=== PATIENT | female | born 1955 | race Caucasian/White ===

== ENCOUNTER → 2016-08-24 | Outpatient (REF) | payer OTHER ==
[~2016-08-24] MED LIST: ACET500T37 PO; AMLO5TAB2 PO; AMOX875T2 PO; BACITAB3 PO; BACT800T5 PO; CALMOIN EX; CEFA1INJ5 IV; COUM7.5T PO; DOCU10CA PO; DULC10SU2 PR; ELIQ5TAB PO; EUCECRE3 EXT; EUCECRE3 TOP; FERG1TAB PO; FERR32TA PO; FLUC10TA PO; FOLI1TAB2 PO; FURO40TA2 PO; GABA300C3 PO; GLIP5TAB15 PO; GLUC5TAB3 PO; HEPA100I16 IV; HEPA500020 SQ; INSUDET SC; INSUH10VL SC; INVO300T PO; LEVEINJ SC; METO10TA2 PO; MILKSUS PO; MIRA3350 PO; MOM30SS PO; MULT1TAB8 PO; NORCOTAB PO; NORM0.9I9 IV; NORV5TAB PO; NYST10PW TOP; PANT40TA2 PO; PERC5TAB6 PO; PHEN200T14 PO; PRED1SUS OS; PRIL40CA PO; PROT1TAB2 PO; PROTPAK PO; REGL10TA6 PO; SENN1TAB2 PO; SENO8.6T2 PO; SUCR1TA PO; TOPR25TA PO; TRAD5TAB PO; TYLE325T5 PO; ZOFR8TAB PO; ZOFR8TAB4 PO; [UNRECOGNIZED DRUG - CODE] IV
[2016-08-24 16:24] LABS: BASO # 0.2 K/mm3 (0.0-0.2); BASO % 2.2 % (0.0-1.0); EOS # 0.3 K/mm3 (0.0-0.50); EOS % 3.5 % (0.0-3.0); LARGE UNSTAINED CELL # 0.1 K/mm3 (0.0-0.4); LARGE UNSTAINED CELL % 1.6 % (0.0-4.0); LYMPH # 1.8 K/mm3 (1.5-4.5); LYMPH % 17.7 % (24.0-44.0); MEAN CORPUSCULAR HEMOGLOBIN 28.1 pg (27.0-33.0); MEAN CORPUSCULAR HGB CONC 31.6 g/dl (32.0-36.5); MEAN CORPUSCULAR VOLUME 88.8 fl (80.0-96.0); MONO # 0.4 K/mm3 (0.0-0.8); MONO % 4.4 % (0.0-5.0); NEUTROPHILS # 6.4 K/mm3 (1.8-7.7); NEUTROPHILS % 70.6 % (36.0-66.0); PLATELET COUNT, AUTOMATED 402 k/mm3 (150-450); RED CELL DISTRIBUTION WIDTH 15.1 % (11.5-14.5); WHITE BLOOD COUNT 9.1 K/mm3 (4.0-10.0)
[2016-08-24 16:49] LABS: ERYTHROCYTE SEDIMENTATION RATE 62 mm/hr (0-30)
[2016-08-24 17:59] LABS: ALBUMIN 3.2 GM/DL (3.2-5.2); ALBUMIN/GLOBULIN RATIO 0.71 (1.00-1.93); ALKALINE PHOSPHATASE 139 U/L (45-117); ALT/SGPT 22 U/L (12-78); ANION GAP 12 MEQ/L (8-16); AST/SGOT 32 U/L (15-37); BILIRUBIN,TOTAL 0.7 MG/DL (0.2-1.0); BLOOD UREA NITROGEN 16 MG/DL (7-18); CALCIUM LEVEL 8.9 MG/DL (8.8-10.2); CARBON DIOXIDE LEVEL 22 MEQ/L (21-32); CHLORIDE LEVEL 106 MEQ/L (98-107); CREATININE FOR GFR 0.92 MG/DL (0.55-1.02); GLOMERULAR FILTRATION RATE > 60.0 (>45); GLUCOSE, FASTING 97 MG/DL (80-110); POTASSIUM SERUM 5.1 MEQ/L (3.5-5.1); SODIUM LEVEL 140 MEQ/L (136-145); TOTAL PROTEIN 7.7 GM/DL (6.4-8.2)
== END ==
LOC: M SFHCPLAZ 15:22
PROVIDERS: ATTEND Internal Medicine Infectious Disease
DX: M86.172 Other acute osteomyelitis, left ankle and foot (principal); E11.621 Type 2 diabetes mellitus with foot ulcer

== ENCOUNTER → 2016-09-13 | Outpatient (CLI) | payer OTHER ==
[2016-09-13 15:02] LABS: BASO % 0.4 % (0.0-1.0); EOS # 0.2 K/mm3 (0.0-0.50); EOS % 2.9 % (0.0-3.0); LARGE UNSTAINED CELL # 0.1 K/mm3 (0.0-0.4); LARGE UNSTAINED CELL % 1.6 % (0.0-4.0); LYMPH # 1.7 K/mm3 (1.5-4.5); LYMPH % 19.8 % (24.0-44.0); MEAN CORPUSCULAR HEMOGLOBIN 27.9 pg (27.0-33.0); MEAN CORPUSCULAR HGB CONC 31.6 g/dl (32.0-36.5); MEAN CORPUSCULAR VOLUME 88.2 fl (80.0-96.0); MONO # 0.4 K/mm3 (0.0-0.8); MONO % 4.3 % (0.0-5.0); NEUTROPHILS % 70.9 % (36.0-66.0); PLATELET COUNT, AUTOMATED 413 k/mm3 (150-450); RED CELL DISTRIBUTION WIDTH 13.7 % (11.5-14.5); WHITE BLOOD COUNT 8.5 K/mm3 (4.0-10.0)
[2016-09-13 15:03] LABS: INR 1.26
[2016-09-13 15:08] LABS: CREATININE FOR GFR 1.04 MG/DL (0.55-1.02); GLOMERULAR FILTRATION RATE 57.2 (>45); POTASSIUM SERUM 4.9 MEQ/L (3.5-5.1)
== END ==
LOC: M LAB 14:08
PROVIDERS: ATTEND Surgery Vascular Surgery
DX: Z01.818 Encounter for other preprocedural examination (principal); I70.212 Atherosclerosis of native arteries of extremities with intermittent claudication, left leg; D69.8 Other specified hemorrhagic conditions

== ENCOUNTER → 2016-09-29 | Outpatient (REF) | payer OTHER ==
[2016-09-29 14:26] LABS: BASO % 0.2 % (0.0-1.0); EOS # 0.3 K/mm3 (0.0-0.50); EOS % 3.5 % (0.0-3.0); LARGE UNSTAINED CELL # 0.1 K/mm3 (0.0-0.4); LARGE UNSTAINED CELL % 1.4 % (0.0-4.0); LYMPH # 1.3 K/mm3 (1.5-4.5); LYMPH % 16.4 % (24.0-44.0); MEAN CORPUSCULAR HEMOGLOBIN 28.4 pg (27.0-33.0); MEAN CORPUSCULAR HGB CONC 31.8 g/dl (32.0-36.5); MEAN CORPUSCULAR VOLUME 89.3 fl (80.0-96.0); MONO # 0.3 K/mm3 (0.0-0.8); MONO % 3.8 % (0.0-5.0); NEUTROPHILS # 6.1 K/mm3 (1.8-7.7); NEUTROPHILS % 74.8 % (36.0-66.0); PLATELET COUNT, AUTOMATED 367 k/mm3 (150-450); RED CELL DISTRIBUTION WIDTH 13.5 % (11.5-14.5); WHITE BLOOD COUNT 8.1 K/mm3 (4.0-10.0)
[2016-09-29 15:42] LABS: ERYTHROCYTE SEDIMENTATION RATE 49 mm/hr (0-30)
== END ==
LOC: M SFHCPLAZ 13:26
PROVIDERS: ATTEND Internal Medicine Infectious Disease
DX: L97.512 Non-pressure chronic ulcer of other part of right foot with fat layer exposed (principal)

== ENCOUNTER → 2016-09-30 | Outpatient (REF) | payer OTHER | LOC: M LAB REF 16:26 | PROVIDERS: ATTEND Surgery | DX: E11.621 Type 2 diabetes mellitus with foot ulcer (principal); L97.414 Non-pressure chronic ulcer of right heel and midfoot with necrosis of bone ==

== ENCOUNTER → 2016-10-21 | Outpatient (REF) | payer OTHER | LOC: M LAB REF 17:08 | PROVIDERS: ATTEND Surgery | DX: E11.621 Type 2 diabetes mellitus with foot ulcer (principal); L97.519 Non-pressure chronic ulcer of other part of right foot with unspecified severity ==

== ENCOUNTER → 2016-11-01 | Outpatient (REF) | payer OTHER | LOC: M SFHCPLAZ 15:07 | PROVIDERS: ATTEND Internal Medicine Infectious Disease | DX: M86.371 Chronic multifocal osteomyelitis, right ankle and foot (principal) ==

== ENCOUNTER → 2016-11-02 | Outpatient (CLI) | payer OTHER ==
[2016-11-02 16:53] LABS: BASO % 0.4 % (0.0-1.0); EOS # 0.3 K/mm3 (0.0-0.50); EOS % 3.1 % (0.0-3.0); LARGE UNSTAINED CELL # 0.1 K/mm3 (0.0-0.4); LARGE UNSTAINED CELL % 1.3 % (0.0-4.0); LYMPH # 1.7 K/mm3 (1.5-4.5); LYMPH % 19.3 % (24.0-44.0); MEAN CORPUSCULAR HGB CONC 32.2 g/dl (32.0-36.5); MEAN CORPUSCULAR VOLUME 93.1 fl (80.0-96.0); MONO # 0.4 K/mm3 (0.0-0.8); MONO % 4.4 % (0.0-5.0); NEUTROPHILS # 5.9 K/mm3 (1.8-7.7); NEUTROPHILS % 71.4 % (36.0-66.0); PLATELET COUNT, AUTOMATED 350 k/mm3 (150-450); RED CELL DISTRIBUTION WIDTH 13.6 % (11.5-14.5); WHITE BLOOD COUNT 8.3 K/mm3 (4.0-10.0)
[2016-11-02 17:05] LABS: ANION GAP 7 MEQ/L (8-16); BLOOD UREA NITROGEN 27 MG/DL (7-18); CALCIUM LEVEL 8.8 MG/DL (8.8-10.2); CARBON DIOXIDE LEVEL 25 MEQ/L (21-32); CHLORIDE LEVEL 104 MEQ/L (98-107); CREATININE FOR GFR 0.93 MG/DL (0.55-1.02); GLOMERULAR FILTRATION RATE > 60.0 (>45); GLUCOSE, FASTING 129 MG/DL (80-110); SODIUM LEVEL 136 MEQ/L (136-145)
[2016-11-02 17:10] LABS: POTASSIUM SERUM 5.7 MEQ/L (3.5-5.1)
[2016-11-02 17:24] LABS: ERYTHROCYTE SEDIMENTATION RATE 49 mm/hr (0-30)
== END ==
LOC: M WUC 12:10
PROVIDERS: ATTEND Internal Medicine Infectious Disease
DX: M86.371 Chronic multifocal osteomyelitis, right ankle and foot (principal)

== ENCOUNTER 2017-03-05 23:40 | Inpatient (IN) | payer OTHER ==
[~2017-03-05] VITALS: Ht 162.6 cm; Wt 77.2 kg
[~2017-03-05 23:40] MED LIST changes: +ACET-683 PO; -ACET500T37 PO; +BACITAB PO; -BACITAB3 PO; -FOLI1TAB2 PO; +FOLI1TAB4 PO; +GABA-282 PO; -GABA300C3 PO; +GLIP1TAB49 PO; -GLIP5TAB15 PO; +PERC5TAB12 PO; -PERC5TAB6 PO; +PHEN-501 PO; -PHEN200T14 PO; -SENO8.6T2 PO; +SENO8.6T5 PO
[2017-03-05] MEDS ORDERED: INVO100T PO (23:59)
[2017-03-05] MEDS ORDERED: BRIM2OPD OS (23:59)
[2017-03-05] MEDS ORDERED: NOVOINJ3 SC (23:59)
[2017-03-05] MEDS ORDERED: GABA-279 PO (23:59)
[2017-03-05] MEDS ORDERED: LATA5OPD OS (23:59)
[2017-03-06 01:59] LABS: BASO % 0.6 % (0.0-1.0); EOS # 0.3 K/mm3 (0.0-0.50); EOS % 4.5 % (0.0-3.0); LARGE UNSTAINED CELL # 0.2 K/mm3 (0.0-0.4); LARGE UNSTAINED CELL % 2.7 % (0.0-4.0); LYMPH # 1.4 K/mm3 (1.5-4.5); LYMPH % 19.5 % (24.0-44.0); MEAN CORPUSCULAR HEMOGLOBIN 29.9 pg (27.0-33.0); MEAN CORPUSCULAR HGB CONC 33.2 g/dl (32.0-36.5); MEAN CORPUSCULAR VOLUME 90.2 fl (80.0-96.0); MONO # 0.4 K/mm3 (0.0-0.8); NEUTROPHILS # 4.7 K/mm3 (1.8-7.7); NEUTROPHILS % 66.6 % (36.0-66.0); PLATELET COUNT, AUTOMATED 372 k/mm3 (150-450); RED CELL DISTRIBUTION WIDTH 13.1 % (11.5-14.5)
[2017-03-06 02:20] LABS: ANION GAP 7 MEQ/L (8-16); BLOOD UREA NITROGEN 20 MG/DL (7-18); CALCIUM LEVEL 8.1 MG/DL (8.8-10.2); CARBON DIOXIDE LEVEL 25 MEQ/L (21-32); CHLORIDE LEVEL 106 MEQ/L (98-107); CREATININE FOR GFR 0.95 MG/DL (0.55-1.02); GLOMERULAR FILTRATION RATE > 60.0 (>45); GLUCOSE, FASTING 178 MG/DL (80-110); SODIUM LEVEL 138 MEQ/L (136-145)
[2017-03-06 03:38] LABS: ERYTHROCYTE SEDIMENTATION RATE 61 mm/hr (0-30)
[2017-03-06] MEDS ORDERED: ALEV220C2 PO (04:20)
[2017-03-06] MEDS ORDERED: INSUDET SC (04:20)
[2017-03-06] MEDS ORDERED: NORC1TAB4 PO (04:20)
[2017-03-06] MEDS ORDERED: FERR325T16 PO (04:20)
[2017-03-06] MEDS ORDERED: ONDANSETRON 4MG/2ML VIAL (J2405) IV PRN (04:30)
[2017-03-06] MEDS ORDERED: DEXTROSE 50% 50 ML SYRINGE IV PRN (04:30)
[2017-03-06] MEDS ORDERED: GLUCAGON FOR INJ 1 MG VIAL (J1610) SC PRN (04:30)
[2017-03-06] MEDS ORDERED: GLUCOSE 4 GM CHEW TABLET PO PRN (04:30)
[2017-03-06] MEDS ORDERED: ACETAMINOPHEN TAB 650MG DOSE (2X325MG) PO PRN (04:30)
--- NOTE | 2017-03-06 04:44 | REP ---
Clinical: Gangrene. Technique: AP, lateral, bilateral oblique views of the left toes. Findings: The osseous structures demonstrate a somewhat mottled heterogeneous appearance primarily noted extending from the mid metatarsal bones to the distal phalanges. Destructive changes at the second proximal interphalangeal joint is appreciated. Swelling and scattered subcutaneous emphysema primarily involving the first toe with ulceration at the terminal tuft is suggested. Impression: Swelling and advanced degenerative changes as described above. Subcutaneous emphysema and ulceration primarily involving the first toe. Signed by Wallace Renae MD 03/06/2017 04:36 A
[2017-03-06] MEDS ORDERED: ISOVUE-370 76% 100ML VIAL (Q9967) As Ordered ONE (04:55)
[2017-03-06] MEDS ORDERED: NS 1,000 ML IV SCH (05:00)
[2017-03-06 06:00] VITALS: BP 160/75
[2017-03-06] MEDS: MEROPENEM INJ 1 GM in D5W MINI-BAG PLUS 100 ML IV SCH ×3 (06:18→22:41)
--- NOTE | 2017-03-06 06:20 | REPUSA ---
Indication: Bilateral lower extremities also. Evaluate perfusion. Technique: Axial CT angiographic images with intravenous contrast. Reformatted coronal and sagittal i mages. Volume rendering images. Findings: Atherosclerotic calcifications of the infrarenal aorta without high-grade stenosis. Mild multifocal narrowing of the right external iliac artery secondary to atheromatous plaques. Mild narrowing of the right common femoral artery. Moderate narrowing of the takeoff of the right superficial femoral artery. Mild multifocal narrowing of the right deep femoral artery. Moderate multifocal narrowing of the right superficial femoral artery marked prominent in its distal third. Moderate narrowing of the right popliteal artery. Diffuse atheromatous plaques in the right posterior tibial, anterior tibial and peroneal arteries. As sociated mild multilevel narrowing. Mild multifocal narrowing of the left external iliac artery. Mild multifocal narrowing of the left superficial femoral artery. Moderate narrowing of the distal third of the left superficial femoral artery. Moderate to severe narrowing of the left popliteal artery. Moderate multifocal narrowing of the left posterior tibial, anterior tibial and peroneal arteries. Bilateral calcaneal soft tissue ulcers are noted. Impression: Bilateral calcaneal soft tissue ulcers. Moderate to severe multilevel occlusive atheromatous disease of the arteries of the lower extremities as detailed above.
[2017-03-06 06:41] LABS: BASO % 0.3 % (0.0-1.0); EOS # 0.4 K/mm3 (0.0-0.50); EOS % 5.3 % (0.0-3.0); LARGE UNSTAINED CELL # 0.2 K/mm3 (0.0-0.4); LYMPH # 1.6 K/mm3 (1.5-4.5); MEAN CORPUSCULAR HGB CONC 33.4 g/dl (32.0-36.5); MEAN CORPUSCULAR VOLUME 89.9 fl (80.0-96.0); MONO # 0.5 K/mm3 (0.0-0.8); MONO % 7.6 % (0.0-5.0); NEUTROPHILS # 4.5 K/mm3 (1.8-7.7); NEUTROPHILS % 63.8 % (36.0-66.0); PLATELET COUNT, AUTOMATED 360 k/mm3 (150-450); RED CELL DISTRIBUTION WIDTH 13.3 % (11.5-14.5)
[2017-03-06 06:59] LABS: ALBUMIN 2.5 GM/DL (3.2-5.2); ALBUMIN/GLOBULIN RATIO 0.58 (1.00-1.93); ALKALINE PHOSPHATASE 152 U/L (45-117); ALT/SGPT 22 U/L (12-78); ANION GAP 6 MEQ/L (8-16); AST/SGOT 19 U/L (15-37); BILIRUBIN,TOTAL 0.5 MG/DL (0.2-1.0); BLOOD UREA NITROGEN 17 MG/DL (7-18); CALCIUM LEVEL 8.3 MG/DL (8.8-10.2); CARBON DIOXIDE LEVEL 25 MEQ/L (21-32); CHLORIDE LEVEL 108 MEQ/L (98-107); CREATININE FOR GFR 0.87 MG/DL (0.55-1.02); GLOMERULAR FILTRATION RATE > 60.0 (>45); GLUCOSE, FASTING 85 MG/DL (80-110); MAGNESIUM LEVEL 2.4 MG/DL (1.8-2.4); POTASSIUM SERUM 3.9 MEQ/L (3.5-5.1); SODIUM LEVEL 139 MEQ/L (136-145); TOTAL PROTEIN 6.8 GM/DL (6.4-8.2)
--- NOTE | 2017-03-06 07:20 | HPE ---
DATE OF ADMISSION: 03/06/2017 CHIEF COMPLAINT: Left foot maggot. PRIMARY CARE PROVIDER: Dr. Stephanie Murphy. IMPRESSION PRINTER: Dr. Ledbetter. INFECTIOUS DISEASE: Dr. Power. PODIATRY: Dr. Raya. VASCULAR SURGEON: Dr. Espinoza. 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 The patient was brought in here because earlier today the patient has been receiving wound care services from Dr. Ledbteter, last wound care was Monday. Earlier today the patient had a dressing change by and saw maggot in her left great toe, subsequently called emergency medical services (EMS). The patient denies any fever or chills, chest pain, pressure or discomfort. The patient stated that she has been following wound care recommendation by Dr. Ledbetter. Also, the patient reported that recently, a year ago, she had seen Dr. Espinoza with balloon angioplasty for peripheral vascular disease. Denies any vision or hearing change, nausea or vomiting. She is tolerating oral. ALLERGIES: CODEINE and HEPARIN. PAST MEDICAL HISTORY: 1. Cataracts. 2. DVT. 3. Hypertension. 4. Type 2 diabetes, insulin dependent. 5. Right hip fracture. 6. Bilateral heel ulcers with osteomyelitis, Pseudomonas, VRE and Enterobacter. PAST SURGICAL HISTORY: 1. Debridement of right heel January 2016. 2. Right hip fracture with hemiarthroplasty January 2016. 3. Hysterectomy. 4. Cholecystectomy. 5. Bilateral cataract surgery. 6. Bilateral lower extremity balloon angioplasty. FAMILY HISTORY: Father with coronary artery disease. Mother with diabetes. Sister with diabetes. SOCIAL HISTORY: The patient lives at home with . Denies smoking or alcohol usage. No illicit drug use. REVIEW OF SYSTEMS: Negative except for bilateral lower extremity wound. HOME MEDICATIONS: - [place] 5/325 every eight hours as needed - Aleve 220 mg by mouth every eight hours as needed - Eliquis 5 mg by mouth twice a day - brimonidine eye drops three times daily - Invokana 100 mg by mouth daily - ferrous gluconate 324 mg by mouth twice a day - gabapentin 100 mg by mouth twice a day - NovoLog 5 units sub cu every evening - Levemir insulin 4 units sub cu every evening - Latanoprost eye drops intraocular every evening PHYSICAL EXAMINATION: VITAL SIGNS: Temperature 98.6, pulse 70, respirations 18, blood pressure 142/63, pulse oxygen 98% on room air. GENERAL: The patient is awake, alert and oriented times three, in no acute distress. HEENT: Normocephalic atraumatic. PULMONARY; Bilaterally clear to auscultation. Cardiac: Regular rate and rhythm, normal S1, S2. ABDOMEN: Soft, nontender, positive bowel sounds. EXTREMITIES: Dorsalis pedal/ posterior tibial (DP/PT) pulses bilateral thready. Extremities seem to be warm and perfused. Right foot, great toe with stage II ulcers and also stage III heel ulcers. Left foot great toe with bleeding and maggots small in size crawling. They are numerous, more in the teens and close to 200 maggots and also heel ulcers stage III with mild erythema and tissue necrosis on the great toe as well. LABORATORY DATA: WBC 7, hemoglobin 10.5, hematocrit 31.8, platelets 372. Chemistries: Sodium 138, potassium 4, chloride 106, bicarbonate 25, BUN 20, creatinine 0.95, C-reactive protein 12. RADIOLOGIC IMAGING: Still pending. ASSESSMENT AND PLAN: This is a 61-year-old female patient with underlying medical history of deep venous thrombosis (DVT), cataracts, type 2 diabetes insulin dependent, hypertension, bilateral heel osteomyelitis, with vancomycin resistant Enterococci (VRE) Pseudomonas and Enterobacter cultures, with diabetic foot ulcer presented with maggots crawling on her left great toe. PROBLEMS: 1. Maggots crawling on her left great toe likely with tissue necrosis, likely osteomyelitis. Will get MRI of bilateral lower extremities, as well as CT angio to assess blood perfusion. Will consult Dr. Raya in the morning. Followup cultures, would culture, blood culture, given history of infection. The patient has elevated C-reactive protein. The patient likely also has osteomyelitis given history of Pseudomonas, VRE, as well as Enterobacter will place the patient on Meropenem, Linezolid for the time being. The patient does not appear septic but will likely give some intravenous fluids given patient will be given contrast for the CT angio. Will consider vascular consultation based on the CT angio report. Obtain infectious disease consult based on cultures. Will obtain A1c to assess diabetic glucose control. 2. History of deep venous thrombosis (DVT): Continue Eliquis. 3. Diabetes type 2. Continue basal bolus insulin. Followup A1c. Followup fingersticks. 4. Hypertension. Continue to monitor blood pressure. Patient is currently not on any blood pressure medication. 5. Iron deficiency. Continue iron supplementation. 6. Cataracts. Continue home medication. 7. Deep venous thrombosis prophylaxis. The patient is on Eliquis for treatment of DVT. DISPOSITION: Pending clinical improvement, podiatry followup, wound care.
[2017-03-06] MEDS: HumaLOG INSULIN (NovoLOG) PER UNIT SC SCH ×4 (07:30→20:20)
[2017-03-06] MEDS: LACTOBACILLUS ACIDOPHILUS CAP (BACID) PO SCH ×3 (08:57→18:17)
[2017-03-06] MEDS: LINEZOLID 600 MG in APPROPRIATE DILUENT 1 EA IV SCH ×2 (08:57→20:19)
[2017-03-06] MEDS: APIXABAN 5 MG TAB (ELIQUIS) PO SCH ×2 (08:58→20:19)
[2017-03-06] MEDS: GABAPENTIN 100 MG CAP PO SCH ×2 (08:58→20:19)
[2017-03-06] MEDS: FERROUS GLUCONATE 324 MG TAB PO SCH ×2 (08:58→20:19)
[2017-03-06] MEDS: BRIMONIDINE 0.15% OPHTH SOLN 5 ML OS SCH ×3 (08:59→20:19)
[2017-03-06] MEDS: SENOKOT S TAB PO SCH ×2 (08:59→20:19)
[2017-03-06 14:00] VITALS: BP 185/84
--- NOTE | 2017-03-06 15:58 | IPN ---
DATE: 03/06/2017 Time: 11:30 a.m. The patient has been seen and examined at the bedside. No acute events overnight. The patient denies any chest pain, trouble breathing, abdominal pains, nausea, vomiting. Still admits to maggots in the left big toe. At the time of interview, Dr. Raya was also in the room and was going to start debridement of the necrotic skin and try to remove the maggots. PHYSICAL EXAMINATION: VITAL SIGNS: Temperature 97.2, pulse 82, respirations 18, blood pressure 160/75. Oxygen saturation at 99% on room air. GENERAL: The patient was alert, awake, oriented times three. Does not appear to be in distress. Laying comfortably in bed with head elevated at 45 degree angle. HEENT: Normocephalic, atraumatic. Extraocular motors intact. Mucous moist. NECK: Supple. No neck lymphadenopathy. CARDIOVASCULAR: Regular rate and rhythm, normal S1, S2. Difficult to auscultate due to increased AP diameter. ABDOMEN: Obese, positive bowel sounds. Soft. No peritoneal signs. No ecchymosis. EXTREMITIES: Trace edema in bilateral lower extremity. The patient has floating boats on bilateral lower extremity. Big toe bilaterally shows necrotic wounds. The left side is much worse. The left side of the big toe also has numerous maggots on the tip of the big toe. At least 10 of them. Appears to be roughly half a centimeter long and 1 mm wide and appears to be very active, moving around on the toe. SKIN: Warm and dry. NEUROLOGICAL: Cranial nerves II through XII intact. LABS: WBC 7, hemoglobin 10.5, hematocrit 31.3 with platelet count of 360 and MCV of 89.9. Sodium 139, potassium 3.9, chloride 108. Bicarbonate 25, anion gap was 6. BUN 17 , creatinine 0.87. GFR greater than 60. Fasting glucose 85. Ac1 was 6. Calcium 8.3 , magnesium 2.4, total bilirubin 0.5, AST 19, ALT 22, alkaline phosphatase 152. CRP was 13.2, total protein 6.8, albumin 2.5. The patient's glucose was 199. Gram stain and culture of the right and also left foot are pending. Blood cultures times two are pending. The patient's toe x-ray from earlier this morning shows swelling and advanced degenerative changes, subcutaneous emphysema and ulceration primarily involving the first toe. The patient's CT angio of the left lower extremity shows bilateral calcaneal soft tissue ulcer, moderate to severe, multiple occlusions through atheromatous disease of the arteries of the lower extremity. ASSESSMENT AND PLAN: 61-year-old female with past medical history most significantly for history of deep venous thrombosis (DVT), hypertension, insulin dependent type 2 diabetes, right hip fracture, bilateral heel ulcers and osteomyelitis with pseudomonas and vancomycin-resistant Enterococci (VRE) and Enterobacter in the past. Status post debridement presented with: 1. Maggots infestation of the left great toe, likely secondary to tissue necrosis and possibly osteomyelitis. MRI of bilateral lower extremities has been ordered. CT angio shows significant peripheral vascular disease. Dr. Raya has seen patient this morning and will start on debridement and maggot removal. In addition, Dr. Espinoza our vascular surgeon will be consulted who has seen the patient in the past. At this point, will start the patient on IV antibiotics linezolid and meropenem for suspected osteomyelitis and continue to followup with wound culture and blood culture. 2. History of DVT. Continue Eliquis. 3. Type 2 diabetes. Continue basal insulin. A1c appears to be 6, at goal. Continue to monitor. 4. Hypertension. Continue to monitor blood pressure. 5. Iron deficiency anemia. Continue iron supplement. 6. Cataracts. Continue home medication. 7. DVT prophylaxis. On Eliquis. DISPOSITION: Pending debridement of the left big toe by Dr. Raya. Dr. Espinoza will be consulted for possibly vascular procedure. At this point will continue wound care and continue IV antibiotics for possible osteomyelitis. The patient has been discussed with attending doctor, Dr. Dorsey. I have both independently examined this patient as well as reviewed the dictated note. I have discussed in detail with the resident the findings and plan of treatment as documented in the residents note. I will continue to follow the patient and offer further guidance to the patients care as necessary during this hospital stay. TERESA
--- NOTE | 2017-03-06 16:09 | ECGEPIP ---
Stationary ECG Study [facility] Test Date: 2017-03-06 Pat Name: SPEEDY DUEÑAS Department: Room: [place] [address] Gender: F Education And Training Coordinator: REEMA : 1955 Requested By: ISMAEL MARR Order Number: [id number] Reading MD: Pepe Dorsey Measurements Intervals [place] Rate: 80 P: 48 [place]: 162 QRS: -32 QRSD: 75 T: 78 QT: 398 QTc: 460 Interpretive Statements SINUS RHYTHM MARKED LEFT AXIS DEVIATION NONSPECIFIC T-WAVE ABNORMALITY Borderline prolonged QTc Electronically Signed On 03-06-2017 16:08:51 EDT by Pepe Dorsey
[2017-03-06] MEDS: NORCO, ANEXSIA 5/325MG TABLET (HYDROcodone/ACETAMINOPHEN) PO PRN (19:00)
--- NOTE | 2017-03-06 19:10 | REPUSA ---
MRI of the left foot with and without contrast Clinical History: infection, rule out osteomyelitis. Technique: Multiecho, Multiplanar MRI images of the Left foot were obtained before and after admini stration of intravenous gadolinium contrast. Comparison: None. Findings: There are ill-defined areas of T1 hypointensity within the calcaneus along the lateral aspe ct, and demonstrates T2 edema. A soft tissue defect is seen adjacent to the lateral aspect of the ramy caneus in the region of the heel. No focal evidence of abscess is identified, although inflammatory c hanges are seen throughout the subcutaneous tissues at the site. Impression: 1. Signal abnormalities within the lateral posterior aspect of the left calcaneus with the lateral sk in defect. This the findings are suspicious for a tiny focus of osteomyelitis with possible small are a of cellulitis in the lateral heel. 2. No focal enhancing mass or abscess is identified.
[2017-03-06] MEDS: LATANOPROST 0.005% OPHTH SOLN 2.5 ML OS SCH (20:19)
[2017-03-06] MEDS: LEVEMIR (INSULIN DETEMIR) 1 UNITS/0.01ML SC SCH (20:20)
[2017-03-06 22:00] VITALS: BP 131/62
[2017-03-07] MEDS: MEROPENEM INJ 1 GM in D5W MINI-BAG PLUS 100 ML IV SCH ×3 (05:40→23:23)
[2017-03-07 06:00] VITALS: BP 144/63
--- NOTE | 2017-03-07 06:07 | IPN ---
DATE: 03/06/2017, approximately 12:15 p.m. CHIEF COMPLAINT: 61-year-old female seen for evaluation of ulcer with necrotic changes on her left great toe. Patient is seen today for evaluation. PAST MEDICAL HISTORY: Cataracts. Deep vein thrombosis. Hypertension. Type 2 diabetes. Right hip fracture. Bilateral heel ulcers. PAST SURGICAL HISTORY: Debridement of right heel ulcer. Repair of hip fracture with hemiarthroplasty. Hysterectomy. Cholecystectomy. Bilateral cataracts. Lower extremity balloon angioplasties. HOME MEDICATIONS: - [place] 5/325 - Aleve 220 - Eliquis 5 mg - Brimonidine three times a day - Invokana 100 mg daily - ferrous gluconate 324 mg - gabapentin 100 mg twice a day - NovoLog 5 units subcutaneous - Levemir insulin 4 units subcutaneous every evening - Latanoprost eye drops every evening Evaluation of the patient's foot reveals an ulceration present on the plantar surface of the left foot. This ulceration has necrotic changes at the end and there is maggots in the interdigital spaces as well as the ulcer itself. The ulcer on the right hallux measures 2.5 cm from medial to lateral and 3.5 cm from distal to proximal. The distal phalanx is visible in the wound with some discoloration. The plantar ulcer is dark in color. Her pedal pulses are not palpable. Maggots are present in the wound as well as in the interdigital spaces. After appropriate informed consent and appropriate time out, utilizing a sterile curette, the ulcer was debrided. The maggots were sent for identification. The wound was cleaned with saline and a dry sterile dressing was applied. Patient is a patient of Dr. Espinoza'kimberly who will evaluate this patient for her arterial disease. Her hallux does not appear to be salvageable. Her questions are answered. Dr. Ledbetter has been treating her bilateral extremity ulcers. Would recommend continuing with his therapy on the heels and right hallux. Dressings on the right foot would include daily wound changes with utilizing Vashe, however, amputation will probably be required. Her questions are answered. Thank you for this consultation.
[2017-03-07 06:37] LABS: MEAN CORPUSCULAR HEMOGLOBIN 29.8 pg (27.0-33.0); MEAN CORPUSCULAR HGB CONC 32.8 g/dl (32.0-36.5); MEAN CORPUSCULAR VOLUME 90.7 fl (80.0-96.0); RED CELL DISTRIBUTION WIDTH 13.3 % (11.5-14.5); WHITE BLOOD COUNT 8.2 K/mm3 (4.0-10.0)
[2017-03-07 07:38] LABS: ANION GAP 7 MEQ/L (8-16); BLOOD UREA NITROGEN 11 MG/DL (7-18); CALCIUM LEVEL 7.9 MG/DL (8.8-10.2); CARBON DIOXIDE LEVEL 24 MEQ/L (21-32); CHLORIDE LEVEL 111 MEQ/L (98-107); CREATININE FOR GFR 0.83 MG/DL (0.55-1.02); GLOMERULAR FILTRATION RATE > 60.0 (>45); GLUCOSE, FASTING 149 MG/DL (80-110); MAGNESIUM LEVEL 2.3 MG/DL (1.8-2.4); POTASSIUM SERUM 4.2 MEQ/L (3.5-5.1); SODIUM LEVEL 142 MEQ/L (136-145)
[2017-03-07] MEDS: HumaLOG INSULIN (NovoLOG) PER UNIT SC SCH ×4 (08:38→21:00)
[2017-03-07] MEDS: NORCO, ANEXSIA 5/325MG TABLET (HYDROcodone/ACETAMINOPHEN) PO PRN ×2 (08:39→17:11)
[2017-03-07] MEDS: FERROUS GLUCONATE 324 MG TAB PO SCH ×2 (08:39→21:10)
[2017-03-07] MEDS: LACTOBACILLUS ACIDOPHILUS CAP (BACID) PO SCH ×3 (08:39→17:07)
[2017-03-07] MEDS: LINEZOLID 600 MG in APPROPRIATE DILUENT 1 EA IV SCH ×2 (08:39→20:00)
[2017-03-07] MEDS: APIXABAN 5 MG TAB (ELIQUIS) PO SCH ×2 (08:39→21:11)
[2017-03-07] MEDS: SENOKOT S TAB PO SCH ×2 (08:39→21:10)
[2017-03-07] MEDS: GABAPENTIN 100 MG CAP PO SCH ×2 (08:39→21:11)
[2017-03-07] MEDS: BRIMONIDINE 0.15% OPHTH SOLN 5 ML OS SCH ×3 (08:40→21:12)
[2017-03-07] MEDS ORDERED: BUPIVACAINE HCL 0.5% 30 ML VIAL As Ordered ONE (12:36)
[2017-03-07] MEDS ORDERED: LIDOCAINE 1% SDV INJ 30 ML VIAL As Ordered ONE (12:36)
[2017-03-07] MEDS ORDERED: MIDAZOLAM INJ 2 MG/2 ML VIAL (J2250) As Ordered ONE (12:37)
[2017-03-07] MEDS ORDERED: fentaNYL 100 MCG/2 ML INJECTION (J3010) As Ordered ONE (12:38)
--- NOTE | 2017-03-07 13:49 | IPN ---
DATE: 03/07/2017 Time: 1300 hours The patient has been seen and examined at the bedside. No acute events overnight. The patient did have a low grade temperature of 100 yesterday at 10:00; however, no full blown fever. The patient denies any chest pain, trouble breathing, abdominal pain, nausea, vomiting, diarrhea, constipation today. There is a planned operating room for tip of the toe removal this afternoon. PHYSICAL EXAMINATION: VITAL SIGNS: Temperature 98.8, pulse 63, respirations 18, blood pressure 144/63. Oxygen saturation at 98% on room air. GENERAL: The patient is an obese, elderly female who was alert, awake, oriented times three. Does not appear to be in distress. Resting comfortably in her bed with head elevated roughly 30 degree. HEENT: Normocephalic, atraumatic. Extraocular motors intact. Mucosa moist. NECK: Supple. No neck lymphadenopathy. CARDIOVASCULAR: Regular rate and rhythm. S1, S2. Difficult to auscultate due to increased AP diameter. LUNGS: Clear to auscultation bilaterally. No wheezes, rales or rhonchi. ABDOMEN: Positive bowel sounds. Soft, nontender, nondistended. Obese. No peritoneal signs. EXTREMITIES: No pitting edema; however, patient's left big toe still appears to be infested by maggots and they were still very active moving about her toes. LABS: WBC 8.2, hemoglobin 9.7, hematocrit 29.6 with platelet count of 359, MCV of 90.7. Sodium 142, potassium 4.2, chloride 101. Bicarbonate 24, BUN 11, creatinine 0.83, GFR greater than 60, fasting glucose 149, BUN 17, creatinine 0.87. GFR greater than 60. Fasting glucose 149, calcium 7.9, C-reactive protein was reduced compared to the day prior at 10.6. Accu-Check glucose shows 187, 225. The patient's foot culture came back positive for Streptococcus and also Streptococcus agalactiae and cornyebacterium. The patient's right wound culture result is pending. The patient's tissue biopsy result is pending. The patient's foot MRI done yesterday afternoon shows signal abnormalities within the lateral posterior aspect of the left calcaneus with lateral skin defect. Findings suspicious for tiny focal osteomyelitis with possible small area of cellulitis in the lateral heel. ASSESSMENT AND PLAN: 61-year-old female with past medical history most significantly for history of deep venous thrombosis (DVT), hypertension, insulin dependent type 2 diabetes, right hip fracture, bilateral heel ulcers and osteomyelitis with pseudomonas and vancomycin-resistant Enterococci (VRE) and Enterobacter in the past. Status post debridement with Dr. Raya presented with: 1. Maggots infestation of the left great toe, likely secondary to tissue necrosis. The patient was status post bedside debridement with Dr. Raya yesterday and the patient will undergo partial toe amputation this afternoon with Dr. Espinoza. The patient's wound culture does come back to show Streptococcus, Staphylococcus and also corynebacterium. Right sided culture is pending. We will followup. We will continue patient on IV antibiotics with linezolid and also meropenem and continue to monitor the patient's WBC and continue to follow the patient's culture. 2. History of deep vein thrombosis (DVT). Continue Eliquis. 3. Type 2 diabetes. A1c appears to be 6. Continue insulin sliding scale. 4. Hypertension. Continue blood pressure medication. 5. Iron deficiency anemia. Continue iron supplement. 6. Cataracts. Continue home medication. 7. DVT prophylaxis. On Eliquis. DISPOSITION: The patient is status post bedside debridement with Dr. Raya. The patient will have partial toe amputation with Dr. Espinoza this afternoon. Continue IV antibiotics. There is suspicion of osteomyelitis at the left heel, however. The patient has been discussed with attending doctor, Dr. Khanna. My preceptor for this patient encounter was Dr. Khanna. The preceptor was physically present in the building during the encounter and was fully available. As needed, all aspects of the patient interview, examination, medical decision making process, and medical care plan development were reviewed and approved by the preceptor. The preceptor is aware and concurs with the plan as stated in the body of this note and will attest to such by his/her cosignature.
--- NOTE | 2017-03-07 14:17 | IPNPDOC ---
Date Seen The patient was seen on 03/07/17. Progress Note SUBJECTIVE: Patient has infection of her left first toe with maggot infestation and gangrene at the tip of the toe with exposed bone. Patient has worsening cellulitis of the forefoot. OBJECTIVE PHYSICAL EXAMINATION: VITAL SIGNS: Please see below. GENERAL: Lying in bed in no apparent distress HEENT: Normal CARDIOVASCULAR: Regular rate and rhythm. RESPIRATORY: To auscultation. ABDOMINAL: Soft nontender nondistended EXTREMITIES: Left foot wounds are clean with some granulation tissue. The left first toe wound shows gangrenous changes at the tip of the toe with exposed bone and maggots within the wound. Right foot wounds are clean with good granulation tissue. NEUROLOGICAL: Awake alert oriented 3 with no focal deficits PSYCHOLOGICAL: Normal LABORATORY DATA: Please see below. MICROBIOLOGY: Please see below. ASSESSMENT AND PLAN: This is a 61-year-old white female with atherosclerotic arterial occlusive disease in both her extremity is with nonhealing ulcers in the right and left feet. Patient has worsening cellulitis and an infected left first toe with gangrene osteomyelitis with exposed bone and maggot infestation. PROBLEMS: 1. Left first toe gangrene, cellulitis and maggot infestation: Patient requires emergent debridement of the left first toe with removal of all nonviable tissue , gangrenous tissue gangrenous bone and maggots. 2. Bilateral lower extremity arterial insufficiency with atherosclerotic arterial occlusive disease: She will require angiography of the lower extremities with possible angioplasty and stent this will be set up in the next 24-48 hours. VS, I&O, 24H, Fishbone Vital Signs/I&O Vital Signs Date Time Temp Pulse Resp B/P (MAP) Pulse Ox O2 Delivery O2 Flow Rate FiO2 03/07/17 09:09 18 03/07/17 06:00 98.8 63 144/63 (90) 98 Room Air I&O- Last 24 Hours up to 6 AM 03/07/17 06:00 Intake Total 1600 ml Output Total 2100 ml Balance -500 ml Laboratory Data 24H LABS Laboratory Tests 2 03/06/17 18:08: Bedside Glucose (Misc Panel) 149H 03/06/17 20:04: Bedside Glucose (Misc Panel) 187H 03/07/17 06:18: Anion Gap 7L, Glomerular Filtration Rate > 60.0, Blood Urea Nitrogen 11, Creatinine 0.83, Sodium Level 142, Potassium Level 4.2, Chloride Level 111H, Carbon Dioxide Level 24, Calcium Level 7.9L, Magnesium Level 2.3, C-Reactive Protein, Quantitative 10.60H 03/07/17 11:43: Bedside Glucose (Misc Panel) 225H CBC/BMP Laboratory Tests 03/07/17 06:18 Red Blood Count 3.27 L, Mean Corpuscular Volume 90.7, Mean Corpuscular Hemoglobin 29.8, Mean Corpuscular Hemoglobin Concent 32.8, Red Cell Distribution Width 13.3, Calcium Level 7.9 L Microbiology Microbiology 03/06/17 Blood Culture - Preliminary, Resulted No growth after 24 hours . All specim... 03/06/17 Blood Culture - Preliminary, Resulted No growth after 24 hours . All specim... 03/06/17 Gram Stain - Final, Resulted 03/06/17 Wound Culture, Resulted Pending 03/06/17 Gram Stain - Final, Resulted 03/06/17 Wound Culture - Preliminary, Resulted Staphylococcus Sp Coag Neg Strep Agalactiae Group B Corynebacterium Species Serg Espinoza MD Mar 07, 2017 14:17
--- NOTE | 2017-03-07 14:19 | ED PDOC ---
Provider Note 03/07/2017 Patient requires emergent debridement and removal of infectious tissue from the left first toe which shows gangrene, cellulitis, exposed infected bone, and maggot infestation. Patient ate a full breakfast this morning and requires emergent surgical intervention. The patient understands the risks of proceeding with surgery after eating a full breakfast and the procedure will be attempted under local only. This is an emergent surgery due to ascending cellulitis and gangrene and infection in the left foot. Serg Espinoza MD Mar 07, 2017 14:18
--- NOTE | 2017-03-07 14:28 | ROOPDOC ---
[facility] Report Of Operation Report of Operation DATE OF PROCEDURE: 03/07/17 PREPROCEDURE DIAGNOSES: Left first toe gangrene, maggot infestation in the left first toe wound, osteomyelitis with exposed gangrenous bone, nonhealing left heel ulcer and cellulitis of the left foot. Femoral-popliteal arterial atherosclerotic occlusive disease. POSTPROCEDURE DIAGNOSES: Left first toe gangrene, maggot infestation in the left first toe wound, osteomyelitis with exposed gangrenous bone, nonhealing left heel ulcer and cellulitis of the left foot. Femoral-popliteal arterial atherosclerotic occlusive disease.. PROCEDURE: Sharp excisional debridement of the left first toe bone, skin, subcutaneous tissue and muscle. INDICATION: Patient is a 61-year-old female with ulcerations of the left and right heels as well as the left first toe. The patient has maggots in the left first toe wound and necrotic gangrenous tissue with exposed bone. The foot is more cellulitic then upon admission. Patient will require debridement of all nonviable tissue and removal of nonviable bone and maggots. Risks benefits and alternative treatment options were discussed with the patient. Alternative treatment options included but were not limited to no intervention. Benefits included but were not limited to removal of infectious tissue causing cellulitis in the foot and risking possible loss of limb. Risks included but were not limited to infection, bleeding, renal failure requiring hemodialysis, possible need for further surgical intervention and/or amputation, cerebrovascular accident, myocardial infarction, pulmonary and was, DVT, loss of limb, loss of life and poor outcome. He understands and accepts these risks and consents to proceed. SURGEON: Mulugeta Espinoza M.D. TERMITE CONTROL SERVICER: None ANESTHESIA: Local with 10 mL of 1% lidocaine mixed with half percent Marcaine. ESTIMATED BLOOD LOSS: Approximately 5 mL. COMPLICATIONS: None. REMARKS: Deep tissue was sent for culture and sensitivity. DESCRIPTION OF PROCEDURE: Patient was taken to the operating room placed the stretcher in the left foot was prepped and draped in a standard surgical fashion after a timeout was performed confirming the appropriate patient and procedure. The nonviable tissue on the left first toe was then debridement using sharp debridement with a scalpel with removal of all nonviable tissue including skin and subcutaneous tissue muscle and exposed dehydrated gangrenous bone. Once all nonviable tissue was removed a wet to dry dressing was placed on the left first toe a Xeroform dressing was placed on the heel ulcer and the foot was wrapped with Kerlix. Patient was transferred to the recovery room in stable condition. Serg Espinoza MD Mar 07, 2017 14:28
[2017-03-07] MEDS ORDERED: LR 1,000 ML IV SCH (14:30)
[2017-03-07] MEDS ORDERED: ONDANSETRON 4MG/2ML VIAL (J2405) IV PRN (14:30)
[2017-03-07] MEDS ORDERED: fentaNYL 100 MCG/2 ML INJECTION (J3010) IV PRN (14:30)
[2017-03-07 15:00] VITALS: BP 140/62
[2017-03-07 20:25] VITALS: BP 195/70
[2017-03-07 20:30] VITALS: BP 148/70
[2017-03-07] MEDS: LEVEMIR (INSULIN DETEMIR) 1 UNITS/0.01ML SC SCH (21:00)
[2017-03-07] MEDS: LATANOPROST 0.005% OPHTH SOLN 2.5 ML OS SCH (21:12)
[2017-03-08] MEDS: MEROPENEM INJ 1 GM in D5W MINI-BAG PLUS 100 ML IV SCH ×2 (05:03→18:24)
[2017-03-08] MEDS: NORCO, ANEXSIA 5/325MG TABLET (HYDROcodone/ACETAMINOPHEN) PO PRN ×2 (05:42→17:00)
[2017-03-08 06:00] VITALS: BP 117/57
[2017-03-08] MEDS: DAKIN'S 0.25% HALF-STRENGTH SOLN 480 ML TOP SCH ×4 (06:00→23:19)
[2017-03-08 06:55] LABS: MEAN CORPUSCULAR HEMOGLOBIN 29.7 pg (27.0-33.0); MEAN CORPUSCULAR HGB CONC 33.1 g/dl (32.0-36.5); MEAN CORPUSCULAR VOLUME 89.7 fl (80.0-96.0); RED CELL DISTRIBUTION WIDTH 13.2 % (11.5-14.5); WHITE BLOOD COUNT 8.3 K/mm3 (4.0-10.0)
[2017-03-08 07:05] LABS: ANION GAP 7 MEQ/L (8-16); BLOOD UREA NITROGEN 15 MG/DL (7-18); CALCIUM LEVEL 8.6 MG/DL (8.8-10.2); CARBON DIOXIDE LEVEL 23 MEQ/L (21-32); CHLORIDE LEVEL 104 MEQ/L (98-107); CREATININE FOR GFR 0.79 MG/DL (0.55-1.02); GLOMERULAR FILTRATION RATE > 60.0 (>45); GLUCOSE, FASTING 171 MG/DL (80-110); MAGNESIUM LEVEL 2.2 MG/DL (1.8-2.4)
[2017-03-08 07:11] LABS: SODIUM LEVEL 134 MEQ/L (136-145)
[2017-03-08] MEDS: LINEZOLID 600 MG in APPROPRIATE DILUENT 1 EA IV SCH ×2 (08:00→16:29)
[2017-03-08] MEDS: APIXABAN 5 MG TAB (ELIQUIS) PO SCH ×2 (08:29→23:15)
[2017-03-08] MEDS: LACTOBACILLUS ACIDOPHILUS CAP (BACID) PO SCH ×3 (08:29→18:24)
[2017-03-08] MEDS: FERROUS GLUCONATE 324 MG TAB PO SCH ×2 (08:29→23:15)
[2017-03-08] MEDS: SENOKOT S TAB PO SCH ×2 (08:29→23:20)
[2017-03-08] MEDS: GABAPENTIN 100 MG CAP PO SCH ×2 (08:29→23:15)
[2017-03-08] MEDS: BRIMONIDINE 0.15% OPHTH SOLN 5 ML OS SCH ×3 (08:30→23:18)
[2017-03-08] MEDS: HumaLOG INSULIN (NovoLOG) PER UNIT SC SCH ×4 (08:31→21:00)
[2017-03-08 14:00] VITALS: BP 129/65
[2017-03-08 15:10] VITALS: BP 145/80
--- NOTE | 2017-03-08 21:25 | IPNPDOC ---
Text Note Date of Service The patient was seen on 03/08/17. NOTE Subjective: Patient seen and examined at bedside. Patient had sharp excision debridement of her left first toe yesterday with Dr. Espinoza, which she tolerated well. She denies any pain in the toes today. She couldn't get IV access after surgery last night, multiple nurses tried and without success. Denies any chest pain, sob, abdominal pain, nausea, vomiting, diarrhea, constipation, blood in urine or stool. Denies any other current new complaints. Objective: Vitals: (See below) General: Patient is a obese elderly lady laying comfortably in bed, AAOx3, not in apparent distress, with head elevated at 30 degrees HEENT: Normal cephalic atraumatic, Extraocular motion intact, pupil equal round and reactive to light, mucosal membrane moist, neck supple, no neck lymphadenopathy Cardio: RRR, Normal S1, S2, No murmur/rubs/gallops Pulm: Clear to auscultations bilaterally, no wheezing, rales, or rhonchi. Abdomen: + bowel sounds, soft, none tender, none distended, no peritoneal signs , no ecchymosis, no masses that were palpable Ext: Dressing on the left foot was dry, clean and intact Skin: Warm and dry Neuro: Cranial Nerve 2 through 12 intact, No focal neurological deficit Labs ( See below) Most significantly: Hgb 10, Na 134, glucose 171, CRP 7.7 Tissue pathology of left toe shows live maggots. Images/Procedures: 03/07/17 Dr. Espinoza performed debridement of left first toe. Assessment and Plan: 61-year-old female with past medical history most significantly for history of deep venous thrombosis (DVT), hypertension, insulin dependent type 2 diabetes, right hip fracture, bilateral heel ulcers and osteomyelitis with pseudomonas and vancomycin-resistant Enterococci (VRE) and Enterobacter in the past. Status post debridement with Dr. Raya presented with: 1. Osteomyelitis, gangrenous, and maggots infested first left great toe s/p bedside debridement by Dr. Raya and emergent OR sharp excisional debridement by Dr. Espinoza POD#1. The patient's wound culture does come back to show Streptococcus, Staphylococcus and also corynebacterium. No sensitivity yet. Right sided culture is pending. We will continue patient on IV antibiotics with linezolid and also meropenem and continue to monitor the patient's WBC and continue to follow the patient's culture. 2. Poor IV access. S/P PICC line this afternoon. IV abx was resumed. 3. Nonehealing left heel ulcer. Will follow Dr. Espinoza recommendation. Patient also had right foot ulcer that was managed by Dr. Ledbetter outpatient according to patient, consulted PT wound care for management. 4. Femoral popliteal arteral atherosclerotic occlusive disease. Possible angiography of LLE with possible angioplasty.Will follow Dr. Espinoza recommendation. 5. History of deep vein thrombosis (DVT). Continue Eliquis. 6. Type 2 diabetes. A1c appears to be 6. Continue insulin sliding scale. Patient stated she was on 50 u insulin at home instead of 5, I have increased it to 10 u tonight due to her glucose appears to be controlled with only 5 unit. 7. Hypertension. Continue blood pressure medication. 8. Iron deficiency anemia. Continue iron supplement. Checking iron panel again to see if she needs additional supplement. 6. Cataracts. Continue home medication. DVT prophylaxis: Eliquis Fluid, Electrolytes, Nutrition: Diabetic diet Code: No advanced directive discussion yet Disposition: Continue to follow Dr. Espinoza recommendation and continue antibiotic will deescalate when sensitivity back for the wound culture. Patient discussed with Dr. Khanna. VS,Alvaro, I+O VS, Alvaro, I+O Laboratory Tests 03/08/17 06:35 Red Blood Count 3.38 L, Mean Corpuscular Volume 89.7, Mean Corpuscular Hemoglobin 29.7, Mean Corpuscular Hemoglobin Concent 33.1, Red Cell Distribution Width 13.2, Calcium Level 8.6 L Vital Signs Date Time Temp Pulse Resp B/P (MAP) Pulse Ox O2 Delivery O2 Flow Rate FiO2 03/08/17 17:30 14 03/08/17 17:00 Room Air 03/08/17 15:10 98.0 75 145/80 (101) 99 I&O- Last 24 Hours up to 6 AM 03/08/17 06:00 Intake Total 1565 ml Output Total 4850 ml Balance -3285 ml GME ATTESTATION GME ATTESTATION My preceptor for this patient encounter was physically present in the building during the encounter and was fully available. As needed, all aspects of the patient interview, examination, medical decision making process, and medical care plan development were reviewed and approved by the preceptor. Preceptor is aware and concurs with the plan as stated in the body of this note and will attest to such by his/her cosignature. SILVESTRE VAN DO Mar 08, 2017 21:25
[2017-03-08 22:00] VITALS: BP 123/58
[2017-03-08] MEDS: LATANOPROST 0.005% OPHTH SOLN 2.5 ML OS SCH (23:18)
[2017-03-08] MEDS: LEVEMIR (INSULIN DETEMIR) 1 UNITS/0.01ML SC SCH (23:18)
[2017-03-09] MEDS: MEROPENEM INJ 1 GM in D5W MINI-BAG PLUS 100 ML IV SCH ×3 (02:59→19:31)
[2017-03-09] MEDS: LINEZOLID 600 MG in APPROPRIATE DILUENT 1 EA IV SCH ×2 (05:00→17:25)
[2017-03-09] MEDS: DAKIN'S 0.25% HALF-STRENGTH SOLN 480 ML TOP SCH ×2 (05:50→15:10)
[2017-03-09 06:00] VITALS: BP 145/69
[2017-03-09 06:26] LABS: MEAN CORPUSCULAR HEMOGLOBIN 29.1 pg (27.0-33.0); MEAN CORPUSCULAR HGB CONC 32.2 g/dl (32.0-36.5); MEAN CORPUSCULAR VOLUME 90.2 fl (80.0-96.0); RED CELL DISTRIBUTION WIDTH 13.2 % (11.5-14.5); WHITE BLOOD COUNT 6.8 K/mm3 (4.0-10.0)
[2017-03-09 06:43] LABS: ANION GAP 7 MEQ/L (8-16); BLOOD UREA NITROGEN 17 MG/DL (7-18); CALCIUM LEVEL 8.3 MG/DL (8.8-10.2); CARBON DIOXIDE LEVEL 26 MEQ/L (21-32); CHLORIDE LEVEL 103 MEQ/L (98-107); CREATININE FOR GFR 0.73 MG/DL (0.55-1.02); GLOMERULAR FILTRATION RATE > 60.0 (>45); GLUCOSE, FASTING 131 MG/DL (80-110); MAGNESIUM LEVEL 2.4 MG/DL (1.8-2.4); POTASSIUM SERUM 4.2 MEQ/L (3.5-5.1); SODIUM LEVEL 136 MEQ/L (136-145)
[2017-03-09] MEDS: HumaLOG INSULIN (NovoLOG) PER UNIT SC SCH ×4 (08:58→22:10)
[2017-03-09] MEDS: APIXABAN 5 MG TAB (ELIQUIS) PO SCH ×2 (08:59→23:53)
[2017-03-09] MEDS: FERROUS GLUCONATE 324 MG TAB PO SCH ×2 (08:59→23:53)
[2017-03-09] MEDS: SENOKOT S TAB PO SCH ×2 (08:59→23:53)
[2017-03-09] MEDS: BRIMONIDINE 0.15% OPHTH SOLN 5 ML OS SCH ×3 (08:59→23:55)
[2017-03-09] MEDS: LACTOBACILLUS ACIDOPHILUS CAP (BACID) PO SCH ×3 (08:59→17:25)
[2017-03-09] MEDS: GABAPENTIN 100 MG CAP PO SCH ×2 (08:59→23:54)
[2017-03-09] MEDS: NS 1,000 ML IV SCH (09:00)
[2017-03-09] MEDS ORDERED: SODIUM CHLORIDE 0.9% INJ 10 ML SYR IV PRN (10:00)
[2017-03-09 11:53] LABS: FOLATE > 24.0 NG/ML (>5.4)
[2017-03-09 11:56] LABS: VITAMIN B12 LEVEL 558 PG/ML (247-911)
[2017-03-09] MEDS ORDERED: ISOVUE-300 61% 50ML VIAL (Q9967) As Ordered ONE (12:13)
[2017-03-09] MEDS ORDERED: HEPARIN 1,000 UNITS/ML 10ML VIAL (FOR RADIOLOGY& DIALYSIS ONLY) As Ordered ONE (12:13)
[2017-03-09] MEDS ORDERED: MIDAZOLAM INJ 2 MG/2 ML VIAL (J2250) As Ordered ONE (12:44)
[2017-03-09] MEDS ORDERED: fentaNYL 100 MCG/2 ML INJECTION (J3010) As Ordered ONE (12:44)
[2017-03-09 13:04] LABS: FERRITIN 92 NG/ML (8-252); PERCENT SATURATION 25.4 % (13.2-37.4); TOTAL IRON BINDING CAPACITY 181 UG/DL (250-450)
[2017-03-09] MEDS: NORCO, ANEXSIA 5/325MG TABLET (HYDROcodone/ACETAMINOPHEN) PO PRN ×2 (15:10→23:54)
[2017-03-09 15:15] VITALS: BP 173/76
[2017-03-09 15:30] VITALS: BP 136/63
[2017-03-09] MEDS: SODIUM CHLORIDE 0.9% INJ 10 ML SYR IV SCH (17:25)
--- NOTE | 2017-03-09 17:25 | IPNPDOC ---
Text Note Date of Service The patient was seen on 03/09/17. NOTE Subjective: Patient seen and examined at bedside. Patient had angiogram and angioplasty of left lower extremity with Dr. Espinoza today, which she tolerated well. She denies any pain in the toes today. Denies any chest pain, sob, abdominal pain, nausea , vomiting, diarrhea, constipation, blood in urine or stool. Denies any other current new complaints. Objective: Vitals: (See below) General: Patient is a obese elderly lady laying comfortably in bed, AAOx3, not in apparent distress, with head elevated at 30 degrees HEENT: Normal cephalic atraumatic, Extraocular motion intact, pupil equal round and reactive to light, mucosal membrane moist, neck supple, no neck lymphadenopathy Cardio: RRR, Normal S1, S2, No murmur/rubs/gallops Pulm: Clear to auscultations bilaterally, no wheezing, rales, or rhonchi. Abdomen: + bowel sounds, soft, none tender, none distended, no peritoneal signs , no ecchymosis, no masses that were palpable Ext: Dressing on the left foot was dry, clean and intact Skin: Warm and dry Neuro: Cranial Nerve 2 through 12 intact, No focal neurological deficit Labs ( See below) Most significantly: Hgb 9.8, Na 136, glucose 131, CRP 5.27 Images/Procedures: 03/07/17 Dr. Espinoza performed angiogram with angioplasty of the left lower extremity Assessment and Plan: 61-year-old female with past medical history most significantly for history of deep venous thrombosis (DVT), hypertension, insulin dependent type 2 diabetes, right hip fracture, bilateral heel ulcers and osteomyelitis with pseudomonas and vancomycin-resistant Enterococci (VRE) and Enterobacter in the past. Status post debridement with Dr. Raya presented with: 1. Osteomyelitis, gangrenous, and maggots infested first left great toe s/p bedside debridement by Dr. Raya and emergent OR sharp excisional debridement by Dr. Epsinoza POD#2. Angiogram and angioplasty of LLE POD#0. The patient's wound culture does come back to show Streptococcus, Staphylococcus and also corynebacterium. Sensitivity shows only strep agalactiae resistant of Tetracycline. We will continue patient on IV antibiotics with linezolid and also meropenem and continue to monitor the patient's WBC and continue to follow the patient's culture. Planning to discharge patient tomorrow. Infectious disease Dr. Power has been consulted regarding deescalating antibiotic and discharge antibiotic medications for osteomyelitis of left great toe, we appreciate her help. 2. Poor IV access. S/P PICC line 03/08/17. IV abx was resumed. 3. Nonehealing left heel ulcer. Will follow Dr. Espinoza recommendation. Patient also had right foot ulcer that was managed by Dr. Ledbetter outpatient according to patient, consulted PT wound care for management. 4. Femoral popliteal arteral atherosclerotic occlusive disease. S/P angiography of LLE with angioplasty. Will follow Dr. Espinoza recommendation. 5. History of deep vein thrombosis (DVT). Continue Eliquis. 6. Type 2 diabetes. A1c appears to be 6. Continue insulin sliding scale. Patient stated she was on 50 u insulin at home instead of 5, I have increased it to 10 u tonight due to her glucose appears to be controlled with only 5 unit. 7. Hypertension. Continue blood pressure medication. 8. Iron deficiency anemia. Checking iron panel again to see if she needs additional supplement, ferritin still on lower side despite infection. Continue iron supplement. 6. Cataracts. Continue home medication. DVT prophylaxis: Eliquis Fluid, Electrolytes, Nutrition: Diabetic diet Code: No advanced directive discussion yet Disposition: Possible discharge tomorrow, will follow Dr. Power's recommendation regarding management of the osteomyelitis. Patient discussed with Dr. Khanna. VS,Fishbone, I+O VS, Fishbone, I+O Laboratory Tests 03/09/17 06:12 Red Blood Count 3.39 L, Mean Corpuscular Volume 90.2, Mean Corpuscular Hemoglobin 29.1, Mean Corpuscular Hemoglobin Concent 32.2, Red Cell Distribution Width 13.2 03/09/17 06:13 Calcium Level 8.3 L Vital Signs Date Time Temp Pulse Resp B/P (MAP) Pulse Ox O2 Delivery O2 Flow Rate FiO2 03/09/17 15:40 14 Room Air 03/09/17 15:30 98.7 76 136/63 (87) 98 I&O- Last 24 Hours up to 6 AM 03/09/17 06:00 Intake Total 2300 ml Output Total 2375 ml Balance -75 ml GME ATTESTATION GME ATTESTATION My preceptor for this patient encounter was physically present in the building during the encounter and was fully available. As needed, all aspects of the patient interview, examination, medical decision making process, and medical care plan development were reviewed and approved by the preceptor. Preceptor is aware and concurs with the plan as stated in the body of this note and will attest to such by his/her cosignature. SILVESTRE VAN DO Mar 09, 2017 17:25
--- NOTE | 2017-03-09 17:51 | REP ---
Procedure: PICC line insertion with Rene-Tom The procedure was performed under the direct supervision of Dr. Spaulding. The risks and benefits of the procedure were explained to the patient and informed consent was obtained. The right basilic vein was localized using ultrasound guidance. The skin was prepped and draped in a sterile fashion. 2% lidocaine was used as a local anesthetic. Using ultrasound guidance the basilic vein was cannulated and a 0.018 guidewire was inserted and advanced to the SVC using fluoroscopic guidance. The needle was removed and a 5.5 Maldivian dilator and peel-away sheath was inserted over the guide wire. A 5.5 Maldivian dual lumen catheter was cut to length of 40 cm. The dilator was removed and the catheter was inserted over the guide wire with the tip ending in the SVC. The peel-away sheath was removed and the catheter was flushed with heparinized saline as per Hospital protocol. The catheter was affixed to the skin and a sterile dressing was applied. The the patient tolerated the procedure well and there were no immediate complications. 0.3 minutes of fluoro time was utilized for this procedure. Reviewed by MARY Stern 03/08/2017 03:24 PSigned by George Spaulding MD 03/09/2017 05:39 P
[2017-03-09 22:00] VITALS: BP 144/67
--- NOTE | 2017-03-09 23:16 | IPNPDOC ---
Date Seen The patient was seen on 03/09/17. Progress Note SUBJECTIVE: Patient is without complaint status post left superficial femoral and popliteal artery angioplasty. OBJECTIVE PHYSICAL EXAMINATION: VITAL SIGNS: Please see below. GENERAL: Awake alert in no apparent distress HEENT: Normal CARDIOVASCULAR: Regular rate and rhythm. RESPIRATORY: Clear to auscultation bilaterally. ABDOMINAL: Soft nontender nondistended EXTREMITIES: Wounds are healing well. Good Doppler posterior tibial and dorsalis pedis signals bilaterally. NEUROLOGICAL: Awake alert oriented x3 with no focal deficits PSYCHOLOGICAL: R Aleyda LABORATORY DATA: Please see below. MICROBIOLOGY: Please see below. IMAGING: Patient underwent a left lower extremity angiogram with angioplasty of the left superficial femoral and popliteal arteries with good angiographic, result patient has single vessel runoff into the left foot via the anterior tibial artery. ASSESSMENT AND PLAN: This is a 61-year-old white female with a left first toe gangrene, osteomyelitis and maggot infestation. Patient underwent treatment of the left first toe and has subsequently undergone angiogram of the left lower extremity with angioplasty of the left popliteal and superficial femoral arteries. PROBLEMS: 1. left first toe gangrene and infection: Patient's left foot is improving after undergoing debridement of the left first toe and angiogram of the left lower extremity with angioplasty of the superficial femoral and popliteal arteries.. 2. right lower extremity arterial atherosclerotic occlusive disease and foot wounds: Patient has superficial femoral and popliteal arterial atherosclerotic occlusive disease on the CT angiogram and ulcers of the right foot. These are stable and the patient will require right lower extremity angiogram with possible angioplasty and stent but this can be done as an outpatient. DISPOSITION: Patient is stable and may be ready for discharge in 24-48 hours. VS, I&O, 24H, [facility] Vital Signs/I&O Vital Signs Date Time Temp Pulse Resp B/P (MAP) Pulse Ox O2 Delivery O2 Flow Rate FiO2 03/09/17 15:40 14 Room Air 03/09/17 15:30 98.7 76 136/63 (87) 98 I&O- Last 24 Hours up to 6 AM 03/09/17 05:59 Intake Total 1940 ml Output Total 2975 ml Balance -1035 ml Laboratory Data 24H LABS Laboratory Tests 2 03/09/17 06:13: Anion Gap 7L, Glomerular Filtration Rate > 60.0, Blood Urea Nitrogen 17, Creatinine 0.73, Sodium Level 136, Potassium Level 4.2, Chloride Level 103, Carbon Dioxide Level 26, Calcium Level 8.3L, Magnesium Level 2.4, C-Reactive Protein, Quantitative 5.27H 03/09/17 06:14: Iron Level 46L, Total Iron Binding Capacity 181L, Transferrin % Saturation 25.4 , Ferritin 92, Vitamin B12 Level 558, Folate > 24.0 03/09/17 20:18: Bedside Glucose (Misc Panel) 189H CBC/BMP Laboratory Tests 03/09/17 06:12 Red Blood Count 3.39 L, Mean Corpuscular Volume 90.2, Mean Corpuscular Hemoglobin 29.1, Mean Corpuscular Hemoglobin Concent 32.2, Red Cell Distribution Width 13.2 03/09/17 06:13 Calcium Level 8.3 L Microbiology Microbiology 03/06/17 Blood Culture - Preliminary, Resulted No Growth after 72 hours. All specime... 03/06/17 Blood Culture - Preliminary, Resulted No Growth after 72 hours. All specime... 03/07/17 Wound Culture - Preliminary, Resulted Strep Agalactiae Group B 03/06/17 Gram Stain - Final, Complete 03/06/17 Wound Culture - Final, Complete Pseudomonas Aeruginosa Corynebacterium Species Strep Agalactiae Group B 03/06/17 Gram Stain - Final, Complete 03/06/17 Wound Culture - Final, Complete Staphylococcus Sp Coag Neg Strep Agalactiae Group B Corynebacterium Species Pseudomonas Aeruginosa Serg Espinoza MD Mar 09, 2017 23:16
[2017-03-09] MEDS: LEVEMIR (INSULIN DETEMIR) 1 UNITS/0.01ML SC SCH (23:53)
[2017-03-09] MEDS: LATANOPROST 0.005% OPHTH SOLN 2.5 ML OS SCH (23:55)
[2017-03-10] MEDS: NS 1,000 ML IV SCH (00:49)
[2017-03-10 06:00] VITALS: BP 140/86
[2017-03-10] MEDS ORDERED: LevoFLOXacin 750 MG TABLET PO SCH (06:00)
[2017-03-10] MEDS: SODIUM CHLORIDE 0.9% INJ 10 ML SYR IV SCH (06:55)
[2017-03-10] MEDS: DAKIN'S 0.25% HALF-STRENGTH SOLN 480 ML TOP SCH ×2 (06:59)
[2017-03-10 07:04] LABS: MEAN CORPUSCULAR HEMOGLOBIN 29.8 pg (27.0-33.0); MEAN CORPUSCULAR HGB CONC 32.9 g/dl (32.0-36.5); MEAN CORPUSCULAR VOLUME 90.5 fl (80.0-96.0); RED CELL DISTRIBUTION WIDTH 13.1 % (11.5-14.5); WHITE BLOOD COUNT 7.6 K/mm3 (4.0-10.0)
[2017-03-10 07:15] LABS: ANION GAP 10 MEQ/L (8-16); BLOOD UREA NITROGEN 15 MG/DL (7-18); CARBON DIOXIDE LEVEL 25 MEQ/L (21-32); CHLORIDE LEVEL 105 MEQ/L (98-107); CREATININE FOR GFR 0.76 MG/DL (0.55-1.02); GLOMERULAR FILTRATION RATE > 60.0 (>45); GLUCOSE, FASTING 156 MG/DL (80-110); MAGNESIUM LEVEL 2.3 MG/DL (1.8-2.4); POTASSIUM SERUM 4.7 MEQ/L (3.5-5.1); SODIUM LEVEL 140 MEQ/L (136-145)
[2017-03-10] MEDS: HumaLOG INSULIN (NovoLOG) PER UNIT SC SCH (08:22)
[2017-03-10] MEDS: LACTOBACILLUS ACIDOPHILUS CAP (BACID) PO SCH (08:22)
[2017-03-10] MEDS: GABAPENTIN 100 MG CAP PO SCH (08:22)
[2017-03-10] MEDS: SENOKOT S TAB PO SCH (08:22)
[2017-03-10] MEDS: FERROUS GLUCONATE 324 MG TAB PO SCH (08:22)
[2017-03-10] MEDS: APIXABAN 5 MG TAB (ELIQUIS) PO SCH (08:22)
[2017-03-10] MEDS: BRIMONIDINE 0.15% OPHTH SOLN 5 ML OS SCH (09:53)
[2017-03-10] MEDS ORDERED: LEVA750T7 PO (10:19)
--- NOTE | 2017-03-10 11:36 | DSES ---
DATE OF ADMISSION: 03/06/2017 DATE OF DISCHARGE: 03/10/2017 ADMISSION DIAGNOSES: 1. Maggot infestation and osteomyelitis of the left great toe. 2. History of deep vein thrombosis (DVT) on Eliquis. 3. History of type 2 diabetes. 4. Hypertension. 5. Iron deficiency. 6. Cataract. DISCHARGE DIAGNOSES: 1. Osteomyelitis gangrenous and maggot infected first great toe status post bedside debridement by Dr. Raya and emergent operating room sharp excisional debridement by Dr. Espinoza. Also angiogram and angioplasty of the left lower extremity. 2. Poor IV access status post PICC line insertion and removal. 3. Nonhealing left heel ulcer that has been treated in the past. 4. Femoral popliteal arterial atheromatous occlusive disease status post angiography and angioplasty. 5. History of deep vein thrombosis (DVT) on Eliquis. 6. Insulin dependent type 2 diabetes. 7. Hypertension. 8. Iron deficiency anemia. CONSULTANTS: Dr. Raya from podiatry. Dr. Espinoza from vascular surgery. Dr. Power from infectious disease. PROCEDURES/IMAGINGS: Patient on 03/06/2017 had a toe x-ray on the left side that shows swelling and advanced degenerative changes with subcutaneous emphysema and ulceration involving the first toe. On the same day she had a CT angio of the bilateral lower extremities, which shows bilateral calcaneus soft tissue ulcers, moderate to severe multilevel occlusive atheromatous disease of the arteries of the lower extremity. On the same day she also had a bilateral foot MRI which shows signal abnormalities within the lateral posterior aspect of the left calcaneus with lateral skin defect. Suspicious for a tiny focus of osteomyelitis, possible area of cellulitis of the lateral heel. PROCEDURES: Patient received a bedside debridement with Dr. Raya on 03/07/2017 and received a operating room sharp excisional debridement of the left great toe with Dr. Espinoza on 03/07/2017 and on 03/09/2017 the patient had an angioplasty and angiogram of the left lower extremity with Dr. Espinoza. HISTORY OF PRESENT ILLNESS: 61-year-old female with underlying medical history of insulin dependent type 2 diabetes, DVT, cataract, hypertension, left heel osteomyelitis with vancomycin resistant enterococci, also left heel ulcers, Pseudomonas and enterobacter in the culture. The patient was brought in earlier on the day of admission after receiving wound care service from Dr. Ledbetter. Last wound care was Monday. Patient had dressing change by and the saw maggots in the great toe. Subsequently called emergency medical services (EMS). Patient denies any fevers or chills, chest pain, pressure or discomfort. Patient says she has been following wound care recommendations by Dr. Ledbetter. Also patient reportedly recently that a year she had seen Dr. Espinoza for a balloon arthroplasty and peripheral vascular disease. Denies any vision or hearing changes. No nausea or vomiting. She is tolerating oral. HOSPITAL COURSE: On the day of admission, patient was placed on broad spectrum antibiotics with linezolid and also meropenem. The patient had initially x-ray of the left great toe then a CT angio of the lower extremities, which showed severe peripheral vascular disease and the following day the patient had a bedside debridement with Dr. Ryaa. The following day, the patient had an OR debridement by Dr. Espinoza and after that the patient had an angiogram angioplasty of the left lower extremity. On March 10 Dr. Power was consulted as well and recommended to place the patient on by mouth levofloxacin due to the patient will have the left great toe amputated likely next week by Dr. Espinoza. DISCHARGE CONDITION: Stable. DISPOSITION: Discharge to home. DISCHARGE MEDICATIONS: Including new medication: - levofloxacin 750 mg one tablet by mouth daily Continue home medications: - [place] 5/325 one tablet by mouth every 8 hours - Aleve 220 mg by mouth every 8 hours - Eliquis 5 mg one tablet by mouth twice a day - eye droplet - Invokana 100 mg by mouth daily - ferrous gluconate 324 by mouth twice a day - gabapentin 100 mg one tablet by mouth twice a day - insulin sliding scale 40 units subcutaneously every evening FOLLOWUP: Patient should followup with Dr. Ledbetter on 03/17/2017 at 1:[address] Espinoza on 03/15/2017 at 8:[address] Power within a month and also Dr. Murphy to keep her current appointment. Patient has been discussed with attending doctor, Dr. Khanna. My preceptor for this patient encounter was Dr. Sunny Khanna. The preceptor was physically present in the building during the encounter and was fully available. As needed, all aspects of the patient interview, examination, medical decision making process, and medical care plan development were reviewed and approved by the preceptor. The preceptor is aware and concurs with the plan as stated in the body of this note and will attest to such by his/her cosignature. Edited: fiona 03/11/2017 1229 MTDD
--- NOTE | 2017-03-10 17:09 | REP ---
IMAGES DURING ABDOMINAL AORTA AND LEFT LOWER EXTREMITY ARTERIOGRAM: Multiple images obtained during abdominal aortogram and left lower extremity angiogram. The pelvic arteries are visualized as well as the left lower extremity arteries. 4.2 minutes of fluoroscopy time was utilized. Signed by George Spaulding MD 03/21/2017 08:37 A
[2017-03-10] MEDS ORDERED: LEVO750T13 PO (18:07)
--- NOTE | 2017-03-10 19:52 | CR ---
DATE OF CONSULTATION: 03/09/2017 REASON FOR CONSULTATION: Asked to consult by hospitalist for evaluation of osteomyelitis of the left foot. HISTORY OF PRESENT ILLNESS: Mrs. Moreno is a 61-year-old insulin-dependent diabetic, well known to me from of multiple outpatient visits and inpatient hospitalization. The patient has had chronic osteomyelitis of the left heel, has had multiple cultures in the past with vancomycin-resistant enterococcus (VRE) and Pseudomonas. The patient was brought into the hospital because she had been at Dr. Ledbetter's office and was noted to have maggots on her foot and gangrenous infection of the great toe. She denied having any fever or chills, chest pain, shortness of breath, nausea, vomiting or diarrhea. The patient had a bedside debridement done by Dr. Raya on the first day and then was taken to the operating room (OR) for sharper debridement of the bone by Dr. Espinoza. She also had some associated cellulitis. She is doing much better. She had no fever or chills. She is anxious to go home tomorrow. ALLERGIES: CODEINE and HEPARIN. PAST MEDICAL HISTORY: Significant for: 1. Insulin-dependent diabetes, noncompliant. 2. Cataract. 3. Deep venous thrombosis (DVT). 4. Hypertension. 5. Right hip fracture. 6. Bilateral heel ulcers with osteomyelitis, previous cultures positive for Pseudomonas VRE 7. Peripheral vascular disease status post balloon angioplasty. PAST SURGICAL HISTORY: 1. Multiple debridements of heels, right and left. 2. Right hip fracture with hemiarthroplasty January 2016. 3. Hysterectomy, cholecystectomy. 4. Bilateral cataract surgery. 5. Bilateral lower extremity balloon angioplasty. 6. Recent debridement of the left toe done by Dr. Espinoza. FAMILY HISTORY: Coronary artery disease and diabetes. SOCIAL HISTORY: She lives with her . She denies any smoking, alcohol or illicit drug use. REVIEW OF SYSTEMS: As previously mentioned, no nausea, vomiting, diarrhea, abdominal pain, fever or chills. The patient feels well. Her appetite is good. She does not have significant sensation in her feet except when she steps she has some heel pain on the right. REVIEW OF SYSTEMS: Negative. MEDICATIONS: - meropenem 1 gram intravenous (IV) every eight hours - linezolid 600 mg IV every 12 hours - Levemir 10 units subcutaneous every evening - Xalatan one drop left eye at bedtime - sliding scale - Eliquis 5 mg by mouth twice a day - ferrous gluconate 325 mg by mouth twice a day - gabapentin 100 mg twice a day - Senokot one tablet by mouth twice a day - probiotic one tablet by mouth with meals - hydrocodone - Tylenol one tablet every eight as needed LABORATORY DATA: White count is 6.8, hemoglobin 9.8, hematocrit 30.5 platelets 414. Sodium 136, potassium 4.2, chloride 103, bicarb 26, BUN 17, creatinine 0.7, glucose 131, calcium 8.3, magnesium 2.4, TIBC 181, iron saturation 25, ferritin 92. CRP was 12.0 on admission down to 5.27. Vitamin B12 and folate are within normal. MICROBIOLOGY: Wound cultures left foot had Group B streptococcus, staphylococcus coagulase negtive, Corynebacterium and Pseudomonas. The right foot Pseudomonas group B strep and Corynebacterium, and left foot culture again had BGS Two sets of blood cultures were done on admission and were negative. IMAGING: Foot MRI done on 03/06 shows abnormalities within the left posterior aspect of the left calcaneus with skin defect. These findings are suspicious for tiny focus of osteomyelitis in the lateral heel. Lower extremity CT angiogram done on 03/06 PE : VS stable afebrile Sick looking female in NAD Heart Normal S1-2 no murmurs Lungs clear no wheezed rales or ronchi Abdomen soft NT no HSN Extremty no edema clubbing or cyanosis right foot toe ulcer healing 2x1 cm heel 3x2 cm granulating nicely no surrounding cellulitis left foot big toe amputation distal phalynx with exposed bone, mild cellulitis heel ulcer clean 4.5x 5.5 cm IMPRESSION: Gangrene of left first toe with maggot infestation Culture positive for GBS and pseudomonas Hx left calcaneous osteomyelitis with residual abnormal MRI findings previoucly treated with IV antibiotics PVD SP angioplasty left leg PLAN DC IV meropenem Vancomycin Switch to PO levaquin 750 mg for 2 weeks Patieny will be scheduled for outpatient amputation of big toe FU with Dr Ledbetter and Dr Alexis Power MD [facility]
--- NOTE | 2017-03-11 13:53 | IPN ---
DATE: 03/10/2017 Leatha is anxious to go home. She has no nausea, vomiting, diarrhea, abdominal pain, fever, or chills. She is afebrile. Her last fever was on 03/06/2017 and was 100. LABORATORY DATA: White count is 7.6, hemoglobin 9.9, hematocrit 30, platelets 423. Sodium 140, potassium 4.7, chloride 105, bicarbonate 25, BUN 15, creatinine 0.76, glucose 156, calcium 8, magnesium 2.3, CRP down to 3.52. Wound cultures had mostly group B Streptococcus, Pseudomonas and Staphylococcus coagulase negative. Wounds, bilateral heel ulcers have good granulation tissue. No surrounding cellulitis, minimal drainage. The left wound measures about 5.5 x 3 cm. The right one is smaller at 4.5 x 2.4 cm. Left toe distal amputation with exposed bone, minimal swelling. No gangrenous changes. Right total has a small ulcer measuring 2 x 1 cm, clean with no drainage. IMPRESSION: Gangrene of the left big toe, status post amputation and maggot infestation with group B Streptococcus on cultures, bilateral heel ulcers with a previous history of osteomyelitis treated previously, currently have group B Streptococcus and Pseudomonas on both heels, but no evidence of clinical osteomyelitis. This MRI finding is residual from previous findings. PLAN: Discontinue IV antibiotics. Switch to oral Levaquin 750 mg daily for two weeks. The plan is to do an angioplasty on the left leg and probably the patient will need further amputation of that big toe at some later time. This will be followed up by Dr. Lebdetter and Dr. Espinoza.
--- NOTE | 2017-03-21 22:27 | ROOPDOC ---
[facility] Report Of Operation Report of Operation DATE OF PROCEDURE: 03/09/17 PREOPERATIVE DIAGNOSES: Bilateral nonhealing heel ulcers and left first toe gangrene and osteomyelitis. Left foot cellulitis. POSTOPERATIVE DIAGNOSES: Bilateral nonhealing heel ulcers and left first toe gangrene and osteomyelitis. Left foot cellulitis.. PROCEDURE: Aortogram. Iliofemoral angiogram. Selective left common femoral artery catheter placement with left lower extremity angiogram. Selective left popliteal artery catheter placement with left lower extremity angiogram. Left superficial femoral arterial angioplasty with 5 mm x 200 mm balloon. Left popliteal artery angioplasty with 5 mm x 200 mm balloon. Mynx closure of the right common femoral arteriotomy SURGEON: Dr. Mulugeta Espinoza MD [employer] MA[employer]GER: None INDICATION: Patient is a 61-year-old white female with nonhealing heel ulcers bilaterally. The patient also has left foot cellulitis and a left first toe gangrenous ulcer with exposed bone and maggots within the ulcer. Patient has undergone debridement of the left first toe wound and has been undergoing antibiotic therapy for the left foot cellulitis. Patient has nonpalpable pulses distally and will now undergo left lower extremity angiogram with possible angioplasty, stent and/or atherectomy. Risks benefits and alternative treatment options were discussed with the patient. Benefits include but are not limited to resolution of symptoms and healing of ulcers in the left foot. Alternative treatment options included but are not limited to no intervention. Risks included but are not limited to infection, bleeding, renal failure requiring hemodialysis, retroperitoneal hematoma, possible need for open surgical intervention, cerebrovascular accident, myocardial infarction, pulmonary embolus, DVT, contrast dye reaction, loss of limb, loss of life and poor outcome. All the patient's questions were answered. The patient understands these risks, benefits and alternative treatment options and accepts the risks associated with the procedure and the patient agrees to proceed with the procedure. ANESTHESIA: Local with sedation with 2 mg of Versed, 100 g of fentanyl and 10 cc of 2% lidocaine.. SEDATION TIME: 12:50 PM to 13:38 PM. The sedation and cardiopulmonary monitoring were performed by the RN in the room, under my direct supervision. The entire case was completed under my direction and I was present for the entire case. ESTIMATED BLOOD LOSS: Approximately 20 mL. IV FLUIDS: 125 HEPARIN: None PROTAMINE: None FLUORO TIME: 4.2 min. CONTRAST: 23 cc COMPLICATIONS: None. DRAINS: None SPECIMENS: None IMPLANTS: Right common femoral Mynx closure device PROCEDURE: The patient was taken to the angiography suite, placed supine on the angiography room table and prepped and draped in a standard surgical fashion. A procedural time out was performed by myself and the members of the team in the procedure room confirming the correct procedure, patient and laterality. The right common femoral artery was then cannulated with a micropuncture needle after anesthetizing the overlying skin with 2% lidocaine. The micropuncture wire was advanced through the micropuncture needle which was upsized to a micropuncture sheath. The Roque wire was then advanced through the micropuncture sheath which was upsized to a 5 [place]i sheath. The Omni flush catheter was advanced over the Roque wire placed in the aorta and in aortogram was performed. The catheter was pulled down to the bifurcation of the iliac arteries in an iliofemoral angiogram was performed. The catheter was then directed over the bifurcation of the iliac arteries using the Roque wire and placed selectively in the left common femoral artery and a left lower extremity angiogram was performed. This showed stenosis in the superficial femoral artery extending into the popliteal artery which was approximately 70-80% stenotic. There was also a stenosis noted in the below-knee popliteal artery which is approximately 85%.. A 6 [place]i destination sheath was then exchanged for the 5 [place]i sheath and the 6 [place]i destination sheath was brought up and over the bifurcation and positioned with the tip in the left common femoral artery. A angle Glidewire and catheter were then used to cross lesion in the superficial femoral and popliteal arteries. The catheter was placed into the popliteal artery and a selective angiogram performed to confirm intraluminal positioning which was noted after causing the stenosis in the superficial femoral and popliteal arteries. The superficial femoral artery and popliteal artery with an angioplasty with a 5 mm x 200 mm balloon. A completion angiogram was then performed showing resolution of the stenoses with good flow through the superficial femoral artery into the popliteal artery and distally into the tibial vessels. Catheters and wires were removed. The 6 [place]i destination sheath was exchanged for a short 6 [place]i sheath. The arteriotomy in the right common femoral artery was closed using a Mynx closure device with an additional 10 min. of adjunctive pressure applied for hemostasis, which was noted. Dressings were then applied. There were no complications. Dr. Espinoza was present for and directed the entire case. The patient was transferred to the holding area and subsequently discharged in stable condition. RADIOLOGIC SUPERVISION AND INTERPRETATION: The aortogram showed a suprarenal aortic to be widely patent with good filling of the intercostal vessels. The superior mesenteric and celiac arteries were widely patent. The renal arteries were patent bilaterally. The infrarenal aorta was patent with good filling of lumbar vessels. The common iliac external and internal iliac arteries were patent bilaterally with no significant stenosis or disease noted. The right common femoral artery was widely patent as well as the proximal superficial femoral and profunda femoris arteries on the right with no visualization below the puncture site on the right. The catheter was advanced up and over placed selectively in the left common femoral artery and angiogram performed showing the left common femoral and proximal superficial femoral and profunda femoris arteries to be widely patent. At the junction of the superficial femoral and popliteal arteries there was a stenosis of proximal leg 70-80%. There was also a stenosis noted in the below-knee popliteal artery which is approximately 85% A catheter and wire were used to cross the lesions and selectively placed in the popliteal artery and a left lower extremity angiogram was performed showing single vessel runoff via the anterior tibial artery into the foot. The posterior tibial and peroneal arteries were occluded shortly after their takeoff. The popliteal artery and superficial femoral artery with an angioplasty with a 5 mm x 200 mm balloon. A completion and 2 g showed resolution of the stenoses with preserved anterior tibial runoff into the foot. A Mynx closure device was used to close the arteriotomy in the right common femoral artery. Serg Espinoza MD Mar 21, 2017 22:27
== END 2017-03-10 13:40 | disposition home health service (06) | DRG 314 ==
LOC: M ED 23:40 → EDBD 23:40 → EDSEX 23:40 → M ED INP 03-06 04:27 → M MS5PR 03-06 05:45 → M MS4PR 03-07 20:35 → M MS5PR 03-08 15:15
PROVIDERS: ADMIT Hospitalist; ATTEND Internal Medicine
PROC: 0QBP0ZZ Excision of Left Metatarsal, Open Approach (ICD-10-PCS; 2017-03-07)
PROC: 0KBW0ZZ Excision of Left Foot Muscle, Open Approach (ICD-10-PCS; 2017-03-07)
PROC: 0JBR0ZZ Excision of Left Foot Subcutaneous Tissue and Fascia, Open Approach (ICD-10-PCS; 2017-03-07)
PROC: 0YBN0ZZ Excision of Left Foot, Open Approach (ICD-10-PCS; principal; 2017-03-07 12:26)
PROC: 02HV33Z Insertion of Infusion Device into Superior Vena Cava, Percutaneous Approach (ICD-10-PCS; 2017-03-08)
PROC: B31 Imaging, Upper Arteries, Fluoroscopy (ICD-10-PCS; 2017-03-09)
DX: M86.172 Other acute osteomyelitis, left ankle and foot (principal); E11.621 Type 2 diabetes mellitus with foot ulcer; I70.262 Atherosclerosis of native arteries of extremities with gangrene, left leg; J98.2 Interstitial emphysema; E11.52 Type 2 diabetes mellitus with diabetic peripheral angiopathy with gangrene; I10 Essential (primary) hypertension; B87.1 Wound myiasis; Z86.718 Personal history of other venous thrombosis and embolism; D50.9 Iron deficiency anemia, unspecified; Z79.899 Other long term (current) drug therapy; Z79.4 Long term (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 of insulin; Z88.5 Allergy status to narcotic agent; H26.9 Unspecified cataract; L03.032 Cellulitis of left toe; Z91.19 Patient's noncompliance with other medical treatment and regimen; B95.5 Unspecified streptococcus as the cause of diseases classified elsewhere; B95.7 Other staphylococcus as the cause of diseases classified elsewhere

== ENCOUNTER → 2017-03-22 | Outpatient (CLI) | payer OTHER ==
[~2017-03-22] MED LIST changes: +ALEV220C2 PO; +BRIM2OPD OS; +FERR325T16 PO; +GABA-279 PO; +INVO100T PO; +LATA5OPD OS; +LEVA750T7 PO; +LEVO750T13 PO; +NORC1TAB4 PO; +NOVOINJ3 SC
[2017-03-22 18:49] LABS: MEAN CORPUSCULAR HEMOGLOBIN 29.4 pg (27.0-33.0); MEAN CORPUSCULAR HGB CONC 32.2 g/dl (32.0-36.5); MEAN CORPUSCULAR VOLUME 91.3 fl (80.0-96.0); RED CELL DISTRIBUTION WIDTH 13.8 % (11.5-14.5); WHITE BLOOD COUNT 7.9 K/mm3 (4.0-10.0)
[2017-03-22 20:29] LABS: CALCIUM LEVEL 8.7 MG/DL (8.8-10.2); CREATININE FOR GFR 1.07 MG/DL (0.55-1.02); GLOMERULAR FILTRATION RATE 55.1 (>45); POTASSIUM SERUM 4.7 MEQ/L (3.5-5.1)
== END ==
LOC: M LAB 17:21
PROVIDERS: ATTEND Surgery Vascular Surgery
DX: I70.239 Atherosclerosis of native arteries of right leg with ulceration of unspecified site (principal)

== ENCOUNTER → 2017-04-04 | Outpatient (CLI) | payer OTHER ==
[~2017-04-04] MED LIST changes: +HEPARIN 1,000 UNITS/ML 10ML VIAL (FOR RADIOLOGY& DIALYSIS ONLY) As Ordered ONE; +ISOVUE-300 61% 50ML VIAL (Q9967) As Ordered ONE; +MIDAZOLAM INJ 2 MG/2 ML VIAL (J2250) As Ordered ONE; +PROTAMINE SULF INJ 50 MG/5 ML VIAL (J2720) As Ordered ONE; +fentaNYL 100 MCG/2 ML INJECTION (J3010) As Ordered ONE
--- NOTE | 2017-04-19 06:13 | REPKIM ---
DATE OF PROCEDURE: 04/04/2017 PREPROCEDURE DIAGNOSES: Nonhealing right heel ulcer, nonhealing right toe ulcers, superficial femoral popliteal arterial occlusive disease, atherosclerotic arterial occlusive disease. POSTPROCEDURE DIAGNOSES: Nonhealing right heel ulcer, nonhealing right toe ulcers, superficial femoral, popliteal arterial occlusive disease, atherosclerotic arterial occlusive disease. PROCEDURE: Iliofemoral angiogram, selective right common femoral artery catheter placement with right lower extremity angiogram, selective right superficial femoral artery catheter placement with right lower extremity angiogram, selective right popliteal artery catheter placement with right lower extremity angiogram, selective right anterior tibial artery catheter placement with right lower extremity angiogram, right popliteal artery angioplasty with 5 x 200 mm balloon, right anterior tibial artery angioplasty with 5 mm x 200 mm balloon, Mynx closure of the left common femoral arteriotomy. SURGEON: Dr. Serg Espinoza. TEST LEAD APPLICATION TESTING: Melanie Morejon. ANESTHESIA: Local with sedation with 1 mg of Versed, 50 mcg of Fentanyl and 10 mL of 2% lidocaine. ESTIMATED BLOOD LOSS: SEDATION TIME: From 9:25 a.m. to 10:30 a.m. with the sedation and cardiopulmonary monitoring performed by the RN in the room under my direct supervision and direction. I was present for and directed the entire case. FLUORO TIME: 5.1 minutes. CONTRAST: 20 mL. HEPARIN: 6000 units. PROTAMINE: 50 mg. COMPLICATIONS: None. DRAINS: None. SPECIMENS None. IMPLANTS: Left common femoral arteriotomy closure with a Mynx closure device. INDICATION: Patient is a 61-year-old female with bilateral lower extremity heel ulcers and foot ulcers which have been nonhealing. The patient underwent evaluation and was noted to have superficial femoral and arterial popliteal arterial atherosclerotic occlusive disease bilaterally. Patient underwent a left lower extremity angiogram with angioplasty and improved slow to the left foot with better wound healing. Patient will now undergo a right lower extremity angiogram with angioplasty and/or stent. Risks, benefits and alternative treatment options were discussed with the patient. Alternative treatment options included but were not limited to no intervention. Benefits included but were not limited to improved blood flow with healing of wounds and prevention of limb loss. Risks included but were not limited to infection, bleeding, renal failure requiring hemodialysis, possible need for open surgical intervention, retroperitoneal hematoma, cerebrovascular accident, myocardial infarction, pulmonary embolus, deep venous thrombosis, loss of limb, loss of life, and poor outcome. Patient's questions were answered. Patient voices understanding of these risks, benefits and alternative treatment options. Patient accepts these risks associated with the procedure and consents to proceed with a right lower extremity angiogram with possible angioplasty and/or stent. PROCEDURE: Patient was taken to the angiography suite and placed supine on the angiography room table and then prepped and draped in a standard surgical fashion. The left common femoral artery was cannulated with a micropuncture needle after anesthetizing the overlying skin with 1% lidocaine. The micropuncture wire was advanced through the micropuncture needle which was upsized to a micropuncture sheath. A [place] wire was advanced through the micropuncture sheath which was upsized to a #5-Stateless sheath. An Omniflush catheter was advanced over the [place] wire and placed in the bifurcation of the iliac arteries and an iliofemoral angiogram was performed. The catheter was directed over the bifurcation of the iliac arteries and placed in the right common femoral artery and a right lower extremity angiogram was performed. This showed an approximate 20-30% stenosis in the superficial femoral artery shortly after its origin. The remainder of the superficial femoral artery was patent with some luminal irregularities which were mild. The catheter was advanced into the superficial femoral artery and a angiogram was performed showing the above knee popliteal artery to be patent for a short distance where there was a stenosis in the above knee popliteal artery of approximately 60%. Catheter was advanced through the stenosis and into the popliteal artery and a selective popliteal artery angiogram was performed showing long segment stenosis in the popliteal artery extending into the anterior tibial artery. This was approximately 60-70% stenosis. There was no visualization of the peroneal or posterior tibial arteries in the upper calf. The catheter was advanced through the stenosis in the popliteal and anterior tibial artery and a selected anterior tibial artery angiogram was performed confirming intraluminal positioning after which the anterior tibial artery was angioplastied with a 5 x 200 mm balloon. The popliteal artery was angioplastied with a 5 x 200 mm balloon. A completion angiogram was performed showing resolution of the stenoses with excellent flow through the popliteal artery into the anterior tibial artery and distally. Catheters and wires were removed. The sheath was removed and a Mynx closure device used to close the arteriotomy in the left common femoral artery where an additional 10 minutes of adjunctive pressure applied to hemostasis. Dressings were then applied. Patient tolerated the procedure well. All instrument, sponge and needle counts were correct at the end of the case. There were no complications. Dr. Espinoza was present for and directed the entire case. Patient was transferred to the holding area and subsequently to the floor in stable condition. RADIOLOGIC SUPERVISION INTERPRETATION: The initial iliofemoral angiogram showed the iliac arteries to be patent bilaterally. The common iliac, external and internal iliac arteries were patent bilaterally. The left common femoral artery and proximal superficial femoral and profunda femoris arteries were also noted to be patent. There was no visualization of the left lower extremity below the puncture site. The right common femoral artery was patent as well as the right superficial femoral and profunda femoris artery with some minor narrowing in the proximal right superficial femoral artery. Along the length of the right superficial femoral artery, there was some mild luminal irregularities extending into the popliteal artery. The popliteal artery in the above knee region shows stenosis as well as below knee popliteal artery arterial stenosis extending into the anterior tibial. The anterior tibial and popliteal arteries were angioplastied with a 5 mm x 200 mm balloon and with a completion angiogram showing resolution of the stenosis. The runoff into the foot was via the anterior tibial artery which supplied collaterals to the distally reconstituted peroneal artery and the posterior tibial artery which was small but open into the heel and foot region. A Mynx closure device was used to close the arteriotomy in the left common femoral artery.
== END | disposition home or self-care (01) ==
LOC: M IRPRO 07:39
PROVIDERS: ATTEND Surgery Vascular Surgery
DX: I70.234 Atherosclerosis of native arteries of right leg with ulceration of heel and midfoot (principal); L97.419 Non-pressure chronic ulcer of right heel and midfoot with unspecified severity; I70.235 Atherosclerosis of native arteries of right leg with ulceration of other part of foot; L97.519 Non-pressure chronic ulcer of other part of right foot with unspecified severity
CPT/HCPCS: 37224; 37228; C1725; C1760; C1769; C1887; C1894; J2250; J2720; J3010; Q9967

== ENCOUNTER → 2017-05-24 | Outpatient (CLI) | payer OTHER ==
[~2017-05-24] MED LIST changes: -HEPARIN 1,000 UNITS/ML 10ML VIAL (FOR RADIOLOGY& DIALYSIS ONLY) As Ordered ONE; -ISOVUE-300 61% 50ML VIAL (Q9967) As Ordered ONE; -MIDAZOLAM INJ 2 MG/2 ML VIAL (J2250) As Ordered ONE; -PROTAMINE SULF INJ 50 MG/5 ML VIAL (J2720) As Ordered ONE; -fentaNYL 100 MCG/2 ML INJECTION (J3010) As Ordered ONE
--- NOTE | 2017-05-24 16:58 | REP ---
Bilateral lower extremity duplex arterial ultrasound: History: Peripheral vascular disease. Findings: Systolic hypertension was observed with brachial pressures on the right at 200 systolic and on the left at 180 systolic. The referring physician's office was notified. Noncompressible lower extremity arteries precluded ankle brachial index calculation. We were not able to visualize common iliac or external iliac arteries on either side due to bowel gas. Biphasic wave forms noted in the thigh arteries bilaterally. Monophasic waveforms are noted below the knee and in the calf vessels bilaterally. We were not able to visualize the proximal posterior tibial arteries in either calf. Velocity chart right lower extremity: Right HORTICULTURAL SPECIALTY GROWER 90 cm/S Right profunda 102 Proximal SFA 62 Mid SFA 107 Distal SFA 59 Popliteal 122 Tibioperoneal trunk 59 Distal HORSE BREAKER 10 Distal anterior tibial artery 98 peroneal 56. Velocity chart left lower extremity: HORTICULTURAL SPECIALTY GROWER 93 cm/S Profunda 144 Proximal SFA 79 Mid SFA 66 Distal SFA 71 Popliteal 74 Proximal anterior tibial artery 43 Tibioperoneal trunk 116 Distal HORSE BREAKER 13 Distal NESTOR 112 Peroneal 123. Impression: Abnormal phasicity bilaterally particularly in the calf, monophasic flow. Noncompressible distal arteries. Multifocal atherosclerosis suggested. Low flow velocities in the distal posterior tibial arteries bilaterally suggestive of a reconstituted flow. Neither proximal tibial artery could be visualized. Signed by Maurice Jonas MD 05/24/2017 05:08 P
== END ==
LOC: M RAD 08:24
PROVIDERS: ATTEND Surgery Vascular Surgery
DX: I73.9 Peripheral vascular disease, unspecified (principal)

== ENCOUNTER → 2017-06-29 | Outpatient (CLI) | payer OTHER ==
--- NOTE | 2017-06-29 11:50 | REP ---
CAROTID ULTRASOUND: Real-time ultrasound evaluation and duplex Doppler interrogation of the extracranial carotid vasculature is performed. There is mild plaquing and narrowing in both carotid bulbs extending into the internal and external carotid arteries. Luminal narrowing is less than 50%. There is no evidence of hemodynamically significant stenosis of either internal carotid artery. Normal flow velocities are seen. The vertebral arteries demonstrate normal direction of flow. RIGHT LEFT Peak systolic velocity ICA 72.9 with cm/s 86.6 cm/s End diastolic velocity ICA 32.4 cm/s 33.3 cm/s Peak systolic velocity CCA 82.3 cm/s 98.5 cm/s Peak systolic velocity ECA 93.7 cm/s 94.9 cm/s ICA/CCA ratio 0.89 0.88 IMPRESSION: Bilateral luminal narrowing of the internal carotid arteries less than 50%. No evidence of hemodynamically significant stenosis. Signed by George Spaulding MD 06/29/2017 11:41 A
== END ==
LOC: M RAD 10:28
PROVIDERS: ATTEND Physician Assistant Medical
DX: I65.23 Occlusion and stenosis of bilateral carotid arteries (principal)

== ENCOUNTER → 2017-07-14 | Outpatient (REF) | payer OTHER | LOC: M LAB REF 18:27 | PROVIDERS: ATTEND Physician Assistant Surgical | DX: M86.071 Acute hematogenous osteomyelitis, right ankle and foot (principal); E11.621 Type 2 diabetes mellitus with foot ulcer; L97.414 Non-pressure chronic ulcer of right heel and midfoot with necrosis of bone ==

== ENCOUNTER → 2017-07-21 | Outpatient (CLI) | payer OTHER ==
[~2017-07-21] MED LIST changes: -BRIM2OPD OS; +BRIM2OPD OU; +DIAM500C PO; +DORZ2SOL5 OU; +KETO5OPD OD; -LATA5OPD OS; +LATA5OPD OU; +PRED1SUS OD; +PREDOPD; +SENN-23 PO; +TOBR0.3S OD; +[UNRECOGNIZED DRUG - CODE] OD
[2017-07-21 12:37] LABS: MEAN CORPUSCULAR HEMOGLOBIN 29.5 pg (27.0-33.0); MEAN CORPUSCULAR VOLUME 89.2 fl (80.0-96.0); PLATELET COUNT, AUTOMATED 346 10^3/uL (150-450); RED CELL DISTRIBUTION WIDTH 14.1 % (11.5-14.5); WHITE BLOOD COUNT 8.9 10^3/uL (4.0-10.0)
[2017-07-21 12:57] LABS: ERYTHROCYTE SEDIMENTATION RATE 57 mm/hr (0-30)
[2017-07-21 13:22] LABS: ALBUMIN 3.3 GM/DL (3.2-5.2); ALBUMIN/GLOBULIN RATIO 0.69 (1.00-1.93); ALKALINE PHOSPHATASE 154 U/L (45-117); ALT/SGPT 21 U/L (12-78); ANION GAP 10 MEQ/L (8-16); AST/SGOT 12 U/L (7-37); BILIRUBIN,TOTAL 0.5 MG/DL (0.2-1.0); BLOOD UREA NITROGEN 21 MG/DL (7-18); CALCIUM LEVEL 8.6 MG/DL (8.8-10.2); CARBON DIOXIDE LEVEL 15 MEQ/L (21-32); CHLORIDE LEVEL 115 MEQ/L (98-107); GLOMERULAR FILTRATION RATE > 60.0 (>45); GLUCOSE, FASTING 168 MG/DL (80-110); POTASSIUM SERUM 4.1 MEQ/L (3.5-5.1); SODIUM LEVEL 140 MEQ/L (136-145); TOTAL PROTEIN 8.1 GM/DL (6.4-8.2)
== END ==
LOC: M LAB 11:48
PROVIDERS: ATTEND Surgery
DX: E11.621 Type 2 diabetes mellitus with foot ulcer (principal); L97.509 Non-pressure chronic ulcer of other part of unspecified foot with unspecified severity

== ENCOUNTER 2017-07-25 06:05 | Day surgery (SDC) | payer OTHER ==
[~2017-07-25] VITALS: Ht 162.6 cm; Wt 80.3 kg
[~2017-07-25 06:05] MED LIST changes: +ACETAMINOPHEN 325 MG TAB PO PRN; -DIAM500C PO; -DORZ2SOL5 OU; -KETO5OPD OD; -PRED1SUS OD; -PREDOPD; -SENN-23 PO; +SLF 3 ML SYR IV PRN; +SLF 3 ML SYR IV SCH; -TOBR0.3S OD; -[UNRECOGNIZED DRUG - CODE] OD
[2017-07-25] MEDS ORDERED: BETAMETHASONE SOLUSPAN 6MG/ML INJ 5ML (J0702) As Ordered ONE (06:32)
[2017-07-25] MEDS ORDERED: TOBRAMYCIN INJ 80 MG/2 ML VIAL (J3260) As Ordered ONE (06:32)
[2017-07-25] MEDS ORDERED: TOBRADEX OPHTH OINT 3.5 GM As Ordered ONE (06:33)
[2017-07-25] MEDS ORDERED: LIDOCAINE 2% W/EPIN INJ 20ML **PRES FREE As Ordered ONE (06:33)
[2017-07-25] MEDS ORDERED: POVIDONE-IODINE 5% OPHTH PREP SOL 30ML As Ordered ONE (06:55)
[2017-07-25] MEDS ORDERED: OFLOXACIN 0.3 % (OCUFLOX) OPTH SOL 5ML OD ONE (07:00)
[2017-07-25] MEDS ORDERED: LIDOCAINE 3.5 % 1ML OPHTH TOPICAL GEL OU ONE (07:00)
[2017-07-25] MEDS ORDERED: PROPARACAINE 0.5% OPHTH SOL 15ML OD PRN (07:01)
[2017-07-25] MEDS ORDERED: CEFUROXIME 1MG/0.1ML INTRACAMERAL INJ As Ordered ONE (07:21)
[2017-07-25] MEDS ORDERED: mitoMYcin 0.2 MG/VIAL KIT FOR OPHTHALMIC USE (J7315 PER 0.2MG) As Ordered ONE (07:39)
[2017-07-25] MEDS ORDERED: fentaNYL 100 MCG/2 ML INJECTION (J3010) As Ordered ONE (07:46)
[2017-07-25] MEDS ORDERED: MIDAZOLAM INJ 2 MG/2 ML VIAL (J2250) As Ordered ONE (07:46)
[2017-07-25] MEDS ORDERED: HEALON DUET (HEALON 10MG/ML 0.55ML & HEALON ENDOCOAT 30MG/ML 0.85ML) As Ordered ONE (08:10)
[2017-07-25] MEDS ORDERED: ONDANSETRON 4MG/2ML VIAL (J2405) As Ordered ONE (08:38)
--- NOTE | 2017-07-25 08:53 | RO ---
DATE OF PROCEDURE: 07/25/2017 POSTOPERATIVE DIAGNOSIS: Advanced glaucoma right eye. POSTOPERATIVE DIAGNOSIS: Advanced glaucoma right eye. PROCEDURE: Placement of a Ahmed valve right eye. SURGEON: Dr. Irene Woods FOAM CUTTING SUPERVISOR: None. ANESTHESIA: COMPLICATIONS: None. PROCEDURE IN DETAIL: Patient was brought to the operating room, laid in supine position. The eye was prepped and draped in a sterile fashion for ophthalmic surgery and a lid speculum was placed. A #7-0 Vicryl suture was then used to rotate the eye inferiorly and nasally. Conjunctival peritomy was done for 3-4 o'clock hours in supratemporal area and the subconjunctival dissection was carried out about 14 mm behind the limbus. Hemostasis was obtained as necessary. The Ahmed valve was primed and then sutured in place 9 mm behind the limbus with two #10-0 nylon sutures. A scleral tunnel was then created and the eye was entered into the anterior chamber with the help of a super sharp blade. The length of the Ahmed valve was then cut to size and it was introduced through the scleral tunnel into the anterior chamber. It was also secured in place with #10-0 nylon suture. Conjunctiva was closed with #8-0 Vicryl and #10-0 nylon sutures. No leaks were noted. Chamber was soft but deep. A small amount of EndoCoat was injected. Lid speculum was removed. Maxitrol ointment applied, TobraDex ointment applied and the eye was patched. Patient returned to the recovery room in stable condition.
[2017-07-25] MEDS ORDERED: TRIMETHOBENZAMIDE 300 MG CAP PO PRN (09:00)
[2017-07-25] MEDS ORDERED: KETOROLAC 0.5% OPHTH SOLN OD ONE (09:00)
[2017-07-25] MEDS ORDERED: ONDANSETRON 4MG/2ML VIAL (J2405) IV PRN (09:00)
[2017-07-25 09:30] VITALS: BP 123/64
[2017-07-26] MEDS ORDERED: [UNRECOGNIZED DRUG - CODE] OD (18:46)
[2017-07-26] MEDS ORDERED: TOBR0.3S OD (18:46)
[2017-07-26] MEDS ORDERED: PREDOPD (18:46)
[2017-07-26] MEDS ORDERED: PRED1SUS OD (18:46)
[2017-07-26] MEDS ORDERED: SENN-23 PO (18:46)
[2017-07-26] MEDS ORDERED: NORC1TAB4 PO (22:59)
[2017-07-26] MEDS ORDERED: GABA-282 PO (22:59)
[2017-07-26] MEDS ORDERED: PROT1TAB2 PO (22:59)
[2017-07-26] MEDS ORDERED: KETO5OPD OD (22:59)
[2017-07-26] MEDS ORDERED: DIAM500C PO (22:59)
[2017-07-26] MEDS ORDERED: DORZ2SOL5 OU (22:59)
[2017-07-26] MEDS ORDERED: METO10TA2 PO (22:59)
[2017-07-30] MEDS ORDERED: LINE60TAB PO (14:49)
== END 2017-07-25 09:32 | disposition home or self-care (01) ==
LOC: M SDC 06:05
PROVIDERS: ATTEND Ophthalmology
DX: H40.9 Unspecified glaucoma (principal); K21.9 Gastro-esophageal reflux disease without esophagitis; E10.621 Type 1 diabetes mellitus with foot ulcer; E10.40 Type 1 diabetes mellitus with diabetic neuropathy, unspecified; L97.529 Non-pressure chronic ulcer of other part of left foot with unspecified severity; L97.519 Non-pressure chronic ulcer of other part of right foot with unspecified severity; Z86.19 Personal history of other infectious and parasitic diseases; Z86.73 Personal history of transient ischemic attack (TIA), and cerebral infarction without residual deficits; Z86.711 Personal history of pulmonary embolism; Z88.5 Allergy status to narcotic agent; Z88.8 Allergy status to other drugs, medicaments and biological substances; Z79.899 Other long term (current) drug therapy; Z79.01 Long term (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 of anticoagulants

== ENCOUNTER 2017-07-26 18:30 | Inpatient (IN) | payer OTHER ==
[2017-07-26] MEDS: GASTROGRAFIN SOLUTION 30ML PO (19:15)
[2017-07-26] MEDS: NS 1,000 ML IV (19:20)
[2017-07-26] MEDS: ONDANSETRON 4MG/2ML VIAL (J2405) IV ×2 (19:20→20:45)
[2017-07-26 19:24] LABS: BEDSIDE GLUCOSE 308 MG/DL (80-115)
[2017-07-26 19:27] LABS: BASO % 0.2 % (0.0-1.0); HEMATOCRIT 31.5 % (36.0-47.0); HEMOGLOBIN 10.6 g/dl (12.0-16.0); IMMATURE GRANULOCYTE # 0.1 10^3/uL (0-0); IMMATURE GRANULOCYTE % 0.5 % (0-0); LYMPH # 1.2 10^3/uL (1.5-4.5); LYMPH % 5.9 % (24.0-44.0); MEAN CORPUSCULAR HEMOGLOBIN 29.7 pg (27.0-33.0); MEAN CORPUSCULAR HGB CONC 33.7 g/dl (32.0-36.5); MEAN CORPUSCULAR VOLUME 88.2 fl (80.0-96.0); MONO % 5.2 % (0.0-5.0); NEUTROPHILS # 17.3 10^3/uL (1.8-7.7); NEUTROPHILS % 88.2 % (36.0-66.0); PLATELET COUNT, AUTOMATED 480 10^3/uL (150-450); RED BLOOD COUNT 3.57 10^6/uL (4.00-5.40); WHITE BLOOD COUNT 19.7 10^3/uL (4.0-10.0)
[2017-07-26] MEDS: GASTROGRAFIN SOLUTION 30ML (Q9963) PO (19:45)
[2017-07-26 19:52] LABS: ALBUMIN/GLOBULIN RATIO 0.64 (1.00-1.93); ALKALINE PHOSPHATASE 139 U/L (45-117); ALT/SGPT 24 U/L (12-78); ANION GAP 10 MEQ/L (8-16); AST/SGOT 52 U/L (7-37); BILIRUBIN,DIRECT 0.2 MG/DL (0.0-0.2); BILIRUBIN,TOTAL 0.6 MG/DL (0.2-1.0); BLOOD UREA NITROGEN 34 MG/DL (7-18); CALCIUM LEVEL 8.7 MG/DL (8.8-10.2); CARBON DIOXIDE LEVEL 15 MEQ/L (21-32); CHLORIDE LEVEL 114 MEQ/L (98-107); CREATININE FOR GFR 1.14 MG/DL (0.55-1.02); GLOMERULAR FILTRATION RATE 51.2 (>45); GLUCOSE, FASTING 317 MG/DL (80-110); LIPASE 54 U/L (73-393); POTASSIUM SERUM 3.6 MEQ/L (3.5-5.1); SODIUM LEVEL 139 MEQ/L (136-145); TOTAL PROTEIN 7.7 GM/DL (6.4-8.2)
[2017-07-26] MEDS ORDERED: ISOVUE-370 76% 100ML VIAL (Q9967) As Ordered (20:37)
[2017-07-26] MEDS: PANTOPRAZOLE 40MG INJ (PROTONIX) (C9113) IV (22:15)
[2017-07-26] MEDS: PIPERACILLIN/TAZOBACTAM SOD 3.375 GM in APPROPRIATE DILUENT 1 EA IV (23:05)
[2017-07-26 23:32] LABS: INR 1.77; PROTHROMBIN TIME 21.1 SECONDS (12.4-14.5)
[2017-07-26 23:33] LABS: PARTIAL THROMBOPLASTIN TIME 34.8 SECONDS (26.8-37.9)
[2017-07-27] MEDS: methylPREDNISolone INJ 40 MG/1 ML VIAL (J2920) IV ×3 (00:20→23:32)
[2017-07-27] MEDS: VANCOMYCIN HCL 1,000 MG, VIAL MATE ADAPTER 1 EACH in D5W 250 ML IV (00:21)
[2017-07-27] MEDS: NS 1,000 ML IV ×3 (00:21→09:46)
[2017-07-27] MEDS ORDERED: MORPHINE 2 MG/ML 1ML SYRINGE IV (00:30)
[2017-07-27] MEDS ORDERED: GLUCAGON FOR INJ 1 MG VIAL (J1610) SC (00:30)
[2017-07-27] MEDS ORDERED: GLUCOSE 4 GM CHEW TABLET PO (00:30)
[2017-07-27] MEDS ORDERED: DEXTROSE 50% 50 ML SYRINGE IV (00:30)
[2017-07-27] MEDS ORDERED: HEPARIN SOD (PORCINE) 5000 UNITS/ML VIAL SC (00:30)
[2017-07-27] MEDS: PROMETHAZINE INJ 25 MG/ML VIAL (J2550) IV (01:22)
[2017-07-27] MEDS: PIPERACILLIN/TAZOBACTAM SOD 3.375 GM in APPROPRIATE DILUENT 1 EA IV ×4 (06:27→23:32)
[2017-07-27 06:59] LABS: HEMOGLOBIN 10.2 g/dl (12.0-16.0); MEAN CORPUSCULAR HEMOGLOBIN 30.1 pg (27.0-33.0); MEAN CORPUSCULAR VOLUME 88.5 fl (80.0-96.0); PLATELET COUNT, AUTOMATED 449 10^3/uL (150-450); RED BLOOD COUNT 3.39 10^6/uL (4.00-5.40); RED CELL DISTRIBUTION WIDTH 15.3 % (11.5-14.5); WHITE BLOOD COUNT 20.5 10^3/uL (4.0-10.0)
[2017-07-27 07:01] LABS: ADD MANUAL DIFFER YES; DIFF SLIDE NUMBER 91; LEFT SHIFT POS FLAG; POSITIVE MORPH POS FLAG
[2017-07-27 07:14] LABS: ANION GAP 12 MEQ/L (8-16); BLOOD UREA NITROGEN 29 MG/DL (7-18); CALCIUM LEVEL 8.3 MG/DL (8.8-10.2); CARBON DIOXIDE LEVEL 15 MEQ/L (21-32); CHLORIDE LEVEL 114 MEQ/L (98-107); CREATININE FOR GFR 0.96 MG/DL (0.55-1.02); GLOMERULAR FILTRATION RATE > 60.0 (>45); GLUCOSE, FASTING 316 MG/DL (80-110); POTASSIUM SERUM 3.2 MEQ/L (3.5-5.1); SODIUM LEVEL 141 MEQ/L (136-145)
[2017-07-27 07:52] LABS: ANISOCYTOSIS 1+; BANDS 11 % (< 11); LYMPHOCYTES 2 % (16-52); MICROCYTOSIS 1+; MONOCYTES 2 % (0-8); NEUTROPHILS 85 % (35-75); PLATELET ESTIMATE NORMAL (NORMAL)
[2017-07-27] MEDS: KETOROLAC 0.5% OPHTH SOLN OD (09:00)
[2017-07-27] MEDS: ONDANSETRON 4MG/2ML VIAL (J2405) IV (09:45)
[2017-07-27] MEDS: HumaLOG INSULIN (NovoLOG) PER UNIT SC ×4 (09:46→21:00)
[2017-07-27] MEDS: PANTOPRAZOLE 40MG INJ (PROTONIX) (C9113) IV (09:46)
[2017-07-27] MEDS: GABAPENTIN 300 MG CAP PO ×2 (09:47→22:14)
[2017-07-27] MEDS: NORCO, ANEXSIA 5/325MG TABLET (HYDROcodone/ACETAMINOPHEN) PO (09:47)
[2017-07-27] MEDS: COSOPT OCUMETER PLUS 10ML (DORZOLAMIDE/TIMOLOL) OU (09:48)
[2017-07-27] MEDS: APIXABAN 5 MG TAB (ELIQUIS) PO ×2 (09:48→22:15)
[2017-07-27] MEDS: AcetaZOLAMIDE 500 MG ER CAP PO (09:48)
[2017-07-27] MEDS: CYCLOPENTOLATE 1% OPHTH SOLN 2 ML BTL OD ×2 (09:48→21:20)
[2017-07-27] MEDS: BRIMONIDINE 0.15% OPHTH SOLN 5 ML OU (09:48)
[2017-07-27 11:41] LABS: BEDSIDE GLUCOSE 305 MG/DL (80-115)
[2017-07-27] MEDS: TUBERCULIN PPD 5 UNITS/0.1 ML ID (12:00)
[2017-07-27 15:03] LABS: MAGNESIUM LEVEL 2.1 MG/DL (1.8-2.4)
[2017-07-27 15:24] LABS: ABG BASE EXCESS -12.2 (-2.0-2.0); ABG HCO3 12.3 MEQ/L (22.0-26.0); ABG O2 SATURATION 93.4 % (95.0-99.0); ABG PARTIAL PRESSURE O2 71.2 mmHg (75.0-100.0); ABG STANDARD HCO3 14.8 MEQ/L (22.0-26.0); ABG pH (ARTERIAL) 7.326 UNITS (7.350-7.450)
[2017-07-27 16:48] LABS: BEDSIDE GLUCOSE 173 MG/DL (80-115)
[2017-07-27] MEDS: POTASSIUM CHLORIDE 10 MEQ SR TABLET PO (17:41)
[2017-07-27] MEDS: prednisoLONE ACET 1% OPHTH SUSP 5ML OD ×2 (17:47→21:20)
[2017-07-27] MEDS: BRIMONIDINE 0.15% OPHTH SOLN 5 ML OS ×2 (17:48→21:20)
[2017-07-27] MEDS: TOBRADEX OPHTH SUSP 2.5 ML OD ×2 (17:54→23:33)
[2017-07-27 20:13] LABS: BEDSIDE GLUCOSE 175 MG/DL (80-115)
[2017-07-27] MEDS: COSOPT OCUMETER PLUS 10ML (DORZOLAMIDE/TIMOLOL) OS (21:00)
[2017-07-27] MEDS ORDERED: LATANOPROST 0.005% OPHTH SOLN 2.5 ML OU (21:00)
[2017-07-27] MEDS: LATANOPROST 0.005% OPHTH SOLN 2.5 ML OS (23:33)
[2017-07-28] MEDS: TOBRADEX OPHTH SUSP 2.5 ML OD ×4 (05:36→23:19)
[2017-07-28] MEDS: PIPERACILLIN/TAZOBACTAM SOD 3.375 GM in APPROPRIATE DILUENT 1 EA IV ×5 (05:36→23:17)
[2017-07-28 07:02] LABS: ALBUMIN 2.3 GM/DL (3.2-5.2); ALKALINE PHOSPHATASE 130 U/L (45-117); ALT/SGPT 28 U/L (12-78); ANION GAP 14 MEQ/L (8-16); AST/SGOT 41 U/L (7-37); BILIRUBIN,TOTAL 0.8 MG/DL (0.2-1.0); BLOOD UREA NITROGEN 32 MG/DL (7-18); CALCIUM LEVEL 8.7 MG/DL (8.8-10.2); CARBON DIOXIDE LEVEL 11 MEQ/L (21-32); CHLORIDE LEVEL 120 MEQ/L (98-107); CREATININE FOR GFR 1.04 MG/DL (0.55-1.02); GLUCOSE, FASTING 253 MG/DL (80-110); MAGNESIUM LEVEL 2.3 MG/DL (1.8-2.4); POTASSIUM SERUM 3.8 MEQ/L (3.5-5.1); SODIUM LEVEL 145 MEQ/L (136-145); TOTAL PROTEIN 6.9 GM/DL (6.4-8.2)
[2017-07-28] MEDS: COSOPT OCUMETER PLUS 10ML (DORZOLAMIDE/TIMOLOL) OS ×2 (09:00→23:18)
[2017-07-28] MEDS: HumaLOG INSULIN (NovoLOG) PER UNIT SC ×3 (10:27→19:12)
[2017-07-28] MEDS ORDERED: DEXTROSE 50% 50 ML SYRINGE IV (10:30)
[2017-07-28] MEDS ORDERED: GLUCAGON FOR INJ 1 MG VIAL (J1610) SC (10:30)
[2017-07-28] MEDS ORDERED: GLUCOSE 4 GM CHEW TABLET PO (10:30)
[2017-07-28] MEDS: prednisoLONE ACET 1% OPHTH SUSP 5ML OD ×3 (10:37→23:19)
[2017-07-28] MEDS: APIXABAN 5 MG TAB (ELIQUIS) PO ×2 (10:37→23:18)
[2017-07-28] MEDS: GABAPENTIN 300 MG CAP PO ×2 (10:37→23:17)
[2017-07-28] MEDS: PANTOPRAZOLE 40MG INJ (PROTONIX) (C9113) IV (10:37)
[2017-07-28] MEDS: BRIMONIDINE 0.15% OPHTH SOLN 5 ML OS ×3 (10:38→23:18)
[2017-07-28] MEDS: CYCLOPENTOLATE 1% OPHTH SOLN 2 ML BTL OD ×2 (10:38→21:00)
[2017-07-28 10:42] LABS: HEMATOCRIT 32.8 % (36.0-47.0); HEMOGLOBIN 10.7 g/dl (12.0-16.0); MEAN CORPUSCULAR HEMOGLOBIN 30.1 pg (27.0-33.0); MEAN CORPUSCULAR HGB CONC 32.6 g/dl (32.0-36.5); MEAN CORPUSCULAR VOLUME 92.4 fl (80.0-96.0); PLATELET COUNT, AUTOMATED 523 10^3/uL (150-450); RED BLOOD COUNT 3.55 10^6/uL (4.00-5.40); WHITE BLOOD COUNT 22.7 10^3/uL (4.0-10.0)
[2017-07-28 11:49] LABS: BEDSIDE GLUCOSE 245 MG/DL (80-115)
[2017-07-28] MEDS ORDERED: VANCOMYCIN HCL 1,000 MG, VIAL MATE ADAPTER 1 EACH in D5W 250 ML IV ×2 (14:00→15:00)
[2017-07-28] MEDS: methylPREDNISolone INJ 40 MG/1 ML VIAL (J2920) IV ×2 (17:18→23:17)
[2017-07-28] MEDS: SODIUM CHLORIDE 0.9% INJ 10 ML SYR IV (17:18)
[2017-07-28] MEDS: VANCOMYCIN HCL 1,000 MG, VIAL MATE ADAPTER 1 EACH in D5W 250 ML IV ×2 (17:20→19:12)
[2017-07-28 17:57] LABS: BEDSIDE GLUCOSE 223 MG/DL (80-115)
[2017-07-28] MEDS: LATANOPROST 0.005% OPHTH SOLN 2.5 ML OS (23:18)
[2017-07-28] MEDS: NORCO, ANEXSIA 5/325MG TABLET (HYDROcodone/ACETAMINOPHEN) PO (23:18)
[2017-07-29 02:09] LABS: BEDSIDE GLUCOSE 271 MG/DL (80-115)
[2017-07-29] MEDS: SODIUM CHLORIDE 0.9% INJ 10 ML SYR IV ×2 (05:14→17:27)
[2017-07-29] MEDS: PIPERACILLIN/TAZOBACTAM SOD 3.375 GM in APPROPRIATE DILUENT 1 EA IV ×4 (05:14→23:31)
[2017-07-29 06:31] LABS: ALBUMIN 2.1 GM/DL (3.2-5.2); ALBUMIN/GLOBULIN RATIO 0.55 (1.00-1.93); ALKALINE PHOSPHATASE 114 U/L (45-117); ALT/SGPT 23 U/L (12-78); ANION GAP 11 MEQ/L (8-16); AST/SGOT 21 U/L (7-37); BILIRUBIN,TOTAL 0.9 MG/DL (0.2-1.0); BLOOD UREA NITROGEN 43 MG/DL (7-18); CALCIUM LEVEL 8.5 MG/DL (8.8-10.2); CARBON DIOXIDE LEVEL 15 MEQ/L (21-32); CHLORIDE LEVEL 119 MEQ/L (98-107); GLOMERULAR FILTRATION RATE > 60.0 (>45); GLUCOSE, FASTING 310 MG/DL (80-110); MAGNESIUM LEVEL 2.4 MG/DL (1.8-2.4); POTASSIUM SERUM 3.5 MEQ/L (3.5-5.1); SODIUM LEVEL 145 MEQ/L (136-145); TOTAL PROTEIN 5.9 GM/DL (6.4-8.2)
[2017-07-29] MEDS: HumaLOG INSULIN (NovoLOG) PER UNIT SC ×4 (06:56→17:27)
[2017-07-29] MEDS: TOBRADEX OPHTH SUSP 2.5 ML OD ×4 (06:57→23:32)
[2017-07-29] MEDS: APIXABAN 5 MG TAB (ELIQUIS) PO ×2 (09:21→23:31)
[2017-07-29] MEDS: COSOPT OCUMETER PLUS 10ML (DORZOLAMIDE/TIMOLOL) OS ×2 (09:21→23:33)
[2017-07-29] MEDS: PANTOPRAZOLE 40MG INJ (PROTONIX) (C9113) IV (09:21)
[2017-07-29] MEDS: GABAPENTIN 300 MG CAP PO ×2 (09:21→23:31)
[2017-07-29] MEDS: CYCLOPENTOLATE 1% OPHTH SOLN 2 ML BTL OD ×2 (09:22→23:33)
[2017-07-29] MEDS: prednisoLONE ACET 1% OPHTH SUSP 5ML OD ×3 (09:22→23:33)
[2017-07-29] MEDS: BRIMONIDINE 0.15% OPHTH SOLN 5 ML OS ×3 (09:22→23:32)
[2017-07-29] MEDS ORDERED: PPD DOCUMENTATION ENTRY MISC XX (12:00)
[2017-07-29 14:10] LABS: QUANTIFERON GOLD TB Negative (Negative); TB Test (QFT) Antigen 0.04 IU/mL (.); TB Test (QFT) Mitogen 0.57 IU/mL (.); TB Test (QFT) Nil 0.04 IU/mL (.)
[2017-07-29] MEDS: ACETAMINOPHEN TAB 650MG DOSE (2X325MG) PO (14:18)
[2017-07-29 17:27] LABS: BEDSIDE GLUCOSE 250 MG/DL (80-115)
[2017-07-29] MEDS: VANCOMYCIN HCL 1,000 MG, VIAL MATE ADAPTER 1 EACH in D5W 250 ML IV (17:27)
[2017-07-29] MEDS: NORCO, ANEXSIA 5/325MG TABLET (HYDROcodone/ACETAMINOPHEN) PO (23:32)
[2017-07-29] MEDS: LATANOPROST 0.005% OPHTH SOLN 2.5 ML OS (23:32)
[2017-07-30 00:32] LABS: BEDSIDE GLUCOSE 330 MG/DL (80-115)
[2017-07-30] MEDS: PIPERACILLIN/TAZOBACTAM SOD 3.375 GM in APPROPRIATE DILUENT 1 EA IV (04:53)
[2017-07-30] MEDS: SODIUM CHLORIDE 0.9% INJ 10 ML SYR IV ×2 (04:53→17:41)
[2017-07-30] MEDS: TOBRADEX OPHTH SUSP 2.5 ML OD ×3 (04:54→17:41)
[2017-07-30 06:11] LABS: ALBUMIN 2.1 GM/DL (3.2-5.2); ALBUMIN/GLOBULIN RATIO 0.55 (1.00-1.93); ALKALINE PHOSPHATASE 116 U/L (45-117); ALT/SGPT 20 U/L (12-78); AST/SGOT 15 U/L (7-37); BILIRUBIN,TOTAL 1.1 MG/DL (0.2-1.0); BLOOD UREA NITROGEN 41 MG/DL (7-18); CALCIUM LEVEL 8.5 MG/DL (8.8-10.2); CARBON DIOXIDE LEVEL 16 MEQ/L (21-32); CHLORIDE LEVEL 121 MEQ/L (98-107); GLOMERULAR FILTRATION RATE 59.6 (>45); GLUCOSE, FASTING 230 MG/DL (80-110); MAGNESIUM LEVEL 2.2 MG/DL (1.8-2.4); TOTAL PROTEIN 5.9 GM/DL (6.4-8.2)
[2017-07-30 06:14] LABS: ANION GAP 9 MEQ/L (8-16); SODIUM LEVEL 146 MEQ/L (136-145)
[2017-07-30 06:17] LABS: POTASSIUM SERUM 2.9 MEQ/L (3.5-5.1)
[2017-07-30] MEDS: HumaLOG INSULIN (NovoLOG) PER UNIT SC ×4 (06:51→17:41)
[2017-07-30] MEDS: POTASSIUM CHLORIDE 10 MEQ SR TABLET PO ×2 (06:51→09:16)
[2017-07-30] MEDS: APIXABAN 5 MG TAB (ELIQUIS) PO ×2 (09:16→22:13)
[2017-07-30] MEDS: COSOPT OCUMETER PLUS 10ML (DORZOLAMIDE/TIMOLOL) OS ×2 (09:16→22:15)
[2017-07-30] MEDS: PANTOPRAZOLE 40MG INJ (PROTONIX) (C9113) IV (09:16)
[2017-07-30] MEDS: GABAPENTIN 300 MG CAP PO ×2 (09:16→22:13)
[2017-07-30] MEDS: CYCLOPENTOLATE 1% OPHTH SOLN 2 ML BTL OD ×2 (09:17→22:14)
[2017-07-30] MEDS: prednisoLONE ACET 1% OPHTH SUSP 5ML OD ×3 (09:17→22:14)
[2017-07-30] MEDS: BRIMONIDINE 0.15% OPHTH SOLN 5 ML OS ×3 (09:17→22:14)
[2017-07-30] MEDS: LINEZOLID 600MG TABLET (ZYVOX) PO ×2 (09:48→22:13)
[2017-07-30 13:32] LABS: BEDSIDE GLUCOSE 181 MG/DL (80-115)
[2017-07-30 16:45] LABS: HEMATOCRIT 27.3 % (36.0-47.0); HEMOGLOBIN 9.2 g/dl (12.0-16.0); MEAN CORPUSCULAR HGB CONC 33.7 g/dl (32.0-36.5); MEAN CORPUSCULAR VOLUME 88.9 fl (80.0-96.0); PLATELET COUNT, AUTOMATED 464 10^3/uL (150-450); RED BLOOD COUNT 3.07 10^6/uL (4.00-5.40); RED CELL DISTRIBUTION WIDTH 16.5 % (11.5-14.5); WHITE BLOOD COUNT 19.5 10^3/uL (4.0-10.0)
[2017-07-30 17:09] LABS: ANION GAP 9 MEQ/L (8-16); BLOOD UREA NITROGEN 34 MG/DL (7-18); CALCIUM LEVEL 8.1 MG/DL (8.8-10.2); CARBON DIOXIDE LEVEL 16 MEQ/L (21-32); CHLORIDE LEVEL 124 MEQ/L (98-107); CREATININE FOR GFR 0.83 MG/DL (0.55-1.02); GLOMERULAR FILTRATION RATE > 60.0 (>45); GLUCOSE, FASTING 240 MG/DL (80-110); POTASSIUM SERUM 3.7 MEQ/L (3.5-5.1); SODIUM LEVEL 149 MEQ/L (136-145)
[2017-07-30 18:08] LABS: BEDSIDE GLUCOSE 221 MG/DL (80-115)
[2017-07-30] MEDS: LATANOPROST 0.005% OPHTH SOLN 2.5 ML OS (22:14)
[2017-07-31 00:11] LABS: BEDSIDE GLUCOSE 282 MG/DL (80-115)
[2017-07-31] MEDS: HumaLOG INSULIN (NovoLOG) PER UNIT SC ×4 (00:39→18:05)
[2017-07-31] MEDS: TOBRADEX OPHTH SUSP 2.5 ML OD ×4 (00:39→18:08)
[2017-07-31] MEDS: SODIUM CHLORIDE 0.9% INJ 10 ML SYR IV ×2 (05:50→18:06)
[2017-07-31 06:20] LABS: BEDSIDE GLUCOSE 228 MG/DL (80-115)
[2017-07-31 06:54] LABS: ALBUMIN 1.9 GM/DL (3.2-5.2); ALBUMIN/GLOBULIN RATIO 0.53 (1.00-1.93); ALKALINE PHOSPHATASE 110 U/L (45-117); ALT/SGPT 18 U/L (12-78); ANION GAP 10 MEQ/L (8-16); AST/SGOT 17 U/L (7-37); BILIRUBIN,TOTAL 1.2 MG/DL (0.2-1.0); BLOOD UREA NITROGEN 28 MG/DL (7-18); CALCIUM LEVEL 8.4 MG/DL (8.8-10.2); CARBON DIOXIDE LEVEL 17 MEQ/L (21-32); CHLORIDE LEVEL 123 MEQ/L (98-107); CREATININE FOR GFR 0.69 MG/DL (0.55-1.02); GLOMERULAR FILTRATION RATE > 60.0 (>45); GLUCOSE, FASTING 215 MG/DL (80-110); MAGNESIUM LEVEL 2.4 MG/DL (1.8-2.4); POTASSIUM SERUM 3.7 MEQ/L (3.5-5.1); SODIUM LEVEL 150 MEQ/L (136-145); TOTAL PROTEIN 5.5 GM/DL (6.4-8.2)
[2017-07-31] MEDS: APIXABAN 5 MG TAB (ELIQUIS) PO ×2 (09:41→22:33)
[2017-07-31] MEDS: PANTOPRAZOLE 40MG INJ (PROTONIX) (C9113) IV (09:41)
[2017-07-31] MEDS: POTASSIUM CHLORIDE 10 MEQ SR TABLET PO (09:41)
[2017-07-31] MEDS: D5W 1,000 ML IV ×2 (09:41→16:20)
[2017-07-31] MEDS: LINEZOLID 600MG TABLET (ZYVOX) PO ×2 (09:42→22:33)
[2017-07-31] MEDS: GABAPENTIN 300 MG CAP PO ×2 (09:42→22:33)
[2017-07-31] MEDS: BRIMONIDINE 0.15% OPHTH SOLN 5 ML OS ×3 (09:42→22:34)
[2017-07-31] MEDS: CYCLOPENTOLATE 1% OPHTH SOLN 2 ML BTL OD ×2 (10:07→22:30)
[2017-07-31] MEDS: COSOPT OCUMETER PLUS 10ML (DORZOLAMIDE/TIMOLOL) OS ×2 (10:08→22:32)
[2017-07-31] MEDS: prednisoLONE ACET 1% OPHTH SUSP 5ML OD ×3 (10:08→22:31)
[2017-07-31 12:07] LABS: BEDSIDE GLUCOSE 287 MG/DL (80-115)
[2017-07-31 14:37] LABS: HEMATOCRIT 30.7 % (36.0-47.0); HEMOGLOBIN 9.9 g/dl (12.0-16.0); MEAN CORPUSCULAR HEMOGLOBIN 29.8 pg (27.0-33.0); MEAN CORPUSCULAR HGB CONC 32.2 g/dl (32.0-36.5); MEAN CORPUSCULAR VOLUME 92.5 fl (80.0-96.0); PLATELET COUNT, AUTOMATED 437 10^3/uL (150-450); RED BLOOD COUNT 3.32 10^6/uL (4.00-5.40); RED CELL DISTRIBUTION WIDTH 17.2 % (11.5-14.5); WHITE BLOOD COUNT 20.5 10^3/uL (4.0-10.0)
[2017-07-31 18:37] LABS: BEDSIDE GLUCOSE 318 MG/DL (80-115)
[2017-07-31 18:54] LABS: ANION GAP 9 MEQ/L (8-16); BLOOD UREA NITROGEN 22 MG/DL (7-18); CALCIUM LEVEL 7.9 MG/DL (8.8-10.2); CARBON DIOXIDE LEVEL 17 MEQ/L (21-32); CHLORIDE LEVEL 116 MEQ/L (98-107); CREATININE FOR GFR 0.83 MG/DL (0.55-1.02); GLOMERULAR FILTRATION RATE > 60.0 (>45); GLUCOSE, FASTING 353 MG/DL (80-110); POTASSIUM SERUM 3.8 MEQ/L (3.5-5.1); SODIUM LEVEL 142 MEQ/L (136-145)
[2017-07-31] MEDS: LATANOPROST 0.005% OPHTH SOLN 2.5 ML OS (22:35)
[2017-08-01 00:49] LABS: BEDSIDE GLUCOSE 272 MG/DL (80-115)
[2017-08-01] MEDS: TOBRADEX OPHTH SUSP 2.5 ML OD ×4 (00:49→17:50)
[2017-08-01] MEDS: HumaLOG INSULIN (NovoLOG) PER UNIT SC ×4 (06:00→17:49)
[2017-08-01] MEDS: SODIUM CHLORIDE 0.9% INJ 10 ML SYR IV ×3 (06:00→17:50)
[2017-08-01 07:47] LABS: HEMATOCRIT 25.2 % (36.0-47.0); HEMOGLOBIN 8.4 g/dl (12.0-16.0); MEAN CORPUSCULAR HEMOGLOBIN 29.9 pg (27.0-33.0); MEAN CORPUSCULAR HGB CONC 33.3 g/dl (32.0-36.5); MEAN CORPUSCULAR VOLUME 89.7 fl (80.0-96.0); PLATELET COUNT, AUTOMATED 420 10^3/uL (150-450); RED BLOOD COUNT 2.81 10^6/uL (4.00-5.40); RED CELL DISTRIBUTION WIDTH 16.6 % (11.5-14.5); WHITE BLOOD COUNT 20.9 10^3/uL (4.0-10.0)
[2017-08-01 08:16] LABS: ANION GAP 11 MEQ/L (8-16); BLOOD UREA NITROGEN 22 MG/DL (7-18); CALCIUM LEVEL 7.9 MG/DL (8.8-10.2); CARBON DIOXIDE LEVEL 17 MEQ/L (21-32); CHLORIDE LEVEL 119 MEQ/L (98-107); CREATININE FOR GFR 0.75 MG/DL (0.55-1.02); GLOMERULAR FILTRATION RATE > 60.0 (>45); GLUCOSE, FASTING 207 MG/DL (80-110); MAGNESIUM LEVEL 2.3 MG/DL (1.8-2.4); POTASSIUM SERUM 3.7 MEQ/L (3.5-5.1); SODIUM LEVEL 147 MEQ/L (136-145)
[2017-08-01] MEDS: PANTOPRAZOLE 40MG INJ (PROTONIX) (C9113) IV (09:00)
[2017-08-01] MEDS: COSOPT OCUMETER PLUS 10ML (DORZOLAMIDE/TIMOLOL) OS ×2 (09:37→20:46)
[2017-08-01] MEDS: PANTOPRAZOLE 40MG TAB (PROTONIX) PO (09:38)
[2017-08-01] MEDS: BRIMONIDINE 0.15% OPHTH SOLN 5 ML OS ×3 (09:38→20:45)
[2017-08-01] MEDS: APIXABAN 5 MG TAB (ELIQUIS) PO ×2 (09:38→20:42)
[2017-08-01] MEDS: LINEZOLID 600MG TABLET (ZYVOX) PO ×2 (09:38→20:44)
[2017-08-01] MEDS: GABAPENTIN 300 MG CAP PO ×2 (09:38→20:42)
[2017-08-01] MEDS: prednisoLONE ACET 1% OPHTH SUSP 5ML OD ×3 (09:44→20:45)
[2017-08-01] MEDS: CYCLOPENTOLATE 1% OPHTH SOLN 2 ML BTL OD ×2 (10:21→20:44)
[2017-08-01] MEDS: NORCO, ANEXSIA 5/325MG TABLET (HYDROcodone/ACETAMINOPHEN) PO (10:22)
[2017-08-01 10:24] LABS: LACTIC ACID SEPSIS PROTOCOL 1.5 MMOL/L (0.4-2.0)
[2017-08-01 11:40] LABS: BEDSIDE GLUCOSE 216 MG/DL (80-115)
[2017-08-01 16:47] LABS: BEDSIDE GLUCOSE 217 MG/DL (80-115)
[2017-08-01 18:26] LABS: BEDSIDE GLUCOSE 290 MG/DL (80-115)
[2017-08-01] MEDS: LATANOPROST 0.005% OPHTH SOLN 2.5 ML OS (20:46)
[2017-08-02] MEDS: HumaLOG INSULIN (NovoLOG) PER UNIT SC ×4 (00:39→16:48)
[2017-08-02] MEDS: TOBRADEX OPHTH SUSP 2.5 ML OD ×5 (00:39→16:50)
[2017-08-02 00:41] LABS: BEDSIDE GLUCOSE 265 MG/DL (80-115)
[2017-08-02] MEDS: SODIUM CHLORIDE 0.9% INJ 10 ML SYR IV ×3 (06:00→16:49)
[2017-08-02 06:16] LABS: BEDSIDE GLUCOSE 199 MG/DL (80-115)
[2017-08-02 07:21] LABS: HEMATOCRIT 24.1 % (36.0-47.0); HEMOGLOBIN 8.1 g/dl (12.0-16.0); MEAN CORPUSCULAR HEMOGLOBIN 29.8 pg (27.0-33.0); MEAN CORPUSCULAR HGB CONC 33.6 g/dl (32.0-36.5); MEAN CORPUSCULAR VOLUME 88.6 fl (80.0-96.0); PLATELET COUNT, AUTOMATED 391 10^3/uL (150-450); RED BLOOD COUNT 2.72 10^6/uL (4.00-5.40); RED CELL DISTRIBUTION WIDTH 16.3 % (11.5-14.5); WHITE BLOOD COUNT 16.7 10^3/uL (4.0-10.0)
[2017-08-02 07:32] LABS: ANION GAP 9 MEQ/L (8-16); BLOOD UREA NITROGEN 19 MG/DL (7-18); CALCIUM LEVEL 7.4 MG/DL (8.8-10.2); CARBON DIOXIDE LEVEL 20 MEQ/L (21-32); CHLORIDE LEVEL 117 MEQ/L (98-107); CREATININE FOR GFR 0.72 MG/DL (0.55-1.02); GLOMERULAR FILTRATION RATE > 60.0 (>45); GLUCOSE, FASTING 193 MG/DL (80-110); MAGNESIUM LEVEL 2.4 MG/DL (1.8-2.4); POTASSIUM SERUM 4.3 MEQ/L (3.5-5.1); SODIUM LEVEL 146 MEQ/L (136-145)
[2017-08-02] MEDS: CYCLOPENTOLATE 1% OPHTH SOLN 2 ML BTL OD ×2 (10:03→22:12)
[2017-08-02] MEDS: LINEZOLID 600MG TABLET (ZYVOX) PO ×2 (10:03→22:12)
[2017-08-02] MEDS: GABAPENTIN 300 MG CAP PO ×2 (10:03→22:11)
[2017-08-02] MEDS: APIXABAN 5 MG TAB (ELIQUIS) PO ×2 (10:03→22:12)
[2017-08-02] MEDS: PANTOPRAZOLE 40MG TAB (PROTONIX) PO (10:03)
[2017-08-02] MEDS: BRIMONIDINE 0.15% OPHTH SOLN 5 ML OS ×3 (10:04→22:12)
[2017-08-02] MEDS: COSOPT OCUMETER PLUS 10ML (DORZOLAMIDE/TIMOLOL) OS ×2 (10:06→22:13)
[2017-08-02] MEDS: prednisoLONE ACET 1% OPHTH SUSP 5ML OD ×3 (10:06→22:12)
[2017-08-02 12:01] LABS: BEDSIDE GLUCOSE 308 MG/DL (80-115)
[2017-08-02 17:01] LABS: BEDSIDE GLUCOSE 319 MG/DL (80-115)
[2017-08-02] MEDS: LATANOPROST 0.005% OPHTH SOLN 2.5 ML OS (22:13)
[2017-08-02 23:57] LABS: BEDSIDE GLUCOSE 342 MG/DL (80-115)
[2017-08-03] MEDS: TOBRADEX OPHTH SUSP 2.5 ML OD ×4 (00:02→18:26)
[2017-08-03] MEDS: HumaLOG INSULIN (NovoLOG) PER UNIT SC ×4 (00:02→18:25)
[2017-08-03 04:48] LABS: BEDSIDE GLUCOSE 258 MG/DL (80-115)
[2017-08-03] MEDS: SODIUM CHLORIDE 0.9% INJ 10 ML SYR IV ×2 (04:53→18:26)
[2017-08-03 05:04] LABS: HEMATOCRIT 23.9 % (36.0-47.0); HEMOGLOBIN 7.7 g/dl (12.0-16.0); MEAN CORPUSCULAR HGB CONC 32.2 g/dl (32.0-36.5); PLATELET COUNT, AUTOMATED 382 10^3/uL (150-450); RED BLOOD COUNT 2.57 10^6/uL (4.00-5.40); RED CELL DISTRIBUTION WIDTH 16.6 % (11.5-14.5); WHITE BLOOD COUNT 13.7 10^3/uL (4.0-10.0)
[2017-08-03 05:35] LABS: ANION GAP 8 MEQ/L (8-16); BLOOD UREA NITROGEN 18 MG/DL (7-18); CALCIUM LEVEL 7.3 MG/DL (8.8-10.2); CARBON DIOXIDE LEVEL 23 MEQ/L (21-32); CHLORIDE LEVEL 116 MEQ/L (98-107); CREATININE FOR GFR 0.84 MG/DL (0.55-1.02); GLOMERULAR FILTRATION RATE > 60.0 (>45); GLUCOSE, FASTING 275 MG/DL (80-110); MAGNESIUM LEVEL 2.3 MG/DL (1.8-2.4); POTASSIUM SERUM 4.2 MEQ/L (3.5-5.1); SODIUM LEVEL 147 MEQ/L (136-145)
[2017-08-03] MEDS: PANTOPRAZOLE 40MG TAB (PROTONIX) PO (09:50)
[2017-08-03] MEDS: GABAPENTIN 300 MG CAP PO ×2 (09:50→22:10)
[2017-08-03] MEDS: APIXABAN 5 MG TAB (ELIQUIS) PO ×2 (09:50→22:10)
[2017-08-03] MEDS: COSOPT OCUMETER PLUS 10ML (DORZOLAMIDE/TIMOLOL) OS ×2 (09:51→22:10)
[2017-08-03] MEDS: CYCLOPENTOLATE 1% OPHTH SOLN 2 ML BTL OD ×2 (09:51→22:10)
[2017-08-03] MEDS: BRIMONIDINE 0.15% OPHTH SOLN 5 ML OS ×3 (09:52→22:11)
[2017-08-03] MEDS: prednisoLONE ACET 1% OPHTH SUSP 5ML OD ×3 (09:52→22:11)
[2017-08-03] MEDS: ACETAMINOPHEN TAB 650MG DOSE (2X325MG) PO ×2 (09:58→22:16)
[2017-08-03] MEDS: LINEZOLID 600MG TABLET (ZYVOX) PO ×2 (10:02→22:10)
[2017-08-03 10:51] LABS: BASO % 0.1 % (0.0-1.0); EOS # 0.5 10^3/uL (0.0-0.50); EOS % 3.8 % (0.0-3.0); HEMATOCRIT 23.9 % (36.0-47.0); HEMOGLOBIN 7.7 g/dl (12.0-16.0); IMMATURE GRANULOCYTE # 0.1 10^3/uL (0-0); IMMATURE GRANULOCYTE % 0.6 % (0-0); LYMPH # 1.7 10^3/uL (1.5-4.5); LYMPH % 12.6 % (24.0-44.0); MEAN CORPUSCULAR HEMOGLOBIN 30.1 pg (27.0-33.0); MEAN CORPUSCULAR HGB CONC 32.2 g/dl (32.0-36.5); MEAN CORPUSCULAR VOLUME 93.4 fl (80.0-96.0); MONO # 0.5 10^3/uL (0.0-0.8); MONO % 4.1 % (0.0-5.0); NEUTROPHILS # 10.3 10^3/uL (1.8-7.7); NEUTROPHILS % 78.8 % (36.0-66.0); PLATELET COUNT, AUTOMATED 393 10^3/uL (150-450); RED BLOOD COUNT 2.56 10^6/uL (4.00-5.40); RED CELL DISTRIBUTION WIDTH 16.7 % (11.5-14.5); WHITE BLOOD COUNT 13.1 10^3/uL (4.0-10.0)
[2017-08-03 11:27] LABS: RETIC HEMOGLOBIN EQUIVALENT 28.5 pg (24-36); RETICULOCYTE # 105.6 10^9/L (17-77); RETICULOCYTE % 4.1 % (0.5-1.5)
[2017-08-03 12:00] LABS: BEDSIDE GLUCOSE 350 MG/DL (80-115)
[2017-08-03 13:28] LABS: IMMEDIATE SPIN CROSSMATCH 1 1
[2017-08-03 15:12] LABS: KETONE, URINE AUTO RFX NEGATIVE (NEGATIVE); LEUKOCYTE ESTERASE UR AUTO RFX NEGATIVE (NEGATIVE); MUCUS, URINE RFX SMALL (NEGATIVE); NITRITE, URINE AUTO RFX NEGATIVE (NEGATIVE); RBC, URINE AUTO RFX 4 /HPF (0-3); SPECIFIC GRAVITY UR AUTO RFX 1.023 (1.002-1.035); SQUAM EPITHELIAL CELL UR AURFX 0 /HPF (0-6); WBC, URINE AUTO RFX 1 /HPF (0-3)
[2017-08-03 18:10] LABS: BEDSIDE GLUCOSE 306 MG/DL (80-115)
[2017-08-03] MEDS: LATANOPROST 0.005% OPHTH SOLN 2.5 ML OS (22:12)
[2017-08-04 00:19] LABS: BEDSIDE GLUCOSE 320 MG/DL (80-115)
[2017-08-04] MEDS: HumaLOG INSULIN (NovoLOG) PER UNIT SC ×4 (00:34→18:23)
[2017-08-04] MEDS: TOBRADEX OPHTH SUSP 2.5 ML OD ×4 (00:35→18:24)
[2017-08-04] MEDS: SODIUM CHLORIDE 0.9% INJ 10 ML SYR IV ×2 (05:15→18:22)
[2017-08-04 05:38] LABS: BEDSIDE GLUCOSE 183 MG/DL (80-115)
[2017-08-04 05:39] LABS: HEMATOCRIT 27.2 % (36.0-47.0); HEMOGLOBIN 8.9 g/dl (12.0-16.0); MEAN CORPUSCULAR HEMOGLOBIN 29.6 pg (27.0-33.0); MEAN CORPUSCULAR HGB CONC 32.7 g/dl (32.0-36.5); MEAN CORPUSCULAR VOLUME 90.4 fl (80.0-96.0); PLATELET COUNT, AUTOMATED 367 10^3/uL (150-450); RED BLOOD COUNT 3.01 10^6/uL (4.00-5.40); RED CELL DISTRIBUTION WIDTH 17.2 % (11.5-14.5); WHITE BLOOD COUNT 13.6 10^3/uL (4.0-10.0)
[2017-08-04 06:04] LABS: ANION GAP 6 MEQ/L (8-16); BLOOD UREA NITROGEN 13 MG/DL (7-18); CALCIUM LEVEL 7.1 MG/DL (8.8-10.2); CARBON DIOXIDE LEVEL 26 MEQ/L (21-32); CHLORIDE LEVEL 112 MEQ/L (98-107); GLOMERULAR FILTRATION RATE > 60.0 (>45); GLUCOSE, FASTING 202 MG/DL (80-110); MAGNESIUM LEVEL 2.4 MG/DL (1.8-2.4); POTASSIUM SERUM 4.5 MEQ/L (3.5-5.1); SODIUM LEVEL 144 MEQ/L (136-145)
[2017-08-04] MEDS: LINEZOLID 600MG TABLET (ZYVOX) PO ×2 (09:48→21:37)
[2017-08-04] MEDS: GABAPENTIN 300 MG CAP PO ×2 (09:49→21:37)
[2017-08-04] MEDS: BRIMONIDINE 0.15% OPHTH SOLN 5 ML OS ×3 (09:49→21:38)
[2017-08-04] MEDS: APIXABAN 5 MG TAB (ELIQUIS) PO ×2 (09:49→21:37)
[2017-08-04] MEDS: PANTOPRAZOLE 40MG TAB (PROTONIX) PO (09:49)
[2017-08-04] MEDS: COSOPT OCUMETER PLUS 10ML (DORZOLAMIDE/TIMOLOL) OS ×2 (09:49→21:38)
[2017-08-04] MEDS: CYCLOPENTOLATE 1% OPHTH SOLN 2 ML BTL OD ×2 (09:49→21:38)
[2017-08-04] MEDS: prednisoLONE ACET 1% OPHTH SUSP 5ML OD ×3 (09:50→21:37)
[2017-08-04 12:40] LABS: BEDSIDE GLUCOSE 341 MG/DL (80-115)
[2017-08-04 18:24] LABS: BEDSIDE GLUCOSE 395 MG/DL (80-115)
[2017-08-04] MEDS: LATANOPROST 0.005% OPHTH SOLN 2.5 ML OS (21:38)
[2017-08-05 00:21] LABS: BEDSIDE GLUCOSE 259 MG/DL (80-115)
[2017-08-05] MEDS: HumaLOG INSULIN (NovoLOG) PER UNIT SC ×4 (00:37→17:38)
[2017-08-05] MEDS: TOBRADEX OPHTH SUSP 2.5 ML OD ×4 (00:37→17:40)
[2017-08-05] MEDS: FLUCONAZOLE 100 MG TAB PO ×2 (00:37→22:24)
[2017-08-05] MEDS: NYSTATIN 100,000 UNITS/GM TOPICAL PWD 15 GM TOP ×3 (00:52→21:00)
[2017-08-05] MEDS: ALBUTEROL SULFATE 2.5 MG/0.5 ML INH NEB SOLN INH (01:15)
[2017-08-05] MEDS: SODIUM CHLORIDE 0.9% INJ 10 ML SYR IV ×3 (05:23→17:39)
[2017-08-05 05:34] LABS: BEDSIDE GLUCOSE 191 MG/DL (80-115)
[2017-08-05 05:46] LABS: HEMATOCRIT 27.5 % (36.0-47.0); HEMOGLOBIN 8.9 g/dl (12.0-16.0); MEAN CORPUSCULAR HGB CONC 32.4 g/dl (32.0-36.5); MEAN CORPUSCULAR VOLUME 89.6 fl (80.0-96.0); PLATELET COUNT, AUTOMATED 391 10^3/uL (150-450); RED BLOOD COUNT 3.07 10^6/uL (4.00-5.40); RED CELL DISTRIBUTION WIDTH 16.3 % (11.5-14.5); WHITE BLOOD COUNT 13.9 10^3/uL (4.0-10.0)
[2017-08-05 06:08] LABS: ANION GAP 7 MEQ/L (8-16); BLOOD UREA NITROGEN 13 MG/DL (7-18); CARBON DIOXIDE LEVEL 27 MEQ/L (21-32); CHLORIDE LEVEL 107 MEQ/L (98-107); GLOMERULAR FILTRATION RATE > 60.0 (>45); GLUCOSE, FASTING 203 MG/DL (80-110); POTASSIUM SERUM 4.6 MEQ/L (3.5-5.1); SODIUM LEVEL 141 MEQ/L (136-145)
[2017-08-05 08:58] LABS: C REACTIVE PROTEIN QUANTITATIV 9.24 MG/DL (0.00-0.30)
[2017-08-05] MEDS: COSOPT OCUMETER PLUS 10ML (DORZOLAMIDE/TIMOLOL) OS ×2 (09:10→22:25)
[2017-08-05] MEDS: CYCLOPENTOLATE 1% OPHTH SOLN 2 ML BTL OD ×2 (09:11→22:26)
[2017-08-05] MEDS: BRIMONIDINE 0.15% OPHTH SOLN 5 ML OS ×3 (09:11→22:26)
[2017-08-05] MEDS: prednisoLONE ACET 1% OPHTH SUSP 5ML OD ×3 (09:11→22:25)
[2017-08-05] MEDS: APIXABAN 5 MG TAB (ELIQUIS) PO (09:12)
[2017-08-05] MEDS: PANTOPRAZOLE 40MG TAB (PROTONIX) PO (09:12)
[2017-08-05] MEDS: LINEZOLID 600MG TABLET (ZYVOX) PO ×2 (09:12→22:25)
[2017-08-05] MEDS: GABAPENTIN 300 MG CAP PO ×2 (09:12→22:24)
[2017-08-05 11:55] LABS: BEDSIDE GLUCOSE 335 MG/DL (80-115)
[2017-08-05 17:19] LABS: BEDSIDE GLUCOSE 265 MG/DL (80-115)
[2017-08-05] MEDS: ENOXAPARIN 80 MG/0.8 ML SYRINGE (J1650) SC (17:38)
[2017-08-05] MEDS: guaiFENesin ER 600 MG TAB PO (22:25)
[2017-08-05] MEDS: LATANOPROST 0.005% OPHTH SOLN 2.5 ML OS (22:26)
[2017-08-06 00:33] LABS: BEDSIDE GLUCOSE 286 MG/DL (80-115)
[2017-08-06] MEDS: TOBRADEX OPHTH SUSP 2.5 ML OD ×4 (00:49→17:47)
[2017-08-06] MEDS: HumaLOG INSULIN (NovoLOG) PER UNIT SC ×4 (00:49→17:46)
[2017-08-06 05:30] LABS: BEDSIDE GLUCOSE 189 MG/DL (80-115)
[2017-08-06] MEDS: ENOXAPARIN 80 MG/0.8 ML SYRINGE (J1650) SC ×2 (05:59→17:46)
[2017-08-06 06:04] LABS: HEMATOCRIT 27.6 % (36.0-47.0); HEMOGLOBIN 8.7 g/dl (12.0-16.0); MEAN CORPUSCULAR HEMOGLOBIN 28.6 pg (27.0-33.0); MEAN CORPUSCULAR HGB CONC 31.5 g/dl (32.0-36.5); MEAN CORPUSCULAR VOLUME 90.8 fl (80.0-96.0); PLATELET COUNT, AUTOMATED 359 10^3/uL (150-450); RED BLOOD COUNT 3.04 10^6/uL (4.00-5.40); RED CELL DISTRIBUTION WIDTH 15.5 % (11.5-14.5); WHITE BLOOD COUNT 11.1 10^3/uL (4.0-10.0)
[2017-08-06 06:16] LABS: ANION GAP 4 MEQ/L (8-16); BLOOD UREA NITROGEN 13 MG/DL (7-18); CALCIUM LEVEL 7.4 MG/DL (8.8-10.2); CARBON DIOXIDE LEVEL 30 MEQ/L (21-32); CHLORIDE LEVEL 105 MEQ/L (98-107); CREATININE FOR GFR 0.72 MG/DL (0.55-1.02); GLOMERULAR FILTRATION RATE > 60.0 (>45); GLUCOSE, FASTING 178 MG/DL (80-110); SODIUM LEVEL 139 MEQ/L (136-145)
[2017-08-06] MEDS ORDERED: GLUCAGON FOR INJ 1 MG VIAL (J1610) SC (08:00)
[2017-08-06] MEDS ORDERED: DEXTROSE 50% 50 ML SYRINGE IV (08:00)
[2017-08-06] MEDS ORDERED: GLUCOSE 4 GM CHEW TABLET PO (08:00)
[2017-08-06] MEDS: LINEZOLID 600MG TABLET (ZYVOX) PO ×2 (11:12→22:18)
[2017-08-06] MEDS: guaiFENesin ER 600 MG TAB PO ×2 (11:12→22:18)
[2017-08-06] MEDS: GABAPENTIN 300 MG CAP PO ×2 (11:12→22:18)
[2017-08-06] MEDS: PANTOPRAZOLE 40MG TAB (PROTONIX) PO (11:12)
[2017-08-06] MEDS: BRIMONIDINE 0.15% OPHTH SOLN 5 ML OS ×3 (11:13→22:19)
[2017-08-06] MEDS: COSOPT OCUMETER PLUS 10ML (DORZOLAMIDE/TIMOLOL) OS ×2 (11:13→22:23)
[2017-08-06] MEDS: prednisoLONE ACET 1% OPHTH SUSP 5ML OD ×3 (11:14→22:22)
[2017-08-06] MEDS: CYCLOPENTOLATE 1% OPHTH SOLN 2 ML BTL OD ×2 (11:15→22:19)
[2017-08-06] MEDS: NYSTATIN 100,000 UNITS/GM TOPICAL PWD 15 GM TOP ×2 (11:15→22:25)
[2017-08-06 11:57] LABS: BEDSIDE GLUCOSE 244 MG/DL (80-115)
[2017-08-06 17:25] LABS: BEDSIDE GLUCOSE 293 MG/DL (80-115)
[2017-08-06] MEDS: FLUCONAZOLE 100 MG TAB PO (22:18)
[2017-08-06] MEDS: LATANOPROST 0.005% OPHTH SOLN 2.5 ML OS (22:25)
[2017-08-06] MEDS: ALBUTEROL SULFATE 2.5 MG/0.5 ML INH NEB SOLN INH (22:34)
[2017-08-07] MEDS: TOBRADEX OPHTH SUSP 2.5 ML OD ×4 (00:26→17:36)
[2017-08-07 00:27] LABS: BEDSIDE GLUCOSE 270 MG/DL (80-115)
[2017-08-07] MEDS: ENOXAPARIN 80 MG/0.8 ML SYRINGE (J1650) SC ×2 (05:11→17:35)
[2017-08-07 06:42] LABS: ANION GAP 6 MEQ/L (8-16); BLOOD UREA NITROGEN 11 MG/DL (7-18); CALCIUM LEVEL 7.7 MG/DL (8.8-10.2); CARBON DIOXIDE LEVEL 29 MEQ/L (21-32); CHLORIDE LEVEL 99 MEQ/L (98-107); CREATININE FOR GFR 0.67 MG/DL (0.55-1.02); GLOMERULAR FILTRATION RATE > 60.0 (>45); GLUCOSE, FASTING 262 MG/DL (80-110); SODIUM LEVEL 134 MEQ/L (136-145)
[2017-08-07 06:44] LABS: POTASSIUM SERUM 5.5 MEQ/L (3.5-5.1)
[2017-08-07 07:12] LABS: HEMOGLOBIN 9.2 g/dl (12.0-16.0); MEAN CORPUSCULAR HEMOGLOBIN 29.6 pg (27.0-33.0); MEAN CORPUSCULAR HGB CONC 31.7 g/dl (32.0-36.5); MEAN CORPUSCULAR VOLUME 93.2 fl (80.0-96.0); PLATELET COUNT, AUTOMATED 346 10^3/uL (150-450); RED BLOOD COUNT 3.11 10^6/uL (4.00-5.40); RED CELL DISTRIBUTION WIDTH 14.7 % (11.5-14.5)
[2017-08-07] MEDS: guaiFENesin ER 600 MG TAB PO ×2 (08:47→20:44)
[2017-08-07] MEDS: PANTOPRAZOLE 40MG TAB (PROTONIX) PO (08:47)
[2017-08-07] MEDS: LINEZOLID 600MG TABLET (ZYVOX) PO ×2 (08:47→20:44)
[2017-08-07] MEDS: HumaLOG INSULIN (NovoLOG) PER UNIT SC ×3 (08:47→17:35)
[2017-08-07] MEDS: GABAPENTIN 300 MG CAP PO ×2 (08:47→20:44)
[2017-08-07] MEDS: BRIMONIDINE 0.15% OPHTH SOLN 5 ML OS ×3 (08:48→20:45)
[2017-08-07] MEDS: COSOPT OCUMETER PLUS 10ML (DORZOLAMIDE/TIMOLOL) OS ×2 (08:48→20:46)
[2017-08-07] MEDS: CYCLOPENTOLATE 1% OPHTH SOLN 2 ML BTL OD ×2 (08:49→20:47)
[2017-08-07] MEDS: prednisoLONE ACET 1% OPHTH SUSP 5ML OD ×3 (08:49→20:47)
[2017-08-07] MEDS: NYSTATIN 100,000 UNITS/GM TOPICAL PWD 15 GM TOP ×2 (08:50→20:50)
[2017-08-07 11:49] LABS: BEDSIDE GLUCOSE 283 MG/DL (80-115)
[2017-08-07 12:44] LABS: ANION GAP 8 MEQ/L (8-16); BLOOD UREA NITROGEN 12 MG/DL (7-18); CALCIUM LEVEL 7.6 MG/DL (8.8-10.2); CARBON DIOXIDE LEVEL 28 MEQ/L (21-32); CHLORIDE LEVEL 98 MEQ/L (98-107); CREATININE FOR GFR 0.67 MG/DL (0.55-1.02); GLOMERULAR FILTRATION RATE > 60.0 (>45); GLUCOSE, FASTING 287 MG/DL (80-110); SODIUM LEVEL 134 MEQ/L (136-145)
[2017-08-07] MEDS: ACETAMINOPHEN TAB 650MG DOSE (2X325MG) PO (15:05)
[2017-08-07 19:27] LABS: BEDSIDE GLUCOSE 299 MG/DL (80-115)
[2017-08-07 20:12] LABS: BEDSIDE GLUCOSE 275 MG/DL (80-115)
[2017-08-07] MEDS: FLUCONAZOLE 100 MG TAB PO (20:44)
[2017-08-07] MEDS: LATANOPROST 0.005% OPHTH SOLN 2.5 ML OS (20:48)
[2017-08-08] MEDS: TOBRADEX OPHTH SUSP 2.5 ML OD ×5 (00:49→23:37)
[2017-08-08] MEDS: ENOXAPARIN 80 MG/0.8 ML SYRINGE (J1650) SC ×2 (06:10→17:56)
[2017-08-08 06:38] LABS: HEMATOCRIT 26.3 % (36.0-47.0); HEMOGLOBIN 8.5 g/dl (12.0-16.0); MEAN CORPUSCULAR HEMOGLOBIN 29.2 pg (27.0-33.0); MEAN CORPUSCULAR HGB CONC 32.3 g/dl (32.0-36.5); MEAN CORPUSCULAR VOLUME 90.4 fl (80.0-96.0); PLATELET COUNT, AUTOMATED 343 10^3/uL (150-450); RED BLOOD COUNT 2.91 10^6/uL (4.00-5.40); RED CELL DISTRIBUTION WIDTH 13.9 % (11.5-14.5); WHITE BLOOD COUNT 6.5 10^3/uL (4.0-10.0)
[2017-08-08 06:57] LABS: ANION GAP 3 MEQ/L (8-16); BLOOD UREA NITROGEN 11 MG/DL (7-18); CALCIUM LEVEL 7.1 MG/DL (8.8-10.2); CARBON DIOXIDE LEVEL 32 MEQ/L (21-32); CHLORIDE LEVEL 99 MEQ/L (98-107); CREATININE FOR GFR 0.61 MG/DL (0.55-1.02); GLOMERULAR FILTRATION RATE > 60.0 (>45); GLUCOSE, FASTING 287 MG/DL (80-110); POTASSIUM SERUM 4.9 MEQ/L (3.5-5.1); SODIUM LEVEL 134 MEQ/L (136-145)
[2017-08-08] MEDS: guaiFENesin ER 600 MG TAB PO ×2 (09:28→22:48)
[2017-08-08] MEDS: PANTOPRAZOLE 40MG TAB (PROTONIX) PO (09:28)
[2017-08-08] MEDS: LINEZOLID 600MG TABLET (ZYVOX) PO (09:28)
[2017-08-08] MEDS: HumaLOG INSULIN (NovoLOG) PER UNIT SC ×3 (09:29→17:57)
[2017-08-08] MEDS: GABAPENTIN 300 MG CAP PO ×2 (09:29→22:48)
[2017-08-08] MEDS: BRIMONIDINE 0.15% OPHTH SOLN 5 ML OS ×3 (09:30→22:50)
[2017-08-08] MEDS: COSOPT OCUMETER PLUS 10ML (DORZOLAMIDE/TIMOLOL) OS ×2 (09:30→22:49)
[2017-08-08] MEDS: prednisoLONE ACET 1% OPHTH SUSP 5ML OD ×3 (09:31→22:50)
[2017-08-08] MEDS: NYSTATIN 100,000 UNITS/GM TOPICAL PWD 15 GM TOP ×2 (09:31→22:51)
[2017-08-08] MEDS: CYCLOPENTOLATE 1% OPHTH SOLN 2 ML BTL OD ×2 (09:32→21:00)
[2017-08-08 09:58] LABS: BASO % 0.3 % (0.0-1.0); EOS # 0.2 10^3/uL (0.0-0.50); EOS % 3.4 % (0.0-3.0); IMMATURE GRANULOCYTE % 0.3 % (0-0); LYMPH # 1.1 10^3/uL (1.5-4.5); LYMPH % 16.4 % (24.0-44.0); MONO # 0.5 10^3/uL (0.0-0.8); NEUTROPHILS # 4.7 10^3/uL (1.8-7.7); NEUTROPHILS % 72.6 % (36.0-66.0)
[2017-08-08 11:41] LABS: APPEARANCE, URINE CLOUDY (CLEAR); BACTERIA, URINE AUTO 2+ (NEGATIVE); BILIRUBIN, URINE AUTO NEGATIVE (NEGATIVE); BLOOD, URINE BLOOD 2+ (NEGATIVE); COLOR, URINE YELLOW (YELLOW); GLUCOSE, URINE (UA) AUTO 3+ mg/dL (NEGATIVE); KETONE, URINE AUTO NEGATIVE (NEGATIVE); LEUKOCYTE ESTERASE, URINE AUTO 3+ (NEGATIVE); MUCUS, URINE SMALL (NEGATIVE); NITRITE, URINE AUTO POSITIVE (NEGATIVE); PROTEIN, URINE AUTO 1+ mg/dL (NEGATIVE); RBC, URINE AUTO 167 /HPF (0-3); SPECIFIC GRAVITY URINE AUTO 1.027 (1.002-1.035); SQUAMOUS EPITHELIAL CELL UR AU 0 /HPF (0-6); UROBILINOGEN, URINE AUTO 0.2 mg/dL (0.0-2.0); WBC, URINE AUTO TNTC /HPF (0-3); YEAST LIKE CELL URINE AUTO LARGE
[2017-08-08 11:57] LABS: BEDSIDE GLUCOSE 313 MG/DL (80-115)
[2017-08-08 13:48] LABS: DIFF SLIDE NUMBER 4; PLATELET ESTIMATE NORMAL (NORMAL)
[2017-08-08 17:09] LABS: BEDSIDE GLUCOSE 173 MG/DL (80-115)
[2017-08-08] MEDS: CIPROFLOXACIN 500 MG TAB PO (17:56)
[2017-08-08] MEDS: WARFARIN SOD 7.5 MG TAB PO (17:57)
[2017-08-08 21:00] LABS: BEDSIDE GLUCOSE 241 MG/DL (80-115)
[2017-08-08] MEDS: FLUCONAZOLE 100 MG TAB PO (22:48)
[2017-08-08] MEDS: TAMSULOSIN 0.4 MG CAP PO (22:48)
[2017-08-08] MEDS: LATANOPROST 0.005% OPHTH SOLN 2.5 ML OS (22:51)
[2017-08-09 06:23] LABS: HEMATOCRIT 26.4 % (36.0-47.0); HEMOGLOBIN 8.5 g/dl (12.0-16.0); MEAN CORPUSCULAR HEMOGLOBIN 29.3 pg (27.0-33.0); MEAN CORPUSCULAR HGB CONC 32.2 g/dl (32.0-36.5); PLATELET COUNT, AUTOMATED 344 10^3/uL (150-450); RED CELL DISTRIBUTION WIDTH 13.6 % (11.5-14.5); WHITE BLOOD COUNT 5.8 10^3/uL (4.0-10.0)
[2017-08-09 06:30] LABS: ANION GAP 4 MEQ/L (8-16); BLOOD UREA NITROGEN 12 MG/DL (7-18); CALCIUM LEVEL 7.6 MG/DL (8.8-10.2); CARBON DIOXIDE LEVEL 32 MEQ/L (21-32); CHLORIDE LEVEL 96 MEQ/L (98-107); CREATININE FOR GFR 0.57 MG/DL (0.55-1.02); GLOMERULAR FILTRATION RATE > 60.0 (>45); GLUCOSE, FASTING 255 MG/DL (80-110); POTASSIUM SERUM 4.6 MEQ/L (3.5-5.1); SODIUM LEVEL 132 MEQ/L (136-145)
[2017-08-09 06:36] LABS: INR 1.07; PROTHROMBIN TIME 14.1 SECONDS (12.4-14.5)
[2017-08-09] MEDS: ENOXAPARIN 80 MG/0.8 ML SYRINGE (J1650) SC ×2 (06:38→18:06)
[2017-08-09] MEDS: TOBRADEX OPHTH SUSP 2.5 ML OD ×3 (06:39→18:07)
[2017-08-09] MEDS: CIPROFLOXACIN 500 MG TAB PO ×2 (06:39→18:06)
[2017-08-09] MEDS: PANTOPRAZOLE 40MG TAB (PROTONIX) PO (08:19)
[2017-08-09] MEDS: guaiFENesin ER 600 MG TAB PO ×2 (08:19→21:55)
[2017-08-09] MEDS: GABAPENTIN 300 MG CAP PO ×2 (08:19→21:55)
[2017-08-09] MEDS: COSOPT OCUMETER PLUS 10ML (DORZOLAMIDE/TIMOLOL) OS ×2 (08:20→21:56)
[2017-08-09] MEDS: HumaLOG INSULIN (NovoLOG) PER UNIT SC ×3 (08:20→18:05)
[2017-08-09] MEDS: CYCLOPENTOLATE 1% OPHTH SOLN 2 ML BTL OD ×2 (08:21→21:56)
[2017-08-09] MEDS: prednisoLONE ACET 1% OPHTH SUSP 5ML OD ×3 (08:21→21:56)
[2017-08-09] MEDS: BRIMONIDINE 0.15% OPHTH SOLN 5 ML OS ×3 (08:21→21:55)
[2017-08-09] MEDS: NYSTATIN 100,000 UNITS/GM TOPICAL PWD 15 GM TOP ×2 (08:22→21:57)
[2017-08-09 12:07] LABS: BEDSIDE GLUCOSE 343 MG/DL (80-115)
[2017-08-09 17:11] LABS: BEDSIDE GLUCOSE 338 MG/DL (80-115)
[2017-08-09] MEDS: WARFARIN SOD 7.5 MG TAB PO (18:06)
[2017-08-09 21:33] LABS: BEDSIDE GLUCOSE 290 MG/DL (80-115)
[2017-08-09] MEDS: TAMSULOSIN 0.4 MG CAP PO (21:55)
[2017-08-09] MEDS: FLUCONAZOLE 100 MG TAB PO (21:55)
[2017-08-09] MEDS: LATANOPROST 0.005% OPHTH SOLN 2.5 ML OS (21:56)
[2017-08-10] MEDS: TOBRADEX OPHTH SUSP 2.5 ML OD ×4 (00:49→17:11)
[2017-08-10] MEDS: CIPROFLOXACIN 500 MG TAB PO ×2 (06:27→17:10)
[2017-08-10] MEDS: ENOXAPARIN 80 MG/0.8 ML SYRINGE (J1650) SC ×2 (06:27→17:08)
[2017-08-10 06:53] LABS: BEDSIDE GLUCOSE 276 MG/DL (80-115)
[2017-08-10 07:07] LABS: INR 1.53; PROTHROMBIN TIME 18.8 SECONDS (12.4-14.5)
[2017-08-10] MEDS: HumaLOG INSULIN (NovoLOG) PER UNIT SC ×4 (08:28→21:00)
[2017-08-10 08:50] LABS: HEMATOCRIT 25.6 % (36.0-47.0); HEMOGLOBIN 8.1 g/dl (12.0-16.0); MEAN CORPUSCULAR HGB CONC 31.6 g/dl (32.0-36.5); MEAN CORPUSCULAR VOLUME 91.8 fl (80.0-96.0); PLATELET COUNT, AUTOMATED 360 10^3/uL (150-450); RED BLOOD COUNT 2.79 10^6/uL (4.00-5.40); RED CELL DISTRIBUTION WIDTH 13.7 % (11.5-14.5); WHITE BLOOD COUNT 5.7 10^3/uL (4.0-10.0)
[2017-08-10 09:01] LABS: ANION GAP 4 MEQ/L (8-16); BLOOD UREA NITROGEN 9 MG/DL (7-18); CALCIUM LEVEL 7.6 MG/DL (8.8-10.2); CARBON DIOXIDE LEVEL 33 MEQ/L (21-32); CHLORIDE LEVEL 98 MEQ/L (98-107); CREATININE FOR GFR 0.68 MG/DL (0.55-1.02); GLOMERULAR FILTRATION RATE > 60.0 (>45); GLUCOSE, FASTING 272 MG/DL (80-110); POTASSIUM SERUM 4.6 MEQ/L (3.5-5.1); SODIUM LEVEL 135 MEQ/L (136-145)
[2017-08-10] MEDS: GABAPENTIN 300 MG CAP PO ×2 (10:15→21:56)
[2017-08-10] MEDS: PANTOPRAZOLE 40MG TAB (PROTONIX) PO (10:15)
[2017-08-10] MEDS: guaiFENesin ER 600 MG TAB PO ×2 (10:15→21:56)
[2017-08-10] MEDS: CYCLOPENTOLATE 1% OPHTH SOLN 2 ML BTL OD ×2 (10:15→21:00)
[2017-08-10] MEDS: prednisoLONE ACET 1% OPHTH SUSP 5ML OD ×3 (10:16→21:57)
[2017-08-10] MEDS: BRIMONIDINE 0.15% OPHTH SOLN 5 ML OS ×3 (10:17→21:58)
[2017-08-10] MEDS: COSOPT OCUMETER PLUS 10ML (DORZOLAMIDE/TIMOLOL) OS ×2 (10:18→21:56)
[2017-08-10] MEDS: NYSTATIN 100,000 UNITS/GM TOPICAL PWD 15 GM TOP ×2 (10:19→21:59)
[2017-08-10 12:22] LABS: BEDSIDE GLUCOSE 199 MG/DL (80-115)
[2017-08-10] MEDS: WARFARIN SOD 2 MG TAB PO (17:10)
[2017-08-10 20:53] LABS: BEDSIDE GLUCOSE 224 MG/DL (80-115)
[2017-08-10] MEDS: LATANOPROST 0.005% OPHTH SOLN 2.5 ML OS (21:00)
[2017-08-10] MEDS: FLUCONAZOLE 100 MG TAB PO (21:56)
[2017-08-10] MEDS: TAMSULOSIN 0.4 MG CAP PO (21:56)
[2017-08-10] MEDS: ACETAMINOPHEN TAB 650MG DOSE (2X325MG) PO (22:06)
[2017-08-11] MEDS: TOBRADEX OPHTH SUSP 2.5 ML OD (00:32)
[2017-08-11] MEDS: ACETAMINOPHEN TAB 650MG DOSE (2X325MG) PO ×2 (02:40→21:31)
[2017-08-11] MEDS: ENOXAPARIN 80 MG/0.8 ML SYRINGE (J1650) SC ×2 (05:28→18:22)
[2017-08-11] MEDS: CIPROFLOXACIN 500 MG TAB PO ×2 (05:28→18:22)
[2017-08-11 06:30] LABS: INR 1.87; PROTHROMBIN TIME 22.1 SECONDS (12.4-14.5)
[2017-08-11 06:36] LABS: ANION GAP 4 MEQ/L (8-16); BLOOD UREA NITROGEN 9 MG/DL (7-18); CALCIUM LEVEL 7.6 MG/DL (8.8-10.2); CARBON DIOXIDE LEVEL 31 MEQ/L (21-32); CHLORIDE LEVEL 101 MEQ/L (98-107); CREATININE FOR GFR 0.73 MG/DL (0.55-1.02); GLOMERULAR FILTRATION RATE > 60.0 (>45); GLUCOSE, FASTING 245 MG/DL (80-110); POTASSIUM SERUM 4.5 MEQ/L (3.5-5.1); SODIUM LEVEL 136 MEQ/L (136-145)
[2017-08-11] MEDS: HumaLOG INSULIN (NovoLOG) PER UNIT SC ×4 (07:57→21:00)
[2017-08-11] MEDS: PANTOPRAZOLE 40MG TAB (PROTONIX) PO (08:00)
[2017-08-11] MEDS: CYCLOPENTOLATE 1% OPHTH SOLN 2 ML BTL OD (08:00)
[2017-08-11] MEDS: guaiFENesin ER 600 MG TAB PO ×2 (08:00→21:31)
[2017-08-11] MEDS: GABAPENTIN 300 MG CAP PO ×2 (08:00→21:31)
[2017-08-11] MEDS: BRIMONIDINE 0.15% OPHTH SOLN 5 ML OS ×3 (08:02→21:32)
[2017-08-11] MEDS: prednisoLONE ACET 1% OPHTH SUSP 5ML OD ×3 (08:02→21:31)
[2017-08-11] MEDS: COSOPT OCUMETER PLUS 10ML (DORZOLAMIDE/TIMOLOL) OS ×2 (08:03→21:32)
[2017-08-11] MEDS: NYSTATIN 100,000 UNITS/GM TOPICAL PWD 15 GM TOP ×2 (08:04→21:00)
[2017-08-11 08:35] LABS: HEMATOCRIT 26.3 % (36.0-47.0); HEMOGLOBIN 8.6 g/dl (12.0-16.0); MEAN CORPUSCULAR HEMOGLOBIN 29.3 pg (27.0-33.0); MEAN CORPUSCULAR HGB CONC 32.7 g/dl (32.0-36.5); MEAN CORPUSCULAR VOLUME 89.5 fl (80.0-96.0); PLATELET COUNT, AUTOMATED 325 10^3/uL (150-450); RED BLOOD COUNT 2.94 10^6/uL (4.00-5.40); RED CELL DISTRIBUTION WIDTH 13.9 % (11.5-14.5); WHITE BLOOD COUNT 8.7 10^3/uL (4.0-10.0)
[2017-08-11 11:21] LABS: BEDSIDE GLUCOSE 224 MG/DL (80-115)
[2017-08-11 15:06] LABS: BEDSIDE GLUCOSE 180 MG/DL (80-115)
[2017-08-11 16:34] LABS: BEDSIDE GLUCOSE 228 MG/DL (80-115)
[2017-08-11] MEDS: WARFARIN SOD 2 MG TAB PO (18:24)
[2017-08-11] MEDS: NORCO, ANEXSIA 5/325MG TABLET (HYDROcodone/ACETAMINOPHEN) PO (18:34)
[2017-08-11 20:22] LABS: BEDSIDE GLUCOSE 213 MG/DL (80-115)
[2017-08-11] MEDS: TAMSULOSIN 0.4 MG CAP PO (21:31)
[2017-08-11] MEDS: LATANOPROST 0.005% OPHTH SOLN 2.5 ML OS (21:32)
[2017-08-12] MEDS: NORCO, ANEXSIA 5/325MG TABLET (HYDROcodone/ACETAMINOPHEN) PO ×2 (00:51→23:46)
[2017-08-12 05:59] LABS: HEMATOCRIT 25.2 % (36.0-47.0); HEMOGLOBIN 7.9 g/dl (12.0-16.0); MEAN CORPUSCULAR HEMOGLOBIN 28.7 pg (27.0-33.0); MEAN CORPUSCULAR HGB CONC 31.3 g/dl (32.0-36.5); MEAN CORPUSCULAR VOLUME 91.6 fl (80.0-96.0); PLATELET COUNT, AUTOMATED 343 10^3/uL (150-450); RED BLOOD COUNT 2.75 10^6/uL (4.00-5.40); RED CELL DISTRIBUTION WIDTH 13.9 % (11.5-14.5); WHITE BLOOD COUNT 7.8 10^3/uL (4.0-10.0)
[2017-08-12 06:11] LABS: INR 2.03; PROTHROMBIN TIME 23.6 SECONDS (12.4-14.5)
[2017-08-12 06:24] LABS: ANION GAP 4 MEQ/L (8-16); BLOOD UREA NITROGEN 8 MG/DL (7-18); CALCIUM LEVEL 7.5 MG/DL (8.8-10.2); CARBON DIOXIDE LEVEL 31 MEQ/L (21-32); CHLORIDE LEVEL 101 MEQ/L (98-107); CREATININE FOR GFR 0.61 MG/DL (0.55-1.02); GLOMERULAR FILTRATION RATE > 60.0 (>45); GLUCOSE, FASTING 213 MG/DL (80-110); POTASSIUM SERUM 4.7 MEQ/L (3.5-5.1); SODIUM LEVEL 136 MEQ/L (136-145)
[2017-08-12] MEDS: CIPROFLOXACIN 500 MG TAB PO ×2 (06:28→18:46)
[2017-08-12] MEDS: ENOXAPARIN 80 MG/0.8 ML SYRINGE (J1650) SC (06:29)
[2017-08-12] MEDS: HumaLOG INSULIN (NovoLOG) PER UNIT SC ×4 (10:32→21:00)
[2017-08-12] MEDS: GABAPENTIN 300 MG CAP PO ×2 (10:32→23:45)
[2017-08-12] MEDS: guaiFENesin ER 600 MG TAB PO ×2 (10:32→23:45)
[2017-08-12] MEDS: PANTOPRAZOLE 40MG TAB (PROTONIX) PO (10:32)
[2017-08-12] MEDS: prednisoLONE ACET 1% OPHTH SUSP 5ML OD ×3 (10:33→23:47)
[2017-08-12] MEDS: COSOPT OCUMETER PLUS 10ML (DORZOLAMIDE/TIMOLOL) OS ×2 (10:34→23:47)
[2017-08-12] MEDS: NYSTATIN 100,000 UNITS/GM TOPICAL PWD 15 GM TOP ×2 (10:34→21:00)
[2017-08-12] MEDS: BRIMONIDINE 0.15% OPHTH SOLN 5 ML OS ×3 (10:34→23:46)
[2017-08-12 12:22] LABS: BEDSIDE GLUCOSE 222 MG/DL (80-115)
[2017-08-12 12:57] LABS: REASON FOR REVIEW COMPREHENSIVE REVIEW; SLIDE REVIEW Report; SOURCE PERIPHERAL SMEAR
[2017-08-12] MEDS: ESCITALOPRAM OXALATE 10 MG TAB (LEXAPRO) PO (13:12)
[2017-08-12 13:42] LABS: FERRITIN 157 NG/ML (8-252); IRON (FE) 28 UG/DL (50-170); PERCENT SATURATION 12.7 % (13.2-45.0); TOTAL IRON BINDING CAPACITY 221 UG/DL (250-450)
[2017-08-12 16:30] LABS: IMMEDIATE SPIN CROSSMATCH 1 2
[2017-08-12] MEDS: ACETAMINOPHEN TAB 650MG DOSE (2X325MG) PO (16:46)
[2017-08-12] MEDS: WARFARIN SOD 2 MG TAB PO (17:00)
[2017-08-12] MEDS: ONDANSETRON 4MG/2ML VIAL (J2405) IV ×2 (18:46→23:45)
[2017-08-12 19:18] LABS: BEDSIDE GLUCOSE 214 MG/DL (80-115)
[2017-08-12] MEDS: LATANOPROST 0.005% OPHTH SOLN 2.5 ML OS (21:00)
[2017-08-12] MEDS: TAMSULOSIN 0.4 MG CAP PO (23:45)
[2017-08-13] MEDS: CIPROFLOXACIN 500 MG TAB PO ×2 (06:06→17:09)
[2017-08-13 06:19] LABS: HEMATOCRIT 33.1 % (36.0-47.0); MEAN CORPUSCULAR HEMOGLOBIN 29.5 pg (27.0-33.0); MEAN CORPUSCULAR HGB CONC 32.9 g/dl (32.0-36.5); MEAN CORPUSCULAR VOLUME 89.5 fl (80.0-96.0); PLATELET COUNT, AUTOMATED 372 10^3/uL (150-450); RED CELL DISTRIBUTION WIDTH 14.2 % (11.5-14.5); WHITE BLOOD COUNT 9.3 10^3/uL (4.0-10.0)
[2017-08-13 06:21] LABS: HEMOGLOBIN 10.9 g/dl (12.0-16.0)
[2017-08-13 06:29] LABS: INR 2.39
[2017-08-13 06:37] LABS: ANION GAP 3 MEQ/L (8-16); BLOOD UREA NITROGEN 7 MG/DL (7-18); CALCIUM LEVEL 7.5 MG/DL (8.8-10.2); CARBON DIOXIDE LEVEL 31 MEQ/L (21-32); CHLORIDE LEVEL 100 MEQ/L (98-107); CREATININE FOR GFR 0.59 MG/DL (0.55-1.02); GLOMERULAR FILTRATION RATE > 60.0 (>45); GLUCOSE, FASTING 201 MG/DL (80-110); POTASSIUM SERUM 5.1 MEQ/L (3.5-5.1); SODIUM LEVEL 134 MEQ/L (136-145)
[2017-08-13] MEDS: ESCITALOPRAM OXALATE 10 MG TAB (LEXAPRO) PO (10:28)
[2017-08-13] MEDS: guaiFENesin ER 600 MG TAB PO ×2 (10:28→22:32)
[2017-08-13] MEDS: GABAPENTIN 300 MG CAP PO ×2 (10:28→22:32)
[2017-08-13] MEDS: PANTOPRAZOLE 40MG TAB (PROTONIX) PO (10:28)
[2017-08-13] MEDS: HumaLOG INSULIN (NovoLOG) PER UNIT SC ×4 (10:30→21:00)
[2017-08-13] MEDS: prednisoLONE ACET 1% OPHTH SUSP 5ML OD ×3 (10:31→22:34)
[2017-08-13] MEDS: COSOPT OCUMETER PLUS 10ML (DORZOLAMIDE/TIMOLOL) OS ×2 (10:32→22:33)
[2017-08-13] MEDS: BRIMONIDINE 0.15% OPHTH SOLN 5 ML OS ×3 (10:32→22:33)
[2017-08-13] MEDS: NYSTATIN 100,000 UNITS/GM TOPICAL PWD 15 GM TOP ×2 (10:33→22:34)
[2017-08-13 11:54] LABS: BEDSIDE GLUCOSE 250 MG/DL (80-115)
[2017-08-13 12:14] LABS: BEDSIDE GLUCOSE 231 MG/DL (80-115)
[2017-08-13] MEDS: WARFARIN SOD 2 MG TAB PO (17:09)
[2017-08-13] MEDS: LATANOPROST 0.005% OPHTH SOLN 2.5 ML OS (21:00)
[2017-08-13 21:16] LABS: BEDSIDE GLUCOSE 154 MG/DL (80-115)
[2017-08-13 21:16] LABS: BEDSIDE GLUCOSE 188 MG/DL (80-115)
[2017-08-13] MEDS: TAMSULOSIN 0.4 MG CAP PO (22:32)
[2017-08-14] MEDS: CIPROFLOXACIN 500 MG TAB PO ×2 (06:09→18:03)
[2017-08-14 06:42] LABS: HEMATOCRIT 35.4 % (36.0-47.0); HEMOGLOBIN 11.6 g/dl (12.0-16.0); MEAN CORPUSCULAR HEMOGLOBIN 29.8 pg (27.0-33.0); MEAN CORPUSCULAR HGB CONC 32.8 g/dl (32.0-36.5); PLATELET COUNT, AUTOMATED 322 10^3/uL (150-450); RED BLOOD COUNT 3.89 10^6/uL (4.00-5.40); RED CELL DISTRIBUTION WIDTH 14.6 % (11.5-14.5); WHITE BLOOD COUNT 8.4 10^3/uL (4.0-10.0)
[2017-08-14] MEDS: COSOPT OCUMETER PLUS 10ML (DORZOLAMIDE/TIMOLOL) OS ×2 (09:00→21:00)
[2017-08-14] MEDS: ESCITALOPRAM OXALATE 10 MG TAB (LEXAPRO) PO (09:26)
[2017-08-14] MEDS: PANTOPRAZOLE 40MG TAB (PROTONIX) PO (09:26)
[2017-08-14] MEDS: guaiFENesin ER 600 MG TAB PO ×2 (09:27→21:35)
[2017-08-14] MEDS: NYSTATIN 100,000 UNITS/GM TOPICAL PWD 15 GM TOP ×2 (09:27→21:42)
[2017-08-14] MEDS: GABAPENTIN 300 MG CAP PO ×2 (09:27→21:35)
[2017-08-14] MEDS: HumaLOG INSULIN (NovoLOG) PER UNIT SC ×4 (09:27→21:00)
[2017-08-14] MEDS: BRIMONIDINE 0.15% OPHTH SOLN 5 ML OS ×4 (09:28→21:00)
[2017-08-14] MEDS: prednisoLONE ACET 1% OPHTH SUSP 5ML OD ×4 (09:28→21:00)
[2017-08-14 09:35] LABS: BEDSIDE GLUCOSE 226 MG/DL (80-115)
[2017-08-14 12:15] LABS: BEDSIDE GLUCOSE 159 MG/DL (80-115)
[2017-08-14 12:38] LABS: PROTHROMBIN TIME 30.7 SECONDS (12.4-14.5)
[2017-08-14 12:45] LABS: ANION GAP 6 MEQ/L (8-16); BLOOD UREA NITROGEN 6 MG/DL (7-18); CALCIUM LEVEL 7.4 MG/DL (8.8-10.2); CARBON DIOXIDE LEVEL 28 MEQ/L (21-32); CHLORIDE LEVEL 101 MEQ/L (98-107); CREATININE FOR GFR 0.72 MG/DL (0.55-1.02); GLOMERULAR FILTRATION RATE > 60.0 (>45); GLUCOSE, FASTING 171 MG/DL (80-110); POTASSIUM SERUM 4.7 MEQ/L (3.5-5.1); SODIUM LEVEL 135 MEQ/L (136-145)
[2017-08-14 16:57] LABS: BEDSIDE GLUCOSE 174 MG/DL (80-115)
[2017-08-14] MEDS: WARFARIN SOD 2 MG TAB PO (18:03)
[2017-08-14] MEDS: LATANOPROST 0.005% OPHTH SOLN 2.5 ML OS (21:00)
[2017-08-14 21:12] LABS: BEDSIDE GLUCOSE 195 MG/DL (80-115)
[2017-08-14] MEDS: TAMSULOSIN 0.4 MG CAP PO (21:35)
[2017-08-15] MEDS: CIPROFLOXACIN 500 MG TAB PO ×2 (05:25→17:36)
[2017-08-15 07:23] LABS: BEDSIDE GLUCOSE 203 MG/DL (80-115)
[2017-08-15 07:59] LABS: INR 2.29; PROTHROMBIN TIME 26.1 SECONDS (12.4-14.5)
[2017-08-15 08:02] LABS: HEMATOCRIT 34.8 % (36.0-47.0); HEMOGLOBIN 11.4 g/dl (12.0-16.0); MEAN CORPUSCULAR HEMOGLOBIN 29.6 pg (27.0-33.0); MEAN CORPUSCULAR HGB CONC 32.8 g/dl (32.0-36.5); MEAN CORPUSCULAR VOLUME 90.4 fl (80.0-96.0); PLATELET COUNT, AUTOMATED 495 10^3/uL (150-450); RED BLOOD COUNT 3.85 10^6/uL (4.00-5.40); RED CELL DISTRIBUTION WIDTH 14.7 % (11.5-14.5); WHITE BLOOD COUNT 6.7 10^3/uL (4.0-10.0)
[2017-08-15 08:18] LABS: ANION GAP 7 MEQ/L (8-16); BLOOD UREA NITROGEN 6 MG/DL (7-18); CALCIUM LEVEL 7.6 MG/DL (8.8-10.2); CARBON DIOXIDE LEVEL 28 MEQ/L (21-32); CHLORIDE LEVEL 100 MEQ/L (98-107); CREATININE FOR GFR 0.68 MG/DL (0.55-1.02); GLOMERULAR FILTRATION RATE > 60.0 (>45); GLUCOSE, FASTING 224 MG/DL (80-110); POTASSIUM SERUM 4.7 MEQ/L (3.5-5.1); SODIUM LEVEL 135 MEQ/L (136-145)
[2017-08-15] MEDS: prednisoLONE ACET 1% OPHTH SUSP 5ML OD ×3 (09:00→20:12)
[2017-08-15] MEDS: BRIMONIDINE 0.15% OPHTH SOLN 5 ML OS ×3 (09:00→20:12)
[2017-08-15] MEDS: COSOPT OCUMETER PLUS 10ML (DORZOLAMIDE/TIMOLOL) OS ×2 (09:00→20:12)
[2017-08-15] MEDS: NYSTATIN 100,000 UNITS/GM TOPICAL PWD 15 GM TOP ×2 (09:00→20:14)
[2017-08-15] MEDS: GABAPENTIN 300 MG CAP PO ×2 (09:21→20:13)
[2017-08-15] MEDS: ESCITALOPRAM OXALATE 10 MG TAB (LEXAPRO) PO (09:21)
[2017-08-15] MEDS: guaiFENesin ER 600 MG TAB PO ×2 (09:21→20:13)
[2017-08-15] MEDS: PANTOPRAZOLE 40MG TAB (PROTONIX) PO (09:21)
[2017-08-15] MEDS: HumaLOG INSULIN (NovoLOG) PER UNIT SC ×4 (09:21→19:47)
[2017-08-15 11:48] LABS: BEDSIDE GLUCOSE 248 MG/DL (80-115)
[2017-08-15] MEDS: WARFARIN SOD 2 MG TAB PO (16:18)
[2017-08-15 17:02] LABS: BEDSIDE GLUCOSE 190 MG/DL (80-115)
[2017-08-15] MEDS: LATANOPROST 0.005% OPHTH SOLN 2.5 ML OS (20:12)
[2017-08-15] MEDS: TAMSULOSIN 0.4 MG CAP PO (20:13)
[2017-08-15 20:24] LABS: BEDSIDE GLUCOSE 212 MG/DL (80-115)
[2017-08-16] MEDS: CIPROFLOXACIN 500 MG TAB PO ×2 (05:15→17:16)
[2017-08-16 07:07] LABS: HEMATOCRIT 34.1 % (36.0-47.0); HEMOGLOBIN 11.1 g/dl (12.0-16.0); MEAN CORPUSCULAR HEMOGLOBIN 29.8 pg (27.0-33.0); MEAN CORPUSCULAR HGB CONC 32.6 g/dl (32.0-36.5); MEAN CORPUSCULAR VOLUME 91.4 fl (80.0-96.0); PLATELET COUNT, AUTOMATED 460 10^3/uL (150-450); RED BLOOD COUNT 3.73 10^6/uL (4.00-5.40); RED CELL DISTRIBUTION WIDTH 14.5 % (11.5-14.5); WHITE BLOOD COUNT 6.8 10^3/uL (4.0-10.0)
[2017-08-16 07:09] LABS: INR 1.89; PROTHROMBIN TIME 22.3 SECONDS (12.4-14.5)
[2017-08-16 07:32] LABS: ANION GAP 4 MEQ/L (8-16); BLOOD UREA NITROGEN 5 MG/DL (7-18); CALCIUM LEVEL 7.9 MG/DL (8.8-10.2); CARBON DIOXIDE LEVEL 30 MEQ/L (21-32); CHLORIDE LEVEL 100 MEQ/L (98-107); CREATININE FOR GFR 0.57 MG/DL (0.55-1.02); GLOMERULAR FILTRATION RATE > 60.0 (>45); GLUCOSE, FASTING 195 MG/DL (80-110); POTASSIUM SERUM 4.6 MEQ/L (3.5-5.1); SODIUM LEVEL 134 MEQ/L (136-145)
[2017-08-16] MEDS: ESCITALOPRAM OXALATE 10 MG TAB (LEXAPRO) PO (08:07)
[2017-08-16] MEDS: GABAPENTIN 300 MG CAP PO ×2 (08:07→20:58)
[2017-08-16] MEDS: guaiFENesin ER 600 MG TAB PO ×2 (08:07→20:58)
[2017-08-16] MEDS: PANTOPRAZOLE 40MG TAB (PROTONIX) PO (08:07)
[2017-08-16] MEDS: NYSTATIN 100,000 UNITS/GM TOPICAL PWD 15 GM TOP ×2 (08:08→21:00)
[2017-08-16] MEDS: COSOPT OCUMETER PLUS 10ML (DORZOLAMIDE/TIMOLOL) OS ×2 (08:08→20:59)
[2017-08-16] MEDS: prednisoLONE ACET 1% OPHTH SUSP 5ML OD ×3 (08:08→20:59)
[2017-08-16] MEDS: HumaLOG INSULIN (NovoLOG) PER UNIT SC ×4 (08:08→20:58)
[2017-08-16] MEDS: BRIMONIDINE 0.15% OPHTH SOLN 5 ML OS ×3 (08:08→20:59)
[2017-08-16 12:04] LABS: BEDSIDE GLUCOSE 228 MG/DL (80-115)
[2017-08-16] MEDS: WARFARIN SOD 2 MG TAB PO (17:16)
[2017-08-16 17:21] LABS: BEDSIDE GLUCOSE 190 MG/DL (80-115)
[2017-08-16 20:52] LABS: BEDSIDE GLUCOSE 216 MG/DL (80-115)
[2017-08-16] MEDS: TAMSULOSIN 0.4 MG CAP PO (20:58)
[2017-08-16] MEDS: LATANOPROST 0.005% OPHTH SOLN 2.5 ML OS (21:00)
[2017-08-16] MEDS: NORCO, ANEXSIA 5/325MG TABLET (HYDROcodone/ACETAMINOPHEN) PO (22:35)
[2017-08-17] MEDS: CIPROFLOXACIN 500 MG TAB PO ×2 (05:55→17:02)
[2017-08-17 06:35] LABS: HEMATOCRIT 34.4 % (36.0-47.0); HEMOGLOBIN 11.1 g/dl (12.0-16.0); MEAN CORPUSCULAR HEMOGLOBIN 29.5 pg (27.0-33.0); MEAN CORPUSCULAR HGB CONC 32.3 g/dl (32.0-36.5); MEAN CORPUSCULAR VOLUME 91.5 fl (80.0-96.0); PLATELET COUNT, AUTOMATED 494 10^3/uL (150-450); RED BLOOD COUNT 3.76 10^6/uL (4.00-5.40); RED CELL DISTRIBUTION WIDTH 14.2 % (11.5-14.5); WHITE BLOOD COUNT 7.4 10^3/uL (4.0-10.0)
[2017-08-17 06:50] LABS: ANION GAP 6 MEQ/L (8-16); BLOOD UREA NITROGEN 7 MG/DL (7-18); CALCIUM LEVEL 7.9 MG/DL (8.8-10.2); CARBON DIOXIDE LEVEL 28 MEQ/L (21-32); CHLORIDE LEVEL 99 MEQ/L (98-107); CREATININE FOR GFR 0.66 MG/DL (0.55-1.02); GLOMERULAR FILTRATION RATE > 60.0 (>45); GLUCOSE, FASTING 229 MG/DL (80-110); POTASSIUM SERUM 4.7 MEQ/L (3.5-5.1); SODIUM LEVEL 133 MEQ/L (136-145)
[2017-08-17 06:51] LABS: PROTHROMBIN TIME 23.4 SECONDS (12.4-14.5)
[2017-08-17] MEDS: HumaLOG INSULIN (NovoLOG) PER UNIT SC ×4 (07:30→20:56)
[2017-08-17] MEDS: PANTOPRAZOLE 40MG TAB (PROTONIX) PO (09:09)
[2017-08-17] MEDS: guaiFENesin ER 600 MG TAB PO ×2 (09:09→20:56)
[2017-08-17] MEDS: BRIMONIDINE 0.15% OPHTH SOLN 5 ML OS ×3 (09:09→20:59)
[2017-08-17] MEDS: ESCITALOPRAM OXALATE 10 MG TAB (LEXAPRO) PO (09:09)
[2017-08-17] MEDS: GABAPENTIN 300 MG CAP PO ×2 (09:09→20:56)
[2017-08-17] MEDS: COSOPT OCUMETER PLUS 10ML (DORZOLAMIDE/TIMOLOL) OS ×2 (09:09→20:57)
[2017-08-17] MEDS: NYSTATIN 100,000 UNITS/GM TOPICAL PWD 15 GM TOP ×2 (09:10→20:58)
[2017-08-17] MEDS: prednisoLONE ACET 1% OPHTH SUSP 5ML OD ×3 (09:10→21:00)
[2017-08-17 11:47] LABS: BEDSIDE GLUCOSE 314 MG/DL (80-115)
[2017-08-17 16:51] LABS: BEDSIDE GLUCOSE 113 MG/DL (80-115)
[2017-08-17] MEDS: WARFARIN SOD 2 MG TAB PO (17:00)
[2017-08-17] MEDS: MAXITROL OPHTH OINT 3.5 GM OD ×2 (17:01→20:57)
[2017-08-17] MEDS: predniSONE 20 MG TAB PO (17:05)
[2017-08-17] MEDS: TAMSULOSIN 0.4 MG CAP PO (20:55)
[2017-08-17 20:56] LABS: BEDSIDE GLUCOSE 274 MG/DL (80-115)
[2017-08-17] MEDS: LATANOPROST 0.005% OPHTH SOLN 2.5 ML OS (20:59)
[2017-08-18] MEDS: CIPROFLOXACIN 500 MG TAB PO ×2 (05:39→16:56)
[2017-08-18 06:35] LABS: HEMATOCRIT 35.5 % (36.0-47.0); HEMOGLOBIN 11.6 g/dl (12.0-16.0); MEAN CORPUSCULAR HEMOGLOBIN 29.5 pg (27.0-33.0); MEAN CORPUSCULAR HGB CONC 32.7 g/dl (32.0-36.5); MEAN CORPUSCULAR VOLUME 90.3 fl (80.0-96.0); PLATELET COUNT, AUTOMATED 567 10^3/uL (150-450); RED BLOOD COUNT 3.93 10^6/uL (4.00-5.40); RED CELL DISTRIBUTION WIDTH 13.8 % (11.5-14.5); WHITE BLOOD COUNT 8.1 10^3/uL (4.0-10.0)
[2017-08-18 06:56] LABS: ANION GAP 4 MEQ/L (8-16); BLOOD UREA NITROGEN 13 MG/DL (7-18); CARBON DIOXIDE LEVEL 29 MEQ/L (21-32); CHLORIDE LEVEL 99 MEQ/L (98-107); CREATININE FOR GFR 0.72 MG/DL (0.55-1.02); GLOMERULAR FILTRATION RATE > 60.0 (>45); GLUCOSE, FASTING 353 MG/DL (80-110); POTASSIUM SERUM 5.1 MEQ/L (3.5-5.1); SODIUM LEVEL 132 MEQ/L (136-145)
[2017-08-18] MEDS: GABAPENTIN 300 MG CAP PO ×2 (08:54→21:36)
[2017-08-18] MEDS: predniSONE 20 MG TAB PO (08:54)
[2017-08-18] MEDS: HumaLOG INSULIN (NovoLOG) PER UNIT SC ×4 (08:54→21:37)
[2017-08-18] MEDS: ESCITALOPRAM OXALATE 10 MG TAB (LEXAPRO) PO (08:55)
[2017-08-18] MEDS: MAXITROL OPHTH OINT 3.5 GM OD ×4 (08:55→21:40)
[2017-08-18] MEDS: COSOPT OCUMETER PLUS 10ML (DORZOLAMIDE/TIMOLOL) OS ×2 (08:55→21:42)
[2017-08-18] MEDS: BRIMONIDINE 0.15% OPHTH SOLN 5 ML OS ×3 (08:55→21:42)
[2017-08-18] MEDS: guaiFENesin ER 600 MG TAB PO ×2 (08:55→21:36)
[2017-08-18] MEDS: PANTOPRAZOLE 40MG TAB (PROTONIX) PO (08:55)
[2017-08-18] MEDS: NYSTATIN 100,000 UNITS/GM TOPICAL PWD 15 GM TOP ×2 (08:56→21:40)
[2017-08-18] MEDS: prednisoLONE ACET 1% OPHTH SUSP 5ML OD ×3 (08:56→21:40)
[2017-08-18 11:50] LABS: BEDSIDE GLUCOSE 269 MG/DL (80-115)
[2017-08-18 16:46] LABS: BEDSIDE GLUCOSE 297 MG/DL (80-115)
[2017-08-18] MEDS: WARFARIN SOD 2 MG TAB PO (16:56)
[2017-08-18 20:34] LABS: BEDSIDE GLUCOSE 436 MG/DL (80-115)
[2017-08-18] MEDS: TAMSULOSIN 0.4 MG CAP PO (21:36)
[2017-08-18] MEDS: NORCO, ANEXSIA 5/325MG TABLET (HYDROcodone/ACETAMINOPHEN) PO (21:39)
[2017-08-18] MEDS: LATANOPROST 0.005% OPHTH SOLN 2.5 ML OS (21:41)
[2017-08-19] MEDS: CIPROFLOXACIN 500 MG TAB PO ×2 (06:03→18:19)
[2017-08-19 06:07] LABS: HEMATOCRIT 34.3 % (36.0-47.0); MEAN CORPUSCULAR HEMOGLOBIN 29.3 pg (27.0-33.0); MEAN CORPUSCULAR HGB CONC 32.1 g/dl (32.0-36.5); MEAN CORPUSCULAR VOLUME 91.2 fl (80.0-96.0); PLATELET COUNT, AUTOMATED 559 10^3/uL (150-450); RED BLOOD COUNT 3.76 10^6/uL (4.00-5.40)
[2017-08-19 06:24] LABS: ANION GAP 6 MEQ/L (8-16); BLOOD UREA NITROGEN 22 MG/DL (7-18); CALCIUM LEVEL 8.1 MG/DL (8.8-10.2); CARBON DIOXIDE LEVEL 28 MEQ/L (21-32); CHLORIDE LEVEL 100 MEQ/L (98-107); CREATININE FOR GFR 0.73 MG/DL (0.55-1.02); GLOMERULAR FILTRATION RATE > 60.0 (>45); GLUCOSE, FASTING 310 MG/DL (80-110); POTASSIUM SERUM 4.7 MEQ/L (3.5-5.1); SODIUM LEVEL 134 MEQ/L (136-145)
[2017-08-19] MEDS: ESCITALOPRAM OXALATE 10 MG TAB (LEXAPRO) PO (08:13)
[2017-08-19] MEDS: guaiFENesin ER 600 MG TAB PO ×2 (08:13→22:18)
[2017-08-19] MEDS: HumaLOG INSULIN (NovoLOG) PER UNIT SC ×4 (08:13→22:19)
[2017-08-19] MEDS: predniSONE 20 MG TAB PO (08:14)
[2017-08-19] MEDS: PANTOPRAZOLE 40MG TAB (PROTONIX) PO (08:14)
[2017-08-19] MEDS: GABAPENTIN 300 MG CAP PO ×2 (08:14→22:18)
[2017-08-19] MEDS: MAXITROL OPHTH OINT 3.5 GM OD ×4 (08:14→22:22)
[2017-08-19] MEDS: BRIMONIDINE 0.15% OPHTH SOLN 5 ML OS ×3 (08:14→22:22)
[2017-08-19] MEDS: COSOPT OCUMETER PLUS 10ML (DORZOLAMIDE/TIMOLOL) OS ×2 (08:15→22:22)
[2017-08-19] MEDS: prednisoLONE ACET 1% OPHTH SUSP 5ML OD ×3 (08:16→22:23)
[2017-08-19] MEDS: NYSTATIN 100,000 UNITS/GM TOPICAL PWD 15 GM TOP ×2 (08:22→22:21)
[2017-08-19 11:44] LABS: BEDSIDE GLUCOSE 248 MG/DL (80-115)
[2017-08-19 16:38] LABS: BEDSIDE GLUCOSE 370 MG/DL (80-115)
[2017-08-19] MEDS: WARFARIN SOD 2 MG TAB PO (18:20)
[2017-08-19 20:33] LABS: BEDSIDE GLUCOSE 387 MG/DL (80-115)
[2017-08-19] MEDS: TAMSULOSIN 0.4 MG CAP PO (22:18)
[2017-08-19] MEDS: LEVEMIR (INSULIN DETEMIR) 1 UNITS/0.01ML SC (22:19)
[2017-08-19] MEDS: NORCO, ANEXSIA 5/325MG TABLET (HYDROcodone/ACETAMINOPHEN) PO (22:21)
[2017-08-19] MEDS: LATANOPROST 0.005% OPHTH SOLN 2.5 ML OS (22:22)
[2017-08-20] MEDS: CIPROFLOXACIN 500 MG TAB PO ×2 (05:52→17:49)
[2017-08-20] MEDS: HumaLOG INSULIN (NovoLOG) PER UNIT SC ×4 (09:33→20:55)
[2017-08-20] MEDS: LEVEMIR (INSULIN DETEMIR) 1 UNITS/0.01ML SC ×2 (09:33→20:55)
[2017-08-20] MEDS: predniSONE 20 MG TAB PO (09:34)
[2017-08-20] MEDS: GABAPENTIN 300 MG CAP PO ×2 (09:34→20:54)
[2017-08-20] MEDS: PANTOPRAZOLE 40MG TAB (PROTONIX) PO (09:34)
[2017-08-20] MEDS: guaiFENesin ER 600 MG TAB PO ×2 (09:34→20:54)
[2017-08-20] MEDS: ESCITALOPRAM OXALATE 10 MG TAB (LEXAPRO) PO (09:34)
[2017-08-20] MEDS: NYSTATIN 100,000 UNITS/GM TOPICAL PWD 15 GM TOP ×2 (09:35→20:58)
[2017-08-20] MEDS: COSOPT OCUMETER PLUS 10ML (DORZOLAMIDE/TIMOLOL) OS ×2 (09:35→20:57)
[2017-08-20] MEDS: BRIMONIDINE 0.15% OPHTH SOLN 5 ML OS ×3 (09:35→20:57)
[2017-08-20] MEDS: MAXITROL OPHTH OINT 3.5 GM OD ×4 (09:35→20:56)
[2017-08-20] MEDS: prednisoLONE ACET 1% OPHTH SUSP 5ML OD ×3 (09:35→20:55)
[2017-08-20 10:58] LABS: BEDSIDE GLUCOSE 138 MG/DL (80-115)
[2017-08-20 11:57] LABS: BEDSIDE GLUCOSE 108 MG/DL (80-115)
[2017-08-20 16:47] LABS: BEDSIDE GLUCOSE 248 MG/DL (80-115)
[2017-08-20] MEDS: WARFARIN SOD 2 MG TAB PO (17:49)
[2017-08-20 20:41] LABS: BEDSIDE GLUCOSE 321 MG/DL (80-115)
[2017-08-20] MEDS: TAMSULOSIN 0.4 MG CAP PO (20:54)
[2017-08-20] MEDS: NORCO, ANEXSIA 5/325MG TABLET (HYDROcodone/ACETAMINOPHEN) PO (20:54)
[2017-08-20] MEDS: LATANOPROST 0.005% OPHTH SOLN 2.5 ML OS (20:56)
[2017-08-21] MEDS: CIPROFLOXACIN 500 MG TAB PO ×2 (05:22→17:18)
[2017-08-21 08:30] LABS: BEDSIDE GLUCOSE 258 MG/DL (80-115)
[2017-08-21] MEDS: GABAPENTIN 300 MG CAP PO ×2 (08:50→20:41)
[2017-08-21] MEDS: HumaLOG INSULIN (NovoLOG) PER UNIT SC ×4 (08:50→20:42)
[2017-08-21] MEDS: PANTOPRAZOLE 40MG TAB (PROTONIX) PO (08:50)
[2017-08-21] MEDS: predniSONE 20 MG TAB PO (08:50)
[2017-08-21] MEDS: LEVEMIR (INSULIN DETEMIR) 1 UNITS/0.01ML SC ×2 (08:50→20:42)
[2017-08-21] MEDS: guaiFENesin ER 600 MG TAB PO ×2 (08:50→20:41)
[2017-08-21] MEDS: ESCITALOPRAM OXALATE 10 MG TAB (LEXAPRO) PO (08:50)
[2017-08-21] MEDS: MAXITROL OPHTH OINT 3.5 GM OD ×4 (08:51→20:43)
[2017-08-21] MEDS: BRIMONIDINE 0.15% OPHTH SOLN 5 ML OS ×3 (08:51→20:45)
[2017-08-21] MEDS: prednisoLONE ACET 1% OPHTH SUSP 5ML OD ×2 (08:51→17:18)
[2017-08-21] MEDS: COSOPT OCUMETER PLUS 10ML (DORZOLAMIDE/TIMOLOL) OS ×2 (08:51→20:44)
[2017-08-21] MEDS: NYSTATIN 100,000 UNITS/GM TOPICAL PWD 15 GM TOP ×2 (08:52→20:45)
[2017-08-21 11:55] LABS: BEDSIDE GLUCOSE 230 MG/DL (80-115)
[2017-08-21 13:36] LABS: INR 1.44; PROTHROMBIN TIME 17.9 SECONDS (12.4-14.5)
[2017-08-21 16:49] LABS: BEDSIDE GLUCOSE 260 MG/DL (80-115)
[2017-08-21] MEDS: WARFARIN SOD 2 MG TAB PO (17:18)
[2017-08-21 20:26] LABS: BEDSIDE GLUCOSE 350 MG/DL (80-115)
[2017-08-21] MEDS: NORCO, ANEXSIA 5/325MG TABLET (HYDROcodone/ACETAMINOPHEN) PO (20:41)
[2017-08-21] MEDS: TAMSULOSIN 0.4 MG CAP PO (20:41)
[2017-08-21] MEDS: LATANOPROST 0.005% OPHTH SOLN 2.5 ML OS (20:43)
[2017-08-22] MEDS: CIPROFLOXACIN 500 MG TAB PO ×2 (06:13→17:15)
[2017-08-22] MEDS: ESCITALOPRAM OXALATE 10 MG TAB (LEXAPRO) PO (07:58)
[2017-08-22] MEDS: HumaLOG INSULIN (NovoLOG) PER UNIT SC ×4 (07:58→20:42)
[2017-08-22] MEDS: guaiFENesin ER 600 MG TAB PO ×2 (07:58→20:41)
[2017-08-22] MEDS: LEVEMIR (INSULIN DETEMIR) 1 UNITS/0.01ML SC ×2 (07:59→20:42)
[2017-08-22] MEDS: predniSONE 20 MG TAB PO (07:59)
[2017-08-22] MEDS: GABAPENTIN 300 MG CAP PO ×2 (07:59→20:41)
[2017-08-22] MEDS: PANTOPRAZOLE 40MG TAB (PROTONIX) PO (07:59)
[2017-08-22] MEDS: MAXITROL OPHTH OINT 3.5 GM OD ×4 (07:59→20:43)
[2017-08-22] MEDS: NYSTATIN 100,000 UNITS/GM TOPICAL PWD 15 GM TOP ×2 (08:00→20:43)
[2017-08-22] MEDS: COSOPT OCUMETER PLUS 10ML (DORZOLAMIDE/TIMOLOL) OS ×2 (08:00→20:43)
[2017-08-22] MEDS: BRIMONIDINE 0.15% OPHTH SOLN 5 ML OS ×3 (08:00→20:43)
[2017-08-22 11:40] LABS: BEDSIDE GLUCOSE 162 MG/DL (80-115)
[2017-08-22 11:49] LABS: BEDSIDE GLUCOSE 214 MG/DL (80-115)
[2017-08-22 17:14] LABS: BEDSIDE GLUCOSE 316 MG/DL (80-115)
[2017-08-22] MEDS: WARFARIN SOD 2 MG TAB PO (17:15)
[2017-08-22 20:21] LABS: BEDSIDE GLUCOSE 303 MG/DL (80-115)
[2017-08-22] MEDS: TAMSULOSIN 0.4 MG CAP PO (20:41)
[2017-08-22] MEDS: NORCO, ANEXSIA 5/325MG TABLET (HYDROcodone/ACETAMINOPHEN) PO (20:41)
[2017-08-22] MEDS: LATANOPROST 0.005% OPHTH SOLN 2.5 ML OS (20:43)
[2017-08-23] MEDS: CIPROFLOXACIN 500 MG TAB PO ×2 (05:09→17:08)
[2017-08-23 06:13] LABS: BEDSIDE GLUCOSE 182 MG/DL (80-115)
[2017-08-23] MEDS: ESCITALOPRAM OXALATE 10 MG TAB (LEXAPRO) PO (07:56)
[2017-08-23] MEDS: PANTOPRAZOLE 40MG TAB (PROTONIX) PO (07:57)
[2017-08-23] MEDS: GABAPENTIN 300 MG CAP PO ×2 (07:57→21:32)
[2017-08-23] MEDS: guaiFENesin ER 600 MG TAB PO ×2 (07:57→21:32)
[2017-08-23] MEDS: predniSONE 20 MG TAB PO (07:57)
[2017-08-23] MEDS: HumaLOG INSULIN (NovoLOG) PER UNIT SC ×4 (07:58→21:33)
[2017-08-23] MEDS: LEVEMIR (INSULIN DETEMIR) 1 UNITS/0.01ML SC ×2 (07:58→21:32)
[2017-08-23] MEDS: NYSTATIN 100,000 UNITS/GM TOPICAL PWD 15 GM TOP ×2 (07:59→21:33)
[2017-08-23] MEDS: BRIMONIDINE 0.15% OPHTH SOLN 5 ML OS ×3 (08:00→21:34)
[2017-08-23] MEDS: COSOPT OCUMETER PLUS 10ML (DORZOLAMIDE/TIMOLOL) OS ×2 (08:00→21:34)
[2017-08-23] MEDS: MAXITROL OPHTH OINT 3.5 GM OD ×4 (08:00→21:00)
[2017-08-23] MEDS: LATANOPROST 0.005% OPHTH SOLN 2.5 ML OS (08:01)
[2017-08-23 10:44] LABS: INR 1.31; PROTHROMBIN TIME 16.6 SECONDS (12.4-14.5)
[2017-08-23 11:59] LABS: BEDSIDE GLUCOSE 266 MG/DL (80-115)
[2017-08-23 16:41] LABS: BEDSIDE GLUCOSE 300 MG/DL (80-115)
[2017-08-23] MEDS ORDERED: WARFARIN SOD 3 MG TAB PO (17:00)
[2017-08-23] MEDS: WARFARIN SOD 4 MG TAB PO (17:08)
[2017-08-23] MEDS: WARFARIN SOD 1 MG TAB PO (17:08)
[2017-08-23 20:37] LABS: BEDSIDE GLUCOSE 352 MG/DL (80-115)
[2017-08-23] MEDS: TAMSULOSIN 0.4 MG CAP PO (21:32)
[2017-08-23] MEDS: NORCO, ANEXSIA 5/325MG TABLET (HYDROcodone/ACETAMINOPHEN) PO (21:32)
[2017-08-24] MEDS: CIPROFLOXACIN 500 MG TAB PO ×2 (05:06→16:56)
[2017-08-24 07:11] LABS: BEDSIDE GLUCOSE 238 MG/DL (80-115)
[2017-08-24] MEDS: LEVEMIR (INSULIN DETEMIR) 1 UNITS/0.01ML SC ×2 (07:54→20:36)
[2017-08-24] MEDS: HumaLOG INSULIN (NovoLOG) PER UNIT SC ×4 (07:54→20:35)
[2017-08-24] MEDS: PANTOPRAZOLE 40MG TAB (PROTONIX) PO (07:55)
[2017-08-24] MEDS: predniSONE 20 MG TAB PO (07:55)
[2017-08-24] MEDS: BRIMONIDINE 0.15% OPHTH SOLN 5 ML OS ×3 (07:55→20:36)
[2017-08-24] MEDS: MAXITROL OPHTH OINT 3.5 GM OD ×4 (07:55→20:36)
[2017-08-24] MEDS: NYSTATIN 100,000 UNITS/GM TOPICAL PWD 15 GM TOP ×2 (07:55→20:36)
[2017-08-24] MEDS: guaiFENesin ER 600 MG TAB PO ×2 (07:55→20:37)
[2017-08-24] MEDS: COSOPT OCUMETER PLUS 10ML (DORZOLAMIDE/TIMOLOL) OS ×2 (07:55→20:36)
[2017-08-24] MEDS: ESCITALOPRAM OXALATE 10 MG TAB (LEXAPRO) PO (07:55)
[2017-08-24] MEDS: GABAPENTIN 300 MG CAP PO ×2 (07:55→20:37)
[2017-08-24 11:55] LABS: BEDSIDE GLUCOSE 253 MG/DL (80-115)
[2017-08-24 16:41] LABS: BEDSIDE GLUCOSE 302 MG/DL (80-115)
[2017-08-24] MEDS: WARFARIN SOD 4 MG TAB PO (16:56)
[2017-08-24] MEDS: NORCO, ANEXSIA 5/325MG TABLET (HYDROcodone/ACETAMINOPHEN) PO (17:00)
[2017-08-24 20:09] LABS: BEDSIDE GLUCOSE 341 MG/DL (80-115)
[2017-08-24] MEDS: LATANOPROST 0.005% OPHTH SOLN 2.5 ML OS (20:36)
[2017-08-24] MEDS: TAMSULOSIN 0.4 MG CAP PO (20:37)
[2017-08-25] MEDS: CIPROFLOXACIN 500 MG TAB PO (05:12)
[2017-08-25 05:50] LABS: BEDSIDE GLUCOSE 117 MG/DL (80-115)
[2017-08-25 06:42] LABS: INR 1.37; PROTHROMBIN TIME 17.2 SECONDS (12.4-14.5)
[2017-08-25] MEDS: guaiFENesin ER 600 MG TAB PO ×2 (07:38→21:39)
[2017-08-25] MEDS: PANTOPRAZOLE 40MG TAB (PROTONIX) PO (07:38)
[2017-08-25] MEDS: GABAPENTIN 300 MG CAP PO ×2 (07:38→21:38)
[2017-08-25] MEDS: LEVEMIR (INSULIN DETEMIR) 1 UNITS/0.01ML SC ×2 (07:39→21:40)
[2017-08-25] MEDS: ESCITALOPRAM OXALATE 10 MG TAB (LEXAPRO) PO (07:39)
[2017-08-25] MEDS: predniSONE 20 MG TAB PO (07:39)
[2017-08-25] MEDS: BRIMONIDINE 0.15% OPHTH SOLN 5 ML OS ×3 (07:40→21:40)
[2017-08-25] MEDS: COSOPT OCUMETER PLUS 10ML (DORZOLAMIDE/TIMOLOL) OS ×2 (07:40→21:41)
[2017-08-25] MEDS: NYSTATIN 100,000 UNITS/GM TOPICAL PWD 15 GM TOP ×2 (07:40→21:38)
[2017-08-25] MEDS: HumaLOG INSULIN (NovoLOG) PER UNIT SC ×4 (07:40→21:00)
[2017-08-25] MEDS: MAXITROL OPHTH OINT 3.5 GM OD ×4 (07:40→21:40)
[2017-08-25] MEDS: SANTYL OINT 30GM TOP (09:00)
[2017-08-25 11:47] LABS: BEDSIDE GLUCOSE 252 MG/DL (80-115)
[2017-08-25 17:02] LABS: BEDSIDE GLUCOSE 308 MG/DL (80-115)
[2017-08-25] MEDS: WARFARIN SOD 4 MG TAB PO (17:53)
[2017-08-25] MEDS: WARFARIN SOD 2 MG TAB PO (17:54)
[2017-08-25] MEDS ORDERED: LEVEMIR (INSULIN DETEMIR) 1 UNITS/0.01ML SC (21:00)
[2017-08-25 21:15] LABS: BEDSIDE GLUCOSE 246 MG/DL (80-115)
[2017-08-25] MEDS: TAMSULOSIN 0.4 MG CAP PO (21:38)
[2017-08-25] MEDS: NORCO, ANEXSIA 5/325MG TABLET (HYDROcodone/ACETAMINOPHEN) PO (21:39)
[2017-08-25] MEDS: LATANOPROST 0.005% OPHTH SOLN 2.5 ML OS (21:40)
[2017-08-26 05:50] LABS: INR 1.46; PROTHROMBIN TIME 18.1 SECONDS (12.4-14.5)
[2017-08-26 07:57] LABS: BEDSIDE GLUCOSE 120 MG/DL (80-115)
[2017-08-26] MEDS: HumaLOG INSULIN (NovoLOG) PER UNIT SC ×4 (08:18→21:25)
[2017-08-26] MEDS: predniSONE 20 MG TAB PO (08:18)
[2017-08-26] MEDS: LEVEMIR (INSULIN DETEMIR) 1 UNITS/0.01ML SC ×2 (08:19→21:25)
[2017-08-26] MEDS: ESCITALOPRAM OXALATE 10 MG TAB (LEXAPRO) PO (08:19)
[2017-08-26] MEDS: GABAPENTIN 300 MG CAP PO ×2 (08:19→21:24)
[2017-08-26] MEDS: guaiFENesin ER 600 MG TAB PO ×2 (08:19→21:23)
[2017-08-26] MEDS: PANTOPRAZOLE 40MG TAB (PROTONIX) PO (08:20)
[2017-08-26] MEDS: MAXITROL OPHTH OINT 3.5 GM OD ×4 (08:20→21:26)
[2017-08-26] MEDS: COSOPT OCUMETER PLUS 10ML (DORZOLAMIDE/TIMOLOL) OS ×2 (08:21→21:25)
[2017-08-26] MEDS: NYSTATIN 100,000 UNITS/GM TOPICAL PWD 15 GM TOP ×2 (08:21→21:26)
[2017-08-26] MEDS: BRIMONIDINE 0.15% OPHTH SOLN 5 ML OS ×3 (08:21→21:25)
[2017-08-26 12:28] LABS: BEDSIDE GLUCOSE 267 MG/DL (80-115)
[2017-08-26] MEDS: NORCO, ANEXSIA 5/325MG TABLET (HYDROcodone/ACETAMINOPHEN) PO ×2 (13:22→21:24)
[2017-08-26] MEDS: WARFARIN SOD 2 MG TAB PO (16:58)
[2017-08-26] MEDS: WARFARIN SOD 4 MG TAB PO (16:58)
[2017-08-26 17:34] LABS: BEDSIDE GLUCOSE 304 MG/DL (80-115)
[2017-08-26 21:16] LABS: BEDSIDE GLUCOSE 257 MG/DL (80-115)
[2017-08-26] MEDS: TAMSULOSIN 0.4 MG CAP PO (21:24)
[2017-08-26] MEDS: LATANOPROST 0.005% OPHTH SOLN 2.5 ML OS (21:26)
[2017-08-27 06:16] LABS: BEDSIDE GLUCOSE 192 MG/DL (80-115)
[2017-08-27 06:20] LABS: INR 1.58; PROTHROMBIN TIME 19.3 SECONDS (12.4-14.5)
[2017-08-27] MEDS: ESCITALOPRAM OXALATE 10 MG TAB (LEXAPRO) PO (08:36)
[2017-08-27] MEDS: predniSONE 20 MG TAB PO (08:36)
[2017-08-27] MEDS: PANTOPRAZOLE 40MG TAB (PROTONIX) PO (08:36)
[2017-08-27] MEDS: GABAPENTIN 300 MG CAP PO ×2 (08:36→21:35)
[2017-08-27] MEDS: guaiFENesin ER 600 MG TAB PO ×2 (08:36→21:35)
[2017-08-27] MEDS: HumaLOG INSULIN (NovoLOG) PER UNIT SC ×4 (08:36→21:34)
[2017-08-27] MEDS: LEVEMIR (INSULIN DETEMIR) 1 UNITS/0.01ML SC ×2 (08:37→21:34)
[2017-08-27] MEDS: NYSTATIN 100,000 UNITS/GM TOPICAL PWD 15 GM TOP ×2 (08:37→21:36)
[2017-08-27] MEDS: MAXITROL OPHTH OINT 3.5 GM OD ×4 (08:38→21:36)
[2017-08-27] MEDS: COSOPT OCUMETER PLUS 10ML (DORZOLAMIDE/TIMOLOL) OS ×2 (08:38→21:36)
[2017-08-27] MEDS: BRIMONIDINE 0.15% OPHTH SOLN 5 ML OS ×3 (08:38→21:36)
[2017-08-27 11:59] LABS: BEDSIDE GLUCOSE 172 MG/DL (80-115)
[2017-08-27] MEDS: SANTYL OINT 30GM TOP (14:40)
[2017-08-27 16:38] LABS: BEDSIDE GLUCOSE 288 MG/DL (80-115)
[2017-08-27] MEDS: WARFARIN SOD 4 MG TAB PO (17:18)
[2017-08-27] MEDS: WARFARIN SOD 3 MG TAB PO (17:18)
[2017-08-27 21:27] LABS: BEDSIDE GLUCOSE 256 MG/DL (80-115)
[2017-08-27] MEDS: TAMSULOSIN 0.4 MG CAP PO (21:35)
[2017-08-27] MEDS: NORCO, ANEXSIA 5/325MG TABLET (HYDROcodone/ACETAMINOPHEN) PO (21:35)
[2017-08-27] MEDS: LATANOPROST 0.005% OPHTH SOLN 2.5 ML OS (21:36)
[2017-08-28 06:45] LABS: BEDSIDE GLUCOSE 71 MG/DL (80-115)
[2017-08-28] MEDS: HumaLOG INSULIN (NovoLOG) PER UNIT SC ×5 (07:23→22:03)
[2017-08-28 07:53] LABS: INR 1.95; PROTHROMBIN TIME 22.9 SECONDS (12.4-14.5)
[2017-08-28] MEDS: LEVEMIR (INSULIN DETEMIR) 1 UNITS/0.01ML SC ×2 (08:39→21:32)
[2017-08-28] MEDS: predniSONE 20 MG TAB PO (08:42)
[2017-08-28] MEDS: guaiFENesin ER 600 MG TAB PO ×2 (08:42→21:30)
[2017-08-28] MEDS: GABAPENTIN 300 MG CAP PO ×2 (08:42→21:30)
[2017-08-28] MEDS: ESCITALOPRAM OXALATE 10 MG TAB (LEXAPRO) PO (08:42)
[2017-08-28] MEDS: PANTOPRAZOLE 40MG TAB (PROTONIX) PO (08:42)
[2017-08-28] MEDS: BRIMONIDINE 0.15% OPHTH SOLN 5 ML OS ×3 (08:43→21:31)
[2017-08-28] MEDS: NYSTATIN 100,000 UNITS/GM TOPICAL PWD 15 GM TOP ×2 (08:44→21:31)
[2017-08-28] MEDS: COSOPT OCUMETER PLUS 10ML (DORZOLAMIDE/TIMOLOL) OS ×2 (08:50→21:30)
[2017-08-28] MEDS: MAXITROL OPHTH OINT 3.5 GM OD ×4 (08:50→21:30)
[2017-08-28 12:06] LABS: BEDSIDE GLUCOSE 242 MG/DL (80-115)
[2017-08-28] MEDS: WARFARIN SOD 4 MG TAB PO (16:00)
[2017-08-28 16:50] LABS: BEDSIDE GLUCOSE 291 MG/DL (80-115)
[2017-08-28 21:02] LABS: BEDSIDE GLUCOSE 314 MG/DL (80-115)
[2017-08-28] MEDS: ONDANSETRON 4 MG ORAL DISINTEGRATING TAB (S0181) PO (21:30)
[2017-08-28] MEDS: TAMSULOSIN 0.4 MG CAP PO (21:30)
[2017-08-28] MEDS: LATANOPROST 0.005% OPHTH SOLN 2.5 ML OS (21:31)
[2017-08-29] MEDS: NORCO, ANEXSIA 5/325MG TABLET (HYDROcodone/ACETAMINOPHEN) PO ×2 (04:20→22:00)
[2017-08-29 06:46] LABS: BEDSIDE GLUCOSE 184 MG/DL (80-115)
[2017-08-29 08:09] LABS: INR 2.11; PROTHROMBIN TIME 24.4 SECONDS (12.4-14.5)
[2017-08-29] MEDS: ESCITALOPRAM OXALATE 10 MG TAB (LEXAPRO) PO (08:44)
[2017-08-29] MEDS: guaiFENesin ER 600 MG TAB PO ×2 (08:44→22:00)
[2017-08-29] MEDS: GABAPENTIN 300 MG CAP PO ×2 (08:44→22:00)
[2017-08-29] MEDS: predniSONE 20 MG TAB PO (08:45)
[2017-08-29] MEDS: PANTOPRAZOLE 40MG TAB (PROTONIX) PO (08:45)
[2017-08-29] MEDS: HumaLOG INSULIN (NovoLOG) PER UNIT SC ×4 (08:48→22:02)
[2017-08-29] MEDS: LEVEMIR (INSULIN DETEMIR) 1 UNITS/0.01ML SC ×2 (08:48→22:01)
[2017-08-29] MEDS: MAXITROL OPHTH OINT 3.5 GM OD ×4 (08:49→22:02)
[2017-08-29] MEDS: BRIMONIDINE 0.15% OPHTH SOLN 5 ML OS ×3 (08:49→22:03)
[2017-08-29] MEDS: SANTYL OINT 30GM TOP (08:49)
[2017-08-29] MEDS: COSOPT OCUMETER PLUS 10ML (DORZOLAMIDE/TIMOLOL) OS ×2 (08:49→22:03)
[2017-08-29] MEDS: NYSTATIN 100,000 UNITS/GM TOPICAL PWD 15 GM TOP ×2 (08:49→22:02)
[2017-08-29 12:03] LABS: BEDSIDE GLUCOSE 212 MG/DL (80-115)
[2017-08-29] MEDS: WARFARIN SOD 4 MG TAB PO (16:38)
[2017-08-29 16:45] LABS: BEDSIDE GLUCOSE 245 MG/DL (80-115)
[2017-08-29 20:28] LABS: BEDSIDE GLUCOSE 395 MG/DL (80-115)
[2017-08-29] MEDS: TAMSULOSIN 0.4 MG CAP PO (22:00)
[2017-08-29] MEDS: LATANOPROST 0.005% OPHTH SOLN 2.5 ML OS (22:02)
[2017-08-30 06:04] LABS: BEDSIDE GLUCOSE 109 MG/DL (80-115)
[2017-08-30 07:01] LABS: INR 1.83; PROTHROMBIN TIME 21.7 SECONDS (12.4-14.5)
[2017-08-30] MEDS: predniSONE 20 MG TAB PO (08:23)
[2017-08-30] MEDS: guaiFENesin ER 600 MG TAB PO ×2 (08:23→21:53)
[2017-08-30] MEDS: PANTOPRAZOLE 40MG TAB (PROTONIX) PO (08:23)
[2017-08-30] MEDS: GABAPENTIN 300 MG CAP PO ×2 (08:23→21:53)
[2017-08-30] MEDS: ESCITALOPRAM OXALATE 10 MG TAB (LEXAPRO) PO (08:23)
[2017-08-30] MEDS: HumaLOG INSULIN (NovoLOG) PER UNIT SC ×4 (08:24→21:54)
[2017-08-30] MEDS: LEVEMIR (INSULIN DETEMIR) 1 UNITS/0.01ML SC ×2 (08:24→21:53)
[2017-08-30] MEDS: COSOPT OCUMETER PLUS 10ML (DORZOLAMIDE/TIMOLOL) OS ×2 (08:25→21:55)
[2017-08-30] MEDS: MAXITROL OPHTH OINT 3.5 GM OD ×4 (08:25→21:54)
[2017-08-30] MEDS: NYSTATIN 100,000 UNITS/GM TOPICAL PWD 15 GM TOP ×2 (08:25→21:56)
[2017-08-30] MEDS: BRIMONIDINE 0.15% OPHTH SOLN 5 ML OS ×3 (08:25→21:55)
[2017-08-30] MEDS: ONDANSETRON 4 MG ORAL DISINTEGRATING TAB (S0181) PO (09:29)
[2017-08-30] MEDS: NORCO, ANEXSIA 5/325MG TABLET (HYDROcodone/ACETAMINOPHEN) PO (10:08)
[2017-08-30 11:49] LABS: BEDSIDE GLUCOSE 138 MG/DL (80-115)
[2017-08-30 16:53] LABS: BEDSIDE GLUCOSE 315 MG/DL (80-115)
[2017-08-30] MEDS: WARFARIN SOD 5 MG TAB PO (17:17)
[2017-08-30 21:02] LABS: BEDSIDE GLUCOSE 302 MG/DL (80-115)
[2017-08-30] MEDS: TAMSULOSIN 0.4 MG CAP PO (21:53)
[2017-08-30] MEDS: LATANOPROST 0.005% OPHTH SOLN 2.5 ML OS (21:55)
[2017-08-31] MEDS: LISINOPRIL 10 MG TAB PO (06:11)
[2017-08-31 06:42] LABS: INR 2.23; PROTHROMBIN TIME 25.5 SECONDS (12.4-14.5)
[2017-08-31] MEDS: HumaLOG INSULIN (NovoLOG) PER UNIT SC ×4 (07:30→21:43)
[2017-08-31 08:50] LABS: BEDSIDE GLUCOSE 59 MG/DL (80-115)
[2017-08-31 08:50] LABS: BEDSIDE GLUCOSE 113 MG/DL (80-115)
[2017-08-31] MEDS: PANTOPRAZOLE 40MG TAB (PROTONIX) PO (10:01)
[2017-08-31] MEDS: guaiFENesin ER 600 MG TAB PO ×2 (10:01→21:33)
[2017-08-31] MEDS: predniSONE 20 MG TAB PO (10:01)
[2017-08-31] MEDS: GABAPENTIN 300 MG CAP PO ×2 (10:01→21:33)
[2017-08-31] MEDS: ESCITALOPRAM OXALATE 10 MG TAB (LEXAPRO) PO (10:01)
[2017-08-31] MEDS: MAXITROL OPHTH OINT 3.5 GM OD ×4 (10:02→21:33)
[2017-08-31] MEDS: BRIMONIDINE 0.15% OPHTH SOLN 5 ML OS ×3 (10:02→21:34)
[2017-08-31] MEDS: LEVEMIR (INSULIN DETEMIR) 1 UNITS/0.01ML SC ×2 (10:02→21:35)
[2017-08-31] MEDS: NYSTATIN 100,000 UNITS/GM TOPICAL PWD 15 GM TOP ×2 (10:03→21:34)
[2017-08-31] MEDS: COSOPT OCUMETER PLUS 10ML (DORZOLAMIDE/TIMOLOL) OS ×2 (10:03→21:34)
[2017-08-31] MEDS: SANTYL OINT 30GM TOP (10:04)
[2017-08-31 11:42] LABS: BEDSIDE GLUCOSE 181 MG/DL (80-115)
[2017-08-31 16:50] LABS: BEDSIDE GLUCOSE 227 MG/DL (80-115)
[2017-08-31] MEDS: WARFARIN SOD 5 MG TAB PO (17:29)
[2017-08-31 20:58] LABS: BEDSIDE GLUCOSE 313 MG/DL (80-115)
[2017-08-31] MEDS: TAMSULOSIN 0.4 MG CAP PO (21:33)
[2017-08-31] MEDS: NORCO, ANEXSIA 5/325MG TABLET (HYDROcodone/ACETAMINOPHEN) PO (21:33)
[2017-08-31] MEDS: LATANOPROST 0.005% OPHTH SOLN 2.5 ML OS (21:34)
[2017-09-01 07:50] LABS: BEDSIDE GLUCOSE 170 MG/DL (80-115)
[2017-09-01] MEDS: HumaLOG INSULIN (NovoLOG) PER UNIT SC ×4 (08:22→20:53)
[2017-09-01] MEDS: ESCITALOPRAM OXALATE 10 MG TAB (LEXAPRO) PO (08:22)
[2017-09-01] MEDS: PANTOPRAZOLE 40MG TAB (PROTONIX) PO (08:23)
[2017-09-01] MEDS: GABAPENTIN 300 MG CAP PO ×2 (08:23→20:51)
[2017-09-01] MEDS: BRIMONIDINE 0.15% OPHTH SOLN 5 ML OS ×3 (08:23→20:53)
[2017-09-01] MEDS: COSOPT OCUMETER PLUS 10ML (DORZOLAMIDE/TIMOLOL) OS ×2 (08:23→20:54)
[2017-09-01] MEDS: predniSONE 20 MG TAB PO (08:23)
[2017-09-01] MEDS: guaiFENesin ER 600 MG TAB PO ×2 (08:23→20:52)
[2017-09-01] MEDS: LEVEMIR (INSULIN DETEMIR) 1 UNITS/0.01ML SC ×2 (08:23→20:53)
[2017-09-01] MEDS: MAXITROL OPHTH OINT 3.5 GM OD ×4 (08:23→20:53)
[2017-09-01] MEDS: NYSTATIN 100,000 UNITS/GM TOPICAL PWD 15 GM TOP ×2 (08:24→20:52)
[2017-09-01 12:01] LABS: BEDSIDE GLUCOSE 266 MG/DL (80-115)
[2017-09-01] MEDS: NORCO, ANEXSIA 5/325MG TABLET (HYDROcodone/ACETAMINOPHEN) PO ×2 (12:15→20:52)
[2017-09-01 17:00] LABS: BEDSIDE GLUCOSE 173 MG/DL (80-115)
[2017-09-01] MEDS: WARFARIN SOD 5 MG TAB PO (17:48)
[2017-09-01] MEDS: TAMSULOSIN 0.4 MG CAP PO (20:52)
[2017-09-01] MEDS: LATANOPROST 0.005% OPHTH SOLN 2.5 ML OS (20:54)
[2017-09-02 06:01] LABS: BEDSIDE GLUCOSE 142 MG/DL (80-115)
[2017-09-02] MEDS: guaiFENesin ER 600 MG TAB PO ×2 (08:22→20:26)
[2017-09-02] MEDS: GABAPENTIN 300 MG CAP PO ×2 (08:23→20:26)
[2017-09-02] MEDS: ESCITALOPRAM OXALATE 10 MG TAB (LEXAPRO) PO (08:23)
[2017-09-02] MEDS: predniSONE 20 MG TAB PO (08:23)
[2017-09-02] MEDS: NORCO, ANEXSIA 5/325MG TABLET (HYDROcodone/ACETAMINOPHEN) PO ×2 (08:23→20:26)
[2017-09-02] MEDS: PANTOPRAZOLE 40MG TAB (PROTONIX) PO (08:24)
[2017-09-02] MEDS: LEVEMIR (INSULIN DETEMIR) 1 UNITS/0.01ML SC ×2 (08:24→20:27)
[2017-09-02] MEDS: HumaLOG INSULIN (NovoLOG) PER UNIT SC ×4 (08:24→20:27)
[2017-09-02] MEDS: NYSTATIN 100,000 UNITS/GM TOPICAL PWD 15 GM TOP ×2 (08:25→21:00)
[2017-09-02] MEDS: COSOPT OCUMETER PLUS 10ML (DORZOLAMIDE/TIMOLOL) OS ×2 (08:25→20:28)
[2017-09-02] MEDS: MAXITROL OPHTH OINT 3.5 GM OD ×4 (08:25→20:28)
[2017-09-02] MEDS: BRIMONIDINE 0.15% OPHTH SOLN 5 ML OS ×3 (08:25→20:28)
[2017-09-02] MEDS: SANTYL OINT 30GM TOP (11:48)
[2017-09-02 11:59] LABS: BEDSIDE GLUCOSE 261 MG/DL (80-115)
[2017-09-02] MEDS: WARFARIN SOD 5 MG TAB PO (16:48)
[2017-09-02 17:17] LABS: BEDSIDE GLUCOSE 113 MG/DL (80-115)
[2017-09-02] MEDS: TAMSULOSIN 0.4 MG CAP PO (20:27)
[2017-09-02] MEDS: LATANOPROST 0.005% OPHTH SOLN 2.5 ML OS (20:28)
[2017-09-02 21:17] LABS: BEDSIDE GLUCOSE 272 MG/DL (80-115)
[2017-09-03 06:40] LABS: BEDSIDE GLUCOSE 70 MG/DL (80-115)
[2017-09-03] MEDS: HumaLOG INSULIN (NovoLOG) PER UNIT SC ×4 (07:19→22:41)
[2017-09-03] MEDS: PANTOPRAZOLE 40MG TAB (PROTONIX) PO (08:42)
[2017-09-03] MEDS: guaiFENesin ER 600 MG TAB PO ×2 (08:42→22:40)
[2017-09-03] MEDS: ESCITALOPRAM OXALATE 10 MG TAB (LEXAPRO) PO (08:43)
[2017-09-03] MEDS: GABAPENTIN 300 MG CAP PO ×2 (08:43→22:40)
[2017-09-03] MEDS: NORCO, ANEXSIA 5/325MG TABLET (HYDROcodone/ACETAMINOPHEN) PO ×3 (08:43→22:40)
[2017-09-03] MEDS: predniSONE 20 MG TAB PO (08:43)
[2017-09-03] MEDS: COSOPT OCUMETER PLUS 10ML (DORZOLAMIDE/TIMOLOL) OS ×2 (08:44→22:44)
[2017-09-03] MEDS: BRIMONIDINE 0.15% OPHTH SOLN 5 ML OS ×3 (08:44→22:43)
[2017-09-03] MEDS: MAXITROL OPHTH OINT 3.5 GM OD ×4 (08:44→22:46)
[2017-09-03] MEDS: NYSTATIN 100,000 UNITS/GM TOPICAL PWD 15 GM TOP ×2 (08:44→21:00)
[2017-09-03] MEDS: LEVEMIR (INSULIN DETEMIR) 1 UNITS/0.01ML SC ×2 (08:45→22:41)
[2017-09-03 09:23] LABS: HEMATOCRIT 37.1 % (36.0-47.0); HEMOGLOBIN 11.8 g/dl (12.0-16.0); MEAN CORPUSCULAR HEMOGLOBIN 29.5 pg (27.0-33.0); MEAN CORPUSCULAR HGB CONC 31.8 g/dl (32.0-36.5); MEAN CORPUSCULAR VOLUME 92.8 fl (80.0-96.0); PLATELET COUNT, AUTOMATED 231 10^3/uL (150-450); RED CELL DISTRIBUTION WIDTH 13.4 % (11.5-14.5); WHITE BLOOD COUNT 10.7 10^3/uL (4.0-10.0)
[2017-09-03 09:47] LABS: INR 3.45; PROTHROMBIN TIME 36.4 SECONDS (12.4-14.5)
[2017-09-03 09:48] LABS: ANION GAP 5 MEQ/L (8-16); BLOOD UREA NITROGEN 23 MG/DL (7-18); CALCIUM LEVEL 7.9 MG/DL (8.8-10.2); CARBON DIOXIDE LEVEL 29 MEQ/L (21-32); CHLORIDE LEVEL 99 MEQ/L (98-107); CREATININE FOR GFR 0.76 MG/DL (0.55-1.02); GLOMERULAR FILTRATION RATE > 60.0 (>45); GLUCOSE, FASTING 249 MG/DL (80-110); POTASSIUM SERUM 4.9 MEQ/L (3.5-5.1); SODIUM LEVEL 133 MEQ/L (136-145)
[2017-09-03 12:12] LABS: BEDSIDE GLUCOSE 265 MG/DL (80-115)
[2017-09-03 20:30] LABS: BEDSIDE GLUCOSE 334 MG/DL (80-115)
[2017-09-03] MEDS: TAMSULOSIN 0.4 MG CAP PO (22:40)
[2017-09-03] MEDS: LATANOPROST 0.005% OPHTH SOLN 2.5 ML OS (22:44)
[2017-09-04] MEDS: NORCO, ANEXSIA 5/325MG TABLET (HYDROcodone/ACETAMINOPHEN) PO (05:55)
[2017-09-04 07:04] LABS: BEDSIDE GLUCOSE 192 MG/DL (80-115)
[2017-09-04 07:04] LABS: HEMATOCRIT 36.9 % (36.0-47.0); MEAN CORPUSCULAR HEMOGLOBIN 29.1 pg (27.0-33.0); MEAN CORPUSCULAR HGB CONC 32.5 g/dl (32.0-36.5); MEAN CORPUSCULAR VOLUME 89.6 fl (80.0-96.0); PLATELET COUNT, AUTOMATED 256 10^3/uL (150-450); RED BLOOD COUNT 4.12 10^6/uL (4.00-5.40); RED CELL DISTRIBUTION WIDTH 13.2 % (11.5-14.5); WHITE BLOOD COUNT 10.6 10^3/uL (4.0-10.0)
[2017-09-04 07:16] LABS: INR 2.91; PROTHROMBIN TIME 31.7 SECONDS (12.4-14.5)
[2017-09-04 07:24] LABS: ANION GAP 7 MEQ/L (8-16); BLOOD UREA NITROGEN 19 MG/DL (7-18); CALCIUM LEVEL 8.3 MG/DL (8.8-10.2); CARBON DIOXIDE LEVEL 32 MEQ/L (21-32); CHLORIDE LEVEL 100 MEQ/L (98-107); CREATININE FOR GFR 0.68 MG/DL (0.55-1.02); GLOMERULAR FILTRATION RATE > 60.0 (>45); GLUCOSE, FASTING 131 MG/DL (80-110); POTASSIUM SERUM 4.3 MEQ/L (3.5-5.1); SODIUM LEVEL 139 MEQ/L (136-145)
[2017-09-04] MEDS: HumaLOG INSULIN (NovoLOG) PER UNIT SC ×2 (08:01→12:25)
[2017-09-04] MEDS: predniSONE 20 MG TAB PO (08:01)
[2017-09-04] MEDS: LEVEMIR (INSULIN DETEMIR) 1 UNITS/0.01ML SC (08:01)
[2017-09-04] MEDS: MAXITROL OPHTH OINT 3.5 GM OD ×2 (08:02→12:25)
[2017-09-04] MEDS: guaiFENesin ER 600 MG TAB PO (08:02)
[2017-09-04] MEDS: GABAPENTIN 300 MG CAP PO (08:02)
[2017-09-04] MEDS: PANTOPRAZOLE 40MG TAB (PROTONIX) PO (08:02)
[2017-09-04] MEDS: ESCITALOPRAM OXALATE 10 MG TAB (LEXAPRO) PO (08:02)
[2017-09-04] MEDS: BRIMONIDINE 0.15% OPHTH SOLN 5 ML OS (08:03)
[2017-09-04] MEDS: NYSTATIN 100,000 UNITS/GM TOPICAL PWD 15 GM TOP (08:03)
[2017-09-04] MEDS: COSOPT OCUMETER PLUS 10ML (DORZOLAMIDE/TIMOLOL) OS (08:03)
[2017-09-04] MEDS: SANTYL OINT 30GM TOP (08:03)
[2017-09-04 12:20] LABS: BEDSIDE GLUCOSE 142 MG/DL (80-115)
== END 2017-09-04 14:37 | disposition home health service (06) | DRG 720 ==
LOC: M ED INP 07-27 00:22 → M MSPAV 07-27 15:36 → M ED 18:30
PROVIDERS: Hospitalist
PROC: 02HV33Z Insertion of Infusion Device into Superior Vena Cava, Percutaneous Approach (ICD-10-PCS; 2017-07-28)
PROC: 30233N1 Transfusion of Nonautologous Red Blood Cells into Peripheral Vein, Percutaneous Approach (ICD-10-PCS; principal; 2017-08-03)
DX: A41.9 Sepsis, unspecified organism (principal); J69.0 Pneumonitis due to inhalation of food and vomit; E87.0 Hyperosmolality and hypernatremia; I82.621 Acute embolism and thrombosis of deep veins of right upper extremity; E87.2 Acidosis; E11.621 Type 2 diabetes mellitus with foot ulcer; E11.40 Type 2 diabetes mellitus with diabetic neuropathy, unspecified; E11.65 Type 2 diabetes mellitus with hyperglycemia; L97.529 Non-pressure chronic ulcer of other part of left foot with unspecified severity; L97.519 Non-pressure chronic ulcer of other part of right foot with unspecified severity; N31.9 Neuromuscular dysfunction of bladder, unspecified; Z88.5 Allergy status to narcotic agent; Z87.891 Personal history of nicotine dependence; Z79.01 Long term (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 of anticoagulants; H40.89 Other specified glaucoma; R11.2 Nausea with vomiting, unspecified; E87.6 Hypokalemia; H54.8 Legal blindness, as defined in USA; D64.9 Anemia, unspecified; R10.9 Unspecified abdominal pain; N39.0 Urinary tract infection, site not specified; Z79.4 Long term (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 of insulin

== ENCOUNTER → 2017-09-14 | Outpatient (REF) | payer OTHER | LOC: M LAB REF 17:49 | DX: E11.621 Type 2 diabetes mellitus with foot ulcer (principal) ==

== ENCOUNTER → 2017-09-21 | Outpatient (REF) | payer OTHER ==
[2017-09-21 19:52] LABS: HEMATOCRIT 40.3 % (36.0-47.0); HEMOGLOBIN 13.1 g/dl (12.0-16.0); MEAN CORPUSCULAR HEMOGLOBIN 29.6 pg (27.0-33.0); MEAN CORPUSCULAR HGB CONC 32.5 g/dl (32.0-36.5); MEAN CORPUSCULAR VOLUME 91.2 fl (80.0-96.0); PLATELET COUNT, AUTOMATED 326 10^3/uL (150-450); RED BLOOD COUNT 4.42 10^6/uL (4.00-5.40); RED CELL DISTRIBUTION WIDTH 13.9 % (11.5-14.5); WHITE BLOOD COUNT 10.9 10^3/uL (4.0-10.0)
[2017-09-21 20:13] LABS: ERYTHROCYTE SEDIMENTATION RATE 14 mm/hr (0-30)
[2017-09-21 20:43] LABS: ALBUMIN 3.1 GM/DL (3.2-5.2); ALBUMIN/GLOBULIN RATIO 0.91 (1.00-1.93); ALKALINE PHOSPHATASE 131 U/L (45-117); ALT/SGPT 37 U/L (12-78); ANION GAP 8 MEQ/L (8-16); AST/SGOT 23 U/L (7-37); BILIRUBIN,TOTAL 0.9 MG/DL (0.2-1.0); BLOOD UREA NITROGEN 28 MG/DL (7-18); C REACTIVE PROTEIN QUANTITATIV 1.59 MG/DL (0.00-0.30); CALCIUM LEVEL 8.1 MG/DL (8.8-10.2); CARBON DIOXIDE LEVEL 24 MEQ/L (21-32); CHLORIDE LEVEL 105 MEQ/L (98-107); CREATININE FOR GFR 1.05 MG/DL (0.55-1.30); GLOMERULAR FILTRATION RATE 56.3 (>45); GLUCOSE, FASTING 379 MG/DL (70-100); SODIUM LEVEL 137 MEQ/L (136-145); TOTAL PROTEIN 6.5 GM/DL (6.4-8.2)
[2017-09-21 20:55] LABS: POTASSIUM SERUM 5.3 MEQ/L (3.5-5.1)
== END ==
LOC: M LAB REF 19:19
DX: E11.621 Type 2 diabetes mellitus with foot ulcer (principal)

== ENCOUNTER → 2017-10-11 | Outpatient (REF) | payer OTHER, MEDICAID | LOC: M LAB REF 17:40 | DX: L97.424 Non-pressure chronic ulcer of left heel and midfoot with necrosis of bone (principal); L97.414 Non-pressure chronic ulcer of right heel and midfoot with necrosis of bone ==

== ENCOUNTER → 2017-11-09 | Outpatient (REF) | payer MEDICAID ==
[2017-11-09 13:30] LABS: ANION GAP 4 MEQ/L (8-16); BLOOD UREA NITROGEN 25 MG/DL (7-18); C REACTIVE PROTEIN QUANTITATIV 2.13 MG/DL (0.00-0.30); CALCIUM LEVEL 8.4 MG/DL (8.8-10.2); CARBON DIOXIDE LEVEL 24 MEQ/L (21-32); CHLORIDE LEVEL 110 MEQ/L (98-107); CREATININE FOR GFR 0.94 MG/DL (0.55-1.30); GLOMERULAR FILTRATION RATE > 60.0 (>45); GLUCOSE, FASTING 154 MG/DL (70-100); SODIUM LEVEL 138 MEQ/L (136-145)
[2017-11-09 13:35] LABS: BASO % 0.4 % (0.0-1.0); EOS # 0.4 10^3/uL (0.0-0.50); EOS % 4.6 % (0.0-3.0); HEMATOCRIT 31.9 % (36.0-47.0); HEMOGLOBIN 9.9 g/dl (12.0-15.5); IMMATURE GRANULOCYTE % 0.4 % (0-3.0); LYMPH # 1.5 10^3/uL (1.5-4.5); MEAN CORPUSCULAR HEMOGLOBIN 29.8 pg (27.0-33.0); MEAN CORPUSCULAR VOLUME 96.1 fl (80.0-96.0); MONO # 0.6 10^3/uL (0.0-0.8); NEUTROPHILS # 6.4 10^3/uL (1.8-7.7); NEUTROPHILS % 70.6 % (36.0-66.0); PLATELET COUNT, AUTOMATED 454 10^3/uL (150-450); RED BLOOD COUNT 3.32 10^6/uL (4.00-5.40); RED CELL DISTRIBUTION WIDTH 15.2 % (11.5-14.5)
[2017-11-09 13:59] LABS: POTASSIUM SERUM 6.2 MEQ/L (3.5-5.1)
[2017-11-09 14:47] LABS: ERYTHROCYTE SEDIMENTATION RATE 66 mm/hr (0-30)
== END ==
LOC: M SFHCPLAZ 09:50
DX: L97.424 Non-pressure chronic ulcer of left heel and midfoot with necrosis of bone (principal); E11.621 Type 2 diabetes mellitus with foot ulcer

== ENCOUNTER → 2017-11-10 | Outpatient (CLI) | payer MEDICAID ==
[2017-11-10 13:48] LABS: ANION GAP 5 MEQ/L (8-16); BLOOD UREA NITROGEN 17 MG/DL (7-18); CALCIUM LEVEL 8.4 MG/DL (8.8-10.2); CARBON DIOXIDE LEVEL 26 MEQ/L (21-32); CHLORIDE LEVEL 108 MEQ/L (98-107); CREATININE FOR GFR 0.79 MG/DL (0.55-1.30); GLOMERULAR FILTRATION RATE > 60.0 (>45); GLUCOSE, FASTING 170 MG/DL (70-100); POTASSIUM SERUM 4.8 MEQ/L (3.5-5.1); SODIUM LEVEL 139 MEQ/L (136-145)
== END ==
LOC: M LAB 12:11
DX: E87.5 Hyperkalemia (principal)
CPT/HCPCS: 36415

== ENCOUNTER → 2017-11-28 | Outpatient (REF) | payer MEDICAID, OTHER ==
[2017-11-28 17:32] LABS: FERRITIN 67 NG/ML (8-252); IRON (FE) 51 UG/DL (50-170); PERCENT SATURATION 17.2 % (13.2-45.0); TOTAL IRON BINDING CAPACITY 297 UG/DL (250-450)
[2017-11-28 19:02] LABS: VITAMIN B12 LEVEL 599 PG/ML (247-911)
== END ==
LOC: M LAB REF 16:37
DX: D50.9 Iron deficiency anemia, unspecified (principal)

== ENCOUNTER → 2018-02-20 | Outpatient (CLI) | payer MEDICAID | LOC: M PAIN 15:00 | DX: E11.42 Type 2 diabetes mellitus with diabetic polyneuropathy (principal); E11.621 Type 2 diabetes mellitus with foot ulcer; M79.671 Pain in right foot; M79.672 Pain in left foot; G89.29 Other chronic pain; I10 Essential (primary) hypertension; Z79.01 Long term (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 of anticoagulants; Z79.899 Other long term (current) drug therapy; Z88.5 Allergy status to narcotic agent; Z88.8 Allergy status to other drugs, medicaments and biological substances; Z86.718 Personal history of other venous thrombosis and embolism | CPT/HCPCS: G0463 ==

== ENCOUNTER → 2018-03-13 | Outpatient (CLI) | payer MEDICAID | LOC: M PAIN 12:45 | DX: E11.42 Type 2 diabetes mellitus with diabetic polyneuropathy (principal); E11.621 Type 2 diabetes mellitus with foot ulcer; L97.424 Non-pressure chronic ulcer of left heel and midfoot with necrosis of bone; L97.512 Non-pressure chronic ulcer of other part of right foot with fat layer exposed; I10 Essential (primary) hypertension; Z79.01 Long term (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 of anticoagulants; Z79.899 Other long term (current) drug therapy; Z88.5 Allergy status to narcotic agent; Z88.8 Allergy status to other drugs, medicaments and biological substances | CPT/HCPCS: G0463 ==

== ENCOUNTER → 2018-08-17 | Outpatient (CLI) | payer MEDICARE, MEDICAID ==
[~2018-08-17] MED LIST changes: -ACETAMINOPHEN 325 MG TAB PO PRN; +ALPH0.156 OS; -AMLO5TAB2 PO; +AMLO5TAB6 PO; +COSOPT OS; +DELT1TAB PO; +DIAM500C PO; +DORZ2SOL5 OU; +FLOM0.4C39 PO; +FOLI1TAB11 PO; -FOLI1TAB4 PO; +GABA-1171 PO; -GABA-279 PO; -GABA-282 PO; +GABA-843 PO; -GLIP1TAB49 PO; +GLIP5TAB20 PO; +KETO5OPD OD; +LEXA1TAB2 PO; +LINE60TAB PO; +MAXI0.1O OD; +MILK120011 PO; -MILKSUS PO; -PANT40TA2 PO; +PANT40TA3 PO; -PRED1SUS OS; +PRED1SUS2 OD; +PRED1SUS2 OS; +PREDOPD; +SANT250O8 TOP; +SENN-23 PO; -SLF 3 ML SYR IV PRN; -SLF 3 ML SYR IV SCH; +TOBR0.3S OD; -TOPR25TA PO; +TOPR25TA13 PO; +WARF-20 PO; +XALA0.007 OS; -ZOFR8TAB PO; +ZOFR8TAB22 PO; +ZOFR8TAB24 PO; -ZOFR8TAB4 PO; +[UNRECOGNIZED DRUG - CODE] OD
--- NOTE | 2018-09-01 23:47 | ECWPNPC ---
PATIENT NAME: SPEEDY DUEÑAS : 1955 GENDER: FEMALE VISIT DATE: 08/17/2018 DISCHARGE DATE: 08/17/18 1107 VISIT LOCKED DATE TIME: PHYSICIAN: SHERRY MCKEON MD RESOURCE: SHERRY MCKEON MD REASON FOR APPOINTMENT 1. FEET-PT IS BLIND NEEDS HELP WITH FORMS HISTORY OF PRESENT ILLNESS HISTORY OF PRESENT ILLNESS: PAIN THE PATIENT DESCRIBES THE PAIN... 62 YEAR OLD FEMALE PATIENT WITH A HISTORY OF CHRONIC DIABETIC PERIPHERAL NEUROPATHY. THE PATIENT DESCRIBES THE PAIN SORE AND TENDER WITH A PAIN SCORE OF 0-6/10 DEPENDING ON PHYSICAL ACTIVITY. THE PATIENT IS CURRENTLY USING GABAPENTIN AND CYMBALTA TO AID IN PAIN RELIEF AND REPORTS THAT THEY ARE HELPING GIVE HER SIGNIFICANT PAIN RELIEF. PATIENT DENIES UNEXPLAINABLE WEIGHT LOSS, FEVER, CHILLS, NEW CHANGES ON HER URINARY OR BOWEL CONTROL. FALL RISK SCREENING: SCREENING :NO FALLS IN THE PAST YEAR CURRENT MEDICATIONS TAKING BRIMONIDINE TARTRATE 0.15 % SOLUTION 1 DROP INTO AFFECTED EYE OPHTHALMIC THREE TIMES A DAY TAKING LEVEMIR SOLUTION 40 UNITS SUBCUTANEOUS DAILY TAKING PANTOPRAZOLE SODIUM 40 MG TABLET DELAYED RELEASE 1 TABLET ORALLY TWICE A DAY TAKING WARFARIN SODIUM 4 MG TABLET 1 TABLET ORALLY ONCE A DAY, MONDAY HALF TAB, NOTES: 1 1/2 TABS MWF TAKING CYMBALTA 30 MG CAPSULE DELAYED RELEASE PARTICLES 1 CAPSULE ORALLY WITH FOOD ONCE A DAY TAKING GABAPENTIN 400 MG CAPSULE 1 TABLET ORALLY FOR PAIN THREE TIMES DAILY MDD3 TAKING INSULIN ASPART 100 UNIT/ML SOLUTION SUBCUTANEOUS 4 UNITS NOT-TAKING NORCO 5-325 MG TABLET 1 TABLET NEEDED ORALLY EVERY 4 HRS NEEDED FOR PAIN 4-10 NOT-TAKING SANTYL 250 UNIT/GM OINTMENT 1 APPLICATION TO AFFECTED AREA EXTERNALLY ONCE A DAY NOT-TAKING KAYEXALATE 15GM/60ML SUSPENSION DIRECTED ORALLY ONCE MEDICATION LIST REVIEWED AND RECONCILED WITH THE PATIENT PAST MEDICAL HISTORY CATARACTS DVT HTN DIABETES TYPE II RIGHT HIP FRACTURE RIGHT HEEL ULCER OSTEOMYELITIS VRE INFECTION HEEL ACUTE OSTEOMYELITIS OF THE LEFT HEEL WITH CULTURE POSITIVE FOR PSEUDOMONAS AERUGINOSA AND ENTEROBACTER STARTED ON IV ANTIBIOTIC ZOSYN THROUGH PICC LINE 07/20/16 PNEUMONIA GLAUCOMA ALLERGIES CODEINE PHOSPHATE: PUT PT IN COMA: ALLERGY CELEBREX: PURPLE SKIN,ITCHY: ALLERGY SURGICAL HISTORY DEBRIDEMENT OF WOUND TO RIGHT HEEL JANUARY 2016 RIGHT HIP FRACTURE WITH HEMIARTHROPLASTY JANUARY 2016 HYSERECTOMY GALL BLADDER REMOVED ANTONY CATARACT PICC LINE 2015 REVASC - RIGHT LEG 09/22/2016 LEFT GREAT TOE AMPUTATION 02/2017 REVASC - LEFT LEG 02/2017 RIGHT EYE SURGERY 07/2017 FAMILY HISTORY FATHER: , DIAGNOSED WITH HEART DISEASE MOTHER: , DIAGNOSED WITH DIABETES SIBLINGS: DIAGNOSED WITH DIABETES 1 BROTHER(S) , 2 SISTER(S) . 2 SON(S) , 1 DAUGHTER(S) - HEALTHY. SOCIAL HISTORY GENERAL: TOBACCO USE ARE YOU A:NONSMOKER BMI CARE GOAL FOLLOW-UP ABOVE NORMAL BMI FOLLOW-UPDIETARY MANAGEMENT EDUCATION, GUIDANCE, AND COUNSELING ALCOHOL SCREENING POINTS: 0, INTERPRETATION: NEGATIVE. RECREATIONAL DRUG USE DRUG USE?NO CAFFEINE CAFFEINE USE?YES HOW OFTEN AND HOW MUCH? OCCASIONAL CUP OF COFFEE HIV / HEP-C SCREENING HIV TEST OFFERED TO PATIENT:YES DATE OFFERED:07/28/2016 TEST ACCEPTED:NO REASON:PATIENT DECLINED HEP-C TEST OFFERED TO PATIENT:YES DATE OFFERED:07/28/2016 TEST ACCEPTED:NO REASON:PATIENT DECLINED HINDU HINDU NO MORMONISM BELIEFS THAT WOULD IMPACT HEALTH CARE; NO MORMONISM PREFERENCE LANGUAGE MALIAN. 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 DIET: NO CONCENTRATED SWEETS.. EXERCISE: NONE. MARITAL STATUS: . OTHERS AT HOME: SPOUSE. PAIN CLINIC PFS, CLERGY, PUBLIC HEALTH REFERRALS HAS THE PATIENT BEEN EDUCATED REGARDING HIS/HER PLAN OF CARE?YES HAS THE PATIENT BEEN EDUCATED REGARDING PAIN, THE RISK FOR PAIN, THE IMPORTANCE OF EFFECTIVE PAIN MANAGEMENT, AND THE PAIN ASSESSMENT PROCESS?YES HOUSING: OWNS HOME. ADVANCE DIRECTIVE ADVANCE DIRECTIVE DISCUSSED WITH PATIENT:YES HEALTH CARE PROXY DOUGLAS DUEÑAS [phone] REVIEWED WITH PT 03/13/18 Win VELAZCO. HOSPITALIZATION/MAJOR DIAGNOSTIC PROCEDURE DEBRIDEMENT OF WOUND TO RIGHT HEEL JANUARY 2016 ILLNESS, SENT TO [facility] 06/2014 PACREATITIS AND BRAIN INFECTION 06/2014 GALL BLADDER AND HYSTERECTOMY HIP SURGERY JANUARY 2016 INFECTED TOE 02/2017 WEAKNESS 07/2017 REVIEW OF SYSTEMS REVIEWED BY: PROVIDER: SHERRY MCKEON MD . CONSTITUTIONAL: ANY CHANGE IN YOUR MEDICAL CONDITION? NO . CHILLS NO . FEVER NO . INFECTION: DO YOU HAVE NEW INFECTIONS? NO . DO YOU HAVE HISTORY OF MRSA? NO . MUSCULOSKELETAL: ANY NEW PATTERNS OF PAIN OR NUMBNESS? NO . GASTROENTEROLOGY: ANY NEW CHANGE IN BOWEL CONTROL? NO . GENITOURINARY: ANY NEW CHANGE IN BLADDER CONTROL? NO . IS THERE A CHANCE YOU COULD BE ? NO . HEMATOLOGY/LYMPH: DO YOU TAKE ANY BLOOD THINNERS? (FOR EXAMPLE- COUMADIN, PLAVIX, AGGRENOX, PLATEL, PRADAXA, OR XARELTO) NO . WHEN WAS YOUR LAST DOSE? DATE: TIME: . NEUROLOGY: HAVE YOU FALLEN IN THE PAST 6 MONTHS? NO . ANY NEW EXTREMITY NUMBNESS OR WEAKNESS? NO . CARDIOLOGY: DO YOU HAVE A PACEMAKER OR DEFIBRILLATOR? NO . RESPIRATORY: HAVE YOU BEEN SICK IN THE PAST WEEK? NO . FEVER NO . FLU LIKE SYMPTOMS? NO . COUGH NO . INTEGUMENTARY: DO YOU HAVE ANY RASHES OR OPEN SORES? YES SEEING DR BEVERLY ONCE A WEEK FPOR WOUND CARE . ALLERGIC/IMMUNO: ARE YOU ALLERGIC TO SHELLFISH OR IV DYE? NO . ANY NEW ALLERGIES? NO . PSYCHIATRIC: DO YOU HAVE THOUGHTS OF HURTING YOURSELF OR SOMEONE ELSE? NO . ARE YOU ABUSED, NEGLECTED, OR IN AN UNSAFE ENVIRONMENT? NO . ENDOCRINOLOGY: ARE YOU DIABETIC? YES . OTHER: DO YOU NEED ANY PRESCRIPTIONS? NO . IF YES, PLEASE LIST: ____ . ANY NEW PROBLEMS WITH YOUR MEDICATIONS? NO . WHEN DID YOU LAST EAT? ____ . WHEN DID YOU LAST DRINK? ____ . WHAT DID YOU LAST DRINK? ____ . NAME OF PERSON DRIVING YOU HOME? ____ . DO YOU HAVE ANY OTHER QUESTIONS OR CONCERNS NO . VITAL SIGNS WT 193 LBS, HT 5'4", BMI 33.12 INDEX, BP 132/60 MM HG, HR 72 /MIN, RR 16 /MIN, TEMP 98.1 F, OXYGEN SAT % 100%, NA INITIALS AW 0947. EXAMINATION GENERAL EXAMINATION: PATIENT IS ALERT O X 3 AND COOPERATIVE. PATIENT IS IN A WHEELCHAIR. ASSESSMENTS DIABETIC PERIPHERAL NEUROPATHY - E11.42 (PRIMARY) TYPE 2 DIABETES MELLITUS WITH FOOT ULCER - E11.621 TREATMENT DIABETIC PERIPHERAL NEUROPATHY CLINICAL NOTES: WE DISCUSSED SEVERAL ISSUES WITH MRS. DUEÑAS'S PAIN MANAGEMENT CASE. THE PATIENT WILL CONTINUE USING GABAPENTIN AND CYMBALTA FOR THE NEUROPATHIC PAIN. THE PATIENT'S CONDITION IS STABLE AND SHE IS DOING WELL, SO SHE WILL FOLLOW UP IN 3 MONTHS. INSTRUCTIONS WERE GIVEN, QUESTIONS WERE ANSWERED, PATIENT REPORTS UNDERSTANDING AND AGREES WITH THE PLAN. I, KARLA MORTON, DOCUMENTED THE ABOVE INFORMATION ACTING A SCRIBE FOR DR. MCKEON. I HAVE REVIEWED THE ABOVE DOCUMENT, WRITTEN BY KARLA NGUYENIBJonel AND I VERIFY THAT IT IS ACCURATE. TYPE 2 DIABETES MELLITUS WITH FOOT ULCER REFILL CYMBALTA CAPSULE DELAYED RELEASE PARTICLES, 30 MG, 1 CAPSULE, ORALLY WITH FOOD, ONCE A DAY, 30 DAY(S), 30, REFILLS 2 REFILL GABAPENTIN CAPSULE, 400 MG, 1 TABLET, ORALLY FOR PAIN, THREE TIMES DAILY MDD3, 30 DAY(S), 90, REFILLS 2 PROCEDURE CODES FA211 ESTABILISHED PATIENT [facility] FACILITY CHARGE G8427 CURRENT MEDS W/DOSAGES DOCUMENTED G8730 PAIN ASSESS POS TOOL F/U PLAN DOC DISPOSITION & COMMUNICATION FOLLOW UP 3 MONTHS ELECTRONICALLY SIGNED BY SHERRY MCKEON MD, MD ON 09/01/2018 AT 09:30 PM EST DISCLAIMER : THIS IS A VISIT SUMMARY EXTRACTED FROM THE [employer] CHART. IT IS NOT A COPY OF THE [employer] PROGRESS NOTE. MTDD
== END ==
LOC: M PAIN 09:30
PROVIDERS: ATTEND Anesthesiology
DX: E11.42 Type 2 diabetes mellitus with diabetic polyneuropathy (principal); E11.621 Type 2 diabetes mellitus with foot ulcer; L97.522 Non-pressure chronic ulcer of other part of left foot with fat layer exposed; L97.412 Non-pressure chronic ulcer of right heel and 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; L97.521 Non-pressure chronic ulcer of other part of left foot limited to breakdown of skin; I10 Essential (primary) hypertension; Z79.01 Long term (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 of anticoagulants; Z79.4 Long term (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 of insulin; Z79.899 Other long term (current) drug therapy; Z88.5 Allergy status to narcotic agent; Z88.8 Allergy status to other drugs, medicaments and biological substances

== ENCOUNTER → 2019-01-30 | Outpatient (REF) | payer MEDICARE, MEDICAID ==
[~2019-01-30] MED LIST changes: +DULO30CA9 PO; -FERG1TAB PO; +FERG27TA PO; +FEXO180T70 PO; +GABA-845 PO; +HYDR-3715 PO; +KEFL500C17 PO; +KETO0.5S2 OD; -KETO5OPD OD; +LATA0.0013 OU; -LATA5OPD OU; +LINE1TAB PO; -LINE60TAB PO; +LISI10TA15 PO; +LISI20TA19 PO; -NORC1TAB4 PO; +NORC1TAB7 PO; -NORCOTAB PO; +NYST-15 TOP; -NYST10PW TOP; +SENN-53 PO; -SENN1TAB2 PO; +SING10TA32 PO; +TOPR25TA PO; -TOPR25TA13 PO; +XALA0.007 OU; +[UNRECOGNIZED DRUG - CODE] OD; -[UNRECOGNIZED DRUG - CODE] OD
== END ==
LOC: M LAB REF 16:27
PROVIDERS: ATTEND Surgery
DX: M86.10 Other acute osteomyelitis, unspecified site (principal); E11.621 Type 2 diabetes mellitus with foot ulcer

== ENCOUNTER 2019-02-03 22:13 | Inpatient (IN) | payer MEDICARE, MEDICAID ==
[~2019-02-03] VITALS: Ht 162.6 cm; Wt 97.0 kg
[~2019-02-03 22:13] MED LIST changes: -DULO30CA9 PO; -FEXO180T70 PO; -GABA-845 PO; -KEFL500C17 PO; -LISI10TA15 PO; -LISI20TA19 PO; -SENN-53 PO; +SENN1TAB40 PO; -SING10TA32 PO; -XALA0.007 OU
[2019-02-03] MEDS ORDERED: DORZ2SOL5 OU (22:22)
[2019-02-03] MEDS ORDERED: SING10TA32 PO (22:22)
[2019-02-03] MEDS ORDERED: LISI20TA PO (22:26)
[2019-02-03] MEDS ORDERED: DULO30CA9 PO (22:26)
[2019-02-03] MEDS ORDERED: FEXO180T70 PO (22:26)
[2019-02-03 23:58] LABS: INR 2.28; PROTHROMBIN TIME 24.9 SECONDS (11.8-14.0)
[2019-02-03 23:59] LABS: PARTIAL THROMBOPLASTIN TIME 53.9 SECONDS (25.0-38.4)
[2019-02-04 00:09] LABS: ALBUMIN 2.9 GM/DL (3.2-5.2); BILIRUBIN,DIRECT 0.2 MG/DL (0.0-0.2); BILIRUBIN,TOTAL 0.7 MG/DL (0.2-1.0); C REACTIVE PROTEIN QUANTITATIV 14.4 MG/DL (0.00-0.30); CALCIUM LEVEL 8.2 MG/DL (8.8-10.2); CREATININE FOR GFR 1.38 MG/DL (0.55-1.30); GLOMERULAR FILTRATION RATE 40.8 (>45); POTASSIUM SERUM 4.8 MEQ/L (3.5-5.1); TOTAL PROTEIN 8.1 GM/DL (6.4-8.2)
[2019-02-04 00:13] LABS: BASO % 0.4 % (0.0-1.0); EOS # 0.2 10^3/uL (0.0-0.50); EOS % 2.1 % (0.0-3.0); HEMOGLOBIN 10.8 g/dl (12.0-15.5); LYMPH # 1.6 10^3/uL (1.5-4.5); LYMPH % 14.3 % (24.0-44.0); MEAN CORPUSCULAR HEMOGLOBIN 29.3 pg (27.0-33.0); MEAN CORPUSCULAR HGB CONC 31.8 g/dl (32.0-36.5); MEAN CORPUSCULAR VOLUME 92.1 fl (80.0-96.0); MONO # 0.9 10^3/uL (0.0-0.8); MONO % 8.2 % (0.0-5.0); NEUTROPHILS # 8.1 10^3/uL (1.8-7.7); NEUTROPHILS % 74.4 % (36.0-66.0); PLATELET COUNT, AUTOMATED 391 10^3/uL (150-450); RED BLOOD COUNT 3.69 10^6/uL (4.00-5.40); WHITE BLOOD COUNT 10.9 10^3/uL (4.0-10.0)
[2019-02-04] MEDS ORDERED: NS 500 ML IV ONE (00:30)
[2019-02-04 00:38] LABS: ERYTHROCYTE SEDIMENTATION RATE 85 mm/hr (0-30)
--- NOTE | 2019-02-04 00:45 | REPVR ---
EXAM: XR Left Foot Complete EXAM DATE/TIME: 02/03/2019 10:58 PM CLINICAL HISTORY: 63 years old, female; Pain; Foot; Left; Additional info: Left foot swelling; R/O osteomyelitis TECHNIQUE: Imaging protocol: XR Left foot. Views: 3 or more views. COMPARISON: MRI Left Foot W/O FOL WITH 03/06/2017 4:05:37 PM CR Left Foot, complete 07/14/2016 2:38 PM FINDINGS: Bones/joints: There has been an amputation of the left great toe down to the level of the distal diaphysis of the proximal phalanx. There is a deformity of the distal portion of the proximal phalanx of the left second toe, and a bony fusion across the proximal interphalangeal joint of the left second toe has occurred since the prior MRI on 03/06/2017. There has been an amputation of the left third toe down to the level of the base of the middle phalanx since the prior MRI on 03/06/2017. There is also a defect in the neck of the proximal phalanx of the left third proximal phalanx, which may represent an amputation defect or old fracture. There is an erosion involving the lateral aspect of the head of the left fifth metatarsal that is new compared to the prior MRI on 03/06/2017. There is a soft tissue ulcer lateral to the region of the left fifth metatarsophalangeal joint. There is a plantar calcaneal spur at the origin of the plantar fascia. The bones have a demineralized appearance. No acute fracture is noted. The Lisfranc alignment is preserved. Soft tissues: There is soft tissue swelling in the dorsal aspect of the left foot. Vasculature: There are atherosclerotic calcifications. IMPRESSION: Erosion involving the lateral aspect of the head of the left fifth metatarsal and a soft tissue ulcer lateral to the region of the left fifth metatarsophalangeal joint, which are new findings compared to the prior MRI on 03/06/2017 and are suspicious for osteomyelitis. Electronically signed by: Daryl Rodrigues On 02/04/2019 00:45:02 AM
[2019-02-04] MEDS ORDERED: PIPERACILLIN/TAZOBACTAM SOD 2.25 GM in D5W MINI-BAG PLUS 50 ML IV ONE (01:00)
[2019-02-04] MEDS ORDERED: LISI10TA2 PO (01:13)
[2019-02-04] MEDS ORDERED: GABA-845 PO (01:13)
[2019-02-04] MEDS ORDERED: XALA0.007 OU (01:13)
[2019-02-04] MEDS ORDERED: WARF-20 PO (01:13)
[2019-02-04] MEDS ORDERED: NOVOINJ3 SC ×2 (01:15)
[2019-02-04] MEDS ORDERED: MAALOX 30 ML SUSP *UDC PO PRN (02:30)
[2019-02-04] MEDS ORDERED: MOM 30ML SUSPENSION UDC PO PRN (02:30)
[2019-02-04] MEDS ORDERED: GLUCAGON FOR INJ 1 MG VIAL (J1610) SC PRN (03:00)
[2019-02-04] MEDS ORDERED: DEXTROSE 50% 50 ML SYRINGE IV PRN (03:00)
[2019-02-04] MEDS ORDERED: GLUCOSE 4 GM CHEW TABLET PO PRN (03:00)
--- NOTE | 2019-02-04 03:26 | HPEPDOC ---
General Date of Admission 02/04/19 Date of Service: Feb 04, 2019 Chief Complaint The patient is a 63-year-old female admitted with a reason for visit of Leg Swelling. Source: Patient, RN/, Old records History of Present Illness 63 year old female with diabetes, neuropathy, retinopathy, chronic diabetic foot ulcer on the left lateral foot following with Dr Pacheco presented to the ED with redness and swelling of her left foot which she noticed on the evening of 02/03/19. She said the the swelling started suddenly along with the redness of the top of her left foot, there was no pain , no fever or chills. She has a chronic wound about 5 x 5 cm on the lateral aspect of left foot which is deep reaching the bones with area significant amount of drainage from it. 5 days ago it was debrided by Dr Pacheco. Xray of foot showed Erosion involving the lateral aspect of the head of the left fifth metatarsal and a soft tissue ulcer lateral to the region of the left fifth metatarsophalangeal joint. She was admitted for osteomyelitis of foot. Home Medications Scheduled Dorzolamide HCl/Timolol Maleat (Dorzolamide-Timolol Eye Drops) 10 Ml Drops, 1 DROP OU BID, (Reported) Duloxetine Hcl (Duloxetine HCl) 30 Mg Capsule.dr, 30 MG PO DAILY, (Reported) Gabapentin (Gabapentin) 400 Mg Capsule, 400 MG PO TID, (Reported) Insulin Aspart (Novolog Flexpen) 100 Unit/1 Ml Insuln.pen, 8 UNITS SC BID, (Reported) BEFORE BREAKFAST AND LUNCH Insulin Aspart (Novolog Flexpen) 100 Unit/1 Ml Insuln.pen, 10 UNITS SC QPM, (Reported) BEFORE DINNER Insulin Detemir (Levemir) 1 Units/0.01 Ml Susp, 50 UNITS SC QPM, (Reported) AFTER DINNER Latanoprost (Xalatan) 0.005% 2.5ML Drops, 1 DROP OU QHS, (Reported) Lisinopril/Hydrochlorothiazide (Lisinopril-Hctz 10-12.5 mg Tab) 1 Each Tablet, 1 TAB PO DAILY, (Reported) Montelukast Sodium (Singulair) 10 Mg Tablet, 10 MG PO QHS, (Reported) Pantoprazole Sodium (Protonix) 40 Mg Tab, 40 MG PO DAILY, (Reported) Warfarin Sodium (Warfarin Sodium) 4 Mg Tab, 4 MG PO 4XWK, (Reported) TU, TH, SAT, SUN Warfarin Sodium (Warfarin Sodium) 4 Mg Tablet, 6 MG PO 3XW, (Reported) MON, WED, MON Scheduled PRN Fexofenadine HCl (Fexofenadine HCl) 180 Mg Tablet, 180 MG PO DAILY PRN for ALLERGY SYMPTOMS, (Reported) Allergies Coded Allergies: heparin (Unverified Allergy, Severe, HEPARIN INDUCED THROMBOCYTOPENIA, 02/04/19) codeine (Unverified Adverse Reaction, Unknown, COMA FOR 5 DAYS, 02/04/19) Past Medical History Medical History CATARACTS DVT LEFT LATERAL FOOT CHRONIC WOUND HTN DIABETES TYPE 2 RIGHT HIP FRACTURE RIGHT HEEL ULCER OSTEOMYELITIS NOW CLOSED VRE INFECTION HEEL ACUTE OSTEOMYELITIS OF THE LEFT HEEL WITH CULTURE POSITIVE FOR PSEUDOMONAS AERUGINOSA AND ENTEROBACTER GLAUCOMA BLINDNESS Surgical History MULTIPLE TOES AMPUTATIONS IN BOTH FEET DEBRIDEMENT OF WOUND TO RIGHT HEEL JANUARY 2016, HYPERBARIC THERAPY RIGHT HIP FRACTURE WITH HEMIARTHROPLASTY JANUARY 2016 HYSTERECTOMY GALL BLADDER REMOVED ANTONY CATARACT SURGERY IN RIGHT EYE FOR GLAUCOMA PICC LINE 2015 REVASC - RIGHT LEG 09/22/2016 LEFT GREAT TOE AMPUTATION 02/2017 REVASC - LEFT LEG 02/2017 RIGHT EYE SURGERY 07/2017 Family History FATHER: , DIAGNOSED WITH HEART DISEASE MOTHER: , DIABETES SIBLINGS: DIABETES 1 BROTHER(S) , 2 SISTER(S) . 2 SON(S) , 1 DAUGHTER(S) - HEALTHY. Social History * Smoker: Denies Alcohol: Denies Drugs: denies A-FIB/CHADSVASC A-FIB History Current/History of A-Fib/PAF?: No Review of Systems Constitutional: Denies: Chills, Fever, Night Sweats Eyes: Denies: Pain, Vision change ENT: Denies: Head Aches, Ear Pain, Dysphagia Skin: Reports: Dry, Breakdown Pulmonary: Denies: Dyspnea, Cough Cardiovascular: Denies: Chest Pain, Palpitations, Orthopnea, Paroxysmal Noc. Dyspnea, Lt Headedness Gastrointestinal: Denies: Nausea, Vomiting, Abdominal Pain, Diarrhea Genitourinary: Denies: Dysuria, Frequency, Incontinence, Retention Hematologic: Denies: Bruising, Bleeding Excessively Musculoskeletal: Reports: Back Pain; Denies: Neck Pain Physical Examination General Exam: Positive: Alert, Cooperative, No Acute Distress Eye Exam: Positive: Ptosis (left eye), Other Eye Symptoms (blind both eyes , can see some light perception on the right eye); Negative: Sclera icteric ENT Exam: Positive: Atraumatic, Mucous membr. moist/pink, Pharynx Normal Neck Exam: Positive: Supple; Negative: JVD, thyromegaly Chest Exam: Positive: Clear to auscultation, Normal air movement Heart Exam: Positive: Rate Normal, Regular Rhythm, Normal S1, Normal S2; Negative: Murmurs, Rubs Abdomen Exam: Positive: Normal bowel sounds, Soft; Negative: Tenderness, Hepatospenomegaly Extremity Exam: Positive: Swelling (left foot), Other (dorsum of left foot, amputatedrightsecond, third toe and possibly first metatarsal bone, on left amputated first toe, second and third toes); Negative: Clubbing, Cyanosis, Edema, Tenderness Skin Exam: Positive: Lesion (5x5cm lesion on the latral aspect of left foot extending to the bone.), Other skin issue (dry thick skin of both the heels with caluses there.) Vital Signs Vital Signs Date Time Temp Pulse Resp B/P (MAP) Pulse Ox O2 Delivery O2 Flow Rate FiO2 02/03/19 22:34 02/03/19 22:14 98.3 84 19 98 Laboratory Data Labs 24H Laboratory Tests 2 02/03/19 23:37: Immature Granulocyte % (Auto) 0.6, White Blood Count 10.9H, Red Blood Count 3.69L, Hemoglobin 10.8L, Hematocrit 34.0L, Mean Corpuscular Volume 92.1, Mean Corpuscular Hemoglobin 29.3, Mean Corpuscular Hemoglobin Concent 31.8L, Red Cell Distribution Width 13.0, Platelet Count 391, Neutrophils (%) (Auto) 74.4H, Lymphocytes (%) (Auto) 14.3L, Monocytes (%) (Auto) 8.2H, Eosinophils (%) (Auto) 2.1, Basophils (%) (Auto) 0.4, Neutrophils # (Auto) 8.1H, Lymphocytes # (Auto) 1.6, Monocytes # (Auto) 0.9H, Eosinophils # (Auto) 0.2, Basophils # (Auto) 0.0, Nucleated Red Blood Cells % (auto) 0.0, Erythrocyte Sedimentation Rate 85H, Prot hrombin Time 24.9H, Prothromb Time International Ratio 2.28, Activated Partial Thromboplast Time 53.9H, Anion Gap 6L, Glomerular Filtration Rate 40.8L, Lactic Acid Level 1.2, Calcium Level 8.2L, Aspartate Amino Transf (AST/SGOT) 13, Alanine Aminotransferase (ALT/SGPT) 18, Alkaline Phosphatase 152H, Total Bilirubin 0.7, Direct Bilirubin 0.2, C-Reactive Protein, Quantitative 14.40H, Total Protein 8.1, Albumin 2.9L, Albumin/Globulin Ratio 0.56L CBC/BMP Laboratory Tests 02/03/19 23:37 Red Blood Count 3.69 L, Mean Corpuscular Volume 92.1, Mean Corpuscular Hemoglobin 29.3, Mean Corpuscular Hemoglobin Concent 31.8 L, Red Cell Distribution Width 13.0, Neutrophils (%) (Auto) 74.4 H, Lymphocytes (%) (Auto) 14.3 L, Monocytes (%) (Auto) 8.2 H, Eosinophils (%) (Auto) 2.1, Basophils (%) (Auto) 0.4, Neutrophils # (Auto) 8.1 H, Lymphocytes # (Auto) 1.6, Monocytes # (Auto) 0.9 H, Eosinophils # (Auto) 0.2, Basophils # (Auto) 0.0 Microbiology Microbiology 02/03/19 Blood Culture, Received Pending 02/03/19 Blood Culture, Received Pending Assessment/Plan 63 year old female with PMH of DVT, diabetes, neuropathy, retinopathy, chronic diabetic foot ulcer on the left lateral foot following with Dr Pacheco presented to the ED with redness and swelling of her left foot which she noticed on the evening of 02/03/19. She said the the swelling started suddenly along with the redness of the top of her left foot, there was no pain , no fever or chills. She has a chronic wound about 5 x 5 cm on the lateral aspect of left foot which is deep reaching the bones with area significant amount of drainage from it. 5 days ago it was debrided by Dr Pacheco. Xray of foot showed Erosion involving the lateral aspect of the head of the left fifth metatarsal and a soft tissue ulcer lateral to the region of the left fifth metatarsophalangeal joint. She was admitted for osteomyelitis of foot. Left foot infected diabetic ulcer with osteomyelitis and cellulitis. will send wound culture give alex consult ID as will probably need long duration of antibiotics consult Dr pacheco for wound care. Diabetes type 2, insulin dependent with neuropathy, retinopathy continue levemir and lispro FS AC and HS. continue cymbalta and gabapentin Hypertension continue lisipril and hctz glaucoma with blindness continue home eye drops DVT INR therapeutic will order coumadin but will hold tomorrow dose as unsure if pateint will need any surgical procedure or not. Plan / VTE VTE Prophylaxis Ordered?: Yes PRAFUL VELAZCO MD Feb 04, 2019 02:22
[2019-02-04 04:00] VITALS: BP 120/52
[2019-02-04] MEDS ORDERED: VANCOMYCIN HCL 1,000 MG, VIAL MATE ADAPTER 1 EACH in D5W 250 ML IV ONE (04:30)
[2019-02-04 06:17] LABS: BASO % 0.3 % (0.0-1.0); EOS # 0.2 10^3/uL (0.0-0.50); EOS % 2.6 % (0.0-3.0); HEMATOCRIT 28.8 % (36.0-47.0); HEMOGLOBIN 9.1 g/dl (12.0-15.5); LYMPH # 1.8 10^3/uL (1.5-4.5); LYMPH % 19.8 % (24.0-44.0); MEAN CORPUSCULAR HEMOGLOBIN 28.5 pg (27.0-33.0); MEAN CORPUSCULAR HGB CONC 31.6 g/dl (32.0-36.5); MEAN CORPUSCULAR VOLUME 90.3 fl (80.0-96.0); MONO # 0.9 10^3/uL (0.0-0.8); MONO % 9.8 % (0.0-5.0); NEUTROPHILS % 67.3 % (36.0-66.0); PLATELET COUNT, AUTOMATED 337 10^3/uL (150-450); RED BLOOD COUNT 3.19 10^6/uL (4.00-5.40); WHITE BLOOD COUNT 8.9 10^3/uL (4.0-10.0)
[2019-02-04 06:26] LABS: INR 2.49; PROTHROMBIN TIME 26.8 SECONDS (11.8-14.0)
[2019-02-04 06:27] LABS: PARTIAL THROMBOPLASTIN TIME 56.4 SECONDS (25.0-38.4)
[2019-02-04 06:38] LABS: CALCIUM LEVEL 8.1 MG/DL (8.8-10.2); CREATININE FOR GFR 1.04 MG/DL (0.55-1.30); GLOMERULAR FILTRATION RATE 56.6 (>45); POTASSIUM SERUM 4.3 MEQ/L (3.5-5.1)
[2019-02-04] MEDS: VANCOMYCIN HCL 1,000 MG, VIAL MATE ADAPTER 1 EACH in D5W 250 ML IV SCH (07:00)
[2019-02-04] MEDS: PIPERACILLIN/TAZOBACTAM SOD 3.375 GM in D5W MINI-BAG PLUS 50 ML IV SCH ×3 (08:00→20:24)
[2019-02-04] MEDS: HumaLOG INSULIN (NovoLOG) PER UNIT SC SCH ×4 (09:13→20:25)
[2019-02-04] MEDS: DULoxetine 30 MG CAP (CYMBALTA) PO SCH (09:14)
[2019-02-04] MEDS: GABAPENTIN 400 MG CAP PO SCH ×3 (09:14→20:24)
[2019-02-04] MEDS: DOCUSATE SODIUM 100 MG CAP PO SCH ×2 (09:14→20:24)
[2019-02-04] MEDS: hydroCHLOROthiazide 12.5 MG CAPSULE PO SCH (09:14)
[2019-02-04] MEDS: PANTOPRAZOLE 40MG TAB (PROTONIX) PO SCH (09:14)
[2019-02-04] MEDS: LISINOPRIL 10 MG TAB PO SCH (09:17)
--- NOTE | 2019-02-04 13:21 | IPNPDOC ---
Date Seen The patient was seen on 02/04/19. Progress Note SUBJECTIVE: Patient reports pain in the L. foot as well as agitated being NPO but otherwise no other complaints. Diet was resumed. Afebrile overnight, no acute events reported. OBJECTIVE PHYSICAL EXAMINATION: VITAL SIGNS: Please see below. General: No acute distress, Alert Eyes: Normal sclera, EOMI, LEOBARDO HENT: Atraumatic, neck supple, moist mucous membranes Cardiovascular: Normal rate, normal rhythm. No murmurs appreciated. Pulmonary: Clear to auscultation b/l, no wheezing GI: Soft, nontender, nondistended MSK: L. foot w s/p partial amputation of 1st and 3rd digit. 5th toe swelling with open wound that was packed tightly. Skin: Warm and dry Neuro: CN grossly intact. No focal deficits. Strengths equal b/l. Psych: oriented x 3 LABORATORY DATA, IMAGING STUDIES, MICROBIOLOGY: Please see below. L. Foot XR- IMPRESSION: Erosion involving the lateral aspect of the head of the left fifth metatarsal and a soft tissue ulcer lateral to the region of the left fifth metatarsophalangeal joint, which are new findings compared to the prior MRI on 03/06/2017 and are suspicious for osteomyelitis. ASSESSMENT AND PLAN: 1. L. foot infected diabetic foot ulcer with Osteomyelitis - f/u Wound and blood cultures. - ESR 85 with evidence of erosion on XR and bone probe. - Follows with Dr. Ledbetter as outpatient and had debridement 5 days prior to presentation. - Podiatry consulted. - Tentatively plan for surgical intervention tomorrow. - c/w Vanc and Zosyn for now. 2. DM - c/w Levemir and ISS coverage. - Accuchecks ACHS. 3. HTN - resume home meds. 4. Glaucoma with blindness - c/w home eye drops 5. DVT on warfarin - INR therapeutic but hold for now with plan for surgical intervention. DVT ppx: Hold warfarin for now. INR therapeutic DVT prophylaxis: HSQ and SCD DISPOSITION: . VS, I&O, 24H, Fishbone Vital Signs/I&O Vital Signs Date Time Temp Pulse Resp B/P (MAP) Pulse Ox O2 Delivery O2 Flow Rate FiO2 02/04/19 09:17 128/76 02/04/19 04:00 97.0 76 18 98 02/04/19 02:52 Room Air I&O- Last 24 Hours up to 6 AM 02/04/19 05:59 Intake Total 550 ml Output Total 0 ml Balance 550 ml Laboratory Data 24H LABS Laboratory Tests 2 02/03/19 23:37: Immature Granulocyte % (Auto) 0.6, White Blood Count 10.9H, Red Blood Count 3.69L, Hemoglobin 10.8L, Hematocrit 34.0L, Mean Corpuscular Volume 92.1, Mean Corpuscular Hemoglobin 29.3, Mean Corpuscular Hemoglobin Concent 31.8L, Red Cell Distribution Width 13.0, Platelet Count 391, Neutrophils (%) (Auto) 74.4H, Lymphocytes (%) (Auto) 14.3L, Monocytes (%) (Auto) 8.2H, Eosinophils (%) (Auto) 2.1, Basophils (%) (Auto) 0.4, Neutrophils # (Auto) 8.1H, Lymphocytes # (Auto) 1.6, Monocytes # (Auto) 0.9H, Eosinophils # (Auto) 0.2, Basophils # (Auto) 0.0, Nucleated Red Blood Cells % (auto) 0.0, Erythrocyte Sedimentation Rate 85H, Prothrombin Time 24.9H, Prothromb Time International Ratio 2.28, Activated Partial Thromboplast Time 53.9H, Anion Gap 6L, Glomerular Filtration Rate 40.8L, Lactic Acid Level 1.2, Calcium Level 8.2L, Aspartate Amino Transf (AST/SGOT) 13, Alanine Aminotransferase (ALT/SGPT) 18, Alkaline Phosphatase 152H, Total Bilirubin 0.7, Direct Bilirubin 0.2, C-Reactive Protein, Quantitative 14.40H, Total Protein 8.1, Albumin 2.9L, Albumin/Globulin Ratio 0.56L 02/04/19 05:41: Immature Granulocyte % (Auto) 0.2, White Blood Count 8.9, Red Blood Count 3.19L, Hemoglobin 9.1L, Hematocrit 28.8L, Mean Corpuscular Volume 90.3, Mean Corpuscular Hemoglobin 28.5, Mean Corpuscular Hemoglobin Concent 31.6L, Red Cell Distribution Width 13.1, Platelet Count 337, Neutrophils (%) (Auto) 67.3H, Lymphocytes (%) (Auto) 19.8L, Monocytes (%) (Auto) 9.8H, Eosinophils (%) (Auto) 2.6, Basophils (%) (Auto) 0.3, Neutrophils # (Auto) 6.0, Lymphocytes # (Auto) 1.8, Monocytes # (Auto) 0.9H, Eosinophils # (Auto) 0.2, Basophils # (Auto) 0.0, Nucleated Red Blood Cells % (auto) 0.0, Prothrombin Time 26.8H, Prothromb Time International Ratio 2.49, Activated Partial Thromboplast Time 56.4H, Anion Gap 5L, Glomerular Filtration Rate 56.6, Calcium Level 8.1L, Blood Urea Nitrogen 26H, Creatinine 1.04, Sodium Level 138, Potassium Level 4.3, Chloride Level 109H, Carbon Dioxide Level 24 02/04/19 11:47: Bedside Glucose (Misc Panel) 187H CBC/BMP Laboratory Tests 02/03/19 23:37 Red Blood Count 3.69 L, Mean Corpuscular Volume 92.1, Mean Corpuscular Hemoglobin 29.3, Mean Corpuscular Hemoglobin Concent 31.8 L, Red Cell Distribution Width 13.0, Neutrophils (%) (Auto) 74.4 H, Lymphocytes (%) (Auto) 14.3 L, Monocytes (%) (Auto) 8.2 H, Eosinophils (%) (Auto) 2.1, Basophils (%) (Auto) 0.4, Neutrophils # (Auto) 8.1 H, Lymphocytes # (Auto) 1.6, Monocytes # (Auto) 0.9 H, Eosinophils # (Auto) 0.2, Basophils # (Auto) 0.0 02/04/19 05:41 Red Blood Count 3.19 L, Mean Corpuscular Volume 90.3, Mean Corpuscular Hemoglobin 28.5, Mean Corpuscular Hemoglobin Concent 31.6 L, Red Cell Distribution Width 13.1, Neutrophils (%) (Auto) 67.3 H, Lymphocytes (%) (Auto) 19.8 L, Monocytes (%) (Auto) 9.8 H, Eosinophils (%) (Auto) 2.6, Basophils (%) (Auto) 0.3, Neutrophils # (Auto) 6.0, Lymphocytes # (Auto) 1.8, Monocytes # (Auto) 0.9 H, Eosinophils # (Auto) 0.2, Basophils # (Auto) 0.0, Calcium Level 8.1 L Microbiology Microbiology 02/03/19 Blood Culture, Received Pending 02/03/19 Blood Culture, Received Pending 02/04/19 Gram Stain - Final, Resulted 02/04/19 Wound Culture, Resulted Pending CHANCE CLEMENT MD Feb 04, 2019 13:21
[2019-02-04 14:00] VITALS: BP 134/63
[2019-02-04] MEDS ORDERED: WARFARIN SOD 4 MG TAB PO SCH (17:00)
--- NOTE | 2019-02-04 18:28 | IPN ---
DATE: 02/04/2019 Time: 5:31 p.m. CHIEF COMPLAINT: This 63-year-old female was seen for evaluation of an ulceration on the lateral aspect of her left foot. The patient has a history of recurrent ulcerations on both feet. The patient has been seen in our office in the past, and she is presently seeing Dr. Ledbetter for this wound on her left foot. The patient states she had her foot debrided, and Dr. Ledbetter advised her it is down to bone but they were going to try to save the foot. Unfortunately, the patient states that on the evening of 02/03/2019, she noticed increased redness and streaking up her leg and went to the emergency room, had x-rays which revealed erosive changes over her present ulceration, was admitted for osteomyelitis of her left foot, and she is seen today for evaluation. HOME MEDICATIONS: - timolol drops - duloxetine 30 mg - gabapentin - insulin - Xalatan - lisinopril hydrochlorothiazide - Singulair - Protonix - warfarin ALLERGIES: HEPARIN, CODEINE. PAST MEDICAL HISTORY: Positive for cataracts, deep vein thrombosis, chronic wounds, hypertension, type 2 diabetes, right hip fracture, right heel ulceration, osteomyelitis - eventually healed, previous amputation of the 2nd and 3rd toes of the right foot and the hallux and 3rd toe of the left foot, glaucoma and blindness. PAST SURGICAL HISTORY: Debridement of osteomyelitis of the right heel, amputation of the hallux and 3rd toe of the left foot and the 2nd and 3rd toes of the right foot, right hip fracture with hemiarthroplasty, hysterectomy, cholecystectomy, bilateral cataract surgery, and eye surgeries. PHYSICAL EXAM: Reveals an alert, well-oriented 63-year-old female in no acute distress. Evaluation of her foot reveals an ulceration present on the lateral aspect of her left foot over the 5th metatarsal head, which is directly visible in the wound. There is some black necrotic changes around this ulceration, which measures 2 cm x 2 cm and approximately 5 mm in depth, extending to bone. Erythema extends around the forefoot to the mid arch level. Dorsalis pedis and posterior tibial pulses are not palpable. Swelling is noted of the left foot. No swelling of the right foot. Patient has hyperkeratotic lesions on the heel but is appropriately offloaded with heel boots. Patient is missing the 2nd and 3rd digits on the right foot from a prior amputation in the posterior aspect of the right heel. This wound is healed on the right foot. Hyperkeratotic lesion is noted on the left heel with the only ulcer being that over the 5th metatarsal (met) head as described. Pedal pulses are not palpable. X-rays were reviewed revealing an ulceration to bone as well as cortical loss of the 5th metatarsal consistent with osteomyelitis. Laboratory studies reveal on admission a white count of 10.9; it is 8.9 today. ESR is 85 on admission. C-reactive protein is 14.4. ASSESSMENT: Osteomyelitis left 5th metatarsal. PLAN: We discussed with the patient a surgical correction consisting of a 5th ray amputation with packing of the wound. We discussed with the patient after several days a delayed primary closure. Patient's questions were answered. Consent was signed. The patient will have surgery tomorrow, approximately around 5:00 p.m. Patient will be nothing by mouth after breakfast. Her questions were answered.
[2019-02-04] MEDS ORDERED: LEVEMIR (INSULIN DETEMIR) 1 UNITS/0.01ML SC SCH (18:30)
[2019-02-04] MEDS: MONTELUKAST 10 MG TAB PO SCH (20:24)
[2019-02-04] MEDS: LATANOPROST 0.005% OPHTH SOLN 2.5 ML OU SCH (20:24)
[2019-02-04 22:00] VITALS: BP 158/64
[2019-02-05] VITALS (7 sets, daily range): BP systolic 124–138; BP diastolic 52–72
[2019-02-05] MEDS: PIPERACILLIN/TAZOBACTAM SOD 3.375 GM in D5W MINI-BAG PLUS 50 ML IV SCH ×4 (02:28→20:42)
[2019-02-05 06:30] LABS: BASO % 0.4 % (0.0-1.0); EOS # 0.3 10^3/uL (0.0-0.50); EOS % 3.6 % (0.0-3.0); HEMATOCRIT 30.9 % (36.0-47.0); HEMOGLOBIN 9.8 g/dl (12.0-15.5); LYMPH # 1.6 10^3/uL (1.5-4.5); LYMPH % 17.7 % (24.0-44.0); MEAN CORPUSCULAR HEMOGLOBIN 28.7 pg (27.0-33.0); MEAN CORPUSCULAR HGB CONC 31.7 g/dl (32.0-36.5); MEAN CORPUSCULAR VOLUME 90.6 fl (80.0-96.0); MONO # 0.8 10^3/uL (0.0-0.8); NEUTROPHILS # 6.3 10^3/uL (1.8-7.7); PLATELET COUNT, AUTOMATED 398 10^3/uL (150-450); RED BLOOD COUNT 3.41 10^6/uL (4.00-5.40); WHITE BLOOD COUNT 9.1 10^3/uL (4.0-10.0)
[2019-02-05] MEDS: VANCOMYCIN HCL 1,000 MG, VIAL MATE ADAPTER 1 EACH in D5W 250 ML IV SCH (06:33)
[2019-02-05 06:42] LABS: INR 2.41; PROTHROMBIN TIME 26.1 SECONDS (11.8-14.0)
[2019-02-05 06:59] LABS: CALCIUM LEVEL 8.5 MG/DL (8.8-10.2); CREATININE FOR GFR 1.07 MG/DL (0.55-1.30); GLOMERULAR FILTRATION RATE 54.8 (>45); POTASSIUM SERUM 4.3 MEQ/L (3.5-5.1)
[2019-02-05] MEDS: HumaLOG INSULIN (NovoLOG) PER UNIT SC SCH ×4 (07:30→20:36)
--- NOTE | 2019-02-05 08:37 | IPNPDOC ---
Date Seen The patient was seen on 02/05/19. Progress Note SUBJECTIVE: Patient denies any complaints today including pain. No acute events reported overnight. Seen by podiatry yesterday, plan for surgery this evening. OBJECTIVE PHYSICAL EXAMINATION: VITAL SIGNS: Please see below. General: No acute distress, Alert Eyes: Normal sclera, EOMI, LEOBARDO HENT: Atraumatic, neck supple, moist mucous membranes Cardiovascular: Normal rate, normal rhythm. No murmurs appreciated. Pulmonary: Clear to auscultation b/l, no wheezing GI: Soft, nontender, nondistended MSK: L. foot w s/p partial amputation of 1st and 3rd digit. 5th toe swelling with open wound that was packed. Skin: Warm and dry Neuro: CN grossly intact. No focal deficits. Strengths equal b/l. Psych: oriented x 3 LABORATORY DATA, IMAGING STUDIES, MICROBIOLOGY: Please see below. L. Foot XR- IMPRESSION: Erosion involving the lateral aspect of the head of the left fifth metatarsal and a soft tissue ulcer lateral to the region of the left fifth metatarsophalangeal joint, which are new findings compared to the prior MRI on 03/06/2017 and are suspicious for osteomyelitis. ASSESSMENT AND PLAN: 1. L. foot infected diabetic foot ulcer with Osteomyelitis - f/u Wound and blood cultures. - ESR 85 with evidence of erosion on XR and bone probe. - Follows with Dr. Ledbetter as outpatient and had debridement 5 days prior to presentation. - Podiatry following, surgery today. - On Vanc and Zosyn. f/u wound and blood cultures. 2. DM - c/w Levemir and ISS coverage. - Accuchecks ACHS. 3. HTN - resume home meds. 4. Glaucoma with blindness - c/w home eye drops 5. DVT on warfarin - INR therapeutic but hold for now with plan for surgical intervention. DVT ppx: Hold warfarin for now. INR therapeutic DVT prophylaxis: HSQ and SCD DISPOSITION: Home once stable post op. VS, I&O, 24H, [place] Vital Signs/I&O Vital Signs Date Time Temp Pulse Resp B/P (MAP) Pulse Ox O2 Delivery O2 Flow Rate FiO2 02/05/19 06:00 97.5 78 20 96 02/04/19 22:00 158/64 (95) 02/04/19 02:52 Room Air I&O- Last 24 Hours up to 6 AM 02/05/19 06:00 Intake Total 2150 ml Output Total 300 ml Balance 1850 ml Laboratory Data 24H LABS Laboratory Tests 2 02/04/19 11:47: Bedside Glucose (Misc Panel) 187H 02/04/19 16:53: Bedside Glucose (Misc Panel) 146H 02/04/19 20:25: Bedside Glucose (Misc Panel) 135H 02/05/19 05:32: Immature Granulocyte % (Auto) 0.3, White Blood Count 9.1, Red Blood Count 3.41L, Hemoglobin 9.8L, Hematocrit 30.9L, Mean Corpuscular Volume 90.6, Mean Corpuscular Hemoglobin 28.7, Mean Corpuscular Hemoglobin Concent 31.7L, Red Cell Distribution Width 13.0, Platelet Count 398, Neutrophils (%) (Auto) 69.0H, Lymphocytes (%) (Auto) 17.7L, Monocytes (%) (Auto) 9.0H, Eosinophils (%) (Auto) 3.6H, Basophils (%) (Auto) 0.4, Neutrophils # (Auto) 6.3, Lymphocytes # (Auto) 1.6, Monocytes # (Auto) 0.8, Eosinophils # (Auto) 0.3, Basophils # (Auto) 0.0, Nucleated Red Blood Cells % (auto) 0.0, Prothrombin Time 26.1H, Prothromb Time International Ratio 2.41, Anion Gap 8, Glomerular Filtration Rate 54.8, Blood Urea Nitrogen 19H, Creatinine 1.07, Sodium Level 139, Potassium Level 4.3, Chloride Level 107, Carbon Dioxide Level 24, Calcium Level 8.5L CBC/BMP Laboratory Tests 02/05/19 05:32 Red Blood Count 3.41 L, Mean Corpuscular Volume 90.6, Mean Corpuscular Hemoglobin 28.7, Mean Corpuscular Hemoglobin Concent 31.7 L, Red Cell Distribution Width 13.0, Neutrophils (%) (Auto) 69.0 H, Lymphocytes (%) (Auto) 17.7 L, Monocytes (%) (Auto) 9.0 H, Eosinophils (%) (Auto) 3.6 H, Basophils (%) (Auto) 0.4, Neutrophils # (Auto) 6.3, Lymphocytes # (Auto) 1.6, Monocytes # (Auto) 0.8, Eosinophils # (Auto) 0.3, Basophils # (Auto) 0.0, Calcium Level 8.5 L Microbiology Microbiology 02/03/19 Blood Culture - Preliminary, Resulted No growth after 24 hours . All specim... 02/03/19 Blood Culture - Preliminary, Resulted No growth after 24 hours . All specim... 02/04/19 Gram Stain - Final, Resulted 02/04/19 Wound Culture, Resulted Pending CHANCE CLEMENT MD Feb 05, 2019 08:37
[2019-02-05] MEDS: GABAPENTIN 400 MG CAP PO SCH ×3 (09:00→20:41)
[2019-02-05] MEDS: DOCUSATE SODIUM 100 MG CAP PO SCH ×2 (09:00→20:41)
[2019-02-05] MEDS: PANTOPRAZOLE 40MG TAB (PROTONIX) PO SCH (09:01)
[2019-02-05] MEDS: LISINOPRIL 10 MG TAB PO SCH (09:01)
[2019-02-05] MEDS: hydroCHLOROthiazide 12.5 MG CAPSULE PO SCH (09:01)
--- NOTE | 2019-02-05 09:01 | CR ---
DATE OF CONSULTATION: 02/04/2019 REASON FOR CONSULTATION: Regarding evaluation of osteomyelitis of the left fifth metatarsal bone. HISTORY OF PRESENT ILLNESS: Mrs. Moreno is a 63-year-old female with a history of insulin-dependent diabetes with neuropathy, retinopathy, legal blindness, and a diabetic foot ulcer that started about a month prior to admission. That ulcer was on the left lateral foot. The patient had been followed up with Dr. Ledbetter for debridement. On February 03, noticed increased swelling and redness of the left foot with extension to the leg and therefore she presented to the hospital. There was no pain due to neuropathy. No fever or chills. No nausea, vomiting or diarrhea. The patient was started on broad-spectrum antibiotics, including IV vancomycin and Zosyn. X-ray of the foot showed erosion of the lateral aspect of the head of the left fifth metatarsal and an ulcer. There is foul-smelling discharge. The patient was admitted for osteomyelitis and consultation with podiatry is pending. PAST MEDICAL HISTORY: Insulin-dependent diabetes, diabetic neuropathy, retinopathy, bilateral calcaneal osteomyelitis with ulcerations of both heels, finally both have healed up and the patient has been walking with a walker at home for the past 2 months hypertension, right hip fracture, bilateral heel osteomyelitis, glaucoma, peripheral vascular disease, history of herpes encephalitis. PAST SURGICAL HISTORY: Multiple toe amputations done by Dr. Ledbetter, multiple debridements for bilateral heel osteomyelitis, right hip fracture with hemiarthroplasty January 2018, hysterectomy, cholecystectomy, cataract surgery, right eye glaucoma surgery, revascularization of right leg in September 2016, left great toe amputation in February 2017. SOCIAL HISTORY: She is . She lives with her . She is mostly in a wheelchair, but she is now ambulating with the help of a walker at home. She does not drink, smoke or use drugs. LABORATORIES: White count on admission was 10.9, today 8.9, hemoglobin 9.1, hematocrit 28.8, platelets 337, 67% neutrophils, 20% lymphocytes, 9% monocytes. ESR 85. Sodium 138, potassium 4.3, chloride 109, bicarbonate 24, BUN 26 creatinine 1.04, glucose 137, calcium 8.1 and CRP 14.4. PT 26.8, PTT 56.4. Blood cultures, two sets, are pending. Gram stain on the left foot has many gram positive cocci in pairs and clusters, few gram-negative rods, culture is pending. IMAGING STUDIES: Foot x-ray shows erosion in the lateral aspect of the head of the left fifth metatarsal, which is new compared to MRI done 02/2017. PHYSICAL EXAMINATION: On physical exam, temperature is 98.7, pulse 77, respirations 19, blood pressure 134/63, O2 sat 98% on room air. Heart: Normal S1, S2 with no murmurs, rubs or gallops. Lungs are clear. No wheezes or rhonchi. Abdomen: Obese, soft, nontender. Extremities: +1 ankle edema bilaterally. Multiple toe amputations of both feet. Left foot has fourth and fifth toe that are intact but there is an ulcer along the left first metatarsal measuring about 3 x 2 cm with purulent drainage, necrotic base. Pulses diminished. She has bilateral scabs on heels that are closed, dry and calloused heels but no purulent discharge and no redness or tenderness of the heels. IMPRESSION: Acute osteomyelitis of the left fifth metatarsal in a patient with history of diabetic neuropathy, chronic osteomyelitis of bilateral calcaneus that has now healed, poor healing. The patient is currently on broad-spectrum antibiotics, including IV vancomycin and Zosyn, which is appropriate coverage. She has a history of multiple drug resistant organisms. ALLERGIES: CODEINE and HEPARIN. MEDICATIONS: - Xalatan one drop OU at night - montelukast 10 mg by mouth at night - insulin 50 units subcutaneous daily - Colace 100 mg by mouth twice a day - gabapentin 400 mg by mouth three times a day - pantoprazole 40 mg by mouth daily - lisinopril 10 mg daily - hydrochlorothiazide 12.5 mg daily - duloxetine 30 mg daily - Zosyn 3.375 grams IV every 6 hours - vancomycin 1 gram IV every 24 hours - insulin sliding scale - milk of magnesia as needed - Mylanta as needed PLAN Continue with current antibiotics. We will decide on de-escalation regimen once cultures are available. I agree with the consultation with Dr. Raya. The patient will probably benefit from reamputation of the fifth toe. The patient had very poor healing and I suspect this would give her a better chance with healing and less broad spectrum antibiotics. She has a history of bilateral calcaneus osteomyelitis that took over 2 years to heal. [facility]
[2019-02-05] MEDS: DULoxetine 30 MG CAP (CYMBALTA) PO SCH (09:02)
[2019-02-05] MEDS: VANCOMYCIN HCL 500 MG in D5W MINI-BAG PLUS 100 ML IV SCH (10:41)
[2019-02-05] MEDS ORDERED: LIDOCAINE 2% MDV 20 ML VIAL As Ordered ONE (14:06)
[2019-02-05] MEDS ORDERED: BUPIVACAINE HCL 0.5% 10 ML VIAL As Ordered ONE (14:06)
[2019-02-05] MEDS ORDERED: GENTAMICIN SULF INJ 80MG/2ML VIAL (J1580) As Ordered ONE ×2 (14:07→16:47)
--- NOTE | 2019-02-05 14:26 | PHACANCOPD ---
PHARMACY VANCOMYCIN DOSING Pt Demographics Demographics Patient Age:63 , Weight:98.600 , Gender: female Adjusted Body Weight Date: 02/05/19, Adjusted Body Weight: Kg Events Past 24 Hours Events Past 24 Hours: NO: Dialysis, Diuretic Therapy, Change in CrCl, Fever, Elevation in WBC, Pending Diagnostics, Pending Procedures, Other Vancomycin Vancomycin indication: Osteomylitis Vancomycin Target Ranges: 15-20 mcg/ml Vancomycin Load Y/N: Yes Load Dose Date Time Vancomycin Load Dose: Date: Time: Vancomycin Dose Date: 02/05/19. Current Vancomycin Dose: [1500mg iv q24h@07] Intermittent Dosing?: No Labs Labs Item Value Date Time White Blood Count 10.9 10^3/uL H 02/03/192336 White Blood Count 8.9 10^3/uL 02/04/19 0541 White Blood Count 9.1 10^3/uL 02/05/19 0532 Erythrocyte Sedimentation Rate 85 mm/hr H 02/03/192336 Creatinine 1.04 MG/DL 02/04/19 0541 Creatinine 1.38 MG/DL H 02/03/192336 Creatinine 1.07 MG/DL 02/05/19 0532 C-Reactive Protein, Quantitative 14.40 MG/DL H 02/03/19 2337 Vital Signs Label Value Date Time Patient Temperature 97.9 degrees F 02/05/19 1400 Temperature Source Temporal 02/05/19 1400 Micro Microbiology 02/03/19 Blood Culture - Preliminary, Resulted No growth after 24 hours . All specim... 02/03/19 Blood Culture - Preliminary, Resulted 02/04/19 Gram Stain - Final, Resulted 02/04/19 Wound Culture, Resulted Pending Creatinine Clearance Date:02/05/19. Creatinine Clearance: . Assessment and Plan Maintaining Current Dose?: Yes Reason for dose change: Change in serum Cr Pharmacist Note Pharmacist Note Date: 02/05/19. Pharmacist note: Today is day #2 of empiric treatment of osteomylitis with Vancomycin and zosyn. The patient was loaded yesterday on 2000mg of Vancomycin then continued on 1gm IV q24h. Today his dose was increased due to improving SCR and body weight. He has a preliminary blood culture that is growing gram + cocci in clusters and he has a wound culture pending. His WBC has improved and he is afebrile. There is a trough scheduled for tomorrow morning. We will continue to monitor and make adjustments as necessary. [facility] Feb 05, 2019 14:26
[2019-02-05 14:46] LABS: C REACTIVE PROTEIN QUANTITATIV 11.8 MG/DL (0.00-0.30)
[2019-02-05 16:42] LABS: PROTHROMBIN TIME 22.4 SECONDS (11.8-14.0)
--- NOTE | 2019-02-05 16:59 | IPN ---
INFECTIOUS DISEASE PROGRESS NOTE: DATE: 02/05/2019 SUBJECTIVE: Patient examined at bedside. Has no new complaints. Is scheduled to undergo amputation of the left fifth metatarsal and debridement later today. No fever, chills, or events overnight. She continues on IV vancomycin and Zosyn with one positive blood culture of gram positive cocci in clusters, and wound culture with gram positive cocci and gram negative rods. Is otherwise doing well without any complaints. PHYSICAL EXAMINATION: VITALS: Temperature 97.5, pulse 78, respirations 20, blood pressure 124/62, mean arterial pressure (MAP) of 82. Pulse oximetry 96% on room air. GENERAL: Resting comfortably in bed. No acute distress. Alert and oriented times three. Fully conversant. CARDIAC: Normal S1, S2. Without any appreciable murmurs or clicks. LUNGS: Clear bilaterally without any adventitious sounds. ABDOMEN: Soft, nontender. Nondistended with normoactive bowel sounds. EXTREMITIES: Trace edema bilaterally. Left toe is in a boot with multiple amputations of that foot. Lateral plantar aspect of the foot is under a dressing which was removed with 3 x 2 cm ulcer with purulent drainage on the bandage. MUSCULOSKELETAL: Range of motion and strength intact throughout. SKIN: No other visible lesions or rashes. LABS: WBC 9.1, hemoglobin and hematocrit 9.8, 30.9. Platelets 398. Sodium and potassium 139 and 4.3. BUN and creatinine 19 and 1.07. CRP is down from 14.4 to 11.8. ASSESSMENT AND PLAN: Acute osteomyelitis of the left 5th metatarsal in the setting of diabetic neuropathy, uncontrolled diabetes and chronic osteomyelitis of the calcaneus with delayed healing. She is scheduled to go to the OR later today for possible amputation and debridement of the affected bone and soft tissue. She has one of two blood cultures that is growing gram positive cocci in clusters and wound culture reveals many gram positive cocci in pairs and clusters along with a few gram negative rods. Continue coverage with IV vancomycin and Zosyn. Will consider narrowing down antibiotics postoperatively. CRPs trending down and she is overall clinically doing well. My faculty preceptor for this patient encounter was physically present during the encounter and was fully available. All aspects of the patient interview, examination, medical decision making process, and medical care plan development were reviewed and approved by the faculty preceptor. The faculty preceptor is aware and concurs with the plan as stated in the body of this note and will attest to such by his/her co-signature.
[2019-02-05] MEDS ORDERED: WARFARIN SOD 4 MG TAB PO SCH (17:00)
[2019-02-05] MEDS ORDERED: fentaNYL 100 MCG/2 ML INJECTION (J3010) As Ordered ONE (17:11)
[2019-02-05] MEDS ORDERED: LIDOCAINE 2% INJ 100 MG/5 ML SDV (FOR ANES.) As Ordered ONE (17:11)
[2019-02-05] MEDS ORDERED: MIDAZOLAM INJ 2 MG/2 ML VIAL (J2250) As Ordered ONE (17:11)
[2019-02-05] MEDS ORDERED: PROPOFOL 200 MG/20 ML VIAL As Ordered ONE (17:11)
[2019-02-05] MEDS ORDERED: PHENYLephrine HCL 500 MCG/5 ML (100MCG/ML) SYRINGE (J2370) As Ordered ONE (17:22)
[2019-02-05] MEDS ORDERED: PERCOCET 5MG/325MG TAB As Ordered ONE (17:51)
[2019-02-05] MEDS ORDERED: KETOROLAC 30 MG/ML VIAL (J1885) IV PRN (18:00)
[2019-02-05] MEDS ORDERED: diphenhydrAMINE INJ 50MG/ML VIAL (J1200) IV PRN (18:00)
[2019-02-05] MEDS ORDERED: MEPERIDINE INJ 25 MG/ML VIAL (J2175) IV PRN (18:00)
[2019-02-05] MEDS ORDERED: oxyCODONE 5MG TAB PO PRN (18:00)
[2019-02-05] MEDS ORDERED: LR 1,000 ML IV SCH (18:00)
[2019-02-05] MEDS ORDERED: PERCOCET 5MG/325MG TAB PO PRN (18:00)
[2019-02-05] MEDS ORDERED: NALBUPHINE HCL 10 MG/ML AMP (J2300) IV PRN (18:00)
[2019-02-05] MEDS ORDERED: fentaNYL 100 MCG/2 ML INJECTION (J3010) IV PRN (18:00)
[2019-02-05] MEDS ORDERED: NORCO, ANEXSIA 5/325MG TABLET (HYDROcodone/ACETAMINOPHEN) PO PRN (18:00)
[2019-02-05] MEDS ORDERED: ONDANSETRON 4MG/2ML VIAL (J2405) IV PRN (18:00)
[2019-02-05] MEDS ORDERED: HYDROMORPHONE HCL 0.5 MG/ 0.5 ML SYRINGE (J1170 PER 1) IV PRN (18:00)
[2019-02-05] MEDS ORDERED: MORPHINE 10 MG/ML 1ML VIAL (J2270) IV PRN (18:00)
[2019-02-05] MEDS ORDERED: PROMETHAZINE INJ 25 MG/ML VIAL (J2550) IV PRN (18:00)
[2019-02-05] MEDS ORDERED: METOCLOPRAMIDE INJ 10MG/2ML VIAL (J2765) IV PRN (18:00)
[2019-02-05] MEDS: LEVEMIR (INSULIN DETEMIR) 1 UNITS/0.01ML SC SCH (18:49)
[2019-02-05] MEDS: MONTELUKAST 10 MG TAB PO SCH (20:41)
[2019-02-05] MEDS: LATANOPROST 0.005% OPHTH SOLN 2.5 ML OU SCH (20:42)
[2019-02-06 02:00] VITALS: BP 124/70
[2019-02-06] MEDS: PIPERACILLIN/TAZOBACTAM SOD 3.375 GM in D5W MINI-BAG PLUS 50 ML IV SCH ×4 (02:28→20:12)
[2019-02-06 06:00] VITALS: BP 147/70
[2019-02-06 06:31] LABS: BASO % 0.4 % (0.0-1.0); EOS # 0.3 10^3/uL (0.0-0.50); EOS % 4.2 % (0.0-3.0); HEMATOCRIT 26.5 % (36.0-47.0); HEMOGLOBIN 8.4 g/dl (12.0-15.5); LYMPH # 1.3 10^3/uL (1.5-4.5); LYMPH % 17.8 % (24.0-44.0); MEAN CORPUSCULAR HEMOGLOBIN 28.6 pg (27.0-33.0); MEAN CORPUSCULAR HGB CONC 31.7 g/dl (32.0-36.5); MEAN CORPUSCULAR VOLUME 90.1 fl (80.0-96.0); MONO # 0.7 10^3/uL (0.0-0.8); MONO % 8.9 % (0.0-5.0); NEUTROPHILS % 68.4 % (36.0-66.0); PLATELET COUNT, AUTOMATED 320 10^3/uL (150-450); RED BLOOD COUNT 2.94 10^6/uL (4.00-5.40); WHITE BLOOD COUNT 7.3 10^3/uL (4.0-10.0)
[2019-02-06 06:44] LABS: INR 2.12; PROTHROMBIN TIME 23.5 SECONDS (11.8-14.0)
[2019-02-06 06:58] LABS: CALCIUM LEVEL 8.2 MG/DL (8.8-10.2); CREATININE FOR GFR 1.03 MG/DL (0.55-1.30); GLOMERULAR FILTRATION RATE 57.3 (>45); POTASSIUM SERUM 4.2 MEQ/L (3.5-5.1); VANCOMYCIN LEVEL TROUGH 12.4 UG/ML (10.0-20.0)
[2019-02-06] MEDS: HumaLOG INSULIN (NovoLOG) PER UNIT SC SCH ×4 (07:30→20:12)
--- NOTE | 2019-02-06 07:30 | PHACANCOPD ---
PHARMACY VANCOMYCIN DOSING Pt Demographics Demographics Patient Age:63 , Weight:99.000 , Gender: female Adjusted Body Weight Date: 02/05/19, Adjusted Body Weight: Kg Vancomycin Vancomycin indication: Osteomylitis Vancomycin Target Ranges: 15-20 mcg/ml Vancomycin Load Y/N: Yes Load Dose Date Time Vancomycin Load Dose: Date: Time: Vancomycin Dose Date: 02/05/19. Current Vancomycin Dose: [1500mg iv q24h@07] Intermittent Dosing?: No Labs Micro Microbiology 02/03/19 Blood Culture - Preliminary, Resulted No Growth after 48 hours. All Specime... 02/03/19 Blood Culture - Preliminary, Resulted 02/05/19 Gram Stain - Final, Resulted 02/05/19 Wound Culture, Resulted Pending 02/05/19 Anaerobic Culture, Resulted Pending 02/04/19 Gram Stain - Final, Resulted 02/04/19 Wound Culture, Resulted Pending Creatinine Clearance Date:02/05/19. Creatinine Clearance: . Assessment and Plan Maintaining Current Dose?: Yes Reason for dose change: No Dose Change Pharmacist Note Pharmacist Note 02/06/19: Day #3 empiric vancomycin therapy. Trough level today resulted at 12.4mcg/ml prior to the 3rd dose, however, this level is not yet reflective of steady-state. We will continue the patient on her current regimen of 1500mg IV q24h, continue to monitor her renal function, and draw a follow-up level accordingly when the level is more reflective of steady-state. Date: 02/05/19. Pharmacist note: Today is day #2 of empiric treatment of osteomylitis with Vancomycin and zosyn. The patient was loaded yesterday on 2000mg of Vancomycin then continued on 1gm IV q24h. Today his dose was increased due to improving SCR and body weight. He has a preliminary blood culture that is growing gram + cocci in clusters and he has a wound culture pending. His WBC has improved and he is afebrile. There is a trough scheduled for tomorrow morning. We will continue to monitor and make adjustments as necessary. LENCHO ELDER [facility] Feb 06, 2019 07:30
[2019-02-06] MEDS: VANCOMYCIN HCL 1,000 MG, VIAL MATE ADAPTER 1 EACH in D5W 250 ML IV SCH (07:36)
--- NOTE | 2019-02-06 08:38 | RO ---
DATE OF PROCEDURE: 02/05/2019 PREPROCEDURE DIAGNOSIS: Osteomyelitis of the fifth metatarsal, left foot. POSTPROCEDURE DIAGNOSIS: Osteomyelitis of the fifth metatarsal, left foot. PROCEDURE PERFORMED: Partial fifth ray amputation of the left foot. SURGEON: Serg Raya DPM SENSOR TECHNICIAN: None ANESTHESIA: Local MAC. IRRIGATION: Dilute vancomycin solution 3 liters with a low pressure pulse lavage system. HEMOSTASIS: None. ESTIMATED BLOOD LOSS: Less than 50 mL. DESCRIPTION OF PROCEDURE: On 02/05/2019, this 63-year-old female was taken from her hospital room and to the operating room and placed supine on the operating room table in the supine position. Following the induction of IV sedation, local and regional anesthesia, the left lower extremity was prepped and draped in the usual aseptic manner. Attention was directed to the patient's left foot where there was noted to be an ulceration over the fifth metatarsal head. At this time, an elliptical incision was placed, ending at the proximal interphalangeal joint of the fifth toe in a modified fishmouth incision and the ulcer was debrided to bone. The dorsal incision was carried down to the mid shaft of the fifth metatarsal. The fifth toe was disarticulated and removed. Utilizing a metatarsal elevator, the soft tissue was removed from the lateral and medial margins of the fifth ray and an osteotomy was made in the distal shaft of the fifth metatarsal biased in a dorsal to plantar direction and a medial to lateral direction. The bone was then sent to pathology for aerobic and anaerobic. The wound was flushed with 3 liters of dilute gentamicin solution with a low pressure pulse lavage system. All bleeders as encountered were electrocoagulated. The wound was packed with 1/2 inch iodoform gauze and utilizing three stitches of 4-0 nylon to prevent retraction of the skin margins for a delayed primary closure. Orders were written to change the bandage once a day, pulling the packing and placing in the wound Drytec rope. We will continue her present antibiotics until a culture becomes available. TERESA
[2019-02-06] MEDS ORDERED: LIDOCAINE 1% MDV 20ML VIAL As Ordered ONE (09:10)
[2019-02-06] MEDS: GABAPENTIN 400 MG CAP PO SCH ×3 (10:29→20:12)
[2019-02-06] MEDS: LISINOPRIL 10 MG TAB PO SCH (10:29)
[2019-02-06] MEDS: VANCOMYCIN HCL 500 MG in D5W MINI-BAG PLUS 100 ML IV SCH (10:29)
[2019-02-06] MEDS: PANTOPRAZOLE 40MG TAB (PROTONIX) PO SCH (10:30)
[2019-02-06] MEDS: DULoxetine 30 MG CAP (CYMBALTA) PO SCH (10:30)
[2019-02-06] MEDS: hydroCHLOROthiazide 12.5 MG CAPSULE PO SCH (10:30)
[2019-02-06] MEDS: DOCUSATE SODIUM 100 MG CAP PO SCH ×2 (10:32→20:12)
[2019-02-06] MEDS ORDERED: SODIUM CHLORIDE 0.9% INJ 10 ML SYR IV PRN (12:00)
--- NOTE | 2019-02-06 13:06 | IPNPDOC ---
Date Seen The patient was seen on 02/06/19. Progress Note SUBJECTIVE: Patient denies any complaints today including pain. No acute events reported overnight. Seen by podiatry yesterday, plan for surgery this evening. OBJECTIVE PHYSICAL EXAMINATION: VITAL SIGNS: Please see below. General: No acute distress, Alert Eyes: Normal sclera, EOMI, LEOBARDO HENT: Atraumatic, neck supple, moist mucous membranes Cardiovascular: Normal rate, normal rhythm. No murmurs appreciated. Pulmonary: Clear to auscultation b/l, no wheezing GI: Soft, nontender, nondistended MSK: L. foot w s/p partial amputation of 1st and 3rd digit. 5th toe swelling with open wound that was packed. Skin: Warm and dry Neuro: CN grossly intact. No focal deficits. Strengths equal b/l. Psych: oriented x 3 LABORATORY DATA, IMAGING STUDIES, MICROBIOLOGY: Please see below. L. Foot XR- IMPRESSION: Erosion involving the lateral aspect of the head of the left fifth metatarsal and a soft tissue ulcer lateral to the region of the left fifth metatarsophalangeal joint, which are new findings compared to the prior MRI on 03/06/2017 and are suspicious for osteomyelitis. ASSESSMENT AND PLAN: 1. L. foot infected diabetic foot ulcer with Osteomyelitis - s/p partial 5th ray amputation of L. foot. - ESR 85 with evidence of erosion on XR and bone probe. - Follows with Dr. Ledbetter as outpatient and had debridement 5 days prior to presentation. - Podiatry following, - On Vanc and Zosyn. Wound culture w/Klebsiella, s. aureus, corynebacterium. Blood cultures with GPC in clusters x1. f/u ID and sensitivities. 2. DM - c/w Levemir and ISS coverage. Levemir 55 daily at home, had been reduced to 35 units daily due to AM hypoglycemia. - Accuchecks ACHS. 3. HTN - resume home meds. 4. Glaucoma with blindness - c/w home eye drops 5. DVT on warfarin - Had been on held for surgery. resume this evening. DVT ppx: warfarin. DVT prophylaxis: warfarin SCD DISPOSITION: Home once stable post op. VS, I&O, 24H, Fishbone Vital Signs/I&O Vital Signs Date Time Temp Pulse Resp B/P (MAP) Pulse Ox O2 Delivery O2 Flow Rate FiO2 02/06/19 10:29 146/94 02/06/19 06:00 97.5 64 18 97 02/04/19 02:52 Room Air I&O- Last 24 Hours up to 6 AM 02/06/19 06:00 Intake Total 1565 ml Output Total 750 ml Balance 815 ml Laboratory Data 24H LABS Laboratory Tests 2 02/05/19 14:56: Prothrombin Time 22.4H, Prothromb Time International Ratio 2.00 02/05/19 18:25: Bedside Glucose (Misc Panel) 92 02/05/19 20:28: Bedside Glucose (Misc Panel) 188H 02/06/19 05:29: Prothrombin Time 23.5H, Prothromb Time International Ratio 2.12, Immature Granulocyte % (Auto) 0.3, White Blood Count 7.3, Red Blood Count 2.94L, Hemoglobin 8.4L, Hematocrit 26.5L, Mean Corpuscular Volume 90.1, Mean Corpuscular Hemoglobin 28.6, Mean Corpuscular Hemoglobin Concent 31.7L, Red Cell Distribution Width 12.8, Platelet Count 320, Neutrophils (%) (Auto) 68.4H, Lymphocytes (%) (Auto) 17.8L, Monocytes (%) (Auto) 8.9H, Eosinophils (%) (Auto) 4.2H, Basophils (%) (Auto) 0.4, Neutrophils # (Auto) 5.0, Lymphocytes # (Auto) 1.3L, Monocytes # (Auto) 0.7, Eosinophils # (Auto) 0.3, Basophils # (Auto) 0.0, Nucleated Red Blood Cells % (auto) 0.0, Anion Gap 5L, Glomerular Filtration Rate 57.3, Blood Urea Nitrogen 20H, Creatinine 1.03, Sodium Level 136, Potassium Level 4.2, Chloride Level 105, Carbon Dioxide Level 26, Calcium Level 8.2L, Vancomycin Level Trough 12.4 02/06/19 11:26: Bedside Glucose (Misc Panel) 232H CBC/BMP Laboratory Tests 02/06/19 05:29 Red Blood Count 2.94 L, Mean Corpuscular Volume 90.1, Mean Corpuscular Hemoglo bin 28.6, Mean Corpuscular Hemoglobin Concent 31.7 L, Red Cell Distribution Width 12.8, Neutrophils (%) (Auto) 68.4 H, Lymphocytes (%) (Auto) 17.8 L, Monocytes (%) (Auto) 8.9 H, Eosinophils (%) (Auto) 4.2 H, Basophils (%) (Auto) 0.4, Neutrophils # (Auto) 5.0, Lymphocytes # (Auto) 1.3 L, Monocytes # (Auto) 0.7, Eosinophils # (Auto) 0.3, Basophils # (Auto) 0.0, Calcium Level 8.2 L Microbiology Microbiology 02/03/19 Blood Culture - Preliminary, Resulted No Growth after 48 hours. All Specime... 02/03/19 Blood Culture - Preliminary, Resulted 02/05/19 Gram Stain - Final, Resulted 02/05/19 Wound Culture - Preliminary, Resulted Staphylococcus Aureus 02/05/19 Anaerobic Culture, Resulted Pending 02/04/19 Gram Stain - Final, Resulted 02/04/19 Wound Culture - Preliminary, Resulted Klebsiella Pneumoniae Staphylococcus Aureus Staphylococcus Sp Coag Neg Corynebacterium Species CHANCE CLEMENT MD Feb 06, 2019 13:06
--- NOTE | 2019-02-06 16:40 | REP ---
PICC line insertion under ultrasound guidance. The procedure was performed by MARY Morel, under the direct supervision of Dr. Jonas. The risks and benefits of the procedure were explained to the patient and informed consent was obtained the verbally and written. Directly prior to the start of the procedure, a formal timeout was completed in the procedure room. The right basilic vein was localized using ultrasound guidance. The skin was prepped and draped in the sterile fashion. 3 ml 1% lidocaine was used as a local anesthetic. Using ultrasound guidance the right basilic vein was cannulated and a 0.018 guidewire was inserted and advanced to the SVC using fluoroscopic guidance. The needle was removed and a 4.5 Kittitian dilator and peel-away sheath was inserted over the guidewire. A 4.5 Kitt[place] single lumen catheter was cut to the length of 37 cm. The dilator was removed and the catheter was inserted over the guide wire with the tip ending in the SVC. The peel-away sheath was removed and the catheter was flushed with heparinized saline as per hospital protocol. The catheter was affixed to the skin and a sterile dressing was applied. The patient tolerated the procedure well and there were no immediate complications. 1.2 minutes of fluoroscopy time was utilized for this procedure. Some fluoroscopic images are performed with last image hold technology. These images require no additional radiation. Reviewed by MARY Israel 02/06/2019 04:12 P Electronically Signed by Maurice Jonas MD 02/06/2019 04:31 P
[2019-02-06] MEDS: SODIUM CHLORIDE 0.9% INJ 10 ML SYR IV SCH (17:29)
[2019-02-06] MEDS: LEVEMIR (INSULIN DETEMIR) 1 UNITS/0.01ML SC SCH (17:29)
[2019-02-06] MEDS: MONTELUKAST 10 MG TAB PO SCH (20:12)
[2019-02-06] MEDS: LATANOPROST 0.005% OPHTH SOLN 2.5 ML OU SCH (20:12)
[2019-02-06 22:00] VITALS: BP 123/68
[2019-02-07] MEDS: PIPERACILLIN/TAZOBACTAM SOD 3.375 GM in D5W MINI-BAG PLUS 50 ML IV SCH ×4 (01:41→21:34)
[2019-02-07 05:58] LABS: BASO % 0.5 % (0.0-1.0); EOS # 0.3 10^3/uL (0.0-0.50); EOS % 5.3 % (0.0-3.0); HEMATOCRIT 26.5 % (36.0-47.0); HEMOGLOBIN 8.3 g/dl (12.0-15.5); LYMPH # 1.2 10^3/uL (1.5-4.5); LYMPH % 21.2 % (24.0-44.0); MEAN CORPUSCULAR HEMOGLOBIN 28.3 pg (27.0-33.0); MEAN CORPUSCULAR HGB CONC 31.3 g/dl (32.0-36.5); MEAN CORPUSCULAR VOLUME 90.4 fl (80.0-96.0); MONO # 0.5 10^3/uL (0.0-0.8); MONO % 8.2 % (0.0-5.0); NEUTROPHILS # 3.8 10^3/uL (1.8-7.7); NEUTROPHILS % 64.6 % (36.0-66.0); PLATELET COUNT, AUTOMATED 316 10^3/uL (150-450); RED BLOOD COUNT 2.93 10^6/uL (4.00-5.40); WHITE BLOOD COUNT 5.9 10^3/uL (4.0-10.0)
[2019-02-07 06:00] VITALS: BP 135/63
[2019-02-07 06:09] LABS: INR 1.59; PROTHROMBIN TIME 18.7 SECONDS (11.8-14.0)
[2019-02-07 06:17] LABS: CALCIUM LEVEL 8.3 MG/DL (8.8-10.2); CREATININE FOR GFR 1.05 MG/DL (0.55-1.30); POTASSIUM SERUM 4.1 MEQ/L (3.5-5.1)
[2019-02-07] MEDS: SODIUM CHLORIDE 0.9% INJ 10 ML SYR IV SCH ×2 (06:19→17:57)
[2019-02-07] MEDS: VANCOMYCIN HCL 1,000 MG, VIAL MATE ADAPTER 1 EACH in D5W 250 ML IV SCH ×2 (06:19→06:40)
[2019-02-07] MEDS: LISINOPRIL 10 MG TAB PO SCH (09:11)
[2019-02-07] MEDS: DULoxetine 30 MG CAP (CYMBALTA) PO SCH (09:11)
[2019-02-07] MEDS: hydroCHLOROthiazide 12.5 MG CAPSULE PO SCH (09:11)
[2019-02-07] MEDS: DOCUSATE SODIUM 100 MG CAP PO SCH ×2 (09:11→21:33)
[2019-02-07] MEDS: GABAPENTIN 400 MG CAP PO SCH ×3 (09:11→21:33)
[2019-02-07] MEDS: PANTOPRAZOLE 40MG TAB (PROTONIX) PO SCH (09:11)
[2019-02-07] MEDS: HumaLOG INSULIN (NovoLOG) PER UNIT SC SCH ×4 (09:12→21:00)
[2019-02-07] MEDS: VANCOMYCIN HCL 500 MG in D5W MINI-BAG PLUS 100 ML IV SCH (09:16)
[2019-02-07] MEDS: LACTOBACILLUS ACIDOPHILUS CAP (BACID) PO SCH ×2 (12:18→21:33)
[2019-02-07 14:00] VITALS: BP 155/62
--- NOTE | 2019-02-07 17:57 | IPN ---
DATE: 02/07/2019 Leatha is doing great. She is hoping to go Monday, at the latest Monday. According to Dr. Raya, he probably would discharge her on Monday. Tomorrow the plan would be to take her back to the operating room (OR) for closure of the wound. She had a partial 5th ray amputation of the left foot. She denies any fever or chills. No nausea, vomiting, or diarrhea. No abdominal pain. LABORATORY DATA: White count is 5.9, hemoglobin 8.3, hematocrit 26.5, platelets 316. Sodium 134, potassium 4.1, chloride 104, bicarbonate 25, BUN 21, creatinine 1.05, glucose 132. CRP was 14.4 on admission, 11.8 yesterday. Foot culture on February 04 had Klebsiella pneumoniae, Staphylococcus aureus, Staphylococcus coagulase negative Corynebacterium species, and intraoperative culture had only methicillin-sensitive Staphylococcus aureus (MSSA). IMPRESSION: 1. Acute osteomyelitis of the 5th toe of the left foot along with cellulitis of the foot, most likely caused by MSSA. The patient is doing well status post 5th ray reamputation. 2. Insulin-dependent diabetes. Legally blind. PLAN: Discontinue IV vancomycin. Continue IV Zosyn until tomorrow. The patient could be switched postoperatively to Keflex 500 mg by mouth four times a day for 1 week post discharge. I agree with hopefully discharging the patient in the next 24-48 hours. Discharged home on by mouth Keflex 500 mg by mouth four times a day for 7 days. Infectious disease signing off. She does not need infectious disease (ID) followup. She can follow up with Dr. Raya, as there is no residual bone infection.
[2019-02-07] MEDS: LEVEMIR (INSULIN DETEMIR) 1 UNITS/0.01ML SC SCH (17:58)
--- NOTE | 2019-02-07 21:18 | IPNPDOC ---
Subjective Date Seen The patient was seen on 02/07/19. Subjective Chief Complaint/HPI 63-year-old female with history of diabetes, peripheral vascular disease, remote pulmonary embolus on warfarin, and hypertension. Patient was admitted with osteomyelitis of the left foot, status post partial amputation. Patient has no complaints, is anxious to be discharged. Plan is for wound closure in the OR tomorrow General: Reports: Normal Appetite; Denies: Chills, Night Sweats, Fatigue, Malaise Constitutional: Denies: Chills, Fever, Night Sweats Eyes: Denies: Pain, Vision change ENT: Denies: Head Aches, Ear Pain, Dysphagia Skin: Denies: Rash, Lesions, Breakdown Pulmonary: Denies: Dyspnea, Cough Cardiovascular: Denies: Chest Pain, Palpitations, Orthopnea, Paroxysmal Noc. Dyspnea, Lt Headedness Gastrointestinal: Denies: Nausea, Vomiting, Abdominal Pain, Diarrhea, Constipation Genitourinary: Denies: Dysuria, Frequency, Incontinence, Retention Hematologic: Denies: Bruising, Bleeding Excessively Musculoskeletal: Denies: Foot Pain Neurological: Denies: Weakness, Numbness, Change in speech, Confusion Psych: Reports: Mood Normal; Denies: Depression, Memory Issues Objective Physical Examination General Exam: Positive: Alert, Cooperative, No Acute Distress Eye Exam: Positive: Ptosis (left eye), Other Eye Symptoms (blind both eyes , can see some light perception on the right eye); Negative: Sclera icteric ENT Exam: Positive: Atraumatic, Mucous membr. moist/pink, Pharynx Normal Neck Exam: Positive: Supple; Negative: JVD, thyromegaly Chest Exam: Positive: Clear to auscultation, Normal air movement Heart Exam: Positive: Rate Normal, Regular Rhythm, Normal S1, Normal S2; Negative: Murmurs, Rubs Abdomen Exam: Positive: Normal bowel sounds, Soft; Negative: Tenderness, Hepatospenomegaly Extremity Exam: Positive: Swelling (left foot), Other (dorsum of left foot, amputatedrightsecond, third toe and possibly first metatarsal bone, on left amputated first toe, second and third toes); Negative: Clubbing, Cyanosis, Edema, Tenderness Skin Exam: Positive: Lesion (5x5cm lesion on the latral aspect of left foot extending to the bone.), Other skin issue (dry thick skin of both the heels with caluses there.) Assessment /Plan Assessment 63-year-old female presenting with left foot osteomyelitis. Likely due to MSSA. Seen by infectious disease today. Vancomycin DC'd. Continue Zosyn until after surgery. Plan for Keflex on discharge. To OR for wound closure tomorrow Diabetes. Continue fingersticks before meals and at bedtime Continue long-acting insulin. Continue sliding scale coverage. Diabetic diet. Remote PE. Off Coumadin for now going to OR. No need for heparin bridge. Resume Coumadin after surgery. Glaucoma. Blindness. Continue eyedrops Plan/VTE VTE Prophylaxis Ordered?: Yes VS, I&O, 24H, Fishbone Vital Signs/I&O Vital Signs Date Time Temp Pulse Resp B/P (MAP) Pulse Ox O2 Delivery O2 Flow Rate FiO2 02/07/19 14:00 97.6 71 19 155/62 (93) 99 02/04/19 02:52 Room Air I&O- Last 24 Hours up to 6 AM 02/07/19 06:00 Intake Total 1720 ml Output Total 550 ml Balance 1170 ml Laboratory Data 24H LABS Laboratory Tests 2 02/07/19 05:30: Immature Granulocyte % (Auto) 0.2, White Blood Count 5.9, Red Blood Count 2.93L, Hemoglobin 8.3L, Hematocrit 26.5L, Mean Corpuscular Volume 90.4, Mean Corpuscular Hemoglobin 28.3, Mean Corpuscular Hemoglobin Concent 31.3L, Red Cell Distribution Width 12.6, Platelet Count 316, Neutrophils (%) (Auto) 64.6, Lymphocytes (%) (Auto) 21.2L, Monocytes (%) (Auto) 8.2H, Eosinophils (%) (Auto) 5.3H, Basophils (%) (Auto) 0.5, Neutrophils # (Auto) 3.8, Lymphocytes # (Auto) 1.2L, Monocytes # (Auto) 0.5, Eosinophils # (Auto) 0.3, Basophils # (Auto) 0.0, Nucleated Red Blood Cells % (auto) 0.0, Anion Gap 5L, Glomerular Filtration Rate 56.0, Blood Urea Nitrogen 21H, Creatinine 1.05, Sodium Level 134L, Potassium Level 4.1, Chloride Level 104, Carbon Dioxide Level 25, Calcium Level 8.3L 02/07/19 05:31: Prothrombin Time 18.7H, Prothromb Time International Ratio 1.59 02/07/19 11:23: Bedside Glucose (Misc Panel) 204H 02/07/19 16:44: Bedside Glucose (Misc Panel) 124H 02/07/19 20:25: Bedside Glucose (Misc Panel) 168H CBC/BMP Laboratory Tests 02/07/19 05:30 Red Blood Count 2.93 L, Mean Corpuscular Volume 90.4, Mean Corpuscular Hemogl obin 28.3, Mean Corpuscular Hemoglobin Concent 31.3 L, Red Cell Distribution Width 12.6, Neutrophils (%) (Auto) 64.6, Lymphocytes (%) (Auto) 21.2 L, Monocytes (%) (Auto) 8.2 H, Eosinophils (%) (Auto) 5.3 H, Basophils (%) (Auto) 0.5, Neutrophils # (Auto) 3.8, Lymphocytes # (Auto) 1.2 L, Monocytes # (Auto) 0.5, Eosinophils # (Auto) 0.3, Basophils # (Auto) 0.0, Calcium Level 8.3 L Microbiology Microbiology 02/03/19 Blood Culture - Preliminary, Resulted No Growth after 72 hours. All specime... 02/03/19 Blood Culture - Final, Complete Staphylococcus Capitis 02/05/19 Gram Stain - Final, Complete 02/05/19 Wound Culture - Final, Complete Staphylococcus Aureus 02/05/19 Anaerobic Culture - Final, Complete 02/04/19 Gram Stain - Final, Complete 02/04/19 Wound Culture - Final, Complete Klebsiella Pneumoniae Staphylococcus Aureus Staphylococcus Sp Coag Neg Corynebacterium Species KENNEY CALIX MD Feb 07, 2019 21:18
[2019-02-07] MEDS: MONTELUKAST 10 MG TAB PO SCH (21:33)
[2019-02-07] MEDS: LATANOPROST 0.005% OPHTH SOLN 2.5 ML OU SCH (21:33)
[2019-02-07 22:00] VITALS: BP 148/58
--- NOTE | 2019-02-07 22:58 | ECGEPIP ---
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
[2019-02-08] VITALS (9 sets, daily range): BP systolic 142–198; BP diastolic 70–92
[2019-02-08] MEDS: PIPERACILLIN/TAZOBACTAM SOD 3.375 GM in D5W MINI-BAG PLUS 50 ML IV SCH ×3 (02:35→14:20)
[2019-02-08] MEDS: SODIUM CHLORIDE 0.9% INJ 10 ML SYR IV SCH (05:17)
[2019-02-08 06:21] LABS: BASO % 0.5 % (0.0-1.0); EOS # 0.4 10^3/uL (0.0-0.50); EOS % 6.1 % (0.0-3.0); HEMATOCRIT 27.4 % (36.0-47.0); HEMOGLOBIN 8.8 g/dl (12.0-15.5); LYMPH # 1.1 10^3/uL (1.5-4.5); LYMPH % 16.8 % (24.0-44.0); MEAN CORPUSCULAR HEMOGLOBIN 28.7 pg (27.0-33.0); MEAN CORPUSCULAR HGB CONC 32.1 g/dl (32.0-36.5); MEAN CORPUSCULAR VOLUME 89.3 fl (80.0-96.0); MONO # 0.5 10^3/uL (0.0-0.8); MONO % 7.4 % (0.0-5.0); NEUTROPHILS # 4.5 10^3/uL (1.8-7.7); NEUTROPHILS % 68.7 % (36.0-66.0); PLATELET COUNT, AUTOMATED 349 10^3/uL (150-450); RED BLOOD COUNT 3.07 10^6/uL (4.00-5.40); WHITE BLOOD COUNT 6.6 10^3/uL (4.0-10.0)
[2019-02-08 06:26] LABS: INR 1.37; PROTHROMBIN TIME 16.6 SECONDS (11.8-14.0)
[2019-02-08 06:37] LABS: C REACTIVE PROTEIN QUANTITATIV 6.1 MG/DL (0.00-0.30); CALCIUM LEVEL 8.3 MG/DL (8.8-10.2); CREATININE FOR GFR 1.03 MG/DL (0.55-1.30); GLOMERULAR FILTRATION RATE 57.3 (>45); POTASSIUM SERUM 4.4 MEQ/L (3.5-5.1)
[2019-02-08] MEDS ORDERED: NEOSPORIN GU IRRIG 20 ML VIAL As Ordered ONE (07:13)
[2019-02-08] MEDS ORDERED: BUPIVACAINE HCL 0.5% 30 ML VIAL As Ordered ONE (07:13)
[2019-02-08] MEDS ORDERED: LIDOCAINE 2% MDV 20 ML VIAL As Ordered ONE (07:13)
[2019-02-08] MEDS ORDERED: dexameTHASONE 4 MG/ML 1ML VIAL (J1100) As Ordered ONE (07:13)
[2019-02-08] MEDS ORDERED: BACITRACIN PWD 50,000 UNITS VIAL As Ordered ONE (07:13)
[2019-02-08] MEDS: HumaLOG INSULIN (NovoLOG) PER UNIT SC SCH ×2 (07:30→12:00)
[2019-02-08] MEDS ORDERED: fentaNYL 100 MCG/2 ML INJECTION (J3010) As Ordered ONE (07:46)
[2019-02-08] MEDS ORDERED: MIDAZOLAM INJ 2 MG/2 ML VIAL (J2250) As Ordered ONE (07:46)
[2019-02-08] MEDS ORDERED: PROPOFOL 200 MG/20 ML VIAL As Ordered ONE ×2 (07:52→07:53)
[2019-02-08] MEDS ORDERED: LIDOCAINE 2% INJ 100 MG/5 ML SDV (FOR ANES.) As Ordered ONE (07:53)
[2019-02-08] MEDS ORDERED: TOBRAMYCIN SULF 1.2 GM VIAL As Ordered ONE ×2 (09:21→09:22)
[2019-02-08] MEDS ORDERED: TOBRAMYCIN INJ 80 MG/2 ML VIAL (J3260) As Ordered ONE (09:22)
[2019-02-08] MEDS ORDERED: GENTAMICIN SULF INJ 80MG/2ML VIAL (J1580) As Ordered ONE (09:22)
[2019-02-08] MEDS ORDERED: ONDANSETRON 4MG/2ML VIAL (J2405) IV PRN (11:15)
[2019-02-08] MEDS ORDERED: fentaNYL 100 MCG/2 ML INJECTION (J3010) IV PRN (11:15)
[2019-02-08] MEDS ORDERED: LR 1,000 ML IV SCH (11:15)
[2019-02-08] MEDS ORDERED: PERCOCET 5MG/325MG TAB PO PRN (11:15)
[2019-02-08] MEDS: LACTOBACILLUS ACIDOPHILUS CAP (BACID) PO SCH (11:34)
[2019-02-08] MEDS: GABAPENTIN 400 MG CAP PO SCH ×2 (11:35→16:11)
[2019-02-08] MEDS: DULoxetine 30 MG CAP (CYMBALTA) PO SCH (11:35)
[2019-02-08] MEDS: hydroCHLOROthiazide 12.5 MG CAPSULE PO SCH (11:35)
[2019-02-08] MEDS: LISINOPRIL 10 MG TAB PO SCH (11:36)
[2019-02-08] MEDS: DOCUSATE SODIUM 100 MG CAP PO SCH (11:36)
[2019-02-08] MEDS: PANTOPRAZOLE 40MG TAB (PROTONIX) PO SCH (11:36)
--- NOTE | 2019-02-08 13:48 | RO ---
DATE OF PROCEDURE: 02/08/2019 PREOPERATIVE DIAGNOSIS: Stage IV wound status post fifth ray amputation left foot. POSTPROCEDURE DIAGNOSIS: Stage IV wound status post fifth ray amputation left foot. PROCEDURES PERFORMED: Excisional debridement, including muscle, left foot with insertion of antibiotic beads and delayed primary closure left foot. SURGEON: Serg Raya DPM DIRECTOR OF CUSTOMER SERVICE: None. ANESTHESIA: Local monitored anesthesia care (MAC). IRRIGATIONS: Dilute gentamicin solution. IMPLANTS UTILIZED: Tobramycin impregnated beads. DRAINS UTILIZED: None. DESCRIPTION OF OPERATION: On 02/08/2019, this 63-year-old female was taken from her hospital room to the operating room, placed on the operating room table in supine position. Following the induction of IV sedation, local and regional anesthesia, the left lower extremity was prepped and draped in the usual aseptic manner. Prior to prepping the wound, retention sutures were removed and a Betadine prep was performed in the usual fashion. The wound was inspected. All necrotic tissue was debrided with a sharp jenkins dermal curette. Incision was then carried down to muscle and the wound was beveled to create adequate closure without tension. The wound was then copiously lavaged with 3 liters of dilute tobramycin solution with low pressure pulse lavage system. The bone was intact. No signs of osteomyelitis. Ten small 2 mm vancomycin impregnated beads were placed throughout the wound and the wound was closed over with #2-0 nylon suture in a simple interrupted type fashion. A dry sterile dressing was applied. The patient apparently having tolerated the surgical procedure well was taken from the OR to her hospital room. Podiatrically speaking, we discussed with the patient on discharge to start Keflex 500 mg one by mouth every 8 hours times 10 days. The patient will follow-up with Dr. Ledbetter. The patient is a patient of Dr. Ledbetter's and sees him usually on Monday'. Her questions were answered.
[2019-02-08] MEDS ORDERED: KEFL500C17 PO (15:49)
--- NOTE | 2019-02-09 14:03 | DS.PDOC ---
Discharge Summary General Date of Admission Feb 04, 2019 at 02:30 Date of Discharge 02.08.19 Discharge Summary PROCEDURES PERFORMED DURING STAY: [left foot fifth ray amputation, delayed primary closure]. ADMITTING DIAGNOSES: 1. [Osteomyelitis]. DISCHARGE DIAGNOSES: 1. [Osteomyelitis]. COMPLICATIONS/CHIEF COMPLAINT: Osteomyelitis Of Left Foot. HISTORY OF PRESENT ILLNESS: [63 year old female with diabetes, neuropathy, retinopathy, chronic diabetic foot ulcer on the left lateral foot following with Dr Ledbetter presented to the ED with redness and swelling of her left foot which she noticed on the evening of 02/03/19. She said the swelling started suddenly along with the redness of the top of her left foot, there was no pain , no fever or chills. She has a chronic wound about 5 x 5 cm on the lateral aspect of left foot which is deep reaching the bones with area significant amount of drainage from it. 5 days ago it was debrided by Dr Ledbetter. Xray of foot showed Erosion involving the lateral aspect of the head of the left fifth metatarsal and a soft tissue ulcer lateral to the region of the left fifth metatarsophalangeal joint. She was admitted for osteomyelitis of foot.]. HOSPITAL COURSE: [She was started on broad spectrum antibiotics. Podiatry Dr Raya was consulted. she underwent a fifth ray amputation with delayed primary closure. ID was also consulted. blood culture grew staph capitis, wound cx staph aureus and gram negatives. After several days of iv antibiotics and closure of the surgical wound she was switched to po keflex and dced home]. DISCHARGE MEDICATIONS: Please see below. ALLERGIES: Please see below. PHYSICAL EXAMINATION ON DISCHARGE: VITAL SIGNS: Please see below. General Exam: Positive: Alert, Cooperative, No Acute Distress Eye Exam: Positive: Ptosis (left eye), Other Eye Symptoms (blind both eyes , can see some light perception on the right eye); Negative: Sclera icteric ENT Exam: Positive: Atraumatic, Mucous membr. moist/pink, Pharynx Normal Neck Exam: Positive: Supple; Negative: JVD, thyromegaly Chest Exam: Positive: Clear to auscultation, Normal air movement Heart Exam: Positive: Rate Normal, Regular Rhythm, Normal S1, Normal S2; Negative: Murmurs, Rubs Abdomen Exam: Positive: Normal bowel sounds, Soft; Negative: Tenderness, Hepatospenomegaly Extremity Exam: Positive: Swelling (left foot), Other (dorsum of left foot, amputatedrightsecond, third toe and possibly first metatarsal bone, on left amputated first toe, second and third toes); Negative: Clubbing, Cyanosis, Edema, Tenderness Skin Exam: Positive: Lesion (5x5cm lesion on the latral aspect of left foot ext ending to the bone.), Other skin issue (dry thick skin of both the heels with caluses there.) LABORATORY DATA: Please see below. ACTIVITY: [As tolerated]. DIET: [diabetic] DISCHARGE PLAN: [follow up with Dr Ledbetter] DISPOSITION: Home, Self-Care. DISCHARGE CONDITION: [Stable]. Vital Signs/I&Os Vital Signs Date Time Temp Pulse Resp B/P (MAP) Pulse Ox O2 Delivery O2 Flow Rate FiO2 02/08/19 16:15 97.7 73 20 167/82 (110) 97 02/08/19 10:23 10 02/04/19 02:52 Room Air I&O- Last 24 Hours up to 6 AM 02/09/19 06:00 Intake Total 614 ml Output Total 1280 ml Balance -666 ml Microbiology Microbiology 02/03/19 Blood Culture - Final, Complete NO GROWTH AFTER 5 DAYS 02/03/19 Blood Culture - Final, Complete Staphylococcus Capitis 02/05/19 Gram Stain - Final, Complete 02/05/19 Wound Culture - Final, Complete Staphylococcus Aureus 02/05/19 Anaerobic Culture - Final, Complete 02/04/19 Gram Stain - Final, Complete 02/04/19 Wound Culture - Final, Complete Klebsiella Pneumoniae Staphylococcus Aureus Staphylococcus Sp Coag Neg Corynebacterium Species Discharge Medications Scheduled Cephalexin (Keflex) 500 Mg Capsule, 500 MG PO TID Dorzolamide HCl/Timolol Maleat (Dorzolamide-Timolol Eye Drops) 10 Ml Drops, 1 DROP OU BID, (Reported) Duloxetine Hcl (Duloxetine HCl) 30 Mg Capsule.dr, 30 MG PO DAILY, (Reported) Gabapentin (Gabapentin) 400 Mg Capsule, 400 MG PO TID, (Reported) Insulin Aspart (Novolog Flexpen) 100 Unit/1 Ml Insuln.pen, 8 UNITS SC BID, (Reported) BEFORE BREAKFAST AND LUNCH Insulin Aspart (Novolog Flexpen) 100 Unit/1 Ml Insuln.pen, 10 UNITS SC QPM, (Rep orted) BEFORE DINNER Insulin Detemir (Levemir) 1 Units/0.01 Ml Susp, 50 UNITS SC QPM, (Reported) AFTER DINNER Latanoprost (Xalatan) 0.005% 2.5ML Drops, 1 DROP OU QHS, (Reported) Lisinopril/Hydrochlorothiazide (Lisinopril-Hctz 10-12.5 mg Tab) 1 Each Tablet, 1 TAB PO DAILY, (Reported) Montelukast Sodium (Singulair) 10 Mg Tablet, 10 MG PO QHS, (Reported) Pantoprazole Sodium (Protonix) 40 Mg Tab, 40 MG PO DAILY, (Reported) Warfarin Sodium (Warfarin Sodium) 4 Mg Tab, 4 MG PO 4XWK, (Reported) , , MON, SUN Warfarin Sodium (Warfarin Sodium) 4 Mg Tablet, 6 MG PO 3XW, (Reported) MON, WED, FRI Scheduled PRN Fexofenadine HCl (Fexofenadine HCl) 180 Mg Tablet, 180 MG PO DAILY PRN for ALLERGY SYMPTOMS, (Reported) Allergies Coded Allergies: heparin (Unverified Allergy, Severe, HEPARIN INDUCED THROMBOCYTOPENIA, 02/04/19) codeine (Unverified Adverse Reaction, Unknown, COMA FOR 5 DAYS, 02/04/19) KENNEY CALIX MD Feb 09, 2019 14:03
== END 2019-02-08 16:30 | disposition home health service (06) | DRG 617 ==
LOC: M ED 22:13 → M ED INP 02-04 02:30 → M MSPAV 02-04 03:18
PROVIDERS: ADMIT Internal Medicine Nephrology; ATTEND Hospitalist
PROC: 0Y6Y0Z1 Detachment at Left 5th Toe, High, Open Approach (ICD-10-PCS; principal; 2019-02-05 16:30)
PROC: 02HV33Z Insertion of Infusion Device into Superior Vena Cava, Percutaneous Approach (ICD-10-PCS; 2019-02-06)
DX: E11.69 Type 2 diabetes mellitus with other specified complication (principal); L03.116 Cellulitis of left lower limb; E11.621 Type 2 diabetes mellitus with foot ulcer; E11.40 Type 2 diabetes mellitus with diabetic neuropathy, unspecified; E11.319 Type 2 diabetes mellitus with unspecified diabetic retinopathy without macular edema; L97.529 Non-pressure chronic ulcer of other part of left foot with unspecified severity; Z79.899 Other long term (current) drug therapy; Z79.4 Long term (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 of insulin; Z88.5 Allergy status to narcotic agent; Z88.8 Allergy status to other drugs, medicaments and biological substances; B96.1 Klebsiella pneumoniae [K. pneumoniae] as the cause of diseases classified elsewhere; B95.61 Methicillin susceptible Staphylococcus aureus infection as the cause of diseases classified elsewhere; I10 Essential (primary) hypertension; H40.9 Unspecified glaucoma; H54.8 Legal blindness, as defined in USA

== ENCOUNTER → 2019-03-19 | Outpatient (CLI) | payer MEDICARE, MEDICAID ==
[~2019-03-19] MED LIST changes: +DULO30CA9 PO; +FEXO180T70 PO; +GABA-845 PO; +KEFL500C17 PO; +LISI10TA15 PO; +LISI20TA18 PO; +SING10TA32 PO; +XALA0.007 OU
== END ==
LOC: M PT 11:07
PROVIDERS: ATTEND Internal Medicine
DX: Z46.89 Encounter for fitting and adjustment of other specified devices (principal)

== ENCOUNTER → 2019-07-29 | Outpatient (REF) | payer MEDICARE, MEDICAID ==
[~2019-07-29] MED LIST changes: -LISI20TA18 PO; +LISI20TA19 PO; +SENN-53 PO; -SENN1TAB40 PO
[2019-07-29 19:38] LABS: PERCENT SATURATION 8.3 % (13.2-45.0)
== END ==
LOC: M LAB REF 18:49
PROVIDERS: ATTEND Internal Medicine
DX: D50.9 Iron deficiency anemia, unspecified (principal)

== ENCOUNTER → 2019-11-20 | Outpatient (REF) | payer MEDICARE, MEDICAID ==
[2019-11-20 13:48] LABS: PERCENT SATURATION 21.2 % (13.2-45.0)
== END ==
LOC: M LAB REF 12:10
PROVIDERS: ATTEND Internal Medicine
DX: D50.9 Iron deficiency anemia, unspecified (principal)
CPT/HCPCS: 11042; 82728; 83550; G0463

== ENCOUNTER 2020-01-15 11:08 | Emergency (ER) | payer MEDICARE, MEDICAID ==
[~2020-01-15] VITALS: Ht 162.6 cm; Wt 107.7 kg
[2020-01-15 11:08] VITALS: BP 136/66
[~2020-01-15 11:08] MED LIST changes: -COUM7.5T PO; +COUM7.5T6 PO
[2020-01-15] MEDS ORDERED: LISI10TA4 (11:20)
[2020-01-15 12:57] LABS: BASO % 0.3 % (0.0-1.0); EOS # 0.1 10^3/uL (0.0-0.5); EOS % 1.1 % (0.0-3.0); HEMATOCRIT 35.2 % (36.0-47.0); HEMOGLOBIN 11.1 g/dl (12.0-15.5); LYMPH # 0.6 10^3/uL (1.5-5.0); LYMPH % 6.2 % (24.0-44.0); MEAN CORPUSCULAR HEMOGLOBIN 30.2 pg (27.0-33.0); MEAN CORPUSCULAR HGB CONC 31.5 g/dl (32.0-36.5); MEAN CORPUSCULAR VOLUME 95.9 fl (80.0-96.0); MONO # 0.6 10^3/uL (0.0-0.8); MONO % 6.2 % (0.0-5.0); NEUTROPHILS # 8.7 10^3/uL (1.5-8.5); NEUTROPHILS % 85.8 % (36.0-66.0); PLATELET COUNT, AUTOMATED 336 10^3/uL (150-450); RED BLOOD COUNT 3.67 10^6/uL (4.00-5.40); WHITE BLOOD COUNT 10.1 10^3/uL (4.0-10.0)
--- NOTE | 2020-01-15 13:49 | REP ---
CHEST, SINGLE VIEW: Single view of the chest is performed. There is moderate cardiomegaly. There is no acute infiltrate. Mediastinal silhouette is unremarkable. IMPRESSION: Moderate cardiomegaly. No acute pulmonary disease. Electronically Signed by George Spaulding MD 01/16/2020 07:07 P
== END 2020-01-15 13:55 | disposition home or self-care (01) ==
LOC: M ED 11:08
DX: R50.9 Fever, unspecified (principal); I51.7 Cardiomegaly; E11.9 Type 2 diabetes mellitus without complications; Z11.59 Encounter for screening for other viral diseases

== ENCOUNTER → 2020-01-22 | Outpatient (REF) | payer MEDICARE, MEDICAID ==
[~2020-01-22] MED LIST changes: +LISI10TA4
== END ==
LOC: M LAB REF 15:49
PROVIDERS: ATTEND Surgery
DX: E11.621 Type 2 diabetes mellitus with foot ulcer (principal)

== ENCOUNTER 2020-02-23 12:31 | Emergency (ER) | payer MEDICARE, MEDICAID ==
[~2020-02-23] VITALS: Ht 162.6 cm; Wt 109.5 kg
[2020-02-23] MEDS ORDERED: METOCLOPRAMIDE INJ 10MG/2ML VIAL (J2765 PER 1) IV ONE (12:45)
[2020-02-23] MEDS ORDERED: NS 1,000 ML IV SCH (12:45)
[2020-02-23 13:31] LABS: BASO % 0.5 % (0.0-1.0); EOS # 0.4 10^3/uL (0.0-0.5); EOS % 6.8 % (0.0-3.0); HEMATOCRIT 36.5 % (36.0-47.0); HEMOGLOBIN 10.9 g/dl (12.0-15.5); LYMPH # 0.8 10^3/uL (1.5-5.0); LYMPH % 14.2 % (24.0-44.0); MEAN CORPUSCULAR HEMOGLOBIN 28.8 pg (27.0-33.0); MEAN CORPUSCULAR HGB CONC 29.9 g/dl (32.0-36.5); MEAN CORPUSCULAR VOLUME 96.6 fl (80.0-96.0); MONO # 0.4 10^3/uL (0.0-0.8); MONO % 7.1 % (0.0-5.0); NEUTROPHILS # 4.2 10^3/uL (1.5-8.5); NEUTROPHILS % 70.6 % (36.0-66.0); PLATELET COUNT, AUTOMATED 318 10^3/uL (150-450); RED BLOOD COUNT 3.78 10^6/uL (4.00-5.40); WHITE BLOOD COUNT 5.9 10^3/uL (4.0-10.0)
[2020-02-23 13:44] LABS: INR 2.39; PROTHROMBIN TIME 25.9 SECONDS (11.8-14.0)
[2020-02-23 14:05] LABS: BLOOD UREA NITROGEN 22 MG/DL (7-18); CALCIUM LEVEL 8.4 MG/DL (8.8-10.2); CARBON DIOXIDE LEVEL 22 MEQ/L (21-32); CHLORIDE LEVEL 107 MEQ/L (98-107); CK-MB VALUE MASS 3.1 NG/ML (<3.6); CPK CREATINE PHOSPHOKINASE 92 U/L (26-192); CREATININE FOR GFR 1.28 MG/DL (0.55-1.30); ETHYL ALCOHOL (ETHANOL) < 0.003 % (0.000-0.010); GLOMERULAR FILTRATION RATE 44.4 (>45); GLUCOSE, FASTING 142 MG/DL (70-100); MB/CK RELATIVE INDEX 3.37 (< OR =4); POTASSIUM SERUM 5.1 MEQ/L (3.5-5.1); SODIUM LEVEL 135 MEQ/L (136-145); TROPONIN I 0.03 NG/ML (< 0.10)
[2020-02-23 16:30] VITALS: BP 164/70
--- NOTE | 2020-02-23 19:14 | ECGEPIP ---
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
--- NOTE | 2020-02-24 00:20 | REP ---
AP PORTABLE CHEST, 02/23/2020. CLINICAL HISTORY: Syncope/near syncope. COMPARISON: 01/15/2020, 08/05/2017 AP; 07/28/2017 CT. FINDINGS: There is cardiomegaly with left atrial and ventricular enlargement. There is some vascular redistribution. Prominence of interstitial markings, right greater than left. Could not exclude some degree of interstitial edema. These findings are more apparent than on the 01/15/2020 examination. The aorta is mildly tortuous at the arch but unchanged. Airway intact. Small posterior pleural effusions are difficult to exclude. Bones are demineralized. IMPRESSION: 1. Cardiomegaly with left atrial and ventricular enlargement, some vascular redistribution, and suspected interstitial edema based on heavier interstitial markings than 01/15/2020 prior. No dense consolidation or gross effusion, but small effusion difficult to exclude with portable lordotic technique. Electronically Signed by Alfredo Kelly MD 02/24/2020 08:35 A
--- NOTE | 2020-02-24 01:15 | REP ---
CT BRAIN WITHOUT CONTRAST: 02/23/2020. COMPARISON: 07/16/2014. CLINICAL HISTORY: Syncope. FINDINGS: Standard noncontrast technique utilized with coronal reconstruction. As interval change, there is progression of the process in the right temporal lobe with severe encephalomalacia. There is progressive and diffuse atrophy with ventriculomegaly and ex vacuo phenomenon of the right lateral ventricle. There is no midline shift. Third and fourth ventricles were also proportionate. There is cerebellar atrophy, as well. There is no intra- or extra-axial hemorrhage, mass, mass effect, or edema. Basal ganglia appear grossly symmetric and intact. Skull base shows mastoids, visualized sinuses, and calvarium were intact. There are calcifications in the carotid siphons. IMPRESSION: 1. Severe encephalomalacia involving the right temporal lobe and empty middle cranial fossa on the right as a progression of process noted on 07/16/2014. With the progression of atrophy and ventriculomegaly, the right lateral ventricle shows ex vacuo phenomenon. Cerebellar atrophy also noted. Basal cisterns intact. No bleed, mass, or acute infarct. 2. Carotid siphon calcifications noted. The skull base, calvarium, sinuses, and mastoids without acute finding. Electronically Signed by Alfredo Kelly MD 02/24/2020 08:41 A
== END 2020-02-23 16:48 | disposition home or self-care (01) ==
LOC: EDBD 12:31 → M ED 12:31
DX: R55 Syncope and collapse (principal); G31.9 Degenerative disease of nervous system, unspecified; G93.89 Other specified disorders of brain; E11.9 Type 2 diabetes mellitus without complications; I11.9 Hypertensive heart disease without heart failure; Z79.4 Long term (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 of insulin; Z79.01 Long term (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 of anticoagulants; Z79.899 Other long term (current) drug therapy; Z88.5 Allergy status to narcotic agent; Z88.8 Allergy status to other drugs, medicaments and biological substances
CPT/HCPCS: 70450; 71045; 80048; 82550; 82553; 84443; 84484; 85025; 85610; 93005; 93041; 94760; 96360; 96374; 99285; G0480; J2765

== ENCOUNTER 2020-04-05 20:12 | Emergency (ER) | payer MEDICARE, MEDICAID ==
[~2020-04-05] VITALS: Ht 162.6 cm; Wt 116.0 kg
[~2020-04-05 20:12] MED LIST changes: +AMLO1TAB24 PO; -AMLO5TAB6 PO; -LISI20TA19 PO; +LISI20TA35 PO; +PANT40TA29 PO; -PANT40TA3 PO
[2020-04-05 21:56] LABS: BASO % 0.3 % (0.0-1.0); EOS # 0.2 10^3/uL (0.0-0.5); EOS % 1.3 % (0.0-3.0); HEMATOCRIT 34.5 % (36.0-47.0); HEMOGLOBIN 10.5 g/dl (12.0-15.5); LYMPH # 0.8 10^3/uL (1.5-5.0); LYMPH % 7.6 % (24.0-44.0); MEAN CORPUSCULAR HGB CONC 30.4 g/dl (32.0-36.5); MEAN CORPUSCULAR VOLUME 95.3 fl (80.0-96.0); MONO # 0.6 10^3/uL (0.0-0.8); MONO % 5.8 % (0.0-5.0); NEUTROPHILS # 9.4 10^3/uL (1.5-8.5); NEUTROPHILS % 84.5 % (36.0-66.0); PLATELET COUNT, AUTOMATED 326 10^3/uL (150-450); RED BLOOD COUNT 3.62 10^6/uL (4.00-5.40); WHITE BLOOD COUNT 11.1 10^3/uL (4.0-10.0)
--- NOTE | 2020-04-05 22:09 | REPVR ---
PROCEDURE INFORMATION: Exam: CT Head Without Contrast Exam date and time: 04/05/2020 9:44 PM Age: 64 years old Clinical indication: Altered mental status/memory loss; Confusion or disorientation; Additional info: AMS TECHNIQUE: Imaging protocol: Computed tomography of the head without contrast. Axial and coronal reformatted images were created and reviewed. Radiation optimization: All CT scans at this facility use at least one of these dose optimization techniques: automated exposure control; mA and/or kV adjustment per patient size (includes targeted exams where dose is matched to clinical indication); or iterative reconstruction. COMPARISON: CT Head without contrast 02/23/2020 1:53 PM FINDINGS: Brain: Right temporal encephalomalacia, similar to prior. Patchy areas of hypoattenuation in the periventricular and subcortical white matter, consistent with chronic small vessel ischemic disease. No CT evidence of acute intracranial hemorrhage or acute territorial infarction. No significant mass effect or midline shift. Basal cisterns patent. Ventricles: Prominence of the cortical sulci, cisterns and ventricular system, consistent with cerebral and cerebellar volume loss. Bones/joints: No acute osseous abnormality. Sinuses: Grossly unremarkable. Mastoid air cells: Grossly unremarkable. Vasculature: Calcific atherosclerotic disease in the cavernous internal carotid arteries. Soft tissues: Grossly unremarkable. IMPRESSION: 1. No CT evidence of acute intracranial pathology. 2. Additional findings, as above. Electronically signed by: Ellis Little On 04/05/2020 22:10:02 PM
[2020-04-05 22:12] LABS: INR 1.32; PROTHROMBIN TIME 16.7 SECONDS (11.8-14.0)
[2020-04-05 22:13] LABS: PARTIAL THROMBOPLASTIN TIME 32.2 SECONDS (25.0-38.4)
[2020-04-05 22:33] LABS: ALBUMIN 3.1 GM/DL (3.2-5.2); ALT/SGPT 31 U/L (12-78); BILIRUBIN,DIRECT 0.3 MG/DL (0.0-0.2); BILIRUBIN,TOTAL 0.6 MG/DL (0.2-1.0); BLOOD UREA NITROGEN 29 MG/DL (7-18); CALCIUM LEVEL 8.2 MG/DL (8.8-10.2); CARBON DIOXIDE LEVEL 24 MEQ/L (21-32); CHLORIDE LEVEL 105 MEQ/L (98-107); CREATININE FOR GFR 1.23 MG/DL (0.55-1.30); ETHYL ALCOHOL (ETHANOL) < 0.003 % (0.000-0.010); FREE THYROXINE INDEX 2.9 % (1.3-4.8); GLOMERULAR FILTRATION RATE 46.5 (>45); GLUCOSE, FASTING 66 MG/DL (70-100); POTASSIUM SERUM 5.1 MEQ/L (3.5-5.1); SODIUM LEVEL 138 MEQ/L (136-145); T UPTAKE 35 % (30-39); THYROXINE (T4) 8.3 UG/DL (4.5-12.0)
[2020-04-05] MEDS: D10W 500 ML IV SCH ×2 (22:58→23:24)
[2020-04-06] MEDS ORDERED: D10W 500 ML IV SCH (00:45)
[2020-04-06 02:30] VITALS: BP 168/86
--- NOTE | 2020-04-28 11:56 | ECGEPIP ---
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
== END 2020-04-06 03:04 | disposition home or self-care (01) ==
LOC: M ED 20:12
DX: E11.649 Type 2 diabetes mellitus with hypoglycemia without coma (principal); I10 Essential (primary) hypertension; Z86.718 Personal history of other venous thrombosis and embolism; Z88.6 Allergy status to analgesic agent; Z88.8 Allergy status to other drugs, medicaments and biological substances; Z79.4 Long term (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 of insulin; Z79.899 Other long term (current) drug therapy
CPT/HCPCS: 70450; 80048; 80076; 84436; 84443; 84479; 85025; 85610; 85730; 93005; 96365; 99284; G0480

== ENCOUNTER → 2020-04-08 | Outpatient (REF) | payer MEDICARE, MEDICAID | LOC: M LAB REF 18:03 | PROVIDERS: ATTEND Surgery | DX: E11.621 Type 2 diabetes mellitus with foot ulcer (principal); L97.524 Non-pressure chronic ulcer of other part of left foot with necrosis of bone ==

== ENCOUNTER → 2020-06-19 | Outpatient (REF) | payer MEDICARE, MEDICAID ==
[2020-06-19 18:22] LABS: HEPATITIS C VIRUS ABY INDEX 0.1 INDEX (<0.8)
== END ==
LOC: M LAB REF 16:18
PROVIDERS: ATTEND Internal Medicine
DX: Z01.89 Encounter for other specified special examinations (principal); D50.9 Iron deficiency anemia, unspecified

== ENCOUNTER → 2020-07-20 | Outpatient (REF) | payer MEDICARE, MEDICAID | LOC: M LAB REF 15:53 | PROVIDERS: ATTEND Surgery | DX: E11.621 Type 2 diabetes mellitus with foot ulcer (principal) ==

== ENCOUNTER → 2020-08-25 | Outpatient (REF) | payer MEDICARE, MEDICAID ==
[~2020-08-25] MED LIST changes: +GABA-282 PO; -GABA-843 PO
[2020-08-25 13:15] LABS: INR 3.88
== END ==
LOC: M LAB REF 12:22
PROVIDERS: ATTEND Internal Medicine
DX: Z79.01 Long term (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 of anticoagulants (principal); Z51.81 Encounter for therapeutic drug level monitoring

== ENCOUNTER → 2020-09-02 | Outpatient (CLI) | payer MEDICARE, MEDICAID ==
[~2020-09-02] MED LIST changes: +BRIM0.2S13 OU; +CEPH500C PO; +FLUTISP; +FURO20TA2 PO; +LISI10TA22 PO; -LISI10TA4; +SIMV10TA21 PO
--- NOTE | 2020-09-06 19:55 | REP ---
INDICATION: ATHROSCL OF LT LEG WITH ULCERATION COMPARISON: None. TECHNIQUE: Real time spaulding scale and color Doppler evaluation of the bilateral lower extremity arterial vasculature using linear high frequency transducer. FINDINGS: Spaulding scale and color images demonstrate is markedly limited due to diffuse bilateral edema and associated technical factors decreasing sonographic through transmission and penetration. Markedly calcified atherosclerotic changes are noted bilaterally. The right lower extremity demonstrates biphasic wave patterns similar to prior examination with non visualization of the tibioperoneal trunk and proximal/distal posterior tibial artery along with moderate 3:1 stenosis identified in the anterior tibial artery and these findings are not significantly changed when compared to prior examination and allowing for variations in technique and limiting factors. The left lower extremity demonstrates triphasic and biphasic wave patterns involving the common femoral artery through mid superficial femoral artery followed by monophasic wave patterns from the distal superficial femoral artery through the proximal posterior tibial artery. The tibioperoneal trunk as well as the distal aspect of the posterior tibial artery and anterior tibial artery are not visualized and possibly occluded. Peak systolic velocities (cm/sec) Common femoral artery: Right 85.7; Left 100.5 Profunda femoris: Right 144.1; Left 86.8 SFA (proximal): Right 84.2; Left 104.1 SFA (mid): Right 60.4; Left 75.8 SFA (distal): Right 64.9; Left 68.0 Popliteal artery: Right 58.4; Left 72.2 NESTOR (prox.): Right 147.9; Left 62.9 Tibioperoneal trunk: Right nonvisualized; Left nonvisualized PROPULSION MACHINERY SERVICE ENGINEER (prox.): Right nonvisualized; Left 31.7 PROPULSION MACHINERY SERVICE ENGINEER (distal): Right nonvisualized; Left nonvisualized/occluded NESTOR (distal): Right 40.2; Left nonvisualized/occluded IMPRESSION: Significant bilateral atherosclerotic changes with stenosis in the right proximal anterior tibial artery and limited evaluation to the more distal bilateral lower arterial structures including suggestions for occlusion. <Electronically signed by Wallace Renae > 09/06/201951
== END ==
LOC: M RAD 12:58
PROVIDERS: ATTEND Physician Assistant
DX: I70.245 Atherosclerosis of native arteries of left leg with ulceration of other part of foot (principal); I70.201 Unspecified atherosclerosis of native arteries of extremities, right leg; L97.529 Non-pressure chronic ulcer of other part of left foot with unspecified severity

== ENCOUNTER → 2020-09-03 | Outpatient (REF) | payer MEDICARE, MEDICAID ==
[2020-09-03 17:01] LABS: INR 1.88
== END ==
LOC: M LAB REF 16:07
PROVIDERS: ATTEND Internal Medicine
DX: Z79.01 Long term (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 of anticoagulants (principal); Z51.81 Encounter for therapeutic drug level monitoring

== ENCOUNTER → 2020-09-09 | Outpatient (CLI) | payer MEDICARE, MEDICAID ==
[~2020-09-09] MED LIST changes: -BRIM0.2S13 OU; -CEPH500C PO; +ISOVUE-300 61% 50ML VIAL As Ordered ONE; +LIDOCAINE 1% MDV 20ML VIAL As Ordered ONE; -LISI10TA22 PO; +LISI10TA4; +MIDAZOLAM INJ 2MG/2ML VIAL (J2250 PER 1MG) As Ordered ONE; +fentaNYL 100 MCG/2 ML INJECTION (J3010) As Ordered ONE
[2020-09-09 07:56] LABS: CALCIUM LEVEL 8.6 MG/DL (8.8-10.2); CREATININE FOR GFR 1.47 MG/DL (0.55-1.30); GLOMERULAR FILTRATION RATE 37.9 (>45); POTASSIUM SERUM 4.8 MEQ/L (3.5-5.1)
[2020-09-09 07:59] LABS: INR 1.65; PROTHROMBIN TIME 19.9 SECONDS (12.5-14.3)
[2020-09-09 08:08] LABS: HEMATOCRIT 37.7 % (36.0-47.0); HEMOGLOBIN 11.3 g/dl (12.0-15.5); MEAN CORPUSCULAR HEMOGLOBIN 29.4 pg (27.0-33.0); MEAN CORPUSCULAR VOLUME 98.2 fl (80.0-96.0); PLATELET COUNT, AUTOMATED 328 10^3/uL (150-450); RED BLOOD COUNT 3.84 10^6/uL (4.00-5.40); WHITE BLOOD COUNT 6.3 10^3/uL (4.0-10.0)
--- NOTE | 2020-09-09 13:14 | ROOPDOC ---
[facility] Report Of Operation Report of Operation DATE OF PROCEDURE: 09/09/20 PREPROCEDURE DIAGNOSES: Atherosclerosis of the barrow arteries with wounds left distal foot POSTPROCEDURE DIAGNOSES: Same PROCEDURE: 1. Ultrasound-guided access right common femoral artery 2. Aortoiliofemoral arteriogram 3. Selection left superficial femoral artery and left lower extremity runoff 4. Angioplasty proximal left popliteal artery and distal superficial femoral artery with 4 x 200 Robins balloon 5. Attempt to cross chronic total occlusion left posterior tibial artery and peroneal artery, aborted 6. Selection left anterior tibial artery and runoff SURGEON: Stephanie White MD ANESTHESIA: Local anesthesia 6 mL lidocaine. Moderate intravenous conscious sedation with supervised by Dr. White. The patient was independently monitored by registered nurse assigned to the Department of radiology using automated blood pressure, EKG, and pulse oximetry. A detailed sedation records permanently started in the hospital information system. The following is a sedation record: Start time 08:04, stop time 08:55, Versed 1 mg IV, fentanyl 50 g IV, heparin 4000 units IV. CONTRAST: 31 mL Isovue-300 INDICATION FOR PROCEDURE: This is a very pleasant 64-year-old patient who has atherosclerosis barrow arteries and nonhealing wound to the distal left foot. She is scheduled to undergo a transmetatarsal amputation with Dr. Moser. We are hoping that we may be able to improve her arterial flow to help with postop healing. Risks benefits and alternatives to an arteriogram potential intervention were explained to the patient she is agreeable to proceed. Informed consent was obtained. INTERPRETATION: 1. The distal aorta, common iliac arteries, hypogastric arteries, and external iliac arteries bilaterally are widely patent. They have excellent flow into the common femoral arteries bilaterally. 2. The left common femoral artery has excellent flow into the profunda and the left superficial femoral artery. There is some ectasia in the distal superficial femoral artery and proximal popliteal artery with intermittent 30-40% stenoses. Distal to this, the popliteal arteries widely patent with single-vessel runoff through the anterior tibial artery which is the single-vessel supply to the foot. The posterior tibial artery and peroneal artery occluded at the origin and do not reconstitute. There are some collateral vessels on the medial calf proximally. 3. After angioplasty of the left distal superficial femoral artery proximal popliteal artery, there is widely patent flow with no flow-limiting stenoses remaining, no extravasation dissection or embolization. No stent was needed at this occasion. 4. After attempting to cross both the left peroneal artery and the left posterior tibial artery chronic total occlusion, there was no extravasation after aggressive attempts to cross. Attempts to cross were aborted and ultimately unsuccessful. 5. Selection of the left anterior tibial artery shows widely patent flow through the vessel to the ankle and the dorsal pedis artery in the foot with excellent collateralization to both pedal arteries. No collateralization to the distal peroneal artery or posterior tibial arteries noted. REPORT OF OPERATION: Patient was brought to the angiographic suite in stable condition. Her bilateral groins were prepped and draped in sterile fashion. Timeout was performed. Sedation was administered without complication. Local anesthesia was a marketing content specialist to skin and subcutaneous tissue over the right common femoral artery. A microneedle was used to access the artery under ultrasound guidance. A wire was passed through this access and a 4 Maldivian sheath was placed and flushed with saline. A Glidewire and flushing catheter were advanced into the distal aorta under fluoroscopic guidance. Aortoiliofemoral arteriogram performed, please interpretation above. We then went up and over the bifurcation with a Glidewire and catheter. We advanced the wire into the distal left popliteal artery. We attempted to place a 6 x 65 cm sheath, but her bifurcation was angled and narrow, so we placed a short 6 Maldivian sheath, placed a Glidecath up and over the bifurcation, exchange the wire for an Amplatz superstiff wire, and then exchange the sheath for this 6 x 65 cm destination sheath. This sheath was then flushed with saline. Over the wire, we angioplasty the proximal popliteal artery in the distal superficial femoral artery with a 4 x 200 Robins balloon. Three-minute inflations were performed. Following this, there is widely patent flow with no dissection embolization or extravasation noted. We then exchanged the wire for a 018 Glidewire advantage and is 018 [place] catheter. We attempted to cross the occlusion in the posterior tibial artery as well as the peroneal artery, both for about 20 minutes, but could not get past the initial blockage with dense calcium at the proximal aspect of both vessels. Despite our best efforts, these we could not revascularize these vessels today. We then selected the left anterior tibial artery with the wire and advanced the [place] catheter into the proximal aspect of the vessel. A runoff of the ankle and foot was performed and we had good flow through to the distal foot and the pedal arch. No significant collateralization was noted across the ankle calf or foot to the posterior tibial artery or peroneal artery. We then exchange the sheath for short 6 Maldivian sheath over the Glidewire. Mynx closure device was deployed at the right common femoral artery and pressure was held. Sterile dressings were applied and good hemostasis was noted. The patient was taken to recovery in stable condition. She tolerated the procedure and the sedation well. ESTIMATED BLOOD LOSS: Approximately 6 mL. COMPLICATIONS: None. PLAN: It is okay to resume home diet and medications. We will see the patient back in a week to check her groin access site. Unfortunately, without restoring flow through either the peroneal artery or the posterior tibial artery on the left, I am not certain she will have enough blood flow from the anterior tibial artery alone to heal a left transmetatarsal amputation. I think it would be worthwhile to try, as her pedal vessels are widely patent and there is excellent flow through the anterior tibial artery, but I have discussed with the patient that this may or may not be successful. Unfortunately, without a distal target, there is no distal bypass option for the posterior tibial artery. It does not reconstitute. Therefore, her single-vessel runoff, although good, may not be enough for left foot to heal. I discussed with her that I'll be very important for her to control the other aspects of wound healing including offloading, tight glucose control, high protein intake and she understands. We appreciate the opportunity to participate in the care of this patient. STEPHANIE WHITE MD Sep 09, 2020 13:14
[2020-09-09 13:15] VITALS: BP 160/70
== END ==
LOC: M IRPRO 06:35
PROVIDERS: ATTEND Surgery Vascular Surgery
DX: I70.245 Atherosclerosis of native arteries of left leg with ulceration of other part of foot (principal); I70.213 Atherosclerosis of native arteries of extremities with intermittent claudication, bilateral legs; L97.529 Non-pressure chronic ulcer of other part of left foot with unspecified severity; I70.92 Chronic total occlusion of artery of the extremities; I12.9 Hypertensive chronic kidney disease with stage 1 through stage 4 chronic kidney disease, or unspecified chronic kidney disease; E11.22 Type 2 diabetes mellitus with diabetic chronic kidney disease; E11.40 Type 2 diabetes mellitus with diabetic neuropathy, unspecified; E11.51 Type 2 diabetes mellitus with diabetic peripheral angiopathy without gangrene; E11.621 Type 2 diabetes mellitus with foot ulcer; E66.9 Obesity, unspecified; H40.9 Unspecified glaucoma; N18.30 Chronic kidney disease, stage 3 unspecified; Z68.41 Body mass index [BMI] 40.0-44.9, adult; Z79.01 Long term (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 of anticoagulants; Z79.899 Other long term (current) drug therapy; Z86.711 Personal history of pulmonary embolism; Z86.718 Personal history of other venous thrombosis and embolism; Z88.5 Allergy status to narcotic agent
CPT/HCPCS: 37224; 75630; 75774; 80048; 85027; 85610; 99152; 99153; C1725; C1729; C1760; C1769; C1887; C1894; J1644; J2250; J3010; Q9967

== ENCOUNTER → 2020-09-11 | Outpatient (CLI) | payer MEDICARE, MEDICAID ==
[~2020-09-11] MED LIST changes: +BRIM0.2S13 OU; +CEPH500C PO; -ISOVUE-300 61% 50ML VIAL As Ordered ONE; -LIDOCAINE 1% MDV 20ML VIAL As Ordered ONE; +LISI10TA22 PO; -LISI10TA4; -MIDAZOLAM INJ 2MG/2ML VIAL (J2250 PER 1MG) As Ordered ONE; -fentaNYL 100 MCG/2 ML INJECTION (J3010) As Ordered ONE
== END ==
LOC: M LABSMTC 12:46
PROVIDERS: ATTEND Anesthesiology
DX: Z01.812 Encounter for preprocedural laboratory examination (principal); Z20.822 Contact with and (suspected) exposure to COVID-19

== ENCOUNTER 2020-09-16 10:53 | Day surgery (SDC) | payer MEDICARE, MEDICAID ==
[~2020-09-16] VITALS: Ht 160 cm; Wt 109.0 kg
[~2020-09-16 10:53] MED LIST changes: -BRIM0.2S13 OU; +BUPIVACAINE HCL 0.5% 10ML VIAL As Ordered ONE; -CEPH500C PO; +LIDOCAINE 1% MDV 20ML VIAL As Ordered ONE; +LIDOCAINE 2% 100MG/5ML SDV (FOR ANES.) As Ordered ONE; -LISI10TA22 PO; +LISI10TA4 PO; +LR 1,000 ML IV ONE; +MIDAZOLAM INJ 2MG/2ML VIAL (J2250 PER 1MG) As Ordered ONE; +ONDANSETRON 4MG/2ML VIAL As Ordered ONE; +ceFAZolin SOD 2 GM in IV 1 EA IV ONE; +dexameTHASONE 4 MG/ML 1ML VIAL (J1100 PER 1MG) As Ordered ONE; +fentaNYL 100 MCG/2 ML INJECTION (J3010) As Ordered ONE; +propofoL 200 MG/20 ML VIAL As Ordered ONE
[2020-09-16 11:36] LABS: INR 1.05; PROTHROMBIN TIME 13.9 SECONDS (12.5-14.3)
[2020-09-16] MEDS ORDERED: KETOROLAC 60MG 2ML VIAL As Ordered ONE (11:57)
[2020-09-16] MEDS ORDERED: ePHEDrine SULFATE 25 MG/5 ML(5MG/ML) SYRINGE As Ordered ONE (13:33)
[2020-09-16] MEDS ORDERED: ACETAMINOPHEN 1000MG 100ML IV BTL (OFIRMEV) (J0131 PER 10MG) As Ordered ONE (13:43)
--- NOTE | 2020-09-16 14:25 | RO ---
OPERATIVE NOTE DATE OF OPERATION: 09/16/2020 PREOPERATIVE DIAGNOSIS: Left foot osteomyelitis. POSTOPERATIVE DIAGNOSIS: Left foot osteomyelitis. PROCEDURE: Left foot transmetatarsal amputation. SURGEON: Jed Moser DPM PROSTHETIC TECHNICIAN: None. ANESTHESIA: General LMA with preoperative injection of 20 mL 1:1 mixture of 1% lidocaine plain and 0.5% marcaine plain. ESTIMATED BLOOD LOSS: 25 mL. SPECIMENS: Left forefoot. MATERIALS: 3-0 nylon. INJECTABLES: None. COMPLICATIONS: None. CONDITION: Stable. INDICATIONS FOR PROCEDURE: Leatha Moreno is a 64-year-old diabetic female with a longstanding ulcerations to her left foot. She has exposed bone with osteomyelitis near her left first hallux. She has had recent angioplasty and has optimized her blood flow. It was discussed previously; however, with Dr. White her vascular surgeon, that there remains some poor blood flow to the distal foot. Decision was made to bring her to the operating room for transmetatarsal amputation. The patient's side and site were identified and marked in the preoperative holding area. Consent was reviewed and obtained. The risks, complications, and alternatives to the procedure were explained to the patient in detail and all questions were answered. DESCRIPTION OF PROCEDURE: The patient was brought to the operating room and placed on the operating room table in the supine position. General LMA anesthesia was delivered by the anesthesia team. A preop injection of 20 mL of 1:1 mixture of 1% lidocaine plain and 0.5% marcaine plain was injected into the left foot. The left foot was prepped and draped in normal sterile fashion. Tourniquet was applied to the left ankle and was not inflated during the procedure. A fishmouth-type incision was made around the forefoot of the remaining toes and carried through with a #10-blade. The overlying soft tissue attachments to the metatarsals were released using a sagittal saw. The remaining distal portions of metatarsals one through four were resected. The fifth metatarsal had previously been removed. The forefoot was released of the remaining soft tissue attachments and sent for pathology. Following this, Bovee was used to maintain hemostasis. There was fair bleeding throughout the case. The site was irrigated with normal saline. Nonvital soft tissue and tendon was released and the incision was repaired using 3-0 nylon. Sterile dressings were applied. The tourniquet was deflated. The patient was brought to the PACU with vital signs stable and neurovascular status intact. She will be admitted for antibiotics and monitoring. TERESA
[2020-09-16] MEDS ORDERED: LR 1,000 ML IV SCH (14:45)
[2020-09-16] MEDS ORDERED: oxyCODONE 5MG TAB PO PRN (14:45)
[2020-09-16] MEDS ORDERED: ONDANSETRON 4MG/2ML VIAL IV PRN (14:45)
[2020-09-16] MEDS ORDERED: PERCOCET 5MG/325MG TAB PO PRN (14:45)
[2020-09-16] MEDS ORDERED: fentaNYL 100 MCG/2 ML INJECTION (J3010) IV PRN (14:45)
[2020-09-16 15:15] VITALS: BP 142/69
[2020-09-16 15:45] VITALS: BP 140/70
[2020-09-16] MEDS ORDERED: MORPHINE 2 MG/ML 1ML VIAL (J2270) IV PRN (15:45)
[2020-09-16] MEDS ORDERED: BRIM0.2S13 OU (16:10)
[2020-09-16] MEDS ORDERED: ACETAMINOPHEN TAB 650MG DOSE (2X325MG) PO PRN (16:30)
[2020-09-16] MEDS ORDERED: MAALOX 30 ML SUSP *UDC PO PRN (16:30)
[2020-09-16] MEDS ORDERED: MOM 30ML SUSPENSION UDC PO PRN (16:30)
[2020-09-16 16:45] VITALS: BP 142/75
--- NOTE | 2020-09-16 16:51 | HPEPDOC ---
[facility] Medical History & Physical Date of Admission Sep 16, 2020 Date of Service: Sep 16, 2020 History and Physical CHIEF COMPLAINT: L foot osteomyelitis HISTORY OF PRESENT ILLNESS: 64-year-old female with a history of DVT, diabetes type 2, neuropathy, retinopathy, Asthma, chronic diabetic foot ulcers on the left lateral foot follows with Dr. Ledbetter and Dr. Moser. She underwent a left TMA on 09/16/[address] Moser for L foot osteomyelitis (L hallux). She previously had vascular intervention but continue to have poor flow to the distal foot. Patient will be admitted to hospitalist service for observation. Patient denies chest pain, shortness of breath, palpitations, fevers, chills, n /v/d or foot pain. She has not yet voided post operatively. PAST MEDICAL HISTORY: CATARACTS DVT LEFT LATERAL FOOT CHRONIC WOUND HTN DIABETES TYPE 2 ASTHMA RIGHT HIP FRACTURE RIGHT HEEL ULCER OSTEOMYELITIS NOW CLOSED VRE INFECTION HEEL ACUTE OSTEOMYELITIS OF THE LEFT HEEL WITH CULTURE POSITIVE FOR PSEUDOMONAS AERUGINOSA AND ENTEROBACTER GLAUCOMA BLINDNESS PAST SURGICAL HISTORY: MULTIPLE TOES AMPUTATIONS IN BOTH FEET DEBRIDEMENT OF WOUND TO RIGHT HEEL JANUARY 2016, HYPERBARIC THERAPY RIGHT HIP FRACTURE WITH HEMIARTHROPLASTY JANUARY 2016 HYSTERECTOMY GALL BLADDER REMOVED ANTONY CATARACT SURGERY IN RIGHT EYE FOR GLAUCOMA REVASC - RIGHT LEG 09/22/2016 LEFT GREAT TOE AMPUTATION 02/2017 REVASC - LEFT LEG 02/2017 RIGHT EYE SURGERY 07/2017 SOCIAL HISTORY: Patient denies smoking Patient denies etoh use Patient denies illicit drug use FAMILY HISTORY: FATHER: , DIAGNOSED WITH HEART DISEASE MOTHER: , DIABETES SIBLINGS: DIABETES 1 BROTHER(S) , 2 SISTER(S) . 2 SON(S) , 1 DAUGHTER(S) - HEALTHY. ALLERGIES: Please see below. REVIEW OF SYSTEMS: 10 point HOME MEDICATIONS: Please see below. PHYSICAL EXAMINATION: 10 point ROS completed, and pertinent positives are in HPI. LABORATORY DATA: See below. MICROBIOLOGY: Please see below. ASSESSMENT: 64-year-old female with a history of DVT, diabetes type 2, neuropathy, retinopathy, chronic diabetic foot ulcers on the left lateral foot follows with Dr. Ledbetter and Dr. Moser. She underwent a left TMA on 09/16/[address] Moser. Patient will be admitted to hospitalist service for observation. . PLAN: L foot osteomyelitis - s/p L foot TMA by Dr. Moser - PT/OT - pain control - monitor for urinary retention - incentive spirometry DM2 with neuropathy - ISS, FSBS AC and HS - hypoglycemic precautions - home levemir 40 units SC qpm - home novolog 10 units SC TID - gabapentin 400 mg TID Asthma - resume montelukast Hx of DVT - resume warfarin on 09/17/[address] Moser - 2 mg 3x/ week, 4 mg 4x/ week - check INR Iron deficiency anemia - continue ferrous sulfate Dispo: expect return home after 24 hours observation. Vital Signs Vital Signs Date Time Temp Pulse Resp B/P (MAP) Pulse Ox O2 Delivery O2 Flow Rate FiO2 09/16/20 14:56 98.2 63 20 155/73 (100) 99 Nasal Cannula 2 Laboratory Data Labs 24H Laboratory Tests 2 09/16/20 11:11: Prothrombin Time 13.9, Prothromb Time International Ratio 1.05 09/16/20 12:01: Bedside Glucose (Misc Panel) 142H 09/16/20 14:24: Bedside Glucose (Misc Panel) 135H Home Medications Scheduled Brimonidine Tartrate (Brimonidine Tartrate) 0.2% 5ML Drops, 1 DROP OU BID Dorzolamide HCl/Timolol Maleat (Dorzolamide-Timolol Eye Drops) 10 Ml Drops, 1 DROP OU BID Duloxetine Hcl (Duloxetine HCl) 30 Mg Capsule.dr, 30 MG PO DAILY Ferrous Gluconate (Ferrous Gluconate) 324 Mg Tablet, 324 MG PO Q2D Fluticasone Propionate (Fluticasone Propionate) 16 Gm [place].susp, 2 SPRAYS NA DAILY Furosemide (Furosemide) 20 Mg Tablet, 20 MG PO DAILY Gabapentin (Gabapentin) 400 Mg Capsule, 400 MG PO TID Insulin Aspart (Novolog Flexpen) 100 Unit/1 Ml Insuln.pen, 10 UNITS SC TID Insulin Detemir (Levemir) 1 Units/0.01 Ml Susp, 40 UNITS SC QPM AFTER DINNER Latanoprost (Xalatan) 0.005% 2.5ML Drops, 1 DROP OU QHS Lisinopril (Lisinopril) 10 Mg Tablet, 10 MG PO DAILY Montelukast Sodium (Singulair) 10 Mg Tablet, 10 MG PO QHS Pantoprazole Sodium (Protonix) 40 Mg Tab, 40 MG PO BID Simvastatin (Simvastatin) 10 Mg Tablet, 5 MG PO DAILY Warfarin Sodium (Warfarin Sodium) 4 Mg Tab, 2 MG PO 3XW TUES, TH, SAT Warfarin Sodium (Warfarin Sodium) 4 Mg Tablet, 4 MG PO 4XWK MON, WED, FRI, SUN Scheduled PRN Fexofenadine HCl (Fexofenadine HCl) 180 Mg Tablet, 180 MG PO DAILY PRN for ALLERGY SYMPTOMS Allergies Coded Allergies: codeine (Unverified Adverse Reaction, Unknown, COMA FOR 5 DAYS, 09/16/20) A-FIB/CHADSVASC A-FIB History Current/History of A-Fib/PAF?: No Current PO Anticoag Therapy: No ALONA PHIPPS MD Sep 16, 2020 16:51
[2020-09-16] MEDS ORDERED: PILL CUTTER 1 EACH XX PRN (17:00)
[2020-09-16 17:45] VITALS: BP 171/64
[2020-09-16] MEDS ORDERED: LEVEMIR (INSULIN DETEMIR) 1 UNITS/0.01ML SC SCH (18:00)
[2020-09-16 18:45] VITALS: BP 165/69
[2020-09-16] MEDS: HumaLOG INSULIN (NovoLOG) PER UNIT SC SCH (18:53)
[2020-09-16] MEDS ORDERED: SIMVASTATIN 10 MG TAB PO SCH (21:00)
[2020-09-16] MEDS ORDERED: LATANOPROST 0.005% OPHTH SOLN 2.5 ML OU SCH (21:00)
[2020-09-16] MEDS ORDERED: MONTELUKAST 10 MG TAB PO SCH (21:00)
[2020-09-16] MEDS: DOCUSATE SODIUM 100MG CAPSULE PO SCH (21:00)
[2020-09-16] MEDS: GABAPENTIN 400 MG CAP PO SCH (21:30)
[2020-09-16] MEDS: ceFAZolin SOD 2 GM in IV 1 EA IV SCH (21:31)
[2020-09-16] MEDS: PANTOPRAZOLE 40MG TAB (PROTONIX) PO SCH (21:31)
[2020-09-16] MEDS: COSOPT OCUMETER PLUS 10ML (DORZOLAMIDE/TIMOLOL) OU SCH (21:45)
[2020-09-16] MEDS: BRIMONIDINE 0.15% OPHTH SOLN 5 ML OU SCH (21:54)
[2020-09-16 22:00] VITALS: BP 119/85
[2020-09-17] MEDS: ceFAZolin SOD 2 GM in IV 1 EA IV SCH (05:05)
[2020-09-17 06:00] VITALS: BP 145/70
[2020-09-17] MEDS: COSOPT OCUMETER PLUS 10ML (DORZOLAMIDE/TIMOLOL) OU SCH (08:35)
[2020-09-17] MEDS: BRIMONIDINE 0.15% OPHTH SOLN 5 ML OU SCH (08:37)
[2020-09-17 08:38] VITALS: BP 145/70
[2020-09-17] MEDS: FUROSEMIDE 20 MG TAB PO SCH ×2 (08:38→08:41)
[2020-09-17] MEDS: DOCUSATE SODIUM 100MG CAPSULE PO SCH (08:38)
[2020-09-17] MEDS: GABAPENTIN 400 MG CAP PO SCH (08:38)
[2020-09-17] MEDS: HumaLOG INSULIN (NovoLOG) PER UNIT SC SCH (08:39)
[2020-09-17] MEDS: PANTOPRAZOLE 40MG TAB (PROTONIX) PO SCH (08:39)
[2020-09-17] MEDS ORDERED: FLUTICASONE PROP 0.05% NASAL SPRAY 16 GM (FLONASE) SCH (09:00)
[2020-09-17] MEDS ORDERED: lisinopriL 10 MG TAB PO SCH (09:00)
[2020-09-17] MEDS ORDERED: DULoxetine 30 MG CAP (CYMBALTA) PO SCH (09:00)
[2020-09-17] MEDS ORDERED: CEPH500C PO (10:00)
--- NOTE | 2020-09-17 12:21 | IPN ---
PROGRESS NOTE DATE: 09/16/2020 SUBJECTIVE: Leatha Moreno was admitted yesterday. She underwent a left transmetatarsal amputation by Dr. Moser for osteomyelitis. She was admitted overnight for observation. Plan is apparently for discharge today after he sees her. She feels well and is eager to go home. PHYSICAL EXAMINATION: VITAL SIGNS: Stable, afebrile. LUNGS: clear. ABDOMEN: Soft, nontender. EXTREMITIES: Left foot has a little bit of blood on the undersurface of the dressing. IMPRESSION: Osteomyelitis. PLAN: I expect that she is going to be discharged today. She will be maintained on her usual medications upon discharge. We will wait for Dr. Moser's rounds.
[2020-09-17] MEDS ORDERED: WARFARIN SOD 2MG TAB PO SCH (17:00)
[2020-09-18] MEDS ORDERED: FERROUS GLUCONATE 324 MG TAB PO SCH (09:00)
[2020-09-18] MEDS ORDERED: WARFARIN SOD 4MG TAB PO SCH (17:00)
== END 2020-09-17 12:30 | disposition home or self-care (01) ==
LOC: M SDC 10:53 → M MS5PR 15:15 → M SDC 09-17 12:30
PROVIDERS: ATTEND Podiatrist Foot & Ankle Surgery
DX: M86.172 Other acute osteomyelitis, left ankle and foot (principal); E11.621 Type 2 diabetes mellitus with foot ulcer; I70.245 Atherosclerosis of native arteries of left leg with ulceration of other part of foot; L97.529 Non-pressure chronic ulcer of other part of left foot with unspecified severity; E11.40 Type 2 diabetes mellitus with diabetic neuropathy, unspecified; E78.00 Pure hypercholesterolemia, unspecified; H40.9 Unspecified glaucoma; I10 Essential (primary) hypertension; J45.909 Unspecified asthma, uncomplicated; K21.9 Gastro-esophageal reflux disease without esophagitis; Z79.01 Long term (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 of anticoagulants; Z79.4 Long term (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 of insulin; Z79.52 Long term (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 of systemic steroids; Z79.899 Other long term (current) drug therapy; Z88.5 Allergy status to narcotic agent; Z86.711 Personal history of pulmonary embolism; Z86.718 Personal history of other venous thrombosis and embolism; Z96.641 Presence of right artificial hip joint
CPT/HCPCS: 28805; 36415; 85610; 88304; 88311; 96360; 96361; 96372; 97116; 97161; 97165; J0131; J0690; J1100; J1885; J2250; J2405; J3010

== ENCOUNTER → 2020-11-19 | Outpatient (CLI) | payer MEDICARE, MEDICAID ==
[~2020-11-19] MED LIST changes: +BRIM0.2S13 OU; -BUPIVACAINE HCL 0.5% 10ML VIAL As Ordered ONE; +CEPH500C PO; +FERR324T21 PO; -FERR325T16 PO; -LIDOCAINE 1% MDV 20ML VIAL As Ordered ONE; -LIDOCAINE 2% 100MG/5ML SDV (FOR ANES.) As Ordered ONE; +LISI10TA22 PO; -LISI10TA4 PO; -LR 1,000 ML IV ONE; -MIDAZOLAM INJ 2MG/2ML VIAL (J2250 PER 1MG) As Ordered ONE; -ONDANSETRON 4MG/2ML VIAL As Ordered ONE; -ceFAZolin SOD 2 GM in IV 1 EA IV ONE; -dexameTHASONE 4 MG/ML 1ML VIAL (J1100 PER 1MG) As Ordered ONE; -fentaNYL 100 MCG/2 ML INJECTION (J3010) As Ordered ONE; -propofoL 200 MG/20 ML VIAL As Ordered ONE
== END ==
LOC: M WUC 11:58
PROVIDERS: ATTEND Surgery
DX: E11.621 Type 2 diabetes mellitus with foot ulcer (principal); T86.828 Other complications of skin graft (allograft) (autograft)
CPT/HCPCS: 36415; 83036; G0277

== ENCOUNTER → 2020-11-26 | Outpatient (REF) | payer MEDICARE, MEDICAID ==
[2020-11-26 21:00] LABS: PERCENT SATURATION 18.3 % (13.2-45.0)
== END ==
LOC: M LAB REF 16:22
PROVIDERS: ATTEND Internal Medicine
DX: D50.9 Iron deficiency anemia, unspecified (principal); E11.621 Type 2 diabetes mellitus with foot ulcer; T86.828 Other complications of skin graft (allograft) (autograft)
CPT/HCPCS: 11042; 15271; 82728; 83550; G0277; Q4110

== ENCOUNTER → 2021-05-19 | Outpatient (REF) | payer MEDICARE, MEDICAID ==
[~2021-05-19] MED LIST changes: +GABA-283 PO; -GABA-845 PO
[2021-05-19 18:01] LABS: PERCENT SATURATION 18.6 % (13.2-45.0)
[2021-05-19 18:40] LABS: HEPATITIS C VIRUS ABY INDEX 0.1 INDEX (<0.8)
== END ==
LOC: M LAB REF 16:35
PROVIDERS: ATTEND Internal Medicine
DX: Z01.89 Encounter for other specified special examinations (principal); D50.9 Iron deficiency anemia, unspecified

== ENCOUNTER 2021-06-02 12:43 | Inpatient (IN) | payer MEDICARE, OTHER ==
[~2021-06-02] VITALS: Ht 160 cm; Wt 108.1 kg
[~2021-06-02 12:43] MED LIST changes: -FLUTISP; +FLUTISP NARES
[2021-06-02 14:15] LABS: BASO # 0.1 10^3/uL (0.0-0.2); BASO % 0.3 % (0.0-1.0); EOS # 0.1 10^3/uL (0.0-0.5); EOS % 0.3 % (0.0-3.0); HEMATOCRIT 43.4 % (36.0-47.0); HEMOGLOBIN 13.4 g/dl (12.0-15.5); LYMPH # 0.7 10^3/uL (1.5-5.0); LYMPH % 3.4 % (24.0-44.0); MEAN CORPUSCULAR HEMOGLOBIN 29.8 pg (27.0-33.0); MEAN CORPUSCULAR HGB CONC 30.9 g/dl (32.0-36.5); MEAN CORPUSCULAR VOLUME 96.4 fl (80.0-96.0); MONO # 0.9 10^3/uL (0.0-0.8); MONO % 4.4 % (2.0-8.0); NEUTROPHILS # 18.1 10^3/uL (1.5-8.5); NEUTROPHILS % 91.1 % (36.0-66.0); PLATELET COUNT, AUTOMATED 295 10^3/uL (150-450); WHITE BLOOD COUNT 19.8 10^3/uL (4.0-10.0)
[2021-06-02 14:39] LABS: RSV AMPLIFICATION NEGATIVE (NEGATIVE)
--- NOTE | 2021-06-02 15:12 | REP ---
INDICATION: DYSPNEA/COUGH. COMPARISON: Multiple the latest 02/23/2020 also portable TECHNIQUE: Portable FINDINGS: The technique utilized in obtaining the radiograph has magnified the cardiac silhouette and accentuated the interstitial markings. There is global cardiomegaly accentuated by technique status quo. Once again, there is a diffuse increase in the interstitial markings throughout the lung cooley accentuated by technique. There is evidence of pulmonary vascular redistribution, however, the examination is portable. The pleural angles remain sharp. There is no change in the osseous structures. IMPRESSION: Global cardiomegaly and possible mild interstitial edema. <Electronically signed by Laurent Lane > 06/02/21 [id number]
[2021-06-02] MEDS ORDERED: ACETAMINOPHEN 325 MG TAB PO ONE (15:35)
[2021-06-02] MEDS ORDERED: PIPERACILLIN/TAZOBACTAM SOD 4.5 GM in D5W MINI-BAG PLUS 50 ML IV ONE (15:45)
[2021-06-02] MEDS ORDERED: NS 1,000 ML IV ONE ×2 (15:50→18:35)
[2021-06-02 15:54] LABS: ALBUMIN 3.2 GM/DL (3.2-5.2); BILIRUBIN,DIRECT 0.6 MG/DL (0.0-0.2); BILIRUBIN,TOTAL 1.9 MG/DL (0.2-1.0); CALCIUM LEVEL 8.6 MG/DL (8.8-10.2); CREATININE FOR GFR 1.49 MG/DL (0.55-1.30); GLOMERULAR FILTRATION RATE 37.2 (>45); POTASSIUM SERUM 5.3 MEQ/L (3.5-5.1)
[2021-06-02] MEDS ORDERED: LIDOCAINE 2% 5ML JELLY UROJET TOP ONE (16:00)
[2021-06-02 16:25] LABS: CK-MB VALUE MASS 6.4 NG/ML (<3.6); MB/CK RELATIVE INDEX 4.71 (< OR =4); TROPONIN I 0.58 NG/ML (< 0.10)
--- OUTSIDE RECORDS SUMMARY | 2021-06-02 16:52 | CCD | Continuity of Care Document ---
Author Author Leatha MURPHY Organization Unknown Address [address] [facility] [address] [place] [address] Phone [phone] Care Team Providers Care Grinder Operator External Tool Name Role Phone Russel Yoder MD AUTM [phone] Stephanie Murphy DO AUTM Unavailable Tiana Power MD AUTM [phone] Serg Ledbetter MD AUTM [phone] Umesh Queen III, MD AUTM Unavailable Roseline Ponce AUTM [phone] Pepe Griffiths MD AUTM [phone] Irene Woods MD AUTM [phone] [facility] Radiology AUTM [phone] Problems Active Problems Provider Date Disorder of eye due to type 2 diabetes mellitus RAEGAN Jeronimo Onset: 01/28/2015 Nonproliferative retinopathy due to diabetes mellitus RAEGAN Piper Onset: 01/28/2015 Encephalitis RAEGAN Piper Onset: 01/28/2015 Pulmonary embolism RAEGAN Piper Onset: 01/28/2015 Deficiency anemias RAEGAN Piper Onset: 01/28/2015 Essential hypertension RAEGAN Piper Onset: 5 Pure hypercholesterolemia Anali Maciel D.O. Onset: 01/28/2015 Social History Type Date Description Comments Sex Unknown ETOH Use Denies alcohol use Tobacco Use Start: Unknown Patient has never smoked Allergies and adverse reactions Active Allergies Criticality Reaction | Severity Comments Date Celebrex Unable to assess criticality PURPLE SKIN WITH ITCHING AND BURNING KNEE AND FOOT 04/25/2013 Codeine Unable to assess criticality COMA FOR A WEEK 04/25/2013 Medications Active Medications SIG Qnty Indications Ordering Provide r Date Eliquis 5mg Tablets take 1 tablet by mouth twice daily 60tabs Stephanie Murphy,DO 11/26/2020 BD Pen Needle/Mahsa 2ND Gen/32G X 5/32" 32G X 4 mm Misc use daily with levemir 90units Stephanie Murphy,DO Allergy 180mg T salvatore 1 Tablet By Mouth In The Morning 30units Stephanie Murphy,DO 04/13/2020 Furosemide 20mg Tablets Take 1 Tablet By Mouth Once Daily as Needed For Edema 30tabs Stephanie Murphy ,DO 04/13/2020 Clotrimazole/Betamethasone Dipropionate 1-0.05% Cream Apply To Groin Twice Daily as Needed For Rash 15units LANE Phillips JR 03/19/2020 Glucose Instant Energy 4-6GM-mg Ch ewtabs Take one as needed for low bloodsugars 30units LANE Phillips JR 03/19/2020 Eq Allergy Relief 180mg Tablets take 1 tablet by mouth once daily in the morning 30tabs Stephanie Murphy, 02/10/2020 Flonase Allergy Relief 50mcg/Act Suspension 2 sprays per nostril every in the morning as needed 29.7ml Stephanie Murphy, 01/14/2020 Simvastatin 5mg Tablets Take 1 Tablet By Mouth AT Bedtime 90tabs Stephanie Murphy,DO 09/26/2019 Senna-S 8.6-50mg Tablets Take 1 tablet by mouth once daily 30tabs Stephanie Murphy,DO 09/16/2019 Lisinopril 10mg Tablets Take 1 tablet by mouth once daily 90tabs Stephanie Murphy,DO 07/30/2019 Ferrous Gluconate 324(38Fe) mg Tab lets take one tablet by mouth every other day. 45tabs Ramiro Phillips M.D. 07/30/2019 Gabapentin 400mg Capsules Take 1 Capsule By Mouth Three Times Daily 270caps Stephanie Murphy,DO 12/26 Montelukast Sodium 10mg Tablets Take 1 Tablet By Mouth AT Bedtime 30tabs Stephanie Murphy,DO 08/23 Duloxetine HCL 30mg Caps DR Marizol take 1 capsule by mouth twice daily 60caps Stephanie Murphy,DO 05/2019 Aleve 220mg Capsules 2 po qhs as Needed Stephanie Murphy,DO 02/09/2018 Onetouch Delica Lancets Extra Fine 33G Misc Test bid E11.42 200units Stephanie Murphy,DO 8 Onetouch Ultra 2 w/Device Kit test twice a day and as directed e11.9 1units Andrés Alexander, [facility] 01/13 Onetouch Ultra Strips Use 1 Strip To Check Glucose Three Times Daily And as Needed For Hypoglycemia 300units E11.42 L[address] Phillips JR 02/06/2017 Onetouch Suresoft Lancing Device/21G Misc testing twice a day dx: e11.9 1units Stephanie Murphy ,DO 02/06/2017 Novolog Flexpen 100U nit/ML Solution Pen-Inject use 5 units before breakfast, 5 units at lunch and 5 at dinner. 30ml Stephanie Murphy,DO 10/04/2016 BD Pen Needle/Short/Ultrafine/31G X 5/16 " 31G X 8 mm Misc Use qid With Insulin Pens 360units E11.8 Darius Miller O 04/12/2016 Optifoam 6"X6" Pads apply to ulcer every other day. 10units Anjelica Powers, [employer] 03/29/2016 Pantoprazole Sodium 40mg Tablets D R Take 1 tablet by mouth once daily 90tabs Stephanie Murphy,DO 12/21 Levemir Flextouch 10 0Unit/ML Solution Pen-Inject Inject 50 Units Subcutaneously Once Amira y, DO Not Exceed 55 Units Per 24 Hours 45units Stephanie Murphy,DO 08/19/2014 Xalatan 0.005% Solution OU AT Bedtime Unknown Dorzolamide HCL/Timolol Maleate 22.3-6.8mg/ml Solution one drop both eyes twice daily Unknown Brimonidine Tartrate 0.2% Solution one drop in each eye daily Unknown 0 Medications Administered in Office Medication SIG Qnty Indications Ordering Provider Date Covid-19 vaccine, Unspecified Inj ection Unknown 11/13/2020 Immunizations CPT Code Status Date Vaccine Lot # [id number] Given 07/04/2017 Pneumovax 23 [id number] Refused 05/21/2019 Influenza Vaccin e Quadrivalent Preser/Antibiotic Free [place] Use [id number] Refused 05/24/2018 Influenza Virus Vaccine, Quadrivalent ([id number]), Derived From Cell [id number] Refused 07/04/2017 Influenza Vaccin e Quadrivalent Preser/Antibiotic Free Im Use Vital Signs Date Vital Result Comment 05/19/2021 10:55am BP Systolic 122 mmHg BP Diastolic 72 mmHg Heart Rate 72 /min Height 63.5 inches 5'3.50" Weight 238.00 lb O2 % BldC Oximetry 97 % BMI (Body Mass Index) 41.5 kg/m2 11/26/2020 2:09pm BP Systolic 102 mmHg BP Diastolic 60 mmHg Heart Rate 79 /min Height 63.5 inches 5'3.50" Weight 240.00 lb BMI (Body Mass Index) 41.8 kg/m2 Results Test Acquired Date Facility Test Result H/L Range Note Total Iron Binding Capacit 05/19/[address] [address] [phone] Iron (Fe) 66 g/dL Normal 50-170 Total Iron Binding Capacity 354 g/dL Normal 250-450 Percent Saturation 18.6 % Normal 13.2-45.0 Laboratory test finding 05/19/[address] [address] [phone] Hepatitis C Virus Keysha Index 0.1 INDEX Normal <0.8 1 Ferritin 58 NG/ML Normal 8-252 Complete Blood Count 05/19/2021 [facility] Salesforce Trainer: [place] [address] [phone] WBC 7.4 x10*3/UL 4.1 - 10.9 RBC 4.41 x10*6/UL 4.20 - 6.30 Hemoglobin 13.1 g/dL 12.0 - 18.0 Hematocrit 39.9 % 37.0 - 51.0 MCV 90.5 fL 80.0 - 97.0 MCH 29.7 pg 26.0 - 32.0 MCHC 32.8 g/dL 31.0 - 38.0 RDW 13.7 % 11.6 - 13.7 PLT 273 x10*3/UL 140 - 440 MPV 8.0 FL 7.8 - 11.0 Lymph % 15.2 % 10.0 - 58.5 Mid % 4.0 % 1.7 - 9.3 Neut % 80.8 % 37.0 - 92.0 Lymph # 1.1 x10*3/UL 0.6 - 4.1 Mid # 0.3 x10*3/UL 0.1 - 0.6 Neut # 6.0 x10*3/UL 2.0 - 7.8 A1c 05/19/2021 [facility] , Salesforce Trainer: [place] [address] [phone] Hba1c 7.0 % High <5.7 2 Est Avg Glucose 154 mg/dL High 60 - 110 Comprehensive Chem Profile 05/19/2021 [facility], Salesforce Trainer: [place] [address] [phone] Glucose 93 mg/dL 74 - 99 3 BUN 19 mg/dL High 7 - 18 Creatinine 1.2 mg/dL 0.6 - 1.3 Sodium 139 mEq/L 136 - 145 Potassium 4.6 mEq/L 3.5 - 5.1 Chloride 104 mEq/L 98 - 107 Carbon Dioxide 25 mEq/L 21 - 32 Calcium 8.8 mg/dL 8.5 - 10.1 Alk. Phosphatase 175 mg/dL High 46 - 116 4 Total Bilirubin 1.6 mg/dL High 0.2 - 1.0 Ast (Sgot) 19 U/L 15 - 37 Alt (SGPT) 16 U/L 12 - 78 Albumin 3.6 g/dL 3.4 - 5.0 Total Protein 8.0 g/dL 6.4 - 8.2 A/G Ratio 0.82 CALC Low 1.00 - 1.90 GFR 45 mL/min Low >60 GFR 54 mL/min Low >60 5 Lipid Profile 05/19/2021 [facility] , Salesforce Trainer: [place] [address] [phone] Cholesterol 117 mg/dL Low 131 - 200 Triglycerides 88 mg/dL 30 - 150 HDL Cholesterol 50 mg/dL 35 - 60 LDL (Calculated) 49 CALC Low 50 - 159 Microalbumin/Creatinine Urine 05/19/2021 [facility] Salesforce Trainer: [place] [address] [phone] Microalbumin Urine 6.1 mg/L 1.3 - 20.0 Urine Creatinine 20.3 mg/dL Low 30.0 - 125.0 Microalb/Creat Ratio 30.0 ug/mg High 0.0 - 30.0 Laboratory test finding 12/01/2020 Wi-Inr Inr 1.2 Laboratory test finding 11/26/2020 Wi-Inr Inr 2.6 Total Iron Binding Capacit 11/26/[address] [address] [phone] Iron (Fe) 64 g/dL Normal 50-170 Total Iron Binding Capacity 350 g/dL Normal 250-450 Percent Saturation 18.3 % Normal 13.2-45.0 Laboratory test finding 11/26/[address] [address] [phone] Ferritin 52 NG/ML Normal 8-252 Complete Blood Count 11/26/2020 [facility] Salesforce Trainer: [place] [address] [phone] WBC 6.7 x10*3/UL 4.1 - 10.9 RBC 4.12 x10*6/UL Low 4.20 - 6.30 Hemoglobin 12.3 g/dL 12.0 - 18.0 Hematocrit 37.6 % 37.0 - 51.0 MCV 91.1 fL 80.0 - 97.0 MCH 29.8 pg 26.0 - 32.0 MCHC 32.6 g/dL 31.0 - 38.0 RDW 13.5 % 11.6 - 13.7 PLT 326 x10*3/UL 140 - 440 MPV 8.3 FL 7.8 - 11.0 Lymph % 13.2 % 10.0 - 58.5 Mid % 3.2 % 1.7 - 9.3 Neut % 83.6 % 37.0 - 92.0 Lymph # 0.9 x10*3/UL 0.6 - 4.1 Mid # 0.2 x10*3/UL 0.1 - 0.6 Neut # 5.6 x10*3/UL 2.0 - 7.8 A1c 11/26/2020 [facility] Salesforce Trainer: Dr Venu Olea [place], [place] [address] [phone] Hba1c 7.4 % High <5.7 6 Est Avg Glucose 166 mg/dL High 60 - 110 Basic Metabolic Panel 11/26/2020 [facility] Salesforce Trainer: Dr Venu Olea [place], [place] [id number] [phone] Glucose 255 mg/dL High 74 - 99 7 BUN 25 mg/dL High 7 - 18 Creatinine 1.5 mg/dL High 0.6 - 1.3 Sodium 134 mEq/L Low 136 - 145 Potassium 5.1 mEq/L 3.5 - 5.1 Chloride 101 mEq/L 98 - 107 Carbon Dioxide 28 mEq/L 21 - 32 Calcium 8.9 mg/dL 8.5 - 10.1 GFR 35 mL/min Low >60 GFR 42 mL/min Low >60 8 1 Negative Not infected with HCV, unless recent infection is suspected or other evidence exists to indicate HCV infection. 2 Lab Result Notes: Pre-Diabetes 5.7 - 6.4 % Diabetes = or > 6.5% 3 100-125 mg/dL PRE-DIABET ES/FASTING >126 mg/dL DIABETES/FASTING 4 NOTE: mary ann wayne verified 5 CHRONIC KIDNEY DISEASE STAGI NG PER NKF STAGE I & II GFR >= 60 NORMAL TO MILDLY DECREASED STAGE III GFR 30-59 MODERATELY DECREASED STAGE IV GFR 15-29 SEVERELY DECREASED STAGE V GFR <15 VERY LITTLE GFR LEFT ESRD GFR <15 ON PROJECT FINANCE ANALYST 6 Lab Result Notes: Pre-Diabetes 5.7 - 6.4 % Diabetes = or > 6.5% 7 100-125 mg/dL PRE-DIABET ES/FASTING >126 mg/dL DIABETES/FASTING 8 CHRONIC KIDNEY DISEASE STAGI NG PER NKF STAGE I & II GFR >= 60 NORMAL TO MILDLY DECREASED STAGE III GFR 30-59 MODERATELY DECREASED STAGE IV GFR 15-29 SEVERELY DECREASED STAGE V GFR <15 VERY LITTLE GFR LEFT ESRD GFR <15 ON PROJECT FINANCE ANALYST Procedures Date Code Description Status 05/19/2021 27728 Office/Outpatient Established Mo d MDM 30-39 Min Completed 05/13/2021 [id number] Diabetic Retinal Eye Exam Comple yadiel 04/02/2021 51450 Chronic Care MGMT 20 Mins Clinical Staff Time Per Calendar Month Completed 04/02/2021 68158 Chronic Care Management Services Ea Addl 20 Min Completed 02/26/2021 40799 Chronic Care Management Services Ea Addl 20 Min Completed 02/26/2021 39789 Chronic Care MGMT 20 Mins Clinical Staff Time Per Calendar Month Completed 02/09/2021 71183 Complex Chronic Care Management SVC 1St 60 Min Completed 02/09/2021 08336 Complex Chronic Care MGMT Servic e Ea Addl 30 Min Completed 01/04/2021 30432 Chronic Care MGMT 20 Mins Clinical Staff Time Per Calendar Month Completed 11/26/2020 76311 Office/Outpatient Established Mo d MDM 30-39 Min Completed 11/25/2020 99833 Chronic Care Management Services Ea Addl 20 Min Completed 11/25/2020 07223 Chronic Care MGMT 20 Mins Clinical Staff Time Per Calendar Month Completed 04/23/2020 [id number] Mammogram Completed 06/27/2019 [id number] Diabetic Retinal Eye Exam [facility]ple [facility] 04/19/2019 138515116 Bone Mineral Density Test Comple [facility] 04/19/2019 94455017 Mammogram Completed 02/20/2018 97121591 Mammogram Completed 06/08/2017 [id number] Diabetic Retinal Eye Exam Comple [facility] 12/15/2016 [id number] Diabetic Retinal Eye Exam Comple [facility] 12/24/2015 134103939 Diabetic Retinal Eye Exam Comple [facility] 07/13/2015 810118420 Diabetic Retinal Eye Exam Com[facility] 12/04/2014 21726028 Colonoscopy Completed 10/30/2014 172628284 Diabetic Retinal Eye Exam Comple yadiel 03/17/2014 002018924 Diabetic Retinal Eye Exam Comple yadiel 01/20/2014 719159422 Diabetic Retinal Eye Exam Com[facility] 09/20/2013 619466265 Diabetic Retinal Eye Exam [facility] 04/30/2013 97510242 Mammogram Completed 01/18/2013 432184576 Diabetic Retinal Eye Exam [facility] Medical Devices Description No Information Available Encounters Type Date Location Provider Dx Diagnosis Office Visit 05/19/2021 11:[facility]a [facility] Murphy DO E11.42 Type 2 diabetes mellitus with diabetic polyneuropathy Z79.4 care home (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 of i nsulin D50.9 Iron deficiency anemia, unsp ecified Z86.711 Personal history of pulmonar y embolism Z79.01 parts counterman (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 of a nticoagulants G89.29 Other chronic pain Z89.411 Acquired absence of right gr eat toe Z89.432 Acquired absence of left primo t Z86.010 Personal history of colonic polyps E78.00 Pure hypercholesterolemia, u nspecified Z13.89 Encounter for screening for other disorder Office Visit [facility]26[facility] D50.9 Iron deficiency anemia, unspecified Z86.711 Personal history of pulmonar y embolism Z79.01 care home (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 of a nticoagulants I10 Essential (primary) hyperten frieda G89.29 Other chronic pain E11.42 Type 2 diabetes mellitus wit h diabetic polyneuropathy Z79.4 care home (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 of i nsulin Z89.411 Acquired absence of right gr eat toe Assessments Date Code Description Provider 05/19/2021 E11.42 Type 2 diabetes mellitus with di abetic polyneuropathy Stephaniesanna Murphy,DO 05/19/2021 Z79.4 parts counterman (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 of insul in Stephanie Murphy,DO 05/19/2021 D50.9 Iron deficiency anemia, unspecif ied Stephanie Jeffrey,DO 05/19/2021 Z86.711 Personal history of pulmonary em bolism Stephanie Murphy,DO 05/19/2021 Z79.01 care home (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 Stephanie Murphy,DO 05/19/2021 G89.29 Other chronic pain Stephanie Murphy,D O 05/19/2021 Z89.411 Acquired absence of right great toe Stephanie Murphy,DO 05/19/2021 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 Stephanie Murphy,DO 05/19/2021 Z86.010 Personal history of colonic poly ps Stephanie Murphy,DO 05/19/2021 E78.00 Pure hypercholesterolemia, unspe cified Stephanie Murphy,DO 05/19/2021 Z13.89 Encounter for screening for othe r disorder Stephanie Jeffrey,DO 04/02/2021 E11.42 Type 2 diabetes mellitus with di abetic polyneuropathy Stephanie Jeffrey,DO 04/02/2021 K21.9 Gastro-esophageal reflux disease without esophagitis Stephanie Jeffrey,DO 04/02/2021 I26.99 Other pulmonary embolism without acute cor pulmonale Stephanie Jeffrey,DO 02/26/2021 E11.42 Type 2 diabetes mellitus with di abetic polyneuropathy Stephanie Jeffrey,DO 02/26/2021 K21.9 Gastro-esophageal reflux disease without esophagitis Stephanie Jeffrey,DO 02/26/2021 I26.99 Other pulmonary embolism without acute cor pulmonale Stephanie Jeffrey,DO 02/09/2021 I26.99 Other pulmonary embolism without acute cor pulmonale Stephanie Jeffrey,DO 02/09/2021 E11.42 Type 2 diabetes mellitus with di abetic polyneuropathy Stephanie Jeffrey,DO 02/09/2021 K21.9 Gastro-esophageal reflux disease without esophagitis Stephanie Jeffrey,DO 01/04/2021 E11.42 Type 2 diabetes mellitus with di abetic polyneuropathy Stephanie Jeffrey,DO 01/04/2021 K21.9 Gastro-esophageal reflux disease without esophagitis Stephanie Jeffrey,DO 12/01/2020 Z51.81 Encounter for therapeutic drug l evel monitoring Anjelica Powers, [facility] 12/01/2020 Z51.81 Encounter for therapeutic drug l evel monitoring Protime 12/01/2020 Z79.01 parts counterman (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 Anjelica Powers, [facility] 12/01/2020 Z79.01 parts counterman (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 Protime 12/01/2020 Z86.711 Personal history of pulmonary em bolism Anjelica Powers, [facility] 12/01/2020 Z86.711 Personal history of pulmonary em bolism Protime 11/26/2020 Z51.81 Encounter for therapeutic drug l evel monitoring Anjelica Powers, [facility] 11/26/2020 D50.9 Iron deficiency anemia, unspecif ied Stephanie Murphy,DO 11/26/2020 Z86.711 Personal history of pulmonary em bolism Stephanie Murphy,DO 11/26/2020 Z51.81 Encounter for therapeutic drug l kelsieel monitoring Protime 11/26/2020 Z79.01 care home (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 Stephanie Murphy,DO 11/26/2020 I10 Essential (primary) hypertension Stephanie Murphy,DO 11/26/2020 Z86.711 Personal history of pulmonary em bolism Anjelica Powers, [employer] 11/26/2020 G89.29 Other chronic pain Stephanie MurphyD O 11/26/2020 E11.42 Type 2 diabetes mellitus with di abetic polyneuropathy Stephanie Murphy,DO 11/26/2020 Z86.711 Personal history of pulmonary em bolism Protime 11/26/2020 Z79.4 parts counterman (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 of insul in Stephanie Murphy,DO 11/26/2020 Z89.411 Acquired absence of right great toe Stephanie Murphy,DO 11/26/2020 Z79.01 parts counterman (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 Anjelica Powers, [employer] 11/26/2020 Z79.01 care home (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 Protime 11/25/2020 I10 Essential (primary) hypertension Stephanie Murphy,DO 11/25/2020 G89.29 Other chronic pain Stephaniesanna MurphyDarius O 11/25/2020 E11.42 Type 2 diabetes mellitus with di abetic polyneuropathy Stephanie Murphy,DO 11/25/2020 K21.9 Gastro-esophageal reflux disease without esophagitis Stephanie Murphy DO Plan of Treatment Future Appointment(s):* 10/26/2021 10:40 am - Stephanie Murphy DO at [facility] 05/19/2021 - Stephanie Murphy DO* E11.42 Type 2 diabetes mellitus with diabetic polyneuropathy * Z79.4 care home (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 of insulin * D50.9 Iron deficiency anemia, unspecified * Z86.711 Personal history of pulmonary embolism * Z79.01 care home (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 of anticoagulants * G89.29 Other chronic pain * Z89.411 Acquired absence of right great toe * Z89.432 History of amputation of left midfoot * Z86.010 Personal history of colonic polyps * E78.00 Pure hypercholesterolemia, unspecified * Z13.89 Encounter for screening for other disorder * All * Comments:* Given her age she is having Hep C screening. She scored negative on her depression screening, falls and negative on her cognitive dysfunction. Functional Status Description No Information Available Mental Status Description No Information Available Referrals Description No Information Available
--- OUTSIDE RECORDS SUMMARY | 2021-06-02 16:52 | CCD ---
Author Author [facility] Organization [facility] Address Unknown Phone Unavailable Care Team Providers Care Sales And Leasing Consultant Name Role Phone Serg Ledbetter Unavailable PROBLEMS Type Condition ICD9-CM Code EJO64-NN Code Onset Dates Condition S tatus W/U Status Risk SNOMED Code Notes Problem PVD (peripheral vascular disease) I73.9 Active confirmed 626955661 Problem Osteomyelitis of foot, left, acute M86.172 Activ e confirmed 34258044 Problem Gastroesophageal reflux disease without esophagitis K21.9 Active confirmed 146735440 Problem Non-pressure chronic ulcer o f other part of right foot with fat layer exposed L97.512 Active confirmed 163689472 Problem Chronic ulcer of right great toe with fat layer exposed L97.512 Active confirmed 829509811 Problem Infection due to Enterobacter cloacae A49.8 Ac tive confirmed 963140988 Problem 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 Active confirmed 629639945 Problem Charcot foot due to diabetes mellitus E11.610 Ac tive confirmed 161229062 Problem Streptococcal infection, unspecified site A49.1 Active confirmed 945565014 Problem Non-pressure chronic ulcer o f other part of left foot limited to breakdown of skin L97.521 Active confirmed 726354526 Problem Suspected deep tissue injury of unknown depth of heel S90.30XA Active confirmed 239035861 Problem 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 Active confirmed 854530933 Problem Resistance to vancomycin Z16.21 Active confirmed 96075779 Problem Non-pressure chronic ulcer o f other part of left foot with fat layer exposed L97.522 Active confirmed 410783323 Problem Chronic multifocal osteomyelitis of right foot M86 .371 Active confirmed 124924252 Problem Pain in right foot M79.671 Active confirmed 31378343 Problem Ischemic ulcer of toe of right foot with necrosis of bone L97.514 Active confirmed 456141480 Problem Pain of left foot M79.672 Active confirmed 3 11002881242903 Problem 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 of muscle L97.413 Active confirmed 887979613 Problem Type 2 diabetes mellitus with foot ulcer E11.621 Active confirmed 196554465 Problem Diabetic peripheral neuropathy E11.42 Active confir med 299239674 Problem 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 L97.414 Active confirmed 265663403 Problem 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 Active confirmed 478743058 Problem Ulcer of left heel, with fat layer exposed L97.422 Active confirmed 889137231 Problem Non-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 and 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 L97.412 Active confirmed 175850020 Problem Non-pressure chronic ulcer o f other part of left foot with unspecified severity L97.529 Active confirmed 102085260 Problem Pressure injury of right heel, stage 2 L89.612 A ctive confirmed 129080642 Problem 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 with unspecified severity L97.429 Active confirmed Problem Postoperative wound dehiscence, subsequent encounter T81.31XD Active confirmed 214431080 Problem 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 Active confirmed 401102895 Problem Deep tissue injury T14.8 Active confirmed 2 75669269 Problem Chronic venous hypertension (idiopathic) with ulcer of left lower extremity I87.312 Active confirmed 862663688438692 Problem Pseudomonas aeruginosa infection A49.8 Active conf irmed 68461999 Problem Abrasion of left heel, initial encounter S90.812A Active confirmed 886090574 Problem 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 L97.422 Active confirmed 376778730 Problem Postoperative dehiscence of skin wound, initial encounter T81.31XA Active confirmed 651302244 Problem Non-pressure ulcer of left lower extremity L97.929 Active confirmed 26190684 Problem Deep tissue injury T14.8XXA Active confirmed 335015930 ALLERGIES Allergen (clinical drug ingredient) Drug/Non Drug Allergy do cumented on EMR Reaction Allergy Type Onset Date Status Codeine Phosphate([facility] Code:[address]-57) put pt in coma D rug Allergy Active celecoxib Celebrex([facility] Code:[address]-65) purple skin,itchy Drug Al lergy Active ENCOUNTERS from 1955 to 2021-05-31 Encounter Location Date Provider Diagnosis [facility] [phone] [place] [address] May, Serg Ledbetter Type 2 diabetes mellitus wit h foot ulcer E11.621 ; 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 ; Non-pressure ulcer of left lower extremity L97.929 and Non-pressure chronic ulcer of other part of right foot with fat layer exposed L97.512 IMMUNIZATIONS Vaccine Route Administration Date Status Influenza 18 yrs & older Flublok Unknown Oct 09, 2019 Refused Influenza 18 yrs & older Flublok Unknown Oct 02, 2019 Refused Influenza 18 yrs & older Flublok Unknown Sep 25, 2019 Refused Influenza 18 yrs & older Flublok Unknown Aug 21, 2019 Refused Influenza 18 yrs & older Flublok Unknown Jul 17, 2019 Refused Influenza 6mo & up Fluzone Unknown Jun 02, 2016 Other s SOCIAL HISTORY Tobacco Use: Social History Observation Description Date Details (start date - stop date) Never Smoker Sex Assigned At : Social History Observation Description Sex Assigned At Unknown Scientologist: Question Answer Notes Scientologist No taoist beliefs that would impact health care; no taoist preference BMI Care Goal Follow-Up Question Answer Notes Above Normal BMI Follow-Up Dietary management educatio n, guidance, and counseling Tobacco Use: Question Answer Notes Are you a: never smoker REASON FOR REFERRAL No Information VITAL SIGNS Weight 243 lbs May, Height 5'4" in May, BMI 41.71 kg/m2 May, Heart Rate 73 /min May, Respiratory Rate 19 /min May, Temperature 97.8 degrees Fahrenheit May, Oximetry 93% May, Blood pressure systolic 118 mm Hg May, Blood pressure diastolic 77 mm Hg May, MEDICATIONS Medication SIG (Take, Route, Frequency, Duration) Notes Start Da te End Date Status Cephalexin 500 MG 1 tablet Orally TID Active prednisoLONE Acetate 1 % 1 drop into affected eye Oph thalmic to left eye Twice a day Not-Taking Pantoprazole Sodium 40 MG 1 tablet Orally twice a day Active NovoLOG FlexPen 100 UNIT/ML as directed Subcutaneous 8 units prior to breakfast and lunch, 10 units before dinner Active Metoclopramide HCl 10 MG 1 tablet before meals Orally Twice a day for 30 day(s) Active Marydel 5-325 MG 1 tablet as needed Orally every 4 hrs as needed for pain 4-10 Active Latanoprost 0.005 % 1 drop into affected eye in the evening Ophthalmic Once a day Active Warfarin Sodium 4 MG 1 tablet Orally Once a day,monday ay 1 1/2 tabs M and F, 1/2 tab on monday Activ e Dorzolamide HCl-Timolol Mal 22.3-6.8 MG/ML 1 drop into affected eye Ophthalmic Twice a day Active Lisinopril 10 MG 1 tablet Orally Daily Active Cymbalta 30 MG 1 capsule Orally with food Once a day for 30 day (s) Feb, Active Ferrous Sulfate 325 (65 Fe) MG 1 tablet Orally every other day Active hydroCHLOROthiazide 12.5 MG 1 tablet in the morning Or ally Once a day for 30 day(s) Active Fluticasone Propionate 50 MCG/ACT 1 spray in each nost ril Nasally Once a day for 30 day(s) Active Atropine Eye Drops 1% evendays once in left eye Active Clindamycin HCl 150 MG 1 tab Orally four times daily for 30 Days Jul, Not-Taking Levemir 60 units Subcutaneous Daily after dinner Active Senna 8.6 MG 2 tablets at bedtime as needed Orally Once a day for 3 0 day(s) Active Fexofenadine HCl 180 MG 1 tablet as needed Orally Once a day for 30 day(s) Active Warfarin Sodium 4 MG 1.5 tablets Orally Once a da y monday and monday, 0.5 tablets orally on wednesdays Act sachi Simvastatin 5 MG 1 tablet in the evening Orally Once a day for 30 day (s) Active Aleve 220 MG 1 tablet with food or milk as needed Orally every 12 hrs Active Insulin Aspart 100 UNIT/ML Subcutaneous 4 units Active Gabapentin 400 MG 1 tablet Orally for pain three times william ly MDD3 for 30 day(s) Active Bactrim DS 800-160 MG 1 tablet Orally Twice a day for 10 days Active Lisinopril-hydroCHLOROthiazide 10-12.5 MG 2 tablet Orally Once a day Active Montelukast Sodium 10 MG 1 tablet Orally Once a day for 30 day(s) Active NovoLOG 100 UNIT/ML as directed Subcutaneous 10 units before breakfast 16 units before lunch, 16 units before dinner Active Santyl 250 UNIT/GM 1 application to affected ar ea Externally Once a day for 30 day(s) Sep, Not-Taking Brimonidine Tartrate 0.15 % 1 drop into affected eye O phthalmic Three times a day Active Kayexalate 15gm/60ml as directed orally once for 1 dose(s) Oct, Active PROCEDURES from 1955 to 2021-05-31 Procedure Date Ordered Result Body Site Medication: 4% Lidocaine topical cream (Anecream) 5gm 2021-05-26 N/A RESULTS No Results REASON FOR VISIT LLE wounds MEDICAL (GENERAL) HISTORY Type Description Date Medical History cataracts Medical History DVT Medical History HTN Medical History Diabetes type II Medical History Right hip fracture Medical History Right heel ulcer osteomyelitis Medical History VRE infection heel Medical History acute osteomyelitis of the l eft heel with culture positive for pseudomonas aeruginosa and Enterobacter started on IV antibiotic Zosyn through PICC line 07/20/16 Medical History pneumonia Medical History glaucoma Surgical History debridement of wound to right heel january 2016 Surgical History Right hip fracture with hemiarthroplasty January 2016 Surgical History hyserectomy Surgical History gall bladder removed Surgical History maribel cataract Surgical History picc line 2015 Surgical History revasc - right leg 09/22/2016 Surgical History left great toe amputation 02/2017 Surgical History revasc - left leg 02/2017 Surgical History Right eye surgery 07/2017 Surgical History Left pinky toe removal january 2019 Surgical History left transmetatarsal amputation 09/2020 Surgical History angioplasty 09/2020 Hospitalization History debridement of wound to right heel j une 2015 Hospitalization History illness, sent to [facility] 06/2014 Hospitalization History pacreatitis and brain infection 06/15 014 Hospitalization History gall bladder and hysterectomy Hospitalization History Hip surgery January 2016 Hospitalization History infected toe 02/2017 Hospitalization History weakness 07/2017 Hospitalization History Left foot infection/ pinky toe amput ation january 2019 Goals Section No Information Health Concerns No Information MEDICAL EQUIPMENT No Information MENTAL STATUS No Information FUNCTIONAL STATUS No Information ASSESSMENTS Encounter Date Diagnosis Assessment Notes Treatment Notes Treatm ent Clinical Notes May, Type 2 diabetes mellitus with foot ulcer (ICD-10 - E11.621) May, Other complications of skin graft (allograft) (autograft) (ICD-10 - T86.828) May, Non-pressure ulcer of left lower extremity (ICD- 10 - L97.929) May, Non-pressure chronic ulcer o f other part of right foot with fat layer exposed (ICD-10 - L97.512) PLAN OF TREATMENT Next Appt Details 2 Weeks Reason: Provider Name:Serg Ledbetter, 11:00:00 AM, [address], , [place], [address], Provider Name:Serg Ledbetter, 11:00:00 AM, [address], , [place], [address], Insurance Providers Payer Name Payer Address Payer Phone Insured Name Patient Relati onship to Insured Coverage Start Date Coverage End Date MEDICAID [employer] [address] [facility] [id number] [place] [facility] [address] [facility] [phone] [place]
--- OUTSIDE RECORDS SUMMARY | 2021-06-02 16:53 | CCD | Continuity of Care Document ---
Author Author Nurse #Leatha Hough Organization Unknown Address [address] [facility] [address] [place] [address] Phone Unavailable Care Team Providers Care Sustainability Analyst Name Role Phone Russel Yoder MD AUTM [phone] Stephanie Murphy DO AUTM Unavailable Tiana Power MD AUTM [phone] Serg Ledbetter MD AUTM [phone] Umesh Queen III, MD AUTM Unavailable Roseline Ponce AUTM [phone] Pepe Griffiths MD AUTM [phone] Irene Woods MD AUTM [phone] [facility] AUTM [phone] Problems Active Problems Provider Date Disorder of [...] ITCHING AND BURNING KNEE AND FOOT 04/25/2013 Jhonny Unable to assess criticality COMA FOR A [...] once daily in the morning 30tabs Stephanie Murphy,DO 02/10/2020 Flonase Allergy Relief 50mcg/Act Suspension 2 sprays per nostril every in the morning as needed 29.7ml Stephanie Murphy,DO 01/14/2020 Simvastatin 5mg Tablets Take 1 Tablet [...] Murphy,DO 08/23 Duloxetine HCL 30mg Caps DR Part take 1 capsule by mouth twice daily 60caps Stephanie Murphy,DO 05/2019 Aleve 220mg Capsules 2 po qhs as Needed Stephanie Murphy,DO 02/09/2018 Onetouch Delica Lancets Extra Fine 33G Misc Test bid E11.42 200units Stephanie Murphy,DO 8 Onetouch Ultra 2 w/Device Kit test twice a day and as directed e11.9 1units Andrés Alexander, PROTECTION ENGINEER 01/13 Onetouch Ultra Strips Use 1 Strip To Check Glucose Three Times Daily And as Needed For Hypoglycemia 300units E11.42 Mick Zuniga JR PA 02/06/2017 Onetouch Suresoft Lancing Device/21G Misc testing [...] ulcer every other day. 10units Anjelica Powers, PROTECTION ENGINEER 03/29/2016 Pantoprazole Sodium 40mg Tablets D R [...] CPT Code Status Date Vaccine Lot # [id number] Given 07/04/2017 Pneumovax 23 [id number] Refused 05/21/2019 Influenza Vaccin e Quadrivalent Preser/Antibiotic Free Im Use 00423 Refused 05/24/2018 Influenza Virus Vaccine, Quadrivalent (Cciiv4), Derived From Cell [id number] Refused 07/04/2017 Influenza Vaccin e Quadrivalent Preser/Antibiotic [...] Date Facility Test Result H/L Range Note Laboratory test finding 05/19/2021 [place] [id number] [phone] Hepatitis C Antibody <pending> Ferritin <pending> Laboratory test finding 05/19/2021 [place] [facility] Specialty Department Supervisor: Dr Venu Olea [place] [id number] [phone] A1c <pending> Laboratory test finding 12/01/2020 [facility] 1.2 Laboratory test finding 11/26/2020 [facility] 2.6 Total Iron Binding Capacit 11/26/2020 [place] [id number] [phone] Iron (Fe) 64 g/dL Normal 50-170 Total Iron Binding Capacity 350 g/dL Normal 250-450 Percent Saturation 18.3 % Normal 13.2-45.0 Laboratory test finding 11/26/[address] [address] [phone] Ferritin 52 NG/ML Normal 8-252 Complete Blood Count 11/26/2020 [place] [facility] [facility] Specialty Department Supervisor: [place] [address] [phone] WBC 6.7 x10*3/UL 4.1 - 10.9 RBC [...] 5.6 x10*3/UL 2.0 - 7.8 A1c 11/26/2020 [facility] Specialty Department Supervisor: [place] [address] [phone] Hba1c 7.4 % High <5.7 1 Est Avg Glucose 166 mg/dL High 60 - 110 Basic Metabolic Panel 11/26/2020 [facility] Specialty Department Supervisor: [place] [address] [phone] Glucose 255 mg/dL High 74 - 99 2 BUN 25 mg/dL High 7 - 18 Creatinine 1.5 mg/dL High 0.6 - 1.3 Sodium 134 mEq/L Low 136 - 145 Potassium 5.1 mEq/L 3.5 - 5.1 Chloride 101 mEq/L 98 - 107 Carbon Dioxide 28 mEq/L 21 - 32 Calcium 8.9 mg/dL 8.5 - 10.1 GFR 35 mL/min Low >60 GFR 42 mL/min Low >60 3 1 Lab Result Notes: Pre-Diabetes 5.7 - 6.4 % Diabetes = or > 6.5% 2 100-125 mg/dL PRE-DIABET ES/FASTING >126 mg/dL DIABETES/FASTING 3 CHRONIC KIDNEY DISEASE STAGI NG PER NKF STAGE I & II GFR >= 60 NORMAL TO MILDLY DECREASED STAGE III GFR 30-59 MODERATELY DECREASED STAGE IV GFR 15-29 SEVERELY DECREASED STAGE V GFR <15 VERY LITTLE GFR LEFT ESRD GFR <15 ON [place] HISTORY PROFESSOR Procedures Date Code Description Status 04/02/2021 62965 Chronic Care Management Services Ea Addl 20 Min Completed 04/02/2021 94291 Chronic Care MGMT 20 Mins Clinical Staff Time Per Calendar Month Completed 02/26/2021 13983 Chronic Care MGMT 20 Mins Clinical Staff Time Per Calendar Month Completed 02/26/2021 69860 Chronic Care Management Services Ea Addl 20 Min Completed 02/09/2021 63278 Complex Chronic Care MGMT Servic e Ea Addl 30 Min Completed 02/09/2021 77214 Complex Chronic Care Management SVC 1St 60 Min Completed 01/04/2021 54334 Chronic Care MGMT 20 Mins Clinical Staff Time Per Calendar Month Completed 11/26/2020 52754 Office/Outpatient Established Mo d MDM 30-39 Min Completed 11/25/2020 30534 Chronic Care MGMT 20 Mins Clinical Staff Time Per Calendar Month Completed 11/25/2020 98847 Chronic Care Management Services Ea Addl 20 Min Completed 04/23/2020 28322198 Mammogram Completed 06/27/2019 805404162 Diabetic Retinal Eye Exam Comple [facility] 04/19/2019 53046394 Mammogram Completed 04/19/2019 165120963 Bone Mineral Density Test Comple [facility] 02/20/2018 38595659 Mammogram Completed 06/08/2017 854726578 Diabetic Retinal Eye Exam Comple [facility] 12/15/2016 966661235 Diabetic Retinal Eye Exam Comple [facility] 12/24/2015 797977994 Diabetic Retinal Eye Exam Comple [facility] 07/13/2015 201499729 Diabetic Retinal Eye Exam Comple [facility] 12/04/2014 77688483 Colonoscopy Completed 10/30/2014 703778679 Diabetic Retinal Eye Exam Comple [facility] 03/17/2014 372067718 Diabetic Retinal Eye Exam Comple [facility] 01/20/2014 896988997 Diabetic Retinal Eye Exam Comple [facility] 09/20/2013 080053804 Diabetic Retinal Eye Exam Comple [facility] 04/30/2013 28066677 Mammogram Completed 01/18/2013 565847724 Diabetic Retinal Eye Exam [facility] Medical Devices Description No Information Available Encounters Type Date Location Provider Dx Diagnosis Office Visit 11/26/2020 2:00p [facility] Stephanie Murphy ,DO D50.9 Iron deficiency anemia, unspecified Z86.711 Personal history of pulmonar y embolism Z79.01 skilled nursing (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 of a nticoagulants I10 Essential (primary) hyperten frieda G89.29 Other chronic pain E11.42 Type 2 diabetes mellitus wit h diabetic polyneuropathy Z79.4 terminologist (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 of i nsulin Z89.411 Acquired absence of right gr eat toe Assessments Date Code Description Provider 05/19/2021 Z12.31 Encounter for screen ing mammogram for malignant neoplasm of breast Stephanie Murphy,DO 05/19/2021 E11.42 Type 2 diabetes mellitus with di abetic polyneuropathy Stephanie Jeffrey,DO 05/19/2021 D50.9 Iron deficiency anemia, unspecif ied Stephanie Murphy,DO 05/19/2021 Z79.01 terminologist (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 Stephanie Jeffrey,DO 05/19/2021 Z86.711 Personal history of pulmonary em bolism Stephanie Murphy,DO 05/19/2021 G89.29 Other chronic pain Stephanie Murphy,D O 05/19/2021 Z79.4 skilled nursing (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 of insul in Stephanie Murphy,DO 05/19/2021 Z89.411 Acquired absence of right great toe Stephanie Murphy,DO 05/19/2021 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 Stephanie Murphy,DO 05/19/2021 Z86.010 Personal history of colonic poly ps Stephanie Jeffrey,DO 04/02/2021 E11.42 Type 2 diabetes mellitus with di abetic polyneuropathy Stephanie Murphy,DO 04/02/2021 K21.9 Gastro-esophageal reflux disease without esophagitis Stephanie Murphy,DO 04/02/2021 I26.99 Other pulmonary embolism without acute cor pulmonale Stephanie Murphy,DO 02/26/2021 E11.42 Type 2 diabetes mellitus with di abetic polyneuropathy Stephanie Ramirezgs,DO 02/26/2021 K21.9 Gastro-esophageal reflux disease without esophagitis Stephanie Murphy,DO 02/26/2021 I26.99 Other pulmonary embolism without acute cor pulmonale Stephanie Murphy,DO 02/09/2021 I26.99 Other pulmonary embolism without acute cor pulmonale Stephanie Jeffrey,DO 02/09/2021 E11.42 Type 2 diabetes mellitus with di abetic polyneuropathy Stephanie Murphy,DO 02/09/2021 K21.9 Gastro-esophageal reflux disease without esophagitis Stephanie Jeffrey,DO 01/04/2021 E11.42 Type 2 diabetes mellitus with di abetic polyneuropathy Stephanie Jeffrey,DO 01/04/2021 K21.9 Gastro-esophageal reflux disease without esophagitis Stephanie Murphy,DO 12/01/2020 Z51.81 Encounter for therapeutic drug l evel monitoring Anjelica Powers, [facility] 12/01/2020 Z51.81 Encounter for therapeutic drug l evel monitoring Protime 12/01/2020 Z79.01 terminologist (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 Anjelica Powers, [facility] 12/01/2020 Z79.01 terminologist (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 Protime 12/01/2020 Z86.711 Personal history of pulmonary em bolism Anjelica Powers, [facility] 12/01/2020 Z86.711 Personal history of pulmonary em bolism Protime 11/26/2020 Z51.81 Encounter for therapeutic drug l evel monitoring Anjelica Powers, [facility] 11/26/2020 D50.9 Iron deficiency anemia, unspecif ied Stephanie Jeffrey,DO 11/26/2020 Z86.711 Personal history of pulmonary em bolism Stephanie Jeffrey,DO 11/26/2020 Z51.81 Encounter for therapeutic drug l evel monitoring Protime 11/26/2020 Z79.01 skilled nursing (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 Stephanie Jeffrey,DO 11/26/2020 I10 Essential (primary) hypertension Stephanie Murphy,DO 11/26/2020 Z86.711 Personal history of pulmonary em bolism Anjelica Powers, [facility] 11/26/2020 G89.29 Other chronic pain Stephanie Murphy,D O 11/26/2020 E11.42 Type 2 diabetes mellitus with di abetic polyneuropathy Stephanie Murphy,DO 11/26/2020 Z86.711 Personal history of pulmonary em bolism Protime 11/26/2020 Z79.4 skilled nursing (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 of insul in Stephanie Murphy DO 11/26/2020 Z89.411 Acquired absence of right great toe Stephanie Murphy DO 11/26/2020 Z79.01 terminologist (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 Anjelica Cynthia Coleman, PROTECTION ENGINEER 11/26/2020 Z79.01 terminologist (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 Protime 11/25/2020 I10 Essential (primary) hypertension Stephanie Murphy DO 11/25/2020 G89.29 Other chronic pain Darius Miller O 11/25/2020 E11.42 Type 2 diabetes mellitus with di abetic polyneuropathy Stephanie Murphy DO 11/25/2020 K21.9 Gastro-esophageal reflux disease without esophagitis Stephanie Murphy DO Plan of Treatment Future Appointment(s):* 10/26/2021 10:40 am - Stephanie Murphy DO at [facility] 05/19/2021 - Stephanie Murphy DO* Z12.31 Encounter for screening mammogram for malignant neoplasm of breast* New Xrays:* 3D Bi-Lateral Mammogram, Ordered: 05/19/21 * E11.42 Type 2 diabetes mellitus with diabetic polyneuropathy * D50.9 Iron deficiency anemia, unspecified * Z79.01 skilled nursing (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 of anticoagulants * Z86.711 Personal history of pulmonary embolism * G89.29 Other chronic pain * Z79.4 skilled nursing (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 of insulin * Z89.411 Acquired absence of right great toe * Z89.432 History of amputation of left midfoot * Z86.010 Personal history of colonic polyps Functional Status Description No Information Available Mental Status Description No Information Available Referrals Description No Information Available
--- OUTSIDE RECORDS SUMMARY | 2021-06-02 16:53 | CCD ---
Continuity of Care Document (CCD) Created on: 05/19/2021 Leatha Moreno External Reference #: [id number] : 1955 Sex: Female Author Author Nurse #Leatha Hough Organization Unknown Address [address] [facility] [address] [place] [address] Phone Unavailable Care Team Providers Care Sealant Mixer Name Role Phone Russel Yoder MD AUTM [phone] Stephanie Murphy DO AUTM Unavailable Tiana Power MD AUTM [phone] Serg Ledbetter MD AUTM [phone] Umesh Queen III, MD AUTM Unavailable Roseline Ponce AUTM [phone] Pepe Griffiths MD AUTM [phone] Irene Woods MD AUTM [phone] [facility] AUTM [phone] Problems Active Problems Provider Date Disorder of eye due to type 2 diabetes mellitus RAEGAN Jeronimo Onset: 01/28/2015 Nonproliferative retinopathy due to diabetes mellitus RAEGAN Piper Onset: 01/28/2015 Encephalitis RAEGAN Piper Onset: 01/28/2015 Pulmonary embolism REAGAN Piper Onset: 01/28/2015 Deficiency anemias RAEGAN Piper [...] and as directed e11.9 1units Andrés Alexander, APPLICATION DEVELOPMENT DIRECTOR 01/13 Onetouch Ultra Strips Use 1 Strip [...] ulcer every other day. 10units Anjelica Powers, APPLICATION DEVELOPMENT DIRECTOR 03/29/2016 Pantoprazole Sodium 40mg Tablets D R [...] CPT Code Status Date Vaccine Lot # [id number] Given 07/04/2017 Pneumovax 23 [id number] Refused 05/21/2019 Influenza Vaccin e Quadrivalent Preser/Antibiotic Free Im Use [id number] Refused 05/24/2018 Influenza Virus Vaccine, Quadrivalent (Cciiv4), Derived From Cell [id number] Refused 07/04/2017 Influenza Vaccin e Quadrivalent Preser/Antibiotic [...] H/L Range Note Laboratory test finding 05/19/2021 [facility] [address] [place] [address] [phone] Hepatitis C Antibody <pending> Ferritin <pending> Complete Blood Count 05/19/2021 [facility] [employer]: [place] [address] [phone] WBC 7.4 x10*3/UL 4.1 - 10.9 RBC [...] 6.0 x10*3/UL 2.0 - 7.8 A1c 05/19/2021 [facility] , Production Mechan[employer] Tin Cans: [place] [address] [phone] Hba1c 7.0 % High <5.7 1 Est Avg Glucose 154 mg/dL High 60 - 110 Comprehensive Chem Profile 05/19/2021 [facility], Production Mechanic Tin Cans: [place] [address] [phone] Glucose 93 mg/dL 74 - 99 2 BUN 19 mg/dL High 7 - 18 Creatinine 1.2 mg/dL 0.6 - 1.3 Sodium 139 mEq/L 136 - 145 Potassium 4.6 mEq/L 3.5 - 5.1 Chloride 104 mEq/L 98 - 107 Carbon Dioxide 25 mEq/L 21 - 32 Calcium 8.8 mg/dL 8.5 - 10.1 Alk. Phosphatase 175 mg/dL High 46 - 116 3 Total Bilirubin 1.6 mg/dL High 0.2 - 1.0 Ast (Sgot) 19 U/L 15 - 37 Alt (SGPT) 16 U/L 12 - 78 Albumin 3.6 g/dL 3.4 - 5.0 Total Protein 8.0 g/dL 6.4 - 8.2 A/G Ratio 0.82 CALC Low 1.00 - 1.90 GFR 45 mL/min Low >60 GFR 54 mL/min Low >60 4 Lipid Profile 05/19/2021 [facility] , Production Mechanic Tin Cans: [place] [address] [phone] Cholesterol 117 mg/dL Low 131 - 200 Triglycerides 88 mg/dL 30 - 150 HDL Cholesterol 50 mg/dL 35 - 60 LDL (Calculated) 49 CALC Low 50 - 159 Microalbumin/Creatinine Urine 05/19/2021 [facility], [facility] Tin Cans: [place] [address] [phone] Microalbumin Urine 6.1 mg/L 1.3 - 20.0 Urine Creatinine 20.3 mg/dL Low 30.0 - 125.0 Microalb/Creat Ratio 30.0 ug/mg High 0.0 - 30.0 Laboratory test finding 12/01/2020 [facility] In[facility] 1.2 Laboratory test finding 11/26/2020 [facility] 2.6 Total Iron Binding Capacit 11/26/2020 [facility] [address] [place] [address] [phone] Iron (Fe) 64 g/dL Normal 50-170 Total Iron Binding Capacity 350 g/dL Normal 250-450 Percent Saturation 18.3 % Normal 13.2-45.0 Laboratory test finding 11/26/2020 [facility] [address] [place] [address] [phone] Ferritin 52 NG/ML Normal 8-252 Complete Blood Count 11/26/2020 [facility] [employer] Cans: Dr Venu Olea [place] [id number] [phone] WBC 6.7 x10*3/UL 4.1 - 10.9 RBC [...] 5.6 x10*3/UL 2.0 - 7.8 A1c 11/26/2020 [facility] Production Mechanic Tin Cans: [place] [address] [phone] Hba1c 7.4 % High <5.7 5 Est Avg Glucose 166 mg/dL High 60 - 110 Basic Metabolic Panel 11/26/2020 [facility] [employer] Cans: Dr [address]enu Ole[address] [place], [place] [address] [phone] Glucose 255 mg/dL High 74 - 99 6 BUN 25 mg/dL High 7 - 18 Creatinine 1.5 mg/dL High 0.6 - 1.3 Sodium 134 mEq/L Low 136 - 145 Potassium 5.1 mEq/L 3.5 - 5.1 Chloride 101 mEq/L 98 - 107 Carbon Dioxide 28 mEq/L 21 - 32 Calcium 8.9 mg/dL 8.5 - 10.1 GFR 35 mL/min Low >60 GFR 42 mL/min Low >60 7 1 Lab Result Notes: Pre-Diabetes 5.7 - 6.4 % Diabetes = or > 6.5% 2 100-125 mg/dL PRE-DIABET ES/FASTING >126 mg/dL DIABETES/FASTING 3 NOTE: mary ann wayne verified 4 CHRONIC KIDNEY DISEASE STAGI NG PER NKF STAGE I & II GFR >= 60 NORMAL TO MILDLY DECREASED STAGE III GFR 30-59 MODERATELY DECREASED STAGE IV GFR 15-29 SEVERELY DECREASED STAGE V GFR <15 VERY LITTLE GFR LEFT ESRD GFR <15 ON SUPERVISOR INVENTORY MERCHANDISING 5 Lab Result Notes: Pre-Diabetes 5.7 - 6.4 % Diabetes = or > 6.5% 6 100-125 mg/dL PRE-DIABET ES/FASTING >126 mg/dL DIABETES/FASTING 7 CHRONIC KIDNEY DISEASE STAGI NG PER NKF STAGE I & II GFR >= 60 NORMAL TO MILDLY DECREASED STAGE III GFR 30-59 MODERATELY DECREASED STAGE IV GFR 15-29 SEVERELY DECREASED STAGE V GFR <15 VERY LITTLE GFR LEFT ESRD GFR <15 ON SUPERVISOR INVENTORY MERCHANDISING Procedures Date Code Description Status 04/02/2021 93103 Chronic Care Management Services Ea Addl 20 Min Completed 04/02/2021 95661 Chronic Care MGMT 20 Mins Clinical Staff Time Per Calendar Month Completed 02/26/2021 00252 Chronic Care MGMT 20 Mins Clinical Staff Time Per Calendar Month Completed 02/26/2021 95384 Chronic Care Management Services Ea Addl 20 Min Completed 02/09/2021 90624 Complex Chronic Care MGMT Servic e Ea Addl 30 Min Completed 02/09/2021 75684 Complex Chronic Care Management SVC 1St 60 Min Completed 01/04/2021 59769 Chronic Care MGMT 20 Mins Clinical Staff Time Per Calendar Month Completed 11/26/2020 04444 Office/Outpatient Established Mo d MDM 30-39 Min Completed 11/25/2020 95085 Chronic Care MGMT 20 Mins Clinical Staff Time Per Calendar Month Completed 11/25/2020 78995 Chronic Care Management Services Ea Addl 20 Min Completed 04/23/2020 63074029 Mammogram Completed 06/27/2019 586789351 Diabetic Retinal Eye Exam Comple yadiel 04/19/2019 36851199 Mammogram Completed 04/19/2019 408548116 Bone Mineral Density Test Comple yadiel 02/20/2018 70687982 Mammogram Completed 06/08/2017 896252246 Diabetic Retinal Eye Exam Comple yadiel 12/15/2016 519591003 Diabetic Retinal Eye Exam Comple yadiel 12/24/2015 391700294 Diabetic Retinal Eye Exam Comple yadiel 07/13/2015 952351161 Diabetic Retinal Eye Exam Comple yadiel 12/04/2014 86074451 Colonoscopy Completed 10/30/2014 731157417 Diabetic Retinal Eye Exam Comple yadiel 03/17/2014 954119420 Diabetic Retinal Eye Exam Comple yadiel 01/20/2014 186684032 Diabetic Retinal Eye Exam Comple yadiel 09/20/2013 044451706 Diabetic Retinal Eye Exam Comple yadiel 04/30/2013 94738945 Mammogram Completed 01/18/2013 954335697 Diabetic Retinal Eye Exam Comple yadiel Medical Devices Description No Information Available Encounters Type Date Location Provider Dx Diagnosis Office Visit 11/26/2020 2:00p [facility] Stephanie Murphy DO D50.9 Iron deficiency anemia, unspecified Z86.711 Personal history of pulmonar y embolism Z79.01 nursing home (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 of a nticoagulants I10 Essential (primary) hyperten frieda G89.29 Other chronic pain E11.42 Type 2 diabetes mellitus wit h diabetic polyneuropathy Z79.4 nursing home (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 of i nsulin Z89.411 Acquired absence of right gr eat toe Assessments Date Code Description Provider 05/19/2021 Z12.31 Encounter for screen ing mammogram for malignant neoplasm of breast Stephanie Murphy DO 05/19/2021 E11.42 Type 2 diabetes mellitus with di abetic polyneuropathy Stephanie Murphy DO 05/19/2021 D50.9 Iron deficiency anemia, unspecif ied Stephanie Murphy,DO 05/19/2021 Z79.01 nursing home (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 Stephanie Murphy,DO 05/19/2021 Z86.711 Personal history of pulmonary em bolism Stephanie Murphy,DO 05/19/2021 G89.29 Other chronic pain Stephanie Murphy,D O 05/19/2021 Z79.4 nursing home (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 of insul in Stephanie Murphy,DO 05/19/2021 Z89.411 Acquired absence of right great toe Stephanie Murphy,DO 05/19/2021 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 Stephanie Murphy,DO 05/19/2021 Z86.010 Personal history of colonic poly ps Stephanie Murphy,DO 04/02/2021 E11.42 Type 2 diabetes mellitus with di abetic polyneuropathy Stephanie Murphy,DO 04/02/2021 K21.9 Gastro-esophageal reflux disease without esophagitis Stephanie Ramirezgs,DO 04/02/2021 I26.99 Other pulmonary embolism without acute cor pulmonale Stephanie Murphy,DO 02/26/2021 E11.42 Type 2 diabetes mellitus with di abetic polyneuropathy Stephanie Murphy,DO 02/26/2021 K21.9 Gastro-esophageal reflux disease without esophagitis Stephanie Ramirezgs,DO 02/26/2021 I26.99 Other pulmonary embolism without acute cor pulmonale Stephanie Murphy,DO 02/09/2021 I26.99 Other pulmonary embolism without acute cor pulmonale Stephanie Murphy,DO 02/09/2021 E11.42 Type 2 diabetes mellitus with di abetic polyneuropathy Stephanie Ramirezgs,DO 02/09/2021 K21.9 Gastro-esophageal reflux disease without esophagitis Stephanie Jeffrey,DO 01/04/2021 E11.42 Type 2 diabetes mellitus with di abetic polyneuropathy Stephanie Murphy,DO 01/04/2021 K21.9 Gastro-esophageal reflux disease without esophagitis Stephanie Murphy,DO 12/01/2020 Z51.81 Encounter for therapeutic drug l evel monitoring Anjelica Cynthia Coleman, APPLICATION DEVELOPMENT DIRECTOR 12/01/2020 Z51.81 Encounter for therapeutic drug l evel monitoring Protime 12/01/2020 Z79.01 nursing home (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 Anjeilca Powers, APPLICATION DEVELOPMENT DIRECTOR 12/01/2020 Z79.01 nursing home (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 Protime 12/01/2020 Z86.711 Personal history of pulmonary em bolism Anjelica Powers, APPLICATION DEVELOPMENT DIRECTOR 12/01/2020 Z86.711 Personal history of pulmonary em bolism Protime 11/26/2020 Z51.81 Encounter for therapeutic drug l evel monitoring Anjelica Powers, APPLICATION DEVELOPMENT DIRECTOR 11/26/2020 D50.9 Iron deficiency anemia, unspecif ied Stephanie Murphy,DO 11/26/2020 Z86.711 Personal history of pulmonary em bolism Stephanie Murphy,DO 11/26/2020 Z51.81 Encounter for therapeutic drug l evel monitoring Protime 11/26/2020 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 Stephanie Murphy,DO 11/26/2020 I10 Essential (primary) hypertension Stephanie Murphy,DO 11/26/2020 Z86.711 Personal history of pulmonary em bolism Anjelica Powers, APPLICATION DEVELOPMENT DIRECTOR 11/26/2020 G89.29 Other chronic pain Stephanie Murphy,D O 11/26/2020 E11.42 Type 2 diabetes mellitus with di abetic polyneuropathy Stephanie Murphy,DO 11/26/2020 Z86.711 Personal history of pulmonary em bolism Protime 11/26/2020 Z79.4 nursing home (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 of insul in Stephanie Murphy,DO 11/26/2020 Z89.411 Acquired absence of right great toe Stephanie Murphy,DO 11/26/2020 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
--- OUTSIDE RECORDS SUMMARY | 2021-06-02 16:53 | CCD ---
Author Author [facility] Organization [facility] Address Unknown Phone Unavailable Care Team Providers Care Curator Of Manuscripts Name Role Phone Serg Ledbetter Unavailable PROBLEMS Type Condition ICD9-CM Code YGH17-ZB Code Onset Dates Condition S tatus W/U Status Risk SNOMED Code Notes Problem PVD (peripheral vascular disease) I73.9 Active confirmed 456132956 Problem Osteomyelitis of foot, left, acute M86.172 Activ e confirmed 81130892 Problem Gastroesophageal reflux disease without esophagitis K21.9 Active confirmed 798547589 Problem Non-pressure chronic ulcer o f other part of right foot with fat layer exposed L97.512 Active confirmed 847820723 Problem Chronic ulcer of right great toe with fat layer exposed L97.512 Active confirmed 468923898 Problem Infection due to Enterobacter cloacae A49.8 Ac tive confirmed 077335353 Problem 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 Active confirmed 772942745 Problem Charcot foot due to diabetes mellitus E11.610 Ac tive confirmed 866285556 Problem Streptococcal infection, unspecified site A49.1 Active confirmed 396053189 Problem Non-pressure chronic ulcer o f other part of left foot limited to breakdown of skin L97.521 Active confirmed 303258965 Problem Suspected deep tissue injury of unknown depth of heel S90.30XA Active confirmed 304015277 Problem 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 Active confirmed 534151771 Problem Resistance to vancomycin Z16.21 Active confirmed 80331745 Problem Non-pressure chronic ulcer o f other part of left foot with fat layer exposed L97.522 Active confirmed 423675354 Problem Chronic multifocal osteomyelitis of right foot M86 .371 Active confirmed 114215379 Problem Pain in right foot M79.671 Active confirmed 61228539 Problem Ischemic ulcer of toe of right foot with necrosis of bone L97.514 Active confirmed 951351580 Problem Pain of left foot M79.672 Active confirmed 3 59427364744579 Problem 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 of muscle L97.413 Active confirmed 542915657 Problem Type 2 diabetes mellitus with foot ulcer E11.621 Active confirmed 058654973 Problem Diabetic peripheral neuropathy E11.42 Active confir med 933606351 Problem 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 L97.414 Active confirmed 711582751 Problem 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 Active confirmed 827350655 Problem Ulcer of left heel, with fat layer exposed L97.422 Active confirmed 782367217 Problem Non-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 and 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 L97.412 Active confirmed 664217172 Problem Non-pressure chronic ulcer o f other part of left foot with unspecified severity L97.529 Active confirmed 347332672 Problem Pressure injury of right heel, stage 2 L89.612 A ctive confirmed 765379425 Problem 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 with unspecified severity L97.429 Active confirmed Problem Postoperative wound dehiscence, subsequent encounter T81.31XD Active confirmed 423719385 Problem 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 Active confirmed 725653273 Problem Deep tissue injury T14.8 Active confirmed 2 53652397 Problem Chronic venous hypertension (idiopathic) with ulcer of left lower extremity I87.312 Active confirmed 259211212732505 Problem Pseudomonas aeruginosa infection A49.8 Active conf irmed 41966351 Problem Abrasion of left heel, initial encounter S90.812A Active confirmed 904198643 Problem 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 L97.422 Active confirmed 797353048 Problem Postoperative dehiscence of skin wound, initial encounter T81.31XA Active confirmed 617792261 Problem Non-pressure ulcer of left lower extremity L97.929 Active confirmed 25181093 Problem Deep tissue injury T14.8XXA Active confirmed 254950799 ALLERGIES Allergen (clinical drug ingredient) Drug/Non Drug Allergy do cumented on EMR Reaction Allergy Type Onset Date Status Codeine Phosphate([facility] Code:[address]-50) put pt in coma D rug Allergy Active celecoxib Celebrex([facility] Code:[address]-39) purple skin,itchy Drug Al lergy Active ENCOUNTERS from 1955 to 2021-05-03 Encounter Location Date Provider Diagnosis [facility] [address] [phone] [place] [address] Apr, Serg Ledbetter Type 2 diabetes mellitus wit [...] History Observation Description Sex Assigned At Unknown Congregational: Question Answer Notes Congregational No spiritism beliefs that would impact health care; no spiritism preference BMI Care Goal Follow-Up Question Answer Notes Above Normal BMI Follow-Up Dietary management educatio n, guidance, and counseling Tobacco Use: Question Answer Notes Are you a: never smoker REASON FOR REFERRAL No Information VITAL SIGNS Weight 247 lbs Apr, Weight-kg 112.04 kg Apr, Height 5'4" in Apr, BMI 42.39 kg/m2 Apr, Heart Rate 73 /min Apr, Respiratory Rate 16 /min Apr, Temperature 98.1 degrees Fahrenheit Apr, Oximetry 97 Apr, Blood pressure systolic 150 mm Hg Apr, Blood pressure diastolic 70 mm Hg Apr, MEDICATIONS Medication SIG (Take, Route, Frequency, Duration) Notes Start Da te End Date Status prednisoLONE Acetate 1 % 1 drop into affected eye Oph thalmic to left eye Twice a day Not-Taking Brimonidine Tartrate 0.15 % 1 drop into affected eye O phthalmic Three times a day Active Aleve 220 MG 1 tablet with food or milk as needed Orally every 12 hrs Active Metoclopramide HCl 10 MG 1 tablet before meals Orally Twice a day for 30 day(s) Active Bactrim DS 800-160 MG 1 tablet Orally Twice a day for 10 days Active Senna 8.6 MG 2 tablets at bedtime as needed Orally Once a day for 3 0 day(s) Active Kayexalate 15gm/60ml as directed orally once for 1 dose(s) Oct, Active Clindamycin HCl 150 MG 1 tab Orally four times daily for 30 Days Jul, Active Insulin Aspart 100 UNIT/ML Subcutaneous 4 units Active Dema 5-325 MG 1 tablet as needed Orally every 4 hrs as needed for pain 4-10 Active Santyl 250 UNIT/GM 1 application to affected ar ea Externally Once a day for 30 day(s) Sep, Active hydroCHLOROthiazide 12.5 MG 1 tablet in the morning Or ally Once a day for 30 day(s) Active Lisinopril 10 MG 1 tablet Orally Daily Active Cymbalta 30 MG 1 capsule Orally with food Once a day for 30 day (s) Feb, Active Gabapentin 400 MG 1 tablet Orally for pain three times william ly MDD3 for 30 day(s) Active Montelukast Sodium 10 MG 1 tablet Orally Once a day for 30 day(s) Active Warfarin Sodium 4 MG 1 tablet Orally Once a day,monday ay 1 1/2 tabs M and F, 1/2 tab on monday Activ e Latanoprost 0.005 % 1 drop into affected eye in the evening Ophthalmic Once a day Active NovoLOG 100 UNIT/ML as directed Subcutaneous 10 units before breakfast 16 units before lunch, 16 units before dinner Active Fexofenadine HCl 180 MG 1 tablet as needed Orally Once a day for 30 day(s) Active Ferrous Sulfate 325 (65 Fe) MG 1 tablet Orally every other day Active Simvastatin 5 MG 1 tablet in the evening Orally Once a day for 30 day (s) Active Cephalexin 500 MG 1 tablet Orally TID Active Atropine Eye Drops 1% evendays once in left eye Active Pantoprazole Sodium 40 MG 1 tablet Orally twice a day Active Lisinopril-hydroCHLOROthiazide 10-12.5 MG 2 tablet Orally Once a day Active NovoLOG FlexPen 100 UNIT/ML as directed Subcutaneous 8 units prior to breakfast and lunch, 10 units before dinner Active Dorzolamide HCl-Timolol Mal 22.3-6.8 MG/ML 1 drop into affected eye Ophthalmic Twice a day Active Warfarin Sodium 4 MG 1.5 tablets Orally Once a da y monday and monday, 0.5 tablets orally on wednesdays Act sachi Fluticasone Propionate 50 MCG/ACT 1 spray in each nost ril Nasally Once a day for 30 day(s) Active Levemir 60 units Subcutaneous Daily after dinner Active PROCEDURES from 1955 to 2021-05-03 Procedure Date Ordered Result Body Site Medication: 4% Lidocaine topical cream (Anecream) 5gm 2021-04-28 N/A RESULTS No Results REASON FOR VISIT BLE WOUNDS MEDICAL (GENERAL) HISTORY Type Description Date Medical [...] une 2015 Hospitalization History illness, sent to [facility] 06/2014 Hospitalization History pacreatitis and brain infection [...] Notes Treatment Notes Treatm ent Clinical Notes Apr, Type 2 diabetes mellitus with foot ulcer (ICD-10 - E11.621) Apr, Other complications of skin graft (allograft) (autograft) (ICD-10 - T86.828) Apr, Non-pressure ulcer of left lower extremity (ICD- 10 - L97.929) Apr, Non-pressure chronic ulcer o f other part of right foot with fat layer exposed (ICD-10 - L97.512) PLAN OF TREATMENT Next Appt Details 2 Weeks Reason: Provider Name:Serg Ledbetter, 01:15:00 PM, [address], , [place], [address], Insurance Providers Payer Name Payer Address Payer Phone Insured Name Patient Relati onship to Insured Coverage Start Date Coverage End Date [facility] [id number] [facility] [id number] [employer] [employer] [address] [facility] [id number] [place] self
--- OUTSIDE RECORDS SUMMARY | 2021-06-02 16:53 | CCD | Continuity of Care Document ---
Author Author Leatha MURPHY Organization Unknown Address [address] [facility] [address] [place] [address] Phone [phone] Care Team Providers Care Fur Mixer Operator Name Role Phone Russel Yoder MD AUTM [phone] Stephanie Murphy DO AUTM Unavailable Tiana Power MD AUTM [phone] Serg Ledbetter MD AUTM [phone] Umesh Queen III, MD AUTM Unavailable Roseline Ponce AUTM [phone] Pepe Griffiths MD AUTM [phone] Irene Woods MD AUTM [phone] [facility] AUTM [phone] Problems Active Problems Provider Date Disorder of [...] and as directed e11.9 1units Andrés Alexander, [facility] 01/13 Onetouch Ultra Strips Use 1 [...] ulcer every other day. 10units Anjelica Powers, SSAS DEVELOPER 03/29/2016 Pantoprazole Sodium 40mg Tablets D R [...] CPT Code Status Date Vaccine Lot # 13232 Given 07/04/2017 Pneumovax 23 [id number] Refused 05/21/2019 Influenza Vaccin e Quadrivalent Preser/Antibiotic Free Im Use 69556 Refused 05/24/2018 Influenza Virus Vaccine, Quadrivalent (Cciiv4), Derived From Cell [id number] Refused 07/04/2017 Influenza Vaccin e Quadrivalent Preser/Antibiotic [...] H/L Range Note Laboratory test finding 05/19/2021 [facility] [address], [place] [address] [phone] Hepatitis C Antibody <pending> Ferritin <pending> Complete Blood Count 05/19/2021 [facility] Marriage Therapist: [place] [address] [phone] WBC 7.4 x10*3/UL 4.1 - 10.9 RBC [...] 6.0 x10*3/UL 2.0 - 7.8 A1c 05/19/2021 [facility] , Marriage Therapist: Dr Venu Olea [place], [place] [address] [phone] Hba1c 7.0 % High <5.7 1 Est Avg Glucose 154 mg/dL High 60 - 110 Comprehensive Chem Profile 05/19/2021 [facility], Marriage Therapist: [place] [address] [phone] Glucose 93 mg/dL 74 - 99 2 [...] mL/min Low >60 4 Lipid Profile 05/19/2021 [facility] , Marriage Therapist: [place] [address] [phone] Cholesterol 117 mg/dL Low 131 - 200 Triglycerides 88 mg/dL 30 - 150 HDL Cholesterol 50 mg/dL 35 - 60 LDL (Calculated) 49 CALC Low 50 - 159 Microalbumin/Creatinine Urine 05/19/2021 [facility], Marriage Therapist: [place] [address] [phone] Microalbumin Urine 6.1 mg/L 1.3 - 20.0 Urine Creatinine 20.3 mg/dL Low 30.0 - 125.0 Microalb/Creat Ratio 30.0 ug/mg High 0.0 - 30.0 Laboratory test finding 12/01/2020 [facility] 1.2 Laboratory test finding 11/26/2020 [facility] 2.6 Total Iron Binding Capacit 11/26/2020 [facility] [address] [place] [address] [phone] Iron (Fe) 64 g/dL Normal 50-170 Total Iron Binding Capacity 350 g/dL Normal 250-450 Percent Saturation 18.3 % Normal 13.2-45.0 Laboratory test finding 11/26/2020 [facility] [address] [place] [address] [phone] Ferritin 52 NG/ML Normal 8-252 Complete Blood Count 11/26/2020 [facility] Marriage Therapist: [place] [address] [phone] WBC 6.7 x10*3/UL 4.1 - 10.9 RBC [...] 5.6 x10*3/UL 2.0 - 7.8 A1c 11/26/2020 [facility] Marriage Therapist: [place] [address] [phone] Hba1c 7.4 % High <5.7 5 Est Avg Glucose 166 mg/dL High 60 - 110 Basic Metabolic Panel 11/26/2020 [facility] Marriage Therapist: [place] [address] [phone] Glucose 255 mg/dL High 74 - 99 [...] LITTLE GFR LEFT ESRD GFR <15 ON POLICE JUDGE 5 Lab Result Notes: Pre-Diabetes 5.7 - [...] LITTLE GFR LEFT ESRD GFR <15 ON POLICE JUDGE Procedures Date Code Description Status 05/13/2021 317126313 Diabetic Retinal Eye Exam Comple yadiel 04/02/2021 61276 Chronic Care Management Services Ea Addl 20 Min Completed 04/02/2021 27741 Chronic Care MGMT 20 Mins Clinical Staff Time Per Calendar Month Completed 02/26/2021 92863 Chronic Care MGMT 20 Mins Clinical Staff Time Per Calendar Month Completed 02/26/2021 71530 Chronic Care Management Services Ea Addl 20 Min Completed 02/09/2021 38243 Complex Chronic Care MGMT Servic e Ea Addl 30 Min Completed 02/09/2021 92265 Complex Chronic Care Management SVC 1St 60 Min Completed 01/04/2021 46133 Chronic Care MGMT 20 Mins Clinical Staff Time Per Calendar Month Completed 11/26/2020 34430 Office/Outpatient Established Mo d MDM 30-39 Min Completed 11/25/2020 15261 Chronic Care MGMT 20 Mins Clinical Staff Time Per Calendar Month Completed 11/25/2020 79105 Chronic Care Management Services Ea Addl 20 Min Completed 04/23/2020 20843081 Mammogram Completed 06/27/2019 672995900 Diabetic Retinal Eye Exam Comple yadiel 04/19/2019 69775998 Mammogram Completed 04/19/2019 077781671 Bone Mineral Density Test Comple yadiel 02/20/2018 19122164 Mammogram Completed 06/08/2017 977224124 Diabetic Retinal Eye Exam Comple yadiel 12/15/2016 282793069 Diabetic Retinal Eye Exam Comple yadiel 12/24/2015 393732346 Diabetic Retinal Eye Exam Comple yadiel 07/13/2015 127723841 Diabetic Retinal Eye Exam Comple yadiel 12/04/2014 93547622 Colonoscopy Completed 10/30/2014 132817837 Diabetic Retinal Eye Exam Comple yadiel 03/17/2014 608739734 Diabetic Retinal Eye Exam Comple yadiel 01/20/2014 030935981 Diabetic Retinal Eye Exam Comple yadiel 09/20/2013 833827200 Diabetic Retinal Eye Exam Comple yadiel 04/30/2013 70738889 Mammogram Completed 01/18/2013 633587839 Diabetic Retinal Eye Exam Comple [facility] Medical Devices Description No Information Available Encounters Type Date Location Provider Dx Diagnosis Office Visit 11/26/2020 2:00p [facility] 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 of a nticoagulants I10 Essential (primary) hyperten frieda G89.29 Other chronic pain E11.42 Type 2 diabetes mellitus wit h diabetic polyneuropathy Z79.4 intermediate project manager (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 of i nsulin Z89.411 Acquired absence of right gr eat toe Assessments Date Code Description Provider 05/19/2021 Z12.31 Encounter for screen ing mammogram for malignant neoplasm of breast Stephanie Murhpy DO 05/19/2021 E11.42 Type 2 diabetes mellitus with di abetic polyneuropathy Stephanie Murphy,DO 05/19/2021 D50.9 Iron deficiency anemia, unspecif ied Stephanie Murphy,DO 05/19/2021 Z79.01 [facility] (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 Stephanie Murphy,DO 05/19/2021 Z86.711 Personal history of pulmonary em bolism Stephanie Murphy,DO 05/19/2021 G89.29 Other chronic pain Stephanie Murphy,D O 05/19/2021 Z79.4 intermediate project manager (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 of insul in Stephanie Murphy,DO 05/19/2021 Z89.411 Acquired absence of right great toe Stephanie Murphy,DO 05/19/2021 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 Stephanie Murphy,DO 05/19/2021 Z86.010 Personal history of colonic poly ps Stephanie Murphy,DO 04/02/2021 E11.42 Type 2 diabetes mellitus with di abetic polyneuropathy Stephanie Ramirezgs,DO 04/02/2021 K21.9 Gastro-esophageal reflux disease without esophagitis Stephanie Jeffrey,DO 04/02/2021 I26.99 Other pulmonary embolism without acute cor pulmonale Stephanie Murphy,DO 02/26/2021 E11.42 Type 2 diabetes mellitus with di abetic polyneuropathy Stephanie Ramirezgs,DO 02/26/2021 K21.9 Gastro-esophageal reflux disease without esophagitis Stephanie Jeffrey,DO 02/26/2021 I26.99 Other pulmonary embolism without acute cor pulmonale Stephanie Murphy,DO 02/09/2021 I26.99 Other pulmonary embolism without acute cor pulmonale Stephaniesanna Murphy,DO 02/09/2021 E11.42 Type 2 diabetes mellitus with di abetic polyneuropathy Stephanie Murphy,DO 02/09/2021 K21.9 Gastro-esophageal reflux disease without esophagitis [facility],DO 01/04/2021 E11.42 Type 2 diabetes mellitus with di abetic polyneuropathy Stephanie Murphy,DO 01/04/2021 K21.9 Gastro-esophageal reflux disease without esophagitis Stephanie Ramirezgs,DO 12/01/2020 Z51.81 Encounter for therapeutic drug l evel franky Powers, SSAS DEVELOPER 12/01/2020 Z51.81 Encounter for therapeutic drug l evel monitoring Protime 12/01/2020 Z79.01 intermediate project manager (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 Anjelica Powers, SSAS DEVELOPER 12/01/2020 Z79.01 [facility] (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 Protime 12/01/2020 Z86.711 Personal history of pulmonary em bolism Anjelica Powers, SSAS DEVELOPER 12/01/2020 Z86.711 Personal history of pulmonary em bolism Protime 11/26/2020 Z51.81 Encounter for therapeutic drug l evel monitoring Anjelica Powers, SSAS DEVELOPER 11/26/2020 D50.9 Iron deficiency anemia, unspecif ied Stephanie Murphy,DO 11/26/2020 Z86.711 Personal history of pulmonary em bolism Stephanie Murphy,DO 11/26/2020 Z51.81 Encounter for therapeutic drug l evel monitoring Protime 11/26/2020 Z79.01 intermediate project manager (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 Stephanie Murphy,DO 11/26/2020 I10 Essential (primary) hypertension Stephanie Murphy,DO 11/26/2020 Z86.711 Personal history of pulmonary em bolism Anjelica Powers, SSAS DEVELOPER 11/26/2020 G89.29 Other chronic pain Stephanie Murphy,D O 11/26/2020 E11.42 Type 2 diabetes mellitus with di abetic polyneuropathy Stephanie Murphy,DO 11/26/2020 Z86.711 Personal history of pulmonary em bolism Protime 11/26/2020 Z79.4 intermediate project manager (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 of insul in Stephanie Murphy,DO 11/26/2020 Z89.411 Acquired absence of right great toe Stephanie Murphy,DO 11/26/2020 Z79.01 [facility] (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 Anjelica Powers, SSAS DEVELOPER 11/26/2020 Z79.01 intermediate project manager (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 Protime 11/25/2020 I10 Essential (primary) hypertension Stephanie Murhpy,DO 11/25/2020 G89.29 Other chronic pain Stephanie Jeffrey,D O 11/25/2020 E11.42 Type 2 diabetes mellitus with di abetic polyneuropathy Stephanie Murphy DO 11/25/2020 K21.9 Gastro-esophageal reflux disease without esophagitis Stephanie Murphy DO Plan of Treatment Future Appointment(s):* 10/26/2021 10:40 am - Stephanie Murphy DO at [facility] 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
--- OUTSIDE RECORDS SUMMARY | 2021-06-02 16:53 | CCD | Continuity of Care Document ---
Author Author Leatha MURPHY Organization Unknown Address [address] [facility] [address] [place] [address] Phone [phone] Care Team Providers Care Roller Shop Utility Worker Name Role Phone Russel Yoder MD AUTM [phone] Stephanie Murphy DO AUTM Unavailable Tiana Power MD AUTM [phone] Serg Ledbetter MD AUTM [phone] Umesh Queen III, MD AUTM Unavailable Roseline Ponce AUTM [phone] Pepe Griffiths MD AUTM [phone] Irene Woods MD AUTM [phone] [facility] AUTM [phone] Problems Active Problems Provider Date Disorder of [...] Tablet By Mouth AT Bedtime 90tabs Stephanie Mruphy,DO 09/26/2019 Senna-S 8.6-50mg Tablets Take 1 tablet [...] and as directed e11.9 1units Andrés Alexander, [facility] 01/13 Onetouch Ultra Strips Use 1 Strip [...] ulcer every other day. 10units Anjelica Powers, SENIOR DATA MODELER 03/29/2016 Pantoprazole Sodium 40mg Tablets D R [...] CPT Code Status Date Vaccine Lot # 89489 Given 07/04/2017 Pneumovax 23 [id number] Refused 05/21/2019 Influenza Vaccin e Quadrivalent Preser/Antibiotic Free Im Use 39231 Refused 05/24/2018 Influenza Virus Vaccine, Quadrivalent (Cciiv4), Derived From Cell 31281 Refused 07/04/2017 Influenza Vaccin e Quadrivalent Preser/Antibiotic [...] H/L Range Note Laboratory test finding 05/19/2021 [place] [address] [phone] Hepatitis C Antibody <pending> Ferritin <pending> Laboratory test finding 05/19/2021 [facility] Plating Equipment Tender: [place] [address] [phone] A1c <pending> Laboratory test finding 12/01/2020 Wi-In[facility] Inr 1.2 Laboratory test finding 11/26/2020 [facility] 2.6 Total Iron Binding Capacit 11/26/2020 [place] [address] [phone] Iron (Fe) 64 g/dL Normal 50-170 Total Iron Binding Capacity 350 g/dL Normal 250-450 Percent Saturation 18.3 % Normal 13.2-45.0 Laboratory test finding 11/26/2020 [place] [address] [phone] Ferritin 52 NG/ML Normal 8-252 Complete Blood Count 11/26/2020 [facility] Plating Equipment Tender: [place] [address] [phone] WBC 6.7 x10*3/UL 4.1 - 10.9 RBC [...] 5.6 x10*3/UL 2.0 - 7.8 A1c 11/26/2020 [facility] Plating Equipment Tender: [place] [address] [phone] Hba1c 7.4 % High <5.7 1 Est Avg Glucose 166 mg/dL High 60 - 110 Basic Metabolic Panel 11/26/2020 [facility] Plating Equipment Tender: [place] [address] [phone] Glucose 255 mg/dL High 74 - 99 [...] LITTLE GFR LEFT ESRD GFR <15 ON AIRPLANE RIGGER Procedures Date Code Description Status 04/02/2021 19250 Chronic Care Management Services Ea Addl 20 Min Completed 04/02/2021 72189 Chronic Care MGMT 20 Mins Clinical Staff Time Per Calendar Month Completed 02/26/2021 97423 Chronic Care MGMT 20 Mins Clinical Staff Time Per Calendar Month Completed 02/26/2021 77246 Chronic Care Management Services Ea Addl 20 Min Completed 02/09/2021 94509 Complex Chronic Care MGMT Servic e Ea Addl 30 Min Completed 02/09/2021 90352 Complex Chronic Care Management SVC 1St 60 Min Completed 01/04/2021 25147 Chronic Care MGMT 20 Mins Clinical Staff Time Per Calendar Month Completed 11/26/2020 46058 Office/Outpatient Established Mo d MDM 30-39 Min Completed 11/25/2020 89036 Chronic Care MGMT 20 Mins Clinical Staff Time Per Calendar Month Completed 11/25/2020 14143 Chronic Care Management Services Ea Addl 20 Min Completed 04/23/2020 [id number] Mammogram Completed 06/27/2019 283912739 Diabetic Retinal Eye Exam [facility] 04/19/2019 68938889 Mammogram Completed 04/19/2019 040204614 Bone Mineral Density Test [facility] 02/20/2018 [id number] Mammogram Completed 06/08/2017 246063757 Diabetic Retinal Eye Exam [facility] 12/15/2016 956658648 Diabetic Retinal Eye Exam [facility] 12/24/2015 140592334 Diabetic Retinal Eye Exam [facility] 07/13/2015 021981045 Diabetic Retinal Eye Exam [facility] 12/04/2014 05831990 Colonoscopy Completed 10/30/2014 753194300 Diabetic Retinal Eye Exam [facility] 03/17/2014 274776312 Diabetic Retinal Eye Exam [facility] 01/20/2014 098461383 Diabetic Retinal Eye Exam [facility] 09/20/2013 492367966 Diabetic Retinal Eye Exam [facility] 04/30/2013 09599629 Mammogram Completed 01/18/2013 524035571 Diabetic Retinal Eye Exam [facility] Medical Devices Description No Information Available Encounters Type Date Location Provider Dx Diagnosis Office Visit 11/26/2020 2:00p [facility] 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 Z89.411 Acquired absence of right gr eat toe Assessments Date Code Description Provider 05/19/2021 Z12.31 Encounter for screen ing mammogram for malignant neoplasm of breast Stephanie Jeffrey,DO 05/19/2021 E11.42 Type 2 diabetes mellitus with di abetic polyneuropathy Stephanie Jeffrey,DO 05/19/2021 D50.9 Iron deficiency anemia, unspecif ied Stephanie Murphy,DO 05/19/2021 Z79.01 correction (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 Stephanie Ramirezgs,DO 05/19/2021 Z86.711 Personal history of pulmonary em bolism Stephanie Murphy,DO 05/19/2021 G89.29 Other chronic pain Stephanie Murphy,D O 05/19/2021 Z79.4 correction (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 of insul in Stephanie Murphy,DO 05/19/2021 Z89.411 Acquired absence of right great toe Stephanie Murphy,DO 05/19/2021 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 Stpehanie Murphy,DO 05/19/2021 Z86.010 Personal history of colonic [...] therapeutic drug l evel monitoring Anjelica Powers, [facility] 12/01/2020 Z51.81 Encounter for therapeutic drug l evel monitoring Protime 12/01/2020 Z79.01 correction (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 Anjelica Powers, [facility] 12/01/2020 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.01 petroleum 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 (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 Protime 12/01/2020 Z86.711 Personal history of pulmonary em bolism Anjelica Powers, [facility] 12/01/2020 Z86.711 Personal history of pulmonary em bolism Protime 11/26/2020 Z51.81 Encounter for therapeutic drug l evel monitoring Anjelica Powers, [facility] 11/26/2020 D50.9 Iron deficiency anemia, unspecif ied Stephanie Jeffrey,DO 11/26/2020 Z86.711 Personal history of pulmonary em bolism Stephanie Jeffrey,DO 11/26/2020 Z51.81 Encounter for therapeutic drug l evel monitoring Protime 11/26/2020 Z79.01 correction (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 Stephanie Ramirezgs,DO 11/26/2020 I10 Essential (primary) hypertension Stephanie Murphy,DO 11/26/2020 Z86.711 Personal history of pulmonary em bolism Anjelica Powers, [facility] 11/26/2020 G89.29 Other chronic pain Stephanie Murphy,D O 11/26/2020 E11.42 Type 2 diabetes mellitus with di abetic polyneuropathy Stephanie Murphy,DO 11/26/2020 Z86.711 Personal history of pulmonary em bolism Protime 11/26/2020 Z79.4 petroleum 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 (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 of insul in Stephanie RamirezDO kathleen 11/26/2020 Z89.411 Acquired absence of right great toe Stephanie DO Jeffrey 11/26/2020 Z79.01 correction (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 Anjelica Cynthia Coleman, SENIOR DATA MODELER 11/26/2020 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
--- OUTSIDE RECORDS SUMMARY | 2021-06-02 16:53 | CCD | Continuity of Care Document ---
Author Author Leahta MURPHY Organization Unknown Address [address] [facility] [address] [place] [address] Phone [phone] Care Team Providers Care Chairman & Ceo Name Role Phone Russel Yoder MD AUTM [phone] Stephanie Murphy DO AUTM Unavailable Tiana Power MD AUTM [phone] Serg Ledbetter MD AUTM [phone] Umesh Queen III, MD AUTM Unavailable Roseline Ponce AUTM [phone] Pepe Griffiths MD AUTM [phone] Irene Woods MD AUTM [phone] [facility] Radiology AUTM [phone] Problems Active Problems Provider Date Disorder of [...] 1 tablet by mouth twice daily 60tabs Stehpanie Murphy,DO 11/26/2020 BD Pen Needle/Mahsa 2ND Gen/32G [...] and as directed e11.9 1units Andrés Alexander, [facility] 01/13 Onetouch Ultra Strips Use 1 [...] ulcer every other day. 10units Anjelica Powers, VICE CHAIR 03/29/2016 Pantoprazole Sodium 40mg Tablets D R [...] CPT Code Status Date Vaccine Lot # [id number] Given 07/04/2017 Pneumovax 23 [id number] Refused 05/21/2019 Influenza Vaccin e Quadrivalent Preser/Antibiotic Free [place] Use 80712 Refused 05/24/2018 Influenza Virus Vaccine, Quadrivalent (Cciiv4), Derived From Cell 00702 Refused 07/04/2017 Influenza Vaccin e Quadrivalent Preser/Antibiotic [...] H/L Range Note Laboratory test finding 05/19/2021 [place] [address] [phone] Hepatitis C Antibody <pending> Ferritin <pending> Laboratory test finding 05/19/2021 [facility] [employer] Hand: [place] [address] [phone] A1c <pending> Laboratory test finding 12/01/2020 Wi-Inr Inr 1.2 Laboratory test finding 11/26/2020 Wi-Inr Inr 2.6 Total Iron Binding Capacit 11/26/2020 [place] [address] [phone] Iron (Fe) 64 g/dL Normal 50-170 Total Iron Binding Capacity 350 g/dL Normal 250-450 Percent Saturation 18.3 % Normal 13.2-45.0 Laboratory test finding 11/26/2020 [place] [address] [phone] Ferritin 52 NG/ML Normal 8-252 Complete Blood Count 11/26/2020 [facility] [employer] Hand: [place] [address] [phone] WBC 6.7 x10*3/UL 4.1 - 10.9 RBC [...] 5.6 x10*3/UL 2.0 - 7.8 A1c 11/26/2020 [facility] [employer] Hand: [place] [address] [phone] Hba1c 7.4 % High <5.7 1 Est Avg Glucose 166 mg/dL High 60 - 110 Basic Metabolic Panel 11/26/2020 [facility] [employer] Hand: [place] [address] [phone] Glucose 255 mg/dL High 74 - 99 [...] LITTLE GFR LEFT ESRD GFR <15 ON UNIT SUPERVISOR Procedures Date Code Description Status 04/02/2021 66441 Chronic Care Management Services Ea Addl 20 Min Completed 04/02/2021 65283 Chronic Care MGMT 20 Mins Clinical Staff Time Per Calendar Month Completed 02/26/2021 07640 Chronic Care MGMT 20 Mins Clinical Staff Time Per Calendar Month Completed 02/26/2021 59027 Chronic Care Management Services Ea Addl 20 Min Completed 02/09/2021 01945 Complex Chronic Care MGMT Servic e Ea Addl 30 Min Completed 02/09/2021 44283 Complex Chronic Care Management SVC 1St 60 Min Completed 01/04/2021 84315 Chronic Care MGMT 20 Mins Clinical Staff Time Per Calendar Month Completed 11/26/2020 28397 Office/Outpatient Established Mo d MDM 30-39 Min Completed 11/25/2020 99500 Chronic Care MGMT 20 Mins Clinical Staff Time Per Calendar Month Completed 11/25/2020 96136 Chronic Care Management Services Ea Addl 20 Min Completed 04/23/2020 [id number] Mammogram Completed 06/27/2019 [id number] Diabetic Retinal Eye Exam Comple [facility] 04/19/2019 79233091 Mammogram Completed 04/19/2019 831041579 Bone Mineral Density Test Comple [facility] 02/20/2018 14292181 Mammogram Completed 06/08/2017 408635681 Diabetic Retinal Eye Exam [facility]ple [facility] 12/15/2016 430598360 Diabetic Retinal Eye Exam Comple [facility] 12/24/2015 057279653 Diabetic Retinal Eye Exam Comple [facility] 07/13/2015 744593796 Diabetic Retinal Eye Exam Comple [facility] 12/04/2014 97376006 Colonoscopy Completed 10/30/2014 483284061 Diabetic Retinal Eye Exam [facility]ple [facility] 03/17/2014 980521933 Diabetic Retinal Eye Exam [facility]ple [facility] 01/20/2014 978323598 Diabetic Retinal Eye Exam [facility]ple [facility] 09/20/2013 526950301 Diabetic Retinal Eye Exam [facility] 04/30/2013 58752480 Mammogram Completed 01/18/2013 [id number] Diabetic Retinal Eye Exam [facility] Medical Devices Description No Information Available Encounters Type Date Location Provider Dx Diagnosis Office Visit 11/26/2020 2:00p [facility] 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 Z89.411 Acquired absence of right gr eat toe Assessments Date Code Description Provider 05/19/2021 Z12.31 Encounter for screen ing mammogram for malignant neoplasm of breast Stephanie Jeffrey,DO 05/19/2021 E11.42 Type 2 diabetes mellitus with di abetic polyneuropathy Stephanie Jeffrey,DO 05/19/2021 D50.9 Iron deficiency anemia, unspecif ied Stephanie Murphy,DO 05/19/2021 Z79.01 retirement (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 Stephanie Ramirezgs,DO 05/19/2021 Z86.711 Personal history of pulmonary em bolism Stephanie Murphy,DO 05/19/2021 G89.29 Other chronic pain Stephanie Murphy,D O 05/19/2021 Z79.4 retirement (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 of insul in Stephanie Murphy,DO [...] therapeutic drug l evel monitoring Anjelica Powers, [facility] 12/01/2020 Z51.81 Encounter for therapeutic drug l evel monitoring Protime 12/01/2020 Z79.01 retirement (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 Anjelica Powers, [facility] 12/01/2020 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.01 terminal supervisor (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 Protime 12/01/2020 Z86.711 Personal history of pulmonary em bolism Anjelica Powers, [facility] 12/01/2020 Z86.711 Personal history of pulmonary em bolism Protime 11/26/2020 Z51.81 Encounter for therapeutic drug l evel monitoring Anjelica Powers, [facility] 11/26/2020 D50.9 Iron deficiency anemia, unspecif ied Stephanie Jeffrey,DO 11/26/2020 Z86.711 Personal history of pulmonary em bolism Stephanie Jeffrey,DO 11/26/2020 Z51.81 Encounter for therapeutic drug l evel monitoring Protime 11/26/2020 Z79.01 retirement (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 Stephanie Ramirezgs,DO 11/26/2020 I10 Essential (primary) hypertension Stephanie Murphy,DO 11/26/2020 Z86.711 Personal history of pulmonary em bolism Anjelica Powers, [facility] 11/26/2020 G89.29 Other chronic pain Stephanie Murphy,D O 11/26/2020 E11.42 Type 2 diabetes mellitus with di abetic polyneuropathy Stephanie Murphy,DO 11/26/2020 Z86.711 Personal history of pulmonary em bolism Protime 11/26/2020 Z79.4 terminal supervisor (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 of insul in Stephanie RamirezDO kathleen 11/26/2020 Z89.411 Acquired absence of right great toe Stephanie DO Jeffrey 11/26/2020 Z79.01 retirement (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 Anjelica Cynthia Coleman, VICE CHAIR 11/26/2020 Z79.01 terminal supervisor (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 Protime 11/25/2020 I10 Essential (primary) hypertension Stephanie Murphy DO 11/25/2020 G89.29 Other chronic pain Darius Miller O 11/25/2020 E11.42 Type 2 diabetes mellitus with di abetic polyneuropathy Stephanie Murphy DO 11/25/2020 K21.9 Gastro-esophageal reflux disease without esophagitis Stephanie Murphy DO Plan of Treatment Future Appointment(s):* 10/26/2021 10:40 am - Stephanie uMrphy DO at [facility] 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
--- OUTSIDE RECORDS SUMMARY | 2021-06-02 16:53 | CCD | Continuity of Care Document ---
Author Author Leatha MURPHY Organization Unknown Address [address] [facility] [address] [place] [address] Phone [phone] Care Team Providers Care Brattice Builder Name Role Phone Russel Yoder MD AUTM [phone] Stephanie Murphy DO AUTM Unavailable Tiana Power MD AUTM [phone] Serg Ledbetter MD AUTM [phone] Umesh Queen III, MD AUTM Unavailable Roseline Ponce AUTM [phone] Pepe Griffiths MD AUTM [phone] Irene Woods MD AUTM [phone] [facility] Radiology AUTM [phone] Problems Active Problems Provider Date Disorder of [...] and as directed e11.9 1units Andrés Alexander, [facility] 01/13 Onetouch Ultra Strips Use 1 [...] ulcer every other day. 10units Anjelica Powers, RN BABY 03/29/2016 Pantoprazole Sodium 40mg Tablets D R [...] CPT Code Status Date Vaccine Lot # 43836 Given 07/04/2017 Pneumovax 23 [id number] Refused 05/21/2019 Influenza Vaccin e Quadrivalent Preser/Antibiotic Free Im Use 24095 Refused 05/24/2018 Influenza Virus Vaccine, Quadrivalent (Cciiv4), Derived From Cell 44374 Refused 07/04/2017 Influenza Vaccin e Quadrivalent Preser/Antibiotic [...] Range Note Total Iron Binding Capacit 05/19/[address] [address] [phone] Iron (Fe) 66 g/dL Normal 50-170 Total Iron Binding Capacity 354 g/dL Normal 250-450 Percent Saturation 18.6 % Normal 13.2-45.0 Laboratory test finding 05/19/[address] [address] [phone] Hepatitis C Virus Keysha Index 0.1 INDEX Normal <0.8 1 Ferritin 58 NG/ML Normal 8-252 Complete Blood Count 05/19/2021 [facility] Lead Person: [place] [address] [phone] WBC 7.4 x10*3/UL 4.1 - 10.9 RBC [...] 6.0 x10*3/UL 2.0 - 7.8 A1c 05/19/2021 [facility] , Lead Person: [place] [address] [phone] Hba1c 7.0 % High <5.7 2 Est Avg Glucose 154 mg/dL High 60 - 110 Comprehensive Chem Profile 05/19/2021 [facility], Lead Person: [place] [address] [phone] Glucose 93 mg/dL 74 - 99 3 [...] mL/min Low >60 5 Lipid Profile 05/19/2021 [facility] , Lead Person: [place] [address] [phone] Cholesterol 117 mg/dL Low 131 - 200 Triglycerides 88 mg/dL 30 - 150 HDL Cholesterol 50 mg/dL 35 - 60 LDL (Calculated) 49 CALC Low 50 - 159 Microalbumin/Creatinine Urine 05/19/2021 [facility] Lead Person: [place] [address] [phone] Microalbumin Urine 6.1 mg/L 1.3 - 20.0 Urine Creatinine 20.3 mg/dL Low 30.0 - 125.0 Microalb/Creat Ratio 30.0 ug/mg High 0.0 - 30.0 Laboratory test finding 12/01/2020 Wi-Inr Inr 1.2 Laboratory test finding 11/26/2020 Wi-Inr Inr 2.6 Total Iron Binding Capacit 11/26/[address] [address] [phone] Iron (Fe) 64 g/dL Normal 50-170 Total Iron Binding Capacity 350 g/dL Normal 250-450 Percent Saturation 18.3 % Normal 13.2-45.0 Laboratory test finding 11/26/[address] [address] [phone] Ferritin 52 NG/ML Normal 8-252 Complete Blood Count 11/26/2020 [facility] Lead Person: [place] [address] [phone] WBC 6.7 x10*3/UL 4.1 - 10.9 RBC [...] 5.6 x10*3/UL 2.0 - 7.8 A1c 11/26/2020 [facility] Lead Person: Dr Venu Olea [place], [place] [address] [phone] Hba1c 7.4 % High <5.7 6 Est Avg Glucose 166 mg/dL High 60 - 110 Basic Metabolic Panel 11/26/2020 [facility] Lead Person: Dr Venu Olea [place], [place] [address] [phone] Glucose 255 mg/dL High 74 - 99 [...] LITTLE GFR LEFT ESRD GFR <15 ON PRESS LEADER 6 Lab Result Notes: Pre-Diabetes 5.7 - [...] LITTLE GFR LEFT ESRD GFR <15 ON PRESS LEADER Procedures Date Code Description Status 05/13/2021 [id number] Diabetic Retinal Eye Exam [facility] 04/02/2021 77495 Chronic Care Management Services Ea Addl 20 Min Completed 04/02/2021 98776 Chronic Care MGMT 20 Mins Clinical Staff Time Per Calendar Month Completed 02/26/2021 12944 Chronic Care MGMT 20 Mins Clinical Staff Time Per Calendar Month Completed 02/26/2021 20663 Chronic Care Management Services Ea Addl 20 Min Completed 02/09/2021 93910 Complex Chronic Care MGMT Servic e Ea Addl 30 Min Completed 02/09/2021 92410 Complex Chronic Care Management SVC 1St 60 Min Completed 01/04/2021 90805 Chronic Care MGMT 20 Mins Clinical Staff Time Per Calendar Month Completed 11/26/2020 28092 Office/Outpatient Established Mo d MDM 30-39 Min Completed 11/25/2020 36484 Chronic Care MGMT 20 Mins Clinical Staff Time Per Calendar Month Completed 11/25/2020 79945 Chronic Care Management Services Ea Addl 20 Min Completed 04/23/2020 86541586 Mammogram Completed 06/27/2019 384328470 Diabetic Retinal Eye Exam [facility] 04/19/2019 73553067 Mammogram Completed 04/19/2019 016525412 Bone Mineral Density Test Comple [facility] 02/20/2018 32344791 Mammogram Completed 06/08/2017 843457661 Diabetic Retinal Eye Exam [facility]ple [facility] 12/15/2016 607128912 Diabetic Retinal Eye Exam [facility] 12/24/2015 657127573 Diabetic Retinal Eye Exam Comple [facility] 07/13/2015 510329246 Diabetic Retinal Eye Exam [facility] 12/04/2014 64439050 Colonoscopy Completed 10/30/2014 597371410 Diabetic Retinal Eye Exam [facility]ple [facility] 03/17/2014 632441145 Diabetic Retinal Eye Exam [facility] 01/20/2014 947460089 Diabetic Retinal Eye Exam [facility] 09/20/2013 750501075 Diabetic Retinal Eye Exam [facility] 04/30/2013 07289371 Mammogram Completed 01/18/2013 362869316 Diabetic Retinal Eye Exam [facility] Medical Devices Description No Information Available Encounters Type Date Location Provider Dx Diagnosis Office Visit 11/26/2020 2:00p [facility] 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 I10 Essential (primary) hyperten frieda G89.29 Other chronic pain E11.42 Type 2 diabetes mellitus wit h diabetic polyneuropathy Z79.4 long-term (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 of i nsulin Z89.411 Acquired absence of right gr eat toe Assessments Date Code Description Provider 05/19/2021 Z12.31 Encounter for screen ing mammogram for malignant neoplasm of breast Stephanie Murphy,DO 05/19/2021 E11.42 Type 2 diabetes mellitus with di abetic polyneuropathy Stephanie Murphy,DO 05/19/2021 D50.9 Iron deficiency anemia, unspecif ied Stephanie Murphy,DO 05/19/2021 Z79.01 computer terminal operator (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 Stephanie Murphy,DO 05/19/2021 Z86.711 Personal history of pulmonary em bolism Stephanie Murphy,DO 05/19/2021 G89.29 Other chronic pain Stephanie Murphy,D O 05/19/2021 Z79.4 computer terminal operator (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 of insul in Stephanie Murphy,DO [...] Gastro-esophageal reflux disease without esophagitis Stephanie Murphy,DO 01/04/2021 E11.42 Type 2 diabetes mellitus with di abetic polyneuropathy Stephanie Murphy,DO 01/04/2021 K21.9 Gastro-esophageal reflux disease without esophagitis Stephanie Murphy,DO 12/01/2020 Z51.81 Encounter for therapeutic drug l evel monitoring Anjelica Powers, RN BABY 12/01/2020 Z51.81 Encounter for therapeutic drug l evel monitoring Protime 12/01/2020 Z79.01 long-term (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 Anjelica Powers, [facility] 12/01/2020 Z79.01 long-term (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 Protime 12/01/2020 Z86.711 Personal history of pulmonary em bolism Anjelica Powers, [facility] 12/01/2020 Z86.711 Personal history of pulmonary em bolism Protime 11/26/2020 Z51.81 Encounter for therapeutic drug l evel monitoring Anjelica Powers, [facility] 11/26/2020 D50.9 Iron deficiency anemia, unspecif ied Stephanie Murphy,DO 11/26/2020 Z86.711 Personal history of pulmonary em bolism Stephanie Murphy,DO 11/26/2020 Z51.81 Encounter for therapeutic drug l evel monitoring Protime 11/26/2020 Z79.01 computer terminal operator (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 Stephanie Murphy,DO 11/26/2020 I10 Essential (primary) hypertension Stephanie Murphy,DO 11/26/2020 Z86.711 Personal history of pulmonary em bolism Anjelica Powers, [facility] 11/26/2020 G89.29 Other chronic pain Stephanie MurphyD O 11/26/2020 E11.42 Type 2 diabetes mellitus with di abetic polyneuropathy Stephanie Murphy,DO 11/26/2020 Z86.711 Personal history of pulmonary em bolism Protime 11/26/2020 Z79.4 computer terminal operator (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 of insul in Stephanie Murphy,DO 11/26/2020 Z89.411 Acquired absence of right great toe Stephanie Murphy DO 11/26/2020 Z79.01 long-term (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 Anjelica Pwoers, RN BABY 11/26/2020 Z79.01 computer terminal operator (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 Protime 11/25/2020 I10 Essential (primary) hypertension Stephanie Murphy DO 11/25/2020 G89.29 Other chronic pain Darius Miller O 11/25/2020 E11.42 Type 2 diabetes mellitus with di abetic polyneuropathy Stephanie Murphy DO 11/25/2020 K21.9 Gastro-esophageal reflux disease without esophagitis Stephanie Murphy DO Plan of Treatment Future Appointment(s):* 10/26/2021 10:40 am - Stephanie Murphy DO at [facility] 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
--- OUTSIDE RECORDS SUMMARY | 2021-06-02 16:53 | CCD | Continuity of Care Document ---
Author Author Leatha MURPHY Organization Unknown Address [address] [facility] [address] [place] [address] Phone [phone] Care Team Providers Care Partition Making Machine Operator Name Role Phone Russel Yoder MD AUTM [phone] Stephanie Murphy DO AUTM Unavailable Tiana Power MD AUTM [phone] Serg Ledbetter MD AUTM [phone] Umesh Queen III, MD AUTM Unavailable Roseline Ponce AUTM [phone] Pepe Griffiths MD AUTM [phone] Irene Woods MD AUTM [phone] [facility] Radiology AUTM [phone] Problems Active Problems Provider Date Disorder of [...] tablet by mouth once daily 90tabs Stephanie Muprhy,DO 07/30/2019 Ferrous Gluconate 324(38Fe) mg Tab lets [...] and as directed e11.9 1units Andrés Alexander, [facility] 01/13 Onetouch Ultra Strips Use 1 [...] ulcer every other day. 10units Anjelica Powers, [employer]INGLE CAR[employer]ER 03/29/2016 Pantoprazole Sodium 40mg Tablets D R [...] CPT Code Status Date Vaccine Lot # [id number] Given 07/04/2017 Pneumovax 23 [id number] Refused 05/21/2019 Influenza Vaccin e Quadrivalent Preser/Antibiotic Free Im Use 10868 Refused 05/24/2018 Influenza Virus Vaccine, Quadrivalent ([id number]), Derived From Cell [id number] Refused 07/04/2017 Influenza Vaccin e Quadrivalent Preser/Antibiotic [...] H/L Range Note Laboratory test finding 05/19/2021 [facility] [address] [place], [place] [address] [phone] Hepatitis C Antibody <pending> Ferritin <pending> Complete Blood Count 05/19/2021 [facility] Internal Consultant: [place] [address] [phone] WBC 7.4 x10*3/UL 4.1 - 10.9 RBC [...] 6.0 x10*3/UL 2.0 - 7.8 A1c 05/19/2021 [facility] , Internal Consultant: Dr Venu [address] [place], [place] [address] [phone] Hba1c 7.0 % High <5.7 1 Est Avg Glucose 154 mg/dL High 60 - 110 Comprehensive Chem Profile 05/19/2021 [facility], Internal Consultant: [place] [address] [phone] Glucose 93 mg/dL 74 - 99 2 [...] mL/min Low >60 4 Lipid Profile 05/19/2021 [facility] , Internal Consultant: [place] [address] [phone] Cholesterol 117 mg/dL Low 131 - 200 Triglycerides 88 mg/dL 30 - 150 HDL Cholesterol 50 mg/dL 35 - 60 LDL (Calculated) 49 CALC Low 50 - 159 Microalbumin/Creatinine Urine 05/19/2021 [facility], Internal Consultant: [place] [address] [phone] Microalbumin Urine 6.1 mg/L 1.3 - 20.0 Urine Creatinine 20.3 mg/dL Low 30.0 - 125.0 Microalb/Creat Ratio 30.0 ug/mg High 0.0 - 30.0 Laboratory test finding 12/01/2020 [facility] 1.2 Laboratory test finding 11/26/2020 [facility] 2.6 Total Iron Binding Capacit 11/26/2020 [facility] [address] [place] [address] [phone] Iron (Fe) 64 g/dL Normal 50-170 Total Iron Binding Capacity 350 g/dL Normal 250-450 Percent Saturation 18.3 % Normal 13.2-45.0 Laboratory test finding 11/26/2020 [facility] [address] [place] [address] [phone] Ferritin 52 NG/ML Normal 8-252 Complete Blood Count 11/26/2020 [facility] Internal Consultant: [place] [address] [phone] WBC 6.7 x10*3/UL 4.1 - 10.9 RBC [...] 5.6 x10*3/UL 2.0 - 7.8 A1c 11/26/2020 [facility] Internal Consultant: [place] [address] [phone] Hba1c 7.4 % High <5.7 5 Est Avg Glucose 166 mg/dL High 60 - 110 Basic Metabolic Panel 11/26/2020 [facility] Internal Consultant: [place] [address] [phone] Glucose 255 mg/dL High 74 - 99 [...] LITTLE GFR LEFT ESRD GFR <15 ON CABLE SPLICER HELPER 5 Lab Result Notes: Pre-Diabetes 5.7 - [...] LITTLE GFR LEFT ESRD GFR <15 ON CABLE SPLICER HELPER Procedures Date Code Description Status 04/02/2021 70512 Chronic Care Management Services Ea Addl 20 Min Completed 04/02/2021 32788 Chronic Care MGMT 20 Mins Clinical Staff Time Per Calendar Month Completed 02/26/2021 96094 Chronic Care MGMT 20 Mins Clinical Staff Time Per Calendar Month Completed 02/26/2021 89765 Chronic Care Management Services Ea Addl 20 Min Completed 02/09/2021 22802 Complex Chronic Care MGMT Servic e Ea Addl 30 Min Completed 02/09/2021 65420 Complex Chronic Care Management SVC 1St 60 Min Completed 01/04/2021 66993 Chronic Care MGMT 20 Mins Clinical Staff Time Per Calendar Month Completed 11/26/2020 75076 Office/Outpatient Established Mo d MDM 30-39 Min Completed 11/25/2020 27628 Chronic Care MGMT 20 Mins Clinical Staff Time Per Calendar Month Completed 11/25/2020 04060 Chronic Care Management Services Ea Addl 20 Min Completed 04/23/2020 12323296 Mammogram Completed 06/27/2019 [id number] Diabetic Retinal Eye Exam Comple yadiel 04/19/2019 17878652 Mammogram Completed 04/19/2019 043226712 Bone Mineral Density Test Comple yadiel 02/20/2018 33283172 Mammogram Completed 06/08/2017 573120613 Diabetic Retinal Eye Exam Comple yadiel 12/15/2016 321307629 Diabetic Retinal Eye Exam Comple yadiel 12/24/2015 137018439 Diabetic Retinal Eye Exam Comple yadiel 07/13/2015 200349026 Diabetic Retinal Eye Exam Comple yadiel 12/04/2014 05752366 Colonoscopy Completed 10/30/2014 939082327 Diabetic Retinal Eye Exam Comple yadiel 03/17/2014 919167861 Diabetic Retinal Eye Exam Comple yadiel 01/20/2014 935501580 Diabetic Retinal Eye Exam Comple yadiel 09/20/2013 340014552 Diabetic Retinal Eye Exam Comple yadiel 04/30/2013 86037748 Mammogram Completed 01/18/2013 361381713 Diabetic Retinal Eye Exam Comple yadiel Medical Devices Description No Information Available Encounters Type Date Location Provider Dx Diagnosis Office Visit 11/26/2020 2:00p [facility] 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 I10 Essential (primary) hyperten frieda G89.29 Other chronic pain E11.42 Type 2 diabetes mellitus wit h diabetic polyneuropathy Z79.4 USP (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 of i nsulin Z89.411 Acquired absence of right gr eat toe Assessments Date Code Description Provider 05/19/2021 Z12.31 Encounter for screen ing mammogram for malignant neoplasm of breast Stephanie Murphy DO 05/19/2021 E11.42 Type 2 diabetes mellitus with di abetic polyneuropathy Stephanie Murphy DO 05/19/2021 D50.9 Iron deficiency anemia, unspecif ied Stephanie Murphy,DO 05/19/2021 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 Stephanie Murphy,DO 05/19/2021 Z86.711 Personal history of pulmonary em bolism Stephanie Murphy,DO 05/19/2021 G89.29 Other chronic pain Stephanie Murphy,D O 05/19/2021 Z79.4 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 of insul in Stephanie Murphy,DO [...] therapeutic drug l evel monitoring Anjelica Powers, LAKSHMI 12/01/2020 Z51.81 Encounter for therapeutic drug l evel monitoring Protime 12/01/2020 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 Anjelica Powers, SHINGLE CARRIER 12/01/2020 Z79.01 USP (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 Protime 12/01/2020 Z86.711 Personal history of pulmonary em bolism Anjelica Powers, SHINGLE CARRIER 12/01/2020 Z86.711 Personal history of pulmonary em bolism Protime 11/26/2020 Z51.81 Encounter for therapeutic drug l evel monitoring Anjelica Powers, SHINGLE CARRIER 11/26/2020 D50.9 Iron deficiency anemia, unspecif ied Stephanie Murphy,DO 11/26/2020 Z86.711 Personal history of pulmonary em bolism Stephanie Murphy,DO 11/26/2020 Z51.81 Encounter for therapeutic drug l evel monitoring Protime 11/26/2020 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 Stephanie Murphy,DO 11/26/2020 I10 Essential (primary) hypertension Stephanie Murphy,DO 11/26/2020 Z86.711 Personal history of pulmonary em bolism Anjelica Powers, SHINGLE CARRIER 11/26/2020 G89.29 Other chronic pain Stephanie Murphy,D O 11/26/2020 E11.42 Type 2 diabetes mellitus with di abetic polyneuropathy Stephanie Murphy,DO 11/26/2020 Z86.711 Personal history of pulmonary em bolism Protime 11/26/2020 Z79.4 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 of insul in Stephanie Murphy,DO 11/26/2020 Z89.411 Acquired absence of right great toe Stephanie Murphy,DO 11/26/2020 Z79.01 USP (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 Anjelica Powers, [facility] 11/26/2020 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
--- OUTSIDE RECORDS SUMMARY | 2021-06-02 16:53 | CCD ---
Author Author [facility] Organization [facility] Address Unknown Phone Unavailable Care Team Providers Care Timing Inspector Name Role Phone Serg Ledbetter Unavailable PROBLEMS Type Condition ICD9-CM Code QSL87-EX Code Onset Dates Condition S tatus W/U Status Risk SNOMED Code Notes Problem PVD (peripheral vascular disease) I73.9 Active confirmed 266017426 Problem Osteomyelitis of foot, left, acute M86.172 Activ e confirmed 60248405 Problem Gastroesophageal reflux disease without esophagitis K21.9 Active confirmed 638366151 Problem Non-pressure chronic ulcer o f other part of right foot with fat layer exposed L97.512 Active confirmed 009024142 Problem Chronic ulcer of right great toe with fat layer exposed L97.512 Active confirmed 402158122 Problem Infection due to Enterobacter cloacae A49.8 Ac tive confirmed 346268221 Problem 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 Active confirmed 134756299 Problem Charcot foot due to diabetes mellitus E11.610 Ac tive confirmed 988121472 Problem Streptococcal infection, unspecified site A49.1 Active confirmed 942972312 Problem Non-pressure chronic ulcer o f other part of left foot limited to breakdown of skin L97.521 Active confirmed 985996189 Problem Suspected deep tissue injury of unknown depth of heel S90.30XA Active confirmed 245791798 Problem 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 Active confirmed 549185786 Problem Resistance to vancomycin Z16.21 Active confirmed 93074764 Problem Non-pressure chronic ulcer o f other part of left foot with fat layer exposed L97.522 Active confirmed 583806056 Problem Chronic multifocal osteomyelitis of right foot M86 .371 Active confirmed 845406413 Problem Pain in right foot M79.671 Active confirmed 97457697 Problem Ischemic ulcer of toe of right foot with necrosis of bone L97.514 Active confirmed 475458646 Problem Pain of left foot M79.672 Active confirmed 3 36986045806932 Problem 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 of muscle L97.413 Active confirmed 192118985 Problem Type 2 diabetes mellitus with foot ulcer E11.621 Active confirmed 555546338 Problem Diabetic peripheral neuropathy E11.42 Active confir med 707437640 Problem 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 L97.414 Active confirmed 698631019 Problem 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 Active confirmed 630352665 Problem Ulcer of left heel, with fat layer exposed L97.422 Active confirmed 455822059 Problem Non-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 and 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 L97.412 Active confirmed 790910378 Problem Non-pressure chronic ulcer o f other part of left foot with unspecified severity L97.529 Active confirmed 968440883 Problem Pressure injury of right heel, stage 2 L89.612 A ctive confirmed 804372323 Problem 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 with unspecified severity L97.429 Active confirmed Problem Postoperative wound dehiscence, subsequent encounter T81.31XD Active confirmed 508054544 Problem 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 Active confirmed 991503488 Problem Deep tissue injury T14.8 Active confirmed 2 94241721 Problem Chronic venous hypertension (idiopathic) with ulcer of left lower extremity I87.312 Active confirmed 700208323833680 Problem Pseudomonas aeruginosa infection A49.8 Active conf irmed 03818188 Problem Abrasion of left heel, initial encounter S90.812A Active confirmed 757221013 Problem 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 L97.422 Active confirmed 261597417 Problem Postoperative dehiscence of skin wound, initial encounter T81.31XA Active confirmed 131628094 Problem Non-pressure ulcer of left lower extremity L97.929 Active confirmed 49580040 Problem Deep tissue injury T14.8XXA Active confirmed 180472130 ALLERGIES Allergen (clinical drug ingredient) Drug/Non Drug Allergy do cumented on EMR Reaction Allergy Type Onset Date Status Codeine Phosphate([facility] Code:[address]-31) put pt in coma D rug Allergy Active celecoxib Celebrex([facility] Code:[address]-88) purple skin,itchy Drug Al lergy Active ENCOUNTERS from 1955 to 2021-05-13 Encounter Location Date Provider Diagnosis [facility] [phone] [place] [address] Apr, Serg Ledbetter Type 2 diabetes mellitus [...] History Observation Description Sex Assigned At Unknown Sabianist: Question Answer Notes Sabianist No holiness beliefs that would impact health care; no holiness preference BMI Care Goal Follow-Up Question Answer Notes Above Normal BMI Follow-Up Dietary management educatio n, guidance, and counseling Tobacco Use: Question Answer Notes Are you a: never smoker REASON FOR REFERRAL No Information VITAL SIGNS Weight 247 lbs Apr, Height 5'4" in Apr, BMI 42.39 kg/m2 Apr, Heart Rate 74 /min Apr, Respiratory Rate 18 /min Apr, Temperature 97 degrees Fahrenheit Apr, Oximetry 96 Apr, Blood pressure systolic 146 mm Hg Apr, Blood pressure diastolic 64 mm Hg Apr, MEDICATIONS Medication SIG (Take, Route, Frequency, Duration) Notes Start Da te End Date Status Ballwin 5-325 MG 1 tablet as needed Orally every 4 hrs as needed for pain 4-10 Active Simvastatin 5 MG 1 tablet in the evening Orally Once a day for 30 day (s) Active Warfarin Sodium 4 MG 1 tablet Orally Once a day,monday ay 1 1/2 tabs M and F, 1/2 tab on monday Activ e Senna 8.6 MG 2 tablets at bedtime as needed Orally Once a day for 3 0 day(s) Active Lisinopril 10 MG 1 tablet Orally Daily Active Cephalexin 500 MG 1 tablet Orally TID Active Lisinopril-hydroCHLOROthiazide 10-12.5 MG 2 tablet Orally Once a day Active Pantoprazole Sodium 40 MG 1 tablet Orally twice a day Active Fluticasone Propionate 50 MCG/ACT 1 spray in each nost ril Nasally Once a day for 30 day(s) Active Metoclopramide HCl 10 MG 1 tablet before meals Orally Twice a day for 30 day(s) Active Levemir 60 units Subcutaneous Daily after dinner Active Ferrous Sulfate 325 (65 Fe) MG 1 tablet Orally every other day Active Insulin Aspart 100 UNIT/ML Subcutaneous 4 units Active Warfarin Sodium 4 MG 1.5 tablets Orally Once a da y monday and monday, 0.5 tablets orally on wednesdays Act sachi Dorzolamide HCl-Timolol Mal 22.3-6.8 MG/ML 1 drop into affected eye Ophthalmic Twice a day Active Santyl 250 UNIT/GM 1 application to affected ar ea Externally Once a day for 30 day(s) Sep, Not-Taking Cymbalta 30 MG 1 capsule Orally with food Once a day for 30 day (s) Feb, Active Fexofenadine HCl 180 MG 1 tablet as needed Orally Once a day for 30 day(s) Active Brimonidine Tartrate 0.15 % 1 drop into affected eye O phthalmic Three times a day Active Atropine Eye Drops 1% evendays once in left eye Active Bactrim DS 800-160 MG 1 tablet Orally Twice a day for 10 days Active Aleve 220 MG 1 tablet with food or milk as needed Orally every 12 hrs Active hydroCHLOROthiazide 12.5 MG 1 tablet in the morning Or ally Once a day for 30 day(s) Active Gabapentin 400 MG 1 tablet Orally for pain three times william ly MDD3 for 30 day(s) Active Kayexalate 15gm/60ml as directed orally once for 1 dose(s) Oct, Active Latanoprost 0.005 % 1 drop into affected eye in the evening Ophthalmic Once a day Active NovoLOG 100 UNIT/ML as directed Subcutaneous 10 units before breakfast 16 units before lunch, 16 units before dinner Active Montelukast Sodium 10 MG 1 tablet Orally Once a day for 30 day(s) Active Clindamycin HCl 150 MG 1 tab Orally four times daily for 30 Days Jul, Not-Taking prednisoLONE Acetate 1 % 1 drop into affected eye Oph thalmic to left eye Twice a day Not-Taking NovoLOG FlexPen 100 UNIT/ML as directed Subcutaneous 8 units prior to breakfast and lunch, 10 units before dinner Active PROCEDURES from 1955 to 2021-05-13 Procedure Date Ordered Result Body Site Medication: 4% Lidocaine topical cream (Anecream) 5gm 2021-05-12 N/A RESULTS No Results REASON FOR VISIT BLE Heel Wound MEDICAL (GENERAL) HISTORY Type Description Date Medical [...] Hospitalization History illness, sent to [facility] 06/2014 Hospitalization History pacreatitis and brain infection [...] with fat layer exposed (ICD-10 - L97.512) I, Leni Pak, documented the above order acting as a scribe for Dr. Ledbetter. I have reviewed the above order, written by tierney Weinberg, and I verify that it is accurate. PLAN OF TREATMENT Treatment Notes Assessment Notes Clinical Notes Non-pressure chronic ulcer of other part of right foot with fat layer exposed I, Leni Pak, documented the above order acting as a scribe for Dr. Ledbetter. I have reviewed the above order, written by tierney Weinberg, and I verify that it is accurate. Next Appt Details Provider Name:Serg Duttonanna, 11:15:00 AM, [address], , [place], [address], Provider Name:Serg Duttonanna, 11:00:00 AM, [address], , [place], [address], Insurance Providers Payer Name Payer Address Payer Phone Insured Name Patient Relati onship to Insured Coverage Start Date Coverage End Date [facility] [address] [facility] [phone] [employer] [place] [employer] [address] [facility] [id number] [employer] self
--- OUTSIDE RECORDS SUMMARY | 2021-06-02 16:53 | CCD | Continuity of Care Document ---
Author Author Leatha MONTELONGO DPM Organization Unknown Address [address] [place] [address], [facility] [address] [place] [address] Phone [phone] Care Team Providers Care Vacuum Cleaner Repairer Name Role Phone MD Serg Ledbetter [facility] [phone] Problems Active Problems Provider Date Type 2 diabetes mellitus with ulcer Jed Montelongo DPM Ons et: 08/26/2020 Onychomycosis Jed Montelongo DPM Onset: 02/24/2021 Social History Type Date Description Comments Sex Unknown ETOH Use Denies alcohol use Tobacco Use Start: Unknown Patient has never smoked Allergies, Adverse Reactions, Alerts Active Allergies Criticality Reaction | Severity Comments Date Codeine Unable to assess criticality 08/21/2020 Celebrex Unable to assess criticality 08/21/2020 Medications Active Medications SIG Qnty Indications Ordering Provide r Date Brimonidine Tartrate 0.2% Solution Instill 1 Drop Into Each Eye Twice Daily as Directed Unk nown Pantoprazole Sodium 40mg Tablets D R Take 1 Tablet By Mouth Twice Daily Unknown Prednisolone Acetate 1% Suspension Unknown Simvastatin 5mg Tablets Stephanie Murphy MD Warfarin Sodium 4mg Tablets Take 1 To 2 Tablets By Mouth Once Daily as Directed Unknown Insulin Aspart Flexpen 100Unit/ML Solution Pen-Inject Inject 10 Units Subq Before Breakfast 16 Units AT Lunch And 16 Units AT Dinner Unknown Novolog Flexpen 100U nit/ML Solution Pen-Inject Stephanie Murphy MD Levemir Flextouch 10 0Unit/ML Solution Pen-Inject Stephanie Murphy MD Furosemide 20mg Tablets Stephanie Murphy MD Ferrous Gluconate 324(38Fe) mg Tab lets Take 1 Tablet By Mouth Every Other Day Unknown Immunizations Description No Information Available Vital Signs Date Vital Result Comment 09/11/2020 11:25am Height 64 inches 5'4" Weight 245.00 lb BP Systolic 132 mmHg BP Diastolic 62 mmHg Heart Rate 87 /min BMI (Body Mass Index) 42.0 kg/m2 08/21/2020 7:46am Height 64 inches 5'4" Weight 227.00 lb BP Systolic 118 mmHg BP Diastolic 78 mmHg Heart Rate 72 /min BMI (Body Mass Index) 39.0 kg/m2 Results Description No Information Available Procedures Date Code Description Status 04/22/2021 29685 Debridement 5 Nails Electric Com pleted 02/11/2021 39582 Debridement 5 Nails Electric Com pleted Medical Devices Description No Information Available Encounters Type Date Location Provider Dx Diagnosis Office Visit 12/07/2020 1:00p [facility] Jed Montelongo DPM Z48.89 Encounter for other specified surgical aftercare Assessments Date Code Description Provider 04/22/2021 B35.1 Tinea unguium Jed Montelongo, CAROLEE 04/22/2021 E11.42 Type 2 diabetes mellitus with di abetic polyneuropathy Jed Montelongo DPM 02/11/2021 B35.1 Tinea unguium Jed Montelongo, CAROLEE 02/11/2021 E11.42 Type 2 diabetes mellitus with di abetic polyneuropathy Jed Montelongo DPM 12/07/2020 Z48.89 Encounter for other specified rivero rgical aftercare Jed Montelongo DPM Plan of Treatment Future Appointment(s):* 07/01/2021 2:00 pm - Jed Montelongo DPM at [facility] Functional Status Description No Information Available Mental Status Description No Information Available Referrals Description No Information Available
--- OUTSIDE RECORDS SUMMARY | 2021-06-02 16:53 | CCD | Continuity of Care Document ---
Author Author Leatha PONCE P.A.-C. Organization Unknown Address [address] [place] [address] Phone [phone] Care Team Providers Care Toll Repairer Central Office Name Role Phone JeffreyStephanie D.O. AUTM [phone] Problems Active Problems Provider Date Dizziness Russel Yoder M.D. 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 Onset: 015 Social History Type Date Description Comments Sex Unknown Tobacco Use Start: Unknown Patient has never smoked Allergies, Adverse Reactions, Alerts Active Allergies Criticality Reaction | Severity Comments Date Codeine Unable to assess criticality 02/06/2015 Invokana Unable to assess criticality dizziness 06/27/2017 Inactive Allergies NKDA Unable to assess criticality 02/06/2015 Medications Description No Active Medications Immunizations Description No Information Available Vital Signs Date Vital Result Comment 04/27/2021 7:07am BP Systolic 110 mmHg BP Diastolic 70 mmHg Heart Rate 72 /min Respiratory Rate 16 /min 04/16/2020 7:18am BP Systolic 110 mmHg BP Diastolic 70 mmHg Heart Rate 80 /min Respiratory Rate 20 /min Results Description No Information Available Procedures Date Code Description Status 04/27/2021 66032 Office/Outpatient Established Mo d MDM 30-39 Min Completed Medical Devices Description No Information Available Encounters Type Date Location Provider Dx Diagnosis Office Visit 04/27/2021 2:00p Main office - [place] Roseline almonte P.A.-C. 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 Plan of Treatment Future Appointment(s):* 10/25/2021 11:00 am - Roseline Ponce P.A.-C. at [facility] 04/27/2021 - Roseline Ponce P.A.-C.* I65.23 Occlusion and stenosis of bilateral carotid arteries* Comments:* MRA of the neck showed 50% stenosis of the left carotid bulb. She continues Coumadin and Zocor. * R55 Syncope and collapse* Comments:* Not recurrent. * R42 Dizziness and giddiness* Comments:* Not recurrent. 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 Monitor for seizure activity. * Follow up:* 6 months. Functional Status Description No Information Available Mental Status Description No Information Available Referrals Description No Information Available"
--- OUTSIDE RECORDS SUMMARY | 2021-06-02 16:53 | CCD | Continuity of Care Document ---
Author Author Nurse #Leatha Hough Organization Unknown Address [address] [facility] [address] [place] [address] Phone Unavailable Care Team Providers Care External Grinder Tool Name Role Phone Russel Yoder MD AUTM [phone] Stephanie Murphy DO AUTM Unavailable Tiana Power MD AUTM [phone] Serg Ledbetter MD AUTM [phone] Umesh Queen III, MD AUTM Unavailable Roseline Ponce AUTM [phone] Pepe Griffiths MD AUTM [phone] Irene Woods MD AUTM [phone] [facility] AUTM [phone] Problems Active Problems Provider Date Disorder of [...] and as directed e11.9 1units Andrés Alexander, PRINCIPAL STATISTICAL SCIENTIST 01/13 Onetouch Ultra Strips Use 1 Strip [...] ulcer every other day. 10units Anjelica Powers, PRINCIPAL STATISTICAL SCIENTIST 03/29/2016 Pantoprazole Sodium 40mg Tablets D R [...] CPT Code Status Date Vaccine Lot # [id number] Given 07/04/2017 Pneumovax 23 [id number] Refused 05/21/2019 Influenza Vaccin e Quadrivalent Preser/Antibiotic Free Im Use [id number] Refused 05/24/2018 Influenza Virus Vaccine, Quadrivalent ([id number]), Derived From Cell [id number] Refused 07/04/2017 Influenza Vaccin e Quadrivalent Preser/Antibiotic [...] H/L Range Note Laboratory test finding 05/19/2021 [place] [id number] [phone] Hepatitis C Antibody <pending> Ferritin <pending> Laboratory test finding 05/19/2021 [place] [employer] mary beth coughlin [employer]: Dr Venu Olea [place] [id number] [phone] A1c <pending> Laboratory test finding 12/01/2020 Wi-Inr Inr 1.2 Laboratory test finding 11/26/2020 Wi-Inr Inr 2.6 Total Iron Binding Capacit 11/26/2020 [place] [id number] [phone] Iron (Fe) 64 g/dL Normal 50-170 Total Iron Binding Capacity 350 g/dL Normal 250-450 Percent Saturation 18.3 % Normal 13.2-45.0 Laboratory test finding 11/26/[address] [address] [phone] Ferritin 52 NG/ML Normal 8-252 Complete Blood Count 11/26/2020 [place] [employer]: [place] [address] [phone] WBC 6.7 x10*3/UL 4.1 - 10.9 RBC [...] 5.6 x10*3/UL 2.0 - 7.8 A1c 11/26/2020 [facility] [employer]: [place] [address] [phone] Hba1c 7.4 % High <5.7 1 Est Avg Glucose 166 mg/dL High 60 - 110 Basic Metabolic Panel 11/26/2020 [facility] [employer]: [place] [address] [phone] Glucose 255 mg/dL High 74 - 99 [...] LITTLE GFR LEFT ESRD GFR <15 ON TRANSACTIONAL ATTORNEY Procedures Date Code Description Status 04/02/2021 93785 Chronic Care Management Services Ea Addl 20 Min Completed 04/02/2021 79478 Chronic Care MGMT 20 Mins Clinical Staff Time Per Calendar Month Completed 02/26/2021 90216 Chronic Care MGMT 20 Mins Clinical Staff Time Per Calendar Month Completed 02/26/2021 32322 Chronic Care Management Services Ea Addl 20 Min Completed 02/09/2021 59676 Complex Chronic Care MGMT Servic e Ea Addl 30 Min Completed 02/09/2021 39593 Complex Chronic Care Management SVC 1St 60 Min Completed 01/04/2021 94222 Chronic Care MGMT 20 Mins Clinical Staff Time Per Calendar Month Completed 11/26/2020 51833 Office/Outpatient Established Mo d MDM 30-39 Min Completed 11/25/2020 92580 Chronic Care MGMT 20 Mins Clinical Staff Time Per Calendar Month Completed 11/25/2020 66670 Chronic Care Management Services Ea Addl 20 Min Completed 04/23/2020 [id number] Mammogram Completed 06/27/2019 [id number] Diabetic Retinal Eye Exam Comple [facility] 04/19/2019 [id number] Mammogram Completed 04/19/2019 [id number] Bone Mineral Density Test Comple [facility] 02/20/2018 [id number] Mammogram Completed 06/08/2017 [id number] Diabetic Retinal Eye Exam Comple [facility] 12/15/2016 [id number] Diabetic Retinal Eye Exam Comple [facility] 12/24/2015 [id number] Diabetic Retinal Eye Exam Comple [facility] 07/13/2015 [id number] Diabetic Retinal Eye Exam Comple [facility] 12/04/2014 [id number] Colonoscopy Completed 10/30/2014 [id number] Diabetic Retinal Eye Exam Comple [facility] 03/17/2014 [id number] Diabetic Retinal Eye Exam Comple [facility] 01/20/2014 [id number] Diabetic Retinal Eye Exam Comple [facility] 09/20/2013 [id number] Diabetic Retinal Eye Exam Comple [facility] 04/30/2013 [id number] Mammogram Completed 01/18/2013 [id number] Diabetic Retinal Eye Exam [facility] Medical Devices Description No Information Available Encounters Type Date Location Provider Dx Diagnosis Office Visit 11/26/2020 2:00p [facility] Stephanie Murphy ,DO D50.9 Iron deficiency anemia, unspecified Z86.711 Personal history of pulmonar y embolism Z79.01 FPC (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 of a nticoagulants I10 Essential (primary) hyperten frieda G89.29 Other chronic pain E11.42 Type 2 diabetes mellitus wit h diabetic polyneuropathy Z79.4 data support specialist (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 of i nsulin Z89.411 Acquired absence of right gr eat toe Assessments Date Code Description Provider 05/19/2021 Z12.31 Encounter for screen ing mammogram for malignant neoplasm of breast Stephanie Murphy,DO 05/19/2021 E11.42 Type 2 diabetes mellitus with di abetic polyneuropathy Stephanie Jeffrey,DO 05/19/2021 D50.9 Iron deficiency anemia, unspecif ied Stephanie Murphy,DO 05/19/2021 Z79.01 data support specialist (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 Stephanie Jeffrey,DO 05/19/2021 Z86.711 Personal history of pulmonary em bolism Stephanie Murphy,DO 05/19/2021 G89.29 Other chronic pain Stephanie Murphy,D O 05/19/2021 Z79.4 FPC (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 of insul in Stephanie Murphy,DO [...] therapeutic drug l evel monitoring Anjelica Powers, [facility] 12/01/2020 Z51.81 Encounter for therapeutic drug l evel monitoring Protime 12/01/2020 Z79.01 data support specialist (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 Anjelica Powers, [facility] 12/01/2020 Z79.01 data support specialist (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 Protime 12/01/2020 Z86.711 Personal history of pulmonary em bolism Anjelica Powers, [facility] 12/01/2020 Z86.711 Personal history of pulmonary em bolism Protime 11/26/2020 Z51.81 Encounter for therapeutic drug l evel monitoring Anjelica Powers, [facility] 11/26/2020 D50.9 Iron deficiency anemia, unspecif ied Stephanie Jeffrey,DO 11/26/2020 Z86.711 Personal history of pulmonary em bolism Stephanie Jeffrey,DO 11/26/2020 Z51.81 Encounter for therapeutic drug l evel monitoring Protime 11/26/2020 Z79.01 FPC (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 Stephanie Jeffrey,DO 11/26/2020 I10 Essential (primary) hypertension Stephanie Murphy,DO 11/26/2020 Z86.711 Personal history of pulmonary em bolism Anjelica Powers, [facility] 11/26/2020 G89.29 Other chronic pain Stephanie Murphy,D O 11/26/2020 E11.42 Type 2 diabetes mellitus with di abetic polyneuropathy Stephanie Murphy,DO 11/26/2020 Z86.711 Personal history of pulmonary em bolism Protime 11/26/2020 Z79.4 FPC (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 of insul in Stephanie Murphy DO 11/26/2020 Z89.411 Acquired absence of right great toe Stephanie Murphy DO 11/26/2020 Z79.01 data support specialist (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 Anjelica Cynthia Coleman, PRINCIPAL STATISTICAL SCIENTIST 11/26/2020 Z79.01 data support specialist (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 Protime 11/25/2020 I10 Essential (primary) hypertension Stephanie Murphy DO 11/25/2020 G89.29 Other chronic pain Darius Miller O 11/25/2020 E11.42 Type 2 diabetes mellitus with di abetic polyneuropathy Stephanie Murphy DO 11/25/2020 K21.9 Gastro-esophageal reflux disease without esophagitis Stephanie Murphy DO Plan of Treatment Future Appointment(s):* 10/26/2021 10:40 am - Stephanie Murphy DO at [facility] 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
--- OUTSIDE RECORDS SUMMARY | 2021-06-02 16:54 | CCD ---
Author Author [facility] Organization [facility] Address Unknown Phone Unavailable Care Team Providers Care Photographic Intelligence Officer Name Role Phone Serg Ledbetter Unavailable PROBLEMS Type Condition ICD9-CM Code GGC65-HQ Code Onset Dates Condition S tatus W/U Status Risk SNOMED Code Notes Problem PVD (peripheral vascular disease) I73.9 Active confirmed 858924048 Problem Osteomyelitis of foot, left, acute M86.172 Activ e confirmed 76199913 Problem Gastroesophageal reflux disease without esophagitis K21.9 Active confirmed 939781962 Problem Non-pressure chronic ulcer o f other part of right foot with fat layer exposed L97.512 Active confirmed 425878554 Problem Chronic ulcer of right great toe with fat layer exposed L97.512 Active confirmed 992415933 Problem Infection due to Enterobacter cloacae A49.8 Ac tive confirmed 546373520 Problem 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 Active confirmed 724103478 Problem Charcot foot due to diabetes mellitus E11.610 Ac tive confirmed 672112782 Problem Streptococcal infection, unspecified site A49.1 Active confirmed 354008800 Problem Non-pressure chronic ulcer o f other part of left foot limited to breakdown of skin L97.521 Active confirmed 942798792 Problem Suspected deep tissue injury of unknown depth of heel S90.30XA Active confirmed 801338698 Problem 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 Active confirmed 950408583 Problem Resistance to vancomycin Z16.21 Active confirmed 88909030 Problem Non-pressure chronic ulcer o f other part of left foot with fat layer exposed L97.522 Active confirmed 672751228 Problem Chronic multifocal osteomyelitis of right foot M86 .371 Active confirmed 525274067 Problem Pain in right foot M79.671 Active confirmed 89073507 Problem Ischemic ulcer of toe of right foot with necrosis of bone L97.514 Active confirmed 331954223 Problem Pain of left foot M79.672 Active confirmed 3 77350470515701 Problem 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 of muscle L97.413 Active confirmed 328273480 Problem Type 2 diabetes mellitus with foot ulcer E11.621 Active confirmed 302093066 Problem Diabetic peripheral neuropathy E11.42 Active confir med 794405931 Problem 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 L97.414 Active confirmed 037558340 Problem 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 Active confirmed 034014024 Problem Ulcer of left heel, with fat layer exposed L97.422 Active confirmed 303163457 Problem Non-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 and 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 L97.412 Active confirmed 425171374 Problem Non-pressure chronic ulcer o f other part of left foot with unspecified severity L97.529 Active confirmed 662687886 Problem Pressure injury of right heel, stage 2 L89.612 A ctive confirmed 137244851 Problem 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 with unspecified severity L97.429 Active confirmed Problem Postoperative wound dehiscence, subsequent encounter T81.31XD Active confirmed 393719500 Problem 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 Active confirmed 215579586 Problem Deep tissue injury T14.8 Active confirmed 2 50227003 Problem Chronic venous hypertension (idiopathic) with ulcer of left lower extremity I87.312 Active confirmed 906369416301672 Problem Pseudomonas aeruginosa infection A49.8 Active conf irmed 35789108 Problem Abrasion of left heel, initial encounter S90.812A Active confirmed 369532329 Problem 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 L97.422 Active confirmed 899357213 Problem Postoperative dehiscence of skin wound, initial encounter T81.31XA Active confirmed 972243653 Problem Non-pressure ulcer of left lower extremity L97.929 Active confirmed 24706917 Problem Deep tissue injury T14.8XXA Active confirmed 985417010 ALLERGIES Allergen (clinical drug ingredient) Drug/Non Drug Allergy do cumented on EMR Reaction Allergy Type Onset Date Status Codeine Phosphate([facility] Code:[address]-81) put pt in coma D rug Allergy Active celecoxib Celebrex([facility] Code:[address]-28) purple skin,itchy Drug Al lergy Active ENCOUNTERS from 1955 to 2021-03-23 Encounter Location Date Provider Diagnosis [facility] [phone] [place] [address] Mar, Serg Ledbetter Type 2 diabetes mellitus wit [...] History Observation Description Sex Assigned At Unknown Taoism: Question Answer Notes Taoism No christian beliefs that would impact health care; no christian preference BMI Care Goal Follow-Up Question Answer Notes Above Normal BMI Follow-Up Dietary management educatio n, guidance, and counseling Tobacco Use: Question Answer Notes Are you a: never smoker REASON FOR REFERRAL No Information VITAL SIGNS Weight 247 lbs Mar, Height 5'4" in Mar, BMI 42.39 kg/m2 Mar, Heart Rate 66 /min Mar, Respiratory Rate 16 /min Mar, Temperature 96.3 degrees Fahrenheit Mar, Oximetry 93 Mar, Blood pressure systolic 117 mm Hg Mar, Blood pressure diastolic 68 mm Hg Mar, MEDICATIONS Medication SIG (Take, Route, Frequency, Duration) Notes Start Da te End Date Status [place] 5-325 MG 1 tablet as needed Orally every 4 hrs as needed for pain 4-10 Active Clindamycin HCl 150 MG 1 tab Orally four times daily for 30 Days Jul, Active Warfarin Sodium 4 MG 1 tablet Orally Once a day,monday ay 1 1/2 tabs M and F, 1/2 tab on monday Activ e prednisoLONE Acetate 1 % 1 drop into affected eye Oph thalmic to left eye Twice a day Not-Taking Santyl 250 UNIT/GM 1 application to affected ar ea Externally Once a day for 30 day(s) Sep, Active Cephalexin 500 MG 1 tablet Orally TID Active Dorzolamide HCl-Timolol Mal 22.3-6.8 MG/ML 1 drop into affected eye Ophthalmic Twice a day Active Pantoprazole Sodium 40 MG 1 tablet Orally twice a day Active Latanoprost 0.005 % 1 drop into affected eye in the evening Ophthalmic Once a day Active Ferrous Sulfate 325 (65 Fe) MG 1 tablet Orally every other day Active Simvastatin 5 MG 1 tablet in the evening Orally Once a day for 30 day (s) Active Lisinopril 10 MG 1 tablet Orally Daily Active Insulin Aspart 100 UNIT/ML Subcutaneous 4 units Active Levemir 60 units Subcutaneous Daily after dinner Active Lisinopril-hydroCHLOROthiazide 10-12.5 MG 2 tablet Orally Once a day Active NovoLOG 100 UNIT/ML as directed Subcutaneous 10 units before breakfast 16 units before lunch, 16 units before dinner Active Fluticasone Propionate 50 MCG/ACT 1 spray in each nost ril Nasally Once a day for 30 day(s) Active Senna 8.6 MG 2 tablets at bedtime as needed Orally Once a day for 3 0 day(s) Active Aleve 220 MG 1 tablet with food or milk as needed Orally every 12 hrs Active Bactrim DS 800-160 MG 1 tablet Orally Twice a day for 10 days Active Metoclopramide HCl 10 MG 1 tablet before meals Orally Twice a day for 30 day(s) Active NovoLOG FlexPen 100 UNIT/ML as directed Subcutaneous 8 units prior to breakfast and lunch, 10 units before dinner Active hydroCHLOROthiazide 12.5 MG 1 tablet in the morning Or ally Once a day for 30 day(s) Active Fexofenadine HCl 180 MG 1 tablet as needed Orally Once a day for 30 day(s) Active Warfarin Sodium 4 MG 1.5 tablets Orally Once a da y monday and monday, 0.5 tablets orally on wednesdays Act sachi Atropine Eye Drops 1% days once in left eye Active Montelukast Sodium 10 MG 1 tablet Orally Once a day for 30 day(s) Active Cymbalta 30 MG 1 capsule Orally with food Once a day for 30 day (s) Feb, Active Kayexalate 15gm/60ml as directed orally once for 1 dose(s) Oct, Active Brimonidine Tartrate 0.15 % 1 drop into affected eye O phthalmic Three times a day Active Gabapentin 400 MG 1 tablet Orally for pain three times william ly MDD3 for 30 day(s) Active PROCEDURES from 1955 to 2021-03-23 Procedure Date Ordered Result Body Site Medication: Silver Nitrate Stick topically 2021-03-17 N/A Medication: 4% Lidocaine topical cream (Anecream) 5gm 2021-03-17 N/A RESULTS No Results REASON FOR VISIT BLE wounds MEDICAL (GENERAL) HISTORY Type Description Date [...] une 2015 Hospitalization History illness, sent to [facility] 06/2014 Hospitalization History pacreatitis and brain infection [...] Notes Treatment Notes Treatm ent Clinical Notes Mar, Type 2 diabetes mellitus with foot ulcer (ICD-10 - E11.621) Mar, Other complications of skin graft (allograft) (autograft) (ICD-10 - T86.828) Mar, Non-pressure ulcer of left lower extremity (ICD- 10 - L97.929) Mar, Non-pressure chronic ulcer o f other part of right foot with fat layer exposed (ICD-10 - L97.512) PLAN OF TREATMENT Next Appt Details 1 Week Reason: Provider Name:Serg Ledbetter, 11:15:00 AM, [address], , [place], [address], Provider Name:Serg Ledbetter 11:15:00 AM, [address], , [place], [address], Provider Name:Serg Ledbetter 11:00:00 AM, [address], , [place], [address], Insurance Providers Payer Name Payer Address Payer Phone Insured Name Patient Relati onship to Insured Coverage Start Date Coverage End Date MEDICAID [employer] [address] [facility] [id number] [place] [facility] [id number] [facility] [address] [employer]
--- OUTSIDE RECORDS SUMMARY | 2021-06-02 16:54 | CCD | Continuity of Care Document ---
Author Author Leatha MONTELONGO DPM Organization Unknown Address [address] [place] [address], [facility] [address] [place] [address] Phone [phone] Care Team Providers Care Product Safety Associate Name Role Phone MD Serg Ledbetter [facility] [phone] Problems Active Problems Provider Date Type 2 [...] Information Available Procedures Date Code Description Status 02/11/2021 08184 Debridement 5 Nails Electric Com pleted Medical Devices Description No Information Available Encounters Type Date Location Provider Dx Diagnosis Office Visit 12/07/2020 1:00p [place] [facility] Jed Montelongo DPM Z48.89 Encounter for other specified surgical aftercare Assessments Date Code Description Provider 02/11/2021 B35.1 Tinea unguium Jed Montelongo DPM 02/11/2021 E11.42 Type 2 diabetes mellitus with di abetic polyneuropathy Jed Montelongo DPM 12/07/2020 Z48.89 Encounter for other specified rivero rgical aftercare Jed Montelongo DPM Plan of Treatment Future Appointment(s):* 07/01/2021 2:00 pm - Jed Montelongo DPM at [facility] Functional Status Description No Information Available Mental Status Description No Information Available Referrals Description No Information Available
--- OUTSIDE RECORDS SUMMARY | 2021-06-02 16:54 | CCD ---
Author Author [facility] Organization [facility] Address Unknown Phone Unavailable Care Team Providers Care Sliver Former Name Role Phone Serg Ledbetter Unavailable PROBLEMS Type Condition ICD9-CM Code [id number] Code Onset Dates Condition S tatus W/U Status Risk SNOMED Code Notes Problem PVD (peripheral vascular disease) I73.9 Active confirmed 509759614 Problem Osteomyelitis of foot, left, acute M86.172 Activ e confirmed 93008644 Problem Gastroesophageal reflux disease without esophagitis K21.9 Active confirmed 221831351 Problem Non-pressure chronic ulcer o f other part of right foot with fat layer exposed L97.512 Active confirmed 691401305 Problem Chronic ulcer of right great toe with fat layer exposed L97.512 Active confirmed 310542217 Problem Infection due to Enterobacter cloacae A49.8 Ac tive confirmed 405923900 Problem 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 Active confirmed 312051790 Problem Charcot foot due to diabetes mellitus E11.610 Ac tive confirmed 839348050 Problem Streptococcal infection, unspecified site A49.1 Active confirmed 146168360 Problem Non-pressure chronic ulcer o f other part of left foot limited to breakdown of skin L97.521 Active confirmed 253478449 Problem Suspected deep tissue injury of unknown depth of heel S90.30XA Active confirmed 807345585 Problem 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 Active confirmed 804919581 Problem Resistance to vancomycin Z16.21 Active confirmed 07395135 Problem Non-pressure chronic ulcer o f other part of left foot with fat layer exposed L97.522 Active confirmed 222743789 Problem Chronic multifocal osteomyelitis of right foot M86 .371 Active confirmed 557004345 Problem Pain in right foot M79.671 Active confirmed 44889080 Problem Ischemic ulcer of toe of right foot with necrosis of bone L97.514 Active confirmed 131751286 Problem Pain of left foot M79.672 Active confirmed 3 12076585014902 Problem 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 of muscle L97.413 Active confirmed 680459072 Problem Type 2 diabetes mellitus with foot ulcer E11.621 Active confirmed 799304453 Problem Diabetic peripheral neuropathy E11.42 Active confir med 954255708 Problem 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 L97.414 Active confirmed 064284161 Problem 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 Active confirmed 688852560 Problem Ulcer of left heel, with fat layer exposed L97.422 Active confirmed 257305577 Problem Non-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 and 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 L97.412 Active confirmed 631456069 Problem Non-pressure chronic ulcer o f other part of left foot with unspecified severity L97.529 Active confirmed 004094892 Problem Pressure injury of right heel, stage 2 L89.612 A ctive confirmed 966892633 Problem 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 with unspecified severity L97.429 Active confirmed Problem Postoperative wound dehiscence, subsequent encounter T81.31XD Active confirmed 624861374 Problem 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 Active confirmed 682913846 Problem Deep tissue injury T14.8 Active confirmed 2 01405153 Problem Chronic venous hypertension (idiopathic) with ulcer of left lower extremity I87.312 Active confirmed 757042234213886 Problem Pseudomonas aeruginosa infection A49.8 Active conf irmed 75357297 Problem Abrasion of left heel, initial encounter S90.812A Active confirmed 511182266 Problem 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 L97.422 Active confirmed 824682283 Problem Postoperative dehiscence of skin wound, initial encounter T81.31XA Active confirmed 963852716 Problem Non-pressure ulcer of left lower extremity L97.929 Active confirmed 62486642 Problem Deep tissue injury T14.8XXA Active confirmed 270288541 ALLERGIES Allergen (clinical drug ingredient) Drug/Non Drug Allergy do cumented on EMR Reaction Allergy Type Onset Date Status Codeine Phosphate([facility] Code:[address]-53) put pt in coma D rug Allergy Active celecoxib Celebrex([facility] Code:[address]-83) purple skin,itchy Drug Al lergy Active ENCOUNTERS from 1955 to 2021-03-09 Encounter Location Date Provider Diagnosis [facility] [address] [phone] [place] [address] Feb, Serg Ledbetter Type 2 diabetes mellitus wit h foot ulcer E11.621 ; 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 and Non-pressure ulcer of left lower extremity L97.929 IMMUNIZATIONS Vaccine Route Administration Date Status Influenza [...] History Observation Description Sex Assigned At Unknown Gnosticism: Question Answer Notes Gnosticism No worship beliefs that would impact health care; no worship preference BMI Care Goal Follow-Up Question Answer Notes Above Normal BMI Follow-Up Dietary management educatio n, guidance, and counseling Tobacco Use: Question Answer Notes Are you a: never smoker REASON FOR REFERRAL No Information VITAL SIGNS Weight 247 lbs Feb, Weight-kg PER PT kg Feb, Height 5'4" in Feb, BMI 42.39 kg/m2 Feb, Heart Rate 73 /min Feb, Respiratory Rate 19 /min Feb, Temperature 95.1 degrees Fahrenheit Feb, Oximetry 93 Feb, Blood pressure systolic 122 mm Hg Feb, Blood pressure diastolic 87 mm Hg Feb, MEDICATIONS Medication SIG (Take, Route, Frequency, Duration) Notes Start Da te End Date Status Fluticasone Propionate 50 MCG/ACT 1 spray in each nost ril Nasally Once a day for 30 day(s) Active Santyl 250 UNIT/GM 1 application to affected ar ea Externally Once a day for 30 day(s) Sep, Active Bactrim DS 800-160 MG 1 tablet Orally Twice a day for 10 days Active Clindamycin HCl 150 MG 1 tab Orally four times daily for 30 Days Jul, Active Ferrous Sulfate 325 (65 Fe) MG 1 tablet Orally every other day Active Latanoprost 0.005 % 1 drop into affected eye in the evening Ophthalmic Once a day Active Simvastatin 5 MG 1 tablet in the evening Orally Once a day for 30 day (s) Active Warfarin Sodium 4 MG 1.5 tablets Orally Once a da y monday and monday, 0.5 tablets orally on wednesdays Act sachi Brimonidine Tartrate 0.15 % 1 drop into affected eye O phthalmic Three times a day Active Insulin Aspart 100 UNIT/ML Subcutaneous 4 units Active Dorzolamide HCl-Timolol Mal 22.3-6.8 MG/ML 1 drop into affected eye Ophthalmic Twice a day Active Metoclopramide HCl 10 MG 1 tablet before meals Orally Twice a day for 30 day(s) Active hydroCHLOROthiazide 12.5 MG 1 tablet in the morning Or ally Once a day for 30 day(s) Active [place] 5-325 MG 1 tablet as needed Orally every 4 hrs as needed for pain 4-10 Active Warfarin Sodium 4 MG 1 tablet Orally Once a day,monday ay Active NovoLOG 100 UNIT/ML as directed Subcutaneous 10 units before breakfast 16 units before lunch, 16 units before dinner Active Cephalexin 500 MG 1 tablet Orally TID Active prednisoLONE Acetate 1 % 1 drop into affected eye Oph thalmic to left eye Twice a day Not-Taking Cymbalta 30 MG 1 capsule Orally with food Once a day for 30 day (s) Feb, Active Pantoprazole Sodium 40 MG 1 tablet Orally twice a day Active NovoLOG FlexPen 100 UNIT/ML as directed Subcutaneous 8 units prior to breakfast and lunch, 10 units before dinner Active Montelukast Sodium 10 MG 1 tablet Orally Once a day for 30 day(s) Active Lisinopril 10 MG 1 tablet Orally Daily Active Gabapentin 400 MG 1 tablet Orally for pain three times william ly MDD3 for 30 day(s) Active Levemir 60 units Subcutaneous Daily after dinner Active Kayexalate 15gm/60ml as directed orally once for 1 dose(s) Oct, Active Senna 8.6 MG 2 tablets at bedtime as needed Orally Once a day for 3 0 day(s) Active Fexofenadine HCl 180 MG 1 tablet as needed Orally Once a day for 30 day(s) Active Aleve 220 MG 1 tablet with food or milk as needed Orally every 12 hrs Active Lisinopril-hydroCHLOROthiazide 10-12.5 MG 2 tablet Orally Once a day Active Atropine Eye Drops 1% evendays once in left eye Active PROCEDURES from 1953 to 2021-03-09 Procedure Date Ordered Result Body Site Medication: 4% Lidocaine topical cream (Anecream) 5gm 2021-03-04 N/A RESULTS No Results REASON FOR VISIT [...] of wound to right heel j une 2016 Hospitalization History illness, sent to [facility] 06/2014 Hospitalization History pacreatitis and brain infection [...] Notes Treatment Notes Treatm ent Clinical Notes Feb, Type 2 diabetes mellitus with foot ulcer (ICD-10 - E11.621) Feb, Other complications of skin graft (allograft) (autograft) (ICD-10 - T86.828) Feb, Non-pressure ulcer of left lower extremity (ICD- 10 - L97.929) PLAN OF TREATMENT Next Appt Details 1 Week Reason: Provider Name:Serg Ledbetter, 11:00:00 AM, [address], , [place], [address], Provider Name:Serg Ledbetter, 11:15:00 AM, [address], , [place], [address], Insurance Providers Payer Name Payer Address Payer Phone Insured Name Patient Relati onship to Insured Coverage Start Date Coverage End Date [facility] [address] [facility] [id number] [place] [employer] [address] [facility] [id number] [place] self
--- OUTSIDE RECORDS SUMMARY | 2021-06-02 16:54 | CCD ---
Author Author [facility] Organization [facility] Address Unknown Phone Unavailable Care Team Providers Care Rv Repair Technician Name Role Phone Serg Ledbetter Unavailable PROBLEMS Type Condition ICD9-CM Code [id number] Code Onset Dates Condition S tatus W/U Status Risk SNOMED Code Notes Problem PVD (peripheral vascular disease) I73.9 Active confirmed 224327601 Problem Osteomyelitis of foot, left, acute M86.172 Activ e confirmed 37225240 Problem Gastroesophageal reflux disease without esophagitis K21.9 Active confirmed 395617037 Problem Non-pressure chronic ulcer o f other part of right foot with fat layer exposed L97.512 Active confirmed 196892562 Problem Chronic ulcer of right great toe with fat layer exposed L97.512 Active confirmed 888299993 Problem Infection due to Enterobacter cloacae A49.8 Ac tive confirmed 959165455 Problem 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 Active confirmed 136654579 Problem Charcot foot due to diabetes mellitus E11.610 Ac tive confirmed 208652480 Problem Streptococcal infection, unspecified site A49.1 Active confirmed 443086472 Problem Non-pressure chronic ulcer o f other part of left foot limited to breakdown of skin L97.521 Active confirmed 790371740 Problem Suspected deep tissue injury of unknown depth of heel S90.30XA Active confirmed 197410774 Problem 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 Active confirmed 042739593 Problem Resistance to vancomycin Z16.21 Active confirmed 62128801 Problem Non-pressure chronic ulcer o f other part of left foot with fat layer exposed L97.522 Active confirmed 350785038 Problem Chronic multifocal osteomyelitis of right foot M86 .371 Active confirmed 120250060 Problem Pain in right foot M79.671 Active confirmed 21912474 Problem Ischemic ulcer of toe of right foot with necrosis of bone L97.514 Active confirmed 130137885 Problem Pain of left foot M79.672 Active confirmed 3 73718652252130 Problem 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 of muscle L97.413 Active confirmed 421747074 Problem Type 2 diabetes mellitus with foot ulcer E11.621 Active confirmed 468879823 Problem Diabetic peripheral neuropathy E11.42 Active confir med 688238584 Problem 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 L97.414 Active confirmed 006212112 Problem 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 Active confirmed 467334352 Problem Ulcer of left heel, with fat layer exposed L97.422 Active confirmed 201185576 Problem Non-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 and 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 L97.412 Active confirmed 222087023 Problem Non-pressure chronic ulcer o f other part of left foot with unspecified severity L97.529 Active confirmed 363771818 Problem Pressure injury of right heel, stage 2 L89.612 A ctive confirmed 230428413 Problem 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 with unspecified severity L97.429 Active confirmed Problem Postoperative wound dehiscence, subsequent encounter T81.31XD Active confirmed 860217305 Problem 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 Active confirmed 840484078 Problem Deep tissue injury T14.8 Active confirmed 2 49663163 Problem Chronic venous hypertension (idiopathic) with ulcer of left lower extremity I87.312 Active confirmed 820174011471979 Problem Pseudomonas aeruginosa infection A49.8 Active conf irmed 95140134 Problem Abrasion of left heel, initial encounter S90.812A Active confirmed 157822872 Problem 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 L97.422 Active confirmed 568435504 Problem Postoperative dehiscence of skin wound, initial encounter T81.31XA Active confirmed 183327611 Problem Non-pressure ulcer of left lower extremity L97.929 Active confirmed 17559807 Problem Deep tissue injury T14.8XXA Active confirmed 551965423 ALLERGIES Allergen (clinical drug ingredient) Drug/Non Drug Allergy do cumented on EMR Reaction Allergy Type Onset Date Status Codeine Phosphate([facility] Code:[address]-31) put pt in coma D rug Allergy Active celecoxib Celebrex([facility] Code:[address]-24) purple skin,itchy Drug Al lergy Active ENCOUNTERS from 1955 to 2021-03-29 Encounter Location Date Provider Diagnosis [facility] [address] [phone] [place] [address] 13 Mar, 2021 Serg Ledbetter IMMUNIZATIONS Vaccine Route Administration Date Status Influenza [...] History Observation Description Sex Assigned At Unknown Yarsani: Question Answer Notes Yarsani No latter day beliefs that would impact health care; no latter day preference BMI Care Goal Follow-Up Question Answer Notes Above Normal BMI Follow-Up Dietary management educatio n, guidance, and counseling Tobacco Use: Question Answer Notes Are you a: never smoker REASON FOR REFERRAL No Information VITAL SIGNS No information MEDICATIONS Medication SIG (Take, Route, Frequency, Duration) Notes Start Da te End Date Status Fluticasone Propionate 50 MCG/ACT 1 spray in each nost ril Nasally Once a day for 30 day(s) Active Cephalexin 500 MG 1 tablet Orally TID Active Simvastatin 5 MG 1 tablet in the evening Orally Once a day for 30 day (s) Active Lisinopril-hydroCHLOROthiazide 10-12.5 MG 2 tablet Orally Once a day Active Bactrim DS 800-160 MG 1 tablet Orally Twice a day for 10 days Active Atropine Eye Drops 1% evendays once in left eye Active [place] 5-325 MG 1 tablet as needed Orally every 4 hrs as needed for pain 4-10 Active Levemir 60 units Subcutaneous Daily after dinner Active Warfarin Sodium 4 MG 1 tablet Orally Once a day,monday ay 1 1/2 tabs M and F, 1/2 tab on monday Activ e Kayexalate 15gm/60ml as directed orally once for 1 dose(s) Oct, Active Warfarin Sodium 4 MG 1.5 tablets Orally Once a da y monday and monday, 0.5 tablets orally on wednesdays Act sachi Cymbalta 30 MG 1 capsule Orally with food Once a day for 30 day (s) Feb, Active Gabapentin 400 MG 1 tablet Orally for pain three times william ly MDD3 for 30 day(s) Active Pantoprazole Sodium 40 MG 1 tablet Orally twice a day Active Dorzolamide HCl-Timolol Mal 22.3-6.8 MG/ML 1 drop into affected eye Ophthalmic Twice a day Active Montelukast Sodium 10 MG 1 tablet Orally Once a day for 30 day(s) Active Insulin Aspart 100 UNIT/ML Subcutaneous 4 units Active Aleve 220 MG 1 tablet with food or milk as needed Orally every 12 hrs Active NovoLOG FlexPen 100 UNIT/ML as directed [...] O phthalmic Three times a day Active Clindamycin HCl 150 MG 1 tab Orally four times daily for 30 Days Jul, Active Metoclopramide HCl 10 MG 1 tablet before meals Orally Twice a day for 30 day(s) Active prednisoLONE Acetate 1 % 1 drop into affected eye Oph thalmic to left eye Twice a day Not-Taking Santyl 250 UNIT/GM 1 application to affected ar ea Externally Once a day for 30 day(s) Sep, Active Lisinopril 10 MG 1 tablet Orally Daily Active NovoLOG 100 UNIT/ML as directed Subcutaneous 10 units before breakfast 16 units before lunch, 16 units before dinner Active Ferrous Sulfate 325 (65 Fe) MG 1 tablet Orally every other day Active Latanoprost 0.005 % 1 drop into affected eye in the evening Ophthalmic Once a day Active PROCEDURES No Information RESULTS No Results REASON FOR VISIT Reschedule [facility] Apt. MEDICAL (GENERAL) HISTORY Type Description Date Medical [...] une 2015 Hospitalization History illness, sent to [facility] 06/2014 Hospitalization History pacreatitis and [...] No Information FUNCTIONAL STATUS No Information ASSESSMENTS No Information PLAN OF TREATMENT Next Appt Details Provider Name:Serg Ledbetter, 03:00:00 PM, [address], , [place], [address], Provider Name:Serg Ledbetter 11:00:00 AM, [address], , [place], [address], Insurance Providers Payer Name Payer Address Payer Phone Insured Name Patient Relati onship to Insured Coverage Start Date Coverage End Date MEDICAID [employer] [address] [facility] [id number] [phone] [place] [facility] [address] [facility] [id number] [place]
--- OUTSIDE RECORDS SUMMARY | 2021-06-02 16:54 | CCD ---
Author Author [facility] Organization [facility] Address Unknown Phone Unavailable Care Team Providers Care Drum Sealer Name Role Phone Serg Ledbetter Unavailable PROBLEMS Type Condition ICD9-CM Code [id number] Code Onset Dates Condition S tatus W/U Status Risk SNOMED Code Notes Problem PVD (peripheral vascular disease) I73.9 Active confirmed 509426883 Problem Osteomyelitis of foot, left, acute M86.172 Activ e confirmed 88818206 Problem Gastroesophageal reflux disease without esophagitis K21.9 Active confirmed 094650222 Problem Non-pressure chronic ulcer o f other part of right foot with fat layer exposed L97.512 Active confirmed 319734446 Problem Chronic ulcer of right great toe with fat layer exposed L97.512 Active confirmed 921192020 Problem Infection due to Enterobacter cloacae A49.8 Ac tive confirmed 749768781 Problem 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 Active confirmed 401231010 Problem Charcot foot due to diabetes mellitus E11.610 Ac tive confirmed 678921503 Problem Streptococcal infection, unspecified site A49.1 Active confirmed 169540591 Problem Non-pressure chronic ulcer o f other part of left foot limited to breakdown of skin L97.521 Active confirmed 447511162 Problem Suspected deep tissue injury of unknown depth of heel S90.30XA Active confirmed 258526766 Problem 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 Active confirmed 939876302 Problem Resistance to vancomycin Z16.21 Active confirmed 15731688 Problem Non-pressure chronic ulcer o f other part of left foot with fat layer exposed L97.522 Active confirmed 979093323 Problem Chronic multifocal osteomyelitis of right foot M86 .371 Active confirmed 643154688 Problem Pain in right foot M79.671 Active confirmed 97824772 Problem Ischemic ulcer of toe of right foot with necrosis of bone L97.514 Active confirmed 918467689 Problem Pain of left foot M79.672 Active confirmed 3 84640375121225 Problem 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 of muscle L97.413 Active confirmed 441855833 Problem Type 2 diabetes mellitus with foot ulcer E11.621 Active confirmed 112293148 Problem Diabetic peripheral neuropathy E11.42 Active confir med 940209231 Problem 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 L97.414 Active confirmed 196083917 Problem 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 Active confirmed 007482161 Problem Ulcer of left heel, with fat layer exposed L97.422 Active confirmed 756787790 Problem Non-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 and 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 L97.412 Active confirmed 685260991 Problem Non-pressure chronic ulcer o f other part of left foot with unspecified severity L97.529 Active confirmed 013096883 Problem Pressure injury of right heel, stage 2 L89.612 A ctive confirmed 845059972 Problem 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 with unspecified severity L97.429 Active confirmed Problem Postoperative wound dehiscence, subsequent encounter T81.31XD Active confirmed 688979215 Problem 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 Active confirmed 622843124 Problem Deep tissue injury T14.8 Active confirmed 2 50681543 Problem Chronic venous hypertension (idiopathic) with ulcer of left lower extremity I87.312 Active confirmed 796078588803879 Problem Pseudomonas aeruginosa infection A49.8 Active conf irmed 82181636 Problem Abrasion of left heel, initial encounter S90.812A Active confirmed 532278909 Problem 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 L97.422 Active confirmed 025234996 Problem Postoperative dehiscence of skin wound, initial encounter T81.31XA Active confirmed 264002663 Problem Non-pressure ulcer of left lower extremity L97.929 Active confirmed 00635795 Problem Deep tissue injury T14.8XXA Active confirmed 566234293 ALLERGIES Allergen (clinical drug ingredient) Drug/Non Drug Allergy do cumented on EMR Reaction Allergy Type Onset Date Status Codeine Phosphate([facility] Code:[address]-44) put pt in coma D rug Allergy Active celecoxib Celebrex([facility] Code:[address]-34) purple skin,itchy Drug Al lergy Active ENCOUNTERS from 1955 to 2021-04-09 Encounter Location Date Provider Diagnosis [facility] Care [address] [phone] [place] [address] Mar, Serg Ledbetter Type 2 diabetes mellitus [...] History Observation Description Sex Assigned At Unknown Pentecostal: Question Answer Notes Pentecostal No baptist beliefs that would impact health care; no baptist preference BMI Care Goal Follow-Up Question Answer Notes Above Normal BMI Follow-Up Dietary management educatio n, guidance, and counseling Tobacco Use: Question Answer Notes Are you a: never smoker REASON FOR REFERRAL No Information VITAL SIGNS Weight 247 lbs Mar, Height 5'4" in Mar, BMI 42.39 kg/m2 Mar, Heart Rate 65 /min Mar, Respiratory Rate 17 /min Mar, Temperature 98.4 degrees Fahrenheit Mar, Oximetry 94 Mar, Blood pressure systolic 124 mm Hg Mar, Blood pressure diastolic 59 mm Hg Mar, MEDICATIONS Medication SIG (Take, Route, Frequency, Duration) Notes Start Da te End Date Status Bactrim DS 800-160 MG 1 tablet Orally Twice a day for 10 days Active Metoclopramide HCl 10 MG 1 tablet before meals Orally Twice a day for 30 day(s) Active Cephalexin 500 MG 1 tablet Orally TID Active Simvastatin 5 MG 1 tablet in the evening Orally Once a day for 30 day (s) Active Clindamycin HCl 150 MG 1 tab Orally four times daily for 30 Days Jul, Active Lisinopril-hydroCHLOROthiazide 10-12.5 MG 2 tablet Orally Once a day Active Senna 8.6 MG 2 tablets at bedtime as needed Orally Once a day for 3 0 day(s) Active Latanoprost 0.005 % 1 drop into affected eye in the evening Ophthalmic Once a day Active Aleve 220 MG 1 tablet with food or milk as needed Orally every 12 hrs Active Santyl 250 UNIT/GM 1 application to affected ar ea Externally Once a day for 30 day(s) Sep, Active Lisinopril 10 MG 1 tablet Orally Daily Active Fexofenadine HCl 180 MG 1 tablet as needed Orally Once a day for 30 day(s) Active Brimonidine Tartrate 0.15 % 1 drop into affected eye O phthalmic Three times a day Active Fluticasone Propionate 50 MCG/ACT 1 spray in each nost ril Nasally Once a day for 30 day(s) Active NovoLOG FlexPen 100 UNIT/ML as directed Subcutaneous 8 units prior to breakfast and lunch, 10 units before dinner Active Gabapentin 400 MG 1 tablet Orally for pain three times william ly MDD3 for 30 day(s) Active Warfarin Sodium 4 MG 1.5 tablets Orally Once a da y monday and monday, 0.5 tablets orally on wednesdays Act sachi Insulin Aspart 100 UNIT/ML Subcutaneous 4 units Active NovoLOG 100 UNIT/ML as directed Subcutaneous 10 units before breakfast 16 units before lunch, 16 units before dinner Active [place] 5-325 MG 1 tablet as needed Orally every 4 hrs as needed for pain 4-10 Active Ferrous Sulfate 325 (65 Fe) MG 1 tablet Orally every other day Active hydroCHLOROthiazide 12.5 MG 1 tablet in the morning Or ally Once a day for 30 day(s) Active prednisoLONE Acetate 1 % 1 drop into affected eye Oph thalmic to left eye Twice a day Not-Taking Montelukast Sodium 10 MG 1 tablet Orally Once a day for 30 day(s) Active Atropine Eye Drops 1% evendays once in left eye Active Dorzolamide HCl-Timolol Mal 22.3-6.8 MG/ML 1 drop into affected eye Ophthalmic Twice a day Active Warfarin Sodium 4 MG 1 tablet Orally Once a day,monday ay 1 1/2 tabs M and F, 1/2 tab on monday Activ e Levemir 60 units Subcutaneous Daily after dinner Active Cymbalta 30 MG 1 capsule Orally with food Once a day for 30 day (s) Feb, Active Pantoprazole Sodium 40 MG 1 tablet Orally twice a day Active Kayexalate 15gm/60ml as directed orally once for 1 dose(s) Oct, Active PROCEDURES from 1953 to 2021-04-09 Procedure Date Ordered Result Body Site Medication: 4% Lidocaine topical cream (Anecream) 5gm 2021-04-07 N/A RESULTS No Results REASON FOR VISIT [...] 2015 Hospitalization History illness, sent to [facility] 06/2014 Hospitalization History pacreatitis and brain [...] L97.512) PLAN OF TREATMENT Next Appt Details 3 Weeks Reason: Provider Name:Serg Ledbetter, 10:45:00 AM, [address], , [place], [address], Insurance Providers Payer Name Payer Address Payer Phone Insured Name Patient Relati onship to Insured Coverage Start Date Coverage End Date [facility] [address] [facility] [phone] [place] [employer] [address] [facility] [address] [place] self
--- OUTSIDE RECORDS SUMMARY | 2021-06-02 16:54 | CCD ---
Author Author [facility] Organization [facility] Address Unknown Phone Unavailable Care Team Providers Care Radiologic Technologist Mammogram Name Role Phone Serg Ledbetter Unavailable PROBLEMS Type Condition ICD9-CM Code [id number] Code Onset Dates Condition S tatus W/U Status Risk SNOMED Code Notes Problem PVD (peripheral vascular disease) I73.9 Active confirmed 620380719 Problem Osteomyelitis of foot, left, acute M86.172 Activ e confirmed 73796197 Problem Gastroesophageal reflux disease without esophagitis K21.9 Active confirmed 835111127 Problem Non-pressure chronic ulcer o f other part of right foot with fat layer exposed L97.512 Active confirmed 220988217 Problem Chronic ulcer of right great toe with fat layer exposed L97.512 Active confirmed 932033281 Problem Infection due to Enterobacter cloacae A49.8 Ac tive confirmed 003042735 Problem 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 Active confirmed 636663107 Problem Charcot foot due to diabetes mellitus E11.610 Ac tive confirmed 312479217 Problem Streptococcal infection, unspecified site A49.1 Active confirmed 168243819 Problem Non-pressure chronic ulcer o f other part of left foot limited to breakdown of skin L97.521 Active confirmed 794420899 Problem Suspected deep tissue injury of unknown depth of heel S90.30XA Active confirmed 582343850 Problem 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 Active confirmed 486216946 Problem Resistance to vancomycin Z16.21 Active confirmed 31119256 Problem Non-pressure chronic ulcer o f other part of left foot with fat layer exposed L97.522 Active confirmed 463976353 Problem Chronic multifocal osteomyelitis of right foot M86 .371 Active confirmed 953045129 Problem Pain in right foot M79.671 Active confirmed 35768252 Problem Ischemic ulcer of toe of right foot with necrosis of bone L97.514 Active confirmed 524030148 Problem Pain of left foot M79.672 Active confirmed 3 34815123641565 Problem 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 of muscle L97.413 Active confirmed 060102855 Problem Type 2 diabetes mellitus with foot ulcer E11.621 Active confirmed 806077853 Problem Diabetic peripheral neuropathy E11.42 Active confir med 868266074 Problem 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 L97.414 Active confirmed 548156100 Problem 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 Active confirmed 518242440 Problem Ulcer of left heel, with fat layer exposed L97.422 Active confirmed 363963992 Problem Non-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 and 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 L97.412 Active confirmed 218027230 Problem Non-pressure chronic ulcer o f other part of left foot with unspecified severity L97.529 Active confirmed 818492790 Problem Pressure injury of right heel, stage 2 L89.612 A ctive confirmed 647783716 Problem 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 with unspecified severity L97.429 Active confirmed Problem Postoperative wound dehiscence, subsequent encounter T81.31XD Active confirmed 116180436 Problem 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 Active confirmed 114135926 Problem Deep tissue injury T14.8 Active confirmed 2 30595434 Problem Chronic venous hypertension (idiopathic) with ulcer of left lower extremity I87.312 Active confirmed 947818512703542 Problem Pseudomonas aeruginosa infection A49.8 Active conf irmed 24598405 Problem Abrasion of left heel, initial encounter S90.812A Active confirmed 347062650 Problem 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 L97.422 Active confirmed 412412206 Problem Postoperative dehiscence of skin wound, initial encounter T81.31XA Active confirmed 796173585 Problem Non-pressure ulcer of left lower extremity L97.929 Active confirmed 40184469 Problem Deep tissue injury T14.8XXA Active confirmed 671942712 ALLERGIES Allergen (clinical drug ingredient) Drug/Non Drug Allergy do cumented on EMR Reaction Allergy Type Onset Date Status Codeine Phosphate([facility] Code:[address]-78) put pt in coma D rug Allergy Active celecoxib Celebrex([facility] Code:[address]-57) purple skin,itchy Drug Al lergy Active ENCOUNTERS from 1955 to 2021-04-09 Encounter Location Date Provider Diagnosis [facility] Wound Care [address] [phone] [place] [address] Mar, Serg Ledbetter Type 2 diabetes mellitus [...] Unknown Pentecostal: Question Answer Notes Pentecostal No gnosticism beliefs that would impact health care; no gnosticism preference BMI Care Goal Follow-Up Question Answer Notes Above Normal BMI Follow-Up Dietary management educatio n, guidance, and counseling Tobacco Use: Question Answer Notes Are you a: never smoker REASON FOR REFERRAL No Information VITAL SIGNS Weight 247 lbs Mar, Height 5'4" in Mar, BMI 42.39 kg/m2 Mar, Heart Rate 73 /min Mar, Respiratory Rate 16 /min Mar, Temperature 98.3 degrees Fahrenheit Mar, Oximetry 95 Mar, Blood pressure systolic 144 mm Hg Mar, Blood pressure diastolic 66 mm Hg Mar, MEDICATIONS Medication SIG (Take, [...] before lunch, 16 units before dinner Active [place] 5-325 MG 1 tablet as needed Orally [...] Medication: 4% Lidocaine topical cream (Anecream) 5gm 2021-04-02 N/A RESULTS No Results REASON FOR VISIT . BLE wounds MEDICAL (GENERAL) HISTORY Type Description [...] une 2015 Hospitalization History illness, sent to [facility] 06/2014 Hospitalization History pacreatitis and brain [...] Details 1 Week Reason: Provider Name:Serg Ledbetter, 10:45:00 AM, [address], , [place], [address], Insurance Providers Payer Name Payer Address Payer Phone Insured Name Patient Relati onship to Insured Coverage Start Date Coverage End Date [facility] [address] [facility] [phone] [place] [employer] [address] [facility] [address] [place] self
--- OUTSIDE RECORDS SUMMARY | 2021-06-02 16:54 | CCD ---
Author Author [facility] Organization [facility] Address Unknown Phone Unavailable Care Team Providers Care Assistant Paralegal Name Role Phone Serg Ledbetter Unavailable PROBLEMS Type Condition ICD9-CM Code [id number] Code Onset Dates Condition S tatus W/U Status Risk SNOMED Code Notes Problem PVD (peripheral vascular disease) I73.9 Active confirmed 550453609 Problem Osteomyelitis of foot, left, acute M86.172 Activ e confirmed 07062860 Problem Gastroesophageal reflux disease without esophagitis K21.9 Active confirmed 808504376 Problem Non-pressure chronic ulcer o f other part of right foot with fat layer exposed L97.512 Active confirmed 756231957 Problem Chronic ulcer of right great toe with fat layer exposed L97.512 Active confirmed 660540541 Problem Infection due to Enterobacter cloacae A49.8 Ac tive confirmed 658896101 Problem 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 Active confirmed 563563316 Problem Charcot foot due to diabetes mellitus E11.610 Ac tive confirmed 484758874 Problem Streptococcal infection, unspecified site A49.1 Active confirmed 736990905 Problem Non-pressure chronic ulcer o f other part of left foot limited to breakdown of skin L97.521 Active confirmed 370048555 Problem Suspected deep tissue injury of unknown depth of heel S90.30XA Active confirmed 780536098 Problem 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 Active confirmed 363069555 Problem Resistance to vancomycin Z16.21 Active confirmed 90233081 Problem Non-pressure chronic ulcer o f other part of left foot with fat layer exposed L97.522 Active confirmed 024773447 Problem Chronic multifocal osteomyelitis of right foot M86 .371 Active confirmed 019541802 Problem Pain in right foot M79.671 Active confirmed 56088821 Problem Ischemic ulcer of toe of right foot with necrosis of bone L97.514 Active confirmed 887172585 Problem Pain of left foot M79.672 Active confirmed 3 69549143523362 Problem 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 of muscle L97.413 Active confirmed 491266913 Problem Type 2 diabetes mellitus with foot ulcer E11.621 Active confirmed 593162981 Problem Diabetic peripheral neuropathy E11.42 Active confir med 675777505 Problem 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 L97.414 Active confirmed 491867703 Problem 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 Active confirmed 239399984 Problem Ulcer of left heel, with fat layer exposed L97.422 Active confirmed 537216917 Problem Non-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 and 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 L97.412 Active confirmed 872569411 Problem Non-pressure chronic ulcer o f other part of left foot with unspecified severity L97.529 Active confirmed 618907489 Problem Pressure injury of right heel, stage 2 L89.612 A ctive confirmed 646511874 Problem 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 with unspecified severity L97.429 Active confirmed Problem Postoperative wound dehiscence, subsequent encounter T81.31XD Active confirmed 443972750 Problem 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 Active confirmed 862270439 Problem Deep tissue injury T14.8 Active confirmed 2 64652123 Problem Chronic venous hypertension (idiopathic) with ulcer of left lower extremity I87.312 Active confirmed 033818242980791 Problem Pseudomonas aeruginosa infection A49.8 Active conf irmed 27039659 Problem Abrasion of left heel, initial encounter S90.812A Active confirmed 957479715 Problem 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 L97.422 Active confirmed 434913775 Problem Postoperative dehiscence of skin wound, initial encounter T81.31XA Active confirmed 688137727 Problem Non-pressure ulcer of left lower extremity L97.929 Active confirmed 82224923 Problem Deep tissue injury T14.8XXA Active confirmed 842992417 ALLERGIES Allergen (clinical drug ingredient) Drug/Non Drug Allergy do cumented on EMR Reaction Allergy Type Onset Date Status Codeine Phosphate([facility] Code:[address]-47) put pt in coma D rug Allergy Active celecoxib Celebrex([facility] Code:[address]-42) purple skin,itchy Drug Al lergy Active ENCOUNTERS from 1955 to 2021-03-29 Encounter Location Date Provider Diagnosis [facility] Wound Care [address] [phone] [place] [address] Mar, Serg Ledbetter Type 2 diabetes mellitus [...] History Observation Description Sex Assigned At Unknown Sikh: Question Answer Notes Sikh No jain beliefs that would impact health care; no jain preference BMI Care Goal Follow-Up Question Answer Notes Above Normal BMI Follow-Up Dietary management educatio n, guidance, and counseling Tobacco Use: Question Answer Notes Are you a: never smoker REASON FOR REFERRAL No Information VITAL SIGNS Weight 247 lbs Mar, Height 5'4" in Mar, BMI 42.39 kg/m2 Mar, Heart Rate 69 /min Mar, Respiratory Rate 16 /min Mar, Temperature 98.4 degrees Fahrenheit Mar, Oximetry 93 Mar, Blood pressure systolic 115 mm Hg Mar, Blood pressure diastolic 66 [...] 1% evendays once in left eye Active [place] 5-325 MG 1 tablet as needed Orally [...] evening Ophthalmic Once a day Active PROCEDURES from 1955 to 2021-03-29 Procedure Date Ordered Result Body Site Medication: Silver Nitrate Stick topically 2021-03-24 N/A Medication: 4% Lidocaine topical cream (Anecream) 5gm 2021-03-24 N/A RESULTS No Results REASON FOR VISIT [...] une 2015 Hospitalization History illness, sent to [facility] 06/2014 Hospitalization History pacreatitis and [...] Details 1 Week Reason: Provider Name:Serg Ledbetter, 03:00:00 PM, [address], , [place], [address], Provider Name:Serg Ledbetter, 11:00:00 AM, [address], , [place], [address], Insurance Providers Payer Name Payer Address Payer Phone Insured Name Patient Relati onship to Insured Coverage Start Date Coverage End Date [employer]ICAID [employer] [address] [facility] [id number] [place] [facility] [address] [facility] [address] [place]
--- OUTSIDE RECORDS SUMMARY | 2021-06-02 16:57 | CCD ---
Author Author [facility] Address Unknown Phone Unavailable Care Team Providers Care Arterial Embalmer Name Role Phone Stephanie Murphy DO Unavailable Unavailable Stephanie Murphy DO Unavailable Unavailable Stephanie Murphy DO Unavailable Unavailable Jeffrey, Stephanie DO Unavailable Unavailable Jeffrey, Stephanie DO Unavailable Unavailable Jeffrey, Stephanie DO Unavailable Unavailable Jeffrey, Stephanie DO Unavailable Unavailable Jeffrey, Stephanie DO Unavailable Unavailable Jeffrey, Stephanie DO Unavailable Unavailable Jeffrey, Stephanie DO Unavailable Unavailable Jeffrey, Stephanie DO Unavailable Unavailable Jeffrey, Stephanie DO Unavailable Unavailable Jeffrey, Stephanie DO Unavailable Unavailable Jeffrey, Stephanie DO Unavailable Unavailable Jeffrey, Stephanie DO Unavailable Unavailable Jeffrey, Stephanie DO Unavailable Unavailable Jeffrey, Stephanie DO Unavailable Unavailable Jeffrey, Stephanie DO Unavailable Unavailable Jeffrey, Stephanie DO Unavailable Unavailable Jeffrey, Stephanie DO Unavailable Unavailable Jeffrey, Stephanie DO Unavailable Unavailable Jeffrey, Stephanie DO Unavailable Unavailable Jeffrey, Stephanie DO Unavailable Unavailable Jeffrey, Stephanie DO Unavailable Unavailable Jeffrey, Stephanie DO Unavailable Unavailable Jeffrey, Stephanie DO Unavailable Unavailable Jeffrey, Stephanie DO Unavailable Unavailable Jeffrey, Stephanie DO Unavailable Unavailable Jeffrey, Stephanie DO Unavailable Unavailable Jeffrey, Stephanie DO Unavailable Unavailable Jeffrey, Stephanie DO Unavailable Unavailable Jeffrey, Stephanie DO Unavailable Unavailable Jeffrey, Stephanie DO Unavailable Unavailable Jeffrey, Stephanie DO Unavailable Unavailable Jeffrey, Stephanie DO Unavailable Unavailable Jeffrey, Stephanie DO Unavailable Unavailable Jeffrey, Stephanie DO Unavailable Unavailable Jeffrey, Stephanie DO Unavailable Unavailable Jeffrey, Stephanie DO Unavailable Unavailable Jeffrey, Stephanie DO Unavailable Unavailable Jeffrey, Stephanie DO Unavailable Unavailable Jeffrey, Stephanie DO Unavailable Unavailable Jeffrey, Stephanie DO Unavailable Unavailable Jeffrey, Stephanie DO Unavailable Unavailable Jeffrey, Stephanie DO Unavailable Unavailable Jeffrey, Stephanie DO Unavailable Unavailable Jeffrey, Stephanie DO Unavailable Unavailable Jeffrey, Stephanie DO Unavailable Unavailable Jeffrey, Stephanie DO Unavailable Unavailable Jeffrey, Stephanie DO Unavailable Unavailable Jeffrey, Stephanie DO Unavailable Unavailable Jeffrey, Stephanie DO Unavailable Unavailable Jeffrey, Stephanie DO Unavailable Unavailable Jeffrey, Stephanie DO Unavailable Unavailable Jeffrey, Stephanie DO Unavailable Unavailable Jeffrey, Stephanie DO Unavailable Unavailable Jeffrey, Stephanie DO Unavailable Unavailable Jeffrey, Stehpanie DO Unavailable Unavailable Jeffrey, Stephanie DO Unavailable Unavailable Jeffrey, Stephanie DO Unavailable Unavailable Jeffrey, Stephanie DO Unavailable Unavailable Jeffrey, Stephanie DO Unavailable Unavailable Jeffrey, Stephanie DO Unavailable Unavailable Jeffrey, Stephanie DO Unavailable Unavailable Jeffrey, Stephanie DO Unavailable Unavailable Jeffrey, Stephanie DO Unavailable Unavailable Jeffrey, Stephanie DO Unavailable Unavailable Jeffrey, Stephanie DO Unavailable Unavailable Jeffrey, Stephanie DO Unavailable Unavailable Jeffrey, Stephanie DO Unavailable Unavailable Jeffrey, Stephanie DO Unavailable Unavailable Jeffrey, Stephanie DO Unavailable Unavailable Jeffrey, Stephanie DO Unavailable Unavailable Jeffrey, Stephanie DO Unavailable Unavailable MAJAK, R YANDY DPM Unavailable Unavailable MAJAK, R YANDY DPM Unavailable Unavailable MAJAK, R YANDY DPM Unavailable Unavailable MAJAK, R YANDY DPM Unavailable Unavailable MAJAK, R YANDY DPM Unavailable Unavailable MAJAK, R YANDY DPM Unavailable Unavailable MAJAK, R YANDY DPM Unavailable Unavailable MAJAK, R YANDY DPM Unavailable Unavailable MAJAK, R YANDY DPM Unavailable Unavailable MAJAK, R YANDY DPM Unavailable Unavailable MAJAK, R YANDY DPM Unavailable Unavailable MAJAK, R YANDY DPM Unavailable Unavailable MAJAK, R YANDY DPM Unavailable Unavailable MAJAK, R YANDY DPM Unavailable Unavailable MAJAK, R YANDY DPM Unavailable Unavailable MAJAK, R YANDY DPM Unavailable Unavailable MAJAK, R YANDY DPM Unavailable Unavailable MAJAK, R YANDY DPM Unavailable Unavailable MAJAK, R YANDY DPM Unavailable Unavailable MAJAK, R YANDY DPM Unavailable Unavailable MAJAK, R YANDY DPM Unavailable Unavailable MAJAK, R YANDY DPM Unavailable Unavailable MAJAK, R YANDY DPM Unavailable Unavailable MAJAK, R YANDY DPM Unavailable Unavailable MAJAK, R YANDY DPM Unavailable Unavailable MAJAK, R YANDY DPM Unavailable Unavailable MAJAK, R YANDY DPM Unavailable Unavailable MAJAK, R YANDY DPM Unavailable Unavailable MAJAK, R YANDY DPM Unavailable Unavailable MAJAK, R YANDY DPM Unavailable Unavailable MAJAK, R YANDY DPM Unavailable Unavailable Trickey, J Roseline PA Unavailable Unavailable Trickey, J Roseline PA Unavailable Unavailable Trickey, J Roseline PA Unavailable Unavailable Trickey, J Roseline PA Unavailable Unavailable Trickey, J Roseline PA Unavailable Unavailable Trickey, J Roseline PA Unavailable Unavailable Trickey, J Roseline PA Unavailable Unavailable Trickey, J Roseline PA Unavailable Unavailable Trickey, J Roseline PA Unavailable Unavailable Trickey, J Roseline PA Unavailable Unavailable Trickey, J Roseline PA Unavailable Unavailable Trickey, J Roseline PA Unavailable Unavailable Trickey, J Roseline PA Unavailable Unavailable Trickey, J Roseline PA Unavailable Unavailable Trickey, J Roseline PA Unavailable Unavailable Trickey, J Roseline PA Unavailable Unavailable Trickey, J Roseline PA Unavailable Unavailable Trickey, J Roseline PA Unavailable Unavailable Trickey, J Roseline PA Unavailable Unavailable Trickey, J Roseline PA Unavailable Unavailable Trickey, J Roseline PA Unavailable Unavailable Trickey, J Roseline PA Unavailable Unavailable Trickey, J Roseline PA Unavailable Unavailable Trickey, J Roseline PA Unavailable Unavailable Trickey, J Roseline PA Unavailable Unavailable Trickey, J Roseline PA Unavailable Unavailable Trickey, J Roseline PA Unavailable Unavailable Trickey, J Roseline PA Unavailable Unavailable Trickey, J Roseline PA Unavailable Unavailable Trickey, J Roseline PA Unavailable Unavailable Trickey, J Roseline PA Unavailable Unavailable Trickey, J Roseline PA Unavailable Unavailable Trickey, J Roseline PA Unavailable Unavailable Trickey, J Roseline PA Unavailable Unavailable Trickey, J Roseline PA Unavailable Unavailable Trickey, J Roseline PA Unavailable Unavailable Trickey, J Roseline PA Unavailable Unavailable Trickey, J Roseline PA Unavailable Unavailable Trickey, J Roseline PA Unavailable Unavailable Trickey, J Roseline PA Unavailable Unavailable Trickey, J Roseline PA Unavailable Unavailable Trickey, J Roseline PA Unavailable Unavailable Trickey, J Roseline PA Unavailable Unavailable Trickey, J Roseline PA Unavailable Unavailable Trickey, J Roseline PA Unavailable Unavailable Trickey, J Roseline PA Unavailable Unavailable Trickey, J Roseline PA Unavailable Unavailable Trickey, J Roseline PA Unavailable Unavailable Trickey, J Roseline PA Unavailable Unavailable Re-disclosure Warning The records that you are about to access may contain information from federally-assisted alcohol or drug abuse programs. If such information is present, then the following federally mandated warning applies: This information has been disclosed to you from records protected by federal confidentiality rules (42 CFR part 2). The federal rules prohibit you from making any further disclosure of this information unless further disclosure is expressly permitted by the written consent of the person to whom it pertains or as otherwise permitted by 42 CFR part 2. A general authorization for the release of medical or other information is NOT sufficient for this purpose. The Federal rules restrict any use of the information to criminally investigate or prosecute any alcohol or drug abuse patient.The records that you are about to access may contain highly sensitive health information, the redisclosure of which is protected by Article 27-F of the [facility] Public Health law. If you continue you may have access to information: Regarding HIV / AIDS; Provided by facilities licensed or operated by the [facility] Office of Mental Health; or Provided by the [facility] Office for People With Developmental Disabilities. If such information is present, then the following [facility] mandated warning applies: This information has been disclosed to you from confidential records which are protected by state law. State law prohibits you from making any further disclosure of this information without the specific written consent of the person to whom it pertains, or as otherwise permitted by law. Any unauthorized further disclosure in violation of state law may result in a fine or halfway sentence or both. A general authorization for the release of medical or other information is NOT sufficient authorization for further disc losure. Family History Family Member Name Family Member Gender Family Member Status Date o f Status Description Data Source(s) Unknown Unknown Problem [facility] ([facility], ) Encounters Encounter Providers Location Date Indications Data Source(s ) Outpatient [address] [place] [id number] 05/26/2021 12:00:00 AM EDT eCW1 ([facility]) Outpatient Attender: Stephanie Nelson 05/19 11:00:00 AM EDT [facility] ([facility] ) Outpatient [address] [place] [phone] 05/12/2021 12:00:00 AM EDT eCW1 ([facility]) Outpatient [address] [place] [id number] 04/28/2021 12:00:00 AM EDT eCW1 ([facility]) Outpatient Attender: Roseline SHERMAN [facility] 04/27/2021 02:00:00 PM EDT MEDENT ([facility] ) ([id number]) For Template Gunn [address] [place] [id number] 04/07/2021 12:00:00 AM EDT eCW1 ([facility]) ([id number]) For Template Gunn [address] [place] [phone] 04/02/2021 12:00:00 AM EDT eCW1 ([facility]) [place] [address] [facility] [address] 03/26/2021 12:00:00 AM EDT eCW1 ([facility]) [place] [address] [facility] [address] 03/24/2021 12:00:00 AM EDT [facility]1 [facility]) ([id number]) For Template Gunn [address] [place] [address] 03/17/2021 12:00:00 AM EDT eCW1 ([facility]) ([id number]) For Template Gunn [address] [place] [address] 03/04/2021 12:00:00 AM EDT eCW1 ([facility]) [place]patient [address] [facility] [address] 02/24/2021 12:00:00 AM EDT eCW1 ([facility]) [place] [address] [facility] [address] 02/17/2021 12:00:00 AM EDT [facility]CW1 [facility] [place] [address] [facility] [address] 02/11/2021 12:00:00 AM EDT eCW1 ([facility]) ([id number]) For Template Gunn [facility] [place] [address] 02/03/2021 12:00:00 AM EDT eCW1 ([facility]) Unknown [address] [facility] [place] [address] 02/03/2021 12:00:00 AM EDT eCW1 ([facility]) Outpatient [address] [facility] [place] [address] 01/28/2021 12:00:00 AM EDT eCW1 ([facility]) Outpatient [address] [facility] [place] [address] 01/21/2021 12:00:00 AM EDT [facility]) ([id number]) For Template Gunn [address] [place] [address] 01/07/2021 12:00:00 AM EDT eCW1 ([facility]) [place] [address] [facility] [address] 12/31/2020 12:00:00 AM EDT eCW1 ([facility]) ([id number]) For Template Gunn [address] [place] [address] 12/24/2020 12:00:00 AM EDT eCW1 ([facility]) [place] [address] [facility] [address] 2020 12:00:00 AM EDT [facility]1 [facility] Outpatient [address] [facility] [address] 12/21/2020 12:00:00 AM EDT [facility]CW1 [facility]) Outpatient [address] [facility] [address] 12/18/2020 12:00:00 AM EDT eCW1 [facility]) Outpatient [address] [facility] [address] 12/17/2020 12:00:00 AM EDT eCW1 [facility]) ([id number]) For Template Gunn [address] [place] [address] 12/17/2020 12:00:00 AM EDT eCW1 ([facility]) Outpatient [address] [facility] [place] [address] 12/15/2020 12:00:00 AM EDT eCW1 ([facility]) [place]patient [address] [facility] [address] 12/11/2020 12:00:00 AM EDT [facility]CW1 [facility]) ([id number]) For Template Gunn [address] [place] [address] 12/10/2020 12:00:00 AM EDT eCW1 ([facility]) Outpatient [address] [facility] [address] 12/10/2020 12:00:00 AM EDT eCW1 ([facility]) Outpatient [address] [facility] [id number] 12/09/2020 12:00:00 AM EDT eCW1 ([facility]) Outpatient [address] [facility] [address] 12/08/2020 12:00:00 AM EDT eCW1 [facility]) Office Visit Attender: YANDY MONTELONGO [facility] Office 11/13 01:00:00 PM EDT [facility] ([facility] Outpatient [address] [facility] [address] 12/07/2020 12:00:00 AM EDT eCW1 ([facility]) Outpatient [address] [facility] [address] 12/04/2020 12:00:00 AM EDT eCW1 ([facility]) Outpatient [address] [facility] [id number] 12/03/2020 12:00:00 AM EDT eCW1 ([facility]) ([id number]) For Template [facility] [address] [place] [address] 12/03/2020 12:00:00 AM EDT eCW1 ([facility]) Outpatient [address] [facility] [address] 12/02/2020 12:00:00 AM EDT eCW1 ([facility]) Outpatient [address] [facility] [address] 12/01/2020 12:00:00 AM EDT eCW1 ([facility]) [place] [address] [facility] [address] 11/30/2020 12:00:00 AM EDT eCW1 ([facility]) [place]patient [address] [facility] [address] 11/27/2020 12:00:00 AM EDT eCW1 ([facility]) Outpatient Attender: Stephanie Nelson 11/26 02:00:00 PM EDT MED[facility] ([facility] ) ([id number]) For Template [place] [address] [place] [address] 11/26/2020 12:00:00 AM EDT eCW1 ([facility]) [place]patient [address] [facility] [address] 11/26/2020 12:00:00 AM EDT eCW1 ([facility]) [place] [address] [facility] [address] 11/25/2020 12:00:00 AM EDT eCW1 ([facility]) Outpatient [address] [facility] [address] 11/24/2020 12:00:00 AM EDT eCW1 ([facility]) Unknown [address] [place] [address], [place] [address] 11/24/2020 12:00:00 AM EDT eCW1 ([facility]) Outpatient [address] [facility] [address] 11/23/2020 12:00:00 AM EDT eCW1 ([facility]) Outpatient [address] [place] [address] [place] [address] 11/20/2020 12:00:00 AM EDT eCW1 ([facility]) Outpatient [address] [place] [address] [place] [address] 11/19/2020 12:00:00 AM EDT eCW1 ([facility]) ([id number]) For Template Gunn [address] [place] [address], [place] [address] 11/18/2020 12:00:00 AM EDT eCW1 ([facility]) Outpatient [address] [facility] [address] 11/18/2020 12:00:00 AM EDT eCW1 ([facility]) Outpatient [address] [facility] [address] 11/17/2020 12:00:00 AM EDT eCW1 ([facility]) Outpatient [address] [facility] [address] 11/16/2020 12:00:00 AM EDT eCW1 ([facility]) Outpatient [address] [facility] [address] 11/13/2020 12:00:00 AM EDT eCW1 ([facility]) ([id number]) For Template Gunn [address] [place] [address] 11/12/2020 12:00:00 AM EDT eCW1 ([facility]) Outpatient [address] [facility] [address] 11/12/2020 12:00:00 AM EDT eCW1 ([facility]) Outpatient [address] [facility] [address] 11/11/2020 12:00:00 AM EDT eCW1 ([facility]) Outpatient [address] [facility] [address] 11/10/2020 12:00:00 AM EDT eCW1 ([facility]) Outpatient [address] [facility] [address] 11/09/2020 12:00:00 AM EDT eCW1 ([facility]) Outpatient [address] [facility] [address] 11/06/2020 12:00:00 AM EDT eCW1 ([facility]) ([id number]) For Template Gunn [address] [place] [address] 11/05/2020 12:00:00 AM EDT eCW1 ([facility]) Out[place] [address] [facility] [address] 11/05/2020 12:00:00 AM EDT eCW1 ([facility]) Out[place] [address] [facility] [address] 11/04/2020 12:00:00 AM EDT eCW1 ([facility]) Outpatient [address] [facility] [address] 11/03/2020 12:00:00 AM EDT eCW1 ([facility]) Outpatient [address] [facility] [address] 11/02/2020 12:00:00 AM EDT eCW1 ([facility]) [place]patient [address] [facility] [address] 10/30/2020 12:00:00 AM EDT eCW1 ([facility]) ([id number]) For Template Gunn [address] [place] [address] 10/29/2020 12:00:00 AM EDT eCW1 ([facility]) Outpatient [address] [facility] [address] 10/29/2020 12:00:00 AM EDT eCW1 ([facility]) Outpatient [address] [facility] [address] 10/27/2020 12:00:00 AM EDT eCW1 ([facility]) Unknown [address] [facility] [address] 10/27/2020 12:00:00 AM EDT eCW1 ([facility]) Outpatient [address] [facility] [address] 10/21/2020 12:00:00 AM EST [facility] [place] [address] [facility] [address] 10/21/2020 12:00:00 AM EST eCW1 ([facility]) Outpatient [address] [facility] [address] 10/14/2020 12:00:00 AM EST eCW1 ([facility]) Office Visit Attender: YANDY MONTELONGO [facility] Office 09/15 09:45:00 AM EST [facility] ([facility] ([id number]) For Template Gunn [address] [place] [address] 10/07/2020 12:00:00 AM EST eCW1 ([facility]) Outpatient Attender: Stephanie Nelson 09/24 12:00:00 PM EST [facility] ([facility] ) ([id number]) For Template Gunn [address] [place] [address] 09/23/2020 12:00:00 AM EST eCW1 ([facility]) Office Visit Attender: YANDY MONTELONGO [facility] 12/2020 09:45:00 AM EST [facility] ([facility] Outpatient Attender: YANDY MONTELONGO [facility] 08/15 09:45:00 AM EST [facility] ([facility] Unknown [address] [facility] [id number] 09/11/2020 12:00:00 AM EST eCW1 ([facility]) Unknown [address] [facility] [id number] 09/07/2020 12:00:00 AM EST eCW1 ([facility]) ([id number]) For Template Gunn [facility] [place] [address] 08/31/2020 12:00:00 AM EST eCW1 ([facility]) Unknown [address] [facility] [address] 08/26/2020 12:00:00 AM EST [facility]CW1 ([facility]) Outpatient Attender: YANDY MONTELONGO [facility] 03/2021 09:15:00 AM EST [facility] ([facility] ([id number]) For Template Gunn [address] [place] [address] 08/19/2020 12:00:00 AM EST eCW1 ([facility]) ([id number]) For Template Gunn [address] [place] [address] 08/11/2020 12:00:00 AM EST eCW1 ([facility]) Outpatient [address] [facility] [address] 08/05/2020 12:00:00 AM EST eCW1 ([facility]) ([id number]) For Template Gunn [address] [place] [address] 07/28/2020 12:00:00 AM EST eCW1 ([facility]) Office Visit Attender: Roseline SHERMAN [facility] office - [facility] 07/23/2020 10:00:00 AM EST [facility] ([facility] ) ([id number]) For Template Gunn [address] [place] [address] 07/20/2020 12:00:00 AM EST eCW1 ([facility]) Unknown [address] [facility] [address] 07/13/2020 12:00:00 AM EST eCW1 ([facility]) Outpatient [facility] [address] 06/22/2020 12:00:00 AM EST eCW1 ([facility]) Outpatient Attender: Stephanie Nelson 06/19 01:15:00 PM EST [facility] ([facility] ) [place] [address] [facility] [place] [address] 06/16/2020 12:00:00 AM EST eCW1 ([facility]) [place] [address] [facility] [address] 06/16/2020 12:00:00 AM EST eCW1 ([facility]) ([id number]) For Template Gunn [address] [place] [address] 06/03/2020 12:00:00 AM EDT eCW1 ([facility]) ([id number]) For Template Gunn [address] [place] [address] 05/20/2020 12:00:00 AM EDT eCW1 ([facility]) Outpatient Attender: Roseline SHERMAN [facility] 04/16/2020 09:30:00 AM EDT MEDENT ([facility] ) Outpatient Attender: Stephanie Nelson 04/13 02:30:00 PM EDT MEDENT ([facility] ) Outpatient [id number] 04/08/2020 10:34:04 PM EDT [facility] Outpatient Attender: Roseline SHERMAN [facility] 04/07/2020 10:30:00 AM EDT MEDENT ([facility] bruno ) Outpatient SJP.J CARLOS-SJPCELESTINO 04/06/2020 12:00:00 AM EDT [facility] Immunizations Vaccine Date Status Description Data Source(s) COVID-19 VACCINE Dominic 11/13/2020 12:00:00 AM EDT completed [facility] Vaccine Series Complete: YESThis Data wa s Submitted to [facility] Via [employer]. Medications Medication Brand Name Start Date Product Form Dose Route Admi nistrative Instructions Pharmacy Instructions Status Indications Reaction Description Data Source(s) apixaban 5 MG Oral Tablet [Eliquis] Eliquis 11/26/2020 12:00:00 AM E DT ORAL active MEDENT ([facility]) Covid-19 vaccine, Unspecified 11/13/2020 12:00:00 AM EDT completed [facility] Medication administered onsite Clindamycin 150 MG Oral Capsule Clindamycin HCl 150 MG Clind amycin HCl 150 MG 08/11/2020 12:00:00 AM EST active Clindamycin HCl 150 MG eCW1 ([facility]) Clindamycin 150 MG Oral Capsule Clindamycin HCl 150 MG Clind amycin HCl 150 MG 08/11/2020 12:00:00 AM EST active Clindamycin HCl 150 MG eCW1 ([facility]) Clindamycin 150 MG Oral Capsule Clindamycin HCl 150 MG Clind amycin HCl 150 MG 08/11/2020 12:00:00 AM EST active Clindamycin HCl 150 MG eCW1 ([facility]) Clindamycin 150 MG Oral Capsule Clindamycin HCl 150 MG Clind amycin HCl 150 MG 08/11/2020 12:00:00 AM EST active Clindamycin HCl 150 MG eCW1 ([facility]) Clindamycin 150 MG Oral Capsule Clindamycin HCl 150 MG Clind amycin HCl 150 MG 08/11/2020 12:00:00 AM EST active Clindamycin HCl 150 MG eCW1 ([facility]) Clindamycin 150 MG Oral Capsule Clindamycin HCl 150 MG Clind amycin HCl 150 MG 08/11/2020 12:00:00 AM EST active Clindamycin HCl 150 MG eCW1 ([facility]) Clindamycin 150 MG Oral Capsule Clindamycin HCl 150 MG Clind amycin HCl 150 MG 08/11/2020 12:00:00 AM EST active Clindamycin HCl 150 MG eCW1 ([facility]) Clindamycin 150 MG Oral Capsule Clindamycin HCl 150 MG Clind amycin HCl 150 MG 08/11/2020 12:00:00 AM EST active Clindamycin HCl 150 MG eCW1 ([facility]) Clindamycin 150 MG Oral Capsule Clindamycin HCl 150 MG Clind amycin HCl 150 MG 08/11/2020 12:00:00 AM EST active Clindamycin HCl 150 MG eCW1 ([facility]) Clindamycin 150 MG Oral Capsule Clindamycin HCl 150 MG Clind amycin HCl 150 MG 08/11/2020 12:00:00 AM EST active Clindamycin HCl 150 MG eCW1 ([facility]) Clindamycin 150 MG Oral Capsule Clindamycin HCl 150 MG Clind amycin HCl 150 MG 08/11/2020 12:00:00 AM EST active Clindamycin HCl 150 MG eCW1 ([facility]) Clindamycin 150 MG Oral Capsule Clindamycin HCl 150 MG Clind amycin HCl 150 MG 08/11/2020 12:00:00 AM EST active Clindamycin HCl 150 MG eCW1 ([facility]) Clindamycin 150 MG Oral Capsule Clindamycin HCl 150 MG Clind amycin HCl 150 MG 08/11/2020 12:00:00 AM EST active Clindamycin HCl 150 MG eCW1 ([facility]) Clindamycin 150 MG Oral Capsule Clindamycin HCl 150 MG Clind amycin HCl 150 MG 08/11/2020 12:00:00 AM EST active Clindamycin HCl 150 MG eCW1 ([facility]) Clindamycin 150 MG Oral Capsule Clindamycin HCl 150 MG Clind amycin HCl 150 MG 08/11/2020 12:00:00 AM EST active Clindamycin HCl 150 MG eCW1 ([facility]) Clindamycin 150 MG Oral Capsule Clindamycin HCl 150 MG Clind amycin HCl 150 MG 08/11/2020 12:00:00 AM EST active Clindamycin HCl 150 MG eCW1 ([facility]) Clindamycin 150 MG Oral Capsule Clindamycin HCl 150 MG Clind amycin HCl 150 MG 08/11/2020 12:00:00 AM EST active Clindamycin HCl 150 MG eCW1 ([facility]) Clindamycin 150 MG Oral Capsule Clindamycin HCl 150 MG Clind amycin HCl 150 MG 08/11/2020 12:00:00 AM EST active Clindamycin HCl 150 MG eCW1 ([facility]) Clindamycin 150 MG Oral Capsule Clindamycin HCl 150 MG Clind amycin HCl 150 MG 08/11/2020 12:00:00 AM EST active Clindamycin HCl 150 MG eCW1 ([facility]) Clindamycin 150 MG Oral Capsule Clindamycin HCl 150 MG Clind amycin HCl 150 MG 08/11/2020 12:00:00 AM EST active Clindamycin HCl 150 MG eCW1 ([facility]) Clindamycin 150 MG Oral Capsule Clindamycin HCl 150 MG Clind amycin HCl 150 MG 08/11/2020 12:00:00 AM EST active Clindamycin HCl 150 MG eCW1 ([facility]) Clindamycin 150 MG Oral Capsule Clindamycin HCl 150 MG Clind amycin HCl 150 MG 08/11/2020 12:00:00 AM EST active Clindamycin HCl 150 MG eCW1 ([facility]) Clindamycin 150 MG Oral Capsule Clindamycin HCl 150 MG Clind amycin HCl 150 MG 08/11/2020 12:00:00 AM EST suspended Clindamycin HCl 150 MG eCW1 ([facility]) Clindamycin 150 MG Oral Capsule Clindamycin HCl 150 MG Clind amycin HCl 150 MG 08/11/2020 12:00:00 AM EST active Clindamycin HCl 150 MG eCW1 ([facility]) Clindamycin 150 MG Oral Capsule Clindamycin HCl 150 MG Clind amycin HCl 150 MG 08/11/2020 12:00:00 AM EST active Clindamycin HCl 150 MG eCW1 ([facility]) Clindamycin 150 MG Oral Capsule Clindamycin HCl 150 MG Clind amycin HCl 150 MG 08/11/2020 12:00:00 AM EST active Clindamycin HCl 150 MG eCW1 ([facility]) Clindamycin 150 MG Oral Capsule Clindamycin HCl 150 MG Clind amycin HCl 150 MG 08/11/2020 12:00:00 AM EST active Clindamycin HCl 150 MG eCW1 ([facility]) Clindamycin 150 MG Oral Capsule Clindamycin HCl 150 MG Clind amycin HCl 150 MG 08/11/2020 12:00:00 AM EST active Clindamycin HCl 150 MG eCW1 ([facility]) Clindamycin 150 MG Oral Capsule Clindamycin HCl 150 MG Clind amycin HCl 150 MG 08/11/2020 12:00:00 AM EST active Clindamycin HCl 150 MG eCW1 ([facility]) Clindamycin 150 MG Oral Capsule Clindamycin HCl 150 MG Clind amycin HCl 150 MG 08/11/2020 12:00:00 AM EST active Clindamycin HCl 150 MG eCW1 ([facility]) Clindamycin 150 MG Oral Capsule Clindamycin HCl 150 MG Clind amycin HCl 150 MG 08/11/2020 12:00:00 AM EST active Clindamycin HCl 150 MG eCW1 ([facility]) Clindamycin 150 MG Oral Capsule Clindamycin HCl 150 MG Clind amycin HCl 150 MG 08/11/2020 12:00:00 AM EST active Clindamycin HCl 150 MG eCW1 ([facility]) Clindamycin 150 MG Oral Capsule Clindamycin HCl 150 MG Clind amycin HCl 150 MG 08/11/2020 12:00:00 AM EST active Clindamycin HCl 150 MG eCW1 ([facility]) Clindamycin 150 MG Oral Capsule Clindamycin HCl 150 MG Clind amycin HCl 150 MG 08/11/2020 12:00:00 AM EST active Clindamycin HCl 150 MG eCW1 ([facility]) Clindamycin 150 MG Oral Capsule Clindamycin HCl 150 MG Clind amycin HCl 150 MG 08/11/2020 12:00:00 AM EST active Clindamycin HCl 150 MG eCW1 ([facility]) Clindamycin 150 MG Oral Capsule Clindamycin HCl 150 MG Clind amycin HCl 150 MG 08/11/2020 12:00:00 AM EST active Clindamycin HCl 150 MG eCW1 ([facility]) Clindamycin 150 MG Oral Capsule Clindamycin HCl 150 MG Clind amycin HCl 150 MG 08/11/2020 12:00:00 AM EST active eCW1 ([facility]) Clindamycin 150 MG Oral Capsule Clindamycin HCl 150 MG Clind amycin HCl 150 MG 08/11/2020 12:00:00 AM EST active Clindamycin HCl 150 MG eCW1 ([facility]) Clindamycin 150 MG Oral Capsule Clindamycin HCl 150 MG Clind amycin HCl 150 MG 08/11/2020 12:00:00 AM EST active Clindamycin HCl 150 MG eCW1 ([facility]) Clindamycin 150 MG Oral Capsule Clindamycin HCl 150 MG Clind amycin HCl 150 MG 08/11/2020 12:00:00 AM EST active Clindamycin HCl 150 MG eCW1 ([facility]) Clindamycin 150 MG Oral Capsule Clindamycin HCl 150 MG Clind amycin HCl 150 MG 08/11/2020 12:00:00 AM EST active Clindamycin HCl 150 MG eCW1 ([facility]) Clindamycin 150 MG Oral Capsule Clindamycin HCl 150 MG Clind amycin HCl 150 MG 08/11/2020 12:00:00 AM EST active Clindamycin HCl 150 MG eCW1 ([facility]) Clindamycin 150 MG Oral Capsule Clindamycin HCl 150 MG Clind amycin HCl 150 MG 08/11/2020 12:00:00 AM EST active Clindamycin HCl 150 MG eCW1 ([facility]) Clindamycin 150 MG Oral Capsule Clindamycin HCl 150 MG Clind amycin HCl 150 MG 08/11/2020 12:00:00 AM EST active Clindamycin HCl 150 MG eCW1 ([facility]) Clindamycin 150 MG Oral Capsule Clindamycin HCl 150 MG Clind amycin HCl 150 MG 08/11/2020 12:00:00 AM EST active Clindamycin HCl 150 MG eCW1 ([facility]) Clindamycin 150 MG Oral Capsule Clindamycin HCl 150 MG Clind amycin HCl 150 MG 08/11/2020 12:00:00 AM EST active Clindamycin HCl 150 MG eCW1 ([facility]) Clindamycin 150 MG Oral Capsule Clindamycin HCl 150 MG Clind amycin HCl 150 MG 08/11/2020 12:00:00 AM EST active Clindamycin HCl 150 MG eCW1 ([facility]) Clindamycin 150 MG Oral Capsule Clindamycin HCl 150 MG Clind amycin HCl 150 MG 08/11/2020 12:00:00 AM EST active Clindamycin HCl 150 MG eCW1 ([facility]) Clindamycin 150 MG Oral Capsule Clindamycin HCl 150 MG Clind amycin HCl 150 MG 08/11/2020 12:00:00 AM EST active Clindamycin HCl 150 MG eCW1 ([facility]) Clindamycin 150 MG Oral Capsule Clindamycin HCl 150 MG Clind amycin HCl 150 MG 08/11/2020 12:00:00 AM EST active Clindamycin HCl 150 MG eCW1 ([facility]) Clindamycin 150 MG Oral Capsule Clindamycin HCl 150 MG Clind amycin HCl 150 MG 08/11/2020 12:00:00 AM EST active Clindamycin HCl 150 MG eCW1 ([facility]) Clindamycin 150 MG Oral Capsule Clindamycin HCl 150 MG Clind amycin HCl 150 MG 08/11/2020 12:00:00 AM EST suspended Clindamycin HCl 150 MG eCW1 ([facility]) Clindamycin 150 MG Oral Capsule Clindamycin HCl 150 MG Clind amycin HCl 150 MG 08/11/2020 12:00:00 AM EST active Clindamycin HCl 150 MG eCW1 ([facility]) Clindamycin 150 MG Oral Capsule Clindamycin HCl 150 MG Clind amycin HCl 150 MG 08/11/2020 12:00:00 AM EST active Clindamycin HCl 150 MG eCW1 ([facility]) Clindamycin 150 MG Oral Capsule Clindamycin HCl 150 MG Clind amycin HCl 150 MG 08/11/2020 12:00:00 AM EST active Clindamycin HCl 150 MG eCW1 ([facility]) Clindamycin 150 MG Oral Capsule Clindamycin HCl 150 MG Clind amycin HCl 150 MG 08/11/2020 12:00:00 AM EST active Clindamycin HCl 150 MG eCW1 ([facility]) Clindamycin 150 MG Oral Capsule Clindamycin HCl 150 MG Clind amycin HCl 150 MG 08/11/2020 12:00:00 AM EST active Clindamycin HCl 150 MG eCW1 ([facility]) Clindamycin 150 MG Oral Capsule Clindamycin HCl 150 MG Clind amycin HCl 150 MG 08/11/2020 12:00:00 AM EST active Clindamycin HCl 150 MG eCW1 ([facility]) Clindamycin 150 MG Oral Capsule Clindamycin HCl 150 MG Clind amycin HCl 150 MG 08/11/2020 12:00:00 AM EST active Clindamycin HCl 150 MG eCW1 ([facility]) Clindamycin 150 MG Oral Capsule Clindamycin HCl 150 MG Clind amycin HCl 150 MG 08/11/2020 12:00:00 AM EST active Clindamycin HCl 150 MG eCW1 ([facility]) Clindamycin 150 MG Oral Capsule Clindamycin HCl 150 MG Clind amycin HCl 150 MG 08/11/2020 12:00:00 AM EST active Clindamycin HCl 150 MG eCW1 ([facility]) Clindamycin 150 MG Oral Capsule Clindamycin HCl 150 MG Clind amycin HCl 150 MG 08/11/2020 12:00:00 AM EST active Clindamycin HCl 150 MG eCW1 ([facility]) Clindamycin 150 MG Oral Capsule Clindamycin HCl 150 MG Clind amycin HCl 150 MG 08/11/2020 12:00:00 AM EST active Clindamycin HCl 150 MG eCW1 ([facility]) Clindamycin 150 MG Oral Capsule Clindamycin HCl 150 MG Clind amycin HCl 150 MG 08/11/2020 12:00:00 AM EST active Clindamycin HCl 150 MG eCW1 ([facility]) Clindamycin 150 MG Oral Capsule Clindamycin HCl 150 MG Clind amycin HCl 150 MG 08/11/2020 12:00:00 AM EST active Clindamycin HCl 150 MG eCW1 ([facility]) Clindamycin 150 MG Oral Capsule Clindamycin HCl 150 MG Clind amycin HCl 150 MG 08/11/2020 12:00:00 AM EST active Clindamycin HCl 150 MG eCW1 ([facility]) Clindamycin 150 MG Oral Capsule Clindamycin HCl 150 MG Clind amycin HCl 150 MG 08/11/2020 12:00:00 AM EST active Clindamycin HCl 150 MG eCW1 ([facility]) Clindamycin 150 MG Oral Capsule Clindamycin HCl 150 MG Clind amycin HCl 150 MG 08/11/2020 12:00:00 AM EST active Clindamycin HCl 150 MG eCW1 ([facility]) Clindamycin 150 MG Oral Capsule Clindamycin HCl 150 MG Clind amycin HCl 150 MG 08/11/2020 12:00:00 AM EST active Clindamycin HCl 150 MG eCW1 ([facility]) Clindamycin 150 MG Oral Capsule Clindamycin HCl 150 MG Clind amycin HCl 150 MG 08/11/2020 12:00:00 AM EST active Clindamycin HCl 150 MG eCW1 ([facility]) Clindamycin 150 MG Oral Capsule Clindamycin HCl 150 MG Clind amycin HCl 150 MG 08/11/2020 12:00:00 AM EST active Clindamycin HCl 150 MG eCW1 ([facility]) Clindamycin 150 MG Oral Capsule Clindamycin HCl 150 MG Clind amycin HCl 150 MG 08/11/2020 12:00:00 AM EST active Clindamycin HCl 150 MG eCW1 ([facility]) Clindamycin 150 MG Oral Capsule Clindamycin HCl 150 MG Clind amycin HCl 150 MG 08/11/2020 12:00:00 AM EST active Clindamycin HCl 150 MG eCW1 ([facility]) Clindamycin 150 MG Oral Capsule Clindamycin HCl 150 MG Clind amycin HCl 150 MG 08/11/2020 12:00:00 AM EST active Clindamycin HCl 150 MG eCW1 ([facility]) Clindamycin 150 MG Oral Capsule Clindamycin HCl 150 MG Clind amycin HCl 150 MG 08/11/2020 12:00:00 AM EST active Clindamycin HCl 150 MG eCW1 ([facility]) Clindamycin 150 MG Oral Capsule Clindamycin HCl 150 MG Clind amycin HCl 150 MG 08/11/2020 12:00:00 AM EST active Clindamycin HCl 150 MG eCW1 ([facility]) Clindamycin 150 MG Oral Capsule Clindamycin HCl 150 MG Clind amycin HCl 150 MG 08/11/2020 12:00:00 AM EST active Clindamycin HCl 150 MG eCW1 ([facility]) Clindamycin 150 MG Oral Capsule Clindamycin HCl 150 MG Clind amycin HCl 150 MG 08/11/2020 12:00:00 AM EST active Clindamycin HCl 150 MG eCW1 ([facility]) Clindamycin 150 MG Oral Capsule Clindamycin HCl 150 MG Clind amycin HCl 150 MG 08/11/2020 12:00:00 AM EST active Clindamycin HCl 150 MG eCW1 ([facility]) BD Pen Needle/Mahsa 2ND Gen/32G X 5/32" 06/30/2020 12:00:00 AM ES T active [facility] Allergy 04/13/2020 12:00:00 AM EDT active MEDENT ([facility]) Furosemide 20 MG Oral Tablet Furosemide 04/13/2020 12:00:00 AM EDT active MEDENT ([facility]) torsemide 10 MG Oral Tablet Torsemide 04/13/2020 12:00:00 AM EDT ORAL completed MEDENT ([facility]) Insurance Providers Payer name Policy type / Coverage type Policy ID Covered green party ID Covered green party's relationship to gunn Policy Gunn Plan Information [employer] PLUS [id number] SP [id number] [place]/Umr (Old) Medigap Part B [id number] 3.3.227.99.4595.32933.0 Self [id number] Umr [place] Ppo Medigap Part B [id number] 2.16.840.1.978138.3.227.9 9.4595.15515.0 Self [id number] Umr [place] Ppo Medigap Part B [id number] 2.16.840.1.861853.3.227.9 9.4595.99696.0 Self [id number] [employer]/Umr (Old) Medigap Part B [id number] 2.16.840.1.07997 3.3.227.99.4595.72573.0 Self [id number] [place] Ppo Medigap Part B [id number] 2.16.840.1.720535.3.227.99.4595. 34912.0 Self [id number] [employer]/Umr (Old) Medigap Part B [id number] Self [id number] [place]/Umr (Old) Medigap Part B [id number] 2.16.840.1.50530 3.3.227.99.4595.54591.0 Self [id number] [employer]/Umr (Old) Medigap Part B [id number] 2.16.840.1.50291 3.3.227.99.4595.64843.0 Self [id number] [employer]/Umr (Old) Medigap Part B [id number] 2.16.840.1.60794 3.3.227.99.4595.62080.0 Self [id number] Umr [place] Ppo Medigap Part B [id number] 2.16.840.1.285148.3.227.9 9.4595.28204.0 Self [id number] [place]/Umr (Old) Medigap Part B [id number] 2.16.840.1.82768 3.3.227.99.4595.66954.0 Self [id number] [facility] [id number] SP [id number] Medicaid Medicaid [id number] 2.16.840.1.417025.3.227.99.4595.66045.0 Self [id number] [facility] Commercial [id number] 2.16.840.1.220565.3.227.99.4595.64765.0 Self [id number] [facility] Commercial [id number] 2.16.840.1.889644.3.227.99.4595.84643.0 Self [id number] Medicaid Medicaid [id number] 2.16.840.1.932931.3.227.99.4595.58073.0 Self [id number] [facility] Commercial [id number] 2.16.840.1.925431.3.227.99.4595.80464.0 Self [id number] [facility] COMMUNITY PLAN [facility] [id number] SP [id number] [facility] Commercial [id number] 2.16.840.1.296343.3.227.99.4595.53305.0 Self [id number] [facility] Commercial [id number] 2.16.840.1.197405.3.227.99.4595.64706.0 Self [id number] [facility] Commercial [id number] 2.16.840.1.366166.3.227.99.4595.69875.0 Self [id number] [facility] Commercial [id number] 2.16840.1.732774.3.227.99.4595.76802.0 Self [id number] [facility] Commercial [id number] Self [id number] [facility] Commercial [id number] 2.840.1.985817.3.227.99.4595.19754.0 Self [id number] [facility] Commercial [id number] 2.840.1.882364.3.227.99.4595.70222.0 Self [id number] Medicaid Medicaid [id number] 2.840.1.274272.3.227.99.4595.71453.0 Self [id number] [facility] Commercial [id number] 2.0.1.638622.3.227.99.4595.44668.0 Self [id number] Medicaid Medicaid [id number] 2.840.1.291344.3.227.99.4595.22106.0 Self [id number] [facility] PLS Commercial [id number] Self [id number] [facility] Commercial [id number] 2.840.1.633459.3.227.99.8646.87702.0 Self [id number] Medicaid Medigap Part B [id number] Self [id number] Medicaid Medigap Part B [id number] .840.1.799756.3.227.99.4595.248 08.0 Self [id number] Medicaid Medicaid [id number] 2.840.1.749486.3.227.99.4595.81975.0 Self [id number] Medicaid Medigap Part B [id number] 2.16.840.1.080108.3.227.99.4595.248 08.0 Self [id number] Medicare Natl Govt Servic Medicare Primary [id number] MRN.[id number] Self [id number] Medicare Natl Govt Servic Medicare Primary [id number] 2.16840.1.112869.3.227.99.4595.97388.0 Self [id number] Medicare Natl Govt Servic Medicare Primary [id number] 2.16840.1.789511.3.227.99.4595.03013.0 Self [id number] [facility] Commercial [id number] Self [id number] [facility] MEDICAID [id number] [facility] [id number] [facility] [id number] ANSI-Commercial [id number] ANSI-Commercial [id number] ANSI-Not a Secondary Insurance [id number] ANSI-Medicaid [id number] ANSI-Medicare Part B [id number] ANSI-Commercial [id number] ANSI-Medicaid [id number] ANSI-Commercial [id number] ANSI-Commercial [id number] ANSI-Commercial [id number] ANSI-Medicaid [id number] ANSI-Medicare Part B [id number] ANSI-Not a Secondary Insurance [id number] ANSI-Medicaid [id number] ANSI-Commercial [id number] ANSI-Commercial [id number] ANSI-Medicaid [id number] ANSI-Commercial [id number] ANSI-Not a Secondary Insurance [id number] ANSI-Medicaid [id number] ANSI-Medicare Part B [id number] ANSI-Commercial [id number] ANSI-Medicaid [id number] ANSI-Commercial [id number] ANSI-Medicaid [id number] ANSI-Not a Secondary Insurance [id number] ANSI-Medicare Part B [id number] ANSI-Commercial [id number] ANSI-Not a Secondary Insurance [id number] ANSI-Commercial [id number] ANSI-Commercial [id number] ANSI-Medicare Part B [id number] ANSI-Medicaid [id number] ANSI-Commercial [id number] ANSI-Medicaid [id number] ANSI-Not a Secondary Insurance [id number] ANSI-Medicare Part B [id number] ANSI-Commercial [id number] ANSI-Medicaid [id number] ANSI-Commercial [id number]-[id number]-[id number] ANSI-Medicaid [id number] ANSI-Commercial [id number]-[id number] Managed Care - [facility] P UNAVAILABLE S UNAVAILABLE Medicaid Dental S [id number] S [id number] D Managed Care [facility] P [id number] S [id number] Medicaid Medigap Part B [id number] MRN.[id number] Self [id number] Medicare Part B Medicare Primary [id number] MRN.[id number] Self [id number] Unhc Dual Complete Commercial [id number] Self [id number] ANSI-Commercial [id number]-hw9y-9339-[id number] [id number]-ci5g-4112-[id number] ANSI-Medicaid [id number] ANSI-Commercial [id number]-[id number]-[id number] [id number]-92bf-[id number] ANSI-Commercial [id number]-uywn-[id number] 98s5b620-9055-1mx5-tojk-[id number] ANSI-Not a Secondary Insurance [id number]-g0p0-d2918 [id number] oi005jd3-5tq1-1qs1-j3e2-[id number] ANSI-Medicaid [id number] ANSI-Medicare Part B [id number] ANSI-Medicare Part B [id number] ANSI-Medicaid [id number] ANSI-Commercial [id number]-[id number] ANSI-Commercial [id number]-[id number]-[id number] ANSI-Medicaid [id number] ANSI-Commercial [id number]-[id number] ANSI-Not a Secondary Insurance [id number] ANSI-Not a Secondary Insurance le8g8ep2-k571-0nix-219v-1j62v j2ouwp7 ia9s1oj1-a922-2yzu-252x-3y44zn8klbx1 ANSI-Commercial 292jzy8t-hww2-199c-qhw6-l4u088b1l4ya 376mln5i-crj1-400c-oez9-b1n929w3v3yo ANSI-Commercial [id number]-[id number]-[id number]-7465-3q4r-[id number] ANSI-Medicaid [id number] ANSI-Medicaid [id number] ANSI-Commercial 69m15si0-u7w4-9993-a62f-7875q4a12949 32v95qw4-d7j7-6097-k49r-8808j8e57098 ANSI-Medicare Part B [id number]-6m62-8c7z-[id number] 9ie7w015-auof-1i13-6e3i-13k89q175pf6 ANSI-Commercial 975h7m0l-tnew-9235-vksv-034oo9w50262 340z9w5s-vpsg-4048-drlt-448ed9o75723 ANSI-Medicaid [id number]-4983-7872-[id number] 688o179c-8231-0506-j109-25qhd874m1z8 ANSI-Commercial ob206377-895h-62r0-3am8-8h6r9xk4nsv1 ta976962-674u-87n2-0rq2-1a4u9zw4rxn8 ANSI-Commercial ue04k75g-35k0-1643-6p02-51k79a1ji390 ti21h31o-73y8-1539-0l69-87i20a1fg507 ANSI-Medicare Part B [id number]-4p1c-5cx7-dfah79c5ss97 p621s140-1djy-6u7z-4tb1-qujy74b7km77 ANSI-Not a Secondary Insurance 2qk5n1u8-z3w3-75y5-je89-7283y n8gpya9 4ao9d8g9-y6m7-61l2-mp23-4879dq3pqgl1 ANSI-Medicaid [id number]-[id number] r9g6w6q3-a287-43h4-47w0-688649927e7p ANSI-Commercial 4x862i6n-y798-9j38-9699-1p739002q004 1q700q2b-d137-5k63-0964-7r033236x091 ANSI-Medicaid [id number] ANSI-Commercial 3411g3p1-9x6r-41qr-ld7j-9yqzx5hp0ahc 9341g8i7-9r8g-98qm-fl1b-0hvgv4ye1fgt ANSI-Not a Secondary Insurance 4vtg20n1-6r6d-8l88-8516-t3258 eb3u18u 9lff62u5-8v7k-1p65-4389-j0206lk9s80w ANSI-Commercial 8u20w1v7-n9u6-43es-zwoo-35r7377rg429 7r89i6q5-b3r1-21jy-fxmz-31b0797gj619 ANSI-Medicare Part B [id number]-d765-8h0q-k72v-f66fas1z369i ANSI-Medicaid [id number]-[id number] 327x1g20-e7s2-0l6m-my19-n7zr53092cda ANSI-Medicare Part B [id number] 8fo98024-7033-44s2-y72q-2u4966s1p85e ANSI-Commercial 6589vs79-y53c-4y2x-kd03-9711m19o0e7i 2053nz29-j63x-9q3k-ao78-3755v35t3r8e ANSI-Medicaid [id number]-073x-[id number]-[id number] ww5384d2-302p-072k-8b0k-k63q7925t84w ANSI-Medicaid [id number]-[id number] b644b881-j56b-2z1l-[id number] ANSI-Not a Secondary Insurance h15q5mkj-1120-5z79-u2qx-z63p5 biv919z e93f0qqk-8581-0f95-v2uw-e62c0pul434l ANSI-Commercial h6228tm6-u3hp-4875-776m-6668u2595vh9 q5557yb0-e2pt-6021-799c-7317p3988dd8 ANSI-Commercial 9478r606-1248-257j-9gs3-6626916688yq 3597v896-7361-815p-4in8-9313153938qk ANSI-Not a Secondary Insurance mi4mcy31-i206-03qh-t61d-4lf1i 1ty6q30 lx1dyp46-p923-83jd-s06w-8nl0f8xb8w46 ANSI-Commercial 9996b389-k182-9ceh-6l17-b9nn668254g9 3636l234-w653-2gas-9e70-j9vf806528d3 ANSI-Commercial 9zy76g22-49r0-48az-oma3-j0ux067o7vee 6kv99r44-45c5-49pf-etm4-b3xp910a1rvb ANSI-Medicaid [id number]-[id number]-iji0-733o46r1h75y ANSI-Commercial 524l4jk4-73m3-0323-970e-181qp05m4wi8 356d7hj4-31f1-6484-458s-250kn39y3ei4 ANSI-Medicaid [id number]-[id number] 6id9f4by-6923-9dfd-1w04-68hq4870m76x ANSI-Medicare Part B [id number]-xj6t-b7r51zhx1m6l 6chm57hy-k991-9a58-pn7q-f3o08nqc3l5s ANSI-Medicaid [id number]-2o6u-277a-n5so-[id number] yd46poan-3f8l-085n-n8yv-[id number] ANSI-Commercial 75bxxpve-9x51-8b732m41-0j15-1837-55443fd79q06 17uxwcaj-3g36-9k121n90-8u42-3049-01181xo74j73 ANSI-Medicaid [id number]-dd2m-50987os96bi9 ANSI-Commercial 1d3626q2-uhd1-81vg-2678-8b5th77ej40g 2d6304f3-nmx3-95tw-9810-2x4km37yc46c ANSI-Medicare Part B [id number]-0554-[id number] ANSI-Commercial nm606l21-50z8-2y78-687g-xd243431xdf0 aq689s29-18d3-6o58-119k-sz045933gle3 ANSI-Not a Secondary Insurance 17913888-9cya-7199-1ppb-96gnu q2u3j55 34864722-7eru-9376-8wdd-91azce7b1x36 ANSI-Medicare Part B [id number]-57lk-zq18-v4d87957w0y8 soj81870-t03q-51ls-va39-g9d61193c5y6 ANSI-Commercial 1257o4mw-915d-15oz-k268-1h5vy6k71nc1 4608v4pg-399n-01md-s536-2l0fp4d35fw2 ANSI-Medicaid [id number]-2o6m-478b-k631-[id number] ANSI-Medicaid [id number]-31ja-025i-rf5o-7ewv0k8g99d5 c7d89dxa-20bi-069g-od6b-6eaw1o2u94f8 ANSI-Commercial 5119ts90-7770-5x05-9a4u-1iy96us6277i 3697uu05-2710-7f68-3x3u-0pg28dl8635d ANSI-Commercial s5f0b6cp-1g8m-69e4-p18y-lt2289h01877 w1j0j5wt-3l9r-17o3-z56c-kc9467w92608 ANSI-Not a Secondary Insurance 0l911g7c-0t05-8x1x-1hh7-6l225 z1234w2 4f743z6w-6x90-5b0m-9yq7-6z872v0142n9 ANSI-Commercial 26n806m8-yd0x-023l-e336-o95plv284ea8 10i341e0-kh2r-479d-e106-f62qmn499ij5 ANSI-Medicaid [id number]-60o8-4287-52n3-[id number] 7408d19n-79u8-4103-92z5-o1j6a33a2y46 ANSI-Medicaid [id number]-[id number]-2140-72zv-4046-r93219w38fhj ANSI-Commercial 0l36tyq6-u3s6-8wa6-9z38-8498g20bng72 3d25dnz8-q3a1-6bi4-7x66-4400t49zkv91 ANSI-Not a Secondary Insurance 456ckzqb-e704-4s4re938-3w5j-7890-65bj7 4po30k8 852ejxie-q260-4f3dv110-0g3e-9247-45oa91lv99d6 ANSI-Commercial 3i7r546t-i639-27mt-y049-9u0150ru4y33 6i7b768h-x902-49id-n747-5y3832dk0c88 ANSI-Medicare Part B [id number]-w7pj-q7rr60w491d2 ox60m85l-l1m2-8y90-s8bg-z6hq19z489h6 ANSI-Commercial fc543oi2-6y9j-2fv6-992o-07854y75t123 sl134wn7-9u8f-7ra5-610l-19212g95m777 ANSI-Medicare Part B [id number]-2086-u078-kup739qk6fm3 86eadow5-93jd-3628-a520-tyl534ov1ez8 ANSI-Commercial 70k47ro0-yb77-2970-zj6s-0kllzh6k388c 15d69mz8-lu78-7974-kg9c-3tukts4t473c ANSI-Commercial 027fc2t0-b425-0924-8c5x-7cw8c0ew4n1w 431bz7d5-p733-3121-2x2y-3fd9g5sq2y0f ANSI-Medicaid [id number]-55ho-144d-3j80-1sh90f8emc58 7e7rs47m-69dc-739x-6l77-7sq74w4gkq07 ANSI-Medicaid [id number]-x1q5-[id number] 9o5l9l26-0n73-77pc-u0g9-ng6w938nx166 ANSI-Not a Secondary Insurance 28820524-4w7o-5588-0vvn-188c8 01494m3 73750002-9e9z-6568-0zxd-523c891767e9 ANSI-Commercial 2kvy8h2r-1xp9-8hh5-m8v8-9l2q14uj8gt0 3gnl5p1m-2mg3-6uh2-p1b3-1g1l55es7ms9 ANSI-Medicaid 325j55a2-0dcg-5771-[id number] 848s68d2-2lyi-6384-nh56-3ok26mon3sx9 ANSI-Commercial n50c0932-0156-8613-h529-05q7qa50t7zx v41b2769-6301-2498-e942-29r2uf28o4ti ANSI-Commercial 31v66eu2-30pl-38r7-8769-k4h998h3j269 96a73xl6-71lo-39k8-3636-o6g902b3j125 ANSI-Medicare Part B [id number]-ja0v914f3886 ANSI-Not a Secondary Insurance 276z2331-4571-3516-8b64-78728 515453t 212w0613-6073-1714-6y18-90811433130c ANSI-Medicaid [id number]-[id number] q085o880-69r0-8747-46g0-c86o437870w4 ANSI-Medicaid [id number]-[id number] ANSI-Commercial 6o86h8e1-1wh9-889j-dxg7-w6cs5733f6v6 7f69g6c8-1fy6-116j-nhs8-e9hd3343u7v2 ANSI-Commercial 9h3k777v-49m2-8n53-07o7-90900qly11f3 4b1m939v-09a6-5s96-45q2-08404xzx74z2 ANSI-Medicare Part B [id number]-33eg-[id number] k5zi3046-uzr9-72li-20vp-78e5l6237d61 ANSI-Commercial 7c4305wr-0s92-8095-162f-200899pe39g7 6r5890af-7z17-9237-337a-246192si77g7 ANSI-Medicaid [id number]-[id number] eo217g5h-17o0-68hq-4i30-79iz97c5q0y8 ANSI-Not a Secondary Insurance phibp039-7b44-1851-2a94-3591c 4og47g7 -2q00-9704-2z12-1978h4su06t5 ANSI-Commercial 655284i1-7l19-4q86-m4t4-2gah04o1e5f8 463752b6-9i09-1o63-l4q1-1sjm53q2n2c2 ANSI-Commercial 074398jk-4678-43q4-tf05-o917u73865ar 262419ul-2521-87s4-kg35-j317k39027fj ANSI-Medicaid [id number]-f78u-7ua8-5p69-b82mmppt9ale mc1t2l65-r44f-6um2-4c19-x58cmhki5ypt ANSI-Not a Secondary Insurance 3v4cz05w-49cn-2170-m86m-16474 7357lw4 9e3hq19r-06xy-0479-z83n-653133797xw0 ANSI-Commercial 2as4e54e-gw7c-8278-8c0z-2e3929y95gf9 9xm8p46o-ly4q-6508-7p5t-5z6376a63wl5 ANSI-Medicare Part B [id number]-3517-[id number] ANSI-Medicaid [id number]-[id number] q794398s-ib03-7h3n-fvlu-[id number] ANSI-Commercial 7199h1p4-t44a-32w5-db87-0ba7qv6rm587 0443j1j5-s41j-89f5-wi42-4wk7is8bh279 ANSI-Medicaid [id number]-0113-747r-vgpg-[id number] 3a0j3hjm-9992-808p-umyd-c2mtu40d377p ANSI-Not a Secondary Insurance p24930cl-se9i-74a0-b9nn-46v9u b14785sf-wj5x-67q1-t8bm-85k3roikeh15 ANSI-Commercial 24732j5b-9937-07b3-u4t6-1s434k7k628j 61747w5t-2783-36r3-w1c2-4h780x1x116o ANSI-Medicaid [id number]-[id number] 50505g11-060b-76l6-58t2-36fj9h28c4u2 ANSI-Commercial 3u27x2m3-s5g0-0465-n369-74255n01zn4j 3v71u0u6-r6o1-0615-t344-89456r86zr5i ANSI-Medicare Part B [id number]-y0h1-td3279j3p6p0 b8907v8j-a84l-8240-d5s5-bw4479q3g3q2 ANSI-Not a Secondary Insurance 0ekx8312-z380-3846-b0mf-8xo06 31237s4 8odd9263-q955-2759-h7qe-2lu8021043j0 ANSI-Commercial 8ica426z-279q-4215-roxl-10if524de625 5wwt128g-353i-0052-hziy-68nq434zi369 ANSI-Medicaid [id number]-[id number]-ahjs-4p91-3642-[id number] ANSI-Commercial 7o08yk28-0su4-0f2r-3489-j6g358d4di5e 8h44mv84-8bh6-5v1n-7828-c6t470m7iz9r ANSI-Commercial 5lh339n2-po3e-7wny-46l1-05pz08p01472 5pz610n7-ge3u-5ebi-87n6-43vh98l37366 ANSI-Medicaid [id number]-[id number] [id number]-[id number] ANSI-Medicare Part B [id number]-7z0l-3547-f150-[id number] ANSI-Medicaid [id number]-[id number] ANSI-Medicare Part B [id number] 9sn74nb8-239q-0698-8ta2-8w1mpd099n8h ANSI-Commercial 84ea3267-0655-586k-apab-1dz3117wr0e9 25fo1196-9995-470j-mgbq-8ru7589za7b8 ANSI-Commercial 043uc143-744z-9f6u-0t15-s064m2q39500 788va001-874q-4o0r-1z96-d349h0j43181 ANSI-Not a Secondary Insurance k0qe4yv6-8340-0344-76c3-b78pa b264420 t5cq0oz4-2465-3606-14b5-i90alg846678 ANSI-Medicaid [id number] ANSI-Commercial n9j24034-s03m-0254-x89o-11t390927qc5 e9u80456-x50m-6311-f44z-41f900748ta0 ANSI-Not a Secondary Insurance r4s81yyc-nwrm-1896-g15h-1340t bk26s31 m8y87cti-rbya-2226-l71b-3958zie12u34 ANSI-Medicaid [id number] pb0s9jo8-6t92-49z1-7zs9-3393a8wvu8r0 ANSI-Medicare Part B [id number]-6gc5-6xy0q9kxb9fn n0otm72e-33j5-8guq-6kl8-8nk0c4cze9qf ANSI-Commercial ds08h244-x1yo-3j0e-797l-6qjmqn6598hr zo30p217-f7dg-6t6s-302x-3ijpyc8893ug ANSI-Commercial 1045evod-s690-328uo334-532c-hhx3-5071h9995072 5625slvq-e219-333lb374-617i-zvz8-6589a0962912 ANSI-Commercial 9rykdzcv-71it-4m821q61-0026-47b3yo17lg5i 4gynrocl-40pr-9b802n66-0708-72c7yc61sw8k ANSI-Medicaid l906xrl2-avb6-5912-[id number] h904tla7-ynq5-1868-po70-532jkz74r20a ANSI-Medicaid [id number]-[id number] 6k9hnv98-8670-7572-8h5f-2l78tg993se0 ANSI-Not a Secondary Insurance ln2j52ej-51ym-31s3-0495-353x3 6an77v1 hw9h17wi-24aw-52b7-2426-472z37hw67r7 ANSI-Commercial f3404423-8y57-23y2-v7gh-g90z0qb04f5x f5273615-6b29-65w9-t7oi-v53g3jw59k3k ANSI-Medicare Part B [id number]-xl4h-[id number] 4d5qx992-m764-9g45-fl7k-e2l20bd13e07 ANSI-Commercial q5561k3k-2598-5kf4-5981-3k0v49db6kcq g7566h8p-8311-4mw0-8460-4r0f09la5ubn ANSI-Medicaid [id number]-4n71-47t8-[id number] 59047sbo-2w81-01i1-n987-6kg524uowys5 ANSI-Commercial 1o96li22-44d8-9311-p62p-h68c0qp6901q 5m10hz62-90d2-2695-j94n-m63y3qa4601n ANSI-Medicare Part B [id number] xhdeh34d-l25m-3217-0p94-1767292v34b8 ANSI-Commercial 2e92f895-257e-8lp6-yoqs-645a0v7rt90n 3e69q990-643u-7ev0-robt-347u4c5lg44c ANSI-Medicaid [id number]-18qh-[id number] 1501nyx8-657k-59vo-5905-969025q7djd2 ANSI-Commercial 0658q599-050f-417i-i78v-1dc7q74fu7ov 7553m508-952d-168u-u85j-3of8o48ug7dt [facility] [id number]-[id number] qevb3438-m623-1474-jfz7-7h6c2rn40270 ANSI-Commercial hi9e8046-p46m-6ejx-i956-nv40z09wglh1 xg7y1732-g62c-8bzd-d397-ob11n26nytc6 ANSI-Medicare Part B [id number]-d5q9-69f8-[id number] [facility] [id number]-[id number]-[id number] ANSI-Commercial oadey657-4327-9q8q-500u-5f5bgykk16m6 -4984-3r9g-658q-4t3cbxxf69p2 ANSI-Medicaid [id number]-3357-8n0x-6y20t2y77w94 ANSI-Commercial 78xf2u35-x827-84c9-hj01-3bs5gvng5576 58li8g06-h119-34y5-hf76-7hy1dciq2299 ANSI-Commercial t357v3u9-jz6x-3ray-cn91-soo0n184ql85 k559g0j5-bp1m-9cef-xl47-fqa7j406up65 ANSI-Medicare Part B [id number]-2ek0wx6jvxt8 890h4d7j-d481-7b23-3t9t-2uf9gw1rmoz2 ANSI-Commercial 4q2fy3n6-08a6-959k-0y05-1a183h5qj2l5 7z5aa5x2-69s6-858w-5e11-4r188q3xr2x0 ANSI-Commercial j664t07n-gj94-3202-l540-5za802453x42 r442p30e-hr69-4708-f832-9fh738597o11 ANSI-Commercial 48sqv0q1-8cr0-86o7-s6a9-30s87323840h 34kwc2g4-6zj7-12z8-g5o5-47a04239057t ANSI-Medicaid [id number]-936z-[id number] n78bof5h-7a8x-359g-0712-2ak409s6g89f ANSI-Medicaid [id number] Medicaid [facility] Part B [id number] 80.0 Self [id number] Medicare Part B Medicare Primary [id number] Self [id number] ANSI-Medicare Part B [id number]-j09h-0l30-32qz-64p2ee0un2x8 ANSI-Commercial oa8j5l9c-721h-0lt9-fi9d-m9z7m30z9168 un6i8t0r-837t-0ix6-vg1o-p6j0v18n5126 ANSI-Medicaid [id number]-[id number]-[id number] ANSI-Commercial b525839q-q708-7523-62f9-xhxadfefg699 w565468r-n602-4806-39d4-ivsionvsq017 ANSI-Medicaid [id number]-[id number] ANSI-Commercial 0rtd1j5r-62z4-4h0p-0o62-5dkle96u4n9j 3umb3u4y-90y1-5f1s-5n35-8lguj35x7p5b ANSI-Commercial 97637d4h-0h09-3283-o491-db1a4augu4e8 02603g8r-1h07-2182-i300-tj3d0wlwl6p5 [facility]-Medicaid [id number] ANSI-Medicare Part B [id number] 2pc2s790-c08q-3jy4-mhr5-im44k85d1qz2 [facility]-Medicaid [id number]-5017-8h6n-[id number] ANSI-Commercial 8ap3q610-qmpy-6hh3-fc4h-f6k4894k6hue 5dc3u689-kkiq-7ql1-cq6k-v3u4122w0ejl ANSI-Commercial 5e6n2090-6r95-2221-5zys-wh280934g4p7 1a7x9530-8j59-0071-6sqq-vn205686z6p5 ANSI-Medicaid [id number]-[id number] ANSI-Medicaid [id number] v36xz9uh-7cio-626x-[id number] ANSI-Commercial np8x1121-3p2o-6t00-0871-a26jk30207v3 rj0b3817-7z7r-4g96-7922-s25au80575g1 ANSI-Commercial sw62e332-7iw7-5082-on4d-f50505420gy4 nx87p117-0hj5-9563-kr3p-f35247331ys3 ANSI-Commercial 1kt2t6s3-40d1-6575-i50h-5uz131s7p12c 8rm8f8m5-50c7-5237-i76u-0th345g2d25y ANSI-Medicare Part B [id number] ANSI-Medicare Part B [id number] ANSI-Medicaid [id number]-lc4e-0d10-[id number] ANSI-Commercial 2934zh23-w744-92m7-n649-78667747z69n 7464zs02-o895-50a6-y610-61776064y46b ANSI-Commercial 87650v6c-76u1-8931-0387-8z6592j16a3u 93542v3o-19v3-5554-0524-3b7036z11o3n ANSI-Medicaid [id number] ANSI-Commercial w17hl18j-ab92-9e29-7z54-5z4wkg8b7053 f82ns78j-rq54-4t30-0c57-4h6zjl4g9419 ANSI-Commercial 0e1way33-3446-892h-9xd7-283o5192y56r 8q5bgn21-2347-355i-6qp1-470j7832w33o ANSI-Medicaid [id number]-6869-5467-m95g-[id number] ANSI-Medicaid [id number]-u95u-458x-[id number] ANSI-Commercial 565si2h1-1yp8-6606-k36x-1k482r9392a2 838ix2y6-5pp8-3827-a31v-4o157d5600p9 ANSI-Medicaid [id number] ANSI-Commercial e0r8q7kg-917p-05wp-3r22-r664219l714l g4n1n4vr-394s-37mr-4u32-f732262u104a ANSI-Commercial i77k9s0v-0461-3lqi-2m4w-53109o5j916i i20y4y2i-3614-2kej-5a7k-06883z1k243g [facility]-Medicaid [id number]-g55w-[id number] [facility]-Medicaid [id number] 90x0o7hi-yu0e-5209-s8c6-12z67g13w44m [facility]-Medicaid [id number]-[id number]-o205-5850-j535-w069n0foz96x ANSI-Commercial 8856qvb9-xotl-7018-l459-r2w6051pi896 8212eok3-mrko-7471-a847-o9a3156kv333 ANSI-Commercial ob68923i-5atf-8s80-c803-g2n38k4824ho ae38194h-3xpl-1r61-v811-a0a10v6786so ANSI-Commercial 3r0w5n10-1379-77w9-1864-d3f5e96k1267 8j1j3g90-9273-32d9-9506-d6f6g72c8963 [facility]-Medicaid [id number] 28067p0e-0d2l-[id number] [facility]-Medicaid [id number] 13j236iu-2e4u-4236-dfn2-2dgd9kh82923 ANSI-Commercial c74evy70-1x47-239c-aheu-9530s4m97197 t68whx55-8e23-723o-frjz-4402k3b41627 [facility]-Medicaid [id number]-2r7v-[id number] ANSI-Medicaid [id number]-ry04-999x-7q35-4h9g4d7397v3 ANSI-Commercial ezx6f295-9y1h-1z46-2913-64p922uq39rq lxb6j901-7n9p-6j19-8177-59h610ve58qa ANSI-Commercial ypb8ua70-7008-4c8m-h03l-19ni650717g3 yio7sq98-0789-7b9t-j44b-16nc482376t5 ANSI-Medicaid [id number]-e86y-1z87-[id number] x76k339a-n93f-7m29-k342-n65a0l08vd8l ANSI-Commercial 730ry07a-r263-6382-dxu2-0k72wt760243 928ko66j-u929-7348-dsw1-3j03az609449 ANSI-Commercial 3ap065n7-3twn-4428-xqh1-1954500xg2ty 0kx796l9-6tkj-8208-ppg2-4317811kr4wh ANSI-Medicaid [id number]-57hw-[id number] 72h7a0c2-4t1y-04qa-2tk6-8xt97q895734 ANSI-Commercial g1220p15-00t6-8lu2-xp89-292rqqs798i9 d6646i98-24i3-1fm8-yu19-303kqeh463h5 ANSI-Medicaid [id number]-[id number] 1zx0zo0m-7p52-73l4-lu87-hb0d079478o1 ANSI-Commercial 59109f8f-3a72-56na-0210-3994c2x980y4 25728x7k-2f51-88nb-6960-4200e7g296g2 ANSI-Medicaid [id number]-[id number] 9x57j154-rkr8-28p8-4r42-et0himd00424 ANSI-Medicaid [id number]-300t-28hs-[id number] h3x8fmyw-326b-74la-7r60-9olj7664324r ANSI-Commercial 0876d2s7-v674-7513-f5l2-w3i4959bt819 4144y7u2-k738-0860-q5g6-u9r2051qx149 ANSI-Medicaid [id number]-ti7a-[id number] 8d5pg30r-ve8u-4213-376l-513mb3w950iq ANSI-Commercial 98ip03v2-25na-248k-eqs4-753644x96c8i 74ly44f1-70dt-769p-mjj7-893562d82x0a ANSI-Commercial 3f120q3e-2e07-815u-8l92-78vv212n7on7 2g108g2i-1r01-962d-2y28-31dz267i1wu1 ANSI-Commercial z6d491v2-277z-55pq-p68q-59y7m80l0945 w2s720f7-180e-81ad-k64w-83k6n20o4617 ANSI-Medicaid [id number]-4rkn-147v-[id number] 17n199bi-6nuk-877h-v2r2-3a298m0627k7 ANSI-Medicaid [id number]-u3er-38l0-[id number] 26y832g8-y2yv-19p1-ka05-1lva15uu8eqe ANSI-Medicaid [id number]-[id number] 1f9c4pyg-5l29-9831-ji4d-[id number] ANSI-Commercial vx5t64m9-4fr9-3l80-6y01-1tcbj19f9870 ig0h80l2-7lw3-3i75-5s01-2fttb84g4455 ANSI-Medicaid [id number]-[id number] 5hnfxx7e-3972-9407-f160-p8o306c1c136 ANSI-Commercial 2y89r8e0-0536-3489-40o3-yz7l2988z2k1 2z08m6u3-8515-4670-48m2-ww6g1665i6j4 ANSI-Commercial 8mf9uk8e-7z25-0ptu-hqi8-z1idd8an2tds 4ds3yz9r-1r46-1fdk-gfr0-e2cvu0dj4swl ANSI-Medicaid [id number]-[id number] c6j42696-b9o8-8h8c-377f-275l8exu6q52 ANSI-Medicaid [id number]-p971-51y8-3sml-[id number] 09623ho0-a542-10l0-8otg-5r93k7m8om7p ANSI-Commercial 20jp2nbs-0383-3a2h-3621-78635f29mb0n 89ag5ajt-0911-3w5s-1254-89111g30wn8a ANSI-Medicaid [id number] z03l094s-07da-07kx-09i1-[id number] ANSI-Commercial 3rhq96vj-kz47-946n-8599-7586819ay49b 3glx18sw-iw57-569l-7272-7671283bz83k ANSI-Commercial 2551t20t-3z57-59cd-1435-09l510x16gk7 0549c33c-0t35-87qp-6760-79o944u91es3 ANSI-Medicaid [id number]-0hc0-[id number] 5e1263i3-m91p-9gr5-ov0u-62ig4r657c3y ANSI-Commercial 37t206fv-05v3-42o4-6axf-480315hbysh2 97x993sg-03v2-28q4-1ysf-320944whhvk1 ANSI-Medicaid [id number]-4k76-[id number] ANSI-Commercial 40246627-egja-9l6t-cx42-30h5899srd04 89897388-kmzp-1e5j-lv46-04i9064nll73 ANSI-Medicaid [id number]-67d1-[id number] 2m67uysm-b39g-00e5-b5pr-ih789d6oj84s [employer] COMM[facility] PLAN [facility] [id number] SP [id number] [place] [id number] SP [id number] MEDICAID [id number] SP [id number] SELF PAY ONLY [id number] SP [id number] Medicaid Medicaid [id number] Self [id number] [employer] COMMUNITY PLAN [facility] [id number] SP [id number] [facility] O [id number] S [id number] [facility] COMMUNITY PLAN [facility] [id number] SP [id number] Community Plan - [facility] Commercial [id number] Self [id number] [facility] Ppo Commercial [id number] Self [id number] [facility] [id number] SP [id number] [facility] Commercial [id number] Self [id number] [facility] Ppo Commercial [id number] Self 335 [facility] [id number] SP [id number] [facility] [id number] SP [id number] [facility] PPO O [id number] S [id number] [facility] Commercial [id number] Self HMO BLUE [id number] [place] S[employer] TRUST WCB [id number] SP WCB [id number] [employer] [id number] SP [id number] SELF PAY UNAVAILABLE [place] BLE [facility] (pr) Commercial [id number] Self POMCO [id number] SP [id number] SPECIAL FUNDS P [id number] S SUP [id number] [facility] PPO P [id number] S [id number] [facility] (68) [id number] 1 [id number] [facility] (68) [id number] 1 [id number] [facility] COMM SELF [id number] S [id number] [place] [id number] SP [id number] S [facility] PPO P UNAVAILABLE [id number] S [place] BLE [facility] MCRHMO [id number] SP [id number] EMEDNY [id number] SP [id number] [facility](MCAID) O [id number] S [id number] MEDICAID M [id number] S [id number] MEDICAID [id number] S [id number] [facility] DUAL COMPLET [id number] S [id number] MEDICAID [id number] S [id number] [facility] MEDICARE [id number] S [id number] Managed Care - [facility] P [id number] S [id number] Medicaid S UNAVAILABLE S [place] B[place] MEDICAID [id number] SP [id number] ANSI-Commercial [id number] gqhi8o2u-0924-369k-[id number] ANSI-Medicaid [id number] ANSI-Medicaid [id number] ANSI-Commercial v2fc578t-ht25-1858-wy64-4u1sd7g39z97 l0ir337c-mn39-0901-zi65-9a7ph2r01e48 ANSI-Medicare Part B [id number] ANSI-Commercial 7223jiws-q5cb-8554m6si-0779-612u-3a86yfr78223 9879rvgs-p1yu-7705p6km-7212-107i-7c35ewq94907 ANSI-Not a Secondary Insurance [id number]-[id number] [id number]-i4y1-1674-037x-[id number] ANSI-Medicaid [id number] ANSI-Medicaid [id number] ANSI-Commercial 209w2x94-8bqn-527g-0232-m5ki82122636 989q8e88-8kii-515k-0179-t5ec92091424 ANSI-Commercial xzq8511o-6v5o-2674-9y66-9q788658o372 kyo7726o-5a3s-[id number] ANSI-Medicare Part B [id number] ANSI-Commercial 9ls265w9-nuu4-5339-25aj-036s234s0972 2qa396q2-qwi6-7027-26le-575l780w1026 ANSI-Not a Secondary Insurance [id number]-369i-0907-8s98-96q59 [id number] nc33dk6i-213p-[id number] MEDICARE [id number] SP [id number] ANSI-Medicare Part B [id number] ANSI-Commercial 2n7n5376-u086-03o2-123z-2q39nupdoruz 2r9j3853-r201-40c1-418r-0t33occwhueu ANSI-Commercial e2146w48-d2rf-316z-l4tg-1817447s8q7t b6051i93-b5cp-251u-z0cd-6448493n4c9u ANSI-Medicaid [id number] ANSI-Commercial 7aq4841m-oq2p-64ih-69ms-8pibou60zk89 3vm2022z-db4n-93ge-63di-0lmoyb09hd21 ANSI-Not a Secondary Insurance 11794o17-l583-78tc-26q4-p68m3 5sw9c0u 92208k90-c599-12am-43r9-c18d11bs1n1z ANSI-Medicaid [id number]-06v2-h1e5-2c7pw73mo4k6 ANSI-Not a Secondary Insurance [id number]-y59px 22089x2 1po9ks68-2403-9n53-45tb-q28ee03296t1 ANSI-Medicaid [id number] ANSI-Medicare Part B [id number]-ou80-134zsr875ili ANSI-Commercial 3vg596hm-o0x4-1618-29q7-v54f82o65xln 6wv277cn-a6l8-5611-85b0-t40h38q47fdd ANSI-Medicaid [id number] ANSI-Commercial 0n942w45-y8jf-74uh-a3ew-g4i1f983ui5p 2p984t73-z2hd-86ul-a4ea-a1s8k838kp4g ANSI-Commercial 091q39yt-8500-2s23-894d-0sf21y473j5q 545g70lb-7976-4y52-782m-3gi68z292q0n Problems, Conditions, and Diagnoses Code Display Name Description Problem Type Effective Dates Data Source(s) B35.1 Onychomycosis Onychomycosis Problem 02/24/2021 12:00:00 AM EDT [facility] ([facility] I87.312 Venous ulcer of lower extrem ity due to chronic peripheral venous hypertension Chronic venous hypertension (idiopathic) with ulcer of left lower extremity Problem 12/10/2020 12:00:00 AM EDT [facility] T14.8XXA [id number] Deep tissue injury Problem 11/12/2020 12:00: 00 AM EDT eCW1 ([facility]) L97.929 [id number] Non-pressure ulcer of left lower extremit y Problem 11/12/2020 12:00:00 AM EDT eCW1 ([facility]) T86.828 [id number] 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) Problem 10/27/2020 12:00:00 AM EDT eCW1 ([facility]) T81.31XA [id number] Postoperative dehiscence of skin wound, initial encounter Problem 09/23/2020 12:00:00 AM EST eCW1 ([facility]) L89.894 Pressure ulcer of left foot stage 4 Pressure ulc er of left foot stage 4 Problem 09/11/2020 12:00:00 AM EST [facility] ([facility] E11.621 Type 2 diabetes mellitus with ulcer Type 2 diabe abhijit mellitus with ulcer Problem 08/26/2020 12:00:00 AM EST [facility] ([facility] M86.172 Acute osteomyelitis of ankle and/or foot Acute osteomyelitis of ankle and/or foot Problem 08/26/2020 12:00:00 AM EST [facility] ([facility] L89.893 Pressure ulcer of left foot stage 3 Pressure ulc er of left foot stage 3 Problem 08/26/2020 12:00:00 AM EST - 09/11/2020 12:00:00 AM ES T [facility] ([facility] Surgeries/Procedures Procedure Description Date Indications Data Source(s) FINE NEEDLE ASPIRATION W/O IMAGING GUIDANCE 05/26/2021 12:00:00 AM EDT eCW1 ([facility]) OFFICE OUTPATIENT VISIT 25 MINUTES 05/19/2021 12:00:00 AM EDT [facility] ([facility]) Diabetic Retinal Eye Exam 05/13/2021 12:00:00 AM EDT [facility] ([facility]) FINE NEEDLE ASPIRATION W/O IMAGING GUIDANCE 05/12/2021 12:00:00 AM EDT eCW1 ([facility]) FINE NEEDLE ASPIRATION W/O IMAGING GUIDANCE 04/28/2021 12:00:00 AM EDT eCW1 ([facility]) OFFICE OUTPATIENT VISIT 25 MINUTES 04/27/2021 12:00:00 AM EDT [facility] ([facility] ) DEBRIDEMENT NAIL ANY METHOD 1-5 04/22/2021 12:00:00 AM EDT [facility] ([facility] FINE NEEDLE ASPIRATION W/O IMAGING GUIDANCE 04/07/2021 12:00:00 AM EDT eCW1 ([facility]) Chronic Care Management Services Ea Addl 20 Min 2020 12:00:00 AM EDT MED[facility] ([facility]) Chronic Care MGMT 20 Mins Clinical Staff Time Per Calendar M ont 04/02/2021 12:00:00 AM EDT [facility] ([facility] ) FINE NEEDLE ASPIRATION W/O IMAGING GUIDANCE 04/02/2021 12:00:00 AM EDT eCW1 ([facility]) FINE NEEDLE ASPIRATION W/O IMAGING GUIDANCE 03/24/2021 12:00:00 AM EDT eCW1 ([facility]) Medication: Silver Nitrate Stick topically 03/24/2021 12:00:00 AM EDT eCW1 ([facility]) FINE NEEDLE ASPIRATION W/O IMAGING GUIDANCE 03/17/2021 12:00:00 AM EDT eCW1 ([facility]) Medication: Silver Nitrate Stick topically 03/17/2021 12:00:00 AM EDT eCW1 ([facility]) FINE NEEDLE ASPIRATION W/O IMAGING GUIDANCE 03/04/2021 12:00:00 AM EDT eCW1 ([facility]) Chronic Care MGMT 20 Mins Clinical Staff Time Per Calendar M ont 02/26/2021 12:00:00 AM EDT MED[facility] ([facility] ) Chronic Care Management Services Ea Addl 20 Min 2020 12:00:00 AM EDT [facility] ([facility]) FINE NEEDLE ASPIRATION W/O IMAGING GUIDANCE 02/24/2021 12:00:00 AM EDT eCW1 ([facility]) Medication: Silver Nitrate Stick topically 02/17/2021 12:00:00 AM EDT eCW1 ([facility]) FINE NEEDLE ASPIRATION W/O IMAGING GUIDANCE 02/17/2021 12:00:00 AM EDT eCW1 ([facility]) DEBRIDEMENT NAIL ANY METHOD 1-5 02/11/2021 12:00:00 AM EDT [facility] ([facility] FINE NEEDLE ASPIRATION W/O IMAGING GUIDANCE 02/11/2021 12:00:00 AM EDT eCW1 ([facility]) Medication: Silver Nitrate Stick topically 02/11/2021 12:00:00 AM EDT eCW1 ([facility]) Complex Chronic Care MGMT Service Ea Addl 30 Min 02/09 12:00:00 AM EDT [facility] ([facility]) Complex Chronic Care Management SVC 1St 60 Min 021 12:00:00 AM EDT [facility] ([facility]) Medication: Silver Nitrate Stick topically 02/03/2021 12:00:00 AM EDT eCW1 ([facility]) FINE NEEDLE ASPIRATION W/O IMAGING GUIDANCE 02/03/2021 12:00:00 AM EDT eCW1 ([facility]) FINE NEEDLE ASPIRATION W/O IMAGING GUIDANCE 01/28/2021 12:00:00 AM EDT eCW1 ([facility]) FINE NEEDLE ASPIRATION W/O IMAGING GUIDANCE 01/21/2021 12:00:00 AM EDT eCW1 ([facility]) FINE NEEDLE ASPIRATION W/O IMAGING GUIDANCE 01/07/2021 12:00:00 AM EDT eCW1 ([facility]) Medication: Silver Nitrate Stick topically 01/07/2021 12:00:00 AM EDT eCW1 ([facility]) Chronic Care MGMT 20 Mins Clinical Staff Time Per Calendar M ont 01/04/2021 12:00:00 AM EDT [facility] ([facility] ) FINE NEEDLE ASPIRATION W/O IMAGING GUIDANCE 12/31/2020 12:00:00 AM EDT eCW1 ([facility]) Medication: Silver Nitrate Stick topically 12/31/2020 12:00:00 AM EDT eCW1 ([facility]) Med: Cadexomer Iodine gel topical IODOSORB 10gm 2020 12:00:00 AM EDT eCW1 ([facility]) FINE NEEDLE ASPIRATION W/O IMAGING GUIDANCE 12/24/2020 12:00:00 AM EDT eCW1 ([facility]) 12/24/2020 12:00:00 AM EDT e CW1 ([facility]) HBO Protocol 2.0 NESTOR for 90 Minutes without Air Breaks 2020 12:00:00 AM EDT eCW1 ([facility]) Capillary Blood Glucose Pre and Post HBO Treatment 12/21/2020 12:00:00 AM EDT eCW1 ([facility]) Capillary Blood Glucose Pre and Post HBO Treatment 12/18/2020 12:00:00 AM EDT eCW1 ([facility]) FINE NEEDLE ASPIRATION W/O IMAGING GUIDANCE 12/17/2020 12:00:00 AM EDT eCW1 ([facility]) Capillary Blood Glucose Pre and Post HBO Treatment 12/17/2020 12:00:00 AM EDT eCW1 ([facility]) Capillary Blood Glucose Pre and Post HBO Treatment 12/15/2020 12:00:00 AM EDT eCW1 ([facility]) Capillary Blood Glucose Pre and Post HBO Treatment 12/11/2020 12:00:00 AM EDT eCW1 ([facility]) FINE NEEDLE ASPIRATION W/O IMAGING GUIDANCE 12/10/2020 12:00:00 AM EDT eCW1 ([facility]) Medication: Silver Nitrate Stick topically 12/10/2020 12:00:00 AM EDT eCW1 ([facility]) Capillary Blood Glucose Pre and Post HBO Treatment 12/09/2020 12:00:00 AM EDT eCW1 ([facility]) HBO Protocol 2.0 NESTOR for 90 Minutes without Air Breaks 12/08/2020 12:00:00 AM EDT eCW1 ([facility]) HBO Protocol 2.0 NESTOR for 90 Minutes without Air Breaks 12/07/2020 12:00:00 AM EDT eCW1 ([facility]) Capillary Blood Glucose Pre and Post HBO Treatment 12/04/2020 12:00:00 AM EDT eCW1 ([facility]) Capillary Blood Glucose Pre and Post HBO Treatment 12/03/2020 12:00:00 AM EDT eCW1 ([facility]) FINE NEEDLE ASPIRATION W/O IMAGING GUIDANCE 12/03/2020 12:00:00 AM EDT eCW1 ([facility]) Capillary Blood Glucose Pre and Post HBO Treatment 12/02/2020 12:00:00 AM EDT eCW1 ([facility]) Capillary Blood Glucose Pre and Post HBO Treatment 12/01/2020 12:00:00 AM EDT eCW1 ([facility]) Capillary Blood Glucose Pre and Post HBO Treatment 11/30/2020 12:00:00 AM EDT eCW1 ([facility]) Capillary Blood Glucose Pre and Post HBO Treatment 11/27/2020 12:00:00 AM EDT eCW1 ([facility]) OFFICE OUTPATIENT VISIT 25 MINUTES 11/26/2020 12:00:00 AM EDT [facility] ([facility]) FINE NEEDLE ASPIRATION W/O IMAGING GUIDANCE 11/26/2020 12:00:00 AM EDT eCW1 ([facility]) Capillary Blood Glucose Pre and Post HBO Treatment 11/26/2020 12:00:00 AM EDT eCW1 ([facility]) Chronic Care MGMT 20 Mins Clinical Staff Time Per Calendar M ont 11/25/2020 12:00:00 AM EDT LEAH ([facility] ) Chronic Care Management Services Ea Addl 20 Min 2020 12:00:00 AM EDT MEDS[facility]AH ([facility]) Capillary Blood Glucose Pre and Post HBO Treatment 11/25/2020 12:00:00 AM EDT eCW1 ([facility]) Capillary Blood Glucose Pre and Post HBO Treatment 11/24/2020 12:00:00 AM EDT eCW1 ([facility]) Capillary Blood Glucose Pre and Post HBO Treatment 11/23/2020 12:00:00 AM EDT eCW1 ([facility]) Capillary Blood Glucose Pre and Post HBO Treatment 11/20/2020 12:00:00 AM EDT eCW1 ([facility]) Capillary Blood Glucose Pre and Post HBO Treatment 11/19/2020 12:00:00 AM EDT eCW1 ([facility]) FINE NEEDLE ASPIRATION W/O IMAGING GUIDANCE 11/18/2020 12:00:00 AM EDT eCW1 ([facility]) Capillary Blood Glucose Pre and Post HBO Treatment 11/18/2020 12:00:00 AM EDT eCW1 ([facility]) Capillary Blood Glucose Pre and Post HBO Treatment 11/17/2020 12:00:00 AM EDT eCW1 ([facility]) Capillary Blood Glucose Pre and Post HBO Treatment 11/16/2020 12:00:00 AM EDT eCW1 ([facility]) Capillary Blood Glucose Pre and Post HBO Treatment 11/13/2020 12:00:00 AM EDT eCW1 ([facility]) FINE NEEDLE ASPIRATION W/O IMAGING GUIDANCE 11/12/2020 12:00:00 AM EDT eCW1 ([facility]) Capillary Blood Glucose Pre and Post HBO Treatment 11/12/2020 12:00:00 AM EDT eCW1 ([facility]) Capillary Blood Glucose Pre and Post HBO Treatment 11/11/2020 12:00:00 AM EDT eCW1 ([facility]) Capillary Blood Glucose Pre and Post HBO Treatment 11/10/2020 12:00:00 AM EDT eCW1 ([facility]) HBO Protocol 2.0 NESTOR for 90 Minutes without Air Breaks 11/09/2020 12:00:00 AM EDT eCW1 ([facility]) Capillary Blood Glucose Pre and Post HBO Treatment 11/06/2020 12:00:00 AM EDT eCW1 ([facility]) FINE NEEDLE ASPIRATION W/O IMAGING GUIDANCE 11/05/2020 12:00:00 AM EDT eCW1 ([facility]) Capillary Blood Glucose Pre and Post HBO Treatment 11/05/2020 12:00:00 AM EDT eCW1 ([facility]) Capillary Blood Glucose Pre and Post HBO Treatment 11/04/2020 12:00:00 AM EDT eCW1 ([facility]) Capillary Blood Glucose Pre and Post HBO Treatment 11/03/2020 12:00:00 AM EDT eCW1 ([facility]) Capillary Blood Glucose Pre and Post HBO Treatment 11/02/2020 12:00:00 AM EDT eCW1 ([facility]) Capillary Blood Glucose Pre and Post HBO Treatment 10/30/2020 12:00:00 AM EDT eCW1 ([facility]) Medication: Silver Nitrate Stick topically 10/29/2020 12:00:00 AM EDT eCW1 ([facility]) FINE NEEDLE ASPIRATION W/O IMAGING GUIDANCE 10/29/2020 12:00:00 AM EDT eCW1 ([facility]) Capillary Blood Glucose Pre and Post HBO Treatment 10/27/2020 12:00:00 AM EDT eCW1 ([facility]) Medication: 4% Lidocaine topical cream (Anecream) 30 gm 10/21/2020 12:00:00 AM EST eCW1 ([facility]) Medication: Silver Nitrate Stick topically 10/21/2020 12:00:00 AM EST eCW1 ([facility]) FINE NEEDLE ASPIRATION W/O IMAGING GUIDANCE 10/14/2020 12:00:00 AM EST eCW1 ([facility]) FINE NEEDLE ASPIRATION W/O IMAGING GUIDANCE 10/07/2020 12:00:00 AM EST eCW1 ([facility]) Medication: Silver Nitrate Stick topically 10/07/2020 12:00:00 AM EST eCW1 ([facility]) FINE NEEDLE ASPIRATION W/O IMAGING GUIDANCE 09/23/2020 12:00:00 AM EST eCW1 ([facility]) Amputation Foot Transmetatarsal 09/16/2020 12:00:00 AM EST [facility] ([facility] OFFICE OUTPATIENT VISIT 15 MINUTES 09/11/2020 12:00:00 AM EST [facility] ([facility] FINE NEEDLE ASPIRATION W/O IMAGING GUIDANCE 08/31/2020 12:00:00 AM EST eCW1 ([facility]) RADEX FOOT COMPLETE MINIMUM 3 VIEWS 08/21/2020 12:00:0 0 AM EST [facility] ([facility] FINE NEEDLE ASPIRATION W/O IMAGING GUIDANCE 08/19/2020 12:00:00 AM EST eCW1 ([facility]) FINE NEEDLE ASPIRATION W/O IMAGING GUIDANCE 08/11/2020 12:00:00 AM EST eCW1 ([facility]) FINE NEEDLE ASPIRATION W/O IMAGING GUIDANCE 08/05/2020 12:00:00 AM EST eCW1 ([facility]) FINE NEEDLE ASPIRATION W/O IMAGING GUIDANCE 07/28/2020 12:00:00 AM EST eCW1 ([facility]) FINE NEEDLE ASPIRATION W/O IMAGING GUIDANCE 07/20/2020 12:00:00 AM EST eCW1 ([facility]) FINE NEEDLE ASPIRATION W/O IMAGING GUIDANCE 06/22/2020 12:00:00 AM EST eCW1 ([facility]) FINE NEEDLE ASPIRATION W/O IMAGING GUIDANCE 06/03/2020 12:00:00 AM EDT eCW1 ([facility]) ELECTROENCEPHALOGRAM W/REC AWAKE&ASLEEP 05/28/2020 12: 00:00 AM EDT MED[facility] ([facility]) ELECTROENCEPHALOGRAM W/REC AWAKE&ASLEEP 05/28/2020 12: 00:00 AM EDT [facility] ([facility]) FINE NEEDLE ASPIRATION W/O IMAGING GUIDANCE 05/20/2020 12:00:00 AM EDT eCW1 ([facility]) Magnetic Resonance Angiogtaphy Head W/O Contrast Material(S) 04/25/2020 12:00:00 AM EDT [facility] ([facility]) Magnetic Resonance Angiogtaphy Head W/O Contrast Material(S) 04/25/2020 12:00:00 AM EDT [facility] ([facility]) Magnetic Resonance Angiography Neck W/O Contrast Materials 04/25/2020 12:00:00 AM EDT [facility] ([facility]) Magnetic Resonance Angiography Neck W/O Contrast Materials 04/25/2020 12:00:00 AM EDT [facility] ([facility]) MRI BRAIN BRAIN STEM W/O CONTRAST MATERIAL 04/25/2020 12:00:00 AM EDT [facility] ([facility] ) MRI BRAIN BRAIN STEM W/O CONTRAST MATERIAL 04/25/2020 12:00:00 AM EDT [facility] ([facility] ) Mammogram 04/23/2020 12:00:00 AM EDT M EDENT ([facility]) Results ID Date Data Source [id number] 05/19/2021 11:41:00 AM EDT MED[facility] ([facility]) Name Value Range Interpretation Code Description Data Kaya rce(s) Supporting Document(s) Hepatitis C virus Ab [Units/volume] in Serum by Immunoassay 0.1 INDEX MED[facility] ([facility]) Negative Not infected with HCV, unless recent infection is suspected or other evidence exists to indicate HCV infection. Ferritin [Mass/volume] in Serum or Plasma 58 ng/mL 8-252 [facility] ([facility]) ID Date Data Source [id number] 05/19/2021 11:41:00 AM EDT [facility] ([facility]) Name Value Range Interpretation Code Description Data Kaya rce(s) Supporting Document(s) Iron (Fe) 66 ug/dL 50-170 [facility]) Total Iron Binding Capacity 354 ug/dL 250-450 ND D[facility] ([facility]) Percent Saturation 18.6 % 13.2-45.0 [facility] ([facility]) ID Date Data Source [id number] 05/19/2021 11:39:00 AM EDT [facility] ([email or web address] Name Value Range Interpretation Code Description Data Kaya rce(s) Supporting Document(s) Microalbumin Urine 6.1 mg/L 1.3-20.0 [facility] ([facility]) Microalb/Creat Ratio 30.0 ug/mg 0.0-30.0 [facility] ( [facility]) Urine Creatinine 20.3 mg/dL 30.0-125.0 [facility] ([facility]) ID Date Data Source [id number] 05/19/2021 11:39:00 AM EDT [facility] ([facility]) Name Value Range Interpretation Code Description Data Kaya rce(s) Supporting Document(s) Cholesterol [Mass/volume] in Serum or Plasma 117 mg/dL 131-200 [facility] ([facility]) Cholesterol in LDL [Mass/volume] in Serum or Plasma by calcu lation 49 CALC 50-159 [facility] ([facility]) Cholesterol in HDL [Mass/volume] in Serum or Plasma 50 mg/dL 35-60 [facility] ([facility]) Triglyceride [Mass/volume] in Serum or Plasma 88 mg/dL 30-150 [facility] ([facility]) ID Date Data Source [id number] 05/19/2021 11:39:00 AM EDT [facility] ([facility]) Name Value Range Interpretation Code Description Data Kaya rce(s) Supporting Document(s) Glucose [Mass/volume] in Serum or Plasma 93 mg/dL 74-99 [facility] ([facility]) 100-125 mg/dL PRE-DIABETES/FASTING >126 mg/dL DIABETES/FASTING Urea nitrogen [Mass/volume] in Serum or Plasma 19 mg/dL 7-18 [facility] ([facility]) Creatinine 1.2 mg/dL 0.6-1.3 [facility] Chloride [Moles/volume] in Serum or Plasma 104 meq/L 98-107 [facility] ([facility]) Potassium [Moles/volume] in Serum or Plasma 4.6 meq/L 3.5-5.1 [facility] ([facility]) Sodium [Moles/volume] in Serum or Plasma 139 meq/L 136-145 [facility] ([facility]) Carbon dioxide, total [Moles/volume] in Serum or Plasma 25 meq/L 21 -32 [facility] ([facility]) Calcium [Mass/volume] in Serum or Plasma 8.8 mg/dL 8.5-10.1 [facility] ([facility]) Aspartate aminotransferase [Enzymatic activity/volume] in Serum or Plasma 19 U/L 15-37 [facility] ([facility] ) Alkaline phosphatase isoenzyme [Units/volume] in Serum or Pl asma 175 mg/dL 46-116 [facility] ([facility]) NOTE: alk phos,t.bili verified Total Bilirubin 1.6 mg/dL 0.2-1.0 [facility] ([facility]) Proteinase 3 Ab [Units/volume] in Serum 8.0 g/dL 6.4-8.2 [facility] ([facility]) A/G Ratio 0.82 CALC 1.00-1.90 [facility]) Albumin [Mass/volume] in Serum or Plasma 3.6 g/dL 3.4-5.0 [facility] ([facility]) Alanine aminotransferase [Enzymatic activity/volume] in Seru m or Plasma 16 U/L 12-78 [email or web address] Glomerular filtration rate/1.73 sq M pre dicted among blacks [Volume Rate/Area] in Serum or Plasma by Creatinine-based formula (MDRD) 54 mL/min [facility] [email or web address] <content>CHRONIC KIDNEY DISEASE STAGING PER NKF</content>
<content></content>
<content>STAGE I & II GFR >= 60 NORMAL TO MILDLY DECREASED</content>
<content>STAGE III GFR 30-59 MODERATELY DECREASED</content>
<content>STAGE IV GFR 15-29 SEVERELY DECREASED</content>
<content>STAGE V GFR <15 VERY LITTLE GFR LEFT</content>
<content>ESRD GFR <15 ON NUMERICAL CONTROL OPERATOR</content>
<content></content> Glomerular filtration rate/1.73 sq M pre dicted among non-blacks [Volume Rate/Area] in Serum or Plasma by Creatinine-based formula (MDRD) 45 mL/min [facility] [email or web address] ID Date Data Source [id number] 05/19/2021 11:39:00 AM EDT [facility] ([email or web address] Name Value Range Interpretation Code Description Data Kaya rce(s) Supporting Document(s) Hemoglobin A1c/Hemoglobin.total in Blood 7.0 % [facility] [email or web address] Lab Result Notes: Pre-Diabetes 5.7 - 6.4 % Diabetes = or > 6.5% Glucose mean value [Mass/volume] in Blood Estimated fr om glycated hemoglobin 154 mg/dL 60-110 [facility] ([facility] ) ID Date Data Source [id number] 05/19/2021 11:39:00 AM EDT [facility] ([facility]) Name Value Range Interpretation Code Description Data Kaya rce(s) Supporting Document(s) Leukocytes [#/volume] in Blood by Automated count 7.4 x10*3/UL 4.1-10 .9 [facility] [email or web address] Erythrocytes [#/volume] in Blood by Automated count 4.41 x10*6/UL 4.2 0-6.30 [facility] [email or web address] Hemoglobin [Mass/volume] in Blood 13.1 g/dL 12.0-18.0 [facility] [email or web address] Hematocrit [Volume Fraction] of Blood by Automated count 39.9 % 3 7.0-51.0 [facility] [email or web address] MCHC 32.8 g/dL 31.0-38.0 [facility] ([facility]) MCH 29.7 pg 26.0-32.0 [facility] ([facility]) MCV 90.5 fL 80.0-97.0 [facility] ([facility]) Platelets [#/volume] in Blood by Automated count 273 x10*3/UL 140-440 [facility] [email or web address] Lymph % 15.2 % 10.0-58.5 [facility] ([facility]) MPV 8.0 FL 7.8-11.0 [facility] ([facility]) Erythrocyte distribution width [Ratio] by Automated count 13.7 % 11.6-13.7 [facility] ([facility]) Mid % 4.0 % 1.7-9.3 [facility] ([facility]) Lymph # 1.1 x10*3/UL 0.6-4.1 [facility] ([facility]) Neut % 80.8 % 37.0-92.0 [facility] ([facility]) Mid # 0.3 x10*3/UL 0.1-0.6 [facility] ([facility]) Neut # 6.0 x10*3/UL 2.0-7.8 [facility] ([facility]) ID Date Data Source [id number] 05/19/2021 11:39:00 AM EDT [facility] ([facility]) Name Value Range Interpretation Code Description Data Kaya rce(s) Supporting Document(s) Hemoglobin A1c/Hemoglobin.total in Blood Laboratory test result [facility] ([facility]) ID Date Data Source [id number] 12/01/2020 12:44:00 PM EDT [facility] Name Value Range Interpretation Code Description Data Kaya rce(s) Supporting Document(s) INR in Platelet poor plasma by Coagulation assay 1.2 [facility] ([facility]) ID Date Data Source [id number] 11/26/2020 02:51:00 PM EDT [facility] ([facility]) Name Value Range Interpretation Code Description Data Kaya rce(s) Supporting Document(s) INR in Platelet poor plasma by Coagulation assay 2.6 [facility] ([facility]) ID Date Data Source [id number] 11/26/2020 02:31:00 PM EDT [facility] ([facility]) Name Value Range Interpretation Code Description Data Kaya rce(s) Supporting Document(s) Ferritin [Mass/volume] in Serum or Plasma 52 ng/mL 8-252 [facility] ([facility]) ID Date Data Source [id number] 11/26/2020 02:31:00 PM EDT [facility] ([facility]) Name Value Range Interpretation Code Description Data Kaya rce(s) Supporting Document(s) Total Iron Binding Capacity 350 ug/dL 250-450 [facility] ([facility]) Iron (Fe) 64 ug/dL 50-170 [facility] Percent Saturation 18.3 % 13.2-45.0 [facility] ([facility]) ID Date Data Source [id number] 11/26/2020 02:30:00 PM EDT [facility] ([facility]) Name Value Range Interpretation Code Description Data Kaya rce(s) Supporting Document(s) Glucose [Mass/volume] in Serum or Plasma 255 mg/dL 74-99 [facility] [facility] 100-125 mg/dL PRE-DIABETES/FASTING >126 mg/dL DIABETES/FASTING Urea nitrogen [Mass/volume] in Serum or Plasma 25 mg/dL 7-18 [facility] ([facility]) Creatinine 1.5 mg/dL 0.6-1.3 [facility] ([facility]) Sodium [Moles/volume] in Serum or Plasma 134 meq/L 136-145 [facility] ([facility]) Potassium [Moles/volume] in Serum or Plasma 5.1 meq/L 3.5-5.1 [facility] ([facility]) Chloride [Moles/volume] in Serum or Plasma 101 meq/L 98-107 [facility] ([facility]) Calcium [Mass/volume] in Serum or Plasma 8.9 mg/dL 8.5-10.1 [facility] ([facility]) Glomerular filtration rate/1.73 sq M pre dicted among non-blacks [Volume Rate/Area] in Serum or Plasma by Creatinine-based formula (MDRD) 35 mL/min [facility] ([facility]) Carbon dioxide, total [Moles/volume] in Serum or Plasma 28 meq/L 21 -32 [facility] ([facility]) Glomerular filtration rate/1.73 sq M pre dicted among blacks [Volume Rate/Area] in Serum or Plasma by Creatinine-based formula (MDRD) 42 mL/min [facility] ([facility]) <content>CHRONIC KIDNEY DISEASE STAGING PER NKF</content>
<content></content>
<content>STAGE I & II GFR >= 60 NORMAL TO MILDLY DECREASED</content>
<content>STAGE III GFR 30-59 MODERATELY DECREASED</content>
<content>STAGE IV GFR 15-29 SEVERELY DECREASED</content>
<content>STAGE V GFR <15 VERY LITTLE GFR LEFT</content>
<content>ESRD GFR <15 ON NUMERICAL CONTROL OPERATOR</content>
<content></content> ID Date Data Source [id number] 11/26/2020 02:30:00 PM EDT [facility] ([facility]) Name Value Range Interpretation Code Description Data Kaya rce(s) Supporting Document(s) Glucose mean value [Mass/volume] in Blood Estimated fr om glycated hemoglobin 166 mg/dL 60-110 [email or web address] ) Hemoglobin A1c/Hemoglobin.total in Blood 7.4 % [facility] [email or web address] Lab Result Notes: Pre-Diabetes 5.7 - 6.4 % Diabetes = or > 6.5% ID Date Data Source [id number] 11/26/2020 02:30:00 PM EDT [facility] ([email or web address] Name Value Range Interpretation Code Description Data Kaya rce(s) Supporting Document(s) Leukocytes [#/volume] in Blood by Automated count 6.7 x10*3/UL 4.1-10 .9 [facility] ([place] [email or web address] Hemoglobin [Mass/volume] in Blood 12.3 g/dL 12.0-18.0 [facility] ([place] [email or web address] Erythrocytes [#/volume] in Blood by Automated count 4.12 x10*6/UL 4.2 0-6.30 [facility] ([place] [email or web address] MCH 29.8 pg 26.0-32.0 [facility] ([facility]) MCV 91.1 fL 80.0-97.0 [facility] ([facility]) Hematocrit [Volume Fraction] of Blood by Automated count 37.6 % 3 7.0-51.0 [facility] ([place] [email or web address] Erythrocyte distribution width [Ratio] by Automated count 13.5 % 11.6-13.7 [facility] ([place] [email or web address] MPV 8.3 FL 7.8-11.0 [facility] ([facility]) Platelets [#/volume] in Blood by Automated count 326 x10*3/UL 140-440 [facility] ([place] [email or web address] MCHC 32.6 g/dL 31.0-38.0 [facility] ([facility]) Neut % 83.6 % 37.0-92.0 [facility] ([facility]) Mid % 3.2 % 1.7-9.3 [facility] ([facility]) Lymph % 13.2 % 10.0-58.5 [facility] ([facility]) Mid # 0.2 x10*3/UL 0.1-0.6 [facility] ([facility]) Neut # 5.6 x10*3/UL 2.0-7.8 [facility] ([facility]) Lymph # 0.9 x10*3/UL 0.6-4.1 [facility] ([facility]) ID Date Data Source [id number] 10/29/2020 02:33:00 PM EDT [facility] ([facility]) Name Value Range Interpretation Code Description Data Kaya rce(s) Supporting Document(s) INR in Platelet poor plasma by Coagulation assay 2.5 [facility] ([facility]) ID Date Data Source [id number] 10/22/2020 02:34:00 PM EST [facility] ([facility]) Name Value Range Interpretation Code Description Data Kaya rce(s) Supporting Document(s) INR in Platelet poor plasma by Coagulation assay 4.2 [facility] ([facility]) ID Date Data Source [id number] 09/24/2020 01:40:00 PM EST [facility] ([facility]) Name Value Range Interpretation Code Description Data Kaya rce(s) Supporting Document(s) INR in Platelet poor plasma by Coagulation assay 1.9 [facility] ([facility]) ID Date Data Source [id number] 09/17/2020 11:33:00 AM EST [facility] ([facility] Name Value Range Interpretation Code Description Data Kaya rce(s) Supporting Document(s) Glucose [Mass/volume] in Capillary blood by Glucometer 274 mg/dL 80-115 Above high normal [facility] ([facility] ID Date Data Source [id number] 09/17/2020 11:33:00 AM EST [facility] ([facility]) Name Value Range Interpretation Code Description Data Kaya rce(s) Supporting Document(s) Bedside Glucose 274 mg/dL 80-115 [facility] ([facility]) ID Date Data Source [id number] 09/17/2020 05:59:00 AM EST [facility] ([facility] Name Value Range Interpretation Code Description Data Kaya rce(s) Supporting Document(s) Glucose [Mass/volume] in Capillary blood by Glucometer 213 mg/dL 80-115 Above high normal [facility] ([facility] ID Date Data Source [id number] 09/17/2020 05:59:00 AM EST [facility] ([facility]) Name Value Range Interpretation Code Description Data Kaya rce(s) Supporting Document(s) Bedside Glucose 213 mg/dL 80-115 [facility] ([facility]) ID Date Data Source [id number] 09/16/2020 08:32:00 PM EST [facility] ([facility] Name Value Range Interpretation Code Description Data Kaya rce(s) Supporting Document(s) Glucose [Mass/volume] in Capillary blood by Glucometer 249 mg/dL 80-115 Above high normal [facility] ([facility] ID Date Data Source [id number] 09/16/2020 08:32:00 PM EST [facility] ([facility]) Name Value Range Interpretation Code Description Data Kaya rce(s) Supporting Document(s) Bedside Glucose 249 mg/dL 80-115 [facility] ([facility]) ID Date Data Source [id number] 09/16/2020 04:47:00 PM EST [facility] ([facility] Name Value Range Interpretation Code Description Data Kaya rce(s) Supporting Document(s) Glucose [Mass/volume] in Capillary blood by Glucometer 153 mg/dL 80-115 Above high normal [facility] ([facility] ID Date Data Source [id number] 09/16/2020 04:47:00 PM EST [facility] ([facility]) Name Value Range Interpretation Code Description Data Kaya rce(s) Supporting Document(s) Bedside Glucose 153 mg/dL 80-115 [facility] ([facility]) ID Date Data Source [id number] 09/16/2020 02:24:00 PM EST [facility] ([facility] Name Value Range Interpretation Code Description Data Kaya rce(s) Supporting Document(s) Glucose [Mass/volume] in Capillary blood by Glucometer 135 mg/dL 80-115 Above high normal [facility] ([facility] ID Date Data Source [id number] 09/16/2020 02:24:00 PM EST [facility] ([facility]) Name Value Range Interpretation Code Description Data Kaya rce(s) Supporting Document(s) Bedside Glucose 135 mg/dL 80-115 [facility] ([facility]) ID Date Data Source [id number] 09/16/2020 01:47:00 PM EST [facility] ([facility] Name Value Range Interpretation Code Description Data [facility] rce(s) Supporting Document(s) Surgical pathology study Laboratory test result [facility] ([facility] FINAL DIAGNOSIS Foot, left, transmetatarsal amputation: Acute cellulitis and fasciitis, extending to bone, consistent with osteomyelitis. 09/18/2020 - 1258 CLINICAL DIAGNOSIS Left foot osteomyelitis 09/17/20201329 GROSS DIAGNOSIS Received in formalin labeled "left forefoot bone and tissue" and consists of a forefoot measuring 7.5 x 4.5 x 3.5 cm. with no grossly identified normal digits. Two sites of ulceration measuring 2.5 x 1.5 cm. and 1.0 x 1.0 cm. are noted on the distal end. The proximal end is comprised of four digits with grossly unremarkable bony margins. The soft tissue margin appears viable. House[facility] Home sections of the ulcerated skin and soft with underlying bone are submitted in two blocks after decalcification. -SV 09/17/2020 - 1329 Signed MARY JO WEISS MD 09/18/2020 1409 ID Date Data Source [id number] 09/16/2020 12:01:00 PM EST [facility] ([facility] Name Value Range Interpretation Code Description Data Kaya rce(s) Supporting Document(s) Glucose [Mass/volume] in Capillary blood by Glucometer 142 mg/dL 80-115 Above high normal [facility] ([facility] ID Date Data Source [id number] 09/16/2020 12:01:00 PM EST [facility] ([facility]) Name Value Range Interpretation Code Description Data Kaya rce(s) Supporting Document(s) Bedside Glucose 142 mg/dL 80-115 [facility] ([facility]) ID Date Data Source [id number] 09/16/2020 11:11:00 AM EST [facility] ([facility] Name Value Range Interpretation Code Description Data Kaya rce(s) Supporting Document(s) Prothrombin Time 13.9 s 12.5-14.3 [facility] ([facility] Inr 1.05 [facility] ([facility] THERAPUTIC HUMAN INR VALUES INDICATIONS NORMAL RANGES PROPHYLAXIS/TREATMENT OF: VENOUS THROMBOSIS 2.0-3.0 PULMONARY EMBOLISM 2.0-3.0 PREVENTION OF SYSTEMIC EMBOLISM FROM: TISSUE HEART VALVES 2.0-3.0 ACUTE MYOCARDIAL INFARCTION 2.0-3.0 VALVULAR HEART DISEASE 2.0-3.0 ATRIAL FIBRILLATION 2.0-3.0 MECHANICAL VALVES(HIGH RISK) 2.5-3.5 RECURRENT MYOCARDIAL INFARCTION 2.5-3.5 ID Date Data Source [id number] 09/16/2020 11:11:00 AM EST [facility] ([facility]) Name Value Range Interpretation Code Description Data Kaya rce(s) Supporting Document(s) Prothrombin Time 13.9 s 12.5-14.3 [facility] ([facility]) Inr 1.05 [facility] ([place] [facility] THERAPUTIC HUMAN INR VALUES INDICATIONS NORMAL RANGES PROPHYLAXIS/TREATMENT OF: VENOUS THROMBOSIS 2.0-3.0 PULMONARY EMBOLISM 2.0-3.0 PREVENTION OF SYSTEMIC EMBOLISM FROM: TISSUE HEART VALVES 2.0-3.0 ACUTE MYOCARDIAL INFARCTION 2.0-3.0 VALVULAR HEART DISEASE 2.0-3.0 ATRIAL FIBRILLATION 2.0-3.0 MECHANICAL VALVES(HIGH RISK) 2.5-3.5 RECURRENT MYOCARDIAL INFARCTION 2.5-3.5 ID Date Data Source [id number] 09/11/2020 12:00:00 PM EST [facility] Name Value Range Interpretation Code Description Data Kyaa rce(s) Supporting Document(s) SARS coronavirus 2 RNA Not Detected [facility] [place] This lab was ordered by [facility] and reported by [facility]. ID Date Data Source [id number] 09/09/2020 07:15:00 AM EST [facility] ([facility]) Name Value Range Interpretation Code Description Data Kaya rce(s) Supporting Document(s) White Blood Count 6.3 10 4.0-10.0 [facility] ([facility]) Red Blood Count 3.84 10 4.00-5.40 [facility] ([facility]) Hemoglobin 11.3 g/dL 12.0-15.5 [facility] [facility] Hematocrit 37.7 % 36.0-47.0 [facility] ([facility]) Mean Corpuscular Volume 98.2 fl 80.0-96.0 [facility] ([facility]) Mean Corpuscular HGB Conc 30.0 g/dL 32.0-36.5 MEDE NT ([facility]) Mean Corpuscular Hemoglobin 29.4 pg 27.0-33.0 ND D[facility] ([facility]) Platelet Count, Automated 328 10 150-450 [facility] NT ([facility]) Red Cell Distribution Width 15.1 % 11.5-14.5 ME [facility] ([facility]) Nucleated Red Blood Cell % 0.0 % 0-0 [facility] ([facility]) ID Date Data Source [id number] 09/09/2020 07:15:00 AM EST [facility] ([facility]) Name Value Range Interpretation Code Description Data Kaya rce(s) Supporting Document(s) Prothrombin Time 19.9 s 12.5-14.3 [facility] ([facility]) Inr 1.65 [facility] ([place] [facility] THERAPUTIC HUMAN INR VALUES INDICATIONS NORMAL RANGES PROPHYLAXIS/TREATMENT OF: VENOUS THROMBOSIS 2.0-3.0 PULMONARY EMBOLISM 2.0-3.0 PREVENTION OF SYSTEMIC EMBOLISM FROM: TISSUE HEART VALVES 2.0-3.0 ACUTE MYOCARDIAL INFARCTION 2.0-3.0 VALVULAR HEART DISEASE 2.0-3.0 ATRIAL FIBRILLATION 2.0-3.0 MECHANICAL VALVES(HIGH RISK) 2.5-3.5 RECURRENT MYOCARDIAL INFARCTION 2.5-3.5 ID Date Data Source [id number] 09/09/2020 07:15:00 AM EST [facility] ([facility]) Name Value Range Interpretation Code Description Data Kaya rce(s) Supporting Document(s) Glucose, Fasting 108 mg/dL 70-100 [facility] ([facility]) Blood Urea Nitrogen 27 mg/dL 7-18 [facility] ([facility]) Creatinine For GFR 1.47 mg/dL 0.55-1.30 [facility] ([facility]) Glomerular Filtration Rate 37.9 [facility] ([facility]) <content>Units are mL/min/1.73 m2</content>
<content></content>
<content>Chronic Kidney Disease Staging per NKF:</content>
<content></content>
<content>Stage I & II GFR >=60 Normal to Mildly Decreased</content>
<content>Stage III GFR 30- 59 Moderately Decreased</content>
<content>Stage IV GFR 15-29 Severely Decreased</content>
<content>Stage V GFR <15 Very Little GFR Left</content>
<content>ESRD GFR <15 on NUMERICAL CONTROL OPERATOR</content>
<content></content> Sodium Level 137 meq/L 136-145 [facility] ([facility]) Potassium Serum 4.8 meq/L 3.5-5.1 [facility] ([facility]) Chloride Level 104 meq/L 98-107 [facility] ([facility]) Carbon Dioxide Level 28 meq/L 21-32 [facility] ([facility]) Anion Gap 5 meq/L 8-16 [facility] ([place] [facility]) Calcium Level 8.6 mg/dL 8.8-10.2 [facility] ([facility]) ID Date Data Source [id number] 09/03/2020 11:25:00 AM EST [facility] ([facility]) Name Value Range Interpretation Code Description Data Kaya rce(s) Supporting Document(s) Prothrombin Time 22.0 s 12.5-14.3 [facility] ([facility]) Inr 1.88 [facility] THERAPUTIC HUMAN INR VALUES INDICATIONS NORMAL RANGES PROPHYLAXIS/TREATMENT OF: VENOUS THROMBOSIS 2.0-3.0 PULMONARY EMBOLISM 2.0-3.0 PREVENTION OF SYSTEMIC EMBOLISM FROM: TISSUE HEART VALVES 2.0-3.0 ACUTE MYOCARDIAL INFARCTION 2.0-3.0 VALVULAR HEART DISEASE 2.0-3.0 ATRIAL FIBRILLATION 2.0-3.0 MECHANICAL VALVES(HIGH RISK) 2.5-3.5 RECURRENT MYOCARDIAL INFARCTION 2.5-3.5 ID Date Data Source [id number] 08/25/2020 11:40:00 AM EST [facility] ([facility]) Name Value Range Interpretation Code Description Data Kaya rce(s) Supporting Document(s) INR in Platelet poor plasma by Coagulation assay 5.3 [facility] ([facility] [place] [facility]) ID Date Data Source [id number] 08/25/2020 11:38:00 AM EST [facility] ([facility]) Name Value Range Interpretation Code Description Data Kaya rce(s) Supporting Document(s) Leukocytes [#/volume] in Blood by Automated count 9.1 x10*3/UL 4.1-10 .9 [facility] ([facility]) NOTE: CBC VERIFIED Erythrocytes [#/volume] in Blood by Automated count 3.73 x10*6/UL 4.2 0-6.30 [facility] ([facility] [place] [facility]) Hemoglobin [Mass/volume] in Blood 11.4 g/dL 12.0-18.0 [facility] ([facility]) Hematocrit [Volume Fraction] of Blood by Automated count 33.5 % 3 7.0-51.0 [facility] ([facility]) MCV 89.8 fL 80.0-97.0 [facility] [facility] MCH 30.4 pg 26.0-32.0 [facility] ([place] [facility]) MCHC 33.9 g/dL 31.0-38.0 [facility] ([facility]) Erythrocyte distribution width [Ratio] by Automated count 14.6 % 11.6-13.7 [facility] ([facility]) Platelets [#/volume] in Blood by Automated count 366 x10*3/UL 140-440 [facility] ([facility]) MPV 7.9 FL 7.8-11.0 [facility] ([place] [facility] Lymph % 11.1 % 10.0-58.5 [facility] ([place] [facility] Mid % 3.5 % 1.7-9.3 [facility] ([place] [facility] Neut % 85.4 % 37.0-92.0 [facility] ([facility]) Lymph # 1.0 x10*3/UL 0.6-4.1 [facility] ([facility]) Mid # 0.3 x10*3/UL 0.1-0.6 [facility] ([facility]) Neut # 7.8 x10*3/UL 2.0-7.8 [facility] ([facility]) ID Date Data Source [id number] 08/25/2020 11:38:00 AM EST [facility] ([facility]) Name Value Range Interpretation Code Description Data Kyaa rce(s) Supporting Document(s) Prothrombin Time 39.0 s 12.5-14.3 [facility] ([facility]) Inr 3.88 [facility] ([facility]) THERAPUTIC HUMAN INR VALUES INDICATIONS NORMAL RANGES PROPHYLAXIS/TREATMENT OF: VENOUS THROMBOSIS 2.0-3.0 PULMONARY EMBOLISM 2.0-3.0 PREVENTION OF SYSTEMIC EMBOLISM FROM: TISSUE HEART VALVES 2.0-3.0 ACUTE MYOCARDIAL INFARCTION 2.0-3.0 VALVULAR HEART DISEASE 2.0-3.0 ATRIAL FIBRILLATION 2.0-3.0 MECHANICAL VALVES(HIGH RISK) 2.5-3.5 RECURRENT MYOCARDIAL INFARCTION 2.5-3.5 ID Date Data Source [id number] 08/11/2020 11:25:00 AM EST [facility] ([facility]) Name Value Range Interpretation Code Description Data Kaya rce(s) Supporting Document(s) INR in Platelet poor plasma by Coagulation assay 3.7 [facility] ([facility]) ID Date Data Source [id number] 07/08/2020 12:00:00 AM EST [facility] Stephanie Murphy DO Patient Name: SPEEDY DUEÑAS[age] [facility] Date of : 1955[address] Date of Exam: 07/08/2020SO Owens [id number]#: Fax: [phone] EXAM: US ABDOMEN, LIMITED SINGLE ORGAN,QUADRANTCLINICAL INFORMATION: Elevated LFT's.The patient is status post cholecystectomy.Multiple ultrasonographic images of the liver shows diffuse increased echosthroughout the hepatic parenchyma without evidence of a mass or ductaldilatation. The common bile duct measures approximately 6 mm in itsgreatest transverse dimension. Images of the pancreatic region show nogross abnormality.The imaged portion of the right kidney is unremarkable.IMPRESSION:Status post cholecystectomy. Fatty infiltration of the liver.Accredited by the [employer] in General Ultrasound.BREANNA Joseph/Ana you for referring SPEEDY DUEÑAS to our office. Electronically Signed - SUJIT JON DO 07/08/20 15:31 Name Value Range Interpretation Code Description Data Kaya rce(s) Supporting Document(s) ID Date Data Source [id number] 07/06/2020 11:38:00 AM EST [facility] ([facility]) Name Value Range Interpretation Code Description Data Kaya rce(s) Supporting Document(s) INR in Platelet poor plasma by Coagulation assay 2.3 [facility] ([facility]) ID Date Data Source [id number] 06/19/2020 02:44:00 PM EST [facility] ([facility]) Name Value Range Interpretation Code Description Data Kaya rce(s) Supporting Document(s) Iron (Fe) 55 ug/dL 50-170 [facility] [facility]) Total Iron Binding Capacity 394 ug/dL 250-450 [facility] ([facility] [facility]) Percent Saturation 14.0 % 13.2-45.0 [facility] ([facility]) ID Date Data Source [id number] 06/19/2020 02:44:00 PM EST [facility] ([facility]) Name Value Range Interpretation Code Description Data Kaya rce(s) Supporting Document(s) Hepatitis C virus Ab [Units/volume] in Serum by Immunoassay 0.1 INDEX [facility] ([facility] [place] [facility]) Negative Not infected with HCV, unless recent infection is suspected or other evidence exists to indicate HCV infection. Ferritin [Mass/volume] in Serum or Plasma 43 ng/mL 8-252 [facility] ([facility] [place] [facility]) Cobalamin (Vitamin B12) [Mass/volume] in Serum or Plasma 524 pg/mL 2 47-911 [facility] ([facility]) VITAMIN B12 NORMAL RANGE NORMAL 247 - 911 PG/ML INDETERMINATE 211 - 246 PG/ML DEFICIENT LESS THAN 211 PG/ML ID Date Data Source [id number] 06/19/2020 02:42:00 PM EST [facility] ([facility]) Name Value Range Interpretation Code Description Data Kaya rce(s) Supporting Document(s) Urea nitrogen [Mass/volume] in Serum or Plasma 18 mg/dL 7-18 [facility] ([facility] [place] [facility]) Glucose [Mass/volume] in Serum or Plasma 141 mg/dL 74-99 [facility] ([place] [facility]) 100-125 mg/dL PRE-DIABETES/FASTING >126 mg/dL DIABETES/FASTING Creatinine 1.3 mg/dL 0.6-1.3 [facility] ([facility]) Sodium [Moles/volume] in Serum or Plasma 136 meq/L 136-145 [facility] ([place] [facility]) Potassium [Moles/volume] in Serum or Plasma 4.4 meq/L 3.5-5.1 [facility] ([place] [facility]) Chloride [Moles/volume] in Serum or Plasma 101 meq/L 98-107 [facility] ([place] [facility]) Carbon dioxide, total [Moles/volume] in Serum or Plasma 27 meq/L 21 -32 [facility] ([place] [facility]) Calcium [Mass/volume] in Serum or Plasma 9.0 mg/dL 8.5-10.1 [facility] ([place] [facility]) Alkaline phosphatase isoenzyme [Units/volume] in Serum or Pl asma 176 mg/dL 46-116 [facility] ([place] [facility]) NOTE: ALK PHOS,T.BILI AND ALBUMIN VERIFIED Total Bilirubin 1.4 mg/dL 0.2-1.0 [facility] ([facility]) Aspartate aminotransferase [Enzymatic activity/volume] in Serum or Plasma 16 U/L 15-37 [facility] ([facility] [place] [facility] ) Albumin [Mass/volume] in Serum or Plasma 3.1 g/dL 3.4-5.0 [facility] ([facility] [place] [facility]) Alanine aminotransferase [Enzymatic activity/volume] in Seru m or Plasma 15 U/L 12-78 [facility] ([facility] [facility]) A/G Ratio 0.69 CALC 1.00-1.90 [facility] ([place] [facility]) Proteinase 3 Ab [Units/volume] in Serum 7.6 g/dL 6.4-8.2 [facility] ([facility] [place] [facility]) Glomerular filtration rate/1.73 sq M pre dicted among non-blacks [Volume Rate/Area] in Serum or Plasma by Creatinine-based formula (MDRD) 41 mL/min [facility] ([place] [facility]) Glomerular filtration rate/1.73 sq M pre dicted among blacks [Volume Rate/Area] in Serum or Plasma by Creatinine-based formula (MDRD) 50 mL/min [facility] [email or web address] <content>CHRONIC KIDNEY DISEASE STAGING PER NKF</content>
<content></content>
<content>STAGE I & II GFR >= 60 NORMAL TO MILDLY DECREASED</content>
<content>STAGE III GFR 30-59 MODERATELY DECREASED</content>
<content>STAGE IV GFR 15-29 SEVERELY DECREASED</content>
<content>STAGE V GFR <15 VERY LITTLE GFR LEFT</content>
<content>ESRD GFR <15 ON NUMERICAL CONTROL OPERATOR</content>
<content></content> ID Date Data Source [id number] 06/19/2020 02:42:00 PM EST [facility] ([facility]) Name Value Range Interpretation Code Description Data Kaya rce(s) Supporting Document(s) Leukocytes [#/volume] in Blood by Automated count 7.8 x10*3/UL 4.1-10 .9 [facility] ([facility] [place] [facility]) Erythrocytes [#/volume] in Blood by Automated count 4.41 x10*6/UL 4.2 0-6.30 [facility] ([facility] [facility]) Hemoglobin [Mass/volume] in Blood 12.7 g/dL 12.0-18.0 [facility] ([facility] [place] [facility]) Hematocrit [Volume Fraction] of Blood by Automated count 38.9 % 3 7.0-51.0 [facility] ([facility]) MCV 88.1 fL 80.0-97.0 [facility] [facility] MCH 28.7 pg 26.0-32.0 [facility] [facility]) MCHC 32.6 g/dL 31.0-38.0 [facility] ([place] [facility]) Erythrocyte distribution width [Ratio] by Automated count 14.7 % 11.6-13.7 [facility] ([facility]) Platelets [#/volume] in Blood by Automated count 338 x10*3/UL 140-440 [facility] ([facility]) MPV 8.1 FL 7.8-11.0 [facility] [facility] Lymph % 15.8 % 10.0-58.5 [facility] [facility] Mid % 4.3 % 1.7-9.3 [facility] [facility] Neut % 79.9 % 37.0-92.0 [facility] [facility] Lymph # 1.2 x10*3/UL 0.6-4.1 [facility] ([facility]) Mid # 0.4 x10*3/UL 0.1-0.6 [facility] ([facility]) Neut # 6.2 x10*3/UL 2.0-7.8 [facility] ([facility]) ID Date Data Source [id number] 06/05/2020 12:01:00 PM EDT [facility] ([facility]) Name Value Range Interpretation Code Description Data Kaya rce(s) Supporting Document(s) INR in Platelet poor plasma by Coagulation assay 2.4 [facility] ([facility]) ID Date Data Source [id number] 05/05/2020 11:43:00 AM EDT [facility] ([facility]) Name Value Range Interpretation Code Description Data Kaya rce(s) Supporting Document(s) INR in Platelet poor plasma by Coagulation assay 2.6 [facility] ([facility]) ID Date Data Source [id number] 04/27/2020 11:18:00 AM EDT [facility] ([facility]) Name Value Range Interpretation Code Description Data Kaya rce(s) Supporting Document(s) INR in Platelet poor plasma by Coagulation assay 4.0 [facility] ([facility]) ID Date Data Source [id number] 04/23/2020 12:00:00 AM EDT [facility] Stephanie Murphy DO Patient Name: SPEEDY [id number] Date of : 1955[address] Date of Exam: 04/23/2020[place] [id number]#: Fax: [phone] EXAM: MAMMO SCREENING WITH CADCLINICAL INFORMATION: Screening.Based on the personal and family history information your patient suppliedat the time of imaging, her lifetime risk of breast cancer estimated by theTyrer-Cuzick model is 3.2%. Given that this patient has less than 20% TCrisk score, no further medical management is currently recommended at thistime.Digital screening (2D) mammography was performed bilaterally in the CC andMLO projections. Additionally, breast tomosynthesis (3D mammography) wasperformed bilaterally in the CC and MLO projections. Today's exam wascompared to the prior exam(s).By history, the patient has no complaints of a palpable breast abnormalityor other significant breast complaints.The breasts are unchanged in size and shape. There are no bebo-soft tissuedensities or spiculated masses. There is no i nternal architecturaldistortion. There are no suspicious bebo-calcific clusters. Skinthickening or nipple retraction is not present.Benign calcifications are again seen bilaterally.The Volpara volumetric breast density category is B, there are scatteredareas of fibroglandular density.IMPRESSION:BI-RADS Category 2 - Benign Finding(s). Stable mammogram. There is noevidence of malignant alteration of the breasts. Followup examinationrecommended in one year.This mammogram was read with the assistance of [employer], an FDAapproved computer aided detection system for mammography.Negative x-ray reports should not delay surgical consultation if a dominantor clinically suspicious mass is present.Not all breast cancers can be identified by mammography. Therefore, werecommend that you continue to perform regular breast self-examination andphysical examination and then promptly contact your physician of anyconcerns or changes.Adenosis and dense breasts may obscure an underlying neoplasm.BREANNA Joseph/Iggy you for referring SPEEDY DUEÑAS to our office. Electronically Signed - SUJIT JON DO 04/24/20 8:53 Name Value Range Interpretation Code Description Data Kaya rce(s) Supporting Document(s) ID Date Data Source [id number] 04/16/2020 10:27:00 AM EDT [facility] ([facility]) Name Value Range Interpretation Code Description Data Kaya rce(s) Supporting Document(s) Urea nitrogen [Mass/volume] in Serum or Plasma 17 mg/dL 7-18 [facility] ([facility]) Glucose [Mass/volume] in Serum or Plasma 120 mg/dL 74-99 [facility] ([facility]) 100-125 mg/dL PRE-DIABETES/FASTING >126 mg/dL DIABETES/FASTING Creatinine 1.4 mg/dL 0.6-1.3 [facility] Carbon dioxide, total [Moles/volume] in Serum or Plasma 25 meq/L 21 -32 [facility] ([facility]) Sodium [Moles/volume] in Serum or Plasma 130 meq/L 136-145 [facility] ([facility]) NOTE: RESULT VERIFIED. Potassium [Moles/volume] in Serum or Plasma 4.9 meq/L 3.5-5.1 [facility] ([facility]) Chloride [Moles/volume] in Serum or Plasma 96 meq/L 98-107 [facility] ([facility]) Total Bilirubin 1.3 mg/dL 0.2-1.0 [facility] ([facility]) Alkaline phosphatase isoenzyme [Units/volume] in Serum or Pl asma 346 mg/dL 46-116 [facility] ([facility]) Calcium [Mass/volume] in Serum or Plasma 8.4 mg/dL 8.5-10.1 [facility] ([facility]) NOTE: RESULT VERIFIED. Alanine aminotransferase [Enzymatic activity/volume] in Seru m or Plasma 27 U/L 12-78 [facility] ([facility]) Aspartate aminotransferase [Enzymatic activity/volume] in Serum or Plasma 20 U/L 15-37 [facility] ([facility] ) Proteinase 3 Ab [Units/volume] in Serum 6.7 g/dL 6.4-8.2 [facility] ([facility]) A/G Ratio 0.72 CALC 1.00-1.90 [facility] [facility] Albumin [Mass/volume] in Serum or Plasma 2.8 g/dL 3.4-5.0 [facility] ([facility]) NOTE: RESULT VERIFIED. Glomerular filtration rate/1.73 sq M pre dicted among non-blacks [Volume Rate/Area] in Serum or Plasma by Creatinine-based formula (MDRD) 38 mL/min [facility] [email or web address] Glomerular filtration rate/1.73 sq M pre dicted among blacks [Volume Rate/Area] in Serum or Plasma by Creatinine-based formula (MDRD) 46 mL/min [facility] [email or web address] <content>CHRONIC KIDNEY DISEASE STAGING PER NKF</content>
<content></content>
<content>STAGE I & II GFR >= 60 NORMAL TO MILDLY DECREASED</content>
<content>STAGE III GFR 30-59 MODERATELY DECREASED</content>
<content>STAGE IV GFR 15-29 SEVERELY DECREASED</content>
<content>STAGE V GFR <15 VERY LITTLE GFR LEFT</content>
<content>ESRD GFR <15 ON NUMERICAL CONTROL OPERATOR</content>
<content></content> ID Date Data Source [id number] 04/16/2020 10:27:00 AM EDT [facility] ([facility]) Name Value Range Interpretation Code Description Data Kaya rce(s) Supporting Document(s) Glucose mean value [Mass/volume] in Blood Estimated fr om glycated hemoglobin 134 mg/dL 60-110 [facility] ([facility] ) Hemoglobin A1c/Hemoglobin.total in Blood 6.3 g/dL 4.8-5.6 [facility] [email or web address] Lab Result Notes: Pre-Diabetes 5.7 - 6.4 % Diabetes = or > 6.5% ID Date Data Source [id number] 04/16/2020 10:27:00 AM EDT [facility] ([facility]) Name Value Range Interpretation Code Description Data Kaya rce(s) Supporting Document(s) Erythrocytes [#/volume] in Blood by Automated count 3.86 x10*6/UL 4.2 0-6.30 [facility] [email or web address] Leukocytes [#/volume] in Blood by Automated count 8.4 x10*3/UL 4.1-10 .9 [facility] [email or web address] MCV 85.4 fL 80.0-97.0 [facility] ([facility]) Hemoglobin [Mass/volume] in Blood 10.9 g/dL 12.0-18.0 [email or web address] Hematocrit [Volume Fraction] of Blood by Automated count 32.9 % 3 7.0-51.0 [email or web address] MCHC 33.0 g/dL 31.0-38.0 [facility] ([facility]) Erythrocyte distribution width [Ratio] by Automated count 13.4 % 11.6-13.7 [facility] [email or web address] MCH 28.2 pg 26.0-32.0 [facility] ([facility]) MPV 7.8 FL 7.8-11.0 [facility] ([facility]) Lymph % 10.8 % 10.0-58.5 [facility] ([facility]) Platelets [#/volume] in Blood by Automated count 360 x10*3/UL 140-440 [facility] ([facility]) Lymph # 0.9 x10*3/UL 0.6-4.1 [facility] ([facility]) Neut % 85.2 % 37.0-92.0 [facility] ([facility]) Mid % 4.0 % 1.7-9.3 [facility] ([facility]) Mid # 0.3 x10*3/UL 0.1-0.6 [facility] ([facility]) Neut # 7.2 x10*3/UL 2.0-7.8 [facility] ([facility]) ID Date Data Source [id number] 04/16/2020 10:27:00 AM EDT [facility] ([facility]) Name Value Range Interpretation Code Description Data Kaya rce(s) Supporting Document(s) Hemoglobin A1c/Hemoglobin.total in Blood Laboratory test result [facility] [email or web address] ID Date Data Source [id number] 04/15/2020 08:00:00 PM EDT [facility] ([facility]) Name Value Range Interpretation Code Description Data Kaya rce(s) Supporting Document(s) Urine Creatinine 75.6 mg/dL 30.0-125.0 [facility] ([facility]) Microalbumin Urine 115.2 mg/L 1.3-20.0 [facility] ([facility]) Microalb/Creat Ratio 152.4 ug/mg 0.0-30.0 [facility] ([facility]) ID Date Data Source [id number] 04/13/2020 02:09:00 PM EDT [facility] ([facility]) Name Value Range Interpretation Code Description Data Kaya rce(s) Supporting Document(s) INR in Platelet poor plasma by Coagulation assay 1.7 [facility] ([facility]) ID Date Data Source [id number] 04/13/2020 01:54:00 PM EDT [facility] ([facility]) Name Value Range Interpretation Code Description Data Kaya rce(s) Supporting Document(s) Hemoglobin A1c/Hemoglobin.total in Blood Laboratory test result [facility] ([facility]) ID Date Data Source [id number] 04/08/2020 10:28:34 PM EDT [facility] Name Value Range Interpretation Code Description Data Kaya rce(s) Supporting Document(s) &PDF [facility] XMCHOs3uMhRDGmXt27/GTFssOWPxz6DnEYspZEy4SFhpKIDqL3LjiFavQDNDTUBBFFzEEAPKZ7HALEVy vci [file] ICAgICAgICAgICAgICAgICAgICAgICAgICAgICAgICAgICAgICAgICAgICAgICAgICAgDQogICAgICAg ICAgICAgICAgICAgICAgICAgICAgICAgICAgICAgIC AgICAgICAgICAgICAgICAgICAgICAgICAgICAgICAgICAgICAgICAgICAgICAgICAgICAgICAgICAgIC AgDQogICAgICAgICAgICAgICAgICAgICAgICAgICAgICAgICAgICAgICAgICAgICAgICAgICAgICAgIC AgICAgICAgICAgICAgICAgICAgICAgICAgICAgICAg ICAgICAgICAgICAgDQogICAgICAgICAgICAgICAgICAgICAgICAgICAgICAgICAgICAgICAgICAgICAg ICAgICAgICAgICAgICAgICAgICAgICAgICAgICAgICAgICAgICAgICAgICAgICAgICAgICAgDQogICAg ICAgICAgICAgICAgICAgICAgICAgICAgICAgICAgIC AgICAgICAgICAgICAgICAgICAgICAgICAgICAgICAgICAgICAgICAgICAgICAgICAgICAgICAgICAgIC AgICAgDQogICAgICAgICAgICAgICAgICAgICAgICAgICAgICAgICAgICAgICAgICAgICAgICAgICAgIC AgICAgICAgICAgICAgICAgICAgICAgICAgICAgICAg ICAgICAgICAgICAgICAgDQogICAgICAgICAgICAgICAgICAgICAgICAgICAgICAgICAgICAgICAgICAg ICAgICAgICAgICAgICAgICAgICAgICAgICAgICAgICAgICAgICAgICAgICAgICAgICAgICAgICAgDQog ICAgICAgICAgICAgICAgICAgICAgICAgICAgICAgIC AgICAgICAgICAgICAgICAgICAgICAgICAgICAgICAgICAgICAgICAgICAgICAgICAgICAgICAgICAgIC AgICAgICAgDQogICAgICAgICAgICAgICAgICAgICAgICAgICAgICAgICAgICAgICAgICAgICAgICAgIC AgICAgICAgICAgICAgICAgICAgICAgICAgICAgICAg ICAgICAgICAgICAgICAgICAgDQogICAgICAgICAgICAgICAgICAgICAgICAgICAgICAgICAgICAgICAg ICAgICAgICAgICAgICAgICAgICAgICAgICAgICAgICAgICAgICAgICAgICAgICAgICAgICAgICAgICAg TAz8G6emVQAtSNHnPI9oBKo8Ut6+VGlMWrKmSFS1wq CocZ6HZK0lp1SePWrjNMAmo6HwIBt2IK8JKUFtRFrhLE4LOShqqk3URZOqPMRofCPRp5axZcCqRXH3TK KuJltzEB2BZOIzR3cbdjWbKKXtWKXITUfdFFSUVT1FNfSkN8CpwW80YAAHTb9+DQplbmRvYmoNCjMzID Rna3TnPRa5AG7MBXIdNOekPY0ZCKZzzG8sCSctAK7X BtWoQCQkAVITYwGiM31zeGQmYGr1P3QsBtMhKZRxUjrvLQSmJVktQmNnJQZvVfFoIJcaNP2+ID4+DQog TQ4WBLjpyfQfNQXjLq0ISFZnUYN2KDVwpIZoUiLiUHTJMXgoSL6EnWSdDWI1lR2qJSnlVUEkMUZrK6pB WgLfsSnvCC59dRighsUcuSFeFXn+Gl7LPG4uf2PrTN t3gxOgLPffKAR5DCgtDPDjGYAdHGLtQVG0NIE3NRBZOhNbFKCjMYNlQMsaKBXrVSYvsd8EPFQmGHZ8Un A9MgDnZNOnLCOxZVgqXBOtEGu3YCE0BUHyYNDsHE5NOpFwAKGlVVJyVFQtMUSoXRMegg9FCWZuFDHzRj B2LUNzKZXlIQKiIPigOUZcKLGgOgfmOILrPDLsHW6Y JqSwGKCiNPK8TXddQXQcHCRwmk6SIZHaNLAgBlO9FxIvXMNwDSDaRUokJBJkWPN8NPYdGEDnVPJlKQ1I RxKcOPUoCQsqZSddWSSeLSOrof8IWOYhQPCiFwMhJNScDPKgFBKxFUxxWOYoJMW0SAt3ZGIpNSMsKA3V FjWeKMAbBRn0NXCpUFEoNNFnxv3NMPMiPSRaAGt9NI VjFLGlCUFuLQoxWIKjLOBoXbT1HWDpMELaLA0APjUdEMPmZZPsARNyEJAjIMNouv3BOFAnXFRjZTV4Bz MgVIRkOPTlXYxlBGUlZIB1EHRfZGAtGJGmPA8KVwJtZNWlYER4FIFdBYOyHGNqub4APLDoLUHsXQL6Si AwGBNzINPgJOqmTTFwZVB7Gbk6BEGzLTDpLP5UIyRp BZGjPWJ6ZTQiOSDnXQNqxu4HOWGeZTMvUJKjPeDuLWYwVUKpMHadZFXvMCV3HopoUYGcQTInYH7PXzXs SKJsBwY0VARpTZAbCAReyx7JZHTbQAW3AAw2OXIpXKLjEIIgHTpiAAIvMCI1PmH2ILJmOZQjOX8RTuSx HGTlUwY1CpNpFFBgONHdvi7LHVZrHEI5YFd1VCUuUG KaIPTlOHifJWEoFPt4DKB0OHRrDAOuOM7CUjAhAWEwNCk1KdHbZJDqHXRtqw7GJMFvZMN9SNCuCJMgYV NlBQMcWGqyHAGeWGc7JoPlDYBzMUEcPZ2NFxFwUBqcOKDOGfw5CThgG5s1PUDnBU6BD8Sdh9SwFnSwQN YGAKtqEM0rgzWxSBXpOt2YM5hWSpboMJY7WPIvHORi OjN8WFU1VbR3PhBhUDO2HqXmMZPvCV9uPKRsZeKrOGSjUeVlNpMgDtmdYNCdGHN0KEwxSmAcXgHoVfAy WM0ZHy7KHnN4ARM6oHPeBq6HCNm2MgiIWyQuPA8AJZr= Procedure Social History Code Duration Value Status Description Data Source(s ) Smoking 05/26/2021 12:00:00 AM EDT Never Smoker completed Never S moker eCW1 ([facility]) Smoking 05/12/2021 12:00:00 AM EDT Never Smoker completed Never S moker eCW1 ([facility]) Smoking 04/28/2021 12:00:00 AM EDT Never Smoker completed Never S moker eCW1 ([facility]) Smoking 04/07/2021 12:00:00 AM EDT Never Smoker completed Never S moker eCW1 ([facility]) Smoking 04/07/2021 12:00:00 AM EDT Never Smoker completed Never S moker eCW1 ([facility]) Smoking 03/24/2021 12:00:00 AM EDT Never Smoker completed Never S moker eCW1 ([facility]) Smoking 03/24/2021 12:00:00 AM EDT Never Smoker completed Never S moker eCW1 ([facility]) Smoking 03/17/2021 12:00:00 AM EDT Never Smoker completed Never S moker eCW1 ([facility]) Smoking 03/04/2021 12:00:00 AM EDT Never Smoker completed Never S moker eCW1 ([facility]) Smoking 02/24/2021 12:00:00 AM EDT Never Smoker completed Never S moker eCW1 ([facility]) Smoking 02/17/2021 12:00:00 AM EDT Never Smoker completed Never S moker eCW1 ([facility]) Smoking 02/17/2021 12:00:00 AM EDT Never Smoker completed Never S moker eCW1 ([facility]) Smoking 02/03/2021 12:00:00 AM EDT Never Smoker completed Never S moker eCW1 ([facility]) Smoking 02/03/2021 12:00:00 AM EDT Never Smoker completed Never S moker eCW1 ([facility]) Smoking 02/03/2021 12:00:00 AM EDT Never Smoker completed Never S moker eCW1 ([facility]) Smoking 01/21/2021 12:00:00 AM EDT Never Smoker completed Never S moker eCW1 ([facility]) Smoking 01/07/2021 12:00:00 AM EDT Never Smoker completed Never S moker eCW1 ([facility]) Smoking 01/07/2021 12:00:00 AM EDT Never Smoker completed Never S moker eCW1 ([facility]) Smoking 12/24/2020 12:00:00 AM EDT Never Smoker completed Never S moker eCW1 ([facility]) Smoking 12/24/2020 12:00:00 AM EDT Never Smoker completed Never S moker eCW1 ([facility]) Smoking 2020 12:00:00 AM EDT Never Smoker completed Never S moker eCW1 ([facility]) Smoking 2020 12:00:00 AM EDT Never Smoker completed Never S moker eCW1 ([facility]) Smoking 12/21/2020 12:00:00 AM EDT Never Smoker completed Never S moker eCW1 ([facility]) Smoking 12/18/2020 12:00:00 AM EDT Never Smoker completed Never S moker eCW1 ([facility]) Smoking 12/18/2020 12:00:00 AM EDT Never Smoker completed Never S moker eCW1 ([facility]) Smoking 12/17/2020 12:00:00 AM EDT Never Smoker completed Never S moker eCW1 ([facility]) Smoking 12/15/2020 12:00:00 AM EDT Never Smoker completed Never S moker eCW1 ([facility]) Smoking 12/11/2020 12:00:00 AM EDT Never Smoker completed Never S moker eCW1 ([facility]) Smoking 12/10/2020 12:00:00 AM EDT Never Smoker completed Never S moker eCW1 ([facility]) Smoking 12/09/2020 12:00:00 AM EDT Never Smoker completed Never S moker eCW1 ([facility]) Smoking 12/09/2020 12:00:00 AM EDT Never Smoker completed Never S moker eCW1 ([facility]) Smoking 12/08/2020 12:00:00 AM EDT Never Smoker completed Never S moker eCW1 ([facility]) Smoking 12/08/2020 12:00:00 AM EDT Never Smoker completed Never S moker eCW1 ([facility]) Smoking 12/04/2020 12:00:00 AM EDT Never Smoker completed Never S moker eCW1 ([facility]) Smoking 12/02/2020 12:00:00 AM EDT Never Smoker completed Never S moker eCW1 ([facility]) Smoking 12/02/2020 12:00:00 AM EDT Never Smoker completed Never S moker eCW1 ([facility]) Smoking 12/02/2020 12:00:00 AM EDT Never Smoker completed Never S moker eCW1 ([facility]) Smoking 11/30/2020 12:00:00 AM EDT Never Smoker completed Never S moker eCW1 ([facility]) Smoking 11/30/2020 12:00:00 AM EDT Never Smoker completed Never S moker eCW1 ([facility]) Smoking 11/26/2020 12:00:00 AM EDT Never Smoker completed Never S moker eCW1 ([facility]) Smoking 11/26/2020 12:00:00 AM EDT Never Smoker completed Never S moker eCW1 ([facility]) Smoking 11/26/2020 12:00:00 AM EDT Never Smoker completed Never S moker eCW1 ([facility]) Smoking 11/24/2020 12:00:00 AM EDT Never Smoker completed Never S moker eCW1 ([facility]) Smoking 11/24/2020 12:00:00 AM EDT Never Smoker completed Never S moker eCW1 ([facility]) Smoking 11/24/2020 12:00:00 AM EDT Never Smoker completed Never S moker eCW1 ([facility]) Smoking 11/20/2020 12:00:00 AM EDT Never Smoker completed Never S moker eCW1 ([facility]) Smoking 11/20/2020 12:00:00 AM EDT Never Smoker completed Never S moker eCW1 ([facility]) Smoking 11/18/2020 12:00:00 AM EDT Never Smoker completed Never S moker eCW1 ([facility]) Smoking 11/17/2020 12:00:00 AM EDT Never Smoker completed Never S moker eCW1 ([facility]) Smoking 11/17/2020 12:00:00 AM EDT Never Smoker completed Never S moker eCW1 ([facility]) Smoking 11/17/2020 12:00:00 AM EDT Never Smoker completed Never S moker eCW1 ([facility]) Smoking 11/13/2020 12:00:00 AM EDT Never Smoker completed Never S moker eCW1 ([facility]) Smoking 11/13/2020 12:00:00 AM EDT Never Smoker completed Never S moker eCW1 ([facility]) Smoking 11/13/2020 12:00:00 AM EDT Never Smoker completed Never S moker eCW1 ([facility]) Smoking 11/13/2020 12:00:00 AM EDT Never Smoker completed Never S moker eCW1 ([facility]) Smoking 11/09/2020 12:00:00 AM EDT Never Smoker completed Never S moker eCW1 ([facility]) Smoking 11/09/2020 12:00:00 AM EDT Never Smoker completed Never S moker eCW1 ([facility]) Smoking 11/09/2020 12:00:00 AM EDT Never Smoker completed Never S moker eCW1 ([facility]) Smoking 11/06/2020 12:00:00 AM EDT Never Smoker completed Never S moker eCW1 ([facility]) Smoking 11/05/2020 12:00:00 AM EDT Never Smoker completed Never S moker eCW1 ([facility]) Smoking 11/04/2020 12:00:00 AM EDT Never Smoker completed Never S moker eCW1 ([facility]) Smoking 11/04/2020 12:00:00 AM EDT Never Smoker completed Never S moker eCW1 ([facility]) Smoking 11/02/2020 12:00:00 AM EDT Never Smoker completed Never S moker eCW1 ([facility]) Smoking 11/02/2020 12:00:00 AM EDT Never Smoker completed Never S moker eCW1 ([facility]) Smoking 10/30/2020 12:00:00 AM EDT Never Smoker completed Never S moker eCW1 ([facility]) Smoking 10/28/2020 12:00:00 AM EDT Never Smoker completed Never S moker eCW1 ([facility]) Smoking 10/28/2020 12:00:00 AM EDT Never Smoker completed Never S moker eCW1 ([facility]) Smoking 10/27/2020 12:00:00 AM EDT Never Smoker completed Never S moker eCW1 ([facility]) Smoking 10/21/2020 12:00:00 AM EST Never Smoker completed Never S moker eCW1 ([facility]) Smoking 10/21/2020 12:00:00 AM EST Never Smoker completed Never S moker eCW1 ([facility]) Smoking 10/14/2020 12:00:00 AM EST Never Smoker completed Never S moker eCW1 ([facility]) Smoking 10/07/2020 12:00:00 AM EST Never Smoker completed Never S moker eCW1 ([facility]) Smoking 08/31/2020 12:00:00 AM EST Never Smoker completed Never S moker eCW1 ([facility]) Smoking 08/31/2020 12:00:00 AM EST Never Smoker completed Never S moker eCW1 ([facility]) Smoking 08/31/2020 12:00:00 AM EST Never Smoker completed Never S moker eCW1 ([facility]) Smoking 08/31/2020 12:00:00 AM EST Never Smoker completed Never S moker eCW1 ([facility]) Smoking 08/19/2020 12:00:00 AM EST Never Smoker completed Never S moker eCW1 ([facility]) Smoking 08/11/2020 12:00:00 AM EST Never Smoker completed Never S moker eCW1 ([facility]) Smoking 08/11/2020 12:00:00 AM EST Never Smoker completed Never S moker eCW1 ([facility]) Smoking 08/05/2020 12:00:00 AM EST Never Smoker completed Never S moker eCW1 ([facility]) Smoking 07/28/2020 12:00:00 AM EST Never Smoker completed Never S moker eCW1 ([facility]) Smoking 07/28/2020 12:00:00 AM EST Never Smoker completed Never S moker eCW1 ([facility]) Smoking 06/22/2020 12:00:00 AM EST Never Smoker completed Never S moker eCW1 ([facility]) Smoking 06/22/2020 12:00:00 AM EST Never Smoker completed Never S moker eCW1 ([facility]) Smoking 06/03/2020 12:00:00 AM EDT Never Smoker completed Never S moker eCW1 ([facility]) Smoking 06/03/2020 12:00:00 AM EDT Never Smoker completed Never S moker eCW1 ([facility]) Smoking 05/20/2020 12:00:00 AM EDT Never Smoker completed Never S moker eCW1 ([facility]) Vital Signs ID Date Data Source UNK Name Value Range Interpretation Code Description Data Source(s) Heart rate 73 /min 73 /min eCW1 ([facility]) Body temperature 97.8 [degF] 97.8 [degF] eCW1 ( [facility]) Systolic blood pressure 118 mm[Hg] 118 mm[Hg] e CW1 ([facility]) Diastolic blood pressure 77 mm[Hg] 77 mm[Hg] eCW1 ([facility]) Body weight 243 [lb_av] 243 [lb_av] eCW1 ([facility]) Body height [in_i] [facility] Body mass index (BMI) [Ratio] 41.71 kg/m2 41.71 kg/m2 eCW1 ([facility]) Respiratory rate 19 /min 19 /min eCW1 ([facility]) Systolic blood pressure 122 mm[Hg] 122 mm[Hg] M EDENT ([facility]) Diastolic blood pressure 72 mm[Hg] 72 mm[Hg] MEDENT ([facility]) Heart rate 72 /min 72 /min MEDENT ([facility]) Body height 63.5 [in_i] 63.5 [in_i] MEDENT ([facility]) 5'3.50" Body weight 238.00 [lb_av] 238.00 [lb_av] MEDEN T ([facility]) Oxygen saturation in Arterial blood by Pulse oximetry 97 % 97 % MEDENT ([facility]) Body mass index (BMI) [Ratio] 41.5 kg/m2 41.5 k g/m2 MEDENT ([facility]) Body weight 247 [lb_av] 247 [lb_av] eCW1 ([facility]) Body height [in_i] eCW1 [facility] Body mass index (BMI) [Ratio] 42.39 kg/m2 42.39 kg/m2 eCW1 ([facility]) Heart rate 74 /min 74 /min eCW1 ([facility]) Respiratory rate 18 /min 18 /min eCW1 ([facility]) Body temperature 97 [degF] 97 [degF] eCW1 ([facility]) Systolic blood pressure 146 mm[Hg] 146 mm[Hg] e CW1 ([facility]) Diastolic blood pressure 64 mm[Hg] 64 mm[Hg] eCW1 ([facility]) Body weight 247 [lb_av] 247 [lb_av] eCW1 ([facility]) Body weight 112.04 kg 112.04 kg eCW1 [facility] Body height [in_i] eCW1 ([facility] Body mass index (BMI) [Ratio] 42.39 kg/m2 42.39 kg/m2 eCW1 ([facility]) Heart rate 73 /min 73 /min eCW1 ([facility]) Respiratory rate 16 /min 16 /min eCW1 ([facility]) Body temperature 98.1 [degF] 98.1 [degF] eCW1 ( [facility]) Systolic blood pressure 150 mm[Hg] 150 mm[Hg] e CW1 ([facility]) Diastolic blood pressure 70 mm[Hg] 70 mm[Hg] eCW1 ([facility]) Diastolic blood pressure 70 mm[Hg] 70 mm[Hg] MEDENT ([facility] ) Heart rate 72 /min 72 /min MEDENT ([facility] ) Respiratory rate 16 /min 16 /min MEDENT ( [facility] ) Systolic blood pressure 110 mm[Hg] 110 mm[Hg] M EDENT ([facility] ) Body weight 247 [lb_av] 247 [lb_av] eCW1 ([facility]) Body height [in_i] eCW1 [facility] Body mass index (BMI) [Ratio] 42.39 kg/m2 42.39 kg/m2 eCW1 ([facility]) Heart rate 65 /min 65 /min eCW1 ([facility]) Respiratory rate 17 /min 17 /min eCW1 ([facility]) Body temperature 98.4 [degF] 98.4 [degF] eCW1 ( [facility]) Systolic blood pressure 124 mm[Hg] 124 mm[Hg] e CW1 ([facility]) Diastolic blood pressure 59 mm[Hg] 59 mm[Hg] eCW1 ([facility]) Body weight 247 [lb_av] 247 [lb_av] eCW1 ([facility]) Body height [in_i] eCW1 [facility] Body mass index (BMI) [Ratio] 42.39 kg/m2 42.39 kg/m2 eCW1 ([facility]) Heart rate 73 /min 73 /min eCW1 ([facility]) Respiratory rate 16 /min 16 /min eCW1 ([facility]) Body temperature 98.3 [degF] 98.3 [degF] eCW1 ( [facility]) Systolic blood pressure 144 mm[Hg] 144 mm[Hg] e CW1 ([facility]) Diastolic blood pressure 66 mm[Hg] 66 mm[Hg] eCW1 ([facility]) Body weight 247 [lb_av] 247 [lb_av] eCW1 ([facility]) Body height [in_i] eCW1 [facility] Body mass index (BMI) [Ratio] 42.39 kg/m2 42.39 kg/m2 eCW1 ([facility]) Heart rate 69 /min 69 /min eCW1 ([facility]) Respiratory rate 16 /min 16 /min eCW1 ([facility]) Body temperature 98.4 [degF] 98.4 [degF] eCW1 ( [facility]) Systolic blood pressure 115 mm[Hg] 115 mm[Hg] e CW1 ([facility]) Diastolic blood pressure 66 mm[Hg] 66 mm[Hg] eCW1 ([facility]) Diastolic blood pressure 68 mm[Hg] 68 mm[Hg] eCW1 ([facility]) Body weight 247 [lb_av] 247 [lb_av] eCW1 ([facility]) Body height [in_i] eCW1 [facility] Body mass index (BMI) [Ratio] 42.39 kg/m2 42.39 kg/m2 eCW1 ([facility]) Heart rate 66 /min 66 /min eCW1 ([facility]) Respiratory rate 16 /min 16 /min eCW1 ([facility]) Body temperature 96.3 [degF] 96.3 [degF] eCW1 ( [facility]) Systolic blood pressure 117 mm[Hg] 117 mm[Hg] e CW1 ([facility]) Diastolic blood pressure 87 mm[Hg] 87 mm[Hg] eCW1 ([facility]) Systolic blood pressure 122 mm[Hg] 122 mm[Hg] e CW1 ([facility]) Body temperature 95.1 [degF] 95.1 [degF] eCW1 ( [facility]) Body weight 247 [lb_av] 247 [lb_av] eCW1 ([facility]) Body weight kg eCW1 ([facility] Body height [in_i] eCW1 ([facility] Body mass index (BMI) [Ratio] 42.39 kg/m2 42.39 kg/m2 eCW1 ([facility]) Heart rate 73 /min 73 /min eCW1 ([facility]) Respiratory rate 19 /min 19 /min eCW1 ([facility]) Body weight 247 [lb_av] 247 [lb_av] eCW1 ([facility]) Body weight kg eCW1 ([facility] Body height [in_i] eCW1 ([facility] Body mass index (BMI) [Ratio] 42.39 kg/m2 42.39 kg/m2 eCW1 ([facility]) Heart rate 71 /min 71 /min eCW1 ([facility]) Respiratory rate 18 /min 18 /min eCW1 ([facility]) Body temperature 94.9 [degF] 94.9 [degF] eCW1 ( [facility]) Systolic blood pressure 85 mm[Hg] 85 mm[Hg] e CW1 ([facility]) Diastolic blood pressure 43 mm[Hg] 43 mm[Hg] eCW1 ([facility]) Body weight 247 [lb_av] 247 [lb_av] eCW1 ([facility]) Body weight kg eCW1 ([facility] Body height [in_i] eCW1 ([facility]) Body mass index (BMI) [Ratio] 42.39 kg/m2 42.39 kg/m2 eCW1 ([facility]) Heart rate 76 /min 76 /min eCW1 ([facility]) Respiratory rate 18 /min 18 /min eCW1 ([facility]) Body temperature 98.3 [degF] 98.3 [degF] eCW1 ( [facility]) Systolic blood pressure 126 mm[Hg] 126 mm[Hg] e CW1 ([facility]) Diastolic blood pressure 60 mm[Hg] 60 mm[Hg] eCW1 ([facility]) Body weight 247 [lb_av] 247 [lb_av] eCW1 ([facility]) Body weight kg eCW1 ([facility] Body height [in_i] eCW1 ([facility]) Body mass index (BMI) [Ratio] 42.39 kg/m2 42.39 kg/m2 eCW1 ([facility]) Heart rate 68 /min 68 /min eCW1 ([facility]) Respiratory rate 18 /min 18 /min eCW1 ([facility]) Body temperature 98.2 [degF] 98.2 [degF] eCW1 ( [facility]) Systolic blood pressure 124 mm[Hg] 124 mm[Hg] e CW1 ([facility]) Diastolic blood pressure 59 mm[Hg] 59 mm[Hg] eCW1 ([facility]) Body weight 247 [lb_av] 247 [lb_av] eCW1 ([facility]) Body weight kg eCW1 ([facility] Body height [in_i] eCW1 ([facility]) Body mass index (BMI) [Ratio] 42.39 kg/m2 42.39 kg/m2 eCW1 ([facility]) Heart rate 69 /min 69 /min eCW1 ([facility]) Respiratory rate 18 /min 18 /min eCW1 ([facility]) Body temperature 98.1 [degF] 98.1 [degF] eCW1 ( [facility]) Systolic blood pressure 122 mm[Hg] 122 mm[Hg] e CW1 ([facility]) Diastolic blood pressure 61 mm[Hg] 61 mm[Hg] eCW1 ([facility]) Body weight 247 [lb_av] 247 [lb_av] eCW1 ([facility]) Body weight kg eCW1 ([facility] Diastolic blood pressure 55 mm[Hg] 55 mm[Hg] eCW1 ([facility]) Respiratory rate 17 /min 17 /min eCW1 ([facility]) Body temperature 98.3 [degF] 98.3 [degF] eCW1 ( [facility]) Systolic blood pressure 113 mm[Hg] 113 mm[Hg] e CW1 ([facility]) Body height [in_i] eCW1 ([facility] Body mass index (BMI) [Ratio] 42.39 kg/m2 42.39 kg/m2 eCW1 ([facility]) Heart rate 64 /min 64 /min eCW1 ([facility]) Body weight 247 [lb_av] 247 [lb_av] eCW1 ([facility]) Body height [in_i] eCW1 ([facility] Body mass index (BMI) [Ratio] 42.39 kg/m2 42.39 kg/m2 eCW1 ([facility]) Body temperature 97.8 [degF] 97.8 [degF] eCW1 ( [facility]) Body weight kg eCW1 ([facility] Body weight 247 [lb_av] 247 [lb_av] eCW1 ([facility]) Body weight kg eCW1 ([facility] Body height [in_i] eCW1 ([facility]) Body mass index (BMI) [Ratio] 42.39 kg/m2 42.39 kg/m2 eCW1 ([facility]) Heart rate 65 /min 65 /min eCW1 ([facility]) Respiratory rate 19 /min 19 /min eCW1 ([facility]) Body temperature 98.5 [degF] 98.5 [degF] eCW1 ( [facility]) Systolic blood pressure 123 mm[Hg] 123 mm[Hg] e CW1 ([facility]) Diastolic blood pressure 59 mm[Hg] 59 mm[Hg] eCW1 ([facility]) Body weight 247 [lb_av] 247 [lb_av] eCW1 ([facility]) Body weight kg eCW1 ([facility] Body height [in_i] eCW1 ([facility]) Body mass index (BMI) [Ratio] 42.39 kg/m2 42.39 kg/m2 eCW1 ([facility]) Heart rate 72 /min 72 /min eCW1 ([facility]) Respiratory rate 18 /min 18 /min eCW1 ([facility]) Body temperature 98.5 [degF] 98.5 [degF] eCW1 ( [facility]) Systolic blood pressure 136 mm[Hg] 136 mm[Hg] e CW1 ([facility]) Diastolic blood pressure 62 mm[Hg] 62 mm[Hg] eCW1 ([facility]) Body temperature 98.1 [degF] 98.1 [degF] eCW1 ( [facility]) Body weight 247 [lb_av] 247 [lb_av] eCW1 ([facility]) Body weight kg eCW1 ([facility] Body height [in_i] eCW1 ([facility]) Body mass index (BMI) [Ratio] 42.39 kg/m2 42.39 kg/m2 eCW1 ([facility]) Systolic blood pressure 126 mm[Hg] 126 mm[Hg] e CW1 ([facility]) Diastolic blood pressure 63 mm[Hg] 63 mm[Hg] eCW1 ([facility]) Heart rate 70 /min 70 /min eCW1 ([facility]) Respiratory rate 18 /min 18 /min eCW1 ([facility]) Body weight 247 [lb_av] 247 [lb_av] eCW1 ([facility]) Body weight kg eCW1 ([facility] Body height [in_i] eCW1 ([facility]) Body mass index (BMI) [Ratio] 42.39 kg/m2 42.39 kg/m2 eCW1 ([facility]) Heart rate 78 /min 78 /min eCW1 ([facility]) Respiratory rate 18 /min 18 /min eCW1 ([facility]) Body temperature 98.2 [degF] 98.2 [degF] eCW1 ( [facility]) Systolic blood pressure 124 mm[Hg] 124 mm[Hg] e CW1 ([facility]) Diastolic blood pressure 60 mm[Hg] 60 mm[Hg] eCW1 ([facility]) Body weight 247 [lb_av] 247 [lb_av] eCW1 ([facility]) Body weight kg eCW1 ([facility] Body height [in_i] eCW1 ([facility]) Body mass index (BMI) [Ratio] 42.39 kg/m2 42.39 kg/m2 eCW1 ([facility]) Heart rate 72 /min 72 /min eCW1 ([facility]) Respiratory rate 18 /min 18 /min eCW1 ([facility]) Body temperature 98.4 [degF] 98.4 [degF] eCW1 ( [facility]) Systolic blood pressure 125 mm[Hg] 125 mm[Hg] e CW1 ([facility]) Diastolic blood pressure 67 mm[Hg] 67 mm[Hg] eCW1 ([facility]) Body weight 247 [lb_av] 247 [lb_av] eCW1 ([facility]) Body weight kg eCW1 ([facility] Body height [in_i] eCW1 ([facility]) Body mass index (BMI) [Ratio] 42.39 kg/m2 42.39 kg/m2 eCW1 ([facility]) Heart rate 67 /min 67 /min eCW1 ([facility]) Respiratory rate 18 /min 18 /min eCW1 ([facility]) Body temperature 97.4 [degF] 97.4 [degF] eCW1 ( [facility]) Systolic blood pressure 136 mm[Hg] 136 mm[Hg] e CW1 ([facility]) Diastolic blood pressure 68 mm[Hg] 68 mm[Hg] eCW1 ([facility]) Body weight 247 [lb_av] 247 [lb_av] eCW1 ([facility]) Body weight kg eCW1 ([facility] Body height [in_i] eCW1 ([facility]) Body mass index (BMI) [Ratio] 42.39 kg/m2 42.39 kg/m2 W1 ([facility]) Heart rate 74 /min 74 /min eCW1 ([facility]) Respiratory rate 18 /min 18 /min eCW1 ([facility]) Body temperature 97.9 [degF] 97.9 [degF] eCW1 ( [facility]) Systolic blood pressure 108 mm[Hg] 108 mm[Hg] e CW1 ([facility]) Diastolic blood pressure 59 mm[Hg] 59 mm[Hg] eCW1 ([facility]) Body weight 247 [lb_av] 247 [lb_av] eCW1 ([facility]) Body weight kg eCW1 ([facility] Body height [in_i] eCW1 ([facility]) Body mass index (BMI) [Ratio] 42.39 kg/m2 42.39 kg/m2 eCW1 ([facility]) Heart rate 74 /min 74 /min eCW1 ([facility]) Respiratory rate 18 /min 18 /min eCW1 ([facility]) Body temperature 97.9 [degF] 97.9 [degF] eCW1 ( [facility]) Systolic blood pressure 108 mm[Hg] 108 mm[Hg] e CW1 ([facility]) Diastolic blood pressure 55 mm[Hg] 55 mm[Hg] eCW1 ([facility]) Body weight 247 [lb_av] 247 [lb_av] eCW1 ([facility]) Body weight kg eCW1 ([facility] Body height [in_i] eCW1 ([facility] Body mass index (BMI) [Ratio] 42.39 kg/m2 42.39 kg/m2 eCW1 ([facility]) Heart rate 67 /min 67 /min eCW1 ([facility]) Respiratory rate 18 /min 18 /min eCW1 ([facility]) Body temperature 97.0 [degF] 97.0 [degF] eCW1 ( [facility]) Systolic blood pressure 126 mm[Hg] 126 mm[Hg] e CW1 ([facility]) Diastolic blood pressure 68 mm[Hg] 68 mm[Hg] eCW1 ([facility]) Body weight 247 [lb_av] 247 [lb_av] eCW1 ([facility]) Body weight kg eCW1 ([facility] Body height [in_i] eCW1 ([facility]) Body mass index (BMI) [Ratio] 42.39 kg/m2 42.39 kg/m2 eCW1 ([facility]) Heart rate 70 /min 70 /min eCW1 ([facility]) Respiratory rate 18 /min 18 /min eCW1 ([facility]) Body temperature 98.1 [degF] 98.1 [degF] eCW1 ( [facility]) Systolic blood pressure 132 mm[Hg] 132 mm[Hg] e CW1 ([facility]) Diastolic blood pressure 63 mm[Hg] 63 mm[Hg] eCW1 ([facility]) Body weight 247 [lb_av] 247 [lb_av] eCW1 ([facility]) Body weight kg eCW1 [facility] Body height [in_i] eCW1 ([facility] Body mass index (BMI) [Ratio] 42.39 kg/m2 42.39 kg/m2 eCW1 ([facility]) Heart rate 68 /min 68 /min eCW1 ([facility]) Respiratory rate 18 /min 18 /min eCW1 ([facility]) Body temperature 97.8 [degF] 97.8 [degF] eCW1 ( [facility]) Systolic blood pressure 135 mm[Hg] 135 mm[Hg] e CW1 ([facility]) Diastolic blood pressure 63 mm[Hg] 63 mm[Hg] eCW1 ([facility]) Body weight 247 [lb_av] 247 [lb_av] eCW1 ([facility]) Body weight kg eCW1 ([facility] Body height [in_i] eCW1 ([facility] Body mass index (BMI) [Ratio] 42.39 kg/m2 42.39 kg/m2 eCW1 ([facility]) Heart rate 68 /min 68 /min eCW1 ([facility]) Respiratory rate 18 /min 18 /min eCW1 ([facility]) Body temperature 97.8 [degF] 97.8 [degF] eCW1 ( [facility]) Systolic blood pressure 135 mm[Hg] 135 mm[Hg] e CW1 ([facility]) Diastolic blood pressure 63 mm[Hg] 63 mm[Hg] eCW1 ([facility]) Body weight 247 [lb_av] 247 [lb_av] eCW1 ([facility]) Body weight kg eCW1 ([facility] Body height [in_i] eCW1 ([facility] Body mass index (BMI) [Ratio] 42.39 kg/m2 42.39 kg/m2 eCW1 ([facility]) Heart rate 71 /min 71 /min eCW1 ([facility]) Respiratory rate 18 /min 18 /min eCW1 ([facility]) Body temperature 98.2 [degF] 98.2 [degF] eCW1 ( [facility]) Systolic blood pressure 134 mm[Hg] 134 mm[Hg] e CW1 ([facility]) Diastolic blood pressure 62 mm[Hg] 62 mm[Hg] eCW1 ([facility]) Body height [in_i] eCW1 [facility] Body weight 247 [lb_av] 247 [lb_av] eCW1 ([facility]) Body mass index (BMI) [Ratio] 42.39 kg/m2 42.39 kg/m2 eCW1 ([facility]) Heart rate 66 /min 66 /min eCW1 ([facility]) Respiratory rate 18 /min 18 /min eCW1 ([facility]) Body temperature 97.9 [degF] 97.9 [degF] eCW1 ( [facility]) Systolic blood pressure 143 mm[Hg] 143 mm[Hg] e CW1 ([facility]) Diastolic blood pressure 64 mm[Hg] 64 mm[Hg] eCW1 ([facility]) Body weight kg eCW1 ([facility] Diastolic blood pressure 65 mm[Hg] 65 mm[Hg] eCW1 ([facility]) Body weight 247 [lb_av] 247 [lb_av] eCW1 ([facility]) Body weight kg eCW1 ([facility] Body height [in_i] eCW1 ([facility] Body mass index (BMI) [Ratio] 42.39 kg/m2 42.39 kg/m2 eCW1 ([facility]) Heart rate 72 /min 72 /min eCW1 ([facility]) Respiratory rate 18 /min 18 /min eCW1 ([facility]) Body temperature 98.4 [degF] 98.4 [degF] eCW1 ( [facility]) Systolic blood pressure 137 mm[Hg] 137 mm[Hg] e CW1 ([facility]) Body weight 247 [lb_av] 247 [lb_av] eCW1 ([facility]) Body weight kg eCW1 ([facility] Body height [in_i] eCW1 ([facility] Body mass index (BMI) [Ratio] 42.39 kg/m2 42.39 kg/m2 eCW1 ([facility]) Diastolic blood pressure 64 mm[Hg] 64 mm[Hg] eCW1 ([facility]) Respiratory rate 18 /min 18 /min eCW1 ([facility]) Body temperature 98.2 [degF] 98.2 [degF] eCW1 ( [facility]) Systolic blood pressure 138 mm[Hg] 138 mm[Hg] e CW1 ([facility]) Heart rate 78 /min 78 /min eCW1 ([facility]) Body weight 247 [lb_av] 247 [lb_av] eCW1 ([facility]) Body weight kg eCW1 [facility] Body height [in_i] eCW1 ([facility] Body mass index (BMI) [Ratio] 42.39 kg/m2 42.39 kg/m2 eCW1 ([facility]) Heart rate 77 /min 77 /min eCW1 ([facility]) Respiratory rate 18 /min 18 /min eCW1 ([facility]) Body temperature 97.6 [degF] 97.6 [degF] eCW1 ( [facility]) Systolic blood pressure 132 mm[Hg] 132 mm[Hg] e CW1 ([facility]) Diastolic blood pressure 60 mm[Hg] 60 mm[Hg] eCW1 ([facility]) Body weight 247 [lb_av] 247 [lb_av] eCW1 ([facility]) Body weight kg eCW1 [facility] Body height [in_i] eCW1 ([facility] Body mass index (BMI) [Ratio] 42.39 kg/m2 42.39 kg/m2 eCW1 ([facility]) Heart rate 77 /min 77 /min eCW1 ([facility]) Respiratory rate 18 /min 18 /min eCW1 ([facility]) Body temperature 97.6 [degF] 97.6 [degF] eCW1 ( [facility]) Systolic blood pressure 132 mm[Hg] 132 mm[Hg] e CW1 ([facility]) Diastolic blood pressure 60 mm[Hg] 60 mm[Hg] eCW1 ([facility]) Body weight 247 [lb_av] 247 [lb_av] eCW1 ([facility]) Body weight kg eCW1 [facility] Body height [in_i] eCW1 ([facility] Body mass index (BMI) [Ratio] 42.39 kg/m2 42.39 kg/m2 eCW1 ([facility]) Heart rate 76 /min 76 /min eCW1 ([facility]) Respiratory rate 18 /min 18 /min eCW1 ([facility]) Body temperature 98.1 [degF] 98.1 [degF] eCW1 ( [facility]) Systolic blood pressure 133 mm[Hg] 133 mm[Hg] e CW1 ([facility]) Diastolic blood pressure 63 mm[Hg] 63 mm[Hg] eCW1 ([facility]) Body weight 247 [lb_av] 247 [lb_av] eCW1 ([facility]) Body weight kg eCW1 [facility] Body height [in_i] eCW1 ([facility] Body mass index (BMI) [Ratio] 42.39 kg/m2 42.39 kg/m2 eCW1 ([facility]) Heart rate 74 /min 74 /min eCW1 ([facility]) Respiratory rate 18 /min 18 /min eCW1 ([facility]) Body temperature 97.8 [degF] 97.8 [degF] eCW1 ( [facility]) Systolic blood pressure 138 mm[Hg] 138 mm[Hg] e CW1 ([facility]) Diastolic blood pressure 63 mm[Hg] 63 mm[Hg] eCW1 ([facility]) Body weight 247 [lb_av] 247 [lb_av] eCW1 ([facility]) Body temperature 98.2 [degF] 98.2 [degF] eCW1 ( [facility]) Systolic blood pressure 131 mm[Hg] 131 mm[Hg] e CW1 ([facility]) Diastolic blood pressure 63 mm[Hg] 63 mm[Hg] eCW1 ([facility]) Body [facility] kg [facility]CW[facility] Body height [in_i] eCW1 [facility] Body mass index (BMI) [Ratio] 42.39 kg/m2 42.39 kg/m2 eCW1 ([facility]) Heart rate 75 /min 75 /min eCW1 ([facility]) Respiratory rate 18 /min 18 /min eCW1 ([facility]) Body weight 247 [lb_av] 247 [lb_av] eCW1 ([facility]) Body mass index (BMI) [Ratio] 42.39 kg/m2 42.39 kg/m2 eCW1 ([facility]) Heart rate 73 /min 73 /min eCW1 ([facility]) Body height [in_i] eCW1 [facility] Respiratory rate 20 /min 20 /min eCW1 ([facility]) Body temperature 97.9 [degF] 97.9 [degF] eCW1 ( [facility]) Diastolic blood pressure 74 mm[Hg] 74 mm[Hg] eCW1 ([facility]) Systolic blood pressure 133 mm[Hg] 133 mm[Hg] e CW1 ([facility]) Systolic blood pressure 102 mm[Hg] 102 mm[Hg] M EDENT ([facility]) Diastolic blood pressure 60 mm[Hg] 60 mm[Hg] MEDENT ([facility]) Heart rate 79 /min 79 /min MEDENT ([facility] [facility]) Body weight 240.00 [lb_av] 240.00 [lb_av] MEDEN T ([facility]) Body height 63.5 [in_i] 63.5 [in_i] MEDENT ([facility]) 5'3.50" Body mass index (BMI) [Ratio] 41.8 kg/m2 41.8 k g/m2 MEDENT ([facility]) Heart rate 66 /min 66 /min eCW1 ([facility]) Body weight 247 [lb_av] 247 [lb_av] eCW1 ([facility]) [facility] Body height [in_i] [facility] Body mass index (BMI) [Ratio] 42.39 kg/m2 42.39 kg/m2 eCW1 ([facility]) Respiratory rate 18 /min 18 /min eCW1 ([facility]) Body temperature 96.9 [degF] 96.9 [degF] eCW1 ( [facility]) Systolic blood pressure 133 mm[Hg] 133 mm[Hg] e CW1 ([facility]) Diastolic blood pressure 61 mm[Hg] 61 mm[Hg] eCW1 ([facility]) Body weight 247 [lb_av] 247 [lb_av] eCW1 ([facility]) Body weight kg eCW1 [facility] Body height [in_i] eCW1 [facility] Body mass index (BMI) [Ratio] 42.39 kg/m2 42.39 kg/m2 eCW1 ([facility]) Heart rate 66 /min 66 /min eCW1 ([facility]) Respiratory rate 18 /min 18 /min eCW1 ([facility]) Body temperature 96.9 [degF] 96.9 [degF] eCW1 ( [facility]) Systolic blood pressure 133 mm[Hg] 133 mm[Hg] e CW1 ([facility]) Diastolic blood pressure 61 mm[Hg] 61 mm[Hg] eCW1 ([facility]) Body weight 247 [lb_av] 247 [lb_av] eCW1 ([facility]) Body weight kg eCW1 [facility] Body height [in_i] eCW1 [facility] Body mass index (BMI) [Ratio] 42.39 kg/m2 42.39 kg/m2 eCW1 ([facility]) Heart rate 68 /min 68 /min eCW1 ([facility]) Respiratory rate 18 /min 18 /min eCW1 ([facility]) Body temperature 97.5 [degF] 97.5 [degF] eCW1 ( [facility]) Systolic blood pressure 137 mm[Hg] 137 mm[Hg] e CW1 ([facility]) Diastolic blood pressure 65 mm[Hg] 65 mm[Hg] eCW1 ([facility]) Body weight 247 [lb_av] 247 [lb_av] eCW1 ([facility]) Body weight kg eCW1 [facility] Body height [in_i] eCW1 ([facility] Body mass index (BMI) [Ratio] 42.39 kg/m2 42.39 kg/m2 eCW1 ([facility]) Heart rate 67 /min 67 /min eCW1 ([facility]) Respiratory rate 18 /min 18 /min eCW1 ([facility]) Body temperature 98.1 [degF] 98.1 [degF] eCW1 ( [facility]) Systolic blood pressure 133 mm[Hg] 133 mm[Hg] e CW1 ([facility]) Diastolic blood pressure 64 mm[Hg] 64 mm[Hg] eCW1 ([facility]) Body mass index (BMI) [Ratio] 42.39 kg/m2 42.39 kg/m2 eCW1 ([facility]) Body weight 247 [lb_av] 247 [lb_av] eCW1 ([facility]) Body height [in_i] eCW1 [facility] Heart rate 74 /min 74 /min eCW1 ([facility]) Respiratory rate 18 /min 18 /min eCW1 ([facility]) Body temperature 99 [degF] 99 [degF] eCW1 ([facility]) Systolic blood pressure 140 mm[Hg] 140 mm[Hg] e CW1 ([facility]) Diastolic blood pressure 63 mm[Hg] 63 mm[Hg] eCW1 ([facility]) Body weight 247 [lb_av] 247 [lb_av] eCW1 ([facility]) Body [facility] kg eCW1 [facility] Body height [in_i] eCW1 [facility] Body mass index (BMI) [Ratio] 42.39 kg/m2 42.39 kg/m2 eCW1 ([facility]) Heart rate 77 /min 77 /min eCW1 ([facility]) Respiratory rate 18 /min 18 /min eCW1 ([facility]) Body temperature 97.9 [degF] 97.9 [degF] eCW1 ( [facility]) Systolic blood pressure 134 mm[Hg] 134 mm[Hg] e CW1 ([facility]) Diastolic blood pressure 68 mm[Hg] 68 mm[Hg] eCW1 ([facility]) Body weight 247 [lb_av] 247 [lb_av] eCW1 ([facility]) Body weight kg eCW1 [facility] Body height [in_i] eCW1 [facility] Body mass index (BMI) [Ratio] 42.39 kg/m2 42.39 kg/m2 eCW1 ([facility]) Heart rate 72 /min 72 /min eCW1 ([facility]) Respiratory rate 18 /min 18 /min eCW1 ([facility]) Body temperature 98.1 [degF] 98.1 [degF] eCW1 ( [facility]) Systolic blood pressure 128 mm[Hg] 128 mm[Hg] e CW1 ([facility]) Diastolic blood pressure 61 mm[Hg] 61 mm[Hg] eCW1 ([facility]) Body weight kg eCW1 [facility] Body height [in_i] eCW1 [facility] Body mass index (BMI) [Ratio] 42.39 kg/m2 42.39 kg/m2 eCW1 ([facility]) Heart rate 76 /min 76 /min eCW1 ([facility]) Respiratory rate 18 /min 18 /min eCW1 ([facility]) Body temperature 98.1 [degF] 98.1 [degF] eCW1 ( [facility]) Systolic blood pressure 142 mm[Hg] 142 mm[Hg] e CW1 ([facility]) Diastolic blood pressure 65 mm[Hg] 65 mm[Hg] eCW1 ([facility]) Body weight 247 [lb_av] 247 [lb_av] eCW1 ([facility]) Body [facility] kg eCW1 [facility] Body weight 247 [lb_av] 247 [lb_av] eCW1 ([facility]) Body mass index (BMI) [Ratio] 42.39 kg/m2 42.39 kg/m2 eCW1 ([facility]) Heart rate 76 /min 76 /min eCW1 ([facility]) Respiratory rate 18 /min 18 /min eCW1 ([facility]) Body temperature 98.1 [degF] 98.1 [degF] eCW1 ( [facility]) Systolic blood pressure 142 mm[Hg] 142 mm[Hg] e CW1 ([facility]) Body height [in_i] eCW1 [facility] Diastolic blood pressure 65 mm[Hg] 65 mm[Hg] eCW1 ([facility]) Body weight 247 [lb_av] 247 [lb_av] eCW1 ([facility]) Body height [in_i] eCW1 [facility] Body mass index (BMI) [Ratio] 42.39 kg/m2 42.39 kg/m2 eCW1 ([facility]) Heart rate 70 /min 70 /min eCW1 ([facility]) Respiratory rate 16 /min 16 /min eCW1 ([facility]) Body temperature 98.8 [degF] 98.8 [degF] eCW1 ( [facility]) Systolic blood pressure 138 mm[Hg] 138 mm[Hg] e CW1 ([facility]) Diastolic blood pressure 63 mm[Hg] 63 mm[Hg] eCW1 ([facility]) Body weight 247 [lb_av] 247 [lb_av] eCW1 ([facility]) Body weight kg eCW1 [facility] Body height [in_i] eCW1 ([facility] Body mass index (BMI) [Ratio] 42.39 kg/m2 42.39 kg/m2 eCW1 ([facility]) Heart rate 70 /min 70 /min eCW1 ([facility]) Respiratory rate 18 /min 18 /min eCW1 ([facility]) Body temperature 97.4 [degF] 97.4 [degF] eCW1 ( [facility]) Systolic blood pressure 133 mm[Hg] 133 mm[Hg] e CW1 ([facility]) Diastolic blood pressure 75 mm[Hg] 75 mm[Hg] eCW1 ([facility]) Body weight 247 [lb_av] 247 [lb_av] eCW1 ([facility]) Body weight kg eCW1 [facility] Body height [in_i] eCW1 ([facility] Body mass index (BMI) [Ratio] 42.39 kg/m2 42.39 kg/m2 eCW1 ([facility]) Heart rate 72 /min 72 /min eCW1 ([facility]) Respiratory rate 18 /min 18 /min eCW1 ([facility]) Body temperature 98.2 [degF] 98.2 [degF] eCW1 ( [facility]) Systolic blood pressure 135 mm[Hg] 135 mm[Hg] e CW1 ([facility]) Diastolic blood pressure 73 mm[Hg] 73 mm[Hg] eCW1 ([facility]) Body temperature 98.3 [degF] 98.3 [degF] eCW1 ( [facility]) Body weight 247 [lb_av] 247 [lb_av] eCW1 ([facility]) Body [facility] kg eCW1 [facility] Body height [in_i] eCW1 ([facility] Body mass index (BMI) [Ratio] 42.39 kg/m2 42.39 kg/m2 eCW1 ([facility]) Heart rate 78 /min 78 /min eCW1 ([facility]) Respiratory rate 17 /min 17 /min eCW1 ([facility]) Systolic blood pressure 127 mm[Hg] 127 mm[Hg] e CW1 ([facility]) Diastolic blood pressure 60 mm[Hg] 60 mm[Hg] eCW1 ([facility]) Body weight 247 [lb_av] 247 [lb_av] eCW1 ([facility]) Body [facility] kg eCW1 [facility] Body height [in_i] eCW1 [facility] Body mass index (BMI) [Ratio] 42.39 kg/m2 42.39 kg/m2 eCW1 ([facility]) Heart rate 78 /min 78 /min eCW1 ([facility]) Respiratory rate 17 /min 17 /min eCW1 ([facility]) Body temperature 98.3 [degF] 98.3 [degF] eCW1 ( [facility]) Systolic blood pressure 127 mm[Hg] 127 mm[Hg] e CW1 ([facility]) Diastolic blood pressure 60 mm[Hg] 60 mm[Hg] eCW1 ([facility]) Body mass index (BMI) [Ratio] 42.39 kg/m2 42.39 kg/m2 eCW1 ([facility]) Body weight 247 [lb_av] 247 [lb_av] eCW1 ([facility]) Heart rate 69 /min 69 /min eCW1 ([facility]) Body weight kg eCW1 [facility] Body height [in_i] eCW1 ([facility] Respiratory rate 18 /min 18 /min eCW1 ([facility]) Body temperature 98.7 [degF] 98.7 [degF] eCW1 ( [facility]) Systolic blood pressure 115 mm[Hg] 115 mm[Hg] e CW1 ([facility]) Diastolic blood pressure 55 mm[Hg] 55 mm[Hg] eCW1 ([facility]) Body weight 247 [lb_av] 247 [lb_av] eCW1 ([facility]) Body weight kg eCW1 [facility] Body height [in_i] eCW1 ([facility] Body mass index (BMI) [Ratio] 42.39 kg/m2 42.39 kg/m2 eCW1 ([facility]) Heart rate 66 /min 66 /min eCW1 ([facility]) Respiratory rate 18 /min 18 /min eCW1 ([facility]) Body temperature 98.1 [degF] 98.1 [degF] eCW1 ( [facility]) Systolic blood pressure 144 mm[Hg] 144 mm[Hg] e CW1 ([facility]) Diastolic blood pressure 67 mm[Hg] 67 mm[Hg] eCW1 ([facility]) Body weight 247 [lb_av] 247 [lb_av] eCW1 ([facility]) Body weight kg eCW1 [facility] Body height [in_i] eCW1 [facility] Body mass index (BMI) [Ratio] 42.39 kg/m2 42.39 kg/m2 eCW1 ([facility]) Heart rate 69 /min 69 /min eCW1 ([facility]) Respiratory rate 16 /min 16 /min eCW1 ([facility]) Body temperature 96.9 [degF] 96.9 [degF] eCW1 ( [facility]) Systolic blood pressure 138 mm[Hg] 138 mm[Hg] e CW1 ([facility]) Diastolic blood pressure 65 mm[Hg] 65 mm[Hg] eCW1 ([facility]) Body weight 247 [lb_av] 247 [lb_av] eCW1 ([facility]) Body weight kg eCW1 [facility] Body height [in_i] eCW1 ([facility] Body mass index (BMI) [Ratio] 42.39 kg/m2 42.39 kg/m2 eCW1 ([facility]) Heart rate 64 /min 64 /min eCW1 ([facility]) Respiratory rate 18 /min 18 /min eCW1 ([facility]) Body temperature 98.1 [degF] 98.1 [degF] eCW1 ( [facility]) Systolic blood pressure 123 mm[Hg] 123 mm[Hg] e CW1 ([facility]) Diastolic blood pressure 62 mm[Hg] 62 mm[Hg] eCW1 ([facility]) Body weight 247 [lb_av] 247 [lb_av] eCW1 ([facility]) Body weight kg eCW1 [facility] Body height [in_i] eCW1 ([facility] Body mass index (BMI) [Ratio] 42.39 kg/m2 42.39 kg/m2 eCW1 ([facility]) Heart rate 71 /min 71 /min eCW1 ([facility]) Respiratory rate 20 /min 20 /min eCW1 ([facility]) Body temperature 98.3 [degF] 98.3 [degF] eCW1 ( [facility]) Systolic blood pressure 118 mm[Hg] 118 mm[Hg] e CW1 ([facility]) Diastolic blood pressure 53 mm[Hg] 53 mm[Hg] eCW1 ([facility]) Body weight 247 [lb_av] 247 [lb_av] eCW1 ([facility]) Body weight kg eCW1 [facility] Body height [in_i] eCW1 ([facility] Body mass index (BMI) [Ratio] 42.39 kg/m2 42.39 kg/m2 eCW1 ([facility]) Heart rate 71 /min 71 /min eCW1 ([facility]) Respiratory rate 20 /min 20 /min eCW1 ([facility]) Body temperature 98.3 [degF] 98.3 [degF] eCW1 ( [facility]) Systolic blood pressure 118 mm[Hg] 118 mm[Hg] e CW1 ([facility]) Diastolic blood pressure 53 mm[Hg] 53 mm[Hg] eCW1 ([facility]) Body weight 247 [lb_av] 247 [lb_av] eCW1 ([facility]) Body weight kg eCW1 [facility] Body height [in_i] eCW1 ([facility] Body mass index (BMI) [Ratio] 42.39 kg/m2 42.39 kg/m2 eCW1 ([facility]) Heart rate 68 /min 68 /min eCW1 ([facility]) Respiratory rate 18 /min 18 /min eCW1 ([facility]) Body temperature 97 [degF] 97 [degF] eCW1 ([facility]) Systolic blood pressure 112 mm[Hg] 112 mm[Hg] e CW1 ([facility]) Diastolic blood pressure 57 mm[Hg] 57 mm[Hg] eCW1 ([facility]) Body weight 247 [lb_av] 247 [lb_av] eCW1 ([facility]) Body weight kg eCW1 [facility] Body height [in_i] eCW1 ([facility] Body mass index (BMI) [Ratio] 42.39 kg/m2 42.39 kg/m2 eCW1 ([facility]) Heart rate 69 /min 69 /min eCW1 ([facility]) Respiratory rate 18 /min 18 /min eCW1 ([facility]) Body temperature 97.9 [degF] 97.9 [degF] eCW1 ( [facility]) Systolic blood pressure 113 mm[Hg] 113 mm[Hg] e CW1 ([facility]) Diastolic blood pressure 56 mm[Hg] 56 mm[Hg] eCW1 ([facility]) Body weight 247 [lb_av] 247 [lb_av] eCW1 ([facility]) Body weight kg eCW1 [facility] Body height [in_i] eCW1 [facility] Body mass index (BMI) [Ratio] 42.39 kg/m2 42.39 kg/m2 eCW1 ([facility]) Heart rate 78 /min 78 /min eCW1 ([facility]) Respiratory rate 18 /min 18 /min eCW1 ([facility]) Body temperature 98.7 [degF] 98.7 [degF] eCW1 ( [facility]) Systolic blood pressure 135 mm[Hg] 135 mm[Hg] e CW1 ([facility]) Diastolic blood pressure 61 mm[Hg] 61 mm[Hg] eCW1 ([facility]) Body mass index (BMI) [Ratio] 42.39 kg/m2 42.39 kg/m2 eCW1 ([facility]) Body weight 247 [lb_av] 247 [lb_av] eCW1 ([facility]) Body weight kg eCW1 [facility] Heart rate 71 /min 71 /min eCW1 ([facility]) Respiratory rate 16 /min 16 /min eCW1 ([facility]) Body temperature 98.3 [degF] 98.3 [degF] eCW1 ( [facility]) Systolic blood pressure 113 mm[Hg] 113 mm[Hg] e CW1 ([facility]) Diastolic blood pressure 53 mm[Hg] 53 mm[Hg] eCW1 ([facility]) Body height [in_i] eCW1 [facility] Body weight 247 [lb_av] 247 [lb_av] eCW1 ([facility]) Body weight kg eCW1 [facility] Body height [in_i] eCW1 ([facility] Body mass index (BMI) [Ratio] 42.39 kg/m2 42.39 kg/m2 eCW1 ([facility]) Heart rate 76 /min 76 /min eCW1 ([facility]) Respiratory rate 18 /min 18 /min eCW1 ([facility]) Body temperature 98.1 [degF] 98.1 [degF] eCW1 ( [facility]) Systolic blood pressure 132 mm[Hg] 132 mm[Hg] e CW1 ([facility]) Diastolic blood pressure 64 mm[Hg] 64 mm[Hg] eCW1 ([facility]) Body weight 247 [lb_av] 247 [lb_av] eCW1 ([facility]) Body weight kg eCW1 [facility] Body height [in_i] eCW1 ([facility] Body mass index (BMI) [Ratio] 42.39 kg/m2 42.39 kg/m2 eCW1 ([facility]) Heart rate 76 /min 76 /min eCW1 ([facility]) Respiratory rate 18 /min 18 /min eCW1 ([facility]) Body temperature 98.1 [degF] 98.1 [degF] eCW1 ( [facility]) Systolic blood pressure 132 mm[Hg] 132 mm[Hg] e CW1 ([facility]) Diastolic blood pressure 64 mm[Hg] 64 mm[Hg] eCW1 ([facility]) Body weight 247 [lb_av] 247 [lb_av] eCW1 ([facility]) Body weight kg eCW1 [facility] Body height [in_i] eCW1 [facility] Body mass index (BMI) [Ratio] 42.39 kg/m2 42.39 kg/m2 eCW1 ([facility]) Heart rate 74 /min 74 /min eCW1 ([facility]) Respiratory rate 18 /min 18 /min eCW1 ([facility]) Body temperature 97.8 [degF] 97.8 [degF] eCW1 ( [facility]) Systolic blood pressure 138 mm[Hg] 138 mm[Hg] e CW1 ([facility]) Diastolic blood pressure 65 mm[Hg] 65 mm[Hg] eCW1 ([facility]) Body weight 247 [lb_av] 247 [lb_av] eCW1 ([facility]) Body weight kg eCW1 [facility] Body height [in_i] eCW1 ([facility] Body mass index (BMI) [Ratio] 42.39 kg/m2 42.39 kg/m2 eCW1 ([facility]) Heart rate 71 /min 71 /min eCW1 ([facility]) Respiratory rate 18 /min 18 /min eCW1 ([facility]) Body temperature 98.2 [degF] 98.2 [degF] eCW1 ( [facility]) Systolic blood pressure 140 mm[Hg] 140 mm[Hg] e CW1 ([facility]) Diastolic blood pressure 63 mm[Hg] 63 mm[Hg] eCW1 ([facility]) Body weight 247 [lb_av] 247 [lb_av] eCW1 ([facility]) Body [facility] kg eCW1 [facility] Body height [in_i] eCW1 [facility] Body mass index (BMI) [Ratio] 42.39 kg/m2 42.39 kg/m2 eCW1 ([facility]) Heart rate 71 /min 71 /min eCW1 ([facility]) Respiratory rate 18 /min 18 /min eCW1 ([facility]) Body temperature 98.2 [degF] 98.2 [degF] eCW1 ( [facility]) Systolic blood pressure 140 mm[Hg] 140 mm[Hg] e CW1 ([facility]) Diastolic blood pressure 63 mm[Hg] 63 mm[Hg] eCW1 ([facility]) Body weight 247 [lb_av] 247 [lb_av] eCW1 ([facility]) Body height [in_i] eCW1 [facility] Body mass index (BMI) [Ratio] 42.39 kg/m2 42.39 kg/m2 eCW1 ([facility]) Heart rate 74 /min 74 /min eCW1 ([facility]) Respiratory rate 18 /min 18 /min eCW1 ([facility]) Body temperature 97.9 [degF] 97.9 [degF] eCW1 ( [facility]) Systolic blood pressure 142 mm[Hg] 142 mm[Hg] e CW1 ([facility]) Diastolic blood pressure 66 mm[Hg] 66 mm[Hg] eCW1 ([facility]) Body weight 247 [lb_av] 247 [lb_av] eCW1 ([facility]) Body [facility] kg eCW1 [facility] Body height [in_i] eCW1 [facility] Body mass index (BMI) [Ratio] 42.39 kg/m2 42.39 kg/m2 eCW1 ([facility]) Heart rate 84 /min 84 /min eCW1 ([facility]) Respiratory rate 19 /min 19 /min eCW1 ([facility]) Body temperature 97 [degF] 97 [degF] eCW1 ([facility]) Systolic blood pressure 133 mm[Hg] 133 mm[Hg] e CW1 ([facility]) Diastolic blood pressure 63 mm[Hg] 63 mm[Hg] eCW1 ([facility]) Systolic blood pressure 106 mm[Hg] 106 mm[Hg] M EDENT ([facility]) Oxygen saturation in Arterial blood by Pulse oximetry 96 % 96 % MEDENT ([facility]) RM Air Diastolic blood pressure 60 mm[Hg] 60 mm[Hg] MEDENT ([facility]) Heart rate 74 /min 74 /min MEDENT ([facility]) Body weight 247 [lb_av] 247 [lb_av] eCW1 ([facility]) Body [facility] kg eCW[facility] Body height [in_i] eCW1 [facility] Body mass index (BMI) [Ratio] 42.39 kg/m2 42.39 kg/m2 W1 ([facility]) Heart rate 68 /min 68 /min eCW1 ([facility]) Respiratory rate 18 /min 18 /min eCW1 ([facility]) Body temperature 97.3 [degF] 97.3 [degF] eCW1 ( [facility]) Systolic blood pressure 130 mm[Hg] 130 mm[Hg] e CW1 ([facility]) Diastolic blood pressure 60 mm[Hg] 60 mm[Hg] eCW1 ([facility]) Diastolic blood pressure 62 mm[Hg] 62 mm[Hg] MEDSARAH ([facility] Systolic blood pressure 132 mm[Hg] 132 mm[Hg] M EDENT ([facility] Body mass index (BMI) [Ratio] 42.0 kg/m2 42.0 k g/m2 MEDENT ([facility] Body height 64 [in_i] 64 [in_i] MEDENT ([facility] 5'4" Body weight 245.00 [lb_av] 245.00 [lb_av] MEDEN T ([facility] Heart rate 87 /min 87 /min MEDENT ([facility] Body mass index (BMI) [Ratio] 42.39 kg/m2 42.39 kg/m2 eCW1 ([facility]) Heart rate 90 /min 90 /min eCW1 ([facility]) Respiratory rate 20 /min 20 /min eCW1 ([facility]) Body temperature 97.2 [degF] 97.2 [degF] eCW1 ( [facility]) Systolic blood pressure 122 mm[Hg] 122 mm[Hg] e CW1 ([facility]) Diastolic blood pressure 58 mm[Hg] 58 mm[Hg] eCW1 ([facility]) Body weight 247 [lb_av] 247 [lb_av] eCW1 ([facility]) Body [facility] kg [facility]CW[facility] Body height [in_i] eCW1 [facility] Body weight 227.00 [lb_av] 227.00 [lb_av] MEDEN T ([facility] Body height 64 [in_i] 64 [in_i] MEDENT ([facility] 5'4" Systolic blood pressure 118 mm[Hg] 118 mm[Hg] M EDENT ([facility] Diastolic blood pressure 78 mm[Hg] 78 mm[Hg] MEDENT ([facility] Heart rate 72 /min 72 /min MEDENT ([facility] Body mass index (BMI) [Ratio] 39.0 kg/m2 39.0 k g/m2 MEDENT ([facility] Body temperature 97.2 [degF] 97.2 [degF] eCW1 ( [facility]) Body weight 227 [lb_av] 227 [lb_av] eCW1 ([facility]) Body [facility] kg [facility] Body height [in_i] eCW1 [facility] Body mass index (BMI) [Ratio] 38.96 kg/m2 38.96 kg/m2 eCW1 ([facility]) Heart rate 72 /min 72 /min eCW1 ([facility]) Respiratory rate 18 /min 18 /min eCW1 ([facility]) Systolic blood pressure 177 mm[Hg] 177 mm[Hg] e CW1 ([facility]) Diastolic blood pressure 79 mm[Hg] 79 mm[Hg] eCW1 ([facility]) Systolic blood pressure 137 mm[Hg] 137 mm[Hg] M EDENT ([facility], ) Diastolic blood pressure 73 mm[Hg] 73 mm[Hg] MEDENT ([facility], ) Body height 64 [in_i] 64 [in_i] MEDENT ([facility], ) 5'4" Body weight 245.00 [lb_av] 245.00 [lb_av] MEDEN T ([facility]) Body mass index (BMI) [Ratio] 42.0 kg/m2 42.0 k g/m2 [facility] Belva body weight 120 [lb_av] 120 [lb_av] MEDEN T ([facility]) Body weight 111.132 kg 111.132 kg [facility] Body surface area Derived from formula 2.13 m2 2.13 m2 [facility] ([facility] [facility] Respiratory rate 18 /min 18 /min eCW1 ([facility]) Body temperature 97.3 [degF] 97.3 [degF] eCW1 ( [facility]) Systolic blood pressure 117 mm[Hg] 117 mm[Hg] e CW1 ([facility]) Body weight 227 [lb_av] 227 [lb_av] eCW1 ([facility]) Diastolic blood pressure 56 mm[Hg] 56 mm[Hg] eCW1 ([facility]) [facility] Body height [in_i] [facility] Body mass index (BMI) [Ratio] 38.96 kg/m2 38.96 kg/m2 eCW1 ([facility]) Heart rate 90 /min 90 /min eCW1 ([facility]) Body weight 242.00 [lb_av] 242.00 [lb_av] MEDEN T ([facility]) Body weight kg eCW1 [facility] Body weight 227 [lb_av] 227 [lb_av] eCW1 ([facility]) Body height [in_i] eCW1 [facility] Body mass index (BMI) [Ratio] 38.96 kg/m2 38.96 kg/m2 eCW1 ([facility]) Heart rate 75 /min 75 /min eCW1 ([facility]) Respiratory rate 17 /min 17 /min eCW1 ([facility]) Body temperature 97.7 [degF] 97.7 [degF] eCW1 ( [facility]) Systolic blood pressure 104 mm[Hg] 104 mm[Hg] e CW1 ([facility]) Diastolic blood pressure 51 mm[Hg] 51 mm[Hg] eCW1 ([facility]) Body temperature 97.5 [degF] 97.5 [degF] eCW1 ( [facility]) Body weight 227 [lb_av] 227 [lb_av] eCW1 ([facility]) Body weight kg eCW1 [facility] Body height [in_i] eCW1 [facility] Body mass index (BMI) [Ratio] 38.96 kg/m2 38.96 kg/m2 eCW1 ([facility]) Heart rate 77 /min 77 /min eCW1 ([facility]) Respiratory rate 18 /min 18 /min eCW1 ([facility]) Diastolic blood pressure 63 mm[Hg] 63 mm[Hg] eCW1 ([facility]) Systolic blood pressure 131 mm[Hg] 131 mm[Hg] e CW1 ([facility]) Body mass index (BMI) [Ratio] 38.96 kg/m2 38.96 kg/m2 eCW1 ([facility]) Body weight 227 [lb_av] 227 [lb_av] eCW1 ([facility]) Body weight kg eCW1 [facility] Body height [in_i] eCW1 [facility] Heart rate 73 /min 73 /min eCW1 ([facility]) Respiratory rate 19 /min 19 /min eCW1 ([facility]) Body temperature 96.5 [degF] 96.5 [degF] eCW1 ( [facility]) Systolic blood pressure 122 mm[Hg] 122 mm[Hg] e CW1 ([facility]) Diastolic blood pressure 56 mm[Hg] 56 mm[Hg] eCW1 ([facility]) Body weight 243.00 [lb_av] 243.00 [lb_av] MEDEN T ([facility]) Body weight 227 [lb_av] 227 [lb_av] eCW1 ([facility]) Body weight kg eCW1 [facility] Body mass index (BMI) [Ratio] 38.96 kg/m2 38.96 kg/m2 eCW1 ([facility]) Body height [in_i] eCW1 [facility] Heart rate 90 /min 90 /min eCW1 ([facility]) Respiratory rate 22 /min 22 /min eCW1 ([facility]) Body temperature 98.8 [degF] 98.8 [degF] eCW1 ( [facility]) Systolic blood pressure 136 mm[Hg] 136 mm[Hg] e CW1 ([facility]) Diastolic blood pressure 62 mm[Hg] 62 mm[Hg] eCW1 ([facility]) Body mass index (BMI) [Ratio] 42.4 kg/m2 42.4 k g/m2 MEDENT ([facility]) Systolic blood pressure 114 mm[Hg] 114 mm[Hg] M EDENT ([facility]) Diastolic blood pressure 60 mm[Hg] 60 mm[Hg] MEDENT ([facility]) Heart rate 73 /min 73 /min MEDENT ([facility]) Body height 63.5 [in_i] 63.5 [in_i] MEDENT ([facility]) 5'3.50" Body weight 243.00 [lb_av] 243.00 [lb_av] MEDEN T ([facility]) Body weight 257.00 [lb_av] 257.00 [lb_av] MEDEN T ([facility]) Respiratory rate 16 /min 16 /min eCW1 ([facility]) Body temperature 97.2 [degF] 97.2 [degF] eCW1 ( [facility]) Systolic blood pressure 125 mm[Hg] 125 mm[Hg] e CW1 ([facility]) Diastolic blood pressure 65 mm[Hg] 65 mm[Hg] eCW1 ([facility]) Body weight 241 [lb_av] 241 [lb_av] eCW1 ([facility]) Body [facility] kg eCW[facility] Body height [in_i] eCW1 [facility] Body mass index (BMI) [Ratio] 41.36 kg/m2 41.36 kg/m2 eCW1 ([facility]) Heart rate 81 /min 81 /min eCW1 ([facility]) Heart rate 79 /min 79 /min eCW1 ([facility]) Respiratory rate 22 /min 22 /min eCW1 ([facility]) Body temperature 97.8 [degF] 97.8 [degF] eCW1 ( [facility]) Systolic blood pressure 123 mm[Hg] 123 mm[Hg] e CW1 ([facility]) Diastolic blood pressure 58 mm[Hg] 58 mm[Hg] eCW1 ([facility]) Body weight 241 [lb_av] 241 [lb_av] eCW1 ([facility]) Body [facility] kg eCW[facility] Body height [in_i] eCW1 [facility] Body mass index (BMI) [Ratio] 41.36 kg/m2 41.36 kg/m2 W1 ([facility]) Body weight 257.00 [lb_av] 257.00 [lb_av] MEDEN T ([facility]) Body weight 257.00 [lb_av] 257.00 [lb_av] MEDEN T ([facility]) Heart rate 80 /min 80 /min MEDENT ([facility] ) Systolic blood pressure 110 mm[Hg] 110 mm[Hg] M EDENT ([facility] ) Diastolic blood pressure 70 mm[Hg] 70 mm[Hg] MEDENT ([facility] ) Respiratory rate 20 /min 20 /min MEDENT ( [facility] ) Systolic blood pressure 120 mm[Hg] 120 mm[Hg] M EDENT ([facility]) Body weight 257.25 [lb_av] 257.25 [lb_av] MEDEN T ([facility]) Body mass index (BMI) [Ratio] 44.9 kg/m2 44.9 k g/m2 MEDENT ([facility]) Body height 63.5 [in_i] 63.5 [in_i] MEDENT ([facility]) 5'3.50" Diastolic blood pressure 70 mm[Hg] 70 mm[Hg] MEDENT ([facility]) Systolic blood pressure 110 mm[Hg] 110 mm[Hg] M EDENT ([facility] ) Diastolic blood pressure 70 mm[Hg] 70 mm[Hg] MEDENT ([facility] ) Heart rate 64 /min 64 /min MEDENT ([facility] ) Respiratory rate 16 /min 16 /min MEDENT ( [facility] ) Patient Treatment Plan of Care Planned Activity Planned Date Details Description Data Source (s) Clindamycin 150 MG Oral Capsule 08/11/2020 12:00:00 AM EST eCW1 ([facility]) Clindamycin 150 MG Oral Capsule 08/11/2020 12:00:00 AM EST eCW1 ([facility])
[2021-06-02] MEDS ORDERED: ISOVUE-370 76% 100ML VIAL As Ordered ONE (17:13)
[2021-06-02 17:25] LABS: INR 2.02; PARTIAL THROMBOPLASTIN TIME 38.9 SECONDS (25.9-37.0); PROTHROMBIN TIME 23.2 SECONDS (12.7-14.5)
[2021-06-02] MEDS: VANCOMYCIN HCL 1,000 MG, VIAL MATE ADAPTER 1 EACH in NS 250 ML IV ONE ×2 (18:00→22:21)
[2021-06-02] MEDS ORDERED: VANCOMYCIN HCL 750 MG, VIAL MATE ADAPTER 1 EACH in NS 250 ML IV SCH (18:20)
[2021-06-02] MEDS ORDERED: GLUCAGON INJ 1MG VIAL SC PRN (18:20)
[2021-06-02] MEDS ORDERED: GLUCOSE 4GM CHEW TABLET PO PRN (18:20)
[2021-06-02] MEDS ORDERED: DEXTROSE 50% 50 ML SYRINGE IV PRN (18:20)
[2021-06-02] MEDS ORDERED: ONDANSETRON 4 MG TAB PO PRN (18:45)
--- OUTSIDE RECORDS SUMMARY | 2021-06-02 18:47 | CCD ---
Author Author [facility] Address Unknown Phone Unavailable Care Team Providers Care Review Appraiser Name Role Phone Stephanie Murphy DO Unavailable [...] Unavailable Jeffrey, Stephanie DO Unavailable Unavailable Jeffrey, Stepahnie DO Unavailable Unavailable Jeffrey, Stephanie DO Unavailable [...] Unavailable Jeffrey, Stephanie DO Unavailable Unavailable Jeffrey, Stephaine DO Unavailable Unavailable Jeffrey, Stephanie DO Unavailable [...] is protected by Article 27-F of the [facility] Public Health law. If you continue you may have access to information: Regarding HIV / AIDS; Provided by facilities licensed or operated by the [facility] Office of Mental Health; or Provided by the [facility] Office for People With Developmental Disabilities. If such information is present, then the following [facility] mandated warning applies: This information has been [...] Location Date Indications Data Source(s ) Outpatient [address] [place] [phone] 05/26/2021 12:00:00 AM EDT eCW1 ([facility]) Outpatient Attender: Stephanie Nelson 05/19 11:00:00 AM EDT MEDENT ([facility] ) Outpatient [address] [place] [phone] 05/12/2021 12:00:00 AM EDT eCW1 ([facility]) Outpatient [address] [place] [phone] 04/28/2021 12:00:00 AM EDT eCW1 ([facility]) Outpatient Attender: Roseline SHERMAN [facility] 04/27/2021 02:00:00 PM EDT MEDENT ([facility] ) ([id number]) For Template Gunn [address] [place] [phone] 04/07/2021 12:00:00 AM EDT eCW1 ([facility]) ([id number]) For Template Gunn [address] [place] [phone] 04/02/2021 12:00:00 AM EDT eCW1 ([facility]) [place] [address] [facility] [address] 03/26/2021 12:00:00 AM EDT eCW1 ([facility]) [place]patient [address] [facility] [address] 03/24/2021 12:00:00 AM EDT [facility]) ([id number]) For Template Gunn [address] [place] [address] 03/17/2021 12:00:00 AM EDT eCW1 ([facility]) ([id number]) For Template Gunn [address] [place] [address] 03/04/2021 12:00:00 AM EDT eCW1 ([facility]) Outpatient [address] [facility] [address] 02/24/2021 12:00:00 AM EDT eCW1 ([facility]) [place]patient [address] [facility] [address] 02/17/2021 12:00:00 AM EDT [facility] [place]patient [address] [facility] [address] 02/11/2021 12:00:00 AM EDT eCW1 ([facility]) ([id number]) For Template Gunn [facility] [place] [address] 02/03/2021 12:00:00 AM EDT eCW1 ([facility]) Unknown [address] [facility] [place] [address] 02/03/2021 12:00:00 AM EDT [facility]1 [facility] Outpatient [address] [facility] Y [address] 01/28/2021 12:00:00 AM EDT [facility]CW1 ([facility]) Outpatient [address] [facility] [place] [address] 01/21/2021 12:00:00 AM EDT eCW1 [facility]) ([id number]) For Template Gunn [address] [place] [address] 01/07/2021 12:00:00 AM EDT eCW1 ([facility]) Outpatient [address] [facility] [address] 12/31/2020 12:00:00 AM EDT eCW1 ([facility]) ([id number]) For Template Gunn [address] [place] [address] 12/24/2020 12:00:00 AM EDT eCW1 ([facility]) Outpatient [address] [facility] [address] 2020 12:00:00 AM EDT eCW1 [facility]) Outpatient [address] [facility] [address] 12/21/2020 12:00:00 AM EDT eCW1 [facility]) Outpatient [address] [facility] [address] 12/18/2020 12:00:00 AM EDT eCW1 ([facility]) Outpatient [address] [facility] [address] 12/17/2020 12:00:00 AM EDT eCW1 ([facility]) ([id number]) For Template Gunn [address] [place] [address] 12/17/2020 12:00:00 AM EDT eCW1 ([facility]) Outpatient [address] [facility] [place] [address] 12/15/2020 12:00:00 AM EDT eCW1 ([facility]) Outpatient [address] [facility] [address] 12/11/2020 12:00:00 AM EDT eCW1 ([facility]) ([id number]) For Template Gunn [address] [place] [address] 12/10/2020 12:00:00 AM EDT eCW1 ([facility]) Outpatient [address] [facility] [address] 12/10/2020 12:00:00 AM EDT eCW1 ([facility]) Outpatient [address] [facility] [address] 12/09/2020 12:00:00 AM EDT eCW1 ([facility]) Outpatient [address] [facility] [address] 12/08/2020 12:00:00 AM EDT eCW1 ([facility]) Office Visit Attender: YANDY MONTELONGO [facility] Office 11/13 01:00:00 PM EDT MEDENT ([facility] Outpatient [address] [facility] [address] 12/07/2020 12:00:00 AM EDT eCW1 ([facility]) Outpatient [address] [facility] [address] 12/04/2020 12:00:00 AM EDT eCW1 ([facility]) Outpatient [address] [facility] [address] 12/03/2020 12:00:00 AM EDT eCW1 ([facility]) ([id number]) For Template Gunn [address] [place] [address] 12/03/2020 12:00:00 AM EDT eCW1 ([facility]) Outpatient [address] [facility] [address] 12/02/2020 12:00:00 AM EDT eCW1 ([facility]) Outpatient [address] [facility] [address] 12/01/2020 12:00:00 AM EDT eCW1 ([facility]) [place] [address] [facility] [address] 11/30/2020 12:00:00 AM EDT eCW1 ([facility]) Outpatient [address] [facility] [address] 11/27/2020 12:00:00 AM EDT eCW1 ([facility]) Outpatient Attender: Stephanie Nelson 11/26 02:00:00 PM EDT MEDENT ([facility] ) ([id number]) For Template Gunn [address] [place] [address] 11/26/2020 12:00:00 AM EDT eCW1 ([facility]) [place]patient [address] [facility] [address] 11/26/2020 12:00:00 AM EDT eCW1 ([facility]) [place]patient [address] [facility] [address] 11/25/2020 12:00:00 AM EDT eCW1 ([facility]) Outpatient [address] [facility] [address] 11/24/2020 12:00:00 AM EDT eCW1 ([facility]) Unknown [address] [place] [address], [place] [address] 11/24/2020 12:00:00 AM EDT eCW1 ([facility]) Outpatient [address] [facility] [address] 11/23/2020 12:00:00 AM EDT eCW1 ([facility]) Outpatient [address] [place] [address] [place] [address] 11/20/2020 12:00:00 AM EDT eCW1 ([facility]) Outpatient [address] [place] [address] [place] [address] 11/19/2020 12:00:00 AM EDT eCW1 ([facility]) ([id number]) For Template Gunn [address] [place] [address], [place] [address] 11/18/2020 12:00:00 AM EDT eCW1 ([facility]) Outpatient [address] [facility] [address] 11/18/2020 12:00:00 AM EDT eCW1 ([facility]) Outpatient [address] [facility] [address] 11/17/2020 12:00:00 AM EDT eCW1 ([facility]) Outpatient [address] [facility] [address] 11/16/2020 12:00:00 AM EDT eCW1 ([facility]) Outpatient [address] [facility] [address] 11/13/2020 12:00:00 AM EDT eCW1 ([facility]) ([id number]) For Template Gunn [address] [place] [address] 11/12/2020 12:00:00 AM EDT eCW1 ([facility]) Outpatient [address] [facility] [address] 11/12/2020 12:00:00 AM EDT eCW1 ([facility]) Outpatient [address] [facility], [place] [address] 11/11/2020 12:00:00 AM EDT eCW1 ([facility]) [place] [address] [facility] [address] 11/10/2020 12:00:00 AM EDT eCW1 ([facility]) Outpatient [address] [facility] [address] 11/09/2020 12:00:00 AM EDT eCW1 ([facility]) Outpatient [address] [facility] [address] 11/06/2020 12:00:00 AM EDT eCW1 ([facility]) ([id number]) For Template Gunn [address] [place] [address] 11/05/2020 12:00:00 AM EDT eCW1 ([facility]) Outpatient [address] [facility] [address] 11/05/2020 12:00:00 AM EDT eCW1 ([facility]) Outpatient [address] [facility] [address] 11/04/2020 12:00:00 AM EDT eCW1 ([facility]) [place]patient [address] [facility] [address] 11/03/2020 12:00:00 AM EDT eCW1 ([facility]) Outpatient [address] [facility] [address] 11/02/2020 12:00:00 AM EDT [facility]CW1 [facility] Outpatient [address] [facility] [address] 10/30/2020 12:00:00 AM EDT eCW1 ([facility]) ([id number]) For Template Gunn [address] [place] [address] 10/29/2020 12:00:00 AM EDT eCW1 ([facility]) Outpatient [address] [facility] [address] 10/29/2020 12:00:00 AM EDT eCW1 ([facility]) Outpatient [address] [facility] [address] 10/27/2020 12:00:00 AM EDT eCW1 ([facility]) Unknown [address] [facility] [address] 10/27/2020 12:00:00 AM EDT eCW1 ([facility]) Outpatient [address] [facility] [address] 10/21/2020 12:00:00 AM EST [facility]CW1 [facility] Outpatient [address] [facility] [address] 10/21/2020 12:00:00 AM EST eCW1 ([facility]) Outpatient [address] [facility] [address] 10/14/2020 12:00:00 AM EST eCW1 ([facility]) Office Visit Attender: YANDY MONTELONGO [facility] Office 09/15 09:45:00 AM EST MEDENT ([facility] ([id number]) For Template Gunn [address] [place] [address] 10/07/2020 12:00:00 AM EST eCW1 ([facility]) Outpatient Attender: Stephanie Nelson 09/24 12:00:00 PM EST MEDENT ([facility] ) ([id number]) For Template Gunn [address] [place] [address] 09/23/2020 12:00:00 AM EST eCW1 ([facility]) Office Visit Attender: YANDY MONTELONGO [facility] Office 12/2020 09:45:00 AM EST MEDENT ([facility] Outpatient Attender: YANDY MONTELONGO [facility] Office 08/15 09:45:00 AM EST MED[facility] ([facility] Unknown [address] [facility] [address] 09/11/2020 12:00:00 AM EST eCW1 ([facility]) Unknown [address] [facility] [address] 09/07/2020 12:00:00 AM EST eCW1 ([facility]) ([id number]) For Template Gunn [facility] [place] [address] 08/31/2020 12:00:00 AM EST eCW1 ([facility]) Unknown [address] [facility] [address] 08/26/2020 12:00:00 AM EST [facility]CW1 ([facility]) Outpatient Attender: YANDY MONTELONGO [facility] Office 03/2021 09:15:00 AM EST MED[facility] ([facility] ([id number]) For Template Gunn [address] [place] [address] 08/19/2020 12:00:00 AM EST eCW1 ([facility]) ([id number]) For Template Gunn [address] [place] [address] 08/11/2020 12:00:00 AM EST eCW1 ([facility]) Outpatient [address] [facility] [address] 08/05/2020 12:00:00 AM EST eCW1 ([facility]) ([id number]) For Template Gunn [address] [place] [address] 07/28/2020 12:00:00 AM EST eCW1 ([facility]) Office Visit Attender: Roseline SHERMAN [facility] office - [facility] 07/23/2020 10:00:00 AM EST MEDENT ([facility] ) ([id number]) For Template Gunn [address] [place] [address] 07/20/2020 12:00:00 AM EST eCW1 ([facility]) Unknown [address] [facility] [address] 07/13/2020 12:00:00 AM EST [facility]CW1 ([facility]) Outpatient [facility] [address] 06/22/2020 12:00:00 AM EST eCW1 ([facility]) Outpatient Attender: Stephanie Nelson 06/19 01:15:00 PM EST MEDENT ([facility] ) [place] [address] [facility] [place] [address] 06/16/2020 12:00:00 AM EST eCW1 ([facility]) Unknown [address] [facility] [address] 06/16/2020 12:00:00 AM EST eCW1 ([facility]) ([id number]) For Template Gunn [address] [place] [address] 06/03/2020 12:00:00 AM EDT eCW1 ([facility]) ([id number]) For Template Gunn [address] [place] [address] 05/20/2020 12:00:00 AM EDT eCW1 ([facility]) Outpatient Attender: Roseline SHERMAN [facility] 04/16/2020 09:30:00 AM EDT MEDENT ([facility] ) Outpatient Attender: Stephanie Nelson 04/13 02:30:00 PM EDT MEDENT ([facility] ) Outpatient [id number] 04/08/2020 10:34:04 PM EDT [facility] Outpatient Attender: Roseline SHERMAN [facility] 04/07/2020 10:30:00 AM EDT MEDENT ([facility] ) Outpatient SJP.J CARLOS-SJPCELESTINO 04/06/2020 12:00:00 AM EDT [facility] Immunizations Vaccine Date Status Description Data Source(s) COVID-19 VACCINE Dominic 11/13/2020 12:00:00 AM EDT completed [facility] Vaccine Series Complete: YESThis Data wa s Submitted to [facility] Via [facility]. Medications Medication Brand Name Start Date Product Form Dose Route Admi nistrative Instructions Pharmacy Instructions Status Indications Reaction Description Data Source(s) apixaban 5 MG Oral Tablet [Eliquis] Eliquis 11/26/2020 12:00:00 AM E DT ORAL active MEDENT ([facility]) Covid-19 vaccine, Unspecified 11/13/2020 12:00:00 AM EDT completed [facility] Medication administered onsite Clindamycin 150 MG Oral Capsule Clindamycin HCl 150 MG Clind amycin HCl 150 MG 08/11/2020 12:00:00 AM EST active Clindamycin HCl 150 MG eCW1 ([facility]) Clindamycin 150 MG Oral Capsule Clindamycin HCl 150 MG Clind amycin HCl 150 MG 08/11/2020 12:00:00 AM EST active Clindamycin HCl 150 MG eCW1 ([facility]) Clindamycin 150 MG Oral Capsule Clindamycin HCl 150 MG Clind amycin HCl 150 MG 08/11/2020 12:00:00 AM EST active Clindamycin HCl 150 MG eCW1 ([facility]) Clindamycin 150 MG Oral Capsule Clindamycin HCl 150 MG Clind amycin HCl 150 MG 08/11/2020 12:00:00 AM EST active Clindamycin HCl 150 MG eCW1 ([facility]) Clindamycin 150 MG Oral Capsule Clindamycin HCl 150 MG Clind amycin HCl 150 MG 08/11/2020 12:00:00 AM EST active Clindamycin HCl 150 MG eCW1 ([facility]) Clindamycin 150 MG Oral Capsule Clindamycin HCl 150 MG Clind amycin HCl 150 MG 08/11/2020 12:00:00 AM EST active Clindamycin HCl 150 MG eCW1 ([facility]) Clindamycin 150 MG Oral Capsule Clindamycin HCl 150 MG Clind amycin HCl 150 MG 08/11/2020 12:00:00 AM EST active Clindamycin HCl 150 MG eCW1 ([facility]) Clindamycin 150 MG Oral Capsule Clindamycin HCl 150 MG Clind amycin HCl 150 MG 08/11/2020 12:00:00 AM EST active Clindamycin HCl 150 MG eCW1 ([facility]) Clindamycin 150 MG Oral Capsule Clindamycin HCl 150 MG Clind amycin HCl 150 MG 08/11/2020 12:00:00 AM EST active Clindamycin HCl 150 MG eCW1 ([facility]) Clindamycin 150 MG Oral Capsule Clindamycin HCl 150 MG Clind amycin HCl 150 MG 08/11/2020 12:00:00 AM EST active Clindamycin HCl 150 MG eCW1 ([facility]) Clindamycin 150 MG Oral Capsule Clindamycin HCl 150 MG Clind amycin HCl 150 MG 08/11/2020 12:00:00 AM EST active Clindamycin HCl 150 MG eCW1 ([facility]) Clindamycin 150 MG Oral Capsule Clindamycin HCl 150 MG Clind amycin HCl 150 MG 08/11/2020 12:00:00 AM EST active Clindamycin HCl 150 MG eCW1 ([facility]) Clindamycin 150 MG Oral Capsule Clindamycin HCl 150 MG Clind amycin HCl 150 MG 08/11/2020 12:00:00 AM EST active Clindamycin HCl 150 MG eCW1 ([facility]) Clindamycin 150 MG Oral Capsule Clindamycin HCl 150 MG Clind amycin HCl 150 MG 08/11/2020 12:00:00 AM EST active Clindamycin HCl 150 MG eCW1 ([facility]) Clindamycin 150 MG Oral Capsule Clindamycin HCl 150 MG Clind amycin HCl 150 MG 08/11/2020 12:00:00 AM EST active Clindamycin HCl 150 MG eCW1 ([facility]) Clindamycin 150 MG Oral Capsule Clindamycin HCl 150 MG Clind amycin HCl 150 MG 08/11/2020 12:00:00 AM EST active Clindamycin HCl 150 MG eCW1 ([facility]) Clindamycin 150 MG Oral Capsule Clindamycin HCl 150 MG Clind amycin HCl 150 MG 08/11/2020 12:00:00 AM EST active Clindamycin HCl 150 MG eCW1 ([facility]) Clindamycin 150 MG Oral Capsule Clindamycin HCl 150 MG Clind amycin HCl 150 MG 08/11/2020 12:00:00 AM EST active Clindamycin HCl 150 MG eCW1 ([facility]) Clindamycin 150 MG Oral Capsule Clindamycin HCl 150 MG Clind amycin HCl 150 MG 08/11/2020 12:00:00 AM EST active Clindamycin HCl 150 MG eCW1 ([facility]) Clindamycin 150 MG Oral Capsule Clindamycin HCl 150 MG Clind amycin HCl 150 MG 08/11/2020 12:00:00 AM EST active Clindamycin HCl 150 MG eCW1 ([facility]) Clindamycin 150 MG Oral Capsule Clindamycin HCl 150 MG Clind amycin HCl 150 MG 08/11/2020 12:00:00 AM EST active Clindamycin HCl 150 MG eCW1 ([facility]) Clindamycin 150 MG Oral Capsule Clindamycin HCl 150 MG Clind amycin HCl 150 MG 08/11/2020 12:00:00 AM EST active Clindamycin HCl 150 MG eCW1 ([facility]) Clindamycin 150 MG Oral Capsule Clindamycin HCl 150 MG Clind amycin HCl 150 MG 08/11/2020 12:00:00 AM EST suspended Clindamycin HCl 150 MG eCW1 ([facility]) Clindamycin 150 MG Oral Capsule Clindamycin HCl 150 MG Clind amycin HCl 150 MG 08/11/2020 12:00:00 AM EST active Clindamycin HCl 150 MG eCW1 ([facility]) Clindamycin 150 MG Oral Capsule Clindamycin HCl 150 MG Clind amycin HCl 150 MG 08/11/2020 12:00:00 AM EST active Clindamycin HCl 150 MG eCW1 ([facility]) Clindamycin 150 MG Oral Capsule Clindamycin HCl 150 MG Clind amycin HCl 150 MG 08/11/2020 12:00:00 AM EST active Clindamycin HCl 150 MG eCW1 ([facility]) Clindamycin 150 MG Oral Capsule Clindamycin HCl 150 MG Clind amycin HCl 150 MG 08/11/2020 12:00:00 AM EST active Clindamycin HCl 150 MG eCW1 ([facility]) Clindamycin 150 MG Oral Capsule Clindamycin HCl 150 MG Clind amycin HCl 150 MG 08/11/2020 12:00:00 AM EST active Clindamycin HCl 150 MG eCW1 ([facility]) Clindamycin 150 MG Oral Capsule Clindamycin HCl 150 MG Clind amycin HCl 150 MG 08/11/2020 12:00:00 AM EST active Clindamycin HCl 150 MG eCW1 ([facility]) Clindamycin 150 MG Oral Capsule Clindamycin HCl 150 MG Clind amycin HCl 150 MG 08/11/2020 12:00:00 AM EST active Clindamycin HCl 150 MG eCW1 ([facility]) Clindamycin 150 MG Oral Capsule Clindamycin HCl 150 MG Clind amycin HCl 150 MG 08/11/2020 12:00:00 AM EST active Clindamycin HCl 150 MG eCW1 ([facility]) Clindamycin 150 MG Oral Capsule Clindamycin HCl 150 MG Clind amycin HCl 150 MG 08/11/2020 12:00:00 AM EST active Clindamycin HCl 150 MG eCW1 ([facility]) Clindamycin 150 MG Oral Capsule Clindamycin HCl 150 MG Clind amycin HCl 150 MG 08/11/2020 12:00:00 AM EST active Clindamycin HCl 150 MG eCW1 ([facility]) Clindamycin 150 MG Oral Capsule Clindamycin HCl 150 MG Clind amycin HCl 150 MG 08/11/2020 12:00:00 AM EST active Clindamycin HCl 150 MG eCW1 ([facility]) Clindamycin 150 MG Oral Capsule Clindamycin HCl 150 MG Clind amycin HCl 150 MG 08/11/2020 12:00:00 AM EST active Clindamycin HCl 150 MG eCW1 ([facility]) Clindamycin 150 MG Oral Capsule Clindamycin HCl 150 MG Clind amycin HCl 150 MG 08/11/2020 12:00:00 AM EST active Clindamycin HCl 150 MG eCW1 ([facility]) Clindamycin 150 MG Oral Capsule Clindamycin HCl 150 MG Clind amycin HCl 150 MG 08/11/2020 12:00:00 AM EST active eCW1 ([facility]) Clindamycin 150 MG Oral Capsule Clindamycin HCl 150 MG Clind amycin HCl 150 MG 08/11/2020 12:00:00 AM EST active Clindamycin HCl 150 MG eCW1 ([facility]) Clindamycin 150 MG Oral Capsule Clindamycin HCl 150 MG Clind amycin HCl 150 MG 08/11/2020 12:00:00 AM EST active Clindamycin HCl 150 MG eCW1 ([facility]) Clindamycin 150 MG Oral Capsule Clindamycin HCl 150 MG Clind amycin HCl 150 MG 08/11/2020 12:00:00 AM EST active Clindamycin HCl 150 MG eCW1 ([facility]) Clindamycin 150 MG Oral Capsule Clindamycin HCl 150 MG Clind amycin HCl 150 MG 08/11/2020 12:00:00 AM EST active Clindamycin HCl 150 MG eCW1 ([facility]) Clindamycin 150 MG Oral Capsule Clindamycin HCl 150 MG Clind amycin HCl 150 MG 08/11/2020 12:00:00 AM EST active Clindamycin HCl 150 MG eCW1 ([facility]) Clindamycin 150 MG Oral Capsule Clindamycin HCl 150 MG Clind amycin HCl 150 MG 08/11/2020 12:00:00 AM EST active Clindamycin HCl 150 MG eCW1 ([facility]) Clindamycin 150 MG Oral Capsule Clindamycin HCl 150 MG Clind amycin HCl 150 MG 08/11/2020 12:00:00 AM EST active Clindamycin HCl 150 MG eCW1 ([facility]) Clindamycin 150 MG Oral Capsule Clindamycin HCl 150 MG Clind amycin HCl 150 MG 08/11/2020 12:00:00 AM EST active Clindamycin HCl 150 MG eCW1 ([facility]) Clindamycin 150 MG Oral Capsule Clindamycin HCl 150 MG Clind amycin HCl 150 MG 08/11/2020 12:00:00 AM EST active Clindamycin HCl 150 MG eCW1 ([facility]) Clindamycin 150 MG Oral Capsule Clindamycin HCl 150 MG Clind amycin HCl 150 MG 08/11/2020 12:00:00 AM EST active Clindamycin HCl 150 MG eCW1 ([facility]) Clindamycin 150 MG Oral Capsule Clindamycin HCl 150 MG Clind amycin HCl 150 MG 08/11/2020 12:00:00 AM EST active Clindamycin HCl 150 MG eCW1 ([facility]) Clindamycin 150 MG Oral Capsule Clindamycin HCl 150 MG Clind amycin HCl 150 MG 08/11/2020 12:00:00 AM EST active Clindamycin HCl 150 MG eCW1 ([facility]) Clindamycin 150 MG Oral Capsule Clindamycin HCl 150 MG Clind amycin HCl 150 MG 08/11/2020 12:00:00 AM EST active Clindamycin HCl 150 MG eCW1 ([facility]) Clindamycin 150 MG Oral Capsule Clindamycin HCl 150 MG Clind amycin HCl 150 MG 08/11/2020 12:00:00 AM EST active Clindamycin HCl 150 MG eCW1 ([facility]) Clindamycin 150 MG Oral Capsule Clindamycin HCl 150 MG Clind amycin HCl 150 MG 08/11/2020 12:00:00 AM EST suspended Clindamycin HCl 150 MG eCW1 ([facility]) Clindamycin 150 MG Oral Capsule Clindamycin HCl 150 MG Clind amycin HCl 150 MG 08/11/2020 12:00:00 AM EST active Clindamycin HCl 150 MG eCW1 ([facility]) Clindamycin 150 MG Oral Capsule Clindamycin HCl 150 MG Clind amycin HCl 150 MG 08/11/2020 12:00:00 AM EST active Clindamycin HCl 150 MG eCW1 ([facility]) Clindamycin 150 MG Oral Capsule Clindamycin HCl 150 MG Clind amycin HCl 150 MG 08/11/2020 12:00:00 AM EST active Clindamycin HCl 150 MG eCW1 ([facility]) Clindamycin 150 MG Oral Capsule Clindamycin HCl 150 MG Clind amycin HCl 150 MG 08/11/2020 12:00:00 AM EST active Clindamycin HCl 150 MG eCW1 ([facility]) Clindamycin 150 MG Oral Capsule Clindamycin HCl 150 MG Clind amycin HCl 150 MG 08/11/2020 12:00:00 AM EST active Clindamycin HCl 150 MG eCW1 ([facility]) Clindamycin 150 MG Oral Capsule Clindamycin HCl 150 MG Clind amycin HCl 150 MG 08/11/2020 12:00:00 AM EST active Clindamycin HCl 150 MG eCW1 ([facility]) Clindamycin 150 MG Oral Capsule Clindamycin HCl 150 MG Clind amycin HCl 150 MG 08/11/2020 12:00:00 AM EST active Clindamycin HCl 150 MG eCW1 ([facility]) Clindamycin 150 MG Oral Capsule Clindamycin HCl 150 MG Clind amycin HCl 150 MG 08/11/2020 12:00:00 AM EST active Clindamycin HCl 150 MG eCW1 ([facility]) Clindamycin 150 MG Oral Capsule Clindamycin HCl 150 MG Clind amycin HCl 150 MG 08/11/2020 12:00:00 AM EST active Clindamycin HCl 150 MG eCW1 ([facility]) Clindamycin 150 MG Oral Capsule Clindamycin HCl 150 MG Clind amycin HCl 150 MG 08/11/2020 12:00:00 AM EST active Clindamycin HCl 150 MG eCW1 ([facility]) Clindamycin 150 MG Oral Capsule Clindamycin HCl 150 MG Clind amycin HCl 150 MG 08/11/2020 12:00:00 AM EST active Clindamycin HCl 150 MG eCW1 ([facility]) Clindamycin 150 MG Oral Capsule Clindamycin HCl 150 MG Clind amycin HCl 150 MG 08/11/2020 12:00:00 AM EST active Clindamycin HCl 150 MG eCW1 ([facility]) Clindamycin 150 MG Oral Capsule Clindamycin HCl 150 MG Clind amycin HCl 150 MG 08/11/2020 12:00:00 AM EST active Clindamycin HCl 150 MG eCW1 ([facility]) Clindamycin 150 MG Oral Capsule Clindamycin HCl 150 MG Clind amycin HCl 150 MG 08/11/2020 12:00:00 AM EST active Clindamycin HCl 150 MG eCW1 ([facility]) Clindamycin 150 MG Oral Capsule Clindamycin HCl 150 MG Clind amycin HCl 150 MG 08/11/2020 12:00:00 AM EST active Clindamycin HCl 150 MG eCW1 ([facility]) Clindamycin 150 MG Oral Capsule Clindamycin HCl 150 MG Clind amycin HCl 150 MG 08/11/2020 12:00:00 AM EST active Clindamycin HCl 150 MG eCW1 ([facility]) Clindamycin 150 MG Oral Capsule Clindamycin HCl 150 MG Clind amycin HCl 150 MG 08/11/2020 12:00:00 AM EST active Clindamycin HCl 150 MG eCW1 ([facility]) Clindamycin 150 MG Oral Capsule Clindamycin HCl 150 MG Clind amycin HCl 150 MG 08/11/2020 12:00:00 AM EST active Clindamycin HCl 150 MG eCW1 ([facility]) Clindamycin 150 MG Oral Capsule Clindamycin HCl 150 MG Clind amycin HCl 150 MG 08/11/2020 12:00:00 AM EST active Clindamycin HCl 150 MG eCW1 ([facility]) Clindamycin 150 MG Oral Capsule Clindamycin HCl 150 MG Clind amycin HCl 150 MG 08/11/2020 12:00:00 AM EST active Clindamycin HCl 150 MG eCW1 ([facility]) Clindamycin 150 MG Oral Capsule Clindamycin HCl 150 MG Clind amycin HCl 150 MG 08/11/2020 12:00:00 AM EST active Clindamycin HCl 150 MG eCW1 ([facility]) Clindamycin 150 MG Oral Capsule Clindamycin HCl 150 MG Clind amycin HCl 150 MG 08/11/2020 12:00:00 AM EST active Clindamycin HCl 150 MG eCW1 ([facility]) Clindamycin 150 MG Oral Capsule Clindamycin HCl 150 MG Clind amycin HCl 150 MG 08/11/2020 12:00:00 AM EST active Clindamycin HCl 150 MG eCW1 ([facility]) Clindamycin 150 MG Oral Capsule Clindamycin HCl 150 MG Clind amycin HCl 150 MG 08/11/2020 12:00:00 AM EST active Clindamycin HCl 150 MG eCW1 ([facility]) Clindamycin 150 MG Oral Capsule Clindamycin HCl 150 MG Clind amycin HCl 150 MG 08/11/2020 12:00:00 AM EST active Clindamycin HCl 150 MG eCW1 ([facility]) Clindamycin 150 MG Oral Capsule Clindamycin HCl 150 MG Clind amycin HCl 150 MG 08/11/2020 12:00:00 AM EST active Clindamycin HCl 150 MG eCW1 ([facility]) Clindamycin 150 MG Oral Capsule Clindamycin HCl 150 MG Clind amycin HCl 150 MG 08/11/2020 12:00:00 AM EST active Clindamycin HCl 150 MG eCW1 ([facility]) BD Pen Needle/Mahsa 2ND Gen/32G X 5/32" 06/30/2020 12:00:00 AM ES T active [facility] Allergy 04/13/2020 12:00:00 AM EDT active MEDENT ([facility]) Furosemide 20 MG Oral Tablet Furosemide 04/13/2020 12:00:00 AM EDT active MEDENT ([facility]) torsemide 10 MG Oral Tablet Torsemide 04/13/2020 12:00:00 AM EDT ORAL completed MEDENT ([facility]) Insurance Providers Payer name Policy type / Coverage type Policy ID Covered democrat ID Covered democrat's relationship to gunn Policy Gunn Plan Information [employer] PL[employer] [id number] SP [id number] [employer] (Old) Medigap Part B [id number] [id number] 3.3.227.99.4595.02243.0 Self [id number] Umr [employer] Ppo Medigap Part B [id number] 2.16.840.1.952043.3.227.9 9.4595.34668.0 Self [id number] Umr [place] Ppo Medigap Part B [id number] 2.16.840.1.805309.3.227.9 9.4595.90479.0 Self [id number] [employer]/Um[employer] (Old) Medigap Part B [id number] 2.16.840.1.26245 3.3.227.99.4595.42656.0 Self [id number] [employer] Ppo Medigap Part B [id number] 2.16.840.1.906491.3.227.99.4595. 05902.0 Self [id number] [employer] (Old) Medigap Part B [id number] Self [id number] [employer] (Old) Medigap Part B [id number] 2.16.840.1.60170 3.3.227.99.4595.22188.0 Self [id number] [employer] (Old) Medigap Part B [id number] 2.16.840.1.59378 3.3.227.99.4595.49832.0 Self [id number] [employer] (Old) Medigap Part B [id number] 2.16.840.1.71939 3.3.227.99.4595.08653.0 Self [id number] Umr [employer] Ppo Medigap Part B [id number] 2.16.840.1.628936.3.227.9 9.4595.61201.0 Self [id number] [employer] (Old) Medigap Part B [id number] 2.16.840.1.39903 3.3.227.99.4595.93951.0 Self [id number] [facility] [id number] SP [id number] Medicaid Medicaid [id number] 2.16.840.1.247779.3.227.99.4595.26373.0 Self [id number] [facility] Medicare Community PL Commercial [id number] 2.16.840.1.604546.3.227.99.4595.16140.0 Self [id number] [facility] Medicare Community PL Commercial [id number] 2.16.840.1.668001.3.227.99.4595.81989.0 Self [id number] Medicaid Medicaid [id number] 2.16.840.1.212592.3.227.99.4595.77286.0 Self [id number] [facility] Medicare Community PL Commercial [id number] 2.16.840.1.902252.3.227.99.4595.28770.0 Self [id number] [facility] [id number] SP [id number] [facility] Medicare Community PL Commercial [id number] 2.16.840.1.853683.3.227.99.4595.40744.0 Self [id number] [facility] Medicare Community PL Commercial [id number] 2.16.840.1.950447.3.227.99.4595.01359.0 Self [id number] [facility] Medicare Community PL Commercial [id number] 2.16.840.1.225208.3.227.99.4595.18966.0 Self [id number] [facility] Medicare [facility] Commercial [id number] 2.16840.1.919119.3.227.99.4595.54459.0 Self [id number] [facility] Medicare Community [facility] Commercial [id number] Self [id number] [facility] Medicare [facility] Commercial [id number] 2.840.1.913189.3.227.99.4595.14037.0 Self [id number] [facility] Commercial [id number] 2.840.1.358370.3.227.99.4595.64091.0 Self [id number] Medicaid Medicaid [id number] 2.840.1.256393.3.227.99.4595.05285.0 Self [id number] [facility] Commercial [id number] 2.0.1.199952.3.227.99.4595.68323.0 Self [id number] Medicaid Medicaid [id number] 2.840.1.342994.3.227.99.4595.33502.0 Self [id number] [facility] Wes[employer]/Ess PLS Commercial [id number] Self [id number] [facility] Commercial [id number] 2.840.1.903997.3.227.99.8646.04810.0 Self [id number] Medicaid Medigap Part B [id number] MRN.[id number] Self [id number] Medicaid Medigap Part B [id number] .840.1.366414.3.227.99.4595.248 08.0 Self [id number] Medicaid Medicaid [id number] 2.840.1.119872.3.227.99.4595.54802.0 Self [id number] Medicaid Medigap Part B [id number] 2.16.840.1.356017.3.227.99.4595.248 08.0 Self [id number] Medicare Natl [employer] Medicare Primary [id number] MRN.[id number] Self [id number] Medicare Natl Govt [employer] Medicare Primary [id number] 2.16840.1.746777.3.227.99.4595.62150.0 Self [id number] Medicare Natl Govt Servic Medicare Primary [id number] 2.16840.1.518537.3.227.99.4595.45182.0 Self [id number] [facility] Medicare Community Commercial [id number].[id number] Self [id number] [facility] MEDICAID [id number] [facility] [id number] [address] [facility] [id number] ANSI-Commercial [id number] ANSI-Commercial [id number] ANSI-Not a Secondary Insurance [id number] [id number]-[id number] ANSI-Medicaid [id number] ANSI-Medicare Part B [id number] ANSI-Commercial [id number]-048g-5u23-tl72-[id number] ANSI-Medicaid [id number] ANSI-Commercial [id number]-[id number]-[id number] ANSI-Commercial [id number]-1pc5-m963-3848ucl3m2x3 y8and319-1x3k-8th5-i223-8918jyz9z7o7 ANSI-Commercial [id number] f47i[id number] ANSI-Medicaid [id number] ANSI-Medicare Part B [id number] ANSI-Not a Secondary Insurance [id number] ANSI-Medicaid [id number] ANSI-Commercial [id number]-nx25-5d3k-401l-b20c064893c9 z2h5a678-od71-9w6w-398g-[id number] ANSI-Commercial 63b6t78l-8vdk-48l5-p2j1-[id number] 29i3z09v-1gcw-73r0-l7c0-[id number] ANSI-Medicaid [id number] ANSI-Commercial 543jl0e8-4297-254x-bnl3-j12865dck73p 718em5g6-3480-018f-zri4-h00693gxj91s ANSI-Not a Secondary Insurance [id number] [id number]-7mt4-6r82-4jw1h9130975 ANSI-Medicaid [id number] ANSI-Medicare Part B [id number] ANSI-Commercial [id number]-p241fvst8z81 3y6mu437-86n3-15b2-5j79-g141jkow7a53 ANSI-Medicaid [id number] ANSI-Commercial [id number]-kj90-2w6b-t30g-y8n99eu85828 5kx9496o-dm99-0d5p-p41u-h4m84ia23338 ANSI-Medicaid [id number] ANSI-Not a Secondary Insurance [id number] [id number] 7sqi16ba-3mz3-8y97-98q4-2085p5u99e64 ANSI-Medicare Part B [id number] ANSI-Commercial [id number]-th5q-449e-168s-7m2b60u8a45i bea2f43v-dl8p-514y-258u-8q4m77b7x86u ANSI-Not a Secondary Insurance 10994oux-2t2a-06y3-gy19-w9u2e [id number]-7s9o-85b9-pv78-o0l7s5q56479 ANSI-Commercial 459v8g71-49p7-3il7-6t39-3exg86zm30j0 146t7l02-15q3-8sz7-1f36-1bny61kl60k1 ANSI-Commercial 4e58o588-7q22-8p18-ke43-00w9q64r18v0 2u80u616-3f49-7v10-yv63-95x9i92q19u3 ANSI-Medicare Part B [id number] ANSI-Medicaid [id number] ANSI-Commercial 1wg257h3-6802-8574-we81-891lk0t5482l 3kp189m5-4896-1571-ae54-959wo4d7968i ANSI-Medicaid [id number] ANSI-Not a Secondary Insurance [id number] [id number]-[id number] ANSI-Medicare Part B [id number] ANSI-Commercial 6mri519v-99z1-76t7-v154-y412r0p72q31 4lmg298y-17c9-10d6-a186-t366x0o36f52 ANSI-Medicaid [id number] ANSI-Commercial [id number]-7080-0m93-s79r-4kok8638z273 8j43550s-9979-7m25-m58p-[id number] ANSI-Medicaid [id number] ANSI-Commercial [id number]-u493k138h3bl 8rx72618-6d62-09b4-8p85-c818h754m9ij Managed Care - [facility] P UNAVAILABLE S UNAVAILABLE Medicaid Dental S [id number] S [id number] D Managed Care [facility] P [id number] S [id number] Medicaid Medigap Part B [id number] MRN.[id number] Self [id number] Medicare Part B Medicare Primary [id number] MRN.[id number] Self [id number] [facility] Dual Complete Commercial [id number] MRN.[id number] Self [id number] ANSI-Commercial [id number]-on2p-2578-to43-07860y11xtlo 0m797p9v-jr5l-9861-pb07-98570s70hjsd ANSI-Medicaid [id number] ANSI-Commercial [id number]-15mb-2805-53209t2l7j1p 08240872-0fnq-47bk-1434-67271p0l4c7m ANSI-Commercial 22g8l719-4581-8yw8-gwby-1d7790d2te2d 87v1f463-6812-6wb5-nnhe-7k4881r0cl2q ANSI-Not a Secondary Insurance [id number]-[id number] [id number]-e5k6-[id number] ANSI-Medicaid [id number] ANSI-Medicare Part B [id number] ANSI-Medicare Part B [id number] ANSI-Medicaid [id number] ANSI-Commercial [id number]-rg21-5y84-6916-i8a1ap62974k f976x22r-nb46-2z70-8782-c6w8mx83812g ANSI-Commercial 6000s7uy-xw66-9462-6425-75n0442km569 6635k1he-od07-3936-5128-82j6797xl720 ANSI-Medicaid [id number] ANSI-Commercial [id number]-54b1-6m88-46t4-q78598e08vn5 365a907x-83q2-6b57-57k3-x02821n24bg9 ANSI-Not a Secondary Insurance [id number]-[id number] ANSI-Not a Secondary Insurance fr5u3as2-x447-1bmk-387i-7v15q s1oohs0 kt0b9ee6-z347-4zzd-768k-5v74ln5uarg0 ANSI-Commercial 933pfv2k-stp4-324g-zwn9-u8a524a1j1sc 589jen0i-dug8-797z-zvq8-t0v365c5s7ql ANSI-Commercial 755g9q7j-2699-8j3p-79x1-4c8z43765289 613s8f3x-9440-8a9p-74z3-7s7m36985323 ANSI-Medicaid [id number] ANSI-Medicaid [id number] ANSI-Commercial 66h26sj3-h8u1-4913-o08r-7788l1v23629 61n82ue8-y7y4-3450-o65p-1384t2s85696 ANSI-Medicare Part B [id number] ANSI-Commercial 859q0l2o-ofqn-7052-yahw-628hd3g69344 987c8n0l-ymou-0379-rits-014hr7f11076 ANSI-Medicaid [id number] ANSI-Commercial lm552557-454n-85h7-7gx8-5d7r6ki1bnb5 bo445069-453l-55k7-7kn6-4j2r1at8ddq6 ANSI-Commercial jk05n13m-66d2-1852-1d64-39a59b7sc112 mc05h51l-17z0-0774-7p33-66v67p5te671 ANSI-Medicare Part B [id number] ANSI-Not a Secondary Insurance 8st3s7v7-k5y4-83z7-ny69-5515d l8owzg6 3ut9q9y2-l2r0-91r8-fl03-6296tp5iwik9 ANSI-Medicaid [id number] ANSI-Commercial [id number]-[id number] 8f604r0a-[id number] ANSI-Medicaid [id number] ANSI-Commercial 8891b6m0-2k7h-50im-pi8b-0eghs7ya5buo 9489k9w4-5s7c-16bs-mn3r-0wgej8uq3kgw ANSI-Not a Secondary Insurance 6dko43e9-8j8l-4n10-9792-r9916 il1g31l 7ggm76g4-7f2v-2o14-7406-v4110ct5g41j ANSI-Commercial 8x95n6k5-h9d8-53wb-fzlq-68u1854om444 1o70r1u1-d2r6-21df-bpzz-52h4547zi501 ANSI-Medicare Part B [id number] ANSI-Medicaid [id number] ANSI-Medicare Part B [id number] ANSI-Commercial 2422rq09-a95s-6c3v-yi13-3083q55y9n6u 6924hq85-w13q-8u3c-cc97-9990t55c2q6x ANSI-Medicaid [id number] ANSI-Medicaid [id number]-[id number] ANSI-Not a Secondary Insurance j01w9wnz-2796-6a99-w0ll-o75n9 dpi326k w94y1fgn-2378-3b26-x1bj-u78f7bzp336y ANSI-Commercial i2950pk7-s1sw-3470-553n-2335s2978yh1 n4630wr5-c7fx-4647-541z-5113o6208dq4 ANSI-Commercial 3188d243-1064-883b-2bo0-9509795591ed 1595m516-2199-943n-8zo3-7966334885ho ANSI-Not a Secondary Insurance dd1buc64-k758-37he-w57v-2dm1b 7dl9r98 re3qab73-z140-47by-y74p-1sn7t0oc4t47 ANSI-Commercial 0547d240-g032-8whv-7i42-v3dg752813d7 8362n875-k262-1dzs-2h76-n0ou522883j2 ANSI-Commercial 6ii39k65-15h4-27do-vql5-h6pp526d6uvk 6gy59u79-01z3-51ad-kim9-q3aw098b4qlv ANSI-Medicaid [id number]-[id number] ANSI-Commercial 116l9lp0-47z2-5494-451w-145ph12r9di9 102s8af5-28u3-5159-123x-239uk01m4vu7 ANSI-Medicaid [id number]-1432-1ikm-[id number] ANSI-Medicare Part B [id number]-o361-2g06-vq4z-g0k23qqt2c6j ANSI-Medicaid [id number]-[id number]-[id number]-[id number] ANSI-Commercial 74jsplpj-2x97-1a818d83-6j93-1341-24058vj15m71 81ysrkuh-8d11-0b798i10-1b12-9116-47032rg28n86 ANSI-Medicaid [id number] ANSI-Commercial 3a1391d1-knc3-41ez-8675-9s6ci34cq79j 9r5838t7-pez8-35ng-3276-5e1rd65mq25z ANSI-Medicare Part B [id number] ANSI-Commercial zc122r49-29b9-7h68-185c-fd491267pfv9 cs238s16-54x5-5r01-811l-px957386ilr4 ANSI-Not a Secondary Insurance [id number]-3271-8bpn-54wxx k5c7u52 78005613-1aen-9343-1lxh-15gqgd3u3u87 ANSI-Medicare Part B [id number]-08zf-aw88-[id number] ANSI-Commercial 8652h1ec-674u-23qj-x272-4i3eo7z70ij8 1399y1pe-409n-07xt-w199-6o1ud3e54yy9 ANSI-Medicaid [id number] ANSI-Medicaid [id number]-95mv-580l-qq2w-7cta0n1g61u4 ANSI-Commercial 8128ic76-6988-8z83-6d0c-8xn51sd3663e 4045xr77-5034-3g11-3p6e-3ui19lm0191v ANSI-Commercial e1t7q3oj-1k7c-85f1-j16i-ia2167w64553 l5m0e0on-7r7c-28d1-g03v-rp4823s53467 ANSI-Not a Secondary Insurance 5t365i7s-7j70-8o5p-8hv8-5w326 w5843w6 3c912f6l-2b40-4r4o-2rn8-2d176g9340w7 ANSI-Commercial 13i904w9-df2y-672a-t761-d91wcv786oh8 75c101e9-zv1j-925c-d040-v46ahd802bj6 ANSI-Medicaid [id number]-07u1-3492-60n4-w2r3a68g7l32 ANSI-Medicaid [id number]-9998-[id number] ANSI-Commercial 8e77ujr9-k2c6-7kq8-3t36-6374h91qig80 7e94qci1-r2r4-8jl4-7h86-3016m58fdi27 ANSI-Not a Secondary Insurance 490uncdy-n747-7z6zm625-4p4l-2528-90rt2 3ph00c6 143mdoer-v223-6k3gp089-8k4x-2308-37nq41sd10m4 ANSI-Commercial 3r8b022m-e577-10ci-j619-7e8171at6m14 8d5j671s-a821-37fn-d109-2b0704hy5r77 ANSI-Medicare Part B [id number]-v7e7-9f88-u1qo-[id number] ANSI-Commercial mu014vh4-0t0g-6ty2-172b-21626c22f223 iy862xj5-2g8y-0oy0-266y-48404e11l053 ANSI-Medicare Part B [id number] 89hpidl9-74kt-5199-d061-kyo663yp2vm7 ANSI-Commercial 28o78mo6-cj55-9296-rt5m-3kqnjq5k355i 32p07xm2-wy02-5382-dl4h-6rcerd3d890o ANSI-Commercial 188ft1o7-c068-7790-5r4o-2xs5j0yw1e7h 381ie5x1-t381-7743-7s9x-3ol7l3si7d0e ANSI-Medicaid [id number] 0d0se09h-81vo-750h-3l91-7tw69l4qyh32 ANSI-Medicaid [id number] 1v0r9u70-5e74-17sb-x8n4-[id number] ANSI-Not a Secondary Insurance [id number]-6838-2gaw-919y1 06160n3 20374919-1n0y-1701-3pcp-428y631008n6 ANSI-Commercial 7ixt0t9e-5uf2-5hk3-y5w1-4d5k72ar3ue6 2gvj1t7m-4cq5-8hc8-s6b9-7v7v39jj7by4 ANSI-Medicaid [id number] 680s63p4-0azm-5997-to92-6pl70nyy8zi6 ANSI-Commercial h97c1459-1062-0558-e216-46x3wv00n9jo n60l7517-6994-4281-o067-34h7us79m2vr ANSI-Commercial 94m41wo3-70bg-27p3-6449-e1l597c6g179 74o94ii0-19qr-97s3-9441-h8t232w0x435 ANSI-Medicare Part B [id number]-[id number] ANSI-Not a Secondary Insurance [id number]1946 322689n 808m9767-6275-4362-2h85-91094459884p ANSI-Medicaid [id number] ANSI-Medicaid [id number] ANSI-Commercial 2g87d7o8-7do9-407g-orv0-h2oy3136w8g3 7n98k1e3-0ru4-201h-rky5-h2mh4977i1u7 ANSI-Commercial 2i9n966m-45m3-9d27-45y5-59376apk71q2 6z7t524f-37s9-6n48-80d2-07258fip26u5 ANSI-Medicare Part B [id number]-dsv4-20la-40fs-[id number] ANSI-Commercial 8i7698xq-4z16-2786-658c-222302fl11j9 6i3541zd-4f53-0882-771x-008010wh05t1 ANSI-Medicaid [id number]-21q8-34um-5w99-50la54t7e4v4 ANSI-Not a Secondary Insurance quyjt771-0y91-5061-8n88-6725u 0kb49b2 rpyqi728-4p97-4301-4i27-7337q1sf04f9 ANSI-Commercial 342384o3-6h24-5y75-b7c6-7ahm49d9z3j3 253558m9-5o47-0u64-s8j2-7enn45m6b0q9 ANSI-Commercial 962069pw-0449-72d3-ud71-d009s08363ef 758027em-3682-84j7-zz80-k422t44746ss ANSI-Medicaid [id number] cz8e7z69-f30x-6lf3-5p11-t55dufnb2wsl ANSI-Not a Secondary Insurance 0q1ak50n-46uz-3214-o24j-27958 0045nh0 0b4sa84p-22lh-2197-q54h-769599791uj0 ANSI-Commercial 2jf9t80z-ho4q-5068-3q3q-1h5985y93ec0 8sd3i09a-pt5r-2868-0g2e-3w1466h71la0 ANSI-Medicare Part B [id number] ANSI-Medicaid [id number]-[id number] ANSI-Commercial 1398t7w0-u83g-94m9-gi79-1wh3oa6ic734 8691b5k7-k51c-32w2-zu70-6px1ci0qu298 ANSI-Medicaid [id number]-0542-567z-bhkb-[id number] ANSI-Not a Secondary Insurance [id number]-aa3t-17l1-z1st-41s9y a37663cf-fw2s-36e5-u4wz-35b6xygyif71 ANSI-Commercial 44261e9w-6450-57p1-b3j6-6l567d7e963v 24585f2y-0996-99w7-n9a2-4j852y4q333b ANSI-Medicaid [id number]-33h2-59x9-60qq0c50p7n4 ANSI-Commercial 1b82a7l1-n4k5-5366-z553-13953t60op6p 6n46o5z8-r0b1-0171-g560-41387x80tm9g ANSI-Medicare Part B [id number]-b14l-9143-w1k5-mt5926d1n4a5 ANSI-Not a Secondary Insurance 7omk0209-b571-6749-d1ft-0uu86 68575s2 5faw6138-p867-1748-i9an-8ak1479451i6 ANSI-Commercial 8skt408r-624h-4368-sgro-19ni344uh069 3ikn897w-896m-4701-yqqs-46kh007ht505 ANSI-Medicaid [id number]-myak-[id number] ANSI-Commercial 7u33gx42-0wl1-8c6y-5189-u7l795b4gm0u 7k13lh31-3ey2-5e0m-4444-c8x202p3qw8q ANSI-Commercial 4kq531r4-pa5y-5crh-22c3-03zk43q82550 5gf804n1-oo9e-6jcq-55m6-37ec73r87579 ANSI-Medicaid [id number]-[id number] ANSI-Medicare Part B [id number] ANSI-Medicaid [id number] ANSI-Medicare Part B [id number]-6882-4id9-2p4tgn368x8d ANSI-Commercial 65jw4934-4122-107b-mvgf-0lc6099ee2u8 92sw4439-5800-658y-ouaa-4im2812ht5r1 ANSI-Commercial 340aq830-723w-7e5x-7k45-z024r1y42767 948fp051-135e-1h1u-1z99-k317f1w24057 ANSI-Not a Secondary Insurance f3oa4sn8-0639-4294-11x2-g08cz [id number] v4vs0av6-5893-5032-95q4-u01ehb715560 ANSI-Medicaid [id number] ANSI-Commercial w4n85323-y14x-9989-r66z-95y422906yt0 q9x83134-q04c-5560-b36m-19p398376ak3 ANSI-Not a Secondary Insurance x1e87qom-kvpo-3293-l07g-1566c dc33a75 z9a23wyo-pjvs-1466-g69h-1816ush88b66 ANSI-Medicaid [id number] kc6b1dk5-5q76-55p0-9tv2-4501q1iyq0u0 ANSI-Medicare Part B [id number] s2hzz19i-12m8-8puk-7vi7-7ww2b2unl5od ANSI-Commercial xy36z258-i2qw-3l4v-909r-4jmljo1719cd nd51s835-w5gb-8u5b-262a-6avwfe1225rl ANSI-Commercial 8192qozr-o858-634cr805-875z-nwn2-0370y5770419 2844gtys-f747-516mq774-708s-rby0-0068u6459244 ANSI-Commercial 4qusuvli-72oi-7t553i86-9006-41s9go01rs6z 2cgppmzo-84vn-7g519f55-9953-57y0yt91xw4y ANSI-Medicaid [id number] b953pds3-iuh9-1609-bb93-568enj30t34i ANSI-Medicaid [id number] 2z4fds03-5299-9170-0j8f-1d09cf634nb0 ANSI-Not a Secondary Insurance zh8o49ch-91dp-46p1-8355-655g5 1qk02y4 us8s44jf-88qx-65t6-2161-404s86oj28h4 ANSI-Commercial v4378022-3b58-64c1-y8dp-d87y1cp70i6l k7620720-1e83-52d9-t2bh-h07u0ag67u0r ANSI-Medicare Part B [id number]-c617-6x79-mw2y-y9n54tk75o80 ANSI-Commercial h8308y3e-3170-3pv4-4867-3p1y46za4ihv e5455l8r-8725-7ky9-4269-3i3q27oq6brr ANSI-Medicaid [id number] 54597qze-7h69-10c2-c851-2jl471zgeql4 ANSI-Commercial 7i36wb67-19s6-3144-b80z-w94r9ao4355i 3a03ut37-98i2-1735-g92g-q89j7nh8047n ANSI-Medicare Part B [id number] [id number]-f76h-[id number] ANSI-Commercial 9r91f050-457y-1if8-qcom-603i8g9km35e 5t46v403-895x-2ls5-rtby-304e8s6fy05c ANSI-Medicaid [id number]-33mm-1539-386821k1ylo0 ANSI-Commercial 5978k226-964w-208d-o43t-3cb3u52ri7eg 3556h049-745b-907y-t24t-2ix4a88ga3iw [facility] [id number]-[id number] ANSI-Commercial gh2k8105-s39f-5egm-n278-rb33v88gjtw9 jr2k2321-y22f-2lzu-r469-od48r86upky8 ANSI-Medicare Part B [id number]-l969-[id number] [facility] [id number] 605sb003-3915-0ymg-mj64-[id number] ANSI-Commercial -2348-3o0u-118j-2y5uzjdq63b3 -7406-2e0u-853y-2q6fsghx08w8 ANSI-Medicaid [id number] [id number]-4455-9o2m-8s36s4l28a06 ANSI-Commercial 24dn6h62-l811-18q9-sd51-0jh3hnqx7225 72kv6w55-i261-29a7-kx60-6qi2mjpr1215 ANSI-Commercial f653l9q7-gj7x-7fah-vd64-ukx7t369qt42 t313o3t8-lr3o-1wmn-ky95-jqa3r543jj17 ANSI-Medicare Part B [id number] 876x6r9g-b867-8e93-2h2d-8ct0lm9hhcc3 ANSI-Commercial 4o9gs2m4-23e0-652p-8c40-3r805g1qz8e5 9k6lo2j5-73n5-306y-6l83-1t757s0dm1i2 ANSI-Commercial k914w08v-ws74-0010-h162-5kq223783m66 z095n34k-ae82-8381-t872-9do289480z86 ANSI-Commercial 88aqa1t3-8ah2-13y0-h4w7-64f27825423e 24ien1a1-9av1-32p6-t0e3-88w27269937p ANSI-Medicaid [id number]-8n5v-936o-[id number] t37hhb3t-3a4a-156m-3428-3ci147o2x71q ANSI-Medicaid [id number]-[id number] Medicaid [facility] Part B [id number] 80.0 Self [id number] Medicare Part B Medicare Primary [id number] Self [id number] ANSI-Medicare Part B [id number]-8g29-37sc-16b4iv7yj4a0 ANSI-Commercial az7b7i5c-094q-2md2-cu8v-w5m9v65c8117 as7d1z1b-912e-2lh2-ie8r-e7r5d65r6191 ANSI-Medicaid [id number] 6b3nl05w-1b65-6mr2-0s83-75to2512y2n7 ANSI-Commercial y917321u-f479-5401-92d9- a827920o-u375-8145-86o3-swhqlduxn363 ANSI-Medicaid [id number]-f93kj8o5233m ANSI-Commercial 0rjs0n4h-44y4-5c3n-7j10-9zerr57g4i5k 8nva1d9l-46p9-5h9n-4u47-7nzxj63c7a1z ANSI-Commercial 42344h8v-0u70-6821-g354-ar6r8imtu0z5 01365d1b-1j30-5229-a623-mx4c2broo3w1 [facility]-Medicaid [id number]-qi1r-b6s1e8s68je3 ANSI-Medicare Part B [id number]-6vr7-[id number] [facility]-Medicaid [id number]-[id number] ANSI-Commercial 4rh8t786-tdqj-0cn7-qv5h-s8g5431j5mzt 6ta7c597-uxmc-4go6-li5w-g8g8307c5vkl ANSI-Commercial 8q2c4480-4t84-9007-6lsq-rv561379v1v3 7z3a6766-2n66-2559-4qvb-fk651463l3j8 ANSI-Medicaid [id number]-[id number]-[id number] j84rl08e-7152-6fvf-azol-d993w981l6x4 ANSI-Medicaid [id number]-8uyf-867f-[id number] y43cu0rr-6guu-596p-v6g8-64t75k975vp2 ANSI-Commercial zl3f2151-5z0i-3z29-7422-m96vo79187c7 qs7e3511-2w0d-4h26-0419-s68zz26977j7 ANSI-Commercial mj92c002-6hz1-4069-dq2q-x79082888qe9 eo59k566-5hf8-3612-mj1n-t23133129hn0 ANSI-Commercial 7tk6w9w9-13f0-6460-k88l-4tp641d1w31e 3bl6i7d1-79b0-6542-m58s-6oe510j1w82n ANSI-Medicare Part B [id number] ANSI-Medicare Part B [id number] [id number]-0qm3-71ou-262k-[id number] ANSI-Medicaid [id number]-4f29-[id number] 7x46sc3u-mp7n-6r19-[id number] ANSI-Commercial 9859sr02-k182-74b4-z553-14216435d40o 6608wj13-q996-51r9-j215-33318723v96r ANSI-Commercial 31732v1k-90j8-6046-1717-1d8041o20g9s 98654n4i-98m6-9110-5291-5d5080h90e3s ANSI-Medicaid [id number]-[id number] ANSI-Commercial a73nq97z-vx99-6u27-4u39-1a5udj7r4545 m22ci44h-tp27-5o55-8a29-4x8gbd0w1011 ANSI-Commercial 6t4pwf57-3737-083e-9ak7-641s5921q95f 2w8ems39-1238-873k-7na7-811n3847l46x ANSI-Medicaid [id number]-2902-0488-i13o-[id number] ANSI-Medicaid [id number]-[id number]-[id number]-r22k-437n-[id number] ANSI-Commercial 378au9l6-0ed5-2860-q46o-7i708e9457t0 375vt2w2-0lu9-4228-l99e-0e669u4002p9 ANSI-Medicaid [id number]-7630-ut57-02xd5m2ta3w1 ANSI-Commercial q1k1o4li-049j-39xu-8x72-b077444t462c p6h6m3bm-502w-65ba-7p22-y510709s543b ANSI-Commercial z39u2x5p-1936-6hzr-6z9w-81656t6h916j l69m5v6l-6218-9cxr-6y5f-96200f1u061h [facility]-Medicaid [id number]-99m8-09b9-a35l-1ij8tl7m0o36 [facility]-Medicaid [id number] 61i6k8pe-mr2a-5610-o1a3-95r18g03l25s [facility]-Medicaid [id number]-y034-[id number] ANSI-Commercial 6319rkk6-smow-6307-j670-o6w0835yt846 1739zbc3-wltc-6913-v302-b0f1256ky574 ANSI-Commercial dq41368g-1qdr-1h76-v212-n7k26i7632pk ae37335v-7aro-9s99-x672-a2q21f3986so ANSI-Commercial 6b0f4k92-7865-15y8-2482-c9a9s97h1652 0l6y4x55-3049-11u2-3283-q8e8d69a5306 [facility]-Medicaid [id number]-6g5z-[id number] [facility]-Medicaid [id number]-6m4h-8306-srs8-1eay2ce64622 ANSI-Commercial v94utg24-9x65-724j-ijgy-5962p3u80284 l68tpe82-2h56-572r-aswm-3238j3a06009 [facility]-Medicaid [id number]-5c3s-[id number] ANSI-Medicaid [id number]-mc84-675r-9p66-1b3f2z5193j0 ANSI-Commercial ggd7x149-5r4g-4p93-9709-31a569ip61ao ysx0d223-0z2h-9w85-7562-54j353xf22pg ANSI-Commercial rpk3ob14-0937-0q1r-j60y-17ip596698x5 dvs4vm41-0850-5n5b-i57l-69vk672690h7 ANSI-Medicaid [id number]-[id number] d96f462s-c33z-7p67-y060-f88d2e28yr9u ANSI-Commercial 635ji90b-l531-9740-hoa5-7e10wb035495 207yh85k-a571-2297-cju8-0l69hy669474 ANSI-Commercial 5iq119s7-5fao-1029-kpu4-7927330qc8sw 8cr570x7-7vuw-4963-zhh4-3047814yy0bp ANSI-Medicaid [id number]-90re-[id number] 26x3l8o1-0q6p-54fx-[id number] ANSI-Commercial q9632d50-99z0-0zt7-cm91-303fmzy235x7 n8871w53-34q1-7vg3-mv92-548wnha167v7 ANSI-Medicaid [id number]-[id number] 8bd2po9h-2d63-17d4-kv56-mz6n227674p8 ANSI-Commercial 50322j0i-9f05-51zn-2378-7048g0c028t2 00794y0d-8f45-91wa-7175-9486c3d393y2 ANSI-Medicaid [id number]-[id number] 2b16m940-mrz0-39l5-0u40-yu9ezqy80246 ANSI-Medicaid [id number]-903i-60iu-[id number] y3g1vrom-149p-92dm-[id number] ANSI-Commercial 0380q6h5-r164-1777-q4h4-a2a6392qy990 3601l2m3-r136-0086-f5n9-t5x8208dc433 ANSI-Medicaid [id number]-[id number] 8v6cp25l-xj8v-9414-049l-545yi0n962gk ANSI-Commercial 97vq81w6-59kh-249k-zad2-609100w15t5v 00uu01e8-08yp-250n-hmn1-199308o41a9x ANSI-Commercial 6u667k8e-8o53-836c-9r85-48nz658n8mo2 8d823l5y-7v85-417y-2p88-77us584s5ba0 ANSI-Commercial q8o283o0-615h-96zh-u92i-57e5p58a4122 x1d598a3-494k-45eb-m42d-91e9u02n8934 ANSI-Medicaid [id number]-7luf-384t-[id number] 88f630ql-9owr-784k-[id number] ANSI-Medicaid [id number]-j6nv-03i1-wi01-3vap30gd8zbg 54u608x5-w3rz-98b9-ha46-4hif19ej1ril ANSI-Medicaid 1c0g8ngk-7w31-6631-[id number] 7i4s5waj-6b76-8111-jb9a-2329242x94e3 ANSI-Commercial jk0v42i6-8lx2-2y72-8t26-8uxoh45s0335 wg2l07h6-5te6-0n03-0a16-9mvdb85r9509 ANSI-Medicaid 2gzifq1b-[id number] 7npzce6z-1286-2729-f563-r6h129b0j822 ANSI-Commercial 3t67i1q0-3812-2141-97a1-rt3f7582z4z1 4g88c1t4-4099-4545-61f3-ns5e9388a0j6 ANSI-Commercial 9pq1ji8u-7b20-5osv-eye6-a7owa3vs0ets 2yp3nz1n-1e75-9lfj-kjy2-h7rai1sl4ejk ANSI-Medicaid [id number] x3q71480-i1p9-8d6o-668d-682r3dbp9v70 ANSI-Medicaid [id number]-[id number] 19902az8-b834-96s4-7jgl-4i96v5t0yo1d ANSI-Commercial 71zt7lsp-0848-0k0x-7125-04775h99nk8i 85ho3aio-0381-2z2i-8689-91039k64vu4g ANSI-Medicaid [id number]-76ki-08eo-16x8-[id number] ANSI-Commercial 3qbl99ru-qw57-162b-3239-9992935dp73y 5mrg56so-zn58-353n-0735-3631195rv31m ANSI-Commercial 9877d60k-1s71-24mm-6503-18t293e25rh6 7706h55k-5z38-37zo-0735-54m921w62pm2 ANSI-Medicaid [id number]-[id number] 3l5478d1-t77n-1eg6-tu3c-71zc9z610t2a ANSI-Commercial 27v741lp-23a5-56s9-7sky-390197ehbhk8 44i543pp-48d9-18w0-8oub-908073pbeor9 ANSI-Medicaid [id number]-[id number] ANSI-Commercial 71555899-tyci-9t8j-cj81-15k8967vta52 01327581-etli-5q8y-nl13-08r6006zxy99 ANSI-Medicaid [id number]-r37y-87t8-[id number]-s23o-12q6-o7ua-mz586u6hw10t [facility] [id number] SP [id number] [place] [id number] SP [id number] MEDICAID [id number] SP [id number] SELF PAY ONLY [id number] SP [id number] Medicaid Medicaid [id number] Self [id number] [employer] [facility] [employer]CDO [id number] SP [id number] [facility] O [id number] S [id number] [facility] [id number] SP [id number] Community Plan - [facility] Commercial [id number] Self [id number] [facility] Commercial [id number] Self [id number] [facility] [id number] SP [id number] [facility] Commercial [id number] Self [id number] [facility] Commercial [id number] Self 335 [employer] [id number] SP [id number] [facility] [id number] SP [id number] [facility] PPO O [id number] S [id number] [employer] Commercial [id number] Self HMO BLUE [id number] [place] S[employer] TRUST WCB [id number] SP WCB [id number] [employer] [id number] SP [id number] SELF PAY UNAVAILABLE UNAVAILA BLE [facility] (pr) Commercial [id number] Self [facility] [id number] SP [id number] SPECIAL FUNDS P [id number] S SUP [id number] [facility] PPO P [id number] S [id number] [facility] (68) [id number] 1 [id number] [facility] (68) [id number] 1 [id number] [facility] COMM SELF [id number] S [id number] [place] [id number] SP [id number] S [facility] PPO P UNAVAILABLE [id number] S UNAVAILA BLE [facility] MCRHMO [id number] SP [id number] [place]ED[place] [id number] SP [id number] [facility](MCAID) O [id number] S [id number] MEDICAID M [id number] S [id number] MEDICAID [id number] S [id number] [facility] DUAL COMPLET [id number] S [id number] MEDICAID [id number] S [id number] [facility] MEDICARE [id number] S [id number] Managed Care - [facility] P [id number] S [id number] Medicaid S UNAVAILABLE S [place] BLE MEDICAID [id number] SP [id number] ANSI-Commercial [id number] ANSI-Medicaid [id number] ANSI-Medicaid [id number] ANSI-Commercial [id number] ANSI-Medicare Part B [id number] ANSI-Commercial [id number] ANSI-Not a Secondary Insurance [id number] ANSI-Medicaid [id number] ANSI-Medicaid [id number] ANSI-Commercial [id number] ANSI-Commercial [id number] ANSI-Medicare Part B [id number] ANSI-Commercial [id number] ANSI-Not a Secondary Insurance [id number] MEDICARE [id number] SP [id number] ANSI-Medicare Part B [id number] ANSI-Commercial [id number] ANSI-Commercial [id number] ANSI-Medicaid [id number] ANSI-Commercial [id number] ANSI-Not a Secondary Insurance [id number] ANSI-Medicaid [id number] ANSI-Not a Secondary Insurance [id number] ANSI-Medicaid [id number] ANSI-Medicare Part B [id number] ANSI-Commercial [id number] ANSI-Medicaid [id number] ANSI-Commercial [id number] ANSI-Commercial [id number] Problems, Conditions, and Diagnoses Code Display Name Description Problem Type Effective Dates Data Source(s) B35.1 Onychomycosis Onychomycosis Problem 02/24/2021 12:00:00 AM EDT [facility] I87.312 Venous ulcer of lower extrem ity due to chronic peripheral venous hypertension Chronic venous hypertension (idiopathic) with ulcer of left lower extremity Problem 12/10/2020 12:00:00 AM EDT eCW1 ([facility]) T14.8XXA [id number] Deep tissue injury Problem 11/12/2020 12:00: 00 AM EDT eCW1 ([facility]) L97.929 [id number] Non-pressure ulcer of left lower extremit y Problem 11/12/2020 12:00:00 AM EDT eCW1 ([facility]) T86.828 [id number] 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) Problem 10/27/2020 12:00:00 AM EDT eCW1 ([facility]) T81.31XA [id number] Postoperative dehiscence of skin wound, initial encounter Problem 09/23/2020 12:00:00 AM EST eCW1 ([facility]) L89.894 Pressure ulcer of left foot [...] IMAGING GUIDANCE 05/26/2021 12:00:00 AM EDT eCW1 ([facility]) OFFICE OUTPATIENT VISIT 25 MINUTES 05/19/2021 12:00:00 AM EDT [facility] ([facility]) Diabetic Retinal Eye Exam 05/13/2021 12:00:00 AM EDT [facility] ([facility]) FINE NEEDLE ASPIRATION W/O IMAGING GUIDANCE 05/12/2021 12:00:00 AM EDT eCW1 ([facility]) FINE NEEDLE ASPIRATION W/O IMAGING GUIDANCE 04/28/2021 12:00:00 AM EDT eCW1 ([facility]) OFFICE OUTPATIENT VISIT 25 MINUTES 04/27/2021 12:00:00 AM EDT [facility] ([facility], ) DEBRIDEMENT NAIL ANY METHOD 1-5 04/22/2021 12:00:00 AM EDT [facility] ([facility] FINE NEEDLE ASPIRATION W/O IMAGING GUIDANCE 04/07/2021 12:00:00 AM EDT eCW1 ([facility]) Chronic Care Management Services Ea Addl 20 Min 2020 12:00:00 AM EDT [facility] ([facility]) Chronic Care MGMT 20 Mins Clinical Staff Time Per Calendar M ont 04/02/2021 12:00:00 AM EDT [facility] ([facility] ) FINE NEEDLE ASPIRATION W/O IMAGING GUIDANCE 04/02/2021 12:00:00 AM EDT eCW1 ([facility]) FINE NEEDLE ASPIRATION W/O IMAGING GUIDANCE 03/24/2021 12:00:00 AM EDT eCW1 ([facility]) Medication: Silver Nitrate Stick topically 03/24/2021 12:00:00 AM EDT eCW1 ([facility]) FINE NEEDLE ASPIRATION W/O IMAGING GUIDANCE 03/17/2021 12:00:00 AM EDT eCW1 ([facility]) Medication: Silver Nitrate Stick topically 03/17/2021 12:00:00 AM EDT eCW1 ([facility]) FINE NEEDLE ASPIRATION W/O IMAGING GUIDANCE 03/04/2021 12:00:00 AM EDT eCW1 ([facility]) Chronic Care MGMT 20 Mins Clinical Staff Time Per Calendar M ont 02/26/2021 12:00:00 AM EDT [facility] ([facility] ) Chronic Care Management Services Ea Addl 20 Min 2020 12:00:00 AM EDT [facility] ([facility]) FINE NEEDLE ASPIRATION W/O IMAGING GUIDANCE 02/24/2021 12:00:00 AM EDT eCW1 ([facility]) Medication: Silver Nitrate Stick topically 02/17/2021 12:00:00 AM EDT eCW1 ([facility]) FINE NEEDLE ASPIRATION W/O IMAGING GUIDANCE 02/17/2021 12:00:00 AM EDT eCW1 ([facility]) DEBRIDEMENT NAIL ANY METHOD 1-5 02/11/2021 12:00:00 AM EDT [facility] ([facility] FINE NEEDLE ASPIRATION W/O IMAGING GUIDANCE 02/11/2021 12:00:00 AM EDT eCW1 ([facility]) Medication: Silver Nitrate Stick topically 02/11/2021 12:00:00 AM EDT eCW1 ([facility]) Complex Chronic Care MGMT Service Ea Addl 30 Min 02/09 12:00:00 AM EDT [facility] ([facility]) Complex Chronic Care Management SVC 1St 60 Min 021 12:00:00 AM EDT [facility] ([facility]) Medication: Silver Nitrate Stick topically 02/03/2021 12:00:00 AM EDT eCW1 ([facility]) FINE NEEDLE ASPIRATION W/O IMAGING GUIDANCE 02/03/2021 12:00:00 AM EDT eCW1 ([facility]) FINE NEEDLE ASPIRATION W/O IMAGING GUIDANCE 01/28/2021 12:00:00 AM EDT eCW1 ([facility]) FINE NEEDLE ASPIRATION W/O IMAGING GUIDANCE 01/21/2021 12:00:00 AM EDT eCW1 ([facility]) FINE NEEDLE ASPIRATION W/O IMAGING GUIDANCE 01/07/2021 12:00:00 AM EDT eCW1 ([facility]) Medication: Silver Nitrate Stick topically 01/07/2021 12:00:00 AM EDT eCW1 ([facility]) Chronic Care MGMT 20 Mins Clinical Staff Time Per Calendar M ont 01/04/2021 12:00:00 AM EDT [facility] ([facility] ) FINE NEEDLE ASPIRATION W/O IMAGING GUIDANCE 12/31/2020 12:00:00 AM EDT eCW1 ([facility]) Medication: Silver Nitrate Stick topically 12/31/2020 12:00:00 AM EDT eCW1 ([facility]) Med: Cadexomer Iodine gel topical IODOSORB 10gm 2020 12:00:00 AM EDT eCW1 ([facility]) FINE NEEDLE ASPIRATION W/O IMAGING GUIDANCE 12/24/2020 12:00:00 AM EDT eCW1 ([facility]) 12/24/2020 12:00:00 AM EDT e CW1 ([facility]) HBO Protocol 2.0 NESTOR for 90 Minutes without Air Breaks 2020 12:00:00 AM EDT eCW1 ([facility]) Capillary Blood Glucose Pre and Post HBO Treatment 12/21/2020 12:00:00 AM EDT eCW1 ([facility]) Capillary Blood Glucose Pre and Post HBO Treatment 12/18/2020 12:00:00 AM EDT eCW1 ([facility]) FINE NEEDLE ASPIRATION W/O IMAGING GUIDANCE 12/17/2020 12:00:00 AM EDT eCW1 ([facility]) Capillary Blood Glucose Pre and Post HBO Treatment 12/17/2020 12:00:00 AM EDT eCW1 ([facility]) Capillary Blood Glucose Pre and Post HBO Treatment 12/15/2020 12:00:00 AM EDT eCW1 ([facility]) Capillary Blood Glucose Pre and Post HBO Treatment 12/11/2020 12:00:00 AM EDT eCW1 ([facility]) FINE NEEDLE ASPIRATION W/O IMAGING GUIDANCE 12/10/2020 12:00:00 AM EDT eCW1 ([facility]) Medication: Silver Nitrate Stick topically 12/10/2020 12:00:00 AM EDT eCW1 ([facility]) Capillary Blood Glucose Pre and Post HBO Treatment 12/09/2020 12:00:00 AM EDT eCW1 ([facility]) HBO Protocol 2.0 NESTOR for 90 Minutes without Air Breaks 12/08/2020 12:00:00 AM EDT eCW1 ([facility]) HBO Protocol 2.0 NESTOR for 90 Minutes without Air Breaks 12/07/2020 12:00:00 AM EDT eCW1 ([facility]) Capillary Blood Glucose Pre and Post HBO Treatment 12/04/2020 12:00:00 AM EDT eCW1 ([facility]) Capillary Blood Glucose Pre and Post HBO Treatment 12/03/2020 12:00:00 AM EDT eCW1 ([facility]) FINE NEEDLE ASPIRATION W/O IMAGING GUIDANCE 12/03/2020 12:00:00 AM EDT eCW1 ([facility]) Capillary Blood Glucose Pre and Post HBO Treatment 12/02/2020 12:00:00 AM EDT eCW1 ([facility]) Capillary Blood Glucose Pre and Post HBO Treatment 12/01/2020 12:00:00 AM EDT eCW1 ([facility]) Capillary Blood Glucose Pre and Post HBO Treatment 11/30/2020 12:00:00 AM EDT eCW1 ([facility]) Capillary Blood Glucose Pre and Post HBO Treatment 11/27/2020 12:00:00 AM EDT eCW1 ([facility]) OFFICE OUTPATIENT VISIT 25 MINUTES 11/26/2020 12:00:00 AM EDT MEDSARAH ([facility]) FINE NEEDLE ASPIRATION W/O IMAGING GUIDANCE 11/26/2020 12:00:00 AM EDT eCW1 ([facility]) Capillary Blood Glucose Pre and Post HBO Treatment 11/26/2020 12:00:00 AM EDT eCW1 ([facility]) Chronic Care MGMT 20 Mins Clinical Staff Time Per Calendar M ont 11/25/2020 12:00:00 AM EDT LEAH ([facility] ) Chronic Care Management Services Ea Addl 20 Min 2020 12:00:00 AM EDT MEDSARAH ([facility]) Capillary Blood Glucose Pre and Post HBO Treatment 11/25/2020 12:00:00 AM EDT eCW1 ([facility]) Capillary Blood Glucose Pre and Post HBO Treatment 11/24/2020 12:00:00 AM EDT eCW1 ([facility]) Capillary Blood Glucose Pre and Post HBO Treatment 11/23/2020 12:00:00 AM EDT eCW1 ([facility]) Capillary Blood Glucose Pre and Post HBO Treatment 11/20/2020 12:00:00 AM EDT eCW1 ([facility]) Capillary Blood Glucose Pre and Post HBO Treatment 11/19/2020 12:00:00 AM EDT eCW1 ([facility]) FINE NEEDLE ASPIRATION W/O IMAGING GUIDANCE 11/18/2020 12:00:00 AM EDT eCW1 ([facility]) Capillary Blood Glucose Pre and Post HBO Treatment 11/18/2020 12:00:00 AM EDT eCW1 ([facility]) Capillary Blood Glucose Pre and Post HBO Treatment 11/17/2020 12:00:00 AM EDT eCW1 ([facility]) Capillary Blood Glucose Pre and Post HBO Treatment 11/16/2020 12:00:00 AM EDT eCW1 ([facility]) Capillary Blood Glucose Pre and Post HBO Treatment 11/13/2020 12:00:00 AM EDT eCW1 ([facility]) FINE NEEDLE ASPIRATION W/O IMAGING GUIDANCE 11/12/2020 12:00:00 AM EDT eCW1 ([facility]) Capillary Blood Glucose Pre and Post HBO Treatment 11/12/2020 12:00:00 AM EDT eCW1 ([facility]) Capillary Blood Glucose Pre and Post HBO Treatment 11/11/2020 12:00:00 AM EDT eCW1 ([facility]) Capillary Blood Glucose Pre and Post HBO Treatment 11/10/2020 12:00:00 AM EDT eCW1 ([facility]) HBO Protocol 2.0 NESTOR for 90 Minutes without Air Breaks 11/09/2020 12:00:00 AM EDT eCW1 ([facility]) Capillary Blood Glucose Pre and Post HBO Treatment 11/06/2020 12:00:00 AM EDT eCW1 ([facility]) FINE NEEDLE ASPIRATION W/O IMAGING GUIDANCE 11/05/2020 12:00:00 AM EDT eCW1 ([facility]) Capillary Blood Glucose Pre and Post HBO Treatment 11/05/2020 12:00:00 AM EDT eCW1 ([facility]) Capillary Blood Glucose Pre and Post HBO Treatment 11/04/2020 12:00:00 AM EDT eCW1 ([facility]) Capillary Blood Glucose Pre and Post HBO Treatment 11/03/2020 12:00:00 AM EDT eCW1 ([facility]) Capillary Blood Glucose Pre and Post HBO Treatment 11/02/2020 12:00:00 AM EDT eCW1 ([facility]) Capillary Blood Glucose Pre and Post HBO Treatment 10/30/2020 12:00:00 AM EDT eCW1 ([facility]) Medication: Silver Nitrate Stick topically 10/29/2020 12:00:00 AM EDT eCW1 ([facility]) FINE NEEDLE ASPIRATION W/O IMAGING GUIDANCE 10/29/2020 12:00:00 AM EDT eCW1 ([facility]) Capillary Blood Glucose Pre and Post HBO Treatment 10/27/2020 12:00:00 AM EDT eCW1 ([facility]) Medication: 4% Lidocaine topical cream (Anecream) 30 gm 10/21/2020 12:00:00 AM EST eCW1 ([facility]) Medication: Silver Nitrate Stick topically 10/21/2020 12:00:00 AM EST eCW1 ([facility]) FINE NEEDLE ASPIRATION W/O IMAGING GUIDANCE 10/14/2020 12:00:00 AM EST eCW1 ([facility]) FINE NEEDLE ASPIRATION W/O IMAGING GUIDANCE 10/07/2020 12:00:00 AM EST eCW1 ([facility]) Medication: Silver Nitrate Stick topically 10/07/2020 12:00:00 AM EST eCW1 ([facility]) FINE NEEDLE ASPIRATION W/O IMAGING GUIDANCE 09/23/2020 12:00:00 AM EST eCW1 ([facility]) Amputation Foot Transmetatarsal 09/16/2020 12:00:00 AM EST MEDENT ([facility] OFFICE OUTPATIENT VISIT 15 MINUTES 09/11/2020 12:00:00 AM EST MEDENT ([facility] FINE NEEDLE ASPIRATION W/O IMAGING GUIDANCE 08/31/2020 12:00:00 AM EST eCW1 ([facility]) RADEX FOOT COMPLETE MINIMUM 3 VIEWS 08/21/2020 12:00:0 0 AM EST MEDENT ([facility] FINE NEEDLE ASPIRATION W/O IMAGING GUIDANCE 08/19/2020 12:00:00 AM EST eCW1 ([facility]) FINE NEEDLE ASPIRATION W/O IMAGING GUIDANCE 08/11/2020 12:00:00 AM EST eCW1 ([facility]) FINE NEEDLE ASPIRATION W/O IMAGING GUIDANCE 08/05/2020 12:00:00 AM EST eCW1 ([facility]) FINE NEEDLE ASPIRATION W/O IMAGING GUIDANCE 07/28/2020 12:00:00 AM EST eCW1 ([facility]) FINE NEEDLE ASPIRATION W/O IMAGING GUIDANCE 07/20/2020 12:00:00 AM EST eCW1 ([facility]) FINE NEEDLE ASPIRATION W/O IMAGING GUIDANCE 06/22/2020 12:00:00 AM EST eCW1 ([facility]) FINE NEEDLE ASPIRATION W/O IMAGING GUIDANCE 06/03/2020 12:00:00 AM EDT eCW1 ([facility]) ELECTROENCEPHALOGRAM W/REC AWAKE&ASLEEP 05/28/2020 12: 00:00 AM EDT MEDENT ([facility]) ELECTROENCEPHALOGRAM W/REC AWAKE&ASLEEP 05/28/2020 12: 00:00 AM EDT MEDENT ([facility]) FINE NEEDLE ASPIRATION W/O IMAGING GUIDANCE 05/20/2020 12:00:00 AM EDT eCW1 ([facility]) Magnetic Resonance Angiogtaphy Head W/O Contrast Material(S) 04/25/2020 12:00:00 AM EDT MEDENT ([facility]) Magnetic Resonance Angiogtaphy Head W/O Contrast Material(S) 04/25/2020 12:00:00 AM EDT MEDENT ([facility]) Magnetic Resonance Angiography Neck W/O Contrast Materials 04/25/2020 12:00:00 AM EDT MEDENT ([facility]) Magnetic Resonance Angiography Neck W/O Contrast Materials 04/25/2020 12:00:00 AM EDT MEDENT ([facility]) MRI BRAIN BRAIN STEM W/O CONTRAST MATERIAL 04/25/2020 12:00:00 AM EDT MEDENT ([facility] MRI BRAIN BRAIN STEM W/O CONTRAST MATERIAL 04/25/2020 12:00:00 AM EDT MEDENT ([facility] ) Mammogram 04/23/2020 12:00:00 AM EDT M EDENT ([facility]) Results ID Date Data Source [id number] 05/19/2021 11:41:00 AM EDT MEDENT ([facility]) Name Value Range Interpretation Code Description Data Kaya rce(s) Supporting Document(s) Hepatitis C virus Ab [Units/volume] in Serum by Immunoassay 0.1 INDEX MEDENT ([facility]) Negative Not infected with HCV, unless recent infection is suspected or other evidence exists to indicate HCV infection. Ferritin [Mass/volume] in Serum or Plasma 58 ng/mL 8-252 MEDENT ([facility]) ID Date Data Source [id number] 05/19/2021 11:41:00 AM EDT MEDENT ([facility]) Name Value Range Interpretation Code Description Data Kaya rce(s) Supporting Document(s) Iron (Fe) 66 ug/dL 50-170 [facility] ([facility]) Total Iron Binding Capacity 354 ug/dL 250-450 [place] DENT ([facility]) Percent Saturation 18.6 % 13.2-45.0 MEDENT ([facility]) ID Date Data Source [id number] 05/19/2021 11:39:00 AM EDT [facility] Name Value Range Interpretation Code Description Data Kaya rce(s) Supporting Document(s) Microalbumin Urine 6.1 mg/L 1.3-20.0 MEDENT ([facility]) Microalb/Creat Ratio 30.0 ug/mg 0.0-30.0 MEDENT ( [facility]) Urine Creatinine 20.3 mg/dL 30.0-125.0 MEDENT ([facility]) ID Date Data Source [id number] 05/19/2021 11:39:00 AM EDT MEDENT ([facility]) Name Value Range Interpretation Code Description Data Kaya rce(s) Supporting Document(s) Cholesterol [Mass/volume] in Serum or Plasma 117 mg/dL 131-200 [facility] ([facility]) Cholesterol in LDL [Mass/volume] in Serum or Plasma by calcu lation 49 CALC 50-159 [facility] ([facility]) Cholesterol in HDL [Mass/volume] in Serum or Plasma 50 mg/dL 35-60 [facility] ([facility]) Triglyceride [Mass/volume] in Serum or Plasma 88 mg/dL 30-150 [facility] ([facility]) ID Date Data Source [id number] 05/19/2021 11:39:00 AM EDT MEDENT ([facility]) Name Value Range Interpretation Code Description Data Kaya rce(s) Supporting Document(s) Glucose [Mass/volume] in Serum or Plasma 93 mg/dL 74-99 MEDENT ([facility]) 100-125 mg/dL PRE-DIABETES/FASTING >126 mg/dL DIABETES/FASTING Urea nitrogen [Mass/volume] in Serum or Plasma 19 mg/dL 7-18 MED[facility] ([facility]) Creatinine 1.2 mg/dL 0.6-1.3 [facility]) Chloride [Moles/volume] in Serum or Plasma 104 meq/L 98-107 [facility] ([facility]) Potassium [Moles/volume] in Serum or Plasma 4.6 meq/L 3.5-5.1 [facility] ([facility]) Sodium [Moles/volume] in Serum or Plasma 139 meq/L 136-145 [facility] ([facility]) Carbon dioxide, total [Moles/volume] in Serum or Plasma 25 meq/L 21 -32 [facility] ([facility]) Calcium [Mass/volume] in Serum or Plasma 8.8 mg/dL 8.5-10.1 [facility] ([facility]) Aspartate aminotransferase [Enzymatic activity/volume] in Serum or Plasma 19 U/L 15-37 MED[facility] ([facility] ) Alkaline phosphatase isoenzyme [Units/volume] in Serum or Pl asma 175 mg/dL 46-116 MED[facility] ([facility]) NOTE: alk phos,t.bili verified Total Bilirubin 1.6 mg/dL 0.2-1.0 [facility] ([facility]) Proteinase 3 Ab [Units/volume] in Serum 8.0 g/dL 6.4-8.2 [facility] ([facility]) A/G Ratio 0.82 CALC 1.00-1.90 [facility] ([facility]) Albumin [Mass/volume] in Serum or Plasma 3.6 g/dL 3.4-5.0 [facility] ([facility]) Alanine aminotransferase [Enzymatic activity/volume] in Seru m or Plasma 16 U/L 12-78 [facility] Glomerular filtration rate/1.73 sq M pre dicted among blacks [Volume Rate/Area] in Serum or Plasma by Creatinine-based formula (MDRD) 54 mL/min [facility] <content>CHRONIC KIDNEY DISEASE STAGING PER NKF</content>
<content></content>
<content>STAGE I & II GFR >= 60 NORMAL TO MILDLY DECREASED</content>
<content>STAGE III GFR 30-59 MODERATELY DECREASED</content>
<content>STAGE IV GFR 15-29 SEVERELY DECREASED</content>
<content>STAGE V GFR <15 VERY LITTLE GFR LEFT</content>
<content>ESRD GFR <15 ON AUTOMOTIVE METALSMITH</content>
<content></content> Glomerular filtration rate/1.73 sq M pre dicted among non-blacks [Volume Rate/Area] in Serum or Plasma by Creatinine-based formula (MDRD) 45 mL/min [facility] ID Date Data Source [id number] 05/19/2021 11:39:00 AM EDT MEDENT [facility] Name Value Range Interpretation Code Description Data Kaya rce(s) Supporting Document(s) Hemoglobin A1c/Hemoglobin.total in Blood 7.0 % [facility] Lab Result Notes: Pre-Diabetes 5.7 - 6.4 % Diabetes = or > 6.5% Glucose mean value [Mass/volume] in Blood Estimated fr om glycated hemoglobin 154 mg/dL 60-110 MEDENT ([facility] ) ID Date Data Source [id number] 05/19/2021 11:39:00 AM EDT MEDENT ([facility]) Name Value Range Interpretation Code Description Data Kaya rce(s) Supporting Document(s) Leukocytes [#/volume] in Blood by Automated count 7.4 x10*3/UL 4.1-10 .9 [facility] Erythrocytes [#/volume] in Blood by Automated count 4.41 x10*6/UL 4.2 0-6.30 [facility] Hemoglobin [Mass/volume] in Blood 13.1 g/dL 12.0-18.0 [facility] Hematocrit [Volume Fraction] of Blood by Automated count 39.9 % 3 7.0-51.0 [facility] MCHC 32.8 g/dL 31.0-38.0 MEDENT ([facility]) MCH 29.7 pg 26.0-32.0 MEDENT ([facility]) MCV 90.5 fL 80.0-97.0 MEDENT ([facility]) Platelets [#/volume] in Blood by Automated count 273 x10*3/UL 140-440 [facility] Lymph % 15.2 % 10.0-58.5 MEDENT ([facility]) MPV 8.0 FL 7.8-11.0 MEDENT ([facility]) Erythrocyte distribution width [Ratio] by Automated count 13.7 % 11.6-13.7 MEDENT ([facility]) Mid % 4.0 % 1.7-9.3 MEDENT ([facility]) Lymph # 1.1 x10*3/UL 0.6-4.1 [facility] ([facility]) Neut % 80.8 % 37.0-92.0 [facility] ([facility]) Mid # 0.3 x10*3/UL 0.1-0.6 [facility] ([facility]) Neut # 6.0 x10*3/UL 2.0-7.8 [facility] ([facility]) ID Date Data Source [id number] 05/19/2021 11:39:00 AM EDT [facility] ([facility]) Name Value Range Interpretation Code Description Data Kaya rce(s) Supporting Document(s) Hemoglobin A1c/Hemoglobin.total in Blood Laboratory test result [facility] ([facility]) ID Date Data Source [id number] 12/01/2020 12:44:00 PM EDT [facility]) Name Value Range Interpretation Code Description Data Kaya rce(s) Supporting Document(s) INR in Platelet poor plasma by Coagulation assay 1.2 [facility] ([facility]) ID Date Data Source [id number] 11/26/2020 02:51:00 PM EDT [facility]) Name Value Range Interpretation Code Description Data Kaya rce(s) Supporting Document(s) INR in Platelet poor plasma by Coagulation assay 2.6 [facility] ([facility]) ID Date Data Source [id number] 11/26/2020 02:31:00 PM EDT [facility] ([facility]) Name Value Range Interpretation Code Description Data Kaya rce(s) Supporting Document(s) Ferritin [Mass/volume] in Serum or Plasma 52 ng/mL 8-252 [facility] ([facility]) ID Date Data Source [id number] 11/26/2020 02:31:00 PM EDT MEDENT ([facility]) Name Value Range Interpretation Code Description Data Kaya rce(s) Supporting Document(s) Total Iron Binding Capacity 350 ug/dL 250-450 [facility] ([facility]) Iron (Fe) 64 ug/dL 50-170 [facility]) Percent Saturation 18.3 % 13.2-45.0 [facility] ([facility]) ID Date Data Source [id number] 11/26/2020 02:30:00 PM EDT MEDENT ([facility]) Name Value Range Interpretation Code Description Data Kaya rce(s) Supporting Document(s) Glucose [Mass/volume] in Serum or Plasma 255 mg/dL 74-99 [facility] ([facility]) 100-125 mg/dL PRE-DIABETES/FASTING >126 mg/dL DIABETES/FASTING Urea nitrogen [Mass/volume] in Serum or Plasma 25 mg/dL 7-18 [facility] ([facility]) Creatinine 1.5 mg/dL 0.6-1.3 [facility] ([facility]) Sodium [Moles/volume] in Serum or Plasma 134 meq/L 136-145 [facility] ([facility]) Potassium [Moles/volume] in Serum or Plasma 5.1 meq/L 3.5-5.1 [facility] ([facility]) Chloride [Moles/volume] in Serum or Plasma 101 meq/L 98-107 [facility] ([facility]) Calcium [Mass/volume] in Serum or Plasma 8.9 mg/dL 8.5-10.1 [facility] ([facility]) Glomerular filtration rate/1.73 sq M pre dicted among non-blacks [Volume Rate/Area] in Serum or Plasma by Creatinine-based formula (MDRD) 35 mL/min [facility] ([facility]) Carbon dioxide, total [Moles/volume] in Serum or Plasma 28 meq/L 21 -32 [facility] ([facility]) Glomerular filtration rate/1.73 sq M pre dicted among blacks [Volume Rate/Area] in Serum or Plasma by Creatinine-based formula (MDRD) 42 mL/min [facility] ([facility]) <content>CHRONIC KIDNEY DISEASE STAGING PER NKF</content>
<content></content>
<content>STAGE I & II GFR >= 60 NORMAL TO MILDLY DECREASED</content>
<content>STAGE III GFR 30-59 MODERATELY DECREASED</content>
<content>STAGE IV GFR 15-29 SEVERELY DECREASED</content>
<content>STAGE V GFR <15 VERY LITTLE GFR LEFT</content>
<content>ESRD GFR <15 ON AUTOMOTIVE METALSMITH</content>
<content></content> ID Date Data Source [id number] 11/26/2020 02:30:00 PM EDT MEDENT ([facility]) Name Value Range Interpretation Code Description Data Kaya rce(s) Supporting Document(s) Glucose mean value [Mass/volume] in Blood Estimated fr om glycated hemoglobin 166 mg/dL 60-110 [facility] Hemoglobin A1c/Hemoglobin.total in Blood 7.4 % [facility] Lab Result Notes: Pre-Diabetes 5.7 - 6.4 % Diabetes = or > 6.5% ID Date Data Source [id number] 11/26/2020 02:30:00 PM EDT MED[facility] Name Value Range Interpretation Code Description Data Kaya rce(s) Supporting Document(s) Leukocytes [#/volume] in Blood by Automated count 6.7 x10*3/UL 4.1-10 .9 [facility] Hemoglobin [Mass/volume] in Blood 12.3 g/dL 12.0-18.0 [facility] Erythrocytes [#/volume] in Blood by Automated count 4.12 x10*6/UL 4.2 0-6.30 [facility] MCH 29.8 pg 26.0-32.0 [facility] ([facility]) MCV 91.1 fL 80.0-97.0 [facility] ([facility]) Hematocrit [Volume Fraction] of Blood by Automated count 37.6 % 3 7.0-51.0 [facility] Erythrocyte distribution width [Ratio] by Automated count 13.5 % 11.6-13.7 [facility] MPV 8.3 FL 7.8-11.0 [facility] ([facility]) Platelets [#/volume] in Blood by Automated count 326 x10*3/UL 140-440 [facility] MCHC 32.6 g/dL 31.0-38.0 [facility] ([facility]) Neut % 83.6 % 37.0-92.0 [facility] ([facility]) Mid % 3.2 % 1.7-9.3 [facility] ([facility]) Lymph % 13.2 % 10.0-58.5 [facility] ([facility]) Mid # 0.2 x10*3/UL 0.1-0.6 [facility] ([facility]) Neut # 5.6 x10*3/UL 2.0-7.8 [facility] ([facility]) Lymph # 0.9 x10*3/UL 0.6-4.1 [facility] ([facility]) ID Date Data Source [id number] 10/29/2020 02:33:00 PM EDT MEDENT ([facility]) Name Value Range Interpretation Code Description Data Kaya rce(s) Supporting Document(s) INR in Platelet poor plasma by Coagulation assay 2.5 [facility] ([facility]) ID Date Data Source [id number] 10/22/2020 02:34:00 PM EST MED[facility] ([facility]) Name Value Range Interpretation Code Description Data Kaya rce(s) Supporting Document(s) INR in Platelet poor plasma by Coagulation assay 4.2 [facility] ([facility]) ID Date Data Source [id number] 09/24/2020 01:40:00 PM EST MED[facility] ([facility]) Name Value Range Interpretation Code Description Data Kaya rce(s) Supporting Document(s) INR in Platelet poor plasma by Coagulation assay 1.9 [facility] ([facility]) ID Date Data Source [id number] 09/17/2020 11:33:00 AM EST [facility] ([facility] Name Value Range Interpretation Code Description Data Kaya rce(s) Supporting Document(s) Glucose [Mass/volume] in Capillary blood by Glucometer 274 mg/dL 80-115 Above high normal [facility] ([facility] ID Date Data Source [id number] 09/17/2020 11:33:00 AM EST [facility] ([facility]) Name Value Range Interpretation Code Description Data Kaya rce(s) Supporting Document(s) Bedside Glucose 274 mg/dL 80-115 [facility] ([facility]) ID Date Data Source [id number] 09/17/2020 05:59:00 AM EST [facility] ([facility] Name Value Range Interpretation Code Description Data Kaya rce(s) Supporting Document(s) Glucose [Mass/volume] in Capillary blood by Glucometer 213 mg/dL 80-115 Above high normal [facility] ([facility] ID Date Data Source [id number] 09/17/2020 05:59:00 AM EST [facility] ([facility]) Name Value Range Interpretation Code Description Data Kaya rce(s) Supporting Document(s) Bedside Glucose 213 mg/dL 80-115 [facility] ([facility]) ID Date Data Source [id number] 09/16/2020 08:32:00 PM EST [facility] ([facility] Name Value Range Interpretation Code Description Data Kaya rce(s) Supporting Document(s) Glucose [Mass/volume] in Capillary blood by Glucometer 249 mg/dL 80-115 Above high normal [facility] ([facility] ID Date Data Source [id number] 09/16/2020 08:32:00 PM EST [facility] ([facility]) Name Value Range Interpretation Code Description Data Kaya rce(s) Supporting Document(s) Bedside Glucose 249 mg/dL 80-115 [facility] ([facility]) ID Date Data Source [id number] 09/16/2020 04:47:00 PM EST [facility] ([facility] Name Value Range Interpretation Code Description Data Kaya rce(s) Supporting Document(s) Glucose [Mass/volume] in Capillary blood by Glucometer 153 mg/dL 80-115 Above high normal [facility] ([facility] ID Date Data Source [id number] 09/16/2020 04:47:00 PM EST [facility] ([facility]) Name Value Range Interpretation Code Description Data Kaya rce(s) Supporting Document(s) Bedside Glucose 153 mg/dL 80-115 [facility] ([facility]) ID Date Data Source [id number] 09/16/2020 02:24:00 PM EST [facility] ([facility] Name Value Range Interpretation Code Description Data Kaya rce(s) Supporting Document(s) Glucose [Mass/volume] in Capillary blood by Glucometer 135 mg/dL 80-115 Above high normal [facility] ([facility] ID Date Data Source [id number] 09/16/2020 02:24:00 PM EST [facility] ([facility]) Name Value Range Interpretation Code Description Data Kaya rce(s) Supporting Document(s) Bedside Glucose 135 mg/dL 80-115 [facility] ([facility]) ID Date Data Source [id number] 09/16/2020 01:47:00 PM EST [facility] ([facility] Name Value Range Interpretation Code Description Data [facility] rce(s) Supporting Document(s) Surgical pathology study Laboratory [...] margins. The soft tissue margin appears viable. [employer] sections of the ulcerated skin and soft with underlying bone are submitted in two blocks after decalcification. -SV 09/17/2020 - 1329 Signed MARY JO WEISS MD 09/18/2020 1409 ID Date Data Source [id number] 09/16/2020 12:01:00 PM EST [facility] ([facility] Name Value Range Interpretation Code Description Data Kaya rce(s) Supporting Document(s) Glucose [Mass/volume] in Capillary blood by Glucometer 142 mg/dL 80-115 Above high normal [facility] ([facility] ID Date Data Source [id number] 09/16/2020 12:01:00 PM EST [facility] ([facility]) Name Value Range Interpretation Code Description Data Kaya rce(s) Supporting Document(s) Bedside Glucose 142 mg/dL 80-115 [facility] ([facility]) ID Date Data Source [id number] 09/16/2020 11:11:00 AM EST [facility] ([facility] [...] MYOCARDIAL INFARCTION 2.5-3.5 ID Date Data Source [id number] 09/16/2020 11:11:00 AM EST [facility] ([facility]) Name Value Range Interpretation Code Description Data Kaya rce(s) Supporting Document(s) Prothrombin Time 13.9 s 12.5-14.3 [facility] ([facility]) Inr 1.05 [facility] ([place] [facility]) THERAPUTIC HUMAN INR VALUES INDICATIONS NORMAL RANGES PROPHYLAXIS/TREATMENT OF: VENOUS THROMBOSIS 2.0-3.0 PULMONARY EMBOLISM 2.0-3.0 PREVENTION OF SYSTEMIC EMBOLISM FROM: TISSUE HEART VALVES 2.0-3.0 ACUTE MYOCARDIAL INFARCTION 2.0-3.0 VALVULAR HEART DISEASE 2.0-3.0 ATRIAL FIBRILLATION 2.0-3.0 MECHANICAL VALVES(HIGH RISK) 2.5-3.5 RECURRENT MYOCARDIAL INFARCTION 2.5-3.5 ID Date Data Source [id number] 09/11/2020 12:00:00 PM EST [facility] Name Value Range Interpretation Code Description Data Kaya rce(s) Supporting Document(s) SARS coronavirus 2 RNA Not Detected [facility] [place] This lab was ordered by [facility] and reported by [facility]. ID Date Data Source [id number] 09/09/2020 07:15:00 AM EST [facility] ([facility]) Name Value Range Interpretation Code Description Data Kaya rce(s) Supporting Document(s) White Blood Count 6.3 10 4.0-10.0 [facility] ([facility]) Red Blood Count 3.84 10 4.00-5.40 [facility] ([facility]) Hemoglobin 11.3 g/dL 12.0-15.5 [facility] ([place] [facility]) Hematocrit 37.7 % 36.0-47.0 [facility] ([facility]) Mean Corpuscular Volume 98.2 fl 80.0-96.0 [facility] ([facility]) Mean Corpuscular HGB Conc 30.0 g/dL 32.0-36.5 [facility] NT ([facility]) Mean Corpuscular Hemoglobin 29.4 pg 27.0-33.0 CO [facility] ([facility]) Platelet Count, Automated 328 10 150-450 [facility] ([facility]) Red Cell Distribution Width 15.1 % 11.5-14.5 ME [facility] ([facility]) Nucleated Red Blood Cell % 0.0 % 0-0 [facility] ([facility]) ID Date Data Source [id number] 09/09/2020 07:15:00 AM EST [facility] ([facility]) Name Value Range Interpretation Code Description Data Kaya rce(s) Supporting Document(s) Prothrombin Time 19.9 s 12.5-14.3 [facility] ([facility]) Inr 1.65 [facility] ([place] [facility]) THERAPUTIC HUMAN INR VALUES INDICATIONS NORMAL RANGES PROPHYLAXIS/TREATMENT OF: VENOUS THROMBOSIS 2.0-3.0 PULMONARY EMBOLISM 2.0-3.0 PREVENTION OF SYSTEMIC EMBOLISM FROM: TISSUE HEART VALVES 2.0-3.0 ACUTE MYOCARDIAL INFARCTION 2.0-3.0 VALVULAR HEART DISEASE 2.0-3.0 ATRIAL FIBRILLATION 2.0-3.0 MECHANICAL VALVES(HIGH RISK) 2.5-3.5 RECURRENT MYOCARDIAL INFARCTION 2.5-3.5 ID Date Data Source [id number] 09/09/2020 07:15:00 AM EST [facility] ([facility]) Name Value Range Interpretation Code Description Data Kaya rce(s) Supporting Document(s) Glucose, Fasting 108 mg/dL 70-100 [facility] ([facility]) Blood Urea Nitrogen 27 mg/dL 7-18 [facility] ([facility]) Creatinine For GFR 1.47 mg/dL 0.55-1.30 [facility] ([facility]) Glomerular Filtration Rate 37.9 [facility] ([facility]) <content>Units are mL/min/1.73 m2</content>
<content></content>
<content>Chronic Kidney Disease Staging per NKF:</content>
<content></content>
<content>Stage I & II GFR >=60 Normal to Mildly Decreased</content>
<content>Stage III GFR 30- 59 Moderately Decreased</content>
<content>Stage IV GFR 15-29 Severely Decreased</content>
<content>Stage V GFR <15 Very Little GFR Left</content>
<content>ESRD GFR <15 on AUTOMOTIVE METALSMITH</content>
<content></content> Sodium Level 137 meq/L 136-145 [facility] ([facility]) Potassium Serum 4.8 meq/L 3.5-5.1 [facility] ([facility]) Chloride Level 104 meq/L 98-107 [facility] ([facility]) Carbon Dioxide Level 28 meq/L 21-32 [facility] ([facility]) Anion Gap 5 meq/L 8-16 [facility] ([place] [facility]) Calcium Level 8.6 mg/dL 8.8-10.2 [facility] ([facility]) ID Date Data Source [id number] 09/03/2020 11:25:00 AM EST [facility] ([facility]) Name Value Range Interpretation Code Description Data Kaya rce(s) Supporting Document(s) Prothrombin Time 22.0 s 12.5-14.3 [facility] ([facility]) Inr 1.88 [facility] THERAPUTIC HUMAN INR VALUES INDICATIONS NORMAL RANGES PROPHYLAXIS/TREATMENT OF: VENOUS THROMBOSIS 2.0-3.0 PULMONARY EMBOLISM 2.0-3.0 PREVENTION OF SYSTEMIC EMBOLISM FROM: TISSUE HEART VALVES 2.0-3.0 ACUTE MYOCARDIAL INFARCTION 2.0-3.0 VALVULAR HEART DISEASE 2.0-3.0 ATRIAL FIBRILLATION 2.0-3.0 MECHANICAL VALVES(HIGH RISK) 2.5-3.5 RECURRENT MYOCARDIAL INFARCTION 2.5-3.5 ID Date Data Source [id number] 08/25/2020 11:40:00 AM EST [facility] ([facility]) Name Value Range Interpretation Code Description Data Kaya rce(s) Supporting Document(s) INR in Platelet poor plasma by Coagulation assay 5.3 [facility] ([facility]) ID Date Data Source [id number] 08/25/2020 11:38:00 AM EST [facility] ([facility]) Name Value Range Interpretation Code Description Data Kaya rce(s) Supporting Document(s) Leukocytes [#/volume] in Blood by Automated count 9.1 x10*3/UL 4.1-10 .9 [facility] ([facility]) NOTE: CBC VERIFIED Erythrocytes [#/volume] in Blood by Automated count 3.73 x10*6/UL 4.2 0-6.30 [facility] ([facility]) Hemoglobin [Mass/volume] in Blood 11.4 g/dL 12.0-18.0 [facility] ([facility]) Hematocrit [Volume Fraction] of Blood by Automated count 33.5 % 3 7.0-51.0 [facility] ([facility]) MCV 89.8 fL 80.0-97.0 [facility] [facility] MCH 30.4 pg 26.0-32.0 [facility] ([place] [facility]) MCHC 33.9 g/dL 31.0-38.0 [facility] ([facility]) Erythrocyte distribution width [Ratio] by Automated count 14.6 % 11.6-13.7 [facility] ([facility]) Platelets [#/volume] in Blood by Automated count 366 x10*3/UL 140-440 [facility] ([facility]) MPV 7.9 FL 7.8-11.0 [facility] ([place] [facility]) Lymph % 11.1 % 10.0-58.5 [facility] ([facility] [facility]) Mid % 3.5 % 1.7-9.3 [facility] ([place] [facility]) Neut % 85.4 % 37.0-92.0 [facility] ([facility]) Lymph # 1.0 x10*3/UL 0.6-4.1 [facility] ([facility]) Mid # 0.3 x10*3/UL 0.1-0.6 [facility] ([facility]) Neut # 7.8 x10*3/UL 2.0-7.8 [facility] ([facility]) ID Date Data Source [id number] 08/25/2020 11:38:00 AM EST [facility] ([facility]) Name Value Range Interpretation Code Description Data Kaya rce(s) Supporting Document(s) Prothrombin Time 39.0 s 12.5-14.3 [facility] ([facility]) Inr 3.88 [facility] ([facility]) THERAPUTIC HUMAN INR VALUES INDICATIONS NORMAL RANGES PROPHYLAXIS/TREATMENT OF: VENOUS THROMBOSIS 2.0-3.0 PULMONARY EMBOLISM 2.0-3.0 PREVENTION OF SYSTEMIC EMBOLISM FROM: TISSUE HEART VALVES 2.0-3.0 ACUTE MYOCARDIAL INFARCTION 2.0-3.0 VALVULAR HEART DISEASE 2.0-3.0 ATRIAL FIBRILLATION 2.0-3.0 MECHANICAL VALVES(HIGH RISK) 2.5-3.5 RECURRENT MYOCARDIAL INFARCTION 2.5-3.5 ID Date Data Source [id number] 08/11/2020 11:25:00 AM EST [facility] ([facility]) Name Value Range Interpretation Code Description Data Kaya rce(s) Supporting Document(s) INR in Platelet poor plasma by Coagulation assay 3.7 [facility] ([facility]) ID Date Data Source [id number] 07/08/2020 12:00:00 AM EST [facility] Stephanie Murphy DO Patient Name: SPEEDY [id number] [facility] Date of : 1955[address] Date of Exam: 07/08/2020SO Owens [id number]#: Fax: [phone] EXAM: US ABDOMEN, LIMITED SINGLE [...] Fatty infiltration of the liver.Accredited by the [employer] in General Ultrasound.BREANNA Joseph/Ana you for referring SPEEDY DUEÑAS to our office. Electronically Signed - SUJIT JON DO 07/08/20 15:31 Name Value Range Interpretation Code Description Data Kaya rce(s) Supporting Document(s) ID Date Data Source [id number] 07/06/2020 11:38:00 AM EST [facility] ([facility]) Name Value Range Interpretation Code Description Data Kaya rce(s) Supporting Document(s) INR in Platelet poor plasma by Coagulation assay 2.3 [facility] ([facility]) ID Date Data Source [id number] 06/19/2020 02:44:00 PM EST [facility] ([facility]) Name Value Range Interpretation Code Description Data Kaya rce(s) Supporting Document(s) Iron (Fe) 55 ug/dL 50-170 [facility] ([place] [facility]) Total Iron Binding Capacity 394 ug/dL 250-450 [facility] ([facility]) Percent Saturation 14.0 % 13.2-45.0 [facility] ([facility]) ID Date Data Source [id number] 06/19/2020 02:44:00 PM EST [facility] ([facility]) Name Value Range Interpretation Code Description Data Kaya rce(s) Supporting Document(s) Hepatitis C virus Ab [Units/volume] in Serum by Immunoassay 0.1 INDEX [facility] ([facility]) Negative Not infected with HCV, unless recent infection is suspected or other evidence exists to indicate HCV infection. Ferritin [Mass/volume] in Serum or Plasma 43 ng/mL 8-252 [facility] ([facility]) Cobalamin (Vitamin B12) [Mass/volume] in Serum or Plasma 524 pg/mL 2 47-911 [facility] ([facility]) VITAMIN B12 NORMAL RANGE NORMAL 247 - 911 PG/ML INDETERMINATE 211 - 246 PG/ML DEFICIENT LESS THAN 211 PG/ML ID Date Data Source [id number] 06/19/2020 02:42:00 PM EST [facility] ([facility]) Name Value Range Interpretation Code Description Data Kaya rce(s) Supporting Document(s) Urea nitrogen [Mass/volume] in Serum or Plasma 18 mg/dL 7-18 [facility] ([facility]) Glucose [Mass/volume] in Serum or Plasma 141 mg/dL 74-99 [facility] ([facility]) 100-125 mg/dL PRE-DIABETES/FASTING >126 mg/dL DIABETES/FASTING Creatinine 1.3 mg/dL 0.6-1.3 [facility] ([facility]) Sodium [Moles/volume] in Serum or Plasma 136 meq/L 136-145 [facility] ([facility]) Potassium [Moles/volume] in Serum or Plasma 4.4 meq/L 3.5-5.1 [facility] ([facility]) Chloride [Moles/volume] in Serum or Plasma 101 meq/L 98-107 [facility] ([facility]) Carbon dioxide, total [Moles/volume] in Serum or Plasma 27 meq/L 21 -32 [facility] ([facility]) Calcium [Mass/volume] in Serum or Plasma 9.0 mg/dL 8.5-10.1 [facility] ([facility]) Alkaline phosphatase isoenzyme [Units/volume] in Serum or Pl asma 176 mg/dL 46-116 [facility] ([facility]) NOTE: ALK PHOS,T.BILI AND ALBUMIN VERIFIED Total Bilirubin 1.4 mg/dL 0.2-1.0 [facility] ([facility]) Aspartate aminotransferase [Enzymatic activity/volume] in Serum or Plasma 16 U/L 15-37 [facility] ([facility] ) Albumin [Mass/volume] in Serum or Plasma 3.1 g/dL 3.4-5.0 [facility] ([facility]) Alanine aminotransferase [Enzymatic activity/volume] in Seru m or Plasma 15 U/L 12-78 [facility] ([facility]) A/G Ratio 0.69 CALC 1.00-1.90 [facility] ([place] [facility]) Proteinase 3 Ab [Units/volume] in Serum 7.6 g/dL 6.4-8.2 [facility] ([facility]) Glomerular filtration rate/1.73 sq M pre dicted among non-blacks [Volume Rate/Area] in Serum or Plasma by Creatinine-based formula (MDRD) 41 mL/min [facility] ([facility]) Glomerular filtration rate/1.73 sq M pre dicted among blacks [Volume Rate/Area] in Serum or Plasma by Creatinine-based formula (MDRD) 50 mL/min [facility] <content>CHRONIC KIDNEY DISEASE STAGING PER NKF</content>
<content></content>
<content>STAGE I & II GFR >= 60 NORMAL TO MILDLY DECREASED</content>
<content>STAGE III GFR 30-59 MODERATELY DECREASED</content>
<content>STAGE IV GFR 15-29 SEVERELY DECREASED</content>
<content>STAGE V GFR <15 VERY LITTLE GFR LEFT</content>
<content>ESRD GFR <15 ON AUTOMOTIVE METALSMITH</content>
<content></content> ID Date Data Source [id number] 06/19/2020 02:42:00 PM EST [facility] ([facility]) Name Value Range Interpretation Code Description Data Kaya rce(s) Supporting Document(s) Leukocytes [#/volume] in Blood by Automated count 7.8 x10*3/UL 4.1-10 .9 [facility] ([facility]) Erythrocytes [#/volume] in Blood by Automated count 4.41 x10*6/UL 4.2 0-6.30 [facility] ([facility]) Hemoglobin [Mass/volume] in Blood 12.7 g/dL 12.0-18.0 [facility] ([facility]) Hematocrit [Volume Fraction] of Blood by Automated count 38.9 % 3 7.0-51.0 [facility] ([facility]) MCV 88.1 fL 80.0-97.0 [facility] ([place] [facility]) MCH 28.7 pg 26.0-32.0 [facility] ([place] [facility]) MCHC 32.6 g/dL 31.0-38.0 [facility] ([place] [facility]) Erythrocyte distribution width [Ratio] by Automated count 14.7 % 11.6-13.7 [facility] ([facility]) Platelets [#/volume] in Blood by Automated count 338 x10*3/UL 140-440 [facility] ([facility]) MPV 8.1 FL 7.8-11.0 [facility] [facility] Lymph % 15.8 % 10.0-58.5 [facility] [facility] Mid % 4.3 % 1.7-9.3 [facility] [facility] Neut % 79.9 % 37.0-92.0 [facility] ([place] [facility]) Lymph # 1.2 x10*3/UL 0.6-4.1 [facility] ([facility]) Mid # 0.4 x10*3/UL 0.1-0.6 [facility] ([facility]) Neut # 6.2 x10*3/UL 2.0-7.8 [facility] ([facility]) ID Date Data Source [id number] 06/05/2020 12:01:00 PM EDT [facility] ([facility]) Name Value Range Interpretation Code Description Data Kaya rce(s) Supporting Document(s) INR in Platelet poor plasma by Coagulation assay 2.4 [facility] ([facility]) ID Date Data Source [id number] 05/05/2020 11:43:00 AM EDT [facility] ([facility]) Name Value Range Interpretation Code Description Data Kaya rce(s) Supporting Document(s) INR in Platelet poor plasma by Coagulation assay 2.6 [facility] ([facility]) ID Date Data Source [id number] 04/27/2020 11:18:00 AM EDT [facility] ([facility]) Name Value Range Interpretation Code Description Data Kaya rce(s) Supporting Document(s) INR in Platelet poor plasma by Coagulation assay 4.0 [facility] ([facility]) ID Date Data Source [id number] 04/23/2020 12:00:[address] [facility] Stephanie Murphy DO Patient Name: SPEEDY [id number] Date of : 1955[address] Date of Exam: 04/23/2020SO Owens [id number]#: Fax: [phone] EXAM: MAMMO SCREENING WITH CADCLINICAL [...] was read with the assistance of Alexa BoydVedantu, an FDAapproved computer aided detection system for [...] rce(s) Supporting Document(s) ID Date Data Source [id number] 04/16/2020 10:27:00 AM EDT [facility] ([facility]) Name Value Range Interpretation Code Description Data Kaya rce(s) Supporting Document(s) Urea nitrogen [Mass/volume] in Serum or Plasma 17 mg/dL 7-18 [facility] ([facility]) Glucose [Mass/volume] in Serum or Plasma 120 mg/dL 74-99 [facility] ([facility]) 100-125 mg/dL PRE-DIABETES/FASTING >126 mg/dL DIABETES/FASTING Creatinine 1.4 mg/dL 0.6-1.3 [facility] Carbon dioxide, total [Moles/volume] in Serum or Plasma 25 meq/L 21 -32 [facility] ([facility]) Sodium [Moles/volume] in Serum or Plasma 130 meq/L 136-145 [facility] ([facility]) NOTE: RESULT VERIFIED. Potassium [Moles/volume] in Serum or Plasma 4.9 meq/L 3.5-5.1 [facility] ([facility]) Chloride [Moles/volume] in Serum or Plasma 96 meq/L 98-107 [facility] ([facility]) Total Bilirubin 1.3 mg/dL 0.2-1.0 [facility] ([facility]) Alkaline phosphatase isoenzyme [Units/volume] in Serum or Pl asma 346 mg/dL 46-116 [facility] ([facility]) Calcium [Mass/volume] in Serum or Plasma 8.4 mg/dL 8.5-10.1 [facility] ([facility]) NOTE: RESULT VERIFIED. Alanine aminotransferase [Enzymatic activity/volume] in Seru m or Plasma 27 U/L 12-78 [facility] ([facility]) Aspartate aminotransferase [Enzymatic activity/volume] in Serum or Plasma 20 U/L 15-37 [facility] ([facility] ) Proteinase 3 Ab [Units/volume] in Serum 6.7 g/dL 6.4-8.2 [facility] ([facility]) A/G Ratio 0.72 CALC 1.00-1.90 [facility] [facility] Albumin [Mass/volume] in Serum or Plasma 2.8 g/dL 3.4-5.0 [facility] ([facility]) NOTE: RESULT VERIFIED. Glomerular filtration rate/1.73 sq M pre dicted among non-blacks [Volume Rate/Area] in Serum or Plasma by Creatinine-based formula (MDRD) 38 mL/min [facility] Glomerular filtration rate/1.73 sq M pre dicted among blacks [Volume Rate/Area] in Serum or Plasma by Creatinine-based formula (MDRD) 46 mL/min [facility] <content>CHRONIC KIDNEY DISEASE STAGING PER NKF</content>
<content></content>
<content>STAGE I & II GFR >= 60 NORMAL TO MILDLY DECREASED</content>
<content>STAGE III GFR 30-59 MODERATELY DECREASED</content>
<content>STAGE IV GFR 15-29 SEVERELY DECREASED</content>
<content>STAGE V GFR <15 VERY LITTLE GFR LEFT</content>
<content>ESRD GFR <15 ON AUTOMOTIVE METALSMITH</content>
<content></content> ID Date Data Source [id number] 04/16/2020 10:27:00 AM EDT [facility] ([facility]) Name Value Range Interpretation Code Description Data Kaya rce(s) Supporting Document(s) Glucose mean value [Mass/volume] in Blood Estimated fr om glycated hemoglobin 134 mg/dL 60-110 [facility] ([facility] ) Hemoglobin A1c/Hemoglobin.total in Blood 6.3 g/dL 4.8-5.6 [facility] Lab Result Notes: Pre-Diabetes 5.7 - 6.4 % Diabetes = or > 6.5% ID Date Data Source [id number] 04/16/2020 10:27:00 AM EDT [facility] ([facility]) Name Value Range Interpretation Code Description Data Kaya rce(s) Supporting Document(s) Erythrocytes [#/volume] in Blood by Automated count 3.86 x10*6/UL 4.2 0-6.30 [facility] Leukocytes [#/volume] in Blood by Automated count 8.4 x10*3/UL 4.1-10 .9 [facility] MCV 85.4 fL 80.0-97.0 [facility] ([facility]) Hemoglobin [Mass/volume] in Blood 10.9 g/dL 12.0-18.0 [facility] Hematocrit [Volume Fraction] of Blood by Automated count 32.9 % 3 7.0-51.0 [facility] MCHC 33.0 g/dL 31.0-38.0 [facility] ([facility]) Erythrocyte distribution width [Ratio] by Automated count 13.4 % 11.6-13.7 [facility] MCH 28.2 pg 26.0-32.0 [facility] ([facility]) MPV 7.8 FL 7.8-11.0 [facility] ([facility]) Lymph % 10.8 % 10.0-58.5 [facility] ([facility]) Platelets [#/volume] in Blood by Automated count 360 x10*3/UL 140-440 [facility] ([facility]) Lymph # 0.9 x10*3/UL 0.6-4.1 [facility] ([facility]) Neut % 85.2 % 37.0-92.0 [facility] ([facility]) Mid % 4.0 % 1.7-9.3 [facility] ([facility]) Mid # 0.3 x10*3/UL 0.1-0.6 [facility] ([facility]) Neut # 7.2 x10*3/UL 2.0-7.8 [facility] ([facility]) ID Date Data Source [id number] 04/16/2020 10:27:00 AM EDT [facility] ([facility]) Name Value Range Interpretation Code Description Data Kaya rce(s) Supporting Document(s) Hemoglobin A1c/Hemoglobin.total in Blood Laboratory test result [facility] ID Date Data Source [id number] 04/15/2020 08:00:00 PM EDT [facility] ([facility]) Name Value Range Interpretation Code Description Data Kaya rce(s) Supporting Document(s) Urine Creatinine 75.6 mg/dL 30.0-125.0 [facility] ([facility]) Microalbumin Urine 115.2 mg/L 1.3-20.0 [facility] ([facility]) Microalb/Creat Ratio 152.4 ug/mg 0.0-30.0 [facility] ([facility]) ID Date Data Source [id number] 04/13/2020 02:09:00 PM EDT [facility] ([facility]) Name Value Range Interpretation Code Description Data Kaya rce(s) Supporting Document(s) INR in Platelet poor plasma by Coagulation assay 1.7 [facility] ([facility]) ID Date Data Source [id number] 04/13/2020 01:54:00 PM EDT [facility] ([facility]) Name Value Range Interpretation Code Description Data Kaya rce(s) Supporting Document(s) Hemoglobin A1c/Hemoglobin.total in Blood Laboratory test result [facility] ([facility]) ID Date Data Source [id number] 04/08/2020 10:28:34 PM EDT [facility] Name Value Range Interpretation Code Description Data Kaya rce(s) Supporting Document(s) &PDF [facility] MOYULg3oBsAIBmLd85/LQIfhNOPed8SxPRtwUMe6XLfmLDUzC0FzcNasGYRRSSAPCKuXSUMKU0IGUGKf vci [file] ICAgICAgICAgICAgICAgICAgICAgICAgICAgICAgICAgICAgICAgICAgICAgICAgICAgDQogICAgICAg ICAgICAgICAgICAgICAgICAgICAgICAgICAgICAgIC AgICAgICAgICAgICAgICAgICAgICAgICAgICAgICAgICAgICAgICAgICAgICAgICAgICAgICAgICAgIC AgDQogICAgICAgICAgICAgICAgICAgICAgICAgICAgICAgICAgICAgICAgICAgICAgICAgICAgICAgIC AgICAgICAgICAgICAgICAgICAgICAgICAgICAgICAg ICAgICAgICAgICAgDQogICAgICAgICAgICAgICAgICAgICAgICAgICAgICAgICAgICAgICAgICAgICAg ICAgICAgICAgICAgICAgICAgICAgICAgICAgICAgICAgICAgICAgICAgICAgICAgICAgICAgDQogICAg ICAgICAgICAgICAgICAgICAgICAgICAgICAgICAgIC AgICAgICAgICAgICAgICAgICAgICAgICAgICAgICAgICAgICAgICAgICAgICAgICAgICAgICAgICAgIC AgICAgDQogICAgICAgICAgICAgICAgICAgICAgICAgICAgICAgICAgICAgICAgICAgICAgICAgICAgIC AgICAgICAgICAgICAgICAgICAgICAgICAgICAgICAg ICAgICAgICAgICAgICAgDQogICAgICAgICAgICAgICAgICAgICAgICAgICAgICAgICAgICAgICAgICAg ICAgICAgICAgICAgICAgICAgICAgICAgICAgICAgICAgICAgICAgICAgICAgICAgICAgICAgICAgDQog ICAgICAgICAgICAgICAgICAgICAgICAgICAgICAgIC AgICAgICAgICAgICAgICAgICAgICAgICAgICAgICAgICAgICAgICAgICAgICAgICAgICAgICAgICAgIC AgICAgICAgDQogICAgICAgICAgICAgICAgICAgICAgICAgICAgICAgICAgICAgICAgICAgICAgICAgIC AgICAgICAgICAgICAgICAgICAgICAgICAgICAgICAg ICAgICAgICAgICAgICAgICAgDQogICAgICAgICAgICAgICAgICAgICAgICAgICAgICAgICAgICAgICAg ICAgICAgICAgICAgICAgICAgICAgICAgICAgICAgICAgICAgICAgICAgICAgICAgICAgICAgICAgICAg JDe8J0ptOWCuQOOtOV5lUWo6Zr1+MLaYMcLhPMT3uj ZxpT4QGO0oi6MrONusXJVxg0RjWMc6HY2WLIIfNJqwXU8UOJvgvc3LGTDdGILaiCFLv9qaVmBoSCR4TH ZrXptwHX4GCEDgN2wdefEeAVQmGHKVHUgcGVKIYO5MCwMzG2CnhA77QKTMYc2+DQplbmRvYmoNCjMzID Wmv1QuQNv7IQ3LZSAcMQomGI3IGCPjkB4yRCedOB8W UbCdVJKvUASZHuFiL47fvCUgXYa9Z7UvPaSjGMQsGoimCFStAOsvWqJrLUTgXrUzHXsyNA2+ID4+DQog GE3FDPlbsgWnJYTyMk2LENKhEQK8VQTmqFSvFbYzHXAFFHqaEA3IfVLoJUZ4kQ2tSIwpZVRoOWErE8wU ZaHenBfmLE25yJphgxLalPRiNOp+Ub9HWL7fz4LnJX s1foXjPYzaXGI2NTfxVLWiAFMzANUcALE0TGH0ZLWDFoPgJOHsEIFbFDjnMZHmZWHifn1ICBBvQNE7Nl Q3LxKyZXMvVDAmSAjeTGFiXSy4HMO6EYFuDXHiUO1EAaCdMXBgNRQsLRHsQLBpPDAgvh8GQXLqTXSmNx S9RKTaHRGzNLXtEQhyAWCwIQPgLqyvUDHhEBRwLS9L NqRyGDAmPCL2UWdpWQRcDYWbzk5WAEYnIKBvNaR5AyNpGHZpUOEtKKasCTYvQGV2RIDkFNSqKNJrIG3U AhByMZWvSPsoRYshPSJyHYXrpr7JRTEuYUFrYcZxHGJsFXAgKDEfITrkXLTzUPW1XXk8GOMbVPZiBK5F QzYrYVQkZSy9BDJlCWMeZIEcjg7DELQyDAMiAVq3NN IhBFHpUTGjTMmfNHFxYOAnZtT5KJPgWWGlRV5AQhMfUCDbKBTfLZEgZEWtIIGbag1WSRRwWJMtJDI5Qa BlHFYyBAPjJYvtKOFkNWZ3DBOhDATmKOJcCW2KFuLeLHMnXCU4HJJuSNLpKDJdil8SREIhUGSwEPD9Vq XnEBEgODMbLHojPHJgNUL2Uoc9WKUcQPTwQQ1JXzOa UCWxVLH9YIMtYREtRUQbzu7IYPNgNVQkVHOyVfJiZRAbBSQiNRmiLLZrAMN2JqjeTWIuJEEnCV3HUmPt NZKtIgU4CGBbEGJgAAMvjb6CGJMhAOO5ZKm9TWLiBEUjLCSgEMzsSVIgHVP7UlO7YZXmHYYpFN2NLhSq QEFdUxT0WaWbBPPpZQKkxr6JZXCjRHU2WEa4SIZtXQ LrQOYeJGhxHVAmEGv8VEE0HXWnFNZvSS7BUbWyHYJdPRk2WiEwGYFgMABbvw4YCJZuAKY3VGDsIMBgJU PxJUIsMMopBCLbMSz9YaKxRLExQPKiIJ0XAhLvUDqnQQJZZnj4SAxuV6d1XUYzBI1HV3Tcy1NxTnGlZI IOHSggSM7nehVzRKMlNj0HN5vFAyokOKW6YTTdMJBx NoK7SVR9DlG8KdTiNXH9XiVlFTJlRK1iKXXaQqLoWLQvChOdBcFlUttcPDHeWDL0HGuhHzDqHwGdFbVd HJ4UYg4ZXlX7NAL7lWVtHt6IUQh5DkbNEbXnLI9VCJx= Procedure Social History Code Duration Value Status Description Data Source(s ) Smoking 05/26/2021 12:00:00 AM EDT Never Smoker completed Never S moker eCW1 ([facility]) Smoking 05/12/2021 12:00:00 AM EDT Never Smoker completed Never S moker eCW1 ([facility]) Smoking 04/28/2021 12:00:00 AM EDT Never Smoker completed Never S moker eCW1 ([facility]) Smoking 04/07/2021 12:00:00 AM EDT Never Smoker completed Never S moker eCW1 ([facility]) Smoking 04/07/2021 12:00:00 AM EDT Never Smoker completed Never S moker eCW1 ([facility]) Smoking 03/24/2021 12:00:00 AM EDT Never Smoker completed Never S moker eCW1 ([facility]) Smoking 03/24/2021 12:00:00 AM EDT Never Smoker completed Never S moker eCW1 ([facility]) Smoking 03/17/2021 12:00:00 AM EDT Never Smoker completed Never S moker eCW1 ([facility]) Smoking 03/04/2021 12:00:00 AM EDT Never Smoker completed Never S moker eCW1 ([facility]) Smoking 02/24/2021 12:00:00 AM EDT Never Smoker completed Never S moker eCW1 ([facility]) Smoking 02/17/2021 12:00:00 AM EDT Never Smoker completed Never S moker eCW1 ([facility]) Smoking 02/17/2021 12:00:00 AM EDT Never Smoker completed Never S moker eCW1 ([facility]) Smoking 02/03/2021 12:00:00 AM EDT Never Smoker completed Never S moker eCW1 ([facility]) Smoking 02/03/2021 12:00:00 AM EDT Never Smoker completed Never S moker eCW1 ([facility]) Smoking 02/03/2021 12:00:00 AM EDT Never Smoker completed Never S moker eCW1 ([facility]) Smoking 01/21/2021 12:00:00 AM EDT Never Smoker completed Never S moker eCW1 ([facility]) Smoking 01/07/2021 12:00:00 AM EDT Never Smoker completed Never S moker eCW1 ([facility]) Smoking 01/07/2021 12:00:00 AM EDT Never Smoker completed Never S moker eCW1 ([facility]) Smoking 12/24/2020 12:00:00 AM EDT Never Smoker completed Never S moker eCW1 ([facility]) Smoking 12/24/2020 12:00:00 AM EDT Never Smoker completed Never S moker eCW1 ([facility]) Smoking 2020 12:00:00 AM EDT Never Smoker completed Never S moker eCW1 ([facility]) Smoking 2020 12:00:00 AM EDT Never Smoker completed Never S moker eCW1 ([facility]) Smoking 12/21/2020 12:00:00 AM EDT Never Smoker completed Never S moker eCW1 ([facility]) Smoking 12/18/2020 12:00:00 AM EDT Never Smoker completed Never S moker eCW1 ([facility]) Smoking 12/18/2020 12:00:00 AM EDT Never Smoker completed Never S moker eCW1 ([facility]) Smoking 12/17/2020 12:00:00 AM EDT Never Smoker completed Never S moker eCW1 ([facility]) Smoking 12/15/2020 12:00:00 AM EDT Never Smoker completed Never S moker eCW1 ([facility]) Smoking 12/11/2020 12:00:00 AM EDT Never Smoker completed Never S moker eCW1 ([facility]) Smoking 12/10/2020 12:00:00 AM EDT Never Smoker completed Never S moker eCW1 ([facility]) Smoking 12/09/2020 12:00:00 AM EDT Never Smoker completed Never S moker eCW1 ([facility]) Smoking 12/09/2020 12:00:00 AM EDT Never Smoker completed Never S moker eCW1 ([facility]) Smoking 12/08/2020 12:00:00 AM EDT Never Smoker completed Never S moker eCW1 ([facility]) Smoking 12/08/2020 12:00:00 AM EDT Never Smoker completed Never S moker eCW1 ([facility]) Smoking 12/04/2020 12:00:00 AM EDT Never Smoker completed Never S moker eCW1 ([facility]) Smoking 12/02/2020 12:00:00 AM EDT Never Smoker completed Never S moker eCW1 ([facility]) Smoking 12/02/2020 12:00:00 AM EDT Never Smoker completed Never S moker eCW1 ([facility]) Smoking 12/02/2020 12:00:00 AM EDT Never Smoker completed Never S moker eCW1 ([facility]) Smoking 11/30/2020 12:00:00 AM EDT Never Smoker completed Never S moker eCW1 ([facility]) Smoking 11/30/2020 12:00:00 AM EDT Never Smoker completed Never S moker eCW1 ([facility]) Smoking 11/26/2020 12:00:00 AM EDT Never Smoker completed Never S moker eCW1 ([facility]) Smoking 11/26/2020 12:00:00 AM EDT Never Smoker completed Never S moker eCW1 ([facility]) Smoking 11/26/2020 12:00:00 AM EDT Never Smoker completed Never S moker eCW1 ([facility]) Smoking 11/24/2020 12:00:00 AM EDT Never Smoker completed Never S moker eCW1 ([facility]) Smoking 11/24/2020 12:00:00 AM EDT Never Smoker completed Never S moker eCW1 ([facility]) Smoking 11/24/2020 12:00:00 AM EDT Never Smoker completed Never S moker eCW1 ([facility]) Smoking 11/20/2020 12:00:00 AM EDT Never Smoker completed Never S moker eCW1 ([facility]) Smoking 11/20/2020 12:00:00 AM EDT Never Smoker completed Never S moker eCW1 ([facility]) Smoking 11/18/2020 12:00:00 AM EDT Never Smoker completed Never S moker eCW1 ([facility]) Smoking 11/17/2020 12:00:00 AM EDT Never Smoker completed Never S moker eCW1 ([facility]) Smoking 11/17/2020 12:00:00 AM EDT Never Smoker completed Never S moker eCW1 ([facility]) Smoking 11/17/2020 12:00:00 AM EDT Never Smoker completed Never S moker eCW1 ([facility]) Smoking 11/13/2020 12:00:00 AM EDT Never Smoker completed Never S moker eCW1 ([facility]) Smoking 11/13/2020 12:00:00 AM EDT Never Smoker completed Never S moker eCW1 ([facility]) Smoking 11/13/2020 12:00:00 AM EDT Never Smoker completed Never S moker eCW1 ([facility]) Smoking 11/13/2020 12:00:00 AM EDT Never Smoker completed Never S moker eCW1 ([facility]) Smoking 11/09/2020 12:00:00 AM EDT Never Smoker completed Never S moker eCW1 ([facility]) Smoking 11/09/2020 12:00:00 AM EDT Never Smoker completed Never S moker eCW1 ([facility]) Smoking 11/09/2020 12:00:00 AM EDT Never Smoker completed Never S moker eCW1 ([facility]) Smoking 11/06/2020 12:00:00 AM EDT Never Smoker completed Never S moker eCW1 ([facility]) Smoking 11/05/2020 12:00:00 AM EDT Never Smoker completed Never S moker eCW1 ([facility]) Smoking 11/04/2020 12:00:00 AM EDT Never Smoker completed Never S moker eCW1 ([facility]) Smoking 11/04/2020 12:00:00 AM EDT Never Smoker completed Never S moker eCW1 ([facility]) Smoking 11/02/2020 12:00:00 AM EDT Never Smoker completed Never S moker eCW1 ([facility]) Smoking 11/02/2020 12:00:00 AM EDT Never Smoker completed Never S moker eCW1 ([facility]) Smoking 10/30/2020 12:00:00 AM EDT Never Smoker completed Never S moker eCW1 ([facility]) Smoking 10/28/2020 12:00:00 AM EDT Never Smoker completed Never S moker eCW1 ([facility]) Smoking 10/28/2020 12:00:00 AM EDT Never Smoker completed Never S moker eCW1 ([facility]) Smoking 10/27/2020 12:00:00 AM EDT Never Smoker completed Never S moker eCW1 ([facility]) Smoking 10/21/2020 12:00:00 AM EST Never Smoker completed Never S moker eCW1 ([facility]) Smoking 10/21/2020 12:00:00 AM EST Never Smoker completed Never S moker eCW1 ([facility]) Smoking 10/14/2020 12:00:00 AM EST Never Smoker completed Never S moker eCW1 ([facility]) Smoking 10/07/2020 12:00:00 AM EST Never Smoker completed Never S moker eCW1 ([facility]) Smoking 08/31/2020 12:00:00 AM EST Never Smoker completed Never S moker eCW1 ([facility]) Smoking 08/31/2020 12:00:00 AM EST Never Smoker completed Never S moker eCW1 ([facility]) Smoking 08/31/2020 12:00:00 AM EST Never Smoker completed Never S moker eCW1 ([facility]) Smoking 08/31/2020 12:00:00 AM EST Never Smoker completed Never S moker eCW1 ([facility]) Smoking 08/19/2020 12:00:00 AM EST Never Smoker completed Never S moker eCW1 ([facility]) Smoking 08/11/2020 12:00:00 AM EST Never Smoker completed Never S moker eCW1 ([facility]) Smoking 08/11/2020 12:00:00 AM EST Never Smoker completed Never S moker eCW1 ([facility]) Smoking 08/05/2020 12:00:00 AM EST Never Smoker completed Never S moker eCW1 ([facility]) Smoking 07/28/2020 12:00:00 AM EST Never Smoker completed Never S moker eCW1 ([facility]) Smoking 07/28/2020 12:00:00 AM EST Never Smoker completed Never S moker eCW1 ([facility]) Smoking 06/22/2020 12:00:00 AM EST Never Smoker completed Never S moker eCW1 ([facility]) Smoking 06/22/2020 12:00:00 AM EST Never Smoker completed Never S moker eCW1 ([facility]) Smoking 06/03/2020 12:00:00 AM EDT Never Smoker completed Never S moker eCW1 ([facility]) Smoking 06/03/2020 12:00:00 AM EDT Never Smoker completed Never S moker eCW1 ([facility]) Smoking 05/20/2020 12:00:00 AM EDT Never Smoker completed Never S moker eCW1 ([facility]) Vital Signs ID Date Data Source UNK Name Value Range Interpretation Code Description Data Source(s) Body weight 243 [lb_av] 243 [lb_av] [facility] Body height [in_i] eCW1 ([facility]) Body mass index (BMI) [Ratio] 41.71 kg/m2 41.71 kg/m2 eCW1 ([facility]) Body temperature 97.8 [degF] 97.8 [degF] eCW1 ( [facility]) Heart rate 73 /min 73 /min eCW1 ([facility]) Systolic blood pressure 118 mm[Hg] 118 mm[Hg] e CW1 ([facility]) Diastolic blood pressure 77 mm[Hg] 77 mm[Hg] eCW1 ([facility]) Respiratory rate 19 /min 19 /min eCW1 ([facility]) Systolic blood pressure 122 mm[Hg] 122 mm[Hg] M EDENT ([facility]) Diastolic blood pressure 72 mm[Hg] 72 mm[Hg] MEDENT ([facility]) Heart rate 72 /min 72 /min MEDENT ([facility]) Body height 63.5 [in_i] 63.5 [in_i] MEDENT ([facility]) 5'3.50" Body weight 238.00 [lb_av] 238.00 [lb_av] MEDEN T ([facility]) Oxygen saturation in Arterial blood by Pulse oximetry 97 % 97 % MEDENT ([facility]) Body mass index (BMI) [Ratio] 41.5 kg/m2 41.5 k g/m2 MEDENT ([facility]) Body weight 247 [lb_av] 247 [lb_av] eCW1 [facility] Body height [in_i] eCW1 ([facility]) Body mass index (BMI) [Ratio] 42.39 kg/m2 42.39 kg/m2 eCW1 ([facility]) Heart rate 74 /min 74 /min eCW1 ([facility]) Respiratory rate 18 /min 18 /min eCW1 ([facility]) Body temperature 97 [degF] 97 [degF] eCW1 ([facility]) Systolic blood pressure 146 mm[Hg] 146 mm[Hg] e CW1 ([facility]) Diastolic blood pressure 64 mm[Hg] 64 mm[Hg] eCW1 ([facility]) Body weight 247 [lb_av] 247 [lb_av] eCW1 ([facility] Body weight 112.04 kg 112.04 kg eCW1 ([facility]) Body height [in_i] eCW1 ([facility]) Body mass index (BMI) [Ratio] 42.39 kg/m2 42.39 kg/m2 eCW1 ([facility]) Heart rate 73 /min 73 /min eCW1 ([facility]) Respiratory rate 16 /min 16 /min eCW1 ([facility]) Body temperature 98.1 [degF] 98.1 [degF] eCW1 ( [facility]) Systolic blood pressure 150 mm[Hg] 150 mm[Hg] e CW1 ([facility]) Diastolic blood pressure 70 mm[Hg] 70 mm[Hg] eCW1 ([facility]) Systolic blood pressure 110 mm[Hg] 110 mm[Hg] M EDENT ([facility], ) Diastolic blood pressure 70 mm[Hg] 70 mm[Hg] MEDENT ([facility], ) Heart rate 72 /min 72 /min MEDENT ([facility], ) Respiratory rate 16 /min 16 /min MEDENT ( [facility], ) Body weight 247 [lb_av] 247 [lb_av] eCW1 ([facility]) Body height [in_i] eCW1 ([facility]) Body mass index (BMI) [Ratio] 42.39 kg/m2 42.39 kg/m2 eCW1 ([facility]) Heart rate 65 /min 65 /min eCW1 ([facility]) Respiratory rate 17 /min 17 /min eCW1 ([facility]) Body temperature 98.4 [degF] 98.4 [degF] eCW1 ( [facility]) Systolic blood pressure 124 mm[Hg] 124 mm[Hg] e CW1 ([facility]) Diastolic blood pressure 59 mm[Hg] 59 mm[Hg] eCW1 ([facility]) Body weight 247 [lb_av] 247 [lb_av] eCW1 ([facility] Body height [in_i] eCW1 ([facility]) Body mass index (BMI) [Ratio] 42.39 kg/m2 42.39 kg/m2 eCW1 ([facility]) Heart rate 73 /min 73 /min eCW1 ([facility]) Respiratory rate 16 /min 16 /min eCW1 ([facility]) Body temperature 98.3 [degF] 98.3 [degF] eCW1 ( [facility]) Systolic blood pressure 144 mm[Hg] 144 mm[Hg] e CW1 ([facility]) Diastolic blood pressure 66 mm[Hg] 66 mm[Hg] eCW1 ([facility]) Diastolic blood pressure 66 mm[Hg] 66 mm[Hg] eCW1 ([facility]) Body weight 247 [lb_av] 247 [lb_av] eCW1 ([facility] Body height [in_i] eCW1 ([facility]) Body mass index (BMI) [Ratio] 42.39 kg/m2 42.39 kg/m2 eCW1 ([facility]) Heart rate 69 /min 69 /min eCW1 ([facility]) Respiratory rate 16 /min 16 /min eCW1 ([facility]) Body temperature 98.4 [degF] 98.4 [degF] eCW1 ( [facility]) Systolic blood pressure 115 mm[Hg] 115 mm[Hg] e CW1 ([facility]) Body weight 247 [lb_av] 247 [lb_av] eCW1 ([facility] Body height [in_i] eCW1 ([facility]) Body mass index (BMI) [Ratio] 42.39 kg/m2 42.39 kg/m2 eCW1 ([facility]) Heart rate 66 /min 66 /min eCW1 ([facility]) Respiratory rate 16 /min 16 /min eCW1 ([facility]) Body temperature 96.3 [degF] 96.3 [degF] eCW1 ( [facility]) Systolic blood pressure 117 mm[Hg] 117 mm[Hg] e CW1 ([facility]) Diastolic blood pressure 68 mm[Hg] 68 mm[Hg] eCW1 ([facility]) Systolic blood pressure 122 mm[Hg] 122 mm[Hg] e CW1 ([facility]) Diastolic blood pressure 87 mm[Hg] 87 mm[Hg] eCW1 ([facility]) Body weight 247 [lb_av] 247 [lb_av] eCW1 ([facility] Body temperature 95.1 [degF] 95.1 [degF] eCW1 ( [facility]) Body weight kg eCW1 ([facility]) Body height [in_i] eCW1 ([facility]) Body mass index (BMI) [Ratio] 42.39 kg/m2 42.39 kg/m2 eCW1 ([facility]) Heart rate 73 /min 73 /min eCW1 ([facility]) Respiratory rate 19 /min 19 /min eCW1 ([facility]) Body weight 247 [lb_av] 247 [lb_av] eCW1 ([facility]) Body weight kg eCW1 ([facility]) Body height [in_i] eCW1 ([facility]) Body mass index (BMI) [Ratio] 42.39 kg/m2 42.39 kg/m2 eCW1 ([facility]) Heart rate 71 /min 71 /min eCW1 ([facility]) Respiratory rate 18 /min 18 /min eCW1 ([facility]) Body temperature 94.9 [degF] 94.9 [degF] eCW1 ( [facility]) Systolic blood pressure 85 mm[Hg] 85 mm[Hg] e CW1 ([facility]) Diastolic blood pressure 43 mm[Hg] 43 mm[Hg] eCW1 ([facility]) Body weight 247 [lb_av] 247 [lb_av] eCW1 ([facility]) Body weight kg eCW1 ([facility]) Body height [in_i] eCW1 ([facility]) Body mass index (BMI) [Ratio] 42.39 kg/m2 42.39 kg/m2 eCW1 ([facility]) Heart rate 76 /min 76 /min eCW1 ([facility]) Respiratory rate 18 /min 18 /min eCW1 ([facility]) Body temperature 98.3 [degF] 98.3 [degF] eCW1 ( [facility]) Systolic blood pressure 126 mm[Hg] 126 mm[Hg] e CW1 ([facility]) Diastolic blood pressure 60 mm[Hg] 60 mm[Hg] eCW1 ([facility]) Body weight 247 [lb_av] 247 [lb_av] eCW1 ([facility] Body weight kg eCW1 ([facility]) Body height [in_i] eCW1 ([facility]) Body mass index (BMI) [Ratio] 42.39 kg/m2 42.39 kg/m2 eCW1 ([facility]) Heart rate 68 /min 68 /min eCW1 ([facility]) Respiratory rate 18 /min 18 /min eCW1 ([facility]) Body temperature 98.2 [degF] 98.2 [degF] eCW1 ( [facility]) Systolic blood pressure 124 mm[Hg] 124 mm[Hg] e CW1 ([facility]) Diastolic blood pressure 59 mm[Hg] 59 mm[Hg] eCW1 ([facility]) Body weight 247 [lb_av] 247 [lb_av] eCW1 ([facility] Body weight kg eCW1 ([facility]) Body height [in_i] eCW1 ([facility]) Body mass index (BMI) [Ratio] 42.39 kg/m2 42.39 kg/m2 eCW1 ([facility]) Heart rate 69 /min 69 /min eCW1 ([facility]) Respiratory rate 18 /min 18 /min eCW1 ([facility]) Body temperature 98.1 [degF] 98.1 [degF] eCW1 ( [facility]) Systolic blood pressure 122 mm[Hg] 122 mm[Hg] e CW1 ([facility]) Diastolic blood pressure 61 mm[Hg] 61 mm[Hg] eCW1 ([facility]) Body height [in_i] eCW1 ([facility]) Body weight 247 [lb_av] 247 [lb_av] eCW1 ([facility] Body weight kg eCW1 ([facility]) Respiratory rate 17 /min 17 /min eCW1 ([facility]) Body temperature 98.3 [degF] 98.3 [degF] eCW1 ( [facility]) Systolic blood pressure 113 mm[Hg] 113 mm[Hg] e CW1 ([facility]) Diastolic blood pressure 55 mm[Hg] 55 mm[Hg] eCW1 ([facility]) Body mass index (BMI) [Ratio] 42.39 kg/m2 42.39 kg/m2 eCW1 ([facility]) Heart rate 64 /min 64 /min eCW1 ([facility]) Body weight kg eCW1 ([facility]) Body weight 247 [lb_av] 247 [lb_av] eCW1 ([facility] Body height [in_i] eCW1 ([facility]) Body mass index (BMI) [Ratio] 42.39 kg/m2 42.39 kg/m2 eCW1 ([facility]) Body temperature 97.8 [degF] 97.8 [degF] eCW1 ( [facility]) Body weight 247 [lb_av] 247 [lb_av] eCW1 ([facility] Body weight kg eCW1 ([facility]) Body height [in_i] eCW1 ([facility]) Body mass index (BMI) [Ratio] 42.39 kg/m2 42.39 kg/m2 eCW1 ([facility]) Heart rate 65 /min 65 /min eCW1 ([facility]) Respiratory rate 19 /min 19 /min eCW1 ([facility]) Body temperature 98.5 [degF] 98.5 [degF] eCW1 ( [facility]) Systolic blood pressure 123 mm[Hg] 123 mm[Hg] e CW1 ([facility]) Diastolic blood pressure 59 mm[Hg] 59 mm[Hg] eCW1 ([facility]) Body weight 247 [lb_av] 247 [lb_av] eCW1 ([facility]) Body weight kg eCW1 ([facility]) Body height [in_i] eCW1 ([facility]) Body mass index (BMI) [Ratio] 42.39 kg/m2 42.39 kg/m2 eCW1 ([facility]) Heart rate 72 /min 72 /min eCW1 ([facility]) Respiratory rate 18 /min 18 /min eCW1 ([facility]) Body temperature 98.5 [degF] 98.5 [degF] eCW1 ( [facility]) Systolic blood pressure 136 mm[Hg] 136 mm[Hg] e CW1 ([facility]) Diastolic blood pressure 62 mm[Hg] 62 mm[Hg] eCW1 ([facility]) Body weight 247 [lb_av] 247 [lb_av] eCW1 ([facility]) Body weight kg eCW1 ([facility]) Body height [in_i] eCW1 ([facility]) Body mass index (BMI) [Ratio] 42.39 kg/m2 42.39 kg/m2 eCW1 ([facility]) Body temperature 98.1 [degF] 98.1 [degF] eCW1 ( [facility]) Heart rate 70 /min 70 /min eCW1 ([facility]) Systolic blood pressure 126 mm[Hg] 126 mm[Hg] e CW1 ([facility]) Diastolic blood pressure 63 mm[Hg] 63 mm[Hg] eCW1 ([facility]) Respiratory rate 18 /min 18 /min eCW1 ([facility]) Body weight 247 [lb_av] 247 [lb_av] eCW1 (Critical [facility] Body [facility] kg eCW1 ([facility]) Body height [in_i] eCW1 ([facility]) Body mass index (BMI) [Ratio] 42.39 kg/m2 42.39 kg/m2 eCW1 ([facility]) Heart rate 78 /min 78 /min eCW1 ([facility]) Respiratory rate 18 /min 18 /min eCW1 ([facility]) Body temperature 98.2 [degF] 98.2 [degF] eCW1 ( [facility]) Systolic blood pressure 124 mm[Hg] 124 mm[Hg] e CW1 ([facility]) Diastolic blood pressure 60 mm[Hg] 60 mm[Hg] eCW1 ([facility]) Body weight 247 [lb_av] 247 [lb_av] eCW1 [facility] Body weight kg eCW1 ([facility]) Body height [in_i] eCW1 ([facility]) Body mass index (BMI) [Ratio] 42.39 kg/m2 42.39 kg/m2 eCW1 ([facility]) Heart rate 72 /min 72 /min eCW1 ([facility]) Respiratory rate 18 /min 18 /min eCW1 ([facility]) Body temperature 98.4 [degF] 98.4 [degF] eCW1 ( [facility]) Systolic blood pressure 125 mm[Hg] 125 mm[Hg] e CW1 ([facility]) Diastolic blood pressure 67 mm[Hg] 67 mm[Hg] eCW1 ([facility]) Body weight 247 [lb_av] 247 [lb_av] eCW1 ([facility]) Body weight kg eCW1 ([facility]) Body height [in_i] eCW1 ([facility]) Body mass index (BMI) [Ratio] 42.39 kg/m2 42.39 kg/m2 eCW1 ([facility]) Heart rate 67 /min 67 /min eCW1 ([facility]) Respiratory rate 18 /min 18 /min eCW1 ([facility]) Body temperature 97.4 [degF] 97.4 [degF] eCW1 ( [facility]) Systolic blood pressure 136 mm[Hg] 136 mm[Hg] e CW1 ([facility]) Diastolic blood pressure 68 mm[Hg] 68 mm[Hg] eCW1 ([facility]) Body weight 247 [lb_av] 247 [lb_av] eCW1 ([facility]) Body weight kg eCW1 ([facility]) Body height [in_i] eCW1 ([facility]) Body mass index (BMI) [Ratio] 42.39 kg/m2 42.39 kg/m2 W1 ([facility]) Heart rate 74 /min 74 /min eCW1 ([facility]) Respiratory rate 18 /min 18 /min eCW1 ([facility]) Body temperature 97.9 [degF] 97.9 [degF] eCW1 ( [facility]) Systolic blood pressure 108 mm[Hg] 108 mm[Hg] e CW1 ([facility]) Diastolic blood pressure 59 mm[Hg] 59 mm[Hg] eCW1 ([facility]) Body weight 247 [lb_av] 247 [lb_av] eCW1 ([facility]) Body weight kg eCW1 ([facility]) Body height [in_i] eCW1 ([facility]) Body mass index (BMI) [Ratio] 42.39 kg/m2 42.39 kg/m2 eCW1 ([facility]) Heart rate 74 /min 74 /min eCW1 ([facility]) Respiratory rate 18 /min 18 /min eCW1 ([facility]) Body temperature 97.9 [degF] 97.9 [degF] eCW1 ( [facility]) Systolic blood pressure 108 mm[Hg] 108 mm[Hg] e CW1 ([facility]) Diastolic blood pressure 55 mm[Hg] 55 mm[Hg] eCW1 ([facility]) Body weight 247 [lb_av] 247 [lb_av] eCW1 ([facility]) Body weight kg eCW1 ([facility]) Body height [in_i] eCW1 ([facility]) Body mass index (BMI) [Ratio] 42.39 kg/m2 42.39 kg/m2 eCW1 ([facility]) Heart rate 67 /min 67 /min eCW1 ([facility]) Respiratory rate 18 /min 18 /min eCW1 ([facility]) Body temperature 97.0 [degF] 97.0 [degF] eCW1 ( [facility]) Systolic blood pressure 126 mm[Hg] 126 mm[Hg] e CW1 ([facility]) Diastolic blood pressure 68 mm[Hg] 68 mm[Hg] eCW1 ([facility]) Body weight 247 [lb_av] 247 [lb_av] eCW1 ([facility]) Body weight kg eCW1 ([facility]) Body height [in_i] eCW1 ([facility]) Body mass index (BMI) [Ratio] 42.39 kg/m2 42.39 kg/m2 eCW1 ([facility]) Heart rate 70 /min 70 /min eCW1 ([facility]) Respiratory rate 18 /min 18 /min eCW1 ([facility]) Body temperature 98.1 [degF] 98.1 [degF] eCW1 ( [facility]) Systolic blood pressure 132 mm[Hg] 132 mm[Hg] e CW1 ([facility]) Diastolic blood pressure 63 mm[Hg] 63 mm[Hg] eCW1 ([facility]) Body weight 247 [lb_av] 247 [lb_av] eCW1 ([facility]) Body weight kg eCW1 ([facility]) Body height [in_i] eCW1 ([facility]) Body mass index (BMI) [Ratio] 42.39 kg/m2 42.39 kg/m2 eCW1 ([facility]) Heart rate 68 /min 68 /min eCW1 ([facility]) Respiratory rate 18 /min 18 /min eCW1 ([facility]) Body temperature 97.8 [degF] 97.8 [degF] eCW1 ( [facility]) Systolic blood pressure 135 mm[Hg] 135 mm[Hg] e CW1 ([facility]) Diastolic blood pressure 63 mm[Hg] 63 mm[Hg] eCW1 ([facility]) Body weight 247 [lb_av] 247 [lb_av] eCW1 ([facility]) Body weight kg eCW1 ([facility]) Body height [in_i] eCW1 ([facility]) Body mass index (BMI) [Ratio] 42.39 kg/m2 42.39 kg/m2 eCW1 ([facility]) Heart rate 68 /min 68 /min eCW1 ([facility]) Respiratory rate 18 /min 18 /min eCW1 ([facility]) Body temperature 97.8 [degF] 97.8 [degF] eCW1 ( [facility]) Systolic blood pressure 135 mm[Hg] 135 mm[Hg] e CW1 ([facility]) Diastolic blood pressure 63 mm[Hg] 63 mm[Hg] eCW1 ([facility]) Body weight 247 [lb_av] 247 [lb_av] eCW1 ([facility]) Body weight kg eCW1 ([facility]) Body height [in_i] eCW1 ([facility]) Body mass index (BMI) [Ratio] 42.39 kg/m2 42.39 kg/m2 eCW1 ([facility]) Heart rate 71 /min 71 /min eCW1 ([facility]) Respiratory rate 18 /min 18 /min eCW1 ([facility]) Body temperature 98.2 [degF] 98.2 [degF] eCW1 ( [facility]) Systolic blood pressure 134 mm[Hg] 134 mm[Hg] e CW1 ([facility]) Diastolic blood pressure 62 mm[Hg] 62 mm[Hg] eCW1 ([facility]) Body weight kg eCW1 ([facility]) Body weight 247 [lb_av] 247 [lb_av] eCW1 ([facility]) Body height [in_i] eCW1 ([facility]) Body mass index (BMI) [Ratio] 42.39 kg/m2 42.39 kg/m2 eCW1 ([facility]) Heart rate 66 /min 66 /min eCW1 ([facility]) Respiratory rate 18 /min 18 /min eCW1 ([facility]) Body temperature 97.9 [degF] 97.9 [degF] eCW1 ( [facility]) Systolic blood pressure 143 mm[Hg] 143 mm[Hg] e CW1 ([facility]) Diastolic blood pressure 64 mm[Hg] 64 mm[Hg] eCW1 ([facility]) Body weight 247 [lb_av] 247 [lb_av] eCW1 ([facility]) Body weight kg eCW1 ([facility]) Body height [in_i] eCW1 ([facility]) Diastolic blood pressure 65 mm[Hg] 65 mm[Hg] eCW1 ([facility]) Body mass index (BMI) [Ratio] 42.39 kg/m2 42.39 kg/m2 eCW1 ([facility]) Heart rate 72 /min 72 /min eCW1 ([facility]) Respiratory rate 18 /min 18 /min eCW1 ([facility]) Body temperature 98.4 [degF] 98.4 [degF] eCW1 ( [facility]) Systolic blood pressure 137 mm[Hg] 137 mm[Hg] e CW1 ([facility]) Body weight 247 [lb_av] 247 [lb_av] eCW1 ([facility]) Heart rate 78 /min 78 /min eCW1 ([facility]) Respiratory rate 18 /min 18 /min eCW1 ([facility]) Body temperature 98.2 [degF] 98.2 [degF] eCW1 ( [facility]) Systolic blood pressure 138 mm[Hg] 138 mm[Hg] e CW1 ([facility]) Diastolic blood pressure 64 mm[Hg] 64 mm[Hg] eCW1 ([facility]) Body weight kg eCW1 ([facility]) Body height [in_i] eCW1 ([facility]) Body mass index (BMI) [Ratio] 42.39 kg/m2 42.39 kg/m2 eCW1 ([facility]) Body weight 247 [lb_av] 247 [lb_av] eCW1 ([facility]) Body weight kg eCW1 ([facility]) Body height [in_i] eCW1 ([facility]) Body mass index (BMI) [Ratio] 42.39 kg/m2 42.39 kg/m2 eCW1 ([facility]) Heart rate 77 /min 77 /min eCW1 ([facility]) Respiratory rate 18 /min 18 /min eCW1 ([facility]) Body temperature 97.6 [degF] 97.6 [degF] eCW1 ( [facility]) Systolic blood pressure 132 mm[Hg] 132 mm[Hg] e CW1 ([facility]) Diastolic blood pressure 60 mm[Hg] 60 mm[Hg] eCW1 ([facility]) Body weight 247 [lb_av] 247 [lb_av] eCW1 ([facility]) Body weight kg eCW1 ([facility]) Body height [in_i] eCW1 ([facility]) Body mass index (BMI) [Ratio] 42.39 kg/m2 42.39 kg/m2 eCW1 ([facility]) Heart rate 77 /min 77 /min eCW1 ([facility]) Respiratory rate 18 /min 18 /min eCW1 ([facility]) Body temperature 97.6 [degF] 97.6 [degF] eCW1 ( [facility]) Systolic blood pressure 132 mm[Hg] 132 mm[Hg] e CW1 ([facility]) Diastolic blood pressure 60 mm[Hg] 60 mm[Hg] eCW1 ([facility]) Body weight 247 [lb_av] 247 [lb_av] eCW1 ([facility]) Body weight kg eCW1 ([facility]) Body height [in_i] eCW1 ([facility]) Body mass index (BMI) [Ratio] 42.39 kg/m2 42.39 kg/m2 eCW1 ([facility]) Heart rate 76 /min 76 /min eCW1 ([facility]) Respiratory rate 18 /min 18 /min eCW1 ([facility]) Body temperature 98.1 [degF] 98.1 [degF] eCW1 ( [facility]) Systolic blood pressure 133 mm[Hg] 133 mm[Hg] e CW1 ([facility]) Diastolic blood pressure 63 mm[Hg] 63 mm[Hg] eCW1 ([facility]) Body weight 247 [lb_av] 247 [lb_av] eCW1 ([facility]) Body weight kg eCW1 ([facility]) Body height [in_i] eCW1 ([facility]) Body mass index (BMI) [Ratio] 42.39 kg/m2 42.39 kg/m2 eCW1 ([facility]) Heart rate 74 /min 74 /min eCW1 ([facility]) Respiratory rate 18 /min 18 /min eCW1 ([facility]) Body temperature 97.8 [degF] 97.8 [degF] eCW1 ( [facility]) Systolic blood pressure 138 mm[Hg] 138 mm[Hg] e CW1 ([facility]) Diastolic blood pressure 63 mm[Hg] 63 mm[Hg] eCW1 ([facility]) Body weight kg eCW1 ([facility]) Body weight 247 [lb_av] 247 [lb_av] eCW1 ([facility]) Body temperature 98.2 [degF] 98.2 [degF] eCW1 ( [facility]) Body height [in_i] eCW1 ([facility]) Body mass index (BMI) [Ratio] 42.39 kg/m2 42.39 kg/m2 eCW1 ([facility]) Systolic blood pressure 131 mm[Hg] 131 mm[Hg] e CW1 ([facility]) Heart rate 75 /min 75 /min eCW1 ([facility]) Respiratory rate 18 /min 18 /min eCW1 ([facility]) Diastolic blood pressure 63 mm[Hg] 63 mm[Hg] eCW1 ([facility]) Body mass index (BMI) [Ratio] 42.39 kg/m2 42.39 kg/m2 eCW1 ([facility]) Body weight 247 [lb_av] 247 [lb_av] eCW1 ([facility]) Body height [in_i] eCW1 ([facility]) Systolic blood pressure 133 mm[Hg] 133 mm[Hg] e CW1 ([facility]) Diastolic blood pressure 74 mm[Hg] 74 mm[Hg] eCW1 ([facility]) Heart rate 73 /min 73 /min eCW1 ([facility]) Respiratory rate 20 /min 20 /min eCW1 ([facility]) Body temperature 97.9 [degF] 97.9 [degF] eCW1 ( [facility]) Systolic blood pressure 102 mm[Hg] 102 mm[Hg] M EDENT ([facility]) Diastolic blood pressure 60 mm[Hg] 60 mm[Hg] MEDENT ([facility]) Heart rate 79 /min 79 /min MEDENT ([facility]) Body weight 240.00 [lb_av] 240.00 [lb_av] MEDEN T ([facility]) Body height 63.5 [in_i] 63.5 [in_i] MEDENT ([facility]) 5'3.50" Body mass index (BMI) [Ratio] 41.8 kg/m2 41.8 k g/m2 MEDENT ([facility]) Heart rate 66 /min 66 /min eCW1 ([facility]) Body weight 247 [lb_av] 247 [lb_av] eCW1 ([facility]) Body weight kg eCW1 ([facility]) Body height [in_i] eCW1 ([facility]) Body mass index (BMI) [Ratio] 42.39 kg/m2 42.39 kg/m2 eCW1 ([facility]) Respiratory rate 18 /min 18 /min eCW1 ([facility]) Body temperature 96.9 [degF] 96.9 [degF] eCW1 ( [facility]) Systolic blood pressure 133 mm[Hg] 133 mm[Hg] e CW1 ([facility]) Diastolic blood pressure 61 mm[Hg] 61 mm[Hg] eCW1 ([facility]) Body weight 247 [lb_av] 247 [lb_av] eCW1 ([facility]) Body weight kg eCW1 ([facility]) Body height [in_i] eCW1 ([facility]) Body mass index (BMI) [Ratio] 42.39 kg/m2 42.39 kg/m2 eCW1 ([facility]) Heart rate 66 /min 66 /min eCW1 ([facility]) Respiratory rate 18 /min 18 /min eCW1 ([facility]) Body temperature 96.9 [degF] 96.9 [degF] eCW1 ( [facility]) Systolic blood pressure 133 mm[Hg] 133 mm[Hg] e CW1 ([facility]) Diastolic blood pressure 61 mm[Hg] 61 mm[Hg] eCW1 ([facility]) Body weight 247 [lb_av] 247 [lb_av] eCW1 ([facility]) Body weight kg eCW1 ([facility]) Body height [in_i] eCW1 ([facility]) Body mass index (BMI) [Ratio] 42.39 kg/m2 42.39 kg/m2 eCW1 ([facility]) Heart rate 68 /min 68 /min eCW1 ([facility]) Respiratory rate 18 /min 18 /min eCW1 ([facility]) Body temperature 97.5 [degF] 97.5 [degF] eCW1 ( [facility]) Systolic blood pressure 137 mm[Hg] 137 mm[Hg] e CW1 ([facility]) Diastolic blood pressure 65 mm[Hg] 65 mm[Hg] eCW1 ([facility]) Body weight 247 [lb_av] 247 [lb_av] eCW1 ([facility]) Body weight kg eCW1 ([facility]) Body height [in_i] eCW1 ([facility]) Body mass index (BMI) [Ratio] 42.39 kg/m2 42.39 kg/m2 eCW1 ([facility]) Heart rate 67 /min 67 /min eCW1 ([facility]) Respiratory rate 18 /min 18 /min eCW1 ([facility]) Body temperature 98.1 [degF] 98.1 [degF] eCW1 ( [facility]) Systolic blood pressure 133 mm[Hg] 133 mm[Hg] e CW1 ([facility]) Diastolic blood pressure 64 mm[Hg] 64 mm[Hg] eCW1 ([facility]) Body weight 247 [lb_av] 247 [lb_av] eCW1 ([facility]) Body height [in_i] eCW1 ([facility]) Body temperature 99 [degF] 99 [degF] eCW1 ([facility]) Systolic blood pressure 140 mm[Hg] 140 mm[Hg] e CW1 ([facility]) Diastolic blood pressure 63 mm[Hg] 63 mm[Hg] eCW1 ([facility]) Body mass index (BMI) [Ratio] 42.39 kg/m2 42.39 kg/m2 eCW1 ([facility]) Heart rate 74 /min 74 /min eCW1 ([facility]) Respiratory rate 18 /min 18 /min eCW1 ([facility]) Body weight 247 [lb_av] 247 [lb_av] eCW1 ([facility]) Body weight kg eCW1 ([facility]) Body height [in_i] eCW1 ([facility]) Body mass index (BMI) [Ratio] 42.39 kg/m2 42.39 kg/m2 eCW1 ([facility]) Heart rate 77 /min 77 /min eCW1 ([facility]) Respiratory rate 18 /min 18 /min eCW1 ([facility]) Body temperature 97.9 [degF] 97.9 [degF] eCW1 ( [facility]) Systolic blood pressure 134 mm[Hg] 134 mm[Hg] e CW1 ([facility]) Diastolic blood pressure 68 mm[Hg] 68 mm[Hg] eCW1 ([facility]) Body weight 247 [lb_av] 247 [lb_av] eCW1 ([facility]) Body weight kg eCW1 ([facility]) Body height [in_i] eCW1 ([facility]) Body mass index (BMI) [Ratio] 42.39 kg/m2 42.39 kg/m2 eCW1 ([facility]) Heart rate 72 /min 72 /min eCW1 ([facility]) Respiratory rate 18 /min 18 /min eCW1 ([facility]) Body temperature 98.1 [degF] 98.1 [degF] eCW1 ( [facility]) Systolic blood pressure 128 mm[Hg] 128 mm[Hg] e CW1 ([facility]) Diastolic blood pressure 61 mm[Hg] 61 mm[Hg] eCW1 ([facility]) Body weight 247 [lb_av] 247 [lb_av] eCW1 ([facility]) Body weight kg eCW1 ([facility]) Body height [in_i] eCW1 ([facility]) Body mass index (BMI) [Ratio] 42.39 kg/m2 42.39 kg/m2 eCW1 ([facility]) Heart rate 76 /min 76 /min eCW1 ([facility]) Respiratory rate 18 /min 18 /min eCW1 ([facility]) Body temperature 98.1 [degF] 98.1 [degF] eCW1 ( [facility]) Systolic blood pressure 142 mm[Hg] 142 mm[Hg] e CW1 ([facility]) Diastolic blood pressure 65 mm[Hg] 65 mm[Hg] eCW1 ([facility]) Body weight 247 [lb_av] 247 [lb_av] eCW1 ([facility]) Body height [in_i] eCW1 ([facility]) Body weight kg eCW1 ([facility]) Heart rate 76 /min 76 /min eCW1 ([facility]) Body mass index (BMI) [Ratio] 42.39 kg/m2 42.39 kg/m2 eCW1 ([facility]) Respiratory rate 18 /min 18 /min eCW1 ([facility]) Body temperature 98.1 [degF] 98.1 [degF] eCW1 ( [facility]) Systolic blood pressure 142 mm[Hg] 142 mm[Hg] e CW1 ([facility]) Diastolic blood pressure 65 mm[Hg] 65 mm[Hg] eCW1 ([facility]) Body weight 247 [lb_av] 247 [lb_av] eCW1 ([facility]) Body height [in_i] eCW1 ([facility]) Body mass index (BMI) [Ratio] 42.39 kg/m2 42.39 kg/m2 eCW1 ([facility]) Heart rate 70 /min 70 /min eCW1 ([facility]) Respiratory rate 16 /min 16 /min eCW1 ([facility]) Body temperature 98.8 [degF] 98.8 [degF] eCW1 ( [facility]) Systolic blood pressure 138 mm[Hg] 138 mm[Hg] e CW1 ([facility]) Diastolic blood pressure 63 mm[Hg] 63 mm[Hg] eCW1 ([facility]) Body weight 247 [lb_av] 247 [lb_av] eCW1 ([facility]) Body weight kg eCW1 ([facility]) Body height [in_i] eCW1 ([facility]) Body mass index (BMI) [Ratio] 42.39 kg/m2 42.39 kg/m2 eCW1 ([facility]) Heart rate 70 /min 70 /min eCW1 ([facility]) Respiratory rate 18 /min 18 /min eCW1 ([facility]) Body temperature 97.4 [degF] 97.4 [degF] eCW1 ( [facility]) Systolic blood pressure 133 mm[Hg] 133 mm[Hg] e CW1 ([facility]) Diastolic blood pressure 75 mm[Hg] 75 mm[Hg] eCW1 ([facility]) Body weight 247 [lb_av] 247 [lb_av] eCW1 ([facility]) Body weight kg eCW1 ([facility]) Body height [in_i] eCW1 ([facility]) Body mass index (BMI) [Ratio] 42.39 kg/m2 42.39 kg/m2 eCW1 ([facility]) Heart rate 72 /min 72 /min eCW1 ([facility]) Respiratory rate 18 /min 18 /min eCW1 ([facility]) Body temperature 98.2 [degF] 98.2 [degF] eCW1 ( [facility]) Systolic blood pressure 135 mm[Hg] 135 mm[Hg] e CW1 ([facility]) Diastolic blood pressure 73 mm[Hg] 73 mm[Hg] eCW1 ([facility]) Body temperature 98.3 [degF] 98.3 [degF] eCW1 ( [facility]) Body weight 247 [lb_av] 247 [lb_av] eCW1 ([facility]) Systolic blood pressure 127 mm[Hg] 127 mm[Hg] e CW1 ([facility]) Diastolic blood pressure 60 mm[Hg] 60 mm[Hg] eCW1 ([facility]) Body weight kg eCW1 ([facility]) Body height [in_i] eCW1 ([facility]) Body mass index (BMI) [Ratio] 42.39 kg/m2 42.39 kg/m2 eCW1 ([facility]) Heart rate 78 /min 78 /min eCW1 ([facility]) Respiratory rate 17 /min 17 /min eCW1 ([facility]) Body weight 247 [lb_av] 247 [lb_av] eCW1 ([facility]) Body weight kg eCW1 ([facility]) Body height [in_i] eCW1 ([facility]) Body mass index (BMI) [Ratio] 42.39 kg/m2 42.39 kg/m2 eCW1 ([facility]) Heart rate 78 /min 78 /min eCW1 ([facility]) Respiratory rate 17 /min 17 /min eCW1 ([facility]) Body temperature 98.3 [degF] 98.3 [degF] eCW1 ( [facility]) Systolic blood pressure 127 mm[Hg] 127 mm[Hg] e CW1 ([facility]) Diastolic blood pressure 60 mm[Hg] 60 mm[Hg] eCW1 ([facility]) Body weight 247 [lb_av] 247 [lb_av] eCW1 ([facility]) Body weight kg eCW1 ([facility]) Body height [in_i] eCW1 ([facility]) Body mass index (BMI) [Ratio] 42.39 kg/m2 42.39 kg/m2 eCW1 ([facility]) Heart rate 69 /min 69 /min eCW1 ([facility]) Respiratory rate 18 /min 18 /min eCW1 ([facility]) Body temperature 98.7 [degF] 98.7 [degF] [facility] [facility] Systolic blood pressure 115 mm[Hg] 115 mm[Hg] e CW1 ([facility]) Diastolic blood pressure 55 mm[Hg] 55 mm[Hg] eCW1 ([facility]) Body weight 247 [lb_av] 247 [lb_av] eCW1 [facility] Body weight kg eCW1 ([facility]) Body height [in_i] eCW1 ([facility]) Body mass index (BMI) [Ratio] 42.39 kg/m2 42.39 kg/m2 W1 ([facility]) Heart rate 66 /min 66 /min eCW1 ([facility]) Respiratory rate 18 /min 18 /min eCW1 ([facility]) Body temperature 98.1 [degF] 98.1 [degF] eCW1 ( [facility]) Systolic blood pressure 144 mm[Hg] 144 mm[Hg] e CW1 ([facility]) Diastolic blood pressure 67 mm[Hg] 67 mm[Hg] eCW1 ([facility]) Body weight 247 [lb_av] 247 [lb_av] eCW1 ([facility]) Body weight kg eCW1 ([facility]) Body height [in_i] eCW1 ([facility]) Body mass index (BMI) [Ratio] 42.39 kg/m2 42.39 kg/m2 eCW1 ([facility]) Heart rate 69 /min 69 /min eCW1 ([facility]) Respiratory rate 16 /min 16 /min eCW1 ([facility]) Body temperature 96.9 [degF] 96.9 [degF] eCW1 ( [facility]) Systolic blood pressure 138 mm[Hg] 138 mm[Hg] e CW1 ([facility]) Diastolic blood pressure 65 mm[Hg] 65 mm[Hg] eCW1 ([facility]) Body weight 247 [lb_av] 247 [lb_av] eCW1 ([facility]) Body weight kg eCW1 ([facility]) Body height [in_i] eCW1 ([facility]) Body mass index (BMI) [Ratio] 42.39 kg/m2 42.39 kg/m2 eCW1 ([facility]) Heart rate 64 /min 64 /min eCW1 ([facility]) Respiratory rate 18 /min 18 /min eCW1 ([facility]) Body temperature 98.1 [degF] 98.1 [degF] eCW1 ( [facility]) Systolic blood pressure 123 mm[Hg] 123 mm[Hg] e CW1 ([facility]) Diastolic blood pressure 62 mm[Hg] 62 mm[Hg] eCW1 ([facility]) Body weight 247 [lb_av] 247 [lb_av] eCW1 ([facility]) Body weight kg eCW1 ([facility]) Body height [in_i] eCW1 ([facility]) Body mass index (BMI) [Ratio] 42.39 kg/m2 42.39 kg/m2 eCW1 ([facility]) Heart rate 71 /min 71 /min eCW1 ([facility]) Respiratory rate 20 /min 20 /min eCW1 ([facility]) Body temperature 98.3 [degF] 98.3 [degF] eCW1 ( [facility]) Systolic blood pressure 118 mm[Hg] 118 mm[Hg] e CW1 ([facility]) Diastolic blood pressure 53 mm[Hg] 53 mm[Hg] eCW1 ([facility]) Body weight 247 [lb_av] 247 [lb_av] eCW1 ([facility]) Heart rate 71 /min 71 /min eCW1 ([facility]) Body weight kg eCW1 ([facility]) Respiratory rate 20 /min 20 /min eCW1 ([facility]) Body temperature 98.3 [degF] 98.3 [degF] eCW1 ( [facility]) Body height [in_i] eCW1 ([facility]) Systolic blood pressure 118 mm[Hg] 118 mm[Hg] e CW1 ([facility]) Diastolic blood pressure 53 mm[Hg] 53 mm[Hg] eCW1 ([facility]) Body mass index (BMI) [Ratio] 42.39 kg/m2 42.39 kg/m2 eCW1 ([facility]) Body weight 247 [lb_av] 247 [lb_av] eCW1 ([facility]) Body weight kg eCW1 ([facility]) Body height [in_i] eCW1 ([facility]) Body mass index (BMI) [Ratio] 42.39 kg/m2 42.39 kg/m2 eCW1 ([facility]) Heart rate 68 /min 68 /min eCW1 ([facility]) Respiratory rate 18 /min 18 /min eCW1 ([facility]) Body temperature 97 [degF] 97 [degF] eCW1 ([facility]) Systolic blood pressure 112 mm[Hg] 112 mm[Hg] e CW1 ([facility]) Diastolic blood pressure 57 mm[Hg] 57 mm[Hg] eCW1 ([facility]) Body weight 247 [lb_av] 247 [lb_av] eCW1 ([facility]) Body weight kg eCW1 ([facility]) Body height [in_i] eCW1 ([facility]) Body mass index (BMI) [Ratio] 42.39 kg/m2 42.39 kg/m2 eCW1 ([facility]) Heart rate 69 /min 69 /min eCW1 ([facility]) Respiratory rate 18 /min 18 /min eCW1 ([facility]) Body temperature 97.9 [degF] 97.9 [degF] eCW1 ( [facility]) Systolic blood pressure 113 mm[Hg] 113 mm[Hg] e CW1 ([facility]) Diastolic blood pressure 56 mm[Hg] 56 mm[Hg] eCW1 ([facility]) Body weight 247 [lb_av] 247 [lb_av] eCW1 ([facility]) Body weight kg eCW1 ([facility]) Body height [in_i] eCW1 ([facility]) Body mass index (BMI) [Ratio] 42.39 kg/m2 42.39 kg/m2 eCW1 ([facility]) Heart rate 78 /min 78 /min eCW1 ([facility]) Respiratory rate 18 /min 18 /min eCW1 ([facility]) Body temperature 98.7 [degF] 98.7 [degF] eCW1 ( [facility]) Systolic blood pressure 135 mm[Hg] 135 mm[Hg] e CW1 ([facility]) Diastolic blood pressure 61 mm[Hg] 61 mm[Hg] eCW1 ([facility]) Body weight 247 [lb_av] 247 [lb_av] eCW1 ([facility]) Body weight kg eCW1 ([facility]) Body height [in_i] eCW1 ([facility]) Body mass index (BMI) [Ratio] 42.39 kg/m2 42.39 kg/m2 eCW1 ([facility]) Heart rate 71 /min 71 /min eCW1 ([facility]) Respiratory rate 16 /min 16 /min eCW1 ([facility]) Body temperature 98.3 [degF] 98.3 [degF] eCW1 ( [facility]) Systolic blood pressure 113 mm[Hg] 113 mm[Hg] e CW1 ([facility]) Diastolic blood pressure 53 mm[Hg] 53 mm[Hg] eCW1 ([facility]) Body weight 247 [lb_av] 247 [lb_av] eCW1 ([facility]) Body weight kg eCW1 ([facility]) Body height [in_i] eCW1 ([facility]) Body mass index (BMI) [Ratio] 42.39 kg/m2 42.39 kg/m2 eCW1 ([facility]) Heart rate 76 /min 76 /min eCW1 ([facility]) Respiratory rate 18 /min 18 /min eCW1 ([facility]) Body temperature 98.1 [degF] 98.1 [degF] eCW1 ( [facility]) Systolic blood pressure 132 mm[Hg] 132 mm[Hg] e CW1 ([facility]) Diastolic blood pressure 64 mm[Hg] 64 mm[Hg] eCW1 ([facility]) Body weight 247 [lb_av] 247 [lb_av] eCW1 ([facility]) Body weight kg eCW1 ([facility]) Body height [in_i] eCW1 ([facility]) Body mass index (BMI) [Ratio] 42.39 kg/m2 42.39 kg/m2 eCW1 ([facility]) Heart rate 76 /min 76 /min eCW1 ([facility]) Respiratory rate 18 /min 18 /min eCW1 ([facility]) Body temperature 98.1 [degF] 98.1 [degF] eCW1 ( [facility]) Systolic blood pressure 132 mm[Hg] 132 mm[Hg] e CW1 ([facility]) Diastolic blood pressure 64 mm[Hg] 64 mm[Hg] eCW1 ([facility]) Body weight 247 [lb_av] 247 [lb_av] eCW1 ([facility]) Body weight kg eCW1 ([facility]) Body height [in_i] eCW1 ([facility]) Body mass index (BMI) [Ratio] 42.39 kg/m2 42.39 kg/m2 eCW1 ([facility]) Heart rate 74 /min 74 /min eCW1 ([facility]) Respiratory rate 18 /min 18 /min eCW1 ([facility]) Body temperature 97.8 [degF] 97.8 [degF] eCW1 ( [facility]) Systolic blood pressure 138 mm[Hg] 138 mm[Hg] e CW1 ([facility]) Diastolic blood pressure 65 mm[Hg] 65 mm[Hg] eCW1 ([facility]) Body weight 247 [lb_av] 247 [lb_av] eCW1 ([facility]) Body weight kg eCW1 ([facility]) Body height [in_i] eCW1 ([facility]) Body mass index (BMI) [Ratio] 42.39 kg/m2 42.39 kg/m2 eCW1 ([facility]) Heart rate 71 /min 71 /min eCW1 ([facility]) Respiratory rate 18 /min 18 /min eCW1 ([facility]) Body temperature 98.2 [degF] 98.2 [degF] eCW1 ( [facility]) Systolic blood pressure 140 mm[Hg] 140 mm[Hg] e CW1 ([facility]) Diastolic blood pressure 63 mm[Hg] 63 mm[Hg] eCW1 ([facility]) Body weight 247 [lb_av] 247 [lb_av] eCW1 ([facility]) Body weight kg eCW1 ([facility]) Body height [in_i] eCW1 ([facility]) Body mass index (BMI) [Ratio] 42.39 kg/m2 42.39 kg/m2 eCW1 ([facility]) Heart rate 71 /min 71 /min eCW1 ([facility]) Respiratory rate 18 /min 18 /min eCW1 ([facility]) Body temperature 98.2 [degF] 98.2 [degF] eCW1 ( [facility]) Systolic blood pressure 140 mm[Hg] 140 mm[Hg] e CW1 ([facility]) Diastolic blood pressure 63 mm[Hg] 63 mm[Hg] eCW1 ([facility]) Body weight 247 [lb_av] 247 [lb_av] eCW1 ([facility]) Body height [in_i] eCW1 ([facility]) Body mass index (BMI) [Ratio] 42.39 kg/m2 42.39 kg/m2 eCW1 ([facility]) Heart rate 74 /min 74 /min eCW1 ([facility]) Respiratory rate 18 /min 18 /min eCW1 ([facility]) Body temperature 97.9 [degF] 97.9 [degF] eCW1 ( [facility]) Systolic blood pressure 142 mm[Hg] 142 mm[Hg] e CW1 ([facility]) Diastolic blood pressure 66 mm[Hg] 66 mm[Hg] eCW1 ([facility]) Body temperature 97 [degF] 97 [degF] eCW1 ([facility]) Body weight 247 [lb_av] 247 [lb_av] eCW1 ([facility]) Systolic blood pressure 133 mm[Hg] 133 mm[Hg] e CW1 ([facility]) Body weight kg eCW1 ([facility]) Diastolic blood pressure 63 mm[Hg] 63 mm[Hg] eCW1 ([facility]) Body height [in_i] eCW1 ([facility]) Body mass index (BMI) [Ratio] 42.39 kg/m2 42.39 kg/m2 eCW1 ([facility]) Heart rate 84 /min 84 /min eCW1 ([facility]) Respiratory rate 19 /min 19 /min eCW1 ([facility]) Oxygen saturation in Arterial blood by Pulse oximetry 96 % 96 % MEDENT ([facility]) RM Air Systolic blood pressure 106 mm[Hg] 106 mm[Hg] M EDENT ([facility]) Diastolic blood pressure 60 mm[Hg] 60 mm[Hg] MEDENT ([facility]) Heart rate 74 /min 74 /min MEDENT ([facility]) Body weight 247 [lb_av] 247 [lb_av] eCW1 ([facility]) Body weight kg eCW1 ([facility]) Body height [in_i] eCW1 ([facility]) Body mass index (BMI) [Ratio] 42.39 kg/m2 42.39 kg/m2 eCW1 ([facility]) Heart rate 68 /min 68 /min eCW1 ([facility]) Respiratory rate 18 /min 18 /min eCW1 ([facility]) Body temperature 97.3 [degF] 97.3 [degF] eCW1 ( [facility]) Systolic blood pressure 130 mm[Hg] 130 mm[Hg] e CW1 ([facility]) Diastolic blood pressure 60 mm[Hg] 60 mm[Hg] eCW1 ([facility]) Systolic blood pressure 132 mm[Hg] 132 mm[Hg] Regi EDSARAH ([facility] Body height 64 [in_i] 64 [in_i] MEDSARAH ([facility] 5'4" Body weight 245.00 [lb_av] 245.00 [lb_av] MEDEN T ([facility] Diastolic blood pressure 62 mm[Hg] 62 mm[Hg] MEDENT ([facility] Heart rate 87 /min 87 /min MEDENT ([facility] Body mass index (BMI) [Ratio] 42.0 kg/m2 42.0 k g/m2 MEDENT ([facility] Body mass index (BMI) [Ratio] 42.39 kg/m2 42.39 kg/m2 eCW1 ([facility]) Body weight 247 [lb_av] 247 [lb_av] eCW1 ([facility]) Body weight kg eCW1 ([facility]) Body height [in_i] eCW1 ([facility]) Heart rate 90 /min 90 /min eCW1 ([facility]) Respiratory rate 20 /min 20 /min eCW1 ([facility]) Body temperature 97.2 [degF] 97.2 [degF] eCW1 ( [facility]) Systolic blood pressure 122 mm[Hg] 122 mm[Hg] e CW1 ([facility]) Diastolic blood pressure 58 mm[Hg] 58 mm[Hg] eCW1 ([facility]) Body weight 227.00 [lb_av] 227.00 [lb_av] MEDEN T ([facility] Body height 64 [in_i] 64 [in_i] MEDENT [facility] 5'4" Diastolic blood pressure 78 mm[Hg] 78 mm[Hg] MEDENT ([facility] Systolic blood pressure 118 mm[Hg] 118 mm[Hg] M EDENT ([facility] Heart rate 72 /min 72 /min MEDENT ([facility] Body mass index (BMI) [Ratio] 39.0 kg/m2 39.0 k g/m2 MEDENT ([facility] Body temperature 97.2 [degF] 97.2 [degF] eCW1 ( [facility]) Body weight 227 [lb_av] 227 [lb_av] eCW1 ([facility]) Body weight kg eCW1 ([facility]) Body height [in_i] eCW1 ([facility]) Body mass index (BMI) [Ratio] 38.96 kg/m2 38.96 kg/m2 eCW1 ([facility]) Heart rate 72 /min 72 /min eCW1 ([facility]) Respiratory rate 18 /min 18 /min eCW1 ([facility]) Systolic blood pressure 177 mm[Hg] 177 mm[Hg] e CW1 ([facility]) Diastolic blood pressure 79 mm[Hg] 79 mm[Hg] eCW1 ([facility]) Systolic blood pressure 137 mm[Hg] 137 mm[Hg] M EDENT ([facility], ) Diastolic blood pressure 73 mm[Hg] 73 mm[Hg] MEDENT ([facility], ) Body height 64 [in_i] 64 [in_i] MEDENT ([facility], ) 5'4" Body weight 245.00 [lb_av] 245.00 [lb_av] MEDEN T ([facility]) Body mass index (BMI) [Ratio] 42.0 kg/m2 42.0 k g/m2 [facility] [place] body weight 120 [lb_av] 120 [lb_av] MEDEN T ([facility]) Body weight 111.132 kg 111.132 kg [facility] Body surface area Derived from formula 2.13 m2 2.13 m2 LEAH ([facility], ) Body weight 227 [lb_av] 227 [lb_av] eCW1 ([facility]) Body weight kg eCW1 ([facility]) Body height [in_i] eCW1 ([facility]) Body mass index (BMI) [Ratio] 38.96 kg/m2 38.96 kg/m2 eCW1 ([facility]) Heart rate 90 /min 90 /min eCW1 ([facility]) Respiratory rate 18 /min 18 /min eCW1 ([facility]) Body temperature 97.3 [degF] 97.3 [degF] eCW1 ( [facility]) Systolic blood pressure 117 mm[Hg] 117 mm[Hg] e CW1 ([facility]) Diastolic blood pressure 56 mm[Hg] 56 mm[Hg] eCW1 ([facility]) Body weight 242.00 [lb_av] 242.00 [lb_av] VILLA T ([facility]) Body weight kg eCW1 ([facility]) Body weight 227 [lb_av] 227 [lb_av] eCW1 ([facility]) Body height [in_i] eCW1 ([facility]) Body mass index (BMI) [Ratio] 38.96 kg/m2 38.96 kg/m2 eCW1 ([facility]) Heart rate 75 /min 75 /min eCW1 ([facility]) Respiratory rate 17 /min 17 /min eCW1 ([facility]) Body temperature 97.7 [degF] 97.7 [degF] eCW1 ( [facility]) Systolic blood pressure 104 mm[Hg] 104 mm[Hg] e CW1 ([facility]) Diastolic blood pressure 51 mm[Hg] 51 mm[Hg] eCW1 ([facility]) Body weight 227 [lb_av] 227 [lb_av] eCW1 ([facility]) Body weight kg eCW1 ([facility]) Body height [in_i] eCW1 ([facility]) Body mass index (BMI) [Ratio] 38.96 kg/m2 38.96 kg/m2 eCW1 ([facility]) Heart rate 77 /min 77 /min eCW1 ([facility]) Respiratory rate 18 /min 18 /min eCW1 ([facility]) Body temperature 97.5 [degF] 97.5 [degF] eCW1 ( [facility]) Diastolic blood pressure 63 mm[Hg] 63 mm[Hg] eCW1 ([facility]) Systolic blood pressure 131 mm[Hg] 131 mm[Hg] e CW1 ([facility]) Body weight 227 [lb_av] 227 [lb_av] eCW1 ([facility]) Body weight kg eCW1 ([facility]) Body height [in_i] eCW1 ([facility]) Body mass index (BMI) [Ratio] 38.96 kg/m2 38.96 kg/m2 eCW1 ([facility]) Heart rate 73 /min 73 /min eCW1 ([facility]) Respiratory rate 19 /min 19 /min eCW1 ([facility]) Body temperature 96.5 [degF] 96.5 [degF] eCW1 ( [facility]) Systolic blood pressure 122 mm[Hg] 122 mm[Hg] e CW1 ([facility]) Diastolic blood pressure 56 mm[Hg] 56 mm[Hg] eCW1 ([facility]) Body weight 243.00 [lb_av] 243.00 [lb_av] MEDEN T ([facility]) Body weight 227 [lb_av] 227 [lb_av] eCW1 ([facility]) Body weight kg eCW1 ([facility]) Body height [in_i] eCW1 ([facility]) Body mass index (BMI) [Ratio] 38.96 kg/m2 38.96 kg/m2 eCW1 ([facility]) Heart rate 90 /min 90 /min eCW1 ([facility]) Respiratory rate 22 /min 22 /min eCW1 ([facility]) Body temperature 98.8 [degF] 98.8 [degF] eCW1 ( [facility]) Systolic blood pressure 136 mm[Hg] 136 mm[Hg] e CW1 ([facility]) Diastolic blood pressure 62 mm[Hg] 62 mm[Hg] eCW1 ([facility]) Systolic blood pressure 114 mm[Hg] 114 mm[Hg] M EDENT ([facility]) Diastolic blood pressure 60 mm[Hg] 60 mm[Hg] MEDENT ([facility]) Heart rate 73 /min 73 /min MEDENT ([facility]) Body height 63.5 [in_i] 63.5 [in_i] MEDENT ([facility]) 5'3.50" Body weight 243.00 [lb_av] 243.00 [lb_av] MEDEN T ([facility]) Body mass index (BMI) [Ratio] 42.4 kg/m2 42.4 k g/m2 MEDENT ([facility]) Body weight 257.00 [lb_av] 257.00 [lb_av] MEDEN T ([facility]) Respiratory rate 16 /min 16 /min eCW1 ([facility]) Body weight 241 [lb_av] 241 [lb_av] eCW1 ([facility]) Body temperature 97.2 [degF] 97.2 [degF] eCW1 ( [facility]) Body weight kg eCW1 ([facility]) Body height [in_i] eCW1 ([facility]) Systolic blood pressure 125 mm[Hg] 125 mm[Hg] e CW1 ([facility]) Body mass index (BMI) [Ratio] 41.36 kg/m2 41.36 kg/m2 eCW1 ([facility]) Heart rate 81 /min 81 /min eCW1 ([facility]) Diastolic blood pressure 65 mm[Hg] 65 mm[Hg] eCW1 ([facility]) Body weight 241 [lb_av] 241 [lb_av] eCW1 ([facility]) Body weight kg eCW1 ([facility]) Body height [in_i] eCW1 ([facility]) Body mass index (BMI) [Ratio] 41.36 kg/m2 41.36 kg/m2 eCW1 ([facility]) Heart rate 79 /min 79 /min eCW1 ([facility]) Respiratory rate 22 /min 22 /min eCW1 ([facility]) Body temperature 97.8 [degF] 97.8 [degF] eCW1 ( [facility]) Systolic blood pressure 123 mm[Hg] 123 mm[Hg] e CW1 ([facility]) Diastolic blood pressure 58 mm[Hg] 58 mm[Hg] eCW1 ([facility]) Body weight 257.00 [lb_av] 257.00 [lb_av] MEDEN T ([facility]) Body weight 257.00 [lb_av] 257.00 [lb_av] MEDEN T ([facility]) Heart rate 80 /min 80 /min MEDENT ([facility], ) Systolic blood pressure 110 mm[Hg] 110 mm[Hg] M EDENT ([facility], ) Diastolic blood pressure 70 mm[Hg] 70 mm[Hg] MEDENT ([facility], ) Respiratory rate 20 /min 20 /min MEDENT ( [facility], ) Systolic blood pressure 120 mm[Hg] 120 mm[Hg] M EDENT ([facility]) Body weight 257.25 [lb_av] 257.25 [lb_av] MEDEN T ([facility]) Body mass index (BMI) [Ratio] 44.9 kg/m2 44.9 k g/m2 MEDENT ([facility]) Body height 63.5 [in_i] 63.5 [in_i] MEDENT ([facility]) 5'3.50" Diastolic blood pressure 70 mm[Hg] 70 mm[Hg] MEDENT ([facility]) Systolic blood pressure 110 mm[Hg] 110 mm[Hg] M EDENT ([facility], ) Diastolic blood pressure 70 mm[Hg] 70 mm[Hg] MEDENT ([facility], ) Heart rate 64 /min 64 /min MEDENT ([facility], ) Respiratory rate 16 /min 16 /min MEDENT ( [facility], ) Patient Treatment Plan of Care Planned Activity Planned Date Details Description Data Source (s) Clindamycin 150 MG Oral Capsule 08/11/2020 12:00:00 AM EST eCW1 ([facility]) Clindamycin 150 MG Oral Capsule 08/11/2020 12:00:00 AM EST eCW1 ([facility])
[2021-06-02 18:51] LABS: ERYTHROCYTE SEDIMENTATION RATE 8 mm/hr (0-30)
[2021-06-02] MEDS ORDERED: VANCOMYCIN HCL 1,000 MG, VIAL MATE ADAPTER 1 EACH in NS 250 ML IV ONE ×3 (19:00→22:00)
--- NOTE | 2021-06-02 19:21 | HPEPDOC ---
[facility] Medical History & Physical Date of Admission Jun 02, 2021 Date of Service: Jun 02, 2021 Attending Physician: KELSIE RODRIGUEZ MD History and Physical CHIEF COMPLAINT: nausea and vomiting HISTORY OF PRESENT ILLNESS: Ms. Leatha Moreno is a 65 yo F with a PMH of IDDMT2, HTN, PVD requiring metatarsal amputations, GERD, DVT with PE presents with one day history of nausea with vomiting. Pt states she was nauseous this morning and was not able to keep her breakfast down causing her to vomit several times. Pt is unable to recall the volume or describe the vomit as her cataracts prevent her from seeing clearly. Pt's was concerned about her and encouraged her to go to the ED. Pt states she usually has a post-nasal drip for many years that causes her to have a chronic cough which causes her to vomit about 1x a month. Of note, pt presented to the ED on insistence by her for similar presentations. While in the ED, pt was found to have a fever of 102 and tachycardia in the 100's with leukocytosis. Pt was also found to have an elevated BNP with trop of 0.58. Pt denies any fever, chills, fatigue, headache, sore throat, cough, SOB, wheezing, chest pain, palpitations, abdominal pain, diarrhea, constipation, muscle weakness. On examination, pt was found to have erythema of the right LLE that is warm to the touch with clear demarcations. Lines were drawn demarcating the erythema. Imaging of CXR showed global cardiomegaly and possible mild interstitial edema. EKG was performed. Pt was given IVF, Tylenol, and started on IV Zosyn. Pt admitted to the hospital for sepsis 2/2 possible cellulitis of left LE. PAST MEDICAL HISTORY: 1. IDDMT2. 2. HTN. 3. PVD. 4. GERD 5. Hx of DVT and PE 6. Chronic heel ulcers PAST SURGICAL HISTORY: 1. Cholecystectomy 2. Appendectomy. 3. Hysterectomy due to fibroids. 4. Cataract b/l 5. Right hip fracture requiring replacement 6. Metatarsal amputation SOCIAL HISTORY: Marital status: . Resides in: Home with Children: Daughter Tobacco use: Never ETOH: Never Illicit drug use: Never FAMILY HISTORY: HTN Asthma DM2 ALLERGIES: Please see below. REVIEW OF SYSTEMS: CONSTITUTIONAL: Denies fever, chills, fatigue. HEENT: Denies sore throat, neck stiffness, headache. CARDIOVASCULAR: Denies palpitations, chest pain, dizziness. RESPIRATORY: Denies SOB, cough, wheeze. GASTROINTESTINAL: Denies abdominal pain, diarrhea, constipation. Admits to nausea and vomiting. GENITOURINARY: Denies dysuria, polyuria. SKIN: Denies any rash. MUSCULOSKELETAL: Denies muscle weakness, back pain. NEUROLOGICAL: Denies numbness, tingling, neuropathy. HOME MEDICATIONS: Please see below. PHYSICAL EXAMINATION: VITAL SIGNS: Temperature 102.5, pulse 107, respiratory rate 16, blood pressure 144/68, pulse oximetry 85% on room air. GENERAL APPEARANCE: Obese female in mild discomfort sitting up in bed wearing a nasal canula. HEENT: Mouth moist, neck supple, no lymphadenopathy. CARDIOVASCULAR: S1S2, RRR. No murmurs, gallops, rub. LUNGS: CTA b/l. No wheezing, rales, crackles. ABDOMEN: Soft non-tender, no mass or guarding. No CVA tenderness MUSCULOSKELETAL: LE tender to palpation. Full ROM in UE with limited ROM in LE. EXTREMITIES: Mild pitting edema in LE b/l. Warm and erythematous rash in right LE above the ankle but below the knee on the anterolateral surface. Demarcations marked. Pedal pulses 2+. Patient is also noted to have bilateral heel ulcerations and a wound on the left metatarsal stump. All 3 wounds appear clean with serous drainage and are dressed in clean dressing. NEUROLOGICAL: Alert. Sensations intact. PSYCHIATRIC: Mood and affect normal. LABORATORY DATA: See below. IMAGING: CXR 06/02 - Global cardiomegaly and possible mild interstitial edema. CT Chest 06/[address] Abd/pel 06/02 pending MICROBIOLOGY: Please see below. ASSESSMENT: Ms. Leatha Moreno is a 65 yo F with a PMH of IDDMT2, HTN, PVD requiring metatarsal amputations, GERD, DVT with PE presents with one day history of nausea with vomiting and was found to have a fever, leukocytosis, with erythematous rash in lower right leg. Pt admitted to the hospital for sepsis 2/2 possible cellulitis of left LE. PLAN: 1. Sepsis - 3/4 SIRS criteria met with fever, leukocytosis, and tachycardia -Likely source cellulitis of right lower leg -UA pending -Urine rand Na, Cr, Urea -BCx pending -Inflammatory labs ordered. CRP, procal, ESR -Lactic acid 1.5. Will repeat lactic acid -s/p Tylenol and IV Zosyn. Will add IV Vanc. -CT abd/pel ordered -c/t IVF NS; will reduce infusion (not 30cc/kg) based on troponin elevation / enlarged heart 2. Elevated Trop and BNP -Likely due to increased cardiac demand 2/2 infection -Trop 0.58. Trend trop to peak -BNP 6375 -Echo ordered -CT Chest ordered -Daily weights -Monitor on tele -Cardio consult (Dr. Echavarria), appreciate recommendations 3. N/V -Zofran PRN 4. IDDMT2 -Start Detemir, Lispro -c/t POC gluc 5. Multiple ulcerations on the lower extremities Patient follows outpatient with Dr. Ledbetter weekly. She states her last appointment was 1 week ago. None of these wounds appear infected on admission. DVT Ppx: home anticoagulation (med rec to be complete) Diet: Consistent carb Code status: Full Activity: OOB ad vicenta DISPOSITION: admitted inpatient to PCU pending clinical improvement Vital Signs Vital Signs Date Time Temp Pulse Resp B/P (MAP) Pulse Ox O2 Delivery O2 Flow Rate FiO2 06/02/21 17:34 101.0 06/02/21 17:00 105 18 125/56 (79) 100 Room Air 06/02/21 14:01 1.0 Laboratory Data Labs 24H Laboratory Tests 2 06/02/21 13:28: Coronavirus (COVID-19)(PCR) NEGATIVE, Influenza Type A (RT-PCR) NEGATIVE, Influenza Type B (RT-PCR) NEGATIVE, Respiratory Syncytial Virus (PCR) NEGATIVE 06/02/21 13:56: Immature Granulocyte % (Auto) 0.5, Neutrophils (%) (Auto) 91.1H, Lymphocytes (%) (Auto) 3.4L, Monocytes (%) (Auto) 4.4, Eosinophils (%) (Auto) 0.3, Basophils (%) (Auto) 0.3, Neutrophils # (Auto) 18.1H, Lymphocytes # (Auto) 0.7L, Monocytes # (Auto) 0.9H, Eosinophils # (Auto) 0.1, Basophils # (Auto) 0.1, Nucleated Red Blood Cells % (auto) 0.0, Lactic Acid Level 1.5 06/02/21 15:07: Anion Gap 6L, Glomerular Filtration Rate 37.2L, Calcium Level 8.6L, Total Bilirubin 1.9H, Direct Bilirubin 0.6H, Aspartate Amino Transf (AST/SGOT) 31, Alanine Aminotransferase (ALT/SGPT) 17, Alkaline Phosphatase 171H, Total Creatine Kinase 136, Creatine Kinase MB 6.4H, Creatine Kinase MB Relative Index 4.71H, Troponin I 0.58H, AA-Uhs-C-Type Natriuretic Peptide 6375H, Total Protein 8.0, Albumin 3.2, Albumin/Globulin Ratio 0.7L 06/02/21 15:57: Prothrombin Time 23.2H, Prothromb Time International Ratio 2.02, Activated Pa rtial Thromboplast Time 38.9H 06/02/21 16:47: Urine Color JANINE, Urine Appearance CLOUDYH, Urine pH 6.0, Urine Specific [place] 1.015, Urine Protein 1+H, Urine Glucose (UA) NEGATIVE, Urine Ketones TRACEH, Urine Blood 2+H, Urine Nitrite NEGATIVE, Urine Bilirubin NEGATIVE, Urine Urobilinogen 2.0H, Urine Leukocyte Esterase TRACEH, Urine WBC (Auto) 7H, Urine RBC (Auto) 11H, Urine Hyaline Casts (Auto) 1, Urine Bacteria (Auto) 2+H, Urine Squamous Epithelial Cells 0, Urine Mucus (Auto) SMALL, Urine Sperm (Auto) CBC/BMP Laboratory Tests 06/02/21 13:56 06/02/21 15:07 Microbiology Microbiology 06/02/21 Urine Culture, Received Pending 06/02/21 Blood Culture, Received Pending 06/02/21 Blood Culture, Received Pending Home Medications Scheduled Apixaban (Eliquis) 5 Mg Tablet, 5 MG PO BID Brimonidine Tartrate (Brimonidine Tartrate) 0.2% 5ML Drops, 1 DROP OU BID Dorzolamide HCl/Timolol Maleat (Dorzolamide-Timolol Eye Drops) 10 Ml Drops, 1 DROP OU BID Duloxetine Hcl (Duloxetine HCl) 30 Mg Capsule.dr, 30 MG PO DAILY Ferrous Gluconate (Ferrous Gluconate) 324 Mg Tablet, 324 MG PO Q2D Fexofenadine HCl (Fexofenadine HCl) 180 Mg Tablet, 180 MG PO DAILY Fluticasone Propionate (Fluticasone Propionate) 16 Gm [place].susp, 2 SPRAYS NARES DAILY Furosemide (Furosemide) 20 Mg Tablet, 20 MG PO DAILY Gabapentin (Gabapentin) 400 Mg Capsule, 400 MG PO TID Insulin Aspart (Novolog Flexpen) 100 Unit/1 Ml Insuln.pen, 16 UNITS SC TID Insulin Detemir (Levemir) 1 Units/0.01 Ml Susp, 55 UNITS SC QPM AFTER DINNER Latanoprost (Xalatan) 0.005% 2.5ML Drops, 1 DROP OU QHS Lisinopril (Lisinopril) 10 Mg Tablet, 10 MG PO DAILY Montelukast Sodium (Singulair) 10 Mg Tablet, 10 MG PO QHS Pantoprazole Sodium (Protonix) 40 Mg Tab, 40 MG PO DAILY Simvastatin (Simvastatin) 10 Mg Tablet, 5 MG PO QHS Scheduled PRN Polyvinyl Alcohol (Artificial Tears) 15 Ml Drops, 1 DROP OU BID PRN for DRY EYES Allergies Coded Allergies: codeine (Verified Adverse Reaction, Severe, COMA FOR 5 DAYS, 06/02/21) A-FIB/CHADSVASC A-FIB History Current/History of A-Fib/PAF?: No GME ATTESTATION GME ATTESTATION My faculty preceptor for this patient encounter was physically present during the encounter and was fully available. All aspects of the patient interview, examination, medical decision making process, and medical care plan development were reviewed and approved by the faculty preceptor. The faculty preceptor is aware and concurs with the plan as stated in the body of this note and will attest to such by his/her cosignature. ATTENDING NOTE I, Keslie Rodriguez, have independently examined this patient and performed my own physical exam, as well as reviewed the documentation and edited where necessary with the resident. For medical students we have performed the physical exam together and discussed medical decision making and I have verified the history. I have discussed in detail with the resident / student the findings and plan of treatment as documented by the resident / student and edited their note. I agree with their findings and treatment plan and have edited their documentation. I will continue to follow the patient during this hospital stay. CARLI PONCE OMS-4 Jun 02, 2021 18:34 CONNIE MALIK D.O. Jun 02, 2021 19:28 KELSIE RODRIGUEZ MD Jun 03, 2021 11:24
[2021-06-02] MEDS ORDERED: ELIQ5TAB PO (19:33)
[2021-06-02] MEDS ORDERED: POLYOPD OU (19:35)
[2021-06-02] MEDS ORDERED: HOME MED LIST COMPLETE! XX SCH (19:35)
--- NOTE | 2021-06-02 20:11 | REPVR ---
PROCEDURE INFORMATION: Exam: CT Chest With Contrast; Diagnostic Exam date and time: 06/02/2021 6:35 PM Age: 65 years old Clinical indication: Fever TECHNIQUE: Imaging protocol: Diagnostic computed tomography of the chest with contrast. Radiation optimization: All CT scans at this facility use at least one of these dose optimization techniques: automated exposure control; mA and/or kV adjustment per patient size (includes targeted exams where dose is matched to clinical indication); or iterative reconstruction. Contrast material: ISOVUE 370; Contrast volume: 100 ml; Contrast route: INTRAVENOUS (IV); COMPARISON: CT Chest without contrast 07/28/2017 12:10 PM FINDINGS: Lungs: Mosaic attenuation with scattered ground-glass opacities in both lungs. Patchy airspace opacities and reticulonodular densities are also present in the right middle and lower lobes. Airways are clear. Pleural spaces: Small left pleural effusion. No pneumothorax. Heart: Mild cardiomegaly. No pericardial effusion. Three-vessel coronary artery atherosclerotic disease. Aorta: Unremarkable. No aortic aneurysm. Lymph nodes: Mildly enlarged mediastinal lymph nodes. Largest pretracheal node measures 2.3 cm. Subcarinal nodes measure 3.0 x 1.6 cm. Bones/joints: Skeletal degenerative changes are noted. Soft tissues: Unremarkable. IMPRESSION: 1. Ground-glass attenuation in both lungs and patchy alveolar opacities and reticulonodular opacities in the right middle and lower lobes suggesting an atypical or mycobacterial pneumonia. Mild mediastinal adenopathy. 2. Cardiomegaly with three-vessel coronary artery disease. 3. Small left pleural effusion. Electronically signed by: Mario Chaves On 06/02/2021 20:10:50 PM
--- NOTE | 2021-06-02 20:16 | REPVR ---
PROCEDURE INFORMATION: Exam: CT Abdomen And Pelvis With Contrast Exam date and time: 06/02/2021 6:35 PM Age: 65 years old Clinical indication: Fever TECHNIQUE: Imaging protocol: Computed tomography of the abdomen and pelvis with contrast. Radiation optimization: All CT scans at this facility use at least one of these dose optimization techniques: automated exposure control; mA and/or kV adjustment per patient size (includes targeted exams where dose is matched to clinical indication); or iterative reconstruction. Contrast material: ISOVUE 370; Contrast volume: 100 ml; Contrast route: INTRAVENOUS (IV); COMPARISON: CT ABD/PEL W/IV ORAL CONTRAS 07/26/2017 8:36 PM FINDINGS: Liver: Liver appears low attenuating suggesting a [place] steatosis. No liver masses. Gallbladder and bile ducts: There has been prior cholecystectomy. No biliary duct dilation. Pancreas: The pancreas is atrophic and largely replaced by fat. There is an oval 12 mm cystic mass in the region of the pancreatic body anterior to the SMV (series 205, image 57). No pancreatic inflammatory changes or duct dilation. Spleen: Normal. No splenomegaly. Adrenal glands: Normal. No mass. Kidneys and ureters: Unremarkable. No calculi or hydronephrosis. Stomach and bowel: Mild intraluminal fluid and mucosal enhancement in the small bowel. No wall thickening or other inflammatory changes. No bowel obstruction. The stomach and colon are unremarkable. Appendix: No evidence of appendicitis. Intraperitoneal space: No free air. No significant fluid collection. Vasculature: Advanced aortoiliac and visceral artery atherosclerotic disease. No aneurysm or dissection. Lymph nodes: Unremarkable. No enlarged lymph nodes. Urinary bladder: Unremarkable as visualized. Reproductive: There has been prior hysterectomy. Bones/joints: There are advanced degenerative changes in the spine and pelvis. Right hip arthroplasty is in normal alignment. Soft tissues: Unremarkable. IMPRESSION: 1. Mild mucosal enhancement and intraluminal fluid in the small bowel is nonspecific but may indicate a viral enteritis. No bowel obstruction. 2. Hepatic steatosis. 3. Atrophic pancreas. Small cystic structure in the pancreatic body is nonspecific. Pancreatic MRI follow-up is recommended. Electronically signed by: Mario Chaves On 06/02/2021 20:16:38 PM
[2021-06-02 20:42] LABS: CK-MB VALUE MASS 15.5 NG/ML (<3.6); MB/CK RELATIVE INDEX 6.68 (< OR =4); TROPONIN I 2.89 NG/ML (< 0.10)
[2021-06-02 20:43] LABS: C REACTIVE PROTEIN QUANTITATIV 6.28 MG/DL (0.00-0.30)
[2021-06-02] MEDS ORDERED: SIMVASTATIN 10 MG TAB PO SCH (21:00)
--- NOTE | 2021-06-02 21:33 | IPNPDOC ---
Text Note Date of Service The patient was seen on 06/02/21. NOTE Notified by nurse trop has increased. Reviewed chart. Trop up to 2.89 from 0.58. Patient denies any chest pain at any point. Repeat EKG reviewed with Dr Echavarria and discussed case; trop elevation still consistent with severe acute illness due to sepsis. No need for heparin drip per cardio, ok to continue eliquis. Continue treatment of underlying sepsis. Will continue to trend trops to peak. VS,Fishbone, I+O VS, Fishbone, I+O Laboratory Tests 06/02/21 13:56 06/02/21 15:07 Vital Signs Date Time Temp Pulse Resp B/P (MAP) Pulse Ox O2 Delivery O2 Flow Rate FiO2 06/02/21 21:00 85 98 06/02/21 19:30 114/58 (76) 06/02/21 19:00 18 Room Air 06/02/21 17:34 101.0 06/02/21 14:01 1.0 FOZIA FERRERA MD Jun 02, 2021 21:33
[2021-06-02 21:35] VITALS: BP 110/50
[2021-06-02] MEDS: GABAPENTIN 300 MG CAP PO SCH (22:19)
[2021-06-02] MEDS: APIXABAN 5 MG TAB (ELIQUIS) PO SCH (22:19)
[2021-06-02] MEDS: LEVEMIR (INSULIN DETEMIR) 1 UNITS/0.01ML SC SCH (22:20)
[2021-06-02] MEDS: HumaLOG INSULIN (NovoLOG) PER UNIT SC SCH (22:20)
[2021-06-02] MEDS: NS 1,000 ML IV SCH (22:30)
[2021-06-02] MEDS ORDERED: PIPERACILLIN/TAZOBACTAM SOD 3.375 GM in D5W MINI-BAG PLUS 50 ML IV SCH (23:00)
[2021-06-03] VITALS (7 sets, daily range): BP systolic 102–131; BP diastolic 55–62
[2021-06-03] MEDS ORDERED: AZITHROMYCIN INJ 500 MG, VIAL MATE ADAPTER 1 EACH in NS 250 ML IV SCH ×3
[2021-06-03] MEDS: NS 1,000 ML IV SCH ×2 (01:15→07:53)
[2021-06-03] MEDS: ACETAMINOPHEN TAB 650MG DOSE (2X325MG) PO PRN (02:19)
[2021-06-03 02:32] LABS: CK-MB VALUE MASS 19.4 NG/ML (<3.6); MB/CK RELATIVE INDEX 7.13 (< OR =4); TROPONIN I 5.17 NG/ML (< 0.10)
[2021-06-03 06:15] LABS: BASO % 0.2 % (0.0-1.0); EOS % 0.1 % (0.0-3.0); HEMATOCRIT 35.4 % (36.0-47.0); LYMPH # 0.8 10^3/uL (1.5-5.0); LYMPH % 5.6 % (24.0-44.0); MEAN CORPUSCULAR HEMOGLOBIN 29.9 pg (27.0-33.0); MEAN CORPUSCULAR HGB CONC 30.8 g/dl (32.0-36.5); MONO # 0.6 10^3/uL (0.0-0.8); NEUTROPHILS # 12.9 10^3/uL (1.5-8.5); NEUTROPHILS % 89.8 % (36.0-66.0); PLATELET COUNT, AUTOMATED 239 10^3/uL (150-450); RED BLOOD COUNT 3.65 10^6/uL (4.00-5.40); WHITE BLOOD COUNT 14.4 10^3/uL (4.0-10.0)
[2021-06-03 06:20] LABS: HEMOGLOBIN 10.9 g/dl (12.0-15.5)
[2021-06-03 06:48] LABS: CALCIUM LEVEL 7.3 MG/DL (8.8-10.2); CREATININE FOR GFR 1.79 MG/DL (0.55-1.30); GLOMERULAR FILTRATION RATE 30.1 (>45); POTASSIUM SERUM 5.5 MEQ/L (3.5-5.1)
[2021-06-03] MEDS: HumaLOG INSULIN (NovoLOG) PER UNIT SC SCH ×4 (07:53→20:45)
[2021-06-03] MEDS: PIPERACILLIN/TAZOBACTAM SOD 3.375 GM in D5W MINI-BAG PLUS 50 ML IV SCH ×3 (07:53→20:35)
--- NOTE | 2021-06-03 08:29 | REP ---
INDICATION: Evaluate for fluid overload COMPARISON: 02/23/2020 TECHNIQUE: Portable AP view of the chest FINDINGS: The mediastinum and cardiac silhouette are stable and within normal limits for portable technique. The lung cooley are clear without acute consolidation, effusion, or pneumothorax. Skeletal structures are intact. IMPRESSION: No acute cardiopulmonary process appreciated. <Electronically signed by Wallace Renae > 06/03/21 [id number]
[2021-06-03 08:48] LABS: CK-MB VALUE MASS 19.8 NG/ML (<3.6); MB/CK RELATIVE INDEX 6.25 (< OR =4); TROPONIN I 6.05 NG/ML (< 0.10)
[2021-06-03] MEDS: GABAPENTIN 300 MG CAP PO SCH ×3 (08:59→20:36)
[2021-06-03] MEDS ORDERED: PANTOPRAZOLE 40MG TAB (PROTONIX) PO SCH (09:00)
[2021-06-03] MEDS: APIXABAN 5 MG TAB (ELIQUIS) PO SCH ×2 (09:00→20:35)
[2021-06-03] MEDS ORDERED: VANCOMYCIN HCL 1,000 MG, VIAL MATE ADAPTER 1 EACH in NS 250 ML IV SCH (09:00)
[2021-06-03] MEDS ORDERED: VANCOMYCIN HCL 750 MG, VIAL MATE ADAPTER 1 EACH in NS 250 ML IV SCH (10:00)
[2021-06-03 10:19] LABS: CK-MB VALUE MASS 18.1 NG/ML (<3.6); MB/CK RELATIVE INDEX 6.44 (< OR =4); TROPONIN I 6.2 NG/ML (< 0.10)
[2021-06-03 10:43] LABS: VANCOMYCIN RANDOM 26.3 UG/ML
[2021-06-03] MEDS ORDERED: POLYVINYL ALCOHOL OPHTH SOLN 15 ML(LIQUITEARS) OU PRN (10:45)
--- NOTE | 2021-06-03 10:45 | IPNPDOC ---
Text Note Date of Service The patient was seen on 06/03/21. NOTE S: Significant overnight events include a troponin increase from 0.58 to 2.89. Pt denies any chest pain. Repeat EKG was reviewed with Dr. Echavarria. Elevated trop consistent with severe acute illness due to sepsis and no need for heparin drip, can continue home eliquis. Pt states she feel better today compared to yesterday. Pt continues to be afebrile with HR in the 70's. Leukocytosis is trending down. Pt continues to have a wet cough and attributes it to her post-nasal drip from her chronic sinus allergies. Lower right leg clinically looks better today with minimal erythema and is not excessively warm to the touch. Pt is able to eat her breakfast and keep it down without any nausea or vomiting. ROS: CONSTITUTIONAL: Denies fever, chills, headaches. HEENT: Denies sore throat, lymphadenopathy. CARDIOPULMONARY: Denies chest pain, palpitations, chest tightness, SOB, wheezing. Admits to cough. GASTROINTESTINAL: Denies abdominal pain, n/v/d/c. GENITOURINARY: Denies any polyuria and dysuria. MUSCULOSKELETAL: Denies any extremity pain, joint pain, muscle stiffness. CLINIC OFFICE MANAGER: Denies any tingling, numbness, neuropathy. O: Vitals: See below Physical Exam: GENERAL: Pt sitting comfortably in bed in NAD. HEENT: Head AT,NC. Neck supple, no lymphadenopathy. LUNGS: Expiratory rales b/l appreciated. No wheezing or crackles. HEART: RRR, S1S2. No murmurs, gallops, rubs. ABDOMEN: Soft non tender. No mass or guarding. EXTREMITIES: Pedal pulses 1+. Extremities warm to touch. SKIN/NAILS: Minimal erythema in right LL. Wound care for heels covered with patch noted. MUSCULOSKELETAL: Moves all extremities. Strength equal bilaterally. A/P: ASSESSMENT: Ms. Leatha Moreno is a 65 yo F with a PMH of IDDMT2, HTN, PVD re quiring metatarsal amputations, GERD, DVT with PE presents with one day history of nausea with vomiting and was found to have a fever, leukocytosis, with erythematous rash in lower right leg. Pt admitted to the hospital for sepsis 2/2 possible cellulitis of right LE and possible PNA. 1. Ground-glass attenuation and patchy alveolar opacities -Likely 2/2 atypical vs mycobacterial PNA. -Expiratory rales appreciated on physical exam. -CT chest 06/02 show signs of possible atypical or mycobacterial pneumonia. Small left pleural effusion -c/t abx Zosyn, Vanc, Azithro day#1 -check urine legionella and strep pneumonia. Sputum culture ordered. 2. Sepsis -3/4 SIRS criteria met upon admission with fever, leukocytosis, and tachycardia -Likely source cellulitis of right lower leg and possible PNA -Leukocytosis trending down from 19.8 to 14.4 today. -UA 06/02 show possible UTI with urine WBC 7, negative nitrates, and trace leukocyte esterase. Pt on abx coverage. -Ucx / pending -BCx 10/ pending -ESR 8 WNL -Procal elevated at 4.84 -CRP elevated at 6.28 -Repeated lactic acid not elevated -c/t with IV Zosyn 3.375g, IV Vanc 1,750mg, IV Azithromycin 500 mg day #1 -c/t IVF NS -CT abd/pel show signs of possible enteritis. Pt on abx coverage 3. Elevated Trop and BNP -Likely due to increased cardiac demand 2/2 infection, possibly 2/2 cardiogenic shock -Trop increase to 6.20. c/t trend trop to peak. -BNP 06/02 was 6375. [place] BNP 06/[place] [address]. -Echo ordered -EKG 06/03 show normal sinus rhythm with possible inferior and anterior infarct with marked ST abnormality with possible lateral subendocardial injury -Repeat CXR on 06/03 for possible fluid overload showed no acute cardiopulmonary process. -CT chest 06/02 show cardiomegaly with three-vessel coronary artery disease. -c/t daily weights -c/t monitor on tele -Cardio consult (Dr. Echavarria); case discussed - will evaluate today -c/w Eliquis - Will add ASA 325 and increase statin coverage to Atorvastatin 80 4. NICK - possibly 2/2 pre-renal etiology, possibly 2/2 intra-renal etiology (2/2 contrast) -Likely due to hypoperfusion in the setting of sepsis -Cr increased from 1.49 on 06/02 to 1.79 today. -Urine rand Na, Cr, Urea ordered -Pt voided today. Bladder scan ordered. -Will DC IV fluids at this time; re: significantly elevated BNP -Baseline Cr was 1.2 in 03/2020 5. Hyperkalemia -Likely due to NICK and hyperglycemia -K 5.5 today -Consider calcium gluconate, insulin with dextrose, diuretics or dialysis if K continues to rise. Will hold off for now given pt acute severity and pt not fluid overloaded. -EKG 06/03 show no peaked t waves. -Continue to monitor tele for cardiac changes. 6. Cellulitis, improving -Leg clinically looks better today with decreased erythema -MRSA screen positive -c/t abx Zosyn, Vanc, Azithro as above 7. N/V and hx of GERD, controlled -Zofran PRN -c/t Protonix 8. IDDMT2, stable -Gluc 230 -c/t Detemir, Lispro ISS. -c/t POC gluc 9. Multiple ulcerations on the lower extremities, stable Patient follows outpatient with Dr. Ledbetter weekly. She states her last appointment was 1 week ago. None of these wounds appear infected on admission. 10. HLD, stable -TG 76 -c/t home simvastatin DVT Ppx: home anticoagulation Eliquis Diet: Consistent carb Code status: Full Activity: OOB ad vicenta DISPOSITION: - Admitted inpatient to PCU pending clinical improvement - Possible transfer to cardiac center for further management with higher level of care; will discuss with cardiology Alvaro HOPE, I+O VSAlvaro, I+O Laboratory Tests 06/02/21 13:56 06/02/21 15:07 06/03/21 06:04 Vital Signs Date Time Temp Pulse Resp B/P (MAP) Pulse Ox O2 Delivery O2 Flow Rate FiO2 06/03/21 04:00 97.2 77 18 102/55 (71) 99 Nasal Cannula 2.0 I&O- Last 24 Hours up to 6 AM 06/03/21 06:00 Intake Total 2250 ml Output Total 150 ml Balance 2100 ml Laboratory Tests Test 06/03/21 09:36 Random Vancomycin Level 42.7 UG/ML Microbiology 06/03/21 Respiratory Virus Panel (PCR) (CHIDI) - Final, Complete 06/02/21 Urine Culture, Received Pending 06/02/21 Blood Culture, Received Pending 06/02/21 Blood Culture, Received Pending GME ATTESTATION GME ATTESTATION My faculty preceptor for this patient encounter was physically present during the encounter and was fully available. All aspects of the patient interview, examination, medical decision making process, and medical care plan development were reviewed and approved by the faculty preceptor. The faculty preceptor is aware and concurs with the plan as stated in the body of this note and will attest to such by his/her cosignature. ATTENDING NOTE I, Kelsie Rodriguez, have independently examined this patient and performed my own physical exam, as well as reviewed the documentation and edited where necessary with the resident. For medical students we have performed the physical exam together and discussed medical decision making and I have verified the history. I have discussed in detail with the resident / student the findings and plan of treatment as documented by the resident / student and edited their note. I agree with their findings and treatment plan and have edited their documentation. I will continue to follow the patient during this hospital stay. CARLI PONCE OMS-4 Jun 03, 2021 07:25 KELSIE RODRIGUEZ MD Jun 03, 2021 14:36 CONNIE MALIK D.O. Jun 03, 2021 17:20
[2021-06-03 11:48] LABS: CHOLESTEROL RISK RATIO 1.882 (<5)
[2021-06-03] MEDS ORDERED: ATORVASTATIN 20 MG TAB PO ONE (12:00)
[2021-06-03] MEDS ORDERED: ASPIRIN 325 MG TAB PO ONE (12:00)
--- NOTE | 2021-06-03 14:07 | ECGEPIP ---
[facility] Test Date: 2021-06-03 Pat Name: SPEEDY DUEÑAS Department: Room: [place] [address] Gender: Female Behavioral Scientist: nakul : 1955 Requested By: FOZIA Olson Order Number: [id number] Reading MD: Gerald Zamora Measurements Intervals [place] Rate: 73 P: 54 CT: 152 QRS: 27 QRSD: 84 T: 162 QT: 436 QTc: 480 Interpretive Statements Normal sinus rhythm Possible Inferior infarct , age undetermined Anterior infarct , age undetermined Diffuse repolarization abnormalities consistent with acute ischemia Except for slower heart rate, no significant change since prior tracing of June 02, 2021 Electronically Signed on 06-03-2021 14:07:09 EDT by Gerald Zamora
--- NOTE | 2021-06-03 14:12 | ECGEPIP ---
[facility] Test Date: 2021-06-03 Pat Name: SPEEDY DUEÑAS Department: Room: [place] [address] Gender: Female Ranch Rider: dee : 1955 Requested By: FOZIA Olson Order Number: [id number] Reading MD: Gerald Zamora Measurements Intervals [place] Rate: 74 P: 54 [place]: 146 QRS: 32 QRSD: 82 T: 164 QT: 444 QTc: 492 Interpretive Statements Normal sinus rhythm Possible Inferior infarct , age undetermined Anterior infarct, age indeterminate Diffuse repolarization abnormalities suggestive of acute ischemia but unchanged since prior tracing of earlier this date Electronically Signed on 06-03-2021 14:12:29 EDT by Gerald Zamora
[2021-06-03] MEDS: COSOPT OCUMETER PLUS 10ML (DORZOLAMIDE/TIMOLOL) OU SCH ×2 (14:24→20:38)
[2021-06-03] MEDS ORDERED: SOD POLYSTYRENE SULFONATE SUSP 15 GM/60 ML UD PO ONE (16:00)
[2021-06-03 16:35] LABS: CK-MB VALUE MASS 14.2 NG/ML (<3.6); MB/CK RELATIVE INDEX 5.61 (< OR =4); TROPONIN I 4.77 NG/ML (< 0.10)
--- NOTE | 2021-06-03 18:54 | ECGEPIP ---
[facility] - ED Test Date: 2021-06-02 Pat Name: SPEEDY DUEÑAS Department: Room: - Gender: Female Home Security Professional: JDevonte : 1955 Requested By: Sharee Christiansen Order Number: [id number] Reading MD: Kathe Aj Measurements Intervals [place] Rate: 110 P: 60 OK: 150 QRS: 81 QRSD: 86 T: 130 QT: 336 QTc: 454 Interpretive Statements Sinus tachycardia Anterolateral infarct , age undetermined, clinical correlation more pronounced stt changes require clinical correlation 04/05/20 Electronically Signed on 06-03-2021 18:54:04 EDT by Kathe Aj
--- NOTE | 2021-06-03 19:54 | ECHO ---
ECHOCARDIOGRAM DATE OF PROCEDURE: 06/03/2021 Age: 65 years Gender: Female Height: 63 inches Weight: 253 pounds Body Surface Area: 2.14 m2. Inpatient: PCU, room 3212 REFERRING PROVIDER: Jnenifer Tillman DO INDICATION: Cardiomegaly. MEASUREMENTS: 2D Measurements: RV 5.0 cm LV 4.5 cm Septum 1.1 cm Posterior wall 1.1 cm Aortic Root 3.0 cm LA 3.9 cm LVEF 55-60% Doppler Measurements: AV 1.28 m/s LVOT 0.85 m/s LVOT diameter 1.7 cm MV-E 154, A 94, E/A ratio 1.6 Early mitral deceleration time 194 ms Mean MV diastolic gradient 5 mmHg PV - 0.75 m/s Pulmonary artery acceleration time 90 ms RVSP 70 mmHg IVC 2.2 cm COMMENTS: Normal sinus rhythm without intraventricular conduction disturbance. Slightly technically challenging study in light of the patient's body habitus, but diagnostically useful information was still obtained. M-Mode and Two Dimensional Echocardiography was performed with pulse, continuous wave, color flow, and tissue Doppler studies. Normal left ventricular size with wall thickness upper limits of normal. Septal wall motion abnormality with some flattening of the septum in keeping with right ventricular pressure overload, yet preserved global resting left ventricular systolic function. Left atrium upper limits of normal in size but cannot comment on LV diastolic function in light of mitral valve disorder. Prominently dilated right heart chambers with hypokinetic right ventricular free wall and Doppler evidence of severe pulmonary hypertension. Borderline dilated inferior vena cava (IVC) size with absent respiratory collapse in keeping with significantly elevated central venous pressure/right heart failure. Normal aortic dimensions. Three equal sized aortic cusps with irregular cusp thickening, but adequate cusp separation and very mild aortic insufficiency. Could not rule out vegetation. Severe mitral annular thickening and thickening of the mitral leaflets with some reduction in leaflet separation and Doppler suggesting at least a mild degree of LV inflow tract obstruction. Doppler evidence showing moderately severe mitral insufficiency. The valve itself appeared to be irregular and there appeared to be a vegetation measuring 0.84 x 0.4 cm. Normal-appearing tricuspid valve with moderately severe to severe tricuspid insufficiency. Miniscule posterior pericardial effusion. Based on the above test findings, I plan to contact the primary care provider directly. I understand the patient is already receiving broad-spectrum antibiotic therapy. Given her extensive pulmonary infection and the observed severe pulmonary hypertension with right heart failure, her prognosis is extremely guarded. TERESA
[2021-06-03] MEDS: PANTOPRAZOLE 40MG TAB (PROTONIX) PO SCH (20:36)
[2021-06-03] MEDS: LEVEMIR (INSULIN DETEMIR) 1 UNITS/0.01ML SC SCH (20:36)
[2021-06-03] MEDS: LATANOPROST 0.005% OPHTH SOLN 2.5 ML OU SCH (20:37)
[2021-06-03 21:15] LABS: CK-MB VALUE MASS 11.5 NG/ML (<3.6); MB/CK RELATIVE INDEX 4.81 (< OR =4); TROPONIN I 4.1 NG/ML (< 0.10)
[2021-06-04] VITALS: BP 123/58
--- NOTE | 2021-06-04 00:40 | CR.PDOC ---
General Date of Consultation: Jun 03, 2021 Referring Provider: KATY BARNHART MD Attending Physician: Tiana Power MD Consultation REASON FOR CONSULTATION/CHIEF COMPLAINT: Sepsis/fever/RLE cellulitis HISTORY OF PRESENT ILLNESS: Ms. 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 In the ED, she met 3/4 SIRS criteria including fever 101.5, tachycardic 107, and leukocytosis WBC 19.8. She was given oxygen, IVF, and IV Zosyn. Upon admission, the hospitalist service noted RLE edema and p ossible cellulitis. IV Zosyn was continued and IV Vancomycin was added. Respiratory panel was negative. CXR showed mild cardiomegaly and possible mild interstitial edema. CT chest showed ground-glass attenuation in both lungs and patchy alveolar opacities and reticulonodular opacities in the right middle and lower lobes with mild mediastinal adenopathy, specifically the pretracheal and subcarinal nodes. Due to possible atypical or mycobacterial pneumonia, Azithromycin was added. The patient was seen today at bedside. She describes no acute changes overnight. She reports her nausea and vomiting have resolved. There is mild pain in the RLE only to palpation. She is unable to see in both eyes, only recognizing bright lights in the right eye. Therefore, was unable to provide any progression of the erythema or edema in the RLE. She sees Dr. Ledbetter for her bilateral tarsal and heel ulcers weekly. She says her chronic cough began approx 2 years ago, along with a post-nasal drip. She thinks it is due to her sinuses and allergies. At this time, the patient does not report any pain in the LEs at rest, nausea, vomiting, fever, chills, SOB, or chest pain. She had a chronic cough for 2 years she relates to allergies and post nasal drip. ALLERGIES: -Codeine, resulted in coma for 5 days MEDICATIONS: -IV Zosyn 3.375gm Q6 -IV Vancomycin [id number] -IV Azithromycin 500mg -Aspirin 325mg PO -Insulin Lispro -Insulin Detemir -Eliquis 5mg PO BID -Atorvastatin 80mg PO daily -Gabapentin 300mg PO TID -Acetaminophen 650mg Q4H PRN -Artificial drops 1 drop OU BID PRN -Brimonidine Tartrate 1 drop OU BID PRN -Dorzolamide HCl/Timolol Maleat 1 drop OU BID PRN -Duloxetine HCl 30mg PO daily -Ferrous Gluconate 324mg PO Q2D -Fexofenadine HCl 180mg PO daily -Fluticasone Propionate 16gm -Furosemide 20mg PO daily -Latanoprost 0.005% 2.5ml -Lisinopril 10mg PO daily -Montelukast Sodium 10mg PO QHS -Pantoprazole 40mg PO daily -Simvastatin 10mg PO QHS PAST MEDICAL HISTORY: -Insulin-dependent diabetes -Diabetic neuropathy -Diabetic retinopathy -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 Ledbetter -Multiple debridements for bilateral heel osteomyelitis -Right hip fracture with hemiarthroplasty January 2018 -Hysterectomy -Cholecystectomy -Cataract surgery -Right eye glaucoma surgery -Revascularization of right leg in September 2016 -Left great toe amputation in February 2017. SOCIAL HISTORY: Marital status and/or living arrangements: living with her ; daughter is her home health aide. Tobacco use: Denies ETOH: Denies Illicit drug use: Denies IV drug use: Denies REVIEW OF SYSTEMS: CONSTITUTIONAL: Has been gaining weight due to immobility. Denies fever, chills, night sweats. HEENT: Blind in left eye. Can recognize bright lights in right eye. Reports post-nasal drip for approx 2 months. Denies dysphagia. CARDIOVASCULAR: Denies chest pain/pressure, palpitations. RESPIRATORY: Chronic dry cough for approx 2 years. Denies SOB, pleuritic pain. GENITOURINARY: Denies flank pain, dysuria, pyuria, or hematuria. GASTROINTESTINAL: Denies N/V/D. SKIN: Heel ulcers are healing; she sees Dr. Ledbetter weekly. Denies any new ulcers, abrasions, or lesions. ALLERGIC/IMMUNOLOGIC: Post-nasal drip and cough for approx 2 months that she believes are due to her allergies. PHYSICAL EXAMINATION: VITAL SIGNS: Please see below. GENERAL APPEARANCE: Patient is a pleasant, obese female sitting upright in bed, afebrile, and in no acute distress. HEENT: NC, AT. Unable to perform vision exam due to blindness. Non-injected conjunctiva. Sclera non-icteric. Mucus membranes moist. RESPIRATORY: Course breath sounds. Rhonchi appreciated bilaterally beginning in the mid-lower lobes. Faint crackles heard at the bilateral bases. CARDIOVASCULAR: Distant heart sounds. RRR. No obvious murmurs, rubs, or gallops appreciated. ABDOMEN: Soft, obese, non-tender to palpation. Multiple <1cm healed scars seen on the abdomen; patient says they are from her insulin shots and picking at them . EXTREMITIES: Area of erythema and edema present on RLE and marked with skin pen. Well demarcated and warm to touch. There are no obvious open wounds or lesions appreciated. No active drainage or bleeding seen. Clean amputation of all 5 toes on the left foot with approx 5mm healed ulcer around the 2-3rd tarsal PIP. Amputated 2nd and 3rd toes on the right foot. Bilateral heel ulcers are closed and healing. They are well bandaged. No active draining or bleeding is present on either foot. Edema appreciated bilaterally, R>L. Radial, dorsalis pedis and posterior tibialis pulses appreciated bilaterally. NEUROLOGICAL: Some memory deficits. PSYCHIATRIC: Mood appears stable. LABORATORY DATA: Please see below. IMAGIN06/02/21 Chest X-Ray Impression: "Global cardiomegaly and possible mild int erstitial edema." 06/02/21 CT Ab/Pelvis w/ Contrast Impression: "1. Mild mucosal enhancement and intraluminal fluid in the small bowel is nonspecific but may indicate a viral enteritis. No bowel obstruction. 2. Hepatic steatosis. 3. Atrophic pancreas. Small cystic structure in the pancreatic body is nonspecific. Pancreatic MRI follow-up is recommended." 06/02/21 CT Chest w/ Contrast Impression: "1. Ground-glass attenuation in both lungs and patchy alveolar opacities and reticulonodular opacities in the right middle and lower lobes suggesting an atypical or mycobacterial pneumonia. Mild mediastinal adenopathy. 2. Cardiomegaly with three-vessel coronary artery disease. 3. Small left pleural effusion." 06/03/21 Portable Chest X-Ray Impression: "No acute cardiopulmonary process appreciated." MICROBIOLOGY: 06/02/21 Preliminary blood cultures negative 06/02/21 Urine culture pending 06/03/21 Respiratory viral panel negative 06/03/21 AFB smear and culture pending IMPRESSION: #RLE erysipelas vs cellulitis -The patient did not initially present with complaints of cellulitis or LE pain. She may have been at increased risk due to her history of heel ulcers, diabetes, and chronic LE edema. The erythema and edema present in her RLE may be erysipelas and less likely cellulitis. Erysipelas presents with more acute onset of symptoms with a unilateral, well demarcated area of erythema and edema with raised borders. It usually involves the superficial layers of the dermis and lymphatics and recurrent and nonpurulent. Cellulitis is also unilateral but involves the deeper dermis and subcutaneous fat layers. It may be purulent or nonpurulent. It usually will be an indolent presentation with local systemic symptoms developing over a period of days. The most common pathogens to cause erysipelas and cellulitis are group A Strep, Strep pyogenes, and less commonly Staph aureus including MRSA. The patient has responded well to antibiotics. She may be more susceptible to MSSA,as she has previously positive wound cultures to these organisms. There are no open wounds or lesions seen on physical exam except for healed heel ulcer . #Chronic cough -The patient reports a chronic, dry cough and occasional post-nasal drip for about 2 years. She attributes these symptoms to her allergies. Her respiratory viral panel was negative. However, CT chest findings showed ground-glass at tenuation in both lungs and reticulonodular opacities in the right middle and lower lobes which are common findings of nontuberculous mycobacterial (NTM) pneumonia. NTM can also manifest as nodules, cavitations and bronchiectasis. The most common NTM are Mycobacterium avium complex (MAC), Mycobacterium abscessus subsp abscessus, and Mycobacterium [place]ii. Nonsmoking women over age 50 who have abnormal chest radiography predominantly present with a chronic cough, average of 25 weeks, before diagnoses are made. Diagnosis is made with 2 AFB cultures, which can take up to 6 weeks to result. Treatment is based on the result of AFB cultures she does not need TX at this time. also in differential would be fungal infections #Met SIRS criteria with infection source of unknown origin -The patient presents with acute (1-day) onset of N/V and 3/4 criteria for SIRS including fever, tachycardia and leukocytosis; from right leg infection. CRP 6.28, lactic acid and ESR negative. She has responded well to IVFs and antibiotics. There was an elevated troponin of 0.58 and peak of 6.20 overnight. Now, troponins have been downtrending. Elevated troponins most likely due to demand ischemia secondary to sepsis. Patient is now afebrile, sinus rhythm, WBCs downtrending. PLAN: -Continue IV Vancomycin and IV Zosyn for strep, staph, MRSA, klebsiella, and pseudomonas coverage. will adjust to PO antibiotics if patient remains stable and results of cultures available. -Discontinue azithromycin. Will consider NTM treatment as outpatient if she has positive culture . -AFB cultures X2 pending , Quantiferon TB, fungal serology. -Airborne isolation precautions. Vital Signs/I&O Vital Signs Date Time Temp Pulse Resp B/P (MAP) Pulse Ox O2 Delivery O2 Flow Rate FiO2 06/03/21 16:00 2.0 06/03/21 15:41 99.0 84 17 122/58 (79) 100 Nasal Cannula I&O- Last 24 Hours up to 6 AM 06/03/21 06:00 Intake Total 2250 ml Output Total 150 ml Balance 2100 ml Laboratory Data Labs 24H Laboratory Tests 2 06/02/21 19:44: Lactic Acid Level 1.6, Total Creatine Kinase 232H, Creatine Kinase MB 15.5H, Creatine Kinase MB Relative Index 6.68H, Troponin I 2.89#*H, C-Reactive Protein, Quantitative 6.28H, Triglycerides Level 76, Amylase Level 15L, Lipase 16L, Procalcitonin 4.84 06/02/21 22:13: Bedside Glucose (Misc Panel) 307H 06/03/21 01:48: Total Creatine Kinase 272H, Creatine Kinase MB 19.4H, Creatine Kinase MB Relative Index 7.13H, Troponin I 5.17#*H 06/03/21 02:11: Methicillin-Resist S.aureus DNA PCR DETECTEDA 06/03/21 06:04: Immature Granulocyte % (Auto) 0.3, Neutrophils (%) (Auto) 89.8H, Lymphocytes (%) (Auto) 5.6L, Monocytes (%) (Auto) 4.0, Eosinophils (%) (Auto) 0.1, Basophils (%) (Auto) 0.2, Neutrophils # (Auto) 12.9H, Lymphocytes # (Auto) 0.8L, Monocytes # (Auto) 0.6, Eosinophils # (Auto) 0.0, Basophils # (Auto) 0.0, Nucleated Red Blood Cells % (auto) 0.0, Anion Gap 7L, Glomerular Filtration Rate 30.1L, Calcium Level 7.3#L, Total Creatine Kinase 317H, Creatine Kinase MB 19.8H, Creatine Kinase MB Relative Index 6.25H, Troponin I 6.05*H, HU-Nju-A-Type Natriuretic Peptide [id number], Random Vancomycin Level 26.3 06/03/21 09:36: Total Creatine Kinase 281H, Creatine Kinase MB 18.1H, Creatine Kinase MB Relative Index 6.44H, Troponin I 6.20*H, Triglycerides Level 71, Total Cholesterol 64, LDL Cholesterol 16, Non-HDL Cholesterol (LDL + VLDL) 30, Total HDL Cholesterol 34L, Cholesterol/HDL Ratio 1.882 06/03/21 11:35: Bedside Glucose (Misc Panel) 190H 06/03/21 13:38: 06/03/21 15:36: Total Creatine Kinase 253H, Creatine Kinase MB 14.2H, Creatine Kinase MB Relative Index 5.61H, Troponin I 4.77#*H 06/03/21 16:51: Bedside Glucose (Misc Panel) 163H CBC/BMP Laboratory Tests 06/03/21 06:04 Microbiology Microbiology 06/03/21 Respiratory Virus Panel (PCR) (CHIDI) - Final, Complete 06/02/21 Urine Culture, Received Pending 06/02/21 Blood Culture - Preliminary, Resulted No growth after 24 hours . All specim... 06/02/21 Blood Culture - Preliminary, Resulted No growth after 24 hours . All specim... Allergies Coded Allergies: codeine (Verified Adverse Reaction, Severe, COMA FOR 5 DAYS, 06/02/21) Home Medications Scheduled Apixaban (Eliquis) 5 Mg Tablet, 5 MG PO BID, (Reported) Brimonidine Tartrate (Brimonidine Tartrate) 0.2% 5ML Drops, 1 DROP OU BID, (Reported) Dorzolamide HCl/Timolol Maleat (Dorzolamide-Timolol Eye Drops) 10 Ml Drops, 1 DROP OU BID, (Reported) Duloxetine Hcl (Duloxetine HCl) 30 Mg Capsule.dr, 30 MG PO DAILY, (Reported) Ferrous Gluconate (Ferrous Gluconate) 324 Mg Tablet, 324 MG PO Q2D, (Reported) Fexofenadine HCl (Fexofenadine HCl) 180 Mg Tablet, 180 MG PO DAILY, (Reported) Fluticasone Propionate (Fluticasone Propionate) 16 Gm [place].susp, 2 SPRAYS NARES DAILY, (Reported) Furosemide (Furosemide) 20 Mg Tablet, 20 MG PO DAILY, (Reported) Gabapentin (Gabapentin) 400 Mg Capsule, 400 MG PO TID, (Reported) Insulin Aspart (Novolog Flexpen) 100 Unit/1 Ml Insuln.pen, 16 UNITS SC TID, (Reported) Insulin Detemir (Levemir) 1 Units/0.01 Ml Susp, 55 UNITS SC QPM, (Reported) AFTER DINNER Latanoprost (Xalatan) 0.005% 2.5ML Drops, 1 DROP OU QHS, (Reported) Lisinopril (Lisinopril) 10 Mg Tablet, 10 MG PO DAILY, (Reported) Montelukast Sodium (Singulair) 10 Mg Tablet, 10 MG PO QHS, (Reported) Pantoprazole Sodium (Protonix) 40 Mg Tab, 40 MG PO DAILY, (Reported) Simvastatin (Simvastatin) 10 Mg Tablet, 5 MG PO QHS, (Reported) Scheduled PRN Polyvinyl Alcohol (Artificial Tears) 15 Ml Drops, 1 DROP OU BID PRN for DRY EYES, (Reported) GME ATTESTATION GME ATTESTATION My faculty preceptor for this patient encounter was physically present during the encounter and was fully available. All aspects of the patient interview, examination, medical decision making process, and medical care plan development were reviewed and approved by the faculty preceptor. The faculty preceptor is aware and concurs with the plan as stated in the body of this note and will attest to such by his/her cosignature. ARPIT LOFTON OMS-3 Jun 03, 2021 19:03 Tiana Power MD Jun 06, 2021 09:15
[2021-06-04] MEDS: PIPERACILLIN/TAZOBACTAM SOD 3.375 GM in D5W MINI-BAG PLUS 50 ML IV SCH ×4 (01:35→21:21)
[2021-06-04 02:32] LABS: CK-MB VALUE MASS 7.9 NG/ML (<3.6); MB/CK RELATIVE INDEX 3.67 (< OR =4); TROPONIN I 2.47 NG/ML (< 0.10)
[2021-06-04 04:00] VITALS: BP 118/56
--- NOTE | 2021-06-04 07:46 | CR ---
CARDIOLOGY CONSULTATION DATE: 06/03/2021 REFERRING PHYSICIAN: KATY RODRIGUEZ MD INDICATION: Elevated troponin I level in patient with multiple coronary risk factors and severe pneumonia. HISTORY: This 65-year-old mother of four, disabled resident of [place], [place], has a host of medical problems including life-long obesity, insulin dependent diabetes mellitus, complicated by retinopathy (currently legally blind), peripheral neuropathy, and vascular disease. In 2013, she suffered a major pulmonary embolism with a chest CT scan at that time reporting relatively normal appearing heart, thoracic aorta and pericardium, extensive no heart you atherosclerotic coronary abnormalities were noted. A saddle embolus was described with extension into the pulmonary arteries in both upper lobes, right middle lobe and both lower lobes associated with moderate bilateral pleural effusions. Her EKG July 16, 2014 showed underlying sinus rhythm, left axis deviation, low voltages, with poor R-wave progression and persistent S-waves in V5 and V6 along with diffuse repolarization abnormalities. An echocardiogram at the time showed evidence of borderline left ventricular hypertrophy with a D-shaped septum suggestive of right ventricular pressure overload and severe pulmonary hypertension yet global left ventricular systolic function was preserved. Left atrial size was upper limits of normal with Doppler evidence of left ventricular diastolic dysfunction. Both right atrium and right ventricle were significantly dilated and markedly hypokinetic. Estimated pulmonary arterial pressure was 80 mmHg systolic. She had severe associated tricuspid insufficiency. There were mild degenerative changes of her mitral and aortic valvular apparatus without functional abnormality. Her inferior vena cava was also dilated consistent with right heart failure. She survived this to be transferred to a rehabilitation unit for gradual ambulation. Since that time, she has been on oral anticoagulant therapy. Has undergone peripheral vascular intervention/angioplasties and developed chronic lower leg swelling. With this swelling and her diabetes, developed significant ulcerations complicated by infection and osteomyelitis. Has been seen regularly by Dr. Serg Ledbetter, methods specialist engineer, for chronic debridement procedures. In 2016, she was medically disabled because of blindness and her peripheral neuropathy and other medical problems. For years, she has been using a walker to ambulate, in the past few years a wheelchair. Despite abnormal EKGs and her echocardiograms, the patient has not been aware of any cardiac abnormality. She specifically denies any effort related chest, jaw or arm discomforts. Limited by her peripheral vascular disease and neuropathy, walking currently no more than 20 feet at any one time. She does not become short of breath. She has always slept with the head of her bed elevated and denies orthopnea. Despite her significant weight problem, has not been known to have any snoring problems or apnea. Denies nocturnal dyspnea. Unaware of her heart action. Denies dizziness but has fun because of loss of balance. Only altered mental status she claims is related to hypoglycemic episodes. Remote history of herpes encephalitis and had been troubled with unsteadiness but these symptoms have resolved. Peripheral vascular interventions as mentioned before, chronic lower leg swelling but unaware of varicose veins or prior phlebitis despite her extensive pulmonary embolic event. Prior history of pneumonia and chronic rhinitis but never smoked. Never exposed to second hand smoke. Has a mostly dry chronic cough. Cannot recall ever having hemoptysis. On June 02he was taken by ambulance to [facility] Emergency Room complaining of general malaise, chills and increased cough. Initial vital signs showed a temperature of 102.5. Heart rate was 107 beats per minute, blood pressure 144/68. O2 saturation was 85% on room air. Chest x-ray reported a global cardiomegaly, reportedly unchanged from February 23, 2020 with accentuated interstitial markings throughout both lung cooley, could not discount some pulmonary vascular congestion. No pleural effusions. Chest CT scan was reported as showing cardiomegaly with evidence of coronary calcification involving all three vessels, ground-glass attenuation in both lungs and patchy alveolar opacities and reticular nodular opacities suggestive of atypical or mycobacterial pneumonia. There was also mild mediastinal adenopathy and a small left pleural effusion. EKG was reported as showing sinus rhythm with possible prior anterior and inferior myocardial infarctions and diffuse repolarization abnormalities but there was no serial change. Blood work showed a normal hemoglobin with elevated white blood cell count of 19.8 thousand. Blood work revealed slight hyperkalemia of 5.3 but otherwise electrolytes were normal. BUN was 17, creatinine was 1.49 with an estimated glomerular filtration rate of 37, random glucose 156, slightly increased total bilirubin, normal transaminases, slightly increased alkaline phosphatase, serum albumin was 3.2 pro-BNP level was 6300 and 75. Initial troponin I level was 0.58 and this increased to 2.89, then up to a maximum of 6.0 earlier this morning but is currently down to 4.8. Maximum CPK was 317 earlier this morning. Lactic acid level was only 1.5. Urinalysis showed 1+ proteinuria, 2+ hematuria, only trace bacteria with leukocyte esterase only trace positive. MRSA (PCR) was detected. Negative for COVID. Negative for influenza. Blood cultures has shown no growth after 24 hours. Previous foot swabs have grown staphylococcus aureus. Consultation was placed by service today. CORONARY RISK FACTORS: Age, postmenopausal status, lifelong obesity, longstanding insulin dependent diabetes mellitus with complications, vascular disease, and denies smoking history, hypertension or hypercholesterolemia. No family history of premature coronary artery disease. OTHER PAST MEDICAL HISTORY: Chronic osteomyelitis and ulceration, progressive diabetic neuropathy, peripheral vascular disease and carotid vascular disease, previous TIA in July 2017, glaucoma, bladder dysfunction, pneumonitis. Pulmonary embolism, chronic foot pain, Klebsiella pneumonia in January 2019, lower limb cellulitis, chronic renal insufficiency Stage III. MEDICATIONS: At the time of her admission she was taking Lasix 20 mg daily, Lisinopril 10 mg daily, simvastatin 5 mg q.h.s., Protonix 40 mg daily, Eliquis 5 mg b.i.d., Ferrous Gluconate 325 mg p.o. every other day, Molly 180 mg daily, Flonase one inhalation each nostril daily, Brimonidine eyedrops each eye b.i.d., Dorzolamide/Timolol eyedrops one drop each eye b.i.d., Duloxetine 30 mg daily with Gabapentin 400 mg p.o. t.i.d., Montelukast 10 mg daily, Xalatan eyedrops one drop each eye q.h.s, insulin Novolog FlexPen 16 units sub q. t.i.d. and Levemir insulin 55 units sub q. q. p.m. ALLERGIES: Codeine (coma ?). SYSTEMS REVIEW: Chills and lethargy as mentioned above. Denies a sore throat but increased cough. Denies headache. Some GI upset, nausea and vomiting but no change in bowel habits. Denies dysuria. History of paresthesias and leg weakness as well as back pain. All other systems review is negative. PHYSICAL EXAMINATION: Pleasant, bright, late middle-aged woman, obese, lying comfortably with the head of the bed elevated 30 degrees. VITAL SIGNS: Heart rate 82 beats per minute and regular, blood pressure 108/70 supine right arm. Respiratory rate is 18. O2 saturation 100% on supplemental oxygen via nasal prongs at 2 liters, currently afebrile. Weight is 233 pounds, height 63 inches, BMI 41.4. EYES: No conjunctival pallor or apparent icterus. No petechiae. No xanthelasma. ENT/MOUTH: Normal oral moisture. No central cyanosis. NECK: Trachea is midline. Thyroid is not enlarged. Jugular veins did appear to be elevated. Some 8 cm above the sternal angle with her supine. RESPIRATORY: Increased anteroposterior chest diameter with fair chest expansion and a few scattered inspiratory rales of both lower lobes. No expiratory wheezes. CARDIOVASCULAR: Apical impulse was not palpable. Heart sounds are distant. Unable to detect gallop or murmur. No rub. Normal carotid upstrokes and volume with no bruits. Upper extremity pulses were symmetrical and normal. Abdominal aorta was not palpable nor were her femoral arteries because of obesity. No abdominal bruit. Pedal pulses were not palpable because of marked edema. Has pitting edema up to the level of her distal thighs bilaterally. No obvious varicose veins. Serpentinous erythema, especially the right lower leg. EXTREMITIES: No clubbing, peripheral cyanosis, or splinter hemorrhages. No periungual infarcts or petechiae. GI: Obese, soft, nontender, unable to detect organomegaly because of her obesity. Rectal examination not indicated. INVESTIGATIONS: Portable upright chest x-ray taken in the Emergency Room was reviewed independently and shows obvious cardiomegaly with somewhat unfolded thoracic aorta, proximal pulmonary vessels and pulmonary trunk appeared to be increased with rapid tapering consistent with pulmonary hypertension, increased interstitial markings and lymphadenopathy and no pleural effusions. Bony structures appeared unremarkable. Chest CT scan June 02, 2021was reviewed independently. The study was performed with contrast. Thoracic aorta did not appear to be increased in size. Pulmonary trunk and proximal pulmonary arteries were markedly dilated with pulmonary trunk measuring 3.4 cm. There was calcification of her coronary arteries of a significant degree. Left atrium was upper limits of normal, left ventricle did not appear to be dilated, prominently dilated right ventricle and markedly dilated right atrium with IVC measuring 2.4 cm. No pericardial effusion. There was a scattered ground-glass appearance to both lungs with reticular nodular densities, small left pleural effusion but no pneumothorax. Lymphadenopathy. Skeletal structures did not appear remarkable. EKGs: Serial studies reviewed independently did not show any evolutionary changes sinus rhythm without left atrial conduction disturbance. Somewhat low precordial voltages with QS pattern from V1 through V5 suggestive of prior anterior infarction. Also, Q-waves in III and AVF suggestive of prior inferior infarction. ST elevation, NS in lead III and prominent lateral ST segment depression and T-wave inversions. An echocardiogram: Study read by myself earlier today (please separate official report) showed left ventricular wall thickness upper limits of normal with normal left ventricular size, septal flattening but still some thickening with preserved global left ventricular systolic function, left atrial size upper limits of normal but could not comment on left ventricular diastolic function in light of mitral valve disorder, at least moderately dilated and hypokinetic right heart chambers with severe pulmonary hypertension. Dilated inferior vena cava with absent respiratory collapse in keeping with significantly elevated central venous pressure. Normal aortic diameters. Irregular thickening of 3 equal size aortic cusps with adequate cusp separation but at least very mild insufficiency. Severe thickening of the mitral annulus and thickening of the mitral leaflets with a marginal degree of LV in-flow tract obstruction. Suspicious for mitral valvular vegetation 0.8 x 0.4 cm and associated moderately severe to severe mitral insufficiency. Normal appearing tricuspid valve with fairly severe insufficiency. No pericardial effusion. Blood work today: Hemoglobin has drifted from 12.4 to 10.5 with IV fluid administration. On combination antibiotic therapy her white blood cell count has dropped from 19.8 thousand to 14.4 thousand. Platelet count remains normal. Sedimentation rate on admission was only 8. C-reactive protein was elevated at 6.3. Electrolytes and renal function as mentioned above. Creatinine today has increased to 1.79. Estimated glomerular filtration rate 30. Fasting glucose this morning 230. Her pro-BNP level has increased to 31,732. Lactic acid level was only 1.6. IMPRESSION/PLAN: 1. Abnormal EKG: Remarkably despite her multiple coronary risk factors has been free of symptomatic myocardial ischemia. Her EKG appearance is suggestive of prior anterior and inferior infarctions but her echocardiogram shows normal anterior and inferior wall motion. She undoubtedly has some degree of coronary artery disease with CT scan showing involvement of all three coronary arteries. However, I believe her elevated troponin I level is primarily a manifestation of right ventricular pressure overload, not an acute coronary syndrome. Currently remains on combination protective atorvastatin, aspirin, and Eliquis. 2. Mitral and aortic valve disorder (nonrheumatic): undoubtedly has some degenerative changes of these structures, however the irregularity of the aortic valve and associated insufficiency as well as the suspected vegetation on the mitral valve and severe mitral insufficiency are very suggestive of endocarditis. This is not surprising given her very complicated lower extremity wounds and prior osteomyelitis requiring complicated chronic dbridements. Remarkably, the patient denies shortness of breath despite the observed fairly severe mitral insufficiency and significantly elevated pro-BNP level. Currently receiving combination parenteral antibiotic therapy and infectious disease is involved in her care. Unfortunately, related to her severe pulmonary hypertension, right heart failure and poor renal function, I do not believe she is a candidate for invasive intervention. Cardiovascular surgery would be associated with a prohibitive perioperative mortality. 3. Cor pulmonale/right heart failure: With her longstanding weight problem and dependent edema, I suspect she does have a sleep disturbance/obstructive sleep apnea. Has had dilated right heart dating back at least to 2013 when she suffered a saddle pulmonary embolus. Her pulmonary arterial pressure at that time was severely elevated. It is hard to reconcile that she is still alive at this time with longstanding right heart failure. Undoubtedly, her diffuse pneumonitis is not helping her situation. Her prognosis is extremely guarded. I have discussed her cardiac abnormalities with her in some detail as well as her very guarded prognosis. At this point, she is a full code but I am not convinced that she will survive her current complicated illness. Unfortunately, I have no specific recommendations beyond those I have discussed with Dr. Rodriguez, i.e. continue Eliquis and statin therapy with broad-spectrum antibiotic therapy as guided by Infectious Disease. I will follow her from afal and appreciate the opportunity to participate in her care. cc: DO EMBER ADAMS MD JAMES STILLERMAN, MD MTDD
[2021-06-04 08:00] VITALS: BP 136/61
[2021-06-04 08:29] LABS: CK-MB VALUE MASS 7.1 NG/ML (<3.6); MB/CK RELATIVE INDEX 4.44 (< OR =4); TROPONIN I 3.09 NG/ML (< 0.10)
--- NOTE | 2021-06-04 09:46 | ECGEPIP ---
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
[2021-06-04] MEDS: ASPIRIN 325 MG TAB PO SCH (10:03)
[2021-06-04] MEDS: GABAPENTIN 300 MG CAP PO SCH ×3 (10:03→21:21)
[2021-06-04] MEDS: PANTOPRAZOLE 40MG TAB (PROTONIX) PO SCH ×2 (10:03→21:21)
[2021-06-04] MEDS: APIXABAN 5 MG TAB (ELIQUIS) PO SCH ×2 (10:03→21:21)
[2021-06-04] MEDS: ATORVASTATIN 20 MG TAB PO SCH (10:03)
[2021-06-04] MEDS: HumaLOG INSULIN (NovoLOG) PER UNIT SC SCH ×4 (10:03→21:00)
[2021-06-04] MEDS: COSOPT OCUMETER PLUS 10ML (DORZOLAMIDE/TIMOLOL) OU SCH ×2 (10:04→21:20)
[2021-06-04 10:44] LABS: BASO % 0.2 % (0.0-1.0); EOS # 0.3 10^3/uL (0.0-0.5); EOS % 3.8 % (0.0-3.0); HEMOGLOBIN 11.1 g/dl (12.0-15.5); LYMPH # 0.7 10^3/uL (1.5-5.0); MEAN CORPUSCULAR HEMOGLOBIN 30.5 pg (27.0-33.0); MEAN CORPUSCULAR HGB CONC 30.8 g/dl (32.0-36.5); MEAN CORPUSCULAR VOLUME 98.9 fl (80.0-96.0); MONO # 0.5 10^3/uL (0.0-0.8); MONO % 5.3 % (2.0-8.0); NEUTROPHILS # 7.2 10^3/uL (1.5-8.5); NEUTROPHILS % 82.2 % (36.0-66.0); PLATELET COUNT, AUTOMATED 234 10^3/uL (150-450); RED BLOOD COUNT 3.64 10^6/uL (4.00-5.40); WHITE BLOOD COUNT 8.7 10^3/uL (4.0-10.0)
[2021-06-04 11:11] LABS: CALCIUM LEVEL 8.4 MG/DL (8.8-10.2); CREATININE FOR GFR 1.52 MG/DL (0.55-1.30); GLOMERULAR FILTRATION RATE 36.3 (>45); POTASSIUM SERUM 3.8 MEQ/L (3.5-5.1); VANCOMYCIN RANDOM 21.3 UG/ML
--- NOTE | 2021-06-04 11:19 | IPNPDOC ---
Text Note Date of Service The patient was seen on 06/04/21. NOTE S: Pt states she feels physically better than yesterday and was able to sleep well overnight. Pt states she continues to have her persistent cough and is trying to obtain a sputum sample. Pt denies any fever chills, headaches, SOB, chest pain, n/v/d. Pt states she is sad after hearing Dr. Echavarria's prognosis of her stating "he tells me I only have a few weeks to live. I would rather at home than be here." ROS: CONSTITUTIONAL: Denies fever, chills, headaches. HEENT: Denies sore throat, swollen lymph nodes CARDIOPULMONARY: Denies chest pain, palpitations, chest tightness, SOB, wheezing. Admits to cough. GASTROINTESTINAL: Denies abdominal pain, n/v/d. GENITOURINARY: Denies any polyuria and dysuria. MUSCULOSKELETAL: Denies any extremity pain or muscle stiffness. LVN HOME HEALTH: Denies any tingling or numbness. O: Physical Exam: Vitals: See below GENERAL: Pt sitting comfortably in bed in NAD. HEENT: Head AT, NC. Neck supple, no lymphadenopathy. LUNGS: Lungs CTA b/l. No wheezing or crackles. HEART: RRR, S1S2. No murmurs, gallops, rubs. ABDOMEN: Soft non tender. No mass or guarding. EXTREMITIES: Extremities warm to touch. Pt wearing shoes and has compression stockings. SKIN/NAILS: Erythema in right LL. MUSCULOSKELETAL: Moves all extremities. Strength equal bilaterally. A/P: ASSESSMENT: Ms. Leatha Moreno is a 65 yo F with a PMH of IDDMT2, HTN, PVD requiring metatarsal amputations, GERD, DVT with PE presents with one day history of nausea with vomiting and was found to have a fever, leukocytosis, with erythematous rash in lower right leg and admitted to the hospital for sepsis 2/2 possible cellulitis of right LE and possible PNA. # Elevated Trop and BNP -Possibly due to increased cardiac demand 2/2 infection vs cardiogenic shock. Less likely due to ACS. -Trop peaked at 6.20 on 06/03. Trop downtrend to 3.09 today. -BNP on 06/02 was 6375. [place] 06[place] [address]. -EKG 06/03 show normal sinus rhythm with possible inferior and anterior infarct with marked ST abnormality with possible lateral subendocardial injury -Repeat CXR on 06/03 for possible fluid overload showed no acute cardiopulmonary process. -CT chest 06/02 show cardiomegaly with three-vessel coronary artery disease. -c/t daily weights -c/t monitor on tele -Cardio consult (Dr. Echavarria); appreciate their input -Echo 06/03 show LVEF 55-60%, dilated right heart chambers with hypokinetic RV free wall suggestive of severe PHTN, very mild aortic insufficiency, moderately severe mitral insufficiency, moderately severe to severe tricuspid insufficiency -c/t Eliquis -c/t ASA 325mg daily -c/t Atorvastatin 80 mg daily # Sepsis -3/4 SIRS criteria met upon admission with fever (102.5F), leukocytosis (19.8 WBC), and tachycardia (107 HR) -Likely source erysipelas vs cellulitis of right lower leg and possible atypical vs mycobacterial PNA -Leukocytosis trending down from 14.4 yesterday to 8.7 today -UA 06/02 show possible UTI with urine WBC 7, negative nitrates, and trace leukocyte esterase. Pt on abx coverage. -Ucx 06/02 pending -BCx 06/02 no growth after 24 hr -ESR 8 WNL -Procal elevated at 4.84 -CRP elevated at 6.28 -Repeated lactic acid not elevated at 1.6 -c/t with IV Zosyn 3.375g and IV Vanc 1,750mg day #2 -Vanc trough 06/04 was 21.3 -Will hold off on IVF for now due to elevated BNP -CT abd/pel show signs of possible enteritis. Pt on abx coverage # RLE Erysipelas vs cellulitis, improving -Right leg continues to clinically look better with decreased erythema -MRSA screen positive -c/t abx Zosyn and Vanc # ?Endocarditis -Hx of mitral and aortic valve disorder (nonrheumatic) and LE wounds with prior osteomyelitis requiring chronic debridement -BCx no growth after 24 hr. -Pt on IV Zosyn and IV Vanc abx. -Echo 06/03 show a vegetation measuring 0.84 x 0.4 cm. Previous echo in 02/2016 show no clear pedunculated mass to suggest vegetation. -Discussed cased with Cardiology and ID. -SYDNEY deferred given pt's poor medical stability and increased risk of prohibitive perioperative mortality from cardiovascular surgery. -Given irregularity of the aortic valve and associated insufficiency as well as the suspected vegetation on the mitral valve and severe mitral insufficiency are very suggestive of endocarditis. However, Cardiology believes due to pt's severe pulmonary hypertension, right heart failure and poor renal function, the pt is not a candidate for invasive intervention as cardiovascular surgery would be as sociated with a prohibitive perioperative mortality. # Ground-glass attenuation and patchy alveolar opacities -Likely 2/2 atypical vs mycobacterial PNA. -CT chest (06/02) show signs of possible atypical or mycobacterial pneumonia. Small left pleural effusion -ID consult (Dr. Power) f/u appreciated. Recommends continue IV Zosyn and IV Vanc for erysipelas vs cellulitis and discontinuing Azythro until AFB cultures result. May adjust to PO antibiotics Linezolid if pt stable. -Pt placed on airborne isolation precautions -c/t abx Zosyn, Vanc day#2 -Urine legionella and strep pneumonia pending -Gram stain (06/03) show Few yeast like organisms with pseudohyphae, many gram + cocci in pairs, chains, clusters, few gram - rods, few gram + rods. -Sputum Cx (06/03 AM) show moderate Staph aureus and few yeast like organism -Sputum Cx (06/03 PM) for AFB was negative. -Secondary AFB sputum Cx awaiting collection. # NICK -Likely due to pre-renal etiology of hypoperfusion in the setting of sepsis vs intra-renal etiology due to contrast induced nephropathy -Cr trending down from 1.79 on 06/03 to 1.52 today. -Baseline Cr was 1.2 in 03/2020 -Urine rand Na, Cr, Urea ordered -Pt has been voided 350 mL yesterday but is net +2660mL. -Will DC IV fluids at this time given significantly elevated BNP # Hyperkalemia, resolved -Likely due to NICK and hyperglycemia -EKG 06/03 show no peaked t waves. -K downtrend to WNL from 5.5 (06/03) to 3.8 today -s/p Kayexalate -Continue to monitor tele for cardiac changes. # N/V and hx of GERD, controlled -Zofran PRN -c/t Protonix # IDDMT2, stable -POC Gluc 111 -c/t Detemir, Lispro ISS. -c/t POC gluc # Multiple ulcerations on the lower extremities, stable Patient follows outpatient with Dr. Ledbetter weekly. She states her last appointment was 1 week ago. None of these wounds appear infected on admission. # HLD, stable -TG 76 -c/t home simvastatin # s/p cataract and glaucoma surgery -c/t home meds latanoprost, artifical tears, Dorzolamide/Timolol DVT Ppx: home anticoagulation Eliquis Diet: Consistent carb Code status: Full Activity: OOB ad vicenta DISPOSITION: -Pending clinical improvement VS,Fishbone, I+O VS, Fishbone, I+O Vital Signs Date Time Temp Pulse Resp B/P (MAP) Pulse Ox O2 Delivery O2 Flow Rate FiO2 06/04/21 04:15 2.0 06/04/21 04:00 97.2 84 18 118/56 (76) 97 Nasal Cannula I&O- Last 24 Hours up to 6 AM 06/04/21 06:00 Intake Total 1310 ml Output Total 350 ml Balance 960 ml GME ATTESTATION GME ATTESTATION My faculty preceptor for this patient encounter was physically present during the encounter and was fully available. All aspects of the patient interview, examination, medical decision making process, and medical care plan development were reviewed and approved by the faculty preceptor. The faculty preceptor is aware and concurs with the plan as stated in the body of this note and will attest to such by his/her cosignature. ATTENDING NOTE I, Kelsie Rodriguez, have independently examined this patient and performed my own physical exam, as well as reviewed the documentation and edited where necessary with the resident. For medical students we have performed the physical exam together and discussed medical decision making and I have verified the history. I have discussed in detail with the resident / student the findings and plan of treatment as documented by the resident / student and edited their note. I agree with their findings and treatment plan and have edited their documentation. I will continue to follow the patient during this hospital stay. CARLI PONCE OMS-4 Jun 04, 2021 07:46 KLESIE RODRIGUEZ MD Jun 04, 2021 14:22 CONNIE MALIK D.O. Jun 04, 2021 18:28
[2021-06-04 12:00] VITALS: BP 138/61
[2021-06-04] MEDS ORDERED: VANCOMYCIN HCL 1,000 MG, VIAL MATE ADAPTER 1 EACH in NS 250 ML IV SCH (13:00)
[2021-06-04 14:23] LABS: C REACTIVE PROTEIN QUANTITATIV 16.6 MG/DL (0.00-0.30)
[2021-06-04 15:38] VITALS: BP 140/72
[2021-06-04 20:00] VITALS: BP 136/69
[2021-06-04] MEDS: LATANOPROST 0.005% OPHTH SOLN 2.5 ML OU SCH (21:20)
[2021-06-04] MEDS: LEVEMIR (INSULIN DETEMIR) 1 UNITS/0.01ML SC SCH (21:20)
[2021-06-04] MEDS: LINEZOLID 600MG TABLET (ZYVOX) PO SCH (21:21)
[2021-06-05] VITALS: BP 154/77
[2021-06-05] MEDS: PIPERACILLIN/TAZOBACTAM SOD 3.375 GM in D5W MINI-BAG PLUS 50 ML IV SCH ×4 (01:54→20:29)
[2021-06-05 07:16] LABS: BASO % 0.3 % (0.0-1.0); EOS # 0.1 10^3/uL (0.0-0.5); EOS % 1.2 % (0.0-3.0); HEMATOCRIT 34.1 % (36.0-47.0); HEMOGLOBIN 10.5 g/dl (12.0-15.5); LYMPH # 0.8 10^3/uL (1.5-5.0); MEAN CORPUSCULAR HEMOGLOBIN 29.5 pg (27.0-33.0); MEAN CORPUSCULAR HGB CONC 30.8 g/dl (32.0-36.5); MEAN CORPUSCULAR VOLUME 95.8 fl (80.0-96.0); MONO # 0.7 10^3/uL (0.0-0.8); MONO % 6.4 % (2.0-8.0); NEUTROPHILS # 9.5 10^3/uL (1.5-8.5); NEUTROPHILS % 84.5 % (36.0-66.0); PLATELET COUNT, AUTOMATED 256 10^3/uL (150-450); RED BLOOD COUNT 3.56 10^6/uL (4.00-5.40); WHITE BLOOD COUNT 11.2 10^3/uL (4.0-10.0)
[2021-06-05 07:41] LABS: CALCIUM LEVEL 7.8 MG/DL (8.8-10.2); CREATININE FOR GFR 1.38 MG/DL (0.55-1.30); GLOMERULAR FILTRATION RATE 40.6 (>45); POTASSIUM SERUM 3.6 MEQ/L (3.5-5.1)
[2021-06-05 08:00] VITALS: BP 149/69
[2021-06-05] MEDS: HumaLOG INSULIN (NovoLOG) PER UNIT SC SCH ×4 (08:48→20:02)
[2021-06-05 08:49] LABS: C REACTIVE PROTEIN QUANTITATIV 15.4 MG/DL (0.00-0.30)
[2021-06-05] MEDS: GABAPENTIN 300 MG CAP PO SCH ×3 (08:49→20:29)
[2021-06-05] MEDS: COSOPT OCUMETER PLUS 10ML (DORZOLAMIDE/TIMOLOL) OU SCH ×2 (08:49→20:09)
[2021-06-05] MEDS: APIXABAN 5 MG TAB (ELIQUIS) PO SCH ×2 (08:49→20:29)
[2021-06-05] MEDS: LINEZOLID 600MG TABLET (ZYVOX) PO SCH ×2 (08:49→20:29)
[2021-06-05] MEDS: ATORVASTATIN 20 MG TAB PO SCH (08:49)
[2021-06-05] MEDS: PANTOPRAZOLE 40MG TAB (PROTONIX) PO SCH ×2 (08:49→20:29)
[2021-06-05] MEDS: ASPIRIN 325 MG TAB PO SCH (08:49)
--- NOTE | 2021-06-05 11:09 | IPNPDOC ---
Text Note Date of Service The patient was seen on 06/05/21. NOTE SUBJECTIVE: Patient was seen and examined this morning at bedside. She states she is feeling about the same as she has been. She would like to go home, and she tells me every day. She states she is not sleeping well in the hospital. She continues to report a persistent cough. Denies fevers overnight. She has not ordered breakfast and states this is because she cannot decide what she wants. She denies any nausea, vomiting or change in appetite. OBJECTIVE: VITAL SIGNS: See below GENERAL: Alert, comfortable, in no acute distress HEENT: Normocephalic, atraumatic, moist mucous membranes NECK: Supple, trachea midline, no lymphadenopathy CARDIOVASCULAR: Regular rate and rhythm, normal S1 and S2. No murmurs, rubs, or gallops RESPIRATORY: Patient has coarse rhonchi in upper airways which clears with coughing. Otherwise lower lung cooley are clear to auscultation bilaterally. No wheezing appreciated. ABDOMEN: Soft, nontender, nondistended, bowel sounds present, obese. EXTREMITIES: Mild erythema over the right lower extremity which is outlined and improving compared to yesterday. This area is also slightly warm compared to the left leg. There is 1+ edema in bilateral lower extremities. NEUROLOGIC: No focal deficits appreciated PSYCHIATRIC: Mood and affect appropriate ASSESSMENT/PLAN: 65-year-old female with past medical history of type 2 diabetes, hypertension, peripheral vascular disease, GERD, DVT and PE on Eliquis, lower extremity nonhealing ulcers, and metatarsal amputations, who presented to the hospital with 1 day of nausea and vomiting admitted for sepsis secondary to right lower extremity cellulitis versus erysipelas and pneumonia #Right lower extremity cellulitis versus erysipelas, improving Continue antibiotic coverage, patient is on IV Zosyn and p.o. linezolid (Antibiotic day #3) MRSA screen positive, will benefit from outpatient decolonization treatment Infectious disease/Dr. Power consulted, appreciate recommendations #Persistent cough secondary to pneumonia Sputum culture positive for staph aureus, no sensitivities available Continue antibiotic coverage, patient is on IV Zosyn and p.o. linezolid day #[address] chest concerning for possible atypical/mycobacterial pneumonia, cultures pending Infectious disease/Dr. Power consulted, appreciate recommendations #Vegetation seen on echocardiogram concerning for endocarditis At this point blood cultures remain negative drawn prior to initiation of an tibiotics Patient does not currently meet criteria for acute endocarditis diagnosis. Evaluated by Dr. Power who feels she could have had endocarditis previously in 2016 when she was bacteremic with MRSA #Positive urine culture secondary to asymptomatic bacteriuria versus UTI Suspect this is an asymptomatic bacteria as patient has no symptoms Urine culture positive for E. coli, patient is on antibiotic coverage as above which will also cover for this. #Sepsis secondary to right lower extremity soft tissue infection versus pneumonia versus other source 3/4 SIRS criteria met upon admission with fever, leukocytosis, and tachycardia Lactic acid elevated on admission and trended down. Pro-Albert elevated on admission. Blood cultures x2 negative at 48 hours Status post IV fluids, discontinued due to concern for cardiogenic shock Antibiotics as above #Elevated troponin secondary to demand ischemia from sepsis Troponin peaked on 06/03 at 6.2 and has trended down BNP has improved from 31,732 to 20,279 today. Continue on full dose aspirin and high intensity statin CT chest 06/02 show cardiomegaly with three-vessel coronary artery disease, may benefit from outpatient evaluation of coronary artery disease. Cardiology/Dr. Echavarria consulted, appreciate recommendations Echocardiogram revealed dilated right heart chambers with hypokinetic right ventricle, severe pulmonary hypertension, elevated CVP, mild aortic insufficiency with possible aortic vegetation, severe mitral annular thickening and thickening of the mitral leaflets with severe mitral insufficiency and mitral vegetation, and severe tricuspid insufficiency. #Right heart failure with valvular dysfunction See echocardiogram results above Continue symptomatic management, currently home diuretics are on hold due to treatment of sepsis. #Acute kidney injury with hyperkalemia, improved Suspect prerenal etiology with sepsis as discussed above Urine electrolytes were ordered but never collected. Nursing order to collect urine electrolytes. Status post IV fluids with improvement of kidney function toward baseline Baseline creatinine appears to be about 1.2 Hyperkalemia has resolved #Type 2 diabetes mellitus Consistent carb diet. Levemir and sliding scale insulin ACHS. Hypoglycemic protocol #History of DVT and PE Continue full anticoagulation on Eliquis #GERD Continue twice daily PPI while on aspirin and Eliquis # Multiple ulcerations on the lower extremities, stable Patient follows outpatient with Dr. Ledbetter weekly. She states her last appointment was 1 week ago. None of these wounds appear infected on admission. #Visual deficit at baseline, s/p cataract and glaucoma surgery Continue home meds: latanoprost, artifical tears, Dorzolamide/Timolol DVT prophylaxis: Continue full anticoagulation on Eliquis Disposition: Pending clinical improvement and PT evaluation VS,Bonbone, I+O VS, Bonbone, I+O Laboratory Tests 06/04/21 10:25 06/05/21 06:10 Vital Signs Date Time Temp Pulse Resp B/P (MAP) Pulse Ox O2 Delivery O2 Flow Rate FiO2 06/05/21 08:00 98.6 89 20 149/69 (95) 98 Nasal Cannula 2.0 I&O- Last 24 Hours up to 6 AM 06/05/21 05:59 Intake Total 0 ml Output Total 0 ml Balance 0 ml GME ATTESTATION GME ATTESTATION My faculty preceptor for this patient encounter was physically present during the encounter and was fully available. All aspects of the patient interview, examination, medical decision making process, and medical care plan development were reviewed and approved by the faculty preceptor. The faculty preceptor is aware and concurs with the plan as stated in the body of this note and will attest to such by his/her cosignature. ATTENDING NOTE I, Kelsie Rodriguez, have independently examined this patient and performed my own physical exam, as well as reviewed the documentation and edited where necessary with the resident. For medical students we have performed the physical exam together and discussed medical decision making and I have verified the history. I have discussed in detail with the resident / student the findings and plan of treatment as documented by the resident / student and edited their note. I agree with their findings and treatment plan and have edited their documentation. I will continue to follow the patient during this hospital stay. CONNIE MALIK D.O. Jun 05, 2021 10:27 KELSIE RODRIGUEZ MD Jun 05, 2021 12:48
--- NOTE | 2021-06-05 11:55 | IPN ---
PROGRESS NOTE DATE: 06/04/2021 SUBJECTIVE: Leatha is doing well. She states that she has a cough, but mostly it is postnasal drip and she is not able to expectorate. She thinks it is from allergies and sinuses. She was given an Acapella device that she has been using. She has had no nausea, vomiting or shortness of breath. Patient has mild pain in her right leg, especially when it is touched, but otherwise doing fairly well. She is walking to the bathroom. She was seen in consultation with Dr. Echavarria, who told her that she had a very poor prognosis based on the echocardiogram findings of severe right-sided heart failure and severe to moderately severe mitral regurgitation and pulmonary hypertension. The echocardiogram also showed a mitral valve vegetation measuring 0.8 x 0.4 cm. The valve is irregular. There is also moderately severe tricuspid insufficiency. Ejection fraction is 55-60%. Dilated right heart chambers with hypokinetic right ventricular free wall. On review of past medical history, the patient does not have a history of known endocarditis previously diagnosed, but in 2015, patient had prolonged hospitalization with infected heel decubitus ulcers with calcaneus osteomyelitis. In December of 2015, patient was admitted with right heel osteomyelitis with methicillin sensitive Streptococcus aureus (MSSA) with negative blood cultures. She was treated with intravenous (IV) followed by oral antibiotics for two weeks. Patient was readmitted February 07, 2016 and [facility], [facility]. She was admitted with a hip fracture, found to have Staphylococcus aureus bacteremia on three consecutive days. At that point, she was treated with IV antibiotics with vancomycin, nafcillin, cefazolin for a total of five weeks cumulative, followed by two weeks of oral Keflex. The patient had a transthoracic echocardiogram that did not show any vegetations at that time, but in any case, the patient received five weeks of IV and two weeks of oral antibiotics. Based on the fact that she had bacteremia for three days with Staphylococcus aureus and a CT imaging that showed a splenic infarction, she most likely had endocarditis that was treated appropriately. Currently, the patient is admitted with right lower extremity cellulitis with nausea and vomiting that has markedly improved. Her white count has improved. The patient does not have symptoms of endocarditis and her blood cultures are negative. Patient's current admission is not one of endocarditis. Her sedimentation rate is normal and patient is clinically doing well. Echocardiogram done on February 13, 2016, read by Dr. Echavarria, showed moderate mitral annular calcification with mild insufficiency and no vegetations noted. PHYSICAL EXAMINATION: GENERAL: Patient is alert and oriented, in no acute distress, upset about the news that Dr. Echavarria gave her about her life expectancy. VITAL SIGNS: Temperature 98.8, pulse 90, respirations 19, blood pressure 138/61, oxygen saturation 98% on 2 liters nasal cannula. She had a fever of 102.5 on admission that has resolved. HEART: Normal. S1, S2. There is a holosystolic murmur, 2/6, at the left lower sternal border and apex. LUNGS: Few inspiratory crackles at the lower lobes. No wheezes or rhonchi. ABDOMEN: Markedly obese, soft, nontender. EXTREMITIES: 1+ pitting edema. Dorsalis pedis pulses are not palpable. She has multiple toe amputations on the right side. The second and third toes are amputated. There is a heel ulceration that is practically completely healed except for a small area that has some blood, less than a centimeter opening. Left foot has also a heel decubitus that is practically healed as well. No redness or tenderness. Right leg has erythema below the knee to the ankle with induration and redness, with demarcation consistent with cellulitis. NEUROLOGIC: Intact. Alert and oriented times three. Legally blind, but patient in good spirits. LABORATORY DATA: White count 8.7, hemoglobin 11.1, hematocrit 36, platelets 234, 82% neutrophils, 8% lymphocytes, 5% monocytes. Erythrocyte sedimentation rate (ESR) 8. C-reactive protein (CRP) 16.6. Sodium 138, potassium 3.8, chloride 109, bicarbonate 24, BUN 24, creatinine 1.52, glucose 103, calcium 8.4. CPK 160. Troponin 6.2 down to 3.09. Blood cultures on 06/02/2021: No growth after 24 hours. Urine culture is pending. Respiratory panel is pending. Sputum culture has Staphylococcus aureus and yeast-like organisms, moderate white cells. Acid-fast bacilli (AFB) smears and cultures are pending. IMPRESSION: 1. A 65-year-old female with complicated past medical history, insulin dependent diabetic with no known previous cardiac history who was admitted with right lower extremity cellulitis. The patient is known to have previous infections with methicillin sensitive Streptococcus aureus (MSSA) and chronic osteomyelitis. She had a fever with leukocytosis and has received IV Zosyn and vancomycin with marked improvement of her symptoms. Fever has resolved and right lower extremity cellulitis has improved. If blood cultures remain negative tomorrow, I would suggest we change to oral linezolid 600 mg by mouth twice a day for seven days. 2. Abnormal chest CT with finding of reticular nodular infiltrates and adenopathy, which could be consistent with nontuberculous mycobacteria. The patient is currently being worked up for nontuberculous mycobacteria (NTM) or other fungal diseases. She will have sputum AFB smear and culture done times three while she is in the hospital. The first one has been negative. QuantiFERON-TB Gold has been sent. Urine Legionaire antigen and pneumococcal antigen are pending. Will also order cryptococcal antigen and histoplasma antigen antibody and Fungitell assay to rule out etiologies of abnormal chest CT. This is not an acute process. The patient has had a cough for over two years. 3. New vegetation noted on echocardiogram on the mitral valve with severe mitral regurgitation and right-sided heart failure with severe pulmonary hypertension. Case has been discussed at length with Dr. Echavarria, who stated that she definitely has a vegetation measuring 0.8 x 0.4 cm on the mitral valve. He cannot confirm that this is an acute vegetation, but compared to previous echocardiograms, it was not there. The history from 2016 is consistent with endocarditis during her hospitalization from February 08, 2016 to March 04, 2016. The patient had Staphylococcus aureus bacteremia for three consecutive days. At that time, she had osteomyelitis of the heel and had a hip fracture, and echocardiogram in 2016, which was transthoracic, did not detect the vegetation. The patient was treated from February 12, 2016 until March 20 for a total of five weeks of IV antibiotics followed by two weeks of by mouth cephalexin. Antibiotics were discontinued on April 01, 2016, which would be appropriate therapy for mitral valve endocarditis and also, the CT abdomen had a splenic infarction, which would also be consistent with endocarditis. Current presentation is not one of endocarditis 4. Right-sided heart failure with severe pulmonary hypertension. Patient would not be a good candidate for transesophageal echocardiogram risk of anesthesia and hypotension and since blood cultures are negative, will not pursue a transesophageal echocardiogram (SYDNEY), as this is very unlikely to be acute endocarditis 5. Methicillin-resistant Staphylococcus aureus (MRSA) colonization in the nares and Staphylococcus aureus sputum culture with an abnormal chest CT. The patient is being treated currently with Zosyn. Will add by mouth linezolid and if blood cultures are negative, patient can be switched to by mouth linezolid for cellulitis. PLAN: My suspicion for acute endocarditis for this admission is very unlikely. This is a presentation from 2016 with an old vegetation. Dr. Echavarria does not recommend a transesophageal echocardiogram. Case has been discussed with Dr. Rodirguez. The patient presented for a right lower extremity cellulitis, which sounded more like erysipelas, with acute onset of fever, nausea and vomiting. I will treat her with seven days of linezolid and then repeat blood cultures for surveillance as an outpatient. As far as abnormal chest CT with adenopathy and reticular nodular infiltrate, this needs to be followed up as an outpatient for nontuberculous mycobacteria (NTM) infection and she needs sputum AFB and culture to be done. Encourage to use the Acapella four times a day 15 times to try and improve mucociliary clearance. Patient will need to see me in the office after hospital discharge after 7-10 days. SIERRAD
[2021-06-05 12:00] VITALS: BP 143/79
[2021-06-05 19:56] VITALS: BP 112/64
[2021-06-05] MEDS: LATANOPROST 0.005% OPHTH SOLN 2.5 ML OU SCH (20:29)
[2021-06-05] MEDS: LEVEMIR (INSULIN DETEMIR) 1 UNITS/0.01ML SC SCH (23:03)
[2021-06-06] MEDS: PIPERACILLIN/TAZOBACTAM SOD 3.375 GM in D5W MINI-BAG PLUS 50 ML IV SCH ×2 (01:51→09:16)
[2021-06-06 06:00] VITALS: BP 138/74
[2021-06-06 07:53] LABS: BASO # 0.1 10^3/uL (0.0-0.2); BASO % 0.5 % (0.0-1.0); EOS # 0.3 10^3/uL (0.0-0.5); EOS % 2.9 % (0.0-3.0); HEMATOCRIT 35.7 % (36.0-47.0); HEMOGLOBIN 11.3 g/dl (12.0-15.5); LYMPH # 0.8 10^3/uL (1.5-5.0); LYMPH % 8.8 % (24.0-44.0); MEAN CORPUSCULAR HGB CONC 31.7 g/dl (32.0-36.5); MEAN CORPUSCULAR VOLUME 94.7 fl (80.0-96.0); MONO # 0.8 10^3/uL (0.0-0.8); MONO % 8.4 % (2.0-8.0); NEUTROPHILS # 7.5 10^3/uL (1.5-8.5); NEUTROPHILS % 78.9 % (36.0-66.0); RED BLOOD COUNT 3.77 10^6/uL (4.00-5.40); WHITE BLOOD COUNT 9.6 10^3/uL (4.0-10.0)
[2021-06-06 08:28] LABS: CALCIUM LEVEL 8.4 MG/DL (8.8-10.2); CREATININE FOR GFR 1.41 MG/DL (0.55-1.30); GLOMERULAR FILTRATION RATE 39.6 (>45); POTASSIUM SERUM 5.2 MEQ/L (3.5-5.1)
[2021-06-06] MEDS ORDERED: FUROSEMIDE 20MG/2ML VIAL (J1940) IV ONE (08:40)
[2021-06-06] MEDS: COSOPT OCUMETER PLUS 10ML (DORZOLAMIDE/TIMOLOL) OU SCH ×2 (09:14→20:18)
[2021-06-06] MEDS: ASPIRIN 325 MG TAB PO SCH (09:17)
[2021-06-06] MEDS: PANTOPRAZOLE 40MG TAB (PROTONIX) PO SCH ×2 (09:17→20:36)
[2021-06-06] MEDS: GABAPENTIN 300 MG CAP PO SCH ×3 (09:17→20:36)
[2021-06-06] MEDS: HumaLOG INSULIN (NovoLOG) PER UNIT SC SCH ×4 (09:17→20:17)
[2021-06-06] MEDS: LINEZOLID 600MG TABLET (ZYVOX) PO SCH ×2 (09:18→20:36)
[2021-06-06] MEDS: APIXABAN 5 MG TAB (ELIQUIS) PO SCH ×2 (09:18→20:36)
[2021-06-06] MEDS: ATORVASTATIN 20 MG TAB PO SCH (09:18)
[2021-06-06 11:45] LABS: CALCIUM LEVEL 7.9 MG/DL (8.8-10.2); CREATININE FOR GFR 1.45 MG/DL (0.55-1.30); GLOMERULAR FILTRATION RATE 38.3 (>45); POTASSIUM SERUM 3.9 MEQ/L (3.5-5.1)
--- NOTE | 2021-06-06 13:41 | IPNPDOC ---
Text Note Date of Service The patient was seen on 06/06/21. NOTE Subjective: Patient is a 65-year-old female with a PMHx of Right sided CHF, HTN, PVD (s/p L TMA, multiple R toe amputations), IDDM2, DVT/PE (on Eliquis), Neuropathy, GERD who presented to the ER on 06/02 with nausea and vomiting for 1 day duration. Patient was admitted to the hospital service for further evaluation and treatment for suspected right lower extremity erysipelas/cellulitis. Patient was seen and examined at the bedside. Patient denies any nausea, vomiting, chest pain, shortness of breath, palpitations, abdominal pain, diarrhea, or urinary discomfort. Patient is on 1 L of nasal cannula oxygen, however, she takes it off and her sa turation drops to the 80s. Objective: Vitals (See below) General: Lying in bed, no acute distress, comfortable, AAOx3 HEENT: NC, AT CVS: RRR, +S1S2 Lungs: Fair air entry b/l, -w/r/r Abdomen: Soft, ND, NT, +BSx4 Extremities: +PPx4, - Edema, - Calf tenderness Imaging: CXR 06/02: Global cardiomegaly and possible mild interstitial edema. CT abdomen / pelvis 06/02: 1. Mild mucosal enhancement and intraluminal fluid in the small bowel is nonspecific but may indicate a viral enteritis. No bowel obstruction. 2. Hepatic steatosis. 3. Atrophic pancreas. Small cystic structure in the pancreatic body is nons pecific. Pancreatic MRI follow-up is recommended. CT Chest 06/02: 1. Ground-glass attenuation in both lungs and patchy alveolar opacities and reticulonodular opacities in the right middle and lower lobes suggesting an atypical or mycobacterial pneumonia. Mild mediastinal adenopathy. 2. Cardiomegaly with three-vessel coronary artery disease. 3. Small left pleural effusion. CXR 06/03: No acute cardiopulmonary process appreciated. Assessment and plan: Hypoxia - likely 2/2 component of KAYA and fluid hydration - Patient was trialed off of nasal cannula oxygen. However, her saturations drop to the 80s - BNP significantly elevated - Will give single dose of Furosemide today - Patient will likely require outpatient sleep study for possible CPAP s/p Sepsis - 2/2 RLE erysipelas; less likely 2/2 PNA, less likely 2/2 UTI - Clinically patient has had significant improvement - Hemodynamically stable / Afebrile - s/p Leukocytosis / No lactic acidosis - Blood cultures 06/02: No growth at 72 hours - c/w Linezolid; Will DC Zosyn; s/p Vancomycin (Antibiotic day #4) Right lower extremity cellulitis / erysipelas - MRSA positive - Infectious disease on consultation; we appreciate their input Persistent cough 2/2 possibly PNA, possibly 2/2 mycobacterial pneumonia - Respiratory panel 06/03: Negative - Sputum culture 06/03: MRSA - AFB cultures pending - CT chest concerning for possible atypical/mycobacterial pneumonia - Infectious disease on consultation; we appreciate their input Asymptomatic bacteriuria - Urine culture 06/02: Escherichia coli Vegetation seen on echocardiogram - likely 2/2 prior history of MRSA bacteremia / endocarditis (2015) - Cultures noted above - No anterior for endocarditis - Infectious disease on consultation; we appreciate their input Elevated troponin - likely 2/2 NSTEMI Type II 2/2 sepsis - Patient has not experience any chest pain, shortness of breath or palpitations - EKG reviewed - Troponin trend noted - c/w ASA / Atorvastatin / Eliquis - Cardiology on consultation; appreciate their input - Patient will absolutely require further cardiac evaluation as an outpatient Right heart failure with valvular dysfunction - ECHO noted above s/p Hyperkalemia NICK on CKD3; possibly 2/2 pre-renal etiology (2/2 hypovolemia 2/2 infection), possibly 2/2 intra-renal etiology (2/2 contrast) - Cr baseline of ~1.4-1.5 ([facility] reviewed lab work from 11/2020) - Cr appears to be at baseline - s/p IV fluids IDDM2 with Neuropathy - c/w ISS and Levemir - c/w Gabapentin Hx of DVT / PE - c/w full anticoagulation with Eliquis PVD / Multiple ulcerations on the lower extremities - Follows with Dr. Yanez on a weekly basis - No evidence of infection Visual deficit at baseline - s/p cataract and glaucoma surgery - c/w Latanoprost / Artifical tears / Dorzolamide/Timolol GERD - c/w Protonix DVT prophylaxis - c/w full anticoagulation with Eliquis Disposition: - Pending clinical improvement; once off oxygen - Cleared PT VS,Fishbone, I+O VS, Fishbone, I+O Laboratory Tests 06/06/21 07:35 06/06/21 11:18 Vital Signs Date Time Temp Pulse Resp B/P (MAP) Pulse Ox O2 Delivery O2 Flow Rate FiO2 06/06/21 06:00 99.1 82 19 138/74 (95) 96 Nasal Cannula 1.0 I&O- Last 24 Hours up to 6 AM 06/06/21 06:00 Intake Total 520 ml Balance 520 ml KATY BARNHART MD Jun 06, 2021 13:41
[2021-06-06 14:00] VITALS: BP 136/70
[2021-06-06 19:45] VITALS: BP 140/74
[2021-06-06] MEDS: LATANOPROST 0.005% OPHTH SOLN 2.5 ML OU SCH (20:36)
[2021-06-06] MEDS ORDERED: MONTELUKAST 10 MG TAB PO SCH (21:00)
[2021-06-06] MEDS: LEVEMIR (INSULIN DETEMIR) 1 UNITS/0.01ML SC SCH (23:00)
[2021-06-07] MEDS: ACETAMINOPHEN TAB 650MG DOSE (2X325MG) PO PRN (00:10)
[2021-06-07 06:00] VITALS: BP 132/78
[2021-06-07 06:21] LABS: BASO % 0.5 % (0.0-1.0); EOS # 0.2 10^3/uL (0.0-0.5); EOS % 2.3 % (0.0-3.0); HEMATOCRIT 33.6 % (36.0-47.0); HEMOGLOBIN 10.3 g/dl (12.0-15.5); LYMPH # 1.4 10^3/uL (1.5-5.0); LYMPH % 16.3 % (24.0-44.0); MEAN CORPUSCULAR HEMOGLOBIN 28.9 pg (27.0-33.0); MEAN CORPUSCULAR HGB CONC 30.7 g/dl (32.0-36.5); MEAN CORPUSCULAR VOLUME 94.4 fl (80.0-96.0); MONO # 0.6 10^3/uL (0.0-0.8); MONO % 7.1 % (2.0-8.0); NEUTROPHILS # 6.2 10^3/uL (1.5-8.5); PLATELET COUNT, AUTOMATED 248 10^3/uL (150-450); RED BLOOD COUNT 3.56 10^6/uL (4.00-5.40); WHITE BLOOD COUNT 8.4 10^3/uL (4.0-10.0)
[2021-06-07 06:47] LABS: CALCIUM LEVEL 8.5 MG/DL (8.8-10.2); CREATININE FOR GFR 1.43 MG/DL (0.55-1.30); POTASSIUM SERUM 3.6 MEQ/L (3.5-5.1)
[2021-06-07] MEDS ORDERED: FLUTICASONE PROP 0.05% NASAL SPRAY 16 GM (FLONASE) NARES SCH (09:00)
[2021-06-07] MEDS: HumaLOG INSULIN (NovoLOG) PER UNIT SC SCH ×2 (09:01→13:13)
[2021-06-07] MEDS: ATORVASTATIN 20 MG TAB PO SCH (09:02)
[2021-06-07] MEDS: COSOPT OCUMETER PLUS 10ML (DORZOLAMIDE/TIMOLOL) OU SCH (09:02)
[2021-06-07] MEDS: ASPIRIN 325 MG TAB PO SCH (09:02)
[2021-06-07] MEDS: APIXABAN 5 MG TAB (ELIQUIS) PO SCH (09:03)
[2021-06-07] MEDS: PANTOPRAZOLE 40MG TAB (PROTONIX) PO SCH (09:03)
[2021-06-07] MEDS: LINEZOLID 600MG TABLET (ZYVOX) PO SCH (09:03)
[2021-06-07] MEDS: GABAPENTIN 300 MG CAP PO SCH (09:03)
[2021-06-07] MEDS ORDERED: SODIUM CHLORIDE HYPERTONIC 3% 15ML NEB SOL NEB ONE (11:00)
[2021-06-07] MEDS ORDERED: LINE1TAB6 PO (13:54)
[2021-06-07] MEDS ORDERED: ATOR1TAB21 PO (13:54)
[2021-06-07] MEDS ORDERED: ASPI81CH33 PO (13:54)
[2021-06-07 14:00] VITALS: BP 122/70
--- NOTE | 2021-06-07 19:23 | DS.PDOC ---
Discharge Summary General Date of Admission Jun 02, 2021 at 20:40 Date of Discharge Jun 07, 2021 Attending Physician: KATY BARNHART MD Discharge Summary PROCEDURES PERFORMED DURING STAY: None. ADMITTING DIAGNOSES: 1. Sepsis 2/2 cellulitis of right lower extremity 2. Chronic cough 2/2 possibly PNA 3. UTI 4. Elevated troponin 2/2 sepsis vs CAD 5. Hyperkalemia 6. IDDMT2. 7. NICK 8. Hx of DVT and PE 9. PVD with multiple ulcerations on lower extremities DISCHARGE DIAGNOSES: 1. Sepsis 2/2 erysipelas of right lower extremity 2. Chronic cough 2/2 possibly PNA, possibly mycobacterial PNA 3. Asymptomatic bacteriuria 4. Vegetation on echocardiogram 5. Type II NSTEMI 2/2 sepsis 6. NICK on CKD3 7. PVD with multiple ulcerations on lower extremities COMPLICATIONS/CHIEF COMPLAINT: FEVER. HISTORY OF PRESENT ILLNESS: Ms. Moreno is a 65 yo F with a PMH of IDDMT2, HTN, PVD requiring metatarsal amputations, GERD, DVT with PE presents with one day history of nausea with vomiting. Pt states she was nauseous this morning and was not able to keep her breakfast down causing her to vomit several times. Pt is unable to recall the volume or describe the vomit as her cataracts prevent her from seeing clearly. Pt's was concerned about her and encouraged her to go to the ED. Pt states she usually has a post-nasal drip for many years that causes her to have a chronic cough which causes her to vomit about 1x a month. Of note, pt presented to the ED on insistence by her for similar presentations. While in the ED, pt was found to have a fever of 102 and tachycardia in the 10 0's with leukocytosis. Pt was also found to have an elevated BNP with trop of 0.58. Pt denies any fever, chills, fatigue, headache, sore throat, cough, SOB, wheezing, chest pain, palpitations, abdominal pain, diarrhea, constipation, muscle weakness. On examination, pt was found to have erythema of the right LLE that is warm to the touch with clear demarcations. Lines were drawn demarcating the erythema. Imaging of CXR showed global cardiomegaly and possible mild interstitial edema. EKG was performed. Pt was given IVF, Tylenol, and started on IV Zosyn. Pt admitted to the hospital for sepsis 2/2 possible cellulitis of left LE. After being admitted to the floor, patient was found to be MRSA positive and IV Vancomycin was added. Due to the patients complicated history chronic osteomyelitis and MSSA with a recent abnormal echocardiogram suspicious for mitral valve vegetation, infectious disease was consulted. A CT abdomen and pelvis was done and was non-significant for other etiologies to explain symptoms other than possible viral enteritis. Patient's BCx came back negative and IV antibiotics were changed to PO Linezolid. In regards to the CT chest, infectious disease believed it to be less likely PNA as respiratory panel was negative and more consistent with nontuberculous mycobacteria or other fungal diseases. Three AFB smears were ordered and one smear was obtained in the hospital which came back negative. Sputum Cx showed MRSA. Urine Cx showed E. coli for which was treated with with concurrent abx coverage. Patients cellulitis was treated with concurrent abx coveraged and improved clinically over the course of the hospitalization. BNP peaked at 31,732 and troponin peaked at 6.2 and both have trended down over the hospitalization course. Patient has remained afebrile, no n-tachycardic or tachypneic with leukocytosis resolved. Pt has been medically cleared for discharge. She will need close follow up with cardiology given her elevated troponin levels, abnormal echocardiogram, and CT findings during this admission. She will also need close follow up with infectious disease given her multiple sources of infection on admission and pending work up. DISCHARGE MEDICATIONS: Please see below. ALLERGIES: Please see below. PHYSICAL EXAMINATION ON DISCHARGE: VITALS: see below GENERAL: Pt sitting comfortably in bed in NAD. HEENT: Head AT, NC. Neck supple, no lymphadenopathy. LUNGS: Expiratory rales appreciated bilaterally. No wheezing or crackles. HEART: RRR, S1S2. No murmurs, gallops, rubs. ABDOMEN: Soft and tender to deep palpation in RUQ. No mass or guarding. EXTREMITIES: Extremities warm to touch. Pt wearing shoes and has compression stockings. Trace bilateral edema. SKIN/NAILS: No erythema in right LL where pen was marked. MUSCULOSKELETAL: Moves all extremities. Strength equal bilaterally. LABORATORY DATA: Please see below. IMAGING: CXR 06/02: Global cardiomegaly and possible mild interstitial edema. CT abdomen / pelvis 06/02: 1. Mild mucosal enhancement and intraluminal fluid in the small bowel is nonspecific but may indicate a viral enteritis. No bowel obstruction. 2. Hepatic steatosis. 3. Atrophic pancreas. Small cystic structure in the pancreatic body is nonspecific. Pancreatic MRI follow-up is recommended. CT Chest 06/02: 1. Ground-glass attenuation in both lungs and patchy alveolar opacities and reticulonodular opacities in the right middle and lower lobes suggesting an atypical or mycobacterial pneumonia. Mild mediastinal adenopathy. 2. Cardiomegaly with three-vessel coronary artery disease. 3. Small left pleural effusion. CXR 06/03: No acute cardiopulmonary process appreciated. PROGNOSIS: Good ACTIVITY: As tolerated. DIET: Consistent carbs DISCHARGE PLAN/DISPOSITION: Home, Self-Care. DISCHARGE INSTRUCTIONS: ollow-up with your PCP in 7-10 days Follow-up with infectious disease in 1 week Follow up with cardiology in 2 weeks Please complete the full course of antibiotics Please continue on medication started during your hospitalization including aspirin and atorvastatin. You can stop taking your home simvastatin. If your symptoms return or your condition worsens, please call your PCP or return to the ED for further evaluation. DISCHARGE CONDITION: Stable. TIME SPENT ON DISCHARGE: 35 minutes. Vital Signs/I&Os Vital Signs Date Time Temp Pulse Resp B/P (MAP) Pulse Ox O2 Delivery O2 Flow Rate FiO2 06/07/21 14:00 97.8 63 16 122/70 (87) 93 Room Air 06/07/21 01:52 1.0 I&O- Last 24 Hours up to 6 AM 06/07/21 06:00 Intake Total 886 ml Output Total 250 ml Balance 636 ml Laboratory Data Labs 24H Laboratory Tests 2 06/06/21 20:15: Bedside Glucose (Misc Panel) 171H 06/07/21 01:56: Bedside Glucose (Misc Panel) 167H 06/07/21 05:47: Immature Granulocyte % (Auto) 0.8, Neutrophils (%) (Auto) 73.0H, Lymphocytes (%) (Auto) 16.3L, Monocytes (%) (Auto) 7.1, Eosinophils (%) (Auto) 2.3, Basophils (%) (Auto) 0.5, Neutrophils # (Auto) 6.2, Lymphocytes # (Auto) 1.4L, Monocytes # (Auto) 0.6, Eosinophils # (Auto) 0.2, Basophils # (Auto) 0.0, Nucleated Red Blood Cells % (auto) 0.0, Anion Gap 5L, Glomerular Filtration Rate 39.0L, Calcium Level 8.5L, JR-Nas-Y-Type Natriuretic Peptide 06/07/21 11:54: Bedside Glucose (Misc Panel) 204H CBC/BMP Laboratory Tests 06/07/21 05:47 FSBS Laboratory Tests Test 06/06/21 20:15 06/07/21 01:56 06/07/21 11:54 Range/Units Bedside Glucose (Misc Panel) 171 167 204 80-115 MG/DL Microbiology Microbiology 06/03/21 Acid Fast Stain - Final, Resulted 06/03/21 Mycobacterial Culture, Resulted Pending 06/03/21 Gram Stain - Final, Complete 06/03/21 Sputum Culture - Final, Complete Staph.aureus Methicillin Resis Yeast Like Organism 06/03/21 Respiratory Virus Panel (PCR) (CHIDI) - Final, Complete 06/02/21 Urine Culture - Final, Complete Escherichia Coli 06/02/21 Blood Culture - Final, Complete NO GROWTH AFTER 5 DAYS 06/02/21 Blood Culture - Final, Complete NO GROWTH AFTER 5 DAYS Discharge Medications Scheduled Apixaban (Eliquis) 5 Mg Tablet, 5 MG PO BID, (Reported) Aspirin (Aspirin) 81 Mg Tab.chew, 1 TAB PO DAILY Atorvastatin Calcium (Atorvastatin Calcium) 20 Mg Tablet, 80 MG PO DAILY Brimonidine Tartrate (Brimonidine Tartrate) 0.2% 5ML Drops, 1 DROP OU BID, (Reported) Dorzolamide HCl/Timolol Maleat (Dorzolamide-Timolol Eye Drops) 10 Ml Drops, 1 DROP OU BID, (Reported) Duloxetine Hcl (Duloxetine HCl) 30 Mg Capsule.dr, 30 MG PO DAILY, (Reported) Ferrous Gluconate (Ferrous Gluconate) 324 Mg Tablet, 324 MG PO Q2D, (Reported) Fexofenadine HCl (Fexofenadine HCl) 180 Mg Tablet, 180 MG PO DAILY, (Reported) Fluticasone Propionate (Fluticasone Propionate) 16 Gm Hardesty.susp, 2 SPRAYS NARES DAILY, (Reported) Furosemide (Furosemide) 20 Mg Tablet, 20 MG PO DAILY, (Reported) Gabapentin (Gabapentin) 400 Mg Capsule, 400 MG PO TID, (Reported) Insulin Aspart (Novolog Flexpen) 100 Unit/1 Ml Insuln.pen, 16 UNITS SC TID, (Reported) Insulin Detemir (Levemir) 1 Units/0.01 Ml Susp, 55 UNITS SC QPM, (Reported) AFTER DINNER Latanoprost (Xalatan) 0.005% 2.5ML Drops, 1 DROP OU QHS, (Reported) Linezolid (Linezolid) 600 Mg Tablet, 600 MG PO BID Lisinopril (Lisinopril) 10 Mg Tablet, 10 MG PO DAILY, (Reported) Montelukast Sodium (Singulair) 10 Mg Tablet, 10 MG PO QHS, (Reported) Pantoprazole Sodium (Protonix) 40 Mg Tab, 40 MG PO DAILY, (Reported) Scheduled PRN Polyvinyl Alcohol (Artificial Tears) 15 Ml Drops, 1 DROP OU BID PRN for DRY EYES, (Reported) Allergies Coded Allergies: codeine (Verified Adverse Reaction, Severe, COMA FOR 5 DAYS, 06/02/21) CARLI PONCE OMS-4 Jun 07, 2021 19:01 CONNIE MALIK D.O. Jun 07, 2021 19:41
== END 2021-06-07 16:30 | disposition home or self-care (01) | DRG 871 ==
LOC: M ED 12:43 → EDBD 12:43 → M ED INP 12:44 → EEVIPCON 20:40 → OBSVTOIN 20:40 → M PCU 21:31 → M MSPAV 06-05 11:40
PROVIDERS: ADMIT Internal Medicine; ATTEND Internal Medicine
DX: A41.9 Sepsis, unspecified organism (principal); I21.4 Non-ST elevation (NSTEMI) myocardial infarction; J18.9 Pneumonia, unspecified organism; N39.0 Urinary tract infection, site not specified; N17.9 Acute kidney failure, unspecified; L97.429 Non-pressure chronic ulcer of left heel and midfoot with unspecified severity; L97.419 Non-pressure chronic ulcer of right heel and midfoot with unspecified severity; A46 Erysipelas; I10 Essential (primary) hypertension; I73.9 Peripheral vascular disease, unspecified; K21.9 Gastro-esophageal reflux disease without esophagitis; Z86.711 Personal history of pulmonary embolism; Z86.718 Personal history of other venous thrombosis and embolism; Z90.49 Acquired absence of other specified parts of digestive tract; Z98.41 Cataract extraction status, right eye; Z98.42 Cataract extraction status, left eye; Z96.641 Presence of right artificial hip joint; Z20.822 Contact with and (suspected) exposure to COVID-19; Z79.01 Long term (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 of anticoagulants; Z79.84 Long term (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 of oral hypoglycemic drugs; Z79.4 Long term (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 of insulin; Z79.899 Other long term (current) drug therapy; Z88.5 Allergy status to narcotic agent; E87.5 Hyperkalemia; E78.5 Hyperlipidemia, unspecified; E11.42 Type 2 diabetes mellitus with diabetic polyneuropathy; E11.621 Type 2 diabetes mellitus with foot ulcer; Z89.421 Acquired absence of other right toe(s); Z89.411 Acquired absence of right great toe; Z90.79 Acquired absence of other genital organ(s)

== ENCOUNTER → 2021-06-18 | Outpatient (REF) | payer MEDICARE, OTHER, MEDICAID ==
[~2021-06-18] MED LIST changes: +ASPI81CH33 PO; +ATOR1TAB21 PO; +LINE1TAB6 PO; +POLYOPD OU
== END ==
LOC: M LAB REF 16:30
PROVIDERS: ATTEND Internal Medicine
DX: L03.115 Cellulitis of right lower limb (principal)

== ENCOUNTER → 2021-06-18 | Outpatient (REF) | payer MEDICARE, OTHER, MEDICAID | LOC: M LAB REF 13:26 | PROVIDERS: ATTEND Internal Medicine | DX: L03.115 Cellulitis of right lower limb (principal); R50.9 Fever, unspecified ==

== ENCOUNTER → 2021-06-29 | Outpatient (CLI) | payer MEDICARE, MEDICAID ==
--- NOTE | 2021-06-29 17:27 | REPMRS ---
Patient History The patient states she has not had a clinical breast exam in over a year. No known family history of cancer. Patient states no breast complaints today. Patient has signed MRS History Sheet. Digital Woman Screen Mammo: June 29, 2021 - Exam #: [id number] Bilateral CC and MLO view(s) were taken. Technologist: Mamta Higuera, Technologist Prior study comparison: April 23, 2020, bilateral digital mammo screening bilat, performed at [facility]. April 19, 2019, bilateral digital mammo screening bilat, performed at [facility]. FINDINGS: There are scattered fibroglandular densities. Screening. Digital screening (2D) mammography was performed bilaterally in the CC and MLO projections. Additionally, breast tomosynthesis (3D mammography) was performed bilaterally in the CC and MLO projections. Todays exam was compared to the prior exam/exams. By history, the patient has no complaints of a palpable breast abnormality or other significant breast complaints. The Volpara volumetric breast density category is B, there are scattered areas of fibroglandular densities. The breasts are unchanged in size and shape. There are no bebo-soft tissue densities or spiculated masses. There is no internal architectural distortion. There are no suspicious bebo-calcific clusters. Skin thickening or nipple retraction is not present. IMPRESSION: BI-RADS Category 2- Benign Findings. There is no evidence of malignant alteration of the breasts. Followup examination recommended in one year. The lifetime Tyrer-Cuzick score is 4.7% This mammogram was read with the assistance [facility],an FDA approved computer aided detection system for mammography. Negative x-ray reports should not delay surgical consultation if a dominant or clinically suspicious mass is present. Not all breast cancers can be identified by mammography. Therefore, we recommend that you continue to perform regular breast self-examination and physical examination and then promptly contact your physician of any concerns or changes. Adenosis and dense breasts may obscure an underlying neoplasm. No significant changes when compared with prior studies. Assessment: BI-RADS/ACR category 2 mammogram. Benign Findings. Recommendation Routine screening mammogram of both breasts in 1 year. Electronically Signed By: Campbell Vee MD 06/29/21 [id number]
== END ==
LOC: M WHC 14:28
PROVIDERS: ATTEND Internal Medicine
DX: Z12.31 Encounter for screening mammogram for malignant neoplasm of breast (principal)

== ENCOUNTER → 2021-07-22 | Outpatient (CLI) | payer MEDICARE, MEDICAID ==
--- NOTE | 2021-07-23 06:06 | REP ---
INDICATION: NON PRESSURE ULCER OF LT AND RT EXTREMITIES RECENT ANGIOPLASTY. COMPARISON: 09/02/2020 TECHNIQUE: Real time spaulding scale and color Doppler evaluation of the bilateral lower extremity arterial vasculature using linear high frequency transducer. FINDINGS: Spaulding scale and color images demonstrate extensive bilateral partially calcified atherosclerotic plaquing, and surrounding significant subcutaneous edema severely limits evaluation. Right lower extremity demonstrates reversed flow in the posterior tibial artery and single vessel flow to the foot per anterior tibial artery. Biphasic arterial wave patterns noted from the common femoral artery through the superficial femoral artery followed by monophasic wave patterns in the popliteal artery and anterior tibial artery. Left lower extremity also demonstrates single vessel flow to the foot per anterior tibial artery. Biphasic arterial wave patterns are now identified from the common femoral artery through the popliteal artery as well as the anterior tibial artery. Peak systolic velocities (cm/sec) Common femoral artery: Right 116; Left 124 Profunda femoris: Right 151; Left 122 SFA (proximal): Right 98; Left 90 SFA (mid): Right 58; Left 95 SFA (distal): Right 34; Left 45 Popliteal artery: Right 40; Left 42 Tibioperoneal trunk: Right not visualized; Left not visualized PULLMAN [employer] REPA[employer]ER (prox.): Right not visualized; Left not visualized PULLMAN CAR REPAIRER (distal): Right reversed; Left not visualized/occluded Peroneal (prox.): Right not visualized; Left not visualized Peroneal (distal): Right not visualized; Left not visualized NESTOR (prox.): Right not visualized; Left 13 NESTOR (distal): Right 84; Left 59 IMPRESSION: Extensive atherosclerotic changes and significant surrounding subcutaneous edema limit evaluation. Findings as detailed above. <Electronically signed by Wallace Renae > 07/23/21 [id number]
== END ==
LOC: M RAD 10:47
PROVIDERS: ATTEND Surgery
DX: L97.929 Non-pressure chronic ulcer of unspecified part of left lower leg with unspecified severity (principal); L97.512 Non-pressure chronic ulcer of other part of right foot with fat layer exposed

== ENCOUNTER → 2021-09-10 | Outpatient (CLI) | payer MEDICARE, MEDICAID ==
[~2021-09-10] MED LIST changes: +ALEV220T22 PO; +BRIM0.2S13 OS; -BRIM0.2S13 OU; -LISI10TA15 PO; +LISI10TA24 PO
== END ==
LOC: M LABSMTC 10:30
PROVIDERS: ATTEND Anesthesiology
DX: Z01.812 Encounter for preprocedural laboratory examination (principal); Z20.822 Contact with and (suspected) exposure to COVID-19

== ENCOUNTER → 2021-10-29 | Outpatient (REF) | payer MEDICARE, OTHER, MEDICAID ==
[~2021-10-29] MED LIST changes: +FEXO-111 PO; -FEXO180T70 PO; -TOBR0.3S OD; +TOBR0.3S10 OD
[2021-10-29 17:54] LABS: C REACTIVE PROTEIN QUANTITATIV 8.97 MG/DL (0.00-0.30); PERCENT SATURATION 23.3 % (13.2-45.0)
== END ==
LOC: M LAB REF 16:22
PROVIDERS: ATTEND Internal Medicine
DX: D50.9 Iron deficiency anemia, unspecified (principal)

== ENCOUNTER → 2021-11-11 | Outpatient (REF) | payer MEDICARE, MEDICAID, OTHER | LOC: M LAB REF 14:38 | PROVIDERS: ATTEND Internal Medicine | DX: L03.115 Cellulitis of right lower limb (principal) ==

== ENCOUNTER → 2021-12-07 | Outpatient (REF) | payer MEDICARE, MEDICAID, OTHER ==
[~2021-12-07] MED LIST changes: +ATOR80TA59 PO
== END ==
LOC: M SFHCWOUN 15:43
PROVIDERS: ATTEND Surgery
DX: L97.522 Non-pressure chronic ulcer of other part of left foot with fat layer exposed (principal)
CPT/HCPCS: 11044; 87070; 87077; 87186; 88304; 88311; G0463

== ENCOUNTER → 2021-12-15 | Outpatient (CLI) | payer MEDICARE, OTHER | LOC: M LABSMTC 09:05 | PROVIDERS: ATTEND Anesthesiology | DX: Z01.812 Encounter for preprocedural laboratory examination (principal); Z20.822 Contact with and (suspected) exposure to COVID-19 ==

== ENCOUNTER → 2021-12-21 | Outpatient (POV) | payer MEDICARE, OTHER ==
[~2021-12-21] VITALS: Ht 162.6 cm; Wt 97.7 kg
[2021-12-21 11:25] VITALS: BP 130/76
== END ==
LOC: M IRPOV 10:50
PROVIDERS: ATTEND Radiology Diagnostic Radiology
DX: T87.89 Other complications of amputation stump (principal); I70.201 Unspecified atherosclerosis of native arteries of extremities, right leg; I70.245 Atherosclerosis of native arteries of left leg with ulceration of other part of foot; E11.40 Type 2 diabetes mellitus with diabetic neuropathy, unspecified; E11.21 Type 2 diabetes mellitus with diabetic nephropathy; Z79.01 Long term (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 of anticoagulants; Z79.899 Other long term (current) drug therapy; Z88.5 Allergy status to narcotic agent